=== PATIENT | male | born 1975 | race Caucasian/White ===

== ENCOUNTER 2019-02-24 21:26 | Outpatient (CLI) | payer SELFPAY | END 2019-02-24 21:27 | disposition EMS.NT | LOC: EMS 21:26 | PROVIDERS: ATTEND Surgery | DX: R05 Cough (principal) ==

== ENCOUNTER 2019-11-18 23:59 | Inpatient (IN) | payer MEDICAID ==
--- NOTE | 2019-11-19 00:01 | ED Physician Documentation ---
History of Present Illness - Stated complaint Stated Complaint: AB/BACK PX - History obtained from History obtained from: Patient (Patient is a 43-year-old male who presents with severe abdominal pain with vomiting patient reports he has been drinking alcohol heavily over the last several weeks since he is not been working due to the pandemic. He reports vomiting without hematemesis she also reports multiple bowel movements daily he reports severe abdominal pain he reports he has been taking an increased amounts of Tylenol and ibuprofen and aspirin.He also reports that he has been taking a friend's Bentyl as well as Prilosec.He denies any previous history of abdominal surgeryOtherwise denies any other complaints. He denies any recent fevers, headaches, cough or sore throat denies any recent travel outside the country and denies any recent antibiotic use.) Review of Systems Constitutional: reports: Reviewed and negative Eyes: reports: Reviewed and negative Ears: reports: Reviewed and negative Nose: reports: Reviewed and negative Throat: reports: Reviewed and negative Cardiac: reports: Reviewed and negative Respiratory: reports: Reviewed and negative GI: reports: Abdominal Pain, Nausea, Vomiting, Diarrhea : reports: Reviewed and negative Skin: reports: Reviewed and negative Musculoskeletal: reports: Reviewed and negative Neurologic: reports: Reviewed and negative Psychiatric: reports: Reviewed and negative Endocrine: reports: Reviewed and negative Immunocompromised: reports: Reviewed and negative PD PAST MEDICAL HISTORY - Allergies Allergies/Adverse Reactions: Allergies Allergy/AdvReac Type Severity Reaction Status Date / Time No Known Drug Allergies Allergy Verified 11/19/19 00:23 PD ED PE NORMAL - Vitals Vital signs reviewed: Yes - General General: Alert and oriented X 3, No acute distress, Well developed/nourished - HEENT HEENT: PERRL - Neck Neck: Supple, no meningeal sign, No JVD - Cardiac Cardiac: RRR, No murmur, Strong equal pulses - Respiratory Respiratory: No respiratory distress, Clear bilaterally - Abdomen Abdomen: Other (The abdomen is diffusely tender with diminished bowel sounds he is has involuntary guarding he has positive peritoneal signs no ecchymosis no midline abdominal pulsatile mass) - Rectal Rectal: Deferred, Pt declined - Back Back: No CVA TTP, No spinal TTP - Derm Derm: Normal color, Warm and dry, No rash - Extremities Extremities: No deformity, No tenderness to palpate, Normal ROM s pain, No edema, No calf tenderness / cord - Neuro Neuro: Alert and oriented X 3, 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, No motor deficit, No sensory deficit, Normal speech - Psych Psych: Normal mood, Normal affect Results - Vitals Vitals: Vital Signs - 24 hr 11/19/19 11/19/19 11/19/19 00:10 00:36 02:16 Temperature 36.6 C Heart Rate 117 H 117 H Respiratory 24 26 H 13 Rate Blood Pressure 158/130 H 159/112 H O2 Saturation 158 H 100 Oxygen O2 Source Room air - EKG (time done) 00:25 Rate: Other (no stemi) - Labs Labs: Laboratory Tests 11/19/19 11/19/19 11/19/19 00:15 00:15 00:15 WBC 14.9 H RBC 4.79 Hgb 16.8 Hct 47.1 MCV 98.3 H MCH 35.1 H MCHC 35.7 RDW 12.9 Plt Count 244 MPV 9.3 Neut # (Auto) 12.7 H Lymph # (Auto) 1.3 L [place] # (Auto) 0.8 Eos # (Auto) 0.0 Baso # (Auto) 0.1 Absolute Nucleated RBC 0.00 Nucleated RBC % 0.0 PT 13.6 H INR 1.2 APTT 28.1 Sodium 136 Potassium 3.1 L Chloride 96 L Carbon Dioxide 20 L Anion Gap 20.0 H BUN 5 L Creatinine 0.7 Estimated GFR (MDRD) 123 Glucose 168 H Lactic Acid Calcium 9.2 Total Bilirubin 1.3 H Direct Bilirubin 0.5 AST 156 H ALT 100 H Alkaline Phosphatase 145 H Total Creatine Kinase 90 Troponin I High Sens Total Protein 8.1 Albumin 4.8 Globulin 3.3 Lipase 1510 H Salicylates < 6.0 Acetaminophen 11 Ethyl Alcohol 39.6 11/19/19 11/19/19 00:15 00:15 WBC RBC Hgb Hct MCV MCH MCHC RDW Plt Count MPV Neut # (Auto) Lymph # (Auto) [place] # (Auto) Eos # (Auto) Baso # (Auto) Absolute Nucleated RBC Nucleated RBC % PT INR APTT Sodium Potassium Chloride Carbon Dioxide Anion Gap BUN Creatinine Estimated GFR (MDRD) Glucose Lactic Acid 4.6 H* Calcium Total Bilirubin Direct Bilirubin AST ALT Alkaline Phosphatase Total Creatine Kinase Troponin I High Sens 5.1 Total Protein Albumin Globulin Lipase Salicylates Acetaminophen Ethyl Alcohol PD MEDICAL DECISION MAKING - ED course Complexity details: considered differential (History and exam are concerning for perforated gastric ulcer also in the differential would be pancreatitis as well, patient initially triggered sepsis criteria, will treat empirically with IVF and IV Zosyn. ) - Consults Consults: Discussed case with (02:22 dr. mai, will admit patient.) - Critical Care Time(min): 30 Time Includes: Direct patient care, Review records, Reassess patient, Document care, Medical consult Data interpretation: Labs, CXR Procedures included in critical care time: Peripheral IV Procedures excluded from critical care time: EKG Departure - Departure Disposition: 66 [facility] DC/Xfer Clinical Impression: Hypokalemia, Transaminitis Pancreatitis Qualifiers: Chronicity: acute Pancreatitis type: alcohol induced Acute pancreatitis complication: unspecified Qualified Code(s): K85.20 - Alcohol induced acute pancreatitis without necrosis or infection Leukocytosis Qualifiers: Leukocytosis type: unspecified Qualified Code(s): D72.829 - Elevated white blood cell count, unspecified Condition: Stable
[2019-11-19] MEDS ORDERED: SODIUM CHLORIDE 0.9% 1,000 ML IV ONE ×3 (00:15→01:25)
[2019-11-19] MEDS ORDERED: MORPHINE 2 MG/ML CARPUJECT IVP STA (00:15)
[2019-11-19] MEDS ORDERED: ONDANSETRON 4 MG/2 ML VIAL IVP STA (00:15)
[2019-11-19 00:28] LABS: BASOPHILS # (AUTO) 0.1 10^3/uL (0.0-0.1); BASOPHILS % (AUTO) 0.5 %; EOSINOPHILS % (AUTO) 0.2 %; HGB - HEMOGLOBIN 16.8 g/dL (14.0-18.0); LYMPHOCYTES # (AUTO) 1.3 10^3/uL (1.5-3.5); LYMPHOCYTES % (AUTO) 8.5 %; MEAN CORPUSCULAR HEMOGLOBIN 35.1 pg (27.0-31.0); MEAN CORPUSCULAR HGB CONC 35.7 g/dL (32.0-36.0); MEAN CORPUSCULAR VOLUME 98.3 fL (80.0-94.0); MEAN PLATELET VOLUME 9.3 fL (7.4-11.4); MONOCYTES # (AUTO) 0.8 10^3/uL (0.0-1.0); MONOCYTES % (AUTO) 5.2 %; NEUTROPHILS # (AUTO) 12.7 10^3/uL (1.5-6.6); NEUTROPHILS % (AUTO) 85.1 %; PLT - PLATELET COUNT 244 10^3/uL (130-450); RED BLOOD COUNT 4.79 10^6/uL (4.70-6.10); RED CELL DISTRIBUTION WIDTH 12.9 % (12.0-15.0); WHITE BLOOD COUNT 14.9 x10^3/uL (4.8-10.8)
[2019-11-19 00:33] LABS: INR 1.2 (0.8-1.2); PT - PROTHROMBIN TIME 13.6 secs (9.9-12.6)
[2019-11-19 00:40] LABS: PARTIAL THROMBOPLASTIN TIME 28.1 secs (24.9-33.3)
[2019-11-19] MEDS ORDERED: IOVERSOL 320 100 ML VIAL IVP ONE ×2 (00:47→01:29)
[2019-11-19] MEDS ORDERED: HYDROmorphone 2 MG/ML VIAL IVP STA (00:55)
[2019-11-19] MEDS ORDERED: PIPERACILLIN/TAZOBACTAM 3.375 GM in SODIUM CHLORIDE 0.9% MINIBAG 100 ML IV STA (00:57)
[2019-11-19 00:59] LABS: ACETAMINOPHEN 11 ug/mL (10-30); ALBUMIN 4.8 g/dL (3.2-5.5); ALKALINE PHOSPHATASE 145 IU/L (42-121); ALT ALANINE AMINOTRANSFERASE 100 IU/L (10-60); AST ASPARTATE AMINOTRANSFERASE 156 IU/L (10-42); BILIRUBIN,DIRECT 0.5 mg/dL (0.1-0.5); BILIRUBIN,TOTAL 1.3 mg/dL (0.2-1.0); BUN - BLOOD UREA NITROGEN 5 mg/dL (6-20); CALCIUM 9.2 mg/dL (8.5-10.3); CARBON DIOXIDE - CO2 20 mmol/L (21-32); CHLORIDE 96 mmol/L (101-111); CK- CREATINE KINASE 90 IU/L (22-269); CREATININE 0.7 mg/dL (0.6-1.2); GLUCOSE 168 mg/dL (70-100); LIPASE 1510 U/L (22-51); SALICYLATE < 6.0 mg/dL; SODIUM 136 mmol/L (135-145); TOTAL PROTEIN 8.1 g/dL (6.7-8.2)
--- NOTE | 2019-11-19 01:08 | XRAY Report ---
Reason: cp Procedure Date: 11/19/2019 Accession Number: [id number] / [id number] Procedure: XR - Chest 1 View X-Ray CPT Code: 08101 Final Report FULL RESULT: EXAM: CHEST RADIOGRAPHY EXAM DATE: 11/19/2019 12:34 AM. CLINICAL HISTORY: Chest pain COMPARISON: None. TECHNIQUE: 1 view. FINDINGS: Lungs/Pleura: No focal opacities evident. No pleural effusion. No pneumothorax. Mediastinum: Within exam limitations, the cardiomediastinal contour is normal. Other: None. IMPRESSION: Normal single view chest. RADIA
[2019-11-19] MEDS: HYDROmorphone 2 MG/ML VIAL IVP STA ×2 (01:39→02:14)
--- NOTE | 2019-11-19 01:45 | CT Report ---
Reason: abd pain Procedure Date: 11/19/2019 Accession Number: [id number] / [id number] Procedure: CT - Abdomen/Pelvis W CPT Code: Final Report FULL RESULT: EXAM: CT ABDOMEN AND PELVIS EXAM DATE: 11/19/2019 01:26 AM CLINICAL HISTORY: Abdominal pain. COMPARISONS: CHEST 1 VIEW 11/19/2019 12:13 AM. TECHNIQUE: Routine helical CT imaging was performed through the abdomen and pelvis. IV contrast: Yes. Enteric contrast: No. Reconstructions: Coronal and sagittal. In accordance with CT protocol optimization, one or more of the following dose reduction techniques were utilized for this exam: automated exposure control, adjustment of mA and/or KV based on patient size, or use of iterative reconstructive technique. FINDINGS: Lung Bases: Unremarkable. Liver: Quite fatty. No suspicious masses. Gallbladder/Bile Ducts: Unremarkable. Spleen: Unremarkable. Pancreas: Moderate peripancreatic inflammatory changes without evidence of necrosis or organized peripancreatic collection. No vascular thrombosis or pseudoaneurysm seen. Adrenal Glands: Unremarkable. Kidneys: Unremarkable. No suspicious masses or hydronephrosis. Peritoneal Cavity/Bowel: No bowel obstruction or inflammatory process seen. No free air or significant free fluid. No masses or adenopathy. The appendix is normal. No excessive stool burden. Pelvic Organs: Bladder and prostate appear unremarkable. Vasculature: No aneurysms or other significant abnormality. Bones: No significant abnormality. Other: None. IMPRESSION: 1. Moderate pancreatitis without apparent complication. 2. Quite fatty liver. RADIA
[2019-11-19] MEDS ORDERED: MAGNESIUM SULFATE 2 GRAM 2 GM/50 ML BAG IV ONE (02:32)
--- NOTE | 2019-11-19 02:34 | HISTORY & PHYSICAL EXAMINATION ---
Chief Complaint - Chief Complaint Chief Complaint: abdominal pain History of Present Illness - Admitted From Admitted From:: [facility] ED - History Obtained From Records Reviewed: yes History obtained from: patient - History of Present Illness HPI Comment/Other: Patient is a 43 y/o male who presented to the ED with complain of abdominal pain which started this morning but got worse this afternoon around 2pm. It was initially a sharp left sided pain which then progressed to his entire abdomen. Initially it was a 10/10 pain scale. Currently he rates the pain 3/10. In the ED work up included a lipase level which was 1500. CT scan of the ab domen showed acute pancreatitis. He also had a WBC of 14 and lactic acid of 4.6 For the past 2 months he has been drinking 5-7 drinks of vodka and tonic daily, since being off work. 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 He reports nausea and vomiting as well. He last vomited in the ED. He denied chest pain, dyspnea or fever. At bedside he is tremulous and slightly diaphoretic. He denies having withdrawal symptoms before. As a result of his presentation, he is being admitted for further treatment. History - Past Medical History Other Past Medical History: Patient denied any significant medical history. However he just had insurance and is yet to establish with a primary care physician - Past Surgical History Other past surgical history: He denied any significant surgical history - Family & Social History Family History Comment/Other: father: an unspecified cardiac history. mother: abdominal pain which seems to be exacerbated by diary products and spicy foods Living arrangement: At home Living Situation: With family Social History Notes: He drinks 5-7 drinks of vodka and tonic daily. He smokes 1ppd X 20 years. He occasionally smokes marijuana - POLST Patient has POLST: No POLST Status: Full Code Meds/Allgy - Allergies Allergies/Adverse Reactions: Allergies Allergy/AdvReac Type Severity Reaction Status Date / Time No Known Drug Allergies Allergy Verified 11/19/19 00:23 Review of Systems - Constitutional Constitutional: reports: Chills, Poor appetite. denies: Fever, Weakness - Eyes Eyes: denies: Pain, Vision loss - Ears, Nose & Throat Ears, Nose & Throat: denies: Vertigo, Sore throat - Cardiovascular Cariovascular: reports: Other (tachycardic). denies: Chest pain, Edema, Lightheadedness, Syncope - Respiratory Respiratory: denies: Cough, Sputum production, Wheezing, Snoring, SOB at rest - Gastrointestinal Gastrointestinal: reports: Abdominal pain (left-sided), Nausea, Vomiting, Reflux/heartburn. denies: Abdominal distention, Constipation - Genitourinary Genitourinary: denies: Dysuria, Frequency, Urgency, Hematuria, Incontinence, Flank pain - Musculoskeletal Musculoskeletal: denies: Muscle pain, Back pain, Muscle aches - Integumentary Integumentary: denies: Rash, Pruritis, Lesions - Neurological Neurological: denies: General weakness, Focal weakness, Headache, Dizziness - Psychiatric Psychiatric: reports: Other (tremulous). denies: Depression, Anxiety - Endocrine Endocrine: denies: Polyuria, Polydypsia - Hematologic/Lymphatic Hematologic/Lymphatic: denies: Anemia, Bruising Prior Level of Functionality: He is independent of activities of daily living Exam - Vital Signs Vital Signs: Vital Signs x48h Temp Pulse Resp BP Pulse Ox 11/19/19 02:16 117 H 13 159/112 H 100 11/19/19 00:36 26 H 11/19/19 00:10 36.6 C 117 H 24 158/130 H 158 H - Physical Exam General Appearance: positive: Alert, Moderate distress, Severe distress, Other (tremulous, diaphoretic) Eyes Bilateral: positive: PERRL, EOMI ENT: positive: Dry mucous membranes Neck: positive: No JVD, Trachea midline Respiratory: positive: Chest non-tender, No respiratory distress, Breath sounds nml. negative: Wheezes, Rales, Rhonchi Cardiovascular: positive: No murmur, Tachycardia Abdomen: positive: No organomegaly, Nml bowel sounds, No distention, Tenderness Back: positive: Nml inspection Skin: positive: Color nml, No rash, Warm, Diaphoresis Extremities: positive: Non-tender, Full ROM, Nml appearance, No pedal edema Neurologic/Psychiatric: positive: Oriented x3, CN's nml (2-12), Motor nml Conclusion/Plan - Problem List (1) Acute pancreatitis Conclusion/Plan: Likely 2/2 alcohol abuse Patient made NPO. IV hydration started Pain management with morphine IV Will trend lipase Will check lipid panel (2) Alcohol withdrawal Conclusion/Plan: CIWA protocol initiated (3) Leukocytosis Conclusion/Plan: Reactive vs Infection Will monitor Blood culture drawn. Qualifiers: Leukocytosis type: unspecified Qualified Code(s): D72.829 - Elevated white blood cell count, unspecified (4) Lactic acidosis Conclusion/Plan: Likely due to alcoholism in setting of pancreatitis Patient receiving IV hydration. Will trend lactic acid (5) Tobacco abuse Conclusion/Plan: Nicotine patch ordered. - Lab Results Fish Bones: 11/19/19 00:15 11/19/19 00:15 Core Measures - Anticipated LOS I expect patient to be DC'd or transferred within 96 hours.: Yes - DVT/VTE - Prophylaxis VTE/DVT Device ordered at admit?: Yes
[2019-11-19] MEDS ORDERED: NICOTINE 14 MG PATCH TOP STA (03:12)
[2019-11-19] MEDS: LORazepam 2 MG/ML VIAL IVP PRN ×5 (03:17→23:15)
[2019-11-19] MEDS: SODIUM CHLORIDE 0.9% 1,000 ML IV SCH (03:19)
[2019-11-19] MEDS: SODIUM CHLORIDE FLUSH 0.9% 10 ML SYRINGE IVP PRN ×2 (03:19→06:33)
[2019-11-19] MEDS: POTASSIUM CHLOR 10 MEQ/100 ML 10 MEQ/100 ML BAG IV SCH ×4 (04:34→08:56)
[2019-11-19 05:22] LABS: BASOPHILS % (AUTO) 0.3 %; HGB - HEMOGLOBIN 14.5 g/dL (14.0-18.0); LYMPHOCYTES # (AUTO) 0.9 10^3/uL (1.5-3.5); LYMPHOCYTES % (AUTO) 6.9 %; MEAN CORPUSCULAR HEMOGLOBIN 35.3 pg (27.0-31.0); MEAN CORPUSCULAR HGB CONC 34.9 g/dL (32.0-36.0); MEAN CORPUSCULAR VOLUME 101.2 fL (80.0-94.0); MEAN PLATELET VOLUME 9.4 fL (7.4-11.4); MONOCYTES # (AUTO) 0.5 10^3/uL (0.0-1.0); NEUTROPHILS # (AUTO) 11.3 10^3/uL (1.5-6.6); NEUTROPHILS % (AUTO) 88.3 %; PLT - PLATELET COUNT 184 10^3/uL (130-450); RED BLOOD COUNT 4.11 10^6/uL (4.70-6.10); RED CELL DISTRIBUTION WIDTH 13.2 % (12.0-15.0); WHITE BLOOD COUNT 12.8 x10^3/uL (4.8-10.8)
[2019-11-19 05:38] LABS: CHOL/HDL RATIO 4.2 (<5.0); CHOLESTEROL 164 mg/dL; HDL CHOLESTEROL 39 mg/dL; LDL CHOLESTEROL,CALCULATED 105 mg/dL; LDL/HDL RATIO 2.7 (<3.6); VLDL CHOLESTEROL 20 mg/dL
[2019-11-19 05:53] LABS: ALBUMIN 3.5 g/dL (3.2-5.5); ALBUMIN/GLOBULIN RATIO 1.3 (1.0-2.2); BILIRUBIN,TOTAL 1.6 mg/dL (0.2-1.0); CALCIUM 7.7 mg/dL (8.5-10.3); CREATININE 0.6 mg/dL (0.6-1.2); TOTAL PROTEIN 6.2 g/dL (6.7-8.2)
[2019-11-19] MEDS: PANTOPRAZOLE 40 MG VIAL IVP SCH (06:33)
[2019-11-19] MEDS ORDERED: LORazepam 2 MG/ML VIAL IVP PRN (08:49)
[2019-11-19] MEDS: MULTIVITAMIN 10 ML, THIAMINE INJ 100 MG, FOLIC ACID INJ 1 MG in SODIUM CHLORIDE 0.9% 1,... IV SCH (08:57)
[2019-11-19] MEDS: SODIUM CHLORIDE FLUSH 0.9% 10 ML SYRINGE IVP SCH ×2 (08:59→18:20)
[2019-11-19] MEDS ORDERED: THIAMINE 100 MG TABLET PO SCH (09:00)
[2019-11-19] MEDS ORDERED: PRENATAL VITAMIN TABLET PO SCH (09:00)
[2019-11-19 10:23] LABS: MUDS CUTOFF CONCENTRATIONS CUTOFF CONC BELOW:
[2019-11-19] MEDS: ONDANSETRON 4 MG/2 ML VIAL IVP PRN (10:23)
[2019-11-19 10:42] LABS: AMPHETAMINE SCREEN,URINE NEGATIVE (NEGATIVE); BENZODIAZEPINES SCREEN, URINE POSITIVE (NEGATIVE); COCAINE SCREEN URINE NEGATIVE (NEGATIVE); METHADONE SCREEN, URINE NEGATIVE (NEGATIVE); METHAMPHETAMINES SCREEN, URINE NEGATIVE (NEGATIVE); OPIATE SCREEN, URINE POSITIVE (NEGATIVE); OXYCODONE SCREEN, URINE NEGATIVE (NEGATIVE); PROPOXYPHENE SCREEN, URINE NEGATIVE (NEGATIVE); TRICYCLIC ANTIDEPRESSANT,URINE NEGATIVE (NEGATIVE)
[2019-11-19] MEDS: MORPHINE 2 MG/ML CARPUJECT IVP PRN ×2 (13:05→17:02)
[2019-11-19] MEDS: LORazepam 2 MG/ML VIAL IVP SCH ×2 (13:09→18:21)
--- NOTE | 2019-11-19 14:49 | PHARMACY PROGRESS NOTE ---
- Best Possible Medication History Admit Date and Time: 11/19/19 0225 Processed by: Pharmacy Medication History completed: Yes Patient Interview: Completed As the person ultimately responsible for medication therapy, providers are able to order a medication from an existing home medication list in [facility] via the "Reconcile Routine" prior to Confirmation of that medication by field support engineer. Such practice is discouraged except when the physician, in their clinical gideon gment, deems that a medical need exists for a medication without regard to previous use. Patient stated he takes bentyl and Omeprazole at home
[2019-11-19] MEDS ORDERED: HALOPERIDOL 5 MG/ML VIAL IVP ONE (23:22)
[2019-11-20] MEDS: SODIUM CHLORIDE 0.9% 1,000 ML IV SCH ×5 (00:42→22:18)
[2019-11-20] MEDS: LORazepam 2 MG/ML VIAL IVP SCH ×4 (00:49→17:46)
[2019-11-20] MEDS: DEXMEDETOMIDINE 400 MCG/100 ML 100 ML IV PRN ×3 (01:04→12:42)
[2019-11-20] MEDS: LORazepam 2 MG/ML VIAL IVP PRN ×7 (01:12→16:52)
[2019-11-20] MEDS: SODIUM CHLORIDE FLUSH 0.9% 10 ML SYRINGE IVP PRN ×8 (01:34→23:55)
[2019-11-20] MEDS: SODIUM CHLORIDE FLUSH 0.9% 10 ML SYRINGE IVP SCH ×4 (01:41→22:56)
[2019-11-20] MEDS: MORPHINE 2 MG/ML CARPUJECT IVP PRN ×2 (02:16→19:40)
[2019-11-20 05:05] LABS: BASOPHILS # (AUTO) 0.1 10^3/uL (0.0-0.1); BASOPHILS % (AUTO) 0.3 %; EOSINOPHILS # (AUTO) 0.4 10^3/uL (0.0-0.7); EOSINOPHILS % (AUTO) 2.6 %; HGB - HEMOGLOBIN 13.3 g/dL (14.0-18.0); LYMPHOCYTES # (AUTO) 1.8 10^3/uL (1.5-3.5); LYMPHOCYTES % (AUTO) 11.9 %; MEAN CORPUSCULAR HEMOGLOBIN 34.6 pg (27.0-31.0); MEAN CORPUSCULAR HGB CONC 34.1 g/dL (32.0-36.0); MEAN CORPUSCULAR VOLUME 101.6 fL (80.0-94.0); MEAN PLATELET VOLUME 10.1 fL (7.4-11.4); MONOCYTES # (AUTO) 0.6 10^3/uL (0.0-1.0); MONOCYTES % (AUTO) 4.3 %; NEUTROPHILS # (AUTO) 12.1 10^3/uL (1.5-6.6); NEUTROPHILS % (AUTO) 80.4 %; PLT - PLATELET COUNT 142 10^3/uL (130-450); RED BLOOD COUNT 3.84 10^6/uL (4.70-6.10); RED CELL DISTRIBUTION WIDTH 13.4 % (12.0-15.0)
[2019-11-20 05:21] LABS: ALBUMIN/GLOBULIN RATIO 1.1 (1.0-2.2); ALKALINE PHOSPHATASE 82 IU/L (42-121); ALT ALANINE AMINOTRANSFERASE 53 IU/L (10-60); AST ASPARTATE AMINOTRANSFERASE 80 IU/L (10-42); BILIRUBIN,TOTAL 1.8 mg/dL (0.2-1.0); BUN - BLOOD UREA NITROGEN < 5 mg/dL (6-20); CALCIUM 7.9 mg/dL (8.5-10.3); CARBON DIOXIDE - CO2 23 mmol/L (21-32); CHLORIDE 105 mmol/L (101-111); CREATININE 0.5 mg/dL (0.6-1.2); GLUCOSE 84 mg/dL (70-100); LIPASE 329 U/L (22-51); SODIUM 137 mmol/L (135-145); TOTAL PROTEIN 5.7 g/dL (6.7-8.2)
[2019-11-20] MEDS: PANTOPRAZOLE 40 MG VIAL IVP SCH (06:11)
[2019-11-20 06:44] LABS: MAGNESIUM 1.5 mg/dL (1.7-2.8)
[2019-11-20] MEDS: POTASSIUM CHLOR 10 MEQ/100 ML 10 MEQ/100 ML BAG IV SCH ×4 (06:44→10:51)
--- NOTE | 2019-11-20 07:36 | PROVIDER PROGRESS NOTE ---
Subjective - Prog Note Date Prog Note Date: 11/20/19 - Subjective Subjective: Patient was transferred to intensive care unit overnight due to alcohol withdrawal. He was started on Precedex. This morning he was combative and aggressive. He was placed in soft restraints and given lorazepam IV. He reports no abdominal pain at the moment. He believes he has been in the hospital for 5 days. He states his been drinking for 6 and beverages a day prior to his hospitalization. He members coming to the hospital because of back pain. Current Medications - Current Medications Current Medications: Active Medications Sodium Chloride (Normal Saline 0.9%) 1,000 mls @ 150 mls/hr IV .[id number] BENNIE Last Admin: 11/20/19 06:50 Dose: 150 mls/hr Multivitamins 10 ml/ Thiamine HCl 100 mg/ Folic Acid 1 mg/Sodium Chloride 1,011.2 mls @ 100 mls/hr IV DAILY BENNIE Last Infusion: 11/20/19 00:44 Dose: Infused Dexmedetomidine/Sodium Chloride (Precedex Premix) 100 mls @ 3.975 mls/hr IV .[id number] PRN; Protocol PRN Reason: Agitation Last Admin: 11/20/19 08:22 Dose: 0.9 mcg/kg/hr, 17.888 mls/hr Potassium Chloride (Potassium Chloride) 10 meq in 100 mls @ 100 mls/hr IV Q1H BENNIE; Protocol Stop: 11/20/19 10:59 Last Admin: 11/20/19 08:33 Dose: 100 mls/hr Magnesium Sulfate (Magnesium Sulfate) 2 gm in 50 mls @ 50 mls/hr IV ONCE BENNIE; Protocol Stop: 11/20/19 12:00 Potassium Phosphate 15 mmol/ (Sodium Chloride) 255 mls @ 63 mls/hr IV ONCE ONE; Protocol Stop: 11/20/19 15:02 Lorazepam (Ativan Inj (Vial)) 1 mg IVP Q1H PRN; Protocol PRN Reason: CIWA >8 Last Admin: 11/20/19 08:32 Dose: 1 mg Lorazepam (Ativan Inj (Vial)) 2 mg IVP Q6H BENNIE Last Admin: 11/20/19 06:10 Dose: 2 mg Morphine Sulfate (Morphine (Carpuject)) 2 mg IVP Q2HR PRN PRN Reason: Pain 8 to 10 Last Admin: 11/20/19 02:16 Dose: 2 mg Ondansetron HCl (Zofran Inj) 4 mg IVP Q4HR PRN PRN Reason: Nausea / Vomiting Last Admin: 11/19/19 10:23 Dose: 4 mg Pantoprazole Sodium (Protonix) 40 mg IVP QDAC [facility] Last Admin: 11/20/19 06:11 Dose: 40 mg Sodium Chloride (Normal Saline Flush 0.9%) 10 ml IVP PRN PRN PRN Reason: NEEDED PER PROVIDER ORDERS Last Admin: 11/20/19 06:44 Dose: 10 ml Sodium Chloride (Normal Saline Flush 0.9%) 10 ml IVP 0100,0900,1700 [facility] Last Admin: 11/20/19 08:41 Dose: 10 ml Dicyclomine [Bentyl] 10 mg PO PRN PRN 11/19/19 Omeprazole 20 mg PO DAILY 11/19/19 Objective - Vital Signs/Intake & Output Reviewed Vital Signs: Yes Vital Signs: Vital Signs Temp Pulse Resp BP Pulse Ox 11/20/19 07:00 38.2 C H 89 25 H 145/95 H 93 11/20/19 06:00 90 22 134/96 H 94 11/20/19 05:00 38.0 C H 89 24 149/97 H 92 11/20/19 04:00 38.2 C H 89 26 H 109/71 93 Intake & Output: Intake & Output 11/17/19 11/18/19 11/19/19 11/20/19 23:59 23:59 23:59 23:59 Intake Total 4412.5 2085.127 Output Total 1225 425 Balance 3187.5 1660.127 - Objective General Appearance: positive: Other (He is lethargic but wakes up on verbal command. He is on Precedex. He does appear tremulous.) Eyes Bilateral: positive: Other (Pupils are dilated and reactive to light bilaterally.) ENT: positive: ENT inspection nml Neck: positive: Nml inspection Respiratory: positive: No respiratory distress. negative: Wheezes, Rales Cardiovascular: positive: No murmur, Tachycardia. negative: Irregularly irregular, Bradycardia, Systolic murmur, Diastolic murmur Abdomen: positive: Non-tender, No distention. negative: Tenderness, Guarding, Rebound Skin: positive: No rash, Warm, Dry Extremities: positive: Full ROM, No pedal edema Neurologic/Psychiatric: positive: Other (Has no focal motor deficits on exam. He is oriented to self and location but not to time) - Lab Results Fish Bones: 11/20/19 04:27 11/20/19 04:27 Other Labs: Lab Results x24hrs 11/20/19 11/20/19 11/20/19 Range/Units 04:27 04:27 04:27 WBC 15.0 H (4.8-10.8) x10^3/uL RBC 3.84 L (4.70-6.10) 10^6/uL Hgb 13.3 L (14.0-18.0) g/dL Hct 39.0 L (42.0-52.0) % MCV 101.6 H (80.0-94.0) fL MCH 34.6 H (27.0-31.0) pg MCHC 34.1 (32.0-36.0) g/dL RDW 13.4 (12.0-15.0) % Plt Count 142 (130-450) 10^3/uL MPV 10.1 (7.4-11.4) fL Neut # (Auto) 12.1 H (1.5-6.6) 10^3/uL Lymph # (Auto) 1.8 (1.5-3.5) 10^3/uL [place] # (Auto) 0.6 (0.0-1.0) 10^3/uL Eos # (Auto) 0.4 (0.0-0.7) 10^3/uL Baso # (Auto) 0.1 (0.0-0.1) 10^3/uL Absolute Nucleated RBC 0.00 x10^3/uL Nucleated RBC % 0.0 /100WBC Sodium 137 (135-145) mmol/L Potassium 3.0 L (3.5-5.0) mmol/L Chloride 105 (101-111) mmol/L Carbon Dioxide 23 (21-32) mmol/L Anion Gap 9.0 (6-13) BUN < 5 L (6-20) mg/dL Creatinine 0.5 L (0.6-1.2) mg/dL Estimated GFR (MDRD) 181 (>89) Glucose 84 (70-100) mg/dL Calcium 7.9 L (8.5-10.3) mg/dL Phosphorus 2.0 L (2.5-4.6) mg/dL Magnesium 1.5 L (1.7-2.8) mg/dL Total Bilirubin 1.8 H (0.2-1.0) mg/dL AST 80 H (10-42) IU/L ALT 53 (10-60) IU/L Alkaline Phosphatase 82 (42-121) IU/L Total Protein 5.7 L (6.7-8.2) g/dL Albumin 3.0 L (3.2-5.5) g/dL Globulin 2.7 (2.1-4.2) g/dL Albumin/Globulin Ratio 1.1 (1.0-2.2) Lipase 329 H (22-51) U/L Nasal Screen MRSA (PCR) (NEGATIVE) Urine Opiates Screen (NEGATIVE) Ur Oxycodone Screen (NEGATIVE) Urine Methadone Screen (NEGATIVE) Ur Propoxyphene Screen (NEGATIVE) Ur Barbiturates Screen (NEGATIVE) Ur Tricyclics Screen (NEGATIVE) Ur Phencyclidine Scrn (NEGATIVE) Ur Amphetamine Screen (NEGATIVE) U Methamphetamines Scrn (NEGATIVE) U Benzodiazepines Scrn (NEGATIVE) Urine Cocaine Screen (NEGATIVE) U Cannabinoids Screen (NEGATIVE) 11/20/19 11/19/19 Range/Units 01:48 10:20 WBC (4.8-10.8) x10^3/uL RBC (4.70-6.10) 10^6/uL Hgb (14.0-18.0) g/dL Hct (42.0-52.0) % MCV (80.0-94.0) fL MCH (27.0-31.0) pg MCHC (32.0-36.0) g/dL RDW (12.0-15.0) % Plt Count (130-450) 10^3/uL MPV (7.4-11.4) fL Neut # (Auto) (1.5-6.6) 10^3/uL Lymph # (Auto) (1.5-3.5) 10^3/uL [place] # (Auto) (0.0-1.0) 10^3/uL Eos # (Auto) (0.0-0.7) 10^3/uL Baso # (Auto) (0.0-0.1) 10^3/uL Absolute Nucleated RBC x10^3/uL Nucleated RBC % /100WBC Sodium (135-145) mmol/L Potassium (3.5-5.0) mmol/L Chloride (101-111) mmol/L Carbon Dioxide (21-32) mmol/L Anion Gap (6-13) BUN (6-20) mg/dL Creatinine (0.6-1.2) mg/dL Estimated GFR (MDRD) (>89) Glucose (70-100) mg/dL Calcium (8.5-10.3) mg/dL Phosphorus (2.5-4.6) mg/dL Magnesium (1.7-2.8) mg/dL Total Bilirubin (0.2-1.0) mg/dL AST (10-42) IU/L ALT (10-60) IU/L Alkaline Phosphatase (42-121) IU/L Total Protein (6.7-8.2) g/dL Albumin (3.2-5.5) g/dL Globulin (2.1-4.2) g/dL Albumin/Globulin Ratio (1.0-2.2) Lipase (22-51) U/L Nasal Screen MRSA (PCR) NEGATIVE (NEGATIVE) Urine Opiates Screen POSITIVE H (NEGATIVE) Ur Oxycodone Screen NEGATIVE (NEGATIVE) Urine Methadone Screen NEGATIVE (NEGATIVE) Ur Propoxyphene Screen NEGATIVE (NEGATIVE) Ur Barbiturates Screen NEGATIVE (NEGATIVE) Ur Tricyclics Screen NEGATIVE (NEGATIVE) Ur Phencyclidine Scrn NEGATIVE (NEGATIVE) Ur Amphetamine Screen NEGATIVE (NEGATIVE) U Methamphetamines Scrn NEGATIVE (NEGATIVE) U Benzodiazepines Scrn POSITIVE H (NEGATIVE) Urine Cocaine Screen NEGATIVE (NEGATIVE) U Cannabinoids Screen NEGATIVE (NEGATIVE) Assessment/Plan - Problem List (1) Alcohol withdrawal Impression: Has not been hospitalized for more than 24 hours and is going through alcohol withdrawal. He required transfer to intensive care unit overnight and has been started on Precedex as well as Lorazepam IV as needed. He remains on CIAK protocol. We will continue Precedex and Lorazepam as needed and monitor him over next 24 to 48 hours. Will consult social work discuss alcohol cessation options once he is more alert. Continue banana bag. (2) Alcoholic pancreatitis Impression: His pancreatitis secondary to alcohol use. His lipase is trending down and is now at 329. Abdominal exam is benign and he reports no more pain. We will continue him on IV fluids given his alcohol withdrawal and will start him on a diet once he is able to take p.o. Qualifiers: Chronicity: acute (3) Fever Impression: He is febrile this morning with temperature of 38.2 C and his white count is elevated at 15. This may eventually be secondary to his alcohol withdrawal but will need to rule out other cause of infection. His blood cultures on admission are negative to date. We will check a chest x-ray and urinalysis. Will consider repeating blood cultures if he remains febrile. We will hold off on antibiotics in the meantime unless there is an obvious source of infection. If his abdominal pain becomes more severe, will consider repeating a CT of the abdomen and pelvis but given the improvement in his abdominal pain, will hold off for the time being.
[2019-11-20] MEDS ORDERED: MAGNESIUM SULFATE 2 GRAM 2 GM/50 ML BAG IV SCH (10:00)
[2019-11-20] MEDS: MULTIVITAMIN 10 ML, THIAMINE INJ 100 MG, FOLIC ACID INJ 1 MG in SODIUM CHLORIDE 0.9% 1,... IV SCH (10:03)
--- NOTE | 2019-11-20 10:14 | XRAY Report ---
Reason: Fever. Alcohol withdrawal. Procedure Date: 11/20/2019 Accession Number: [id number] / [id number] Procedure: XR - Chest 1 View X-Ray CPT Code: 72975 Final Report FULL RESULT: EXAM: CHEST RADIOGRAPHY EXAM DATE: 11/20/2019 09:49 AM. CLINICAL HISTORY: Fever. Alcohol withdrawal. COMPARISON: CHEST 1 VIEW 11/19/2019 12:13 AM. ABDOMEN/PELVIS W 11/19/2019 1:16 AM. TECHNIQUE: 1 view. FINDINGS: Lungs/Pleura: Progression of interstitial and vascular prominence as well as left greater than right bibasilar opacities. Small left pleural effusion. No pneumothorax. Mediastinum: Heart size and mediastinal contour appear similar. The image is rotated. Other: None. IMPRESSION: 1. New interstitial and vascular prominence most likely due to edema. 2. Significant progression of left greater than bibasilar consolidation/atelectasis and left pleural effusion. RADIA
[2019-11-20 10:29] LABS: GLUCOSE, URINE (UA) NEGATIVE (NEGATIVE); KETONES,URINE (UA) >=80 mg/dL (NEGATIVE); LEUKOCYTE ESTERASE, URINE TRACE (NEGATIVE); NITRITE,URINE NEGATIVE (NEGATIVE); OCCULT BLOOD,URINE MODERATE (NEGATIVE); PH,URINE 6.5 PH (5.0-7.5); PROTEIN,URINE TRACE mg/dL (NEGATIVE); UROBILINOGEN,URINE 0.2 (NORMAL) E.U./dL (NORMAL)
[2019-11-20 10:35] LABS: BILIRUBIN,URINE MODERATE (NEGATIVE); CLARITY,URINE CLEAR (CLEAR); ICTOTEST,URINE POSITIVE
[2019-11-20 10:38] LABS: BACTERIA,URINE Rare /HPF (None Seen); SQUAMOUS EPITHELIAL CELL,UR RARE Squamous (<= Few)
[2019-11-20] MEDS ORDERED: POTASSIUM PHOSPHATE 15 MMOL in SODIUM CHLORIDE 0.9% 250 ML IV ONE (11:00)
[2019-11-20] MEDS ORDERED: LABETALOL 20 MG/4 ML SYRINGE IVP PRN (13:37)
[2019-11-20] MEDS: DEXMEDETOMIDINE IV SCH ×3 (16:07→22:54)
[2019-11-20] MEDS: SODIUM CHLORIDE 0.9% IV SCH ×3 (16:07→22:54)
[2019-11-20] MEDS: LABETALOL 20 MG/4 ML SYRINGE IVP PRN ×2 (16:35→18:50)
[2019-11-20] MEDS: NICOTINE 14 MG PATCH TOP SCH (17:02)
[2019-11-20] MEDS ORDERED: HALOPERIDOL 5 MG/ML VIAL IM ONE (19:40)
[2019-11-20] MEDS ORDERED: HALOPERIDOL 5 MG/ML VIAL ONE (19:43)
[2019-11-20] MEDS: LORazepam 100MG/100ML D5W 100 ML IV SCH (20:05)
[2019-11-20] MEDS: LABETALOL 5 MG/1 ML 20 ML MDV IVP PRN ×2 (20:25→23:54)
[2019-11-21] MEDS: DEXMEDETOMIDINE IV SCH ×5 (02:14→22:27)
[2019-11-21] MEDS: SODIUM CHLORIDE 0.9% IV SCH ×5 (02:14→22:27)
[2019-11-21 05:00] LABS: BASOPHILS # (AUTO) 0.1 10^3/uL (0.0-0.1); BASOPHILS % (AUTO) 0.4 %; EOSINOPHILS # (AUTO) 0.4 10^3/uL (0.0-0.7); HGB - HEMOGLOBIN 14.3 g/dL (14.0-18.0); LYMPHOCYTES # (AUTO) 1.9 10^3/uL (1.5-3.5); LYMPHOCYTES % (AUTO) 9.4 %; MEAN CORPUSCULAR HEMOGLOBIN 35.4 pg (27.0-31.0); MEAN CORPUSCULAR HGB CONC 34.5 g/dL (32.0-36.0); MEAN CORPUSCULAR VOLUME 102.5 fL (80.0-94.0); MEAN PLATELET VOLUME 10.2 fL (7.4-11.4); MONOCYTES # (AUTO) 1.1 10^3/uL (0.0-1.0); MONOCYTES % (AUTO) 5.5 %; NEUTROPHILS # (AUTO) 16.3 10^3/uL (1.5-6.6); NEUTROPHILS % (AUTO) 81.9 %; PLT - PLATELET COUNT 145 10^3/uL (130-450); RED BLOOD COUNT 4.04 10^6/uL (4.70-6.10); RED CELL DISTRIBUTION WIDTH 12.8 % (12.0-15.0); WHITE BLOOD COUNT 19.8 x10^3/uL (4.8-10.8)
[2019-11-21] MEDS: LABETALOL 5 MG/1 ML 20 ML MDV IVP PRN ×6 (05:04→17:19)
[2019-11-21] MEDS: SODIUM CHLORIDE FLUSH 0.9% 10 ML SYRINGE IVP PRN ×4 (05:05→20:10)
[2019-11-21 05:11] LABS: ALBUMIN 3.1 g/dL (3.2-5.5); BILIRUBIN,TOTAL 1.5 mg/dL (0.2-1.0); CALCIUM 8.2 mg/dL (8.5-10.3); CREATININE 0.5 mg/dL (0.6-1.2); MAGNESIUM 1.7 mg/dL (1.7-2.8); PHOSPHORUS 2.1 mg/dL (2.5-4.6); TOTAL PROTEIN 6.2 g/dL (6.7-8.2)
[2019-11-21] MEDS: SODIUM CHLORIDE 0.9% 1,000 ML IV SCH (05:28)
[2019-11-21] MEDS: MORPHINE 2 MG/ML CARPUJECT IVP PRN ×3 (05:59→20:10)
[2019-11-21] MEDS ORDERED: LORazepam 2 MG/ML VIAL ONE ×7 (06:04→06:13)
[2019-11-21] MEDS: PANTOPRAZOLE 40 MG VIAL IVP SCH (06:17)
[2019-11-21] MEDS: LORazepam 100MG/100ML D5W 100 ML IV SCH ×2 (06:45→20:22)
[2019-11-21] MEDS ORDERED: POTASSIUM PHOSPHATE 15 MMOL in SODIUM CHLORIDE 0.9% 250 ML IV ONE (08:00)
--- NOTE | 2019-11-21 08:06 | PROVIDER PROGRESS NOTE ---
Subjective - Prog Note Date Prog Note Date: 11/21/19 - Subjective Subjective: The evening he became increasingly agitated despite Precedex and Ativan IV as needed. He started on Ativan drip in addition to Precedex. Overnight he also became agitated and required a dose of Haldol. He is now hypoxic and requiring 2 L of oxygen via nasal cannula. This morning he is sedated and bed and does appear to attempt to respond to commands but is unable to provide a history or open his eyes. Current Medications - Current Medications Current Medications: Active Medications Multivitamins 10 ml/ Thiamine HCl 100 mg/ Folic Acid 1 mg/Sodium Chloride 1,011.2 mls @ 100 mls/hr IV DAILY BENNIE Last Infusion: 11/20/19 20:14 Dose: Infused Dexmedetomidine HCl 400 mcg/ (Sodium Chloride) 100 mls @ 29.81 mls/hr IV .Q3H22M BENNIE; Protocol Last Titration: 11/21/19 08:54 Dose: 1.3 mcg/kg/hr, 25.84 mls/hr Sodium Chloride (Normal Saline 0.9%) 1,000 mls @ 75 mls/hr IV .[id number] BENNIE Last Infusion: 11/21/19 07:06 Dose: 75 mls/hr Lorazepam (Ativan) 100 mls @ 5 mls/hr IV .Q20H BENNIE; Protocol Last Titration: 11/21/19 08:00 Dose: 10 mg/hr, 10 mls/hr Potassium Phosphate 15 mmol/ (Sodium Chloride) 255 mls @ 63 mls/hr IV ONCE ONE; Protocol Stop: 11/21/19 12:02 Last Admin: 11/21/19 08:45 Dose: 63 mls/hr Labetalol HCl (Trandate Inj) 10 mg IVP Q2HR PRN PRN Reason: for SBP >160 or DBP >110 Last Admin: 11/21/19 08:40 Dose: 10 mg Morphine Sulfate (Morphine (Carpuject)) 2 mg IVP Q2HR PRN PRN Reason: Pain 8 to 10 Last Admin: 11/21/19 05:59 Dose: 2 mg Nicotine (Nicoderm) 1 patch TOP DAILY BENNIE Last Admin: 11/20/19 17:02 Dose: 1 patch Ondansetron HCl (Zofran Inj) 4 mg IVP Q4HR PRN PRN Reason: Nausea / Vomiting Last Admin: 11/19/19 10:23 Dose: 4 mg Pantoprazole Sodium (Protonix) 40 mg IVP QDAC [facility] Last Admin: 11/21/19 06:17 Dose: 40 mg Sodium Chloride (Normal Saline Flush 0.9%) 10 ml IVP PRN PRN PRN Reason: NEEDED PER PROVIDER ORDERS Last Admin: 11/21/19 06:17 Dose: 10 ml Sodium Chloride (Normal Saline Flush 0.9%) 10 ml IVP 0100,0900,1700 [facility] Last Admin: 11/21/19 08:44 Dose: 10 ml Dicyclomine [Bentyl] 10 mg PO PRN PRN 11/19/19 Omeprazole 20 mg PO DAILY 11/19/19 Objective - Vital Signs/Intake & Output Reviewed Vital Signs: Yes Vital Signs: Vital Signs Temp Pulse Resp BP Pulse Ox 11/21/19 07:00 36.3 C L 97 34 H 147/107 H 95 11/21/19 06:00 97 27 H 127/92 H 95 11/21/19 05:09 93 20 160/125 H 95 11/21/19 05:00 91 28 H 161/110 H 95 Intake & Output: Intake & Output 11/18/19 11/19/19 11/20/19 11/21/19 23:59 23:59 23:59 23:59 Intake Total 4412.5 5021.658 1011.309 Output Total 1225 1474 1000 Balance 3187.5 3547.658 11.309 - Objective General Appearance: positive: Lethargic, Other (Sedated on Precedex and Ativan. Does appear to respond to commands but unable to open his eyes. He is diaphoretic.) Eyes Bilateral: positive: Other (Nipples are equal and reactive to light bilaterally.) ENT: positive: Other (Nasal cannula in place.) Neck: positive: Nml inspection Respiratory: positive: Other (He has rhonchorous breath sounds bilaterally. He is tachypneic.) Cardiovascular: positive: No murmur, Tachycardia. negative: Irregularly irregular Abdomen: positive: Non-tender, No distention Skin: positive: Warm, Diaphoresis. negative: Dry Extremities: positive: No pedal edema Neurologic/Psychiatric: positive: Other (He is sedated. Not following commands.) - Lab Results Fish Bones: 11/21/19 04:25 11/21/19 04:25 Other Labs: Lab Results x24hrs 11/21/19 11/21/19 11/21/19 Range/Units 04:37 04:25 04:25 WBC 19.8 H (4.8-10.8) x10^3/uL RBC 4.04 L (4.70-6.10) 10^6/uL Hgb 14.3 (14.0-18.0) g/dL Hct 41.4 L (42.0-52.0) % MCV 102.5 H (80.0-94.0) fL MCH 35.4 H (27.0-31.0) pg MCHC 34.5 (32.0-36.0) g/dL RDW 12.8 (12.0-15.0) % Plt Count 145 (130-450) 10^3/uL MPV 10.2 (7.4-11.4) fL Neut # (Auto) 16.3 H (1.5-6.6) 10^3/uL Lymph # (Auto) 1.9 (1.5-3.5) 10^3/uL [place] # (Auto) 1.1 H (0.0-1.0) 10^3/uL Eos # (Auto) 0.4 (0.0-0.7) 10^3/uL Baso # (Auto) 0.1 (0.0-0.1) 10^3/uL Absolute Nucleated RBC 0.00 x10^3/uL Nucleated RBC % 0.0 /100WBC Sodium 134 L (135-145) mmol/L Potassium 3.9 (3.5-5.0) mmol/L Chloride 103 (101-111) mmol/L Carbon Dioxide 22 (21-32) mmol/L Anion Gap 9.0 (6-13) BUN 6 (6-20) mg/dL Creatinine 0.5 L (0.6-1.2) mg/dL Estimated GFR (MDRD) 181 (>89) Glucose 110 H (70-100) mg/dL POC Whole Bld Glucose 101 H (70 - 100) mg/dL Calcium 8.2 L (8.5-10.3) mg/dL Phosphorus 2.1 L (2.5-4.6) mg/dL Magnesium 1.7 (1.7-2.8) mg/dL Total Bilirubin 1.5 H (0.2-1.0) mg/dL AST 71 H (10-42) IU/L ALT 48 (10-60) IU/L Alkaline Phosphatase 90 (42-121) IU/L Total Protein 6.2 L (6.7-8.2) g/dL Albumin 3.1 L (3.2-5.5) g/dL Globulin 3.1 (2.1-4.2) g/dL Albumin/Globulin Ratio 1.0 (1.0-2.2) Lipase 85 H (22-51) U/L Urine Color Urine Clarity (CLEAR) Urine pH (5.0-7.5) PH Ur Specific [place] (1.002-1.030) Urine Protein (NEGATIVE) mg/dL Urine Glucose (UA) (NEGATIVE) mg/dL Urine Ketones (NEGATIVE) mg/dL Urine Occult Blood (NEGATIVE) Urine Nitrite (NEGATIVE) Urine Bilirubin (NEGATIVE) Urine Urobilinogen (NORMAL) E.U./dL Ur Leukocyte Esterase (NEGATIVE) Urine RBC (0-5) /HPF Urine WBC (0-3) /HPF Ur Squamous Epith Cells (<= Few) Urine Bacteria (None Seen) /HPF Urine Culture Comments 11/20/19 Range/Units 10:11 WBC (4.8-10.8) x10^3/uL RBC (4.70-6.10) 10^6/uL Hgb (14.0-18.0) g/dL Hct (42.0-52.0) % MCV (80.0-94.0) fL MCH (27.0-31.0) pg MCHC (32.0-36.0) g/dL RDW (12.0-15.0) % Plt Count (130-450) 10^3/uL MPV (7.4-11.4) fL Neut # (Auto) (1.5-6.6) 10^3/uL Lymph # (Auto) (1.5-3.5) 10^3/uL [place] # (Auto) (0.0-1.0) 10^3/uL Eos # (Auto) (0.0-0.7) 10^3/uL Baso # (Auto) (0.0-0.1) 10^3/uL Absolute Nucleated RBC x10^3/uL Nucleated RBC % /100WBC Sodium (135-145) mmol/L Potassium (3.5-5.0) mmol/L Chloride (101-111) mmol/L Carbon Dioxide (21-32) mmol/L Anion Gap (6-13) BUN (6-20) mg/dL Creatinine (0.6-1.2) mg/dL Estimated GFR (MDRD) (>89) Glucose (70-100) mg/dL POC Whole Bld Glucose (70 - 100) mg/dL Calcium (8.5-10.3) mg/dL Phosphorus (2.5-4.6) mg/dL Magnesium (1.7-2.8) mg/dL Total Bilirubin (0.2-1.0) mg/dL AST (10-42) IU/L ALT (10-60) IU/L Alkaline Phosphatase (42-121) IU/L Total Protein (6.7-8.2) g/dL Albumin (3.2-5.5) g/dL Globulin (2.1-4.2) g/dL Albumin/Globulin Ratio (1.0-2.2) Lipase (22-51) U/L Urine Color DARK YELLOW Urine Clarity CLEAR (CLEAR) Urine pH 6.5 (5.0-7.5) PH Ur Specific [place] 1.025 (1.002-1.030) Urine Protein TRACE (NEGATIVE) mg/dL Urine Glucose (UA) NEGATIVE (NEGATIVE) mg/dL Urine Ketones >=80 H (NEGATIVE) mg/dL Urine Occult Blood MODERATE H (NEGATIVE) Urine Nitrite NEGATIVE (NEGATIVE) Urine Bilirubin MODERATE H (NEGATIVE) Urine Urobilinogen 0.2 (NORMAL) (NORMAL) E.U./dL Ur Leukocyte Esterase TRACE H (NEGATIVE) Urine RBC 11-25 H (0-5) /HPF Urine WBC 6-10 H (0-3) /HPF Ur Squamous Epith Cells RARE Squamous (<= Few) Urine Bacteria Rare (None Seen) /HPF Urine Culture Comments INDICATED Assessment/Plan - Problem List (1) Alcohol withdrawal Impression: This is now day 3 of hospitalization and he is in alcohol withdrawal. He is initially on Precedex and Ativan IV as needed but has not required an Ativan drip in addition to Precedex. He is max on a Precedex and Ativan is at 11 mg an hour. He is sedated but able to protect his airway. He is diaphoretic, tachycardic, hypertensive, and previously had low-grade fevers which have since resolved. He is a low threshold for intubation given the amount of sedation required but as he is able to protect his airway, we will hold off for the time being. Will hope to wean the sedation over next 24 hours. Continue with thiamine and folic acid. Qualifiers: Complication of substance-induced condition: with delirium Qualified Code(s): F10.231 - Alcohol dependence with withdrawal delirium (2) Hypoxia Impression: He has now hypoxic requiring 2 L of oxygen. Suspect this is likely related to the pulmonary vascular congestion from amount of IV fluids he received his pancreatitis. He is at risk for ARDS given the pancreatitis. We will discontinue his IV fluids and continue with supplemental oxygen as needed. We w ill hold off on administering diuretics given the pancreatitis. He is a low threshold for intubation given his mental status as well. (3) Leukocytosis Impression: White count has been increasing is now at 19.8 with a left shift. There are no obvious signs of infection at the moment and although he was febrile previously he has not been afebrile for 24 hours any antibiotics. Suspect his white count may be reactive in nature. We will continue to monitor at this time. We will start him on empiric antibiotics if he spikes another fever. Qualifiers: Leukocytosis type: unspecified Qualified Code(s): D72.829 - Elevated white blood cell count, unspecified (4) Fever Impression: He has now been afebrile for 24 hours. Blood cultures on admission have been negative to date. Urinalysis is unremarkable. Chest x-ray does show pulmonary vascular congestion but no obvious infiltrate to suggest pneumonia. His white count has increased but this may be reactive in nature. At this time we will continue to monitor him off of antibiotics. If he spikes another fever then we will start him on empiric antibiotics and panculture him once again. (5) Alcoholic pancreatitis Impression: His lipase has been trending down since admission is now 85. He remains n.p.o. given his mental status. Once he is able to take p.o. we will start him on diet and advance as tolerated. Qualifiers: Chronicity: acute (6) Transaminitis Impression: Likely related to his alcohol use. They are trending down. We will continue to monitor.
--- NOTE | 2019-11-21 08:42 | XRAY Report ---
Reason: Hypoxia. Follow up infiltrates. Pancreatitis. Procedure Date: 11/21/2019 Accession Number: [id number] / [id number] Procedure: XR - Chest 1 View X-Ray CPT Code: 07725 Final Report FULL RESULT: EXAM: CHEST RADIOGRAPHY EXAM DATE: 11/21/2019 08:23 AM. CLINICAL HISTORY: Hypoxia. Follow up infiltrates. Pancreatitis. COMPARISON: CHEST 1 VIEW 11/20/2019 9:30 AM CHEST 1 VIEW 11/19/2019 12:13 AM. TECHNIQUE: 1 view. FINDINGS: Lungs/Pleura: Progression of vascular congestion. Lung volumes are low. There are bibasilar opacities with some improvement in the left lung base. There are small pleural effusions. No pneumothorax. Mediastinum: Heart size and mediastinal contour are stable. Other: None. IMPRESSION: 1. Diffuse vascular congestion. 2. Bibasilar consolidation/atelectasis with improvement in the left lung base. 3. Small pleural effusions. RADIA
[2019-11-21] MEDS: SODIUM CHLORIDE FLUSH 0.9% 10 ML SYRINGE IVP SCH ×3 (08:44→17:18)
[2019-11-21] MEDS: MULTIVITAMIN 10 ML, THIAMINE INJ 100 MG, FOLIC ACID INJ 1 MG in SODIUM CHLORIDE 0.9% 1,... IV SCH (09:00)
[2019-11-21] MEDS: NICOTINE 14 MG PATCH TOP SCH (09:18)
[2019-11-22] MEDS: MORPHINE 2 MG/ML CARPUJECT IVP PRN ×3 (00:51→21:56)
[2019-11-22] MEDS: SODIUM CHLORIDE FLUSH 0.9% 10 ML SYRINGE IVP PRN ×3 (00:52→04:58)
[2019-11-22] MEDS: LABETALOL 5 MG/1 ML 20 ML MDV IVP PRN ×2 (01:07→04:51)
[2019-11-22] MEDS: SODIUM CHLORIDE FLUSH 0.9% 10 ML SYRINGE IVP SCH ×4 (01:08→16:09)
[2019-11-22] MEDS: SODIUM CHLORIDE 0.9% IV SCH ×4 (02:47→21:05)
[2019-11-22] MEDS: DEXMEDETOMIDINE IV SCH ×4 (02:47→21:05)
[2019-11-22 05:08] LABS: BASOPHILS # (AUTO) 0.1 10^3/uL (0.0-0.1); BASOPHILS % (AUTO) 0.3 %; EOSINOPHILS # (AUTO) 0.6 10^3/uL (0.0-0.7); EOSINOPHILS % (AUTO) 3.8 %; HGB - HEMOGLOBIN 13.8 g/dL (14.0-18.0); LYMPHOCYTES # (AUTO) 1.7 10^3/uL (1.5-3.5); LYMPHOCYTES % (AUTO) 11.4 %; MEAN CORPUSCULAR HEMOGLOBIN 35.4 pg (27.0-31.0); MEAN CORPUSCULAR HGB CONC 34.8 g/dL (32.0-36.0); MEAN CORPUSCULAR VOLUME 101.8 fL (80.0-94.0); MEAN PLATELET VOLUME 10.1 fL (7.4-11.4); MONOCYTES # (AUTO) 1.4 10^3/uL (0.0-1.0); MONOCYTES % (AUTO) 9.9 %; NEUTROPHILS # (AUTO) 10.8 10^3/uL (1.5-6.6); PLT - PLATELET COUNT 152 10^3/uL (130-450); RED CELL DISTRIBUTION WIDTH 13.2 % (12.0-15.0); WHITE BLOOD COUNT 14.6 x10^3/uL (4.8-10.8)
[2019-11-22 05:13] LABS: ALBUMIN 2.7 g/dL (3.2-5.5); ALBUMIN/GLOBULIN RATIO 0.8 (1.0-2.2); BILIRUBIN,TOTAL 1.6 mg/dL (0.2-1.0); CALCIUM 8.3 mg/dL (8.5-10.3); CREATININE 0.6 mg/dL (0.6-1.2); MAGNESIUM 1.7 mg/dL (1.7-2.8); PHOSPHORUS 2.5 mg/dL (2.5-4.6); TOTAL PROTEIN 5.9 g/dL (6.7-8.2)
[2019-11-22] MEDS: LORazepam 100MG/100ML D5W 100 ML IV SCH (05:16)
[2019-11-22] MEDS: PANTOPRAZOLE 40 MG VIAL IVP SCH (06:34)
[2019-11-22] MEDS: POTASSIUM CHLOR 10 MEQ/100 ML 10 MEQ/100 ML BAG IV SCH ×4 (06:38→09:51)
--- NOTE | 2019-11-22 07:35 | PROVIDER PROGRESS NOTE ---
Subjective - Prog Note Date Prog Note Date: 11/22/19 - Subjective Subjective: He remains sedated on lorazepam and Precedex. He does open his eyes and mumble words at times. He appears to be saying "when can I go home." Does not follow commands consistently. Current Medications - Current Medications Current Medications: Active Medications Multivitamins 10 ml/ Thiamine HCl 100 mg/ Folic Acid 1 mg/Sodium Chloride 1,011.2 mls @ 100 mls/hr IV DAILY BENNIE Last Admin: 11/22/19 08:40 Dose: 100 mls/hr Dexmedetomidine HCl 400 mcg/ (Sodium Chloride) 100 mls @ 13.91 mls/hr IV .Q7H12M [facility]ENNIE; Protocol Last Titration: 11/22/19 09:15 Dose: 0.9 mcg/kg/hr, 17.89 mls/hr Lorazepam (Ativan) 100 mls @ 5 mls/hr IV .Q20H [facility]ENNIE; Protocol Last Titration: 11/22/19 08:21 Dose: 4 mg/hr, 4 mls/hr Potassium Chloride (Potassium Chloride) 10 meq in 100 mls @ 100 mls/hr IV Q1H BENNIE; Protocol Stop: 11/22/19 10:59 Last Admin: 11/22/19 09:51 Dose: 100 mls/hr Labetalol HCl (Trandate Inj) 10 mg IVP Q2HR PRN PRN Reason: for SBP >160 or DBP >110 Last Admin: 11/22/19 04:51 Dose: 10 mg Morphine Sulfate (Morphine (Carpuject)) 2 mg IVP Q2HR PRN PRN Reason: Pain 8 to 10 Last Admin: 11/22/19 04:58 Dose: 2 mg Nicotine (Nicoderm) 1 patch TOP DAILY BENNIE Last Admin: 11/22/19 08:51 Dose: 1 patch Ondansetron HCl (Zofran Inj) 4 mg IVP Q4HR PRN PRN Reason: Nausea / Vomiting Last Admin: 11/19/19 10:23 Dose: 4 mg Pantoprazole Sodium (Protonix) 40 mg IVP QDAC [facility] Last Admin: 11/22/19 06:34 Dose: 40 mg Sodium Chloride (Normal Saline Flush 0.9%) 10 ml IVP PRN PRN PRN Reason: NEEDED PER PROVIDER ORDERS Last Admin: 11/22/19 04:58 Dose: 10 ml Sodium Chloride (Normal Saline Flush 0.9%) 10 ml IVP 0100,0900,1700 [facility] Last Admin: 11/22/19 06:34 Dose: 10 ml Dicyclomine [Bentyl] 10 mg PO PRN PRN 11/19/19 Omeprazole 20 mg PO DAILY 11/19/19 Objective - Vital Signs/Intake & Output Reviewed Vital Signs: Yes Vital Signs: Vital Signs Temp Pulse Resp BP Pulse Ox 11/22/19 07:00 100 28 H 150/107 H 96 11/22/19 06:00 37 C 98 29 H 149/112 H 97 11/22/19 05:00 36.9 C 93 21 159/114 H 96 11/22/19 04:00 91 25 H 148/110 H 97 Intake & Output: Intake & Output 11/19/19 11/20/19 11/21/19 11/22/19 23:59 23:59 23:59 23:59 Intake Total 4412.5 5021.658 3118.918 542.517 Output Total 1225 1474 3470 690 Balance 3187.5 3547.658 -351.082 -147.483 - Objective General Appearance: positive: Other (He is sedated with Precedex and Lorazepam. Does open his eyes and attempts to speak in short sentences. Does not follow commands consistently.) Eyes Bilateral: positive: Other (Pupils are equal and reactive to light) ENT: positive: ENT inspection nml, Other (Nasal cannula in place.) Respiratory: positive: Other (He is tachypneic. Breath sounds are clear today. No obvious rhonchi.) Cardiovascular: positive: No murmur, Tachycardia. negative: Irregularly irregular, Systolic murmur Abdomen: positive: Non-tender, No distention Skin: positive: Warm, Dry Extremities: positive: No pedal edema - Lab Results Fish Bones: 11/22/19 04:25 11/22/19 04:25 Other Labs: Lab Results x24hrs 11/22/19 11/22/19 11/22/19 Range/Units 05:52 04:25 04:25 WBC 14.6 H (4.8-10.8) x10^3/uL RBC 3.90 L (4.70-6.10) 10^6/uL Hgb 13.8 L (14.0-18.0) g/dL Hct 39.7 L (42.0-52.0) % MCV 101.8 H (80.0-94.0) fL MCH 35.4 H (27.0-31.0) pg MCHC 34.8 (32.0-36.0) g/dL RDW 13.2 (12.0-15.0) % Plt Count 152 (130-450) 10^3/uL MPV 10.1 (7.4-11.4) fL Neut # (Auto) 10.8 H (1.5-6.6) 10^3/uL Lymph # (Auto) 1.7 (1.5-3.5) 10^3/uL [place] # (Auto) 1.4 H (0.0-1.0) 10^3/uL Eos # (Auto) 0.6 (0.0-0.7) 10^3/uL Baso # (Auto) 0.1 (0.0-0.1) 10^3/uL Absolute Nucleated RBC 0.00 x10^3/uL Nucleated RBC % 0.0 /100WBC Sodium 135 (135-145) mmol/L Potassium 3.3 L (3.5-5.0) mmol/L Chloride 102 (101-111) mmol/L Carbon Dioxide 22 (21-32) mmol/L Anion Gap 11.0 (6-13) BUN 5 L (6-20) mg/dL Creatinine 0.6 (0.6-1.2) mg/dL Estimated GFR (MDRD) 147 (>89) Glucose 111 H (70-100) mg/dL POC Whole Bld Glucose 113 H (70 - 100) mg/dL Calcium 8.3 L (8.5-10.3) mg/dL Phosphorus 2.5 (2.5-4.6) mg/dL Magnesium 1.7 (1.7-2.8) mg/dL Total Bilirubin 1.6 H (0.2-1.0) mg/dL AST 50 H (10-42) IU/L ALT 38 (10-60) IU/L Alkaline Phosphatase 84 (42-121) IU/L Total Protein 5.9 L (6.7-8.2) g/dL Albumin 2.7 L (3.2-5.5) g/dL Globulin 3.2 (2.1-4.2) g/dL Albumin/Globulin Ratio 0.8 L (1.0-2.2) Lipase 54 H (22-51) U/L 11/21/19 11/21/19 Range/Units 23:49 18:12 WBC (4.8-10.8) x10^3/uL RBC (4.70-6.10) 10^6/uL Hgb (14.0-18.0) g/dL Hct (42.0-52.0) % MCV (80.0-94.0) fL MCH (27.0-31.0) pg MCHC (32.0-36.0) g/dL RDW (12.0-15.0) % Plt Count (130-450) 10^3/uL MPV (7.4-11.4) fL Neut # (Auto) (1.5-6.6) 10^3/uL Lymph # (Auto) (1.5-3.5) 10^3/uL [place] # (Auto) (0.0-1.0) 10^3/uL Eos # (Auto) (0.0-0.7) 10^3/uL Baso # (Auto) (0.0-0.1) 10^3/uL Absolute Nucleated RBC x10^3/uL Nucleated RBC % /100WBC Sodium (135-145) mmol/L Potassium (3.5-5.0) mmol/L Chloride (101-111) mmol/L Carbon Dioxide (21-32) mmol/L Anion Gap (6-13) BUN (6-20) mg/dL Creatinine (0.6-1.2) mg/dL Estimated GFR (MDRD) (>89) Glucose (70-100) mg/dL POC Whole Bld Glucose 105 H 107 H (70 - 100) mg/dL Calcium (8.5-10.3) mg/dL Phosphorus (2.5-4.6) mg/dL Magnesium (1.7-2.8) mg/dL Total Bilirubin (0.2-1.0) mg/dL AST (10-42) IU/L ALT (10-60) IU/L Alkaline Phosphatase (42-121) IU/L Total Protein (6.7-8.2) g/dL Albumin (3.2-5.5) g/dL Globulin (2.1-4.2) g/dL Albumin/Globulin Ratio (1.0-2.2) Lipase (22-51) U/L Assessment/Plan - Problem List (1) Alcohol withdrawal Impression: This is now day 4 of hospitalization and he should begin to improve from alcohol drug aspect. He is to require high doses of Ativan and Precedex. I do wonder if there may be a component of benzo delirium given the high dose of Ativan he has been receiving. He is currently on 11 mg an hour. We will decrease his Ativan to 4 mg an hour and continue the Precedex. We will reassess his neurologic status at this lower dose. Consider obtaining a CT of the head if there is no neurologic improvement over next 24 hours. Continue thiamine and folate Qualifiers: Complication of substance-induced condition: with delirium Qualified Code(s): F10.231 - Alcohol dependence with withdrawal delirium (2) Fever Impression: He does have a low-grade fever today temperature of 38.2 C. Fortunately his white count has decreased. There are no obvious signs of infection is moment. His abdominal exam is benign as it is soft and nontender. We will repeat blood cultures today but continue to hold off antibiotics. If his white count increases, will repeat imaging of the abdomen to evaluate for possible source of infection. (3) Leukocytosis Impression: White count has improved today to 14.6 and 19.8. Suspect this is likely reactive in nature but given his low-grade fevers, will repeat blood cultures. If his white count increases again, will obtain further imaging to assess for possible infection as mentioned above. Qualifiers: Leukocytosis type: unspecified Qualified Code(s): D72.829 - Elevated white blood cell count, unspecified (4) Hypoxia Impression: Remain on 2 L of oxygen via nasal cannula but saturation of increased to the high 90s. His lungs sound clear today. Continue to hold off on IV fluids given his prior imaging showed pulmonary vascular congestion. (5) Alcoholic pancreatitis Impression: His lipase continues to decline and is now at 54. His abdominal exam is benign. We will maintain n.p.o. status given his alcohol withdrawal. Consider repeating imaging if his white count increasing continues to spike low-grade fevers. Qualifiers: Chronicity: acute (6) Transaminitis Impression: Likely secondary to his alcohol abuse and continues to improve. Monitor LFTs.
[2019-11-22] MEDS: MULTIVITAMIN 10 ML, THIAMINE INJ 100 MG, FOLIC ACID INJ 1 MG in SODIUM CHLORIDE 0.9% 1,... IV SCH (08:40)
[2019-11-22] MEDS: NICOTINE 14 MG PATCH TOP SCH (08:51)
[2019-11-23] MEDS: SODIUM CHLORIDE FLUSH 0.9% 10 ML SYRINGE IVP SCH ×3 (00:11→18:11)
[2019-11-23] MEDS: LABETALOL 5 MG/1 ML 20 ML MDV IVP PRN ×3 (01:06→05:06)
[2019-11-23] MEDS: SODIUM CHLORIDE 0.9% IV SCH ×5 (01:08→22:42)
[2019-11-23] MEDS: DEXMEDETOMIDINE IV SCH ×5 (01:08→22:42)
[2019-11-23 05:02] LABS: BASOPHILS % (AUTO) 0.5 %; EOSINOPHILS % (AUTO) 3.1 %; HGB - HEMOGLOBIN 14.2 g/dL (14.0-18.0); LYMPHOCYTES % (AUTO) 13.4 %; MEAN CORPUSCULAR HEMOGLOBIN 35.2 pg (27.0-31.0); MEAN CORPUSCULAR HGB CONC 34.8 g/dL (32.0-36.0); MEAN CORPUSCULAR VOLUME 101.2 fL (80.0-94.0); MEAN PLATELET VOLUME 9.8 fL (7.4-11.4); MONOCYTES % (AUTO) 14.1 %; NEUTROPHILS % (AUTO) 68.1 %; PLT - PLATELET COUNT 193 10^3/uL (130-450); RED BLOOD COUNT 4.03 10^6/uL (4.70-6.10); RED CELL DISTRIBUTION WIDTH 12.9 % (12.0-15.0); WHITE BLOOD COUNT 13.1 x10^3/uL (4.8-10.8)
[2019-11-23 05:13] LABS: ABNORMAL LYMPHS % (MANUAL) 0 %; BAND NEUTROPHILS % (MANUAL) 0 %
[2019-11-23 05:16] LABS: ALBUMIN 2.7 g/dL (3.2-5.5); ALBUMIN/GLOBULIN RATIO 0.8 (1.0-2.2); CALCIUM 8.5 mg/dL (8.5-10.3); CREATININE 0.6 mg/dL (0.6-1.2); MAGNESIUM 1.7 mg/dL (1.7-2.8); PHOSPHORUS 3.7 mg/dL (2.5-4.6); TOTAL PROTEIN 5.9 g/dL (6.7-8.2)
[2019-11-23 05:32] LABS: BASOPHILS # (MANUAL) 0.1 10^3/uL (0-0.1); BASOPHILS % (MANUAL) 1 %; DIFFERENTIAL COMMENT MANUAL DIFFERENTIAL; EOSINOPHILS # (MANUAL) 0.3 10^3/uL (0-0.7); LYMPHOCYTES # (MANUAL) 1.4 10^3/uL (1.5-3.5); LYMPHOCYTES % (MANUAL) 11 %; MONOCYTES # (MANUAL) 1.4 10^3/uL (0.0-1.0); PLATELET ESTIMATE, MANUAL NORMAL (130-450,000) (NORMAL); PLATELET MORPHOLOGY NORMAL APPEARANCE (NORMAL); RBC MORPHOLOGY (MULTIPLE) NORMAL APPEARANCE (NORMAL)
[2019-11-23] MEDS ORDERED: MAGNESIUM SULFATE 2 GRAM 2 GM/50 ML BAG IV ONE (05:43)
[2019-11-23] MEDS: PANTOPRAZOLE 40 MG VIAL IVP SCH (06:02)
[2019-11-23] MEDS: POTASSIUM CHLOR 10 MEQ/100 ML 10 MEQ/100 ML BAG IV SCH ×4 (06:03→09:44)
--- NOTE | 2019-11-23 06:50 | PROVIDER PROGRESS NOTE ---
Subjective - Prog Note Date Prog Note Date: 11/23/19 - Subjective Subjective: He was febrile overnight with a temperature as high as 38.5 C. This morning he is off of the lorazepam drip and remains on Precedex. He is not in restraints but is more appropriate this morning. He is following commands is able to state his name. When asked if he has pain, he states he has slight epigastric pain. Current Medications - Current Medications Current Medications: Active Medications Multivitamins 10 ml/ Thiamine HCl 100 mg/ Folic Acid 1 mg/Sodium Chloride 1,011.2 mls @ 100 mls/hr IV DAILY [facility] Last Infusion: 11/22/19 19:46 Dose: Infused Dexmedetomidine HCl 400 mcg/ (Sodium Chloride) 100 mls @ 13.91 mls/hr IV .Q7H12M [facility]; Protocol Last Titration: 11/23/19 06:50 Dose: 1 mcg/kg/hr, 19.88 mls/hr Potassium Chloride (Potassium Chloride) 10 meq in 100 mls @ 100 mls/hr IV Q1H [facility]; Protocol Stop: 11/23/19 09:59 Last Admin: 11/23/19 07:10 Dose: 100 mls/hr Labetalol HCl (Trandate Inj) 10 mg IVP Q2HR PRN PRN Reason: for SBP >160 or DBP >110 Last Admin: 11/23/19 05:06 Dose: 10 mg Lorazepam (Ativan Inj (Vial)) 4 mg IVP Q2H PRN PRN Reason: Alcohol Withdrawal Morphine Sulfate (Morphine (Carpuject)) 2 mg IVP Q2HR PRN PRN Reason: Pain 8 to 10 Last Admin: 11/23/19 07:50 Dose: 2 mg Nicotine (Nicoderm) 1 patch TOP DAILY [facility] Last Admin: 11/22/19 08:51 Dose: 1 patch Ondansetron HCl (Zofran Inj) 4 mg IVP Q4HR PRN PRN Reason: Nausea / Vomiting Last Admin: 11/19/19 10:23 Dose: 4 mg Pantoprazole Sodium (Protonix) 40 mg IVP QDAC [facility] Last Admin: 11/23/19 06:02 Dose: 40 mg Sodium Chloride (Normal Saline Flush 0.9%) 10 ml IVP PRN PRN PRN Reason: NEEDED PER PROVIDER ORDERS Last Admin: 11/22/19 04:58 Dose: 10 ml Sodium Chloride (Normal Saline Flush 0.9%) 10 ml IVP 0100,0900,1700 BENNIE Last Admin: 11/23/19 00:11 Dose: 10 ml Dicyclomine [Bentyl] 10 mg PO PRN PRN 11/19/19 Omeprazole 20 mg PO DAILY 11/19/19 Objective - Vital Signs/Intake & Output Reviewed Vital Signs: Yes Vital Signs: Vital Signs Temp Pulse Resp BP Pulse Ox 11/23/19 06:00 37.7 C H 85 18 157/111 H 96 11/23/19 05:51 168/113 H 11/23/19 05:38 156/109 H 11/23/19 05:20 158/107 H 11/23/19 05:15 129/104 H 11/23/19 05:10 137/104 H 11/23/19 05:00 37.4 C 88 27 H 164/121 H 96 11/23/19 04:00 37.4 C 88 23 144/111 H 95 11/23/19 03:50 82 157/112 H 11/23/19 03:37 81 156/109 H 11/23/19 03:28 82 158/113 H 11/23/19 03:22 83 160/109 H 11/23/19 03:18 82 162/119 H 11/23/19 03:00 37.6 C H 80 18 158/115 H 96 Intake & Output: Intake & Output 11/20/19 11/21/19 11/22/19 11/23/19 23:59 23:59 23:59 23:59 Intake Total 5021.658 3118.918 2217.980 200.122 Output Total 1474 3470 2680 1260 Balance 3547.658 -351.082 -462.020 -1059.878 - Objective General Appearance: positive: Lethargic, Other (He is lethargic but is able to open his eyes to command. Also is able to speak in short sentences. He was able to give me a thumbs up when I asked him to.) Eyes Bilateral: positive: Conjunctivae nml ENT: positive: ENT inspection nml Neck: positive: Nml inspection Respiratory: positive: No respiratory distress, Other (His lung sounds are clear. He is no longer tachypneic.). negative: Wheezes, Rales Cardiovascular: positive: Regular rate & rhythm, No murmur. negative: Tachycardia Abdomen: positive: Non-tender, No distention, Other (He reports abdominal pain but he is not tender on examination.). negative: Guarding, Rebound Skin: positive: Warm, Dry Extremities: positive: No pedal edema Neurologic/Psychiatric: positive: Other (He is oriented to self but not to time or location at the moment. He is able to move all 4 extremities when asked.) - Lab Results Fish Bones: 11/23/19 04:30 11/23/19 04:30 Other Labs: Lab Results x24hrs 11/23/19 11/23/19 11/22/19 Range/Units 04:30 04:30 23:37 WBC 13.1 H (4.8-10.8) x10^3/uL RBC 4.03 L (4.70-6.10) 10^6/uL Hgb 14.2 (14.0-18.0) g/dL Hct 40.8 L (42.0-52.0) % MCV 101.2 H (80.0-94.0) fL MCH 35.2 H (27.0-31.0) pg MCHC 34.8 (32.0-36.0) g/dL RDW 12.9 (12.0-15.0) % Plt Count 193 (130-450) 10^3/uL MPV 9.8 (7.4-11.4) fL Neut # (Auto) Not Reportable Lymph # (Auto) Not Reportable [place] # (Auto) Not Reportable Eos # (Auto) Not Reportable Baso # (Auto) Not Reportable Absolute Nucleated RBC Not Reportable Total Counted 100 Band Neuts % (Manual) 0 (0 - 10) % Abnorm Lymph % (Manual) 0 % Nucleated RBC % Not Reportable Neutrophils # (Manual) 9.8 H (1.5-6.6) 10^3/uL Lymphocytes # (Manual) 1.4 L (1.5-3.5) 10^3/uL Monocytes # (Manual) 1.4 H (0.0-1.0) 10^3/uL Eosinophils # (Manual) 0.3 (0-0.7) 10^3/uL Basophils # (Manual) 0.1 (0-0.1) 10^3/uL Differential Comment MANUAL DIFFERENTIAL WBC Morphology NORMAL APPEARANCE (NORMAL) Platelet Estimate NORMAL (130-450,000) (NORMAL) Platelet Morphology NORMAL APPEARANCE (NORMAL) RBC Morph Micro Appear NORMAL APPEARANCE (NORMAL) Sodium 135 (135-145) mmol/L Potassium 3.3 L (3.5-5.0) mmol/L Chloride 102 (101-111) mmol/L Carbon Dioxide 21 (21-32) mmol/L Anion Gap 12.0 (6-13) BUN 5 L (6-20) mg/dL Creatinine 0.6 (0.6-1.2) mg/dL Estimated GFR (MDRD) 147 (>89) Glucose 112 H (70-100) mg/dL POC Whole Bld Glucose 110 H (70 - 100) mg/dL Calcium 8.5 (8.5-10.3) mg/dL Phosphorus 3.7 (2.5-4.6) mg/dL Magnesium 1.7 (1.7-2.8) mg/dL Total Bilirubin 2.0 H (0.2-1.0) mg/dL AST 40 (10-42) IU/L ALT 34 (10-60) IU/L Alkaline Phosphatase 95 (42-121) IU/L Total Protein 5.9 L (6.7-8.2) g/dL Albumin 2.7 L (3.2-5.5) g/dL Globulin 3.2 (2.1-4.2) g/dL Albumin/Globulin Ratio 0.8 L (1.0-2.2) Lipase 64 H (22-51) U/L 11/22/19 11/22/19 Range/Units 17:58 11:56 WBC (4.8-10.8) x10^3/uL RBC (4.70-6.10) 10^6/uL Hgb (14.0-18.0) g/dL Hct (42.0-52.0) % MCV (80.0-94.0) fL MCH (27.0-31.0) pg MCHC (32.0-36.0) g/dL RDW (12.0-15.0) % Plt Count (130-450) 10^3/uL MPV (7.4-11.4) fL Neut # (Auto) Lymph # (Auto) [place] # (Auto) Eos # (Auto) Baso # (Auto) Absolute Nucleated RBC Total Counted Band Neuts % (Manual) (0 - 10) % Abnorm Lymph % (Manual) % Nucleated RBC % Neutrophils # (Manual) (1.5-6.6) 10^3/uL Lymphocytes # (Manual) (1.5-3.5) 10^3/uL Monocytes # (Manual) (0.0-1.0) 10^3/uL Eosinophils # (Manual) (0-0.7) 10^3/uL Basophils # (Manual) (0-0.1) 10^3/uL Differential Comment WBC Morphology (NORMAL) Platelet Estimate (NORMAL) Platelet Morphology (NORMAL) RBC Morph Micro Appear (NORMAL) Sodium (135-145) mmol/L Potassium (3.5-5.0) mmol/L Chloride (101-111) mmol/L Carbon Dioxide (21-32) mmol/L Anion Gap (6-13) BUN (6-20) mg/dL Creatinine (0.6-1.2) mg/dL Estimated GFR (MDRD) (>89) Glucose (70-100) mg/dL POC Whole Bld Glucose 101 H 110 H (70 - 100) mg/dL Calcium (8.5-10.3) mg/dL Phosphorus (2.5-4.6) mg/dL Magnesium (1.7-2.8) mg/dL Total Bilirubin (0.2-1.0) mg/dL AST (10-42) IU/L ALT (10-60) IU/L Alkaline Phosphatase (42-121) IU/L Total Protein (6.7-8.2) g/dL Albumin (3.2-5.5) g/dL Globulin (2.1-4.2) g/dL Albumin/Globulin Ratio (1.0-2.2) Lipase (22-51) U/L Assessment/Plan - Problem List (1) Alcohol withdrawal Impression: He is now hospital day 5 and he appears to be improving. He is not as combative and he is now following commands and able to participate in small conversations. He is now off of the Ativan drip but remains on Precedex. He is also not as tachycardic or tachypneic. We will continue him on Precedex and change Ativan to pushes as needed. Will limit the use of benzodiazepines as he did receive a large dose of Ativan over the past few days and there may be a component of benzo delirium. Continue to monitor his neurologic status. Qualifiers: Complication of substance-induced condition: with delirium Qualified Code(s): F10.231 - Alcohol dependence with withdrawal delirium (2) Fever Impression: He did have a fever yesterday evening but he is afebrile this morning. His white count is also trending down. The plan was to repeat imaging but given his clinical improvement, will hold off for the time being. Blood cultures are negative and repeat blood cultures from yesterday are pending. Suspect this fevers are likely from his alcohol withdrawal but as he is improving from that, if he continues to spike fevers then we will obtain a CT of the abdomen and pelvis. (3) Leukocytosis Impression: Suspect is likely reactive from his alcohol withdrawal as it is continuing to improve without IV antibiotics. He was febrile yesterday evening but suspect this is secondary to alcohol withdrawal as he is improving clinically. We will continue to monitor and consider imaging as mentioned above. Qualifiers: Leukocytosis type: unspecified Qualified Code(s): D72.829 - Elevated white blood cell count, unspecified (4) Hypoxia Impression: This has resolved and he is now saturating well on room air. Suspect was initially related to pulmonary vascular congestion due to amount of IV fluids he received in his pancreatitis. We will continue to monitor his respiratory status. (5) Alcoholic pancreatitis Impression: This has since resolved. He does complain of some epigastric pain this morning but his exam is benign. We will start him on a clear liquid diet as his mentation improves. We will keep n.p.o. until then. Qualifiers: Chronicity: acute (6) Transaminitis Impression: His total bilirubin is slightly elevated at 2.0 but his LFTs are otherwise within normal limits. This was secondary to his alcohol withdrawal. We will continue to monitor his total bilirubin.
[2019-11-23] MEDS: LORazepam 100MG/100ML D5W 100 ML IV SCH (07:30)
[2019-11-23] MEDS: MORPHINE 2 MG/ML CARPUJECT IVP PRN ×5 (07:50→20:41)
[2019-11-23] MEDS: LORazepam 2 MG/ML VIAL IVP PRN ×5 (08:32→20:40)
[2019-11-23] MEDS: NICOTINE 14 MG PATCH TOP SCH (08:46)
[2019-11-23] MEDS: MULTIVITAMIN 10 ML, THIAMINE INJ 100 MG, FOLIC ACID INJ 1 MG in SODIUM CHLORIDE 0.9% 1,... IV SCH (09:24)
[2019-11-23] MEDS ORDERED: VANCOMYCIN INJ 1 GM, VANCOMYCIN INJ 500 MG in SODIUM CHLORIDE 0.9% 500 ML IV ONE (12:30)
[2019-11-24] MEDS: SODIUM CHLORIDE FLUSH 0.9% 10 ML SYRINGE IVP SCH ×3 (01:13→18:31)
[2019-11-24] MEDS: LORazepam 2 MG/ML VIAL IVP PRN ×6 (01:14→23:43)
[2019-11-24] MEDS: MORPHINE 2 MG/ML CARPUJECT IVP PRN ×2 (02:13→20:16)
[2019-11-24] MEDS: SODIUM CHLORIDE 0.9% IV SCH ×4 (03:25→22:34)
[2019-11-24] MEDS: DEXMEDETOMIDINE IV SCH ×4 (03:25→22:34)
[2019-11-24 05:13] LABS: BASOPHILS # (AUTO) 0.1 10^3/uL (0.0-0.1); BASOPHILS % (AUTO) 0.5 %; EOSINOPHILS # (AUTO) 0.6 10^3/uL (0.0-0.7); HGB - HEMOGLOBIN 14.2 g/dL (14.0-18.0); LYMPHOCYTES # (AUTO) 1.7 10^3/uL (1.5-3.5); LYMPHOCYTES % (AUTO) 11.7 %; MEAN CORPUSCULAR HEMOGLOBIN 35.1 pg (27.0-31.0); MEAN CORPUSCULAR HGB CONC 34.8 g/dL (32.0-36.0); MEAN PLATELET VOLUME 9.9 fL (7.4-11.4); MONOCYTES # (AUTO) 2.3 10^3/uL (0.0-1.0); MONOCYTES % (AUTO) 16.1 %; NEUTROPHILS # (AUTO) 9.5 10^3/uL (1.5-6.6); NEUTROPHILS % (AUTO) 66.2 %; PLT - PLATELET COUNT 228 10^3/uL (130-450); RED BLOOD COUNT 4.04 10^6/uL (4.70-6.10); WHITE BLOOD COUNT 14.3 x10^3/uL (4.8-10.8)
[2019-11-24 05:26] LABS: ALBUMIN 2.7 g/dL (3.2-5.5); BILIRUBIN,DIRECT 0.6 mg/dL (0.1-0.5); BILIRUBIN,TOTAL 1.4 mg/dL (0.2-1.0); CALCIUM 8.7 mg/dL (8.5-10.3); CREATININE 0.6 mg/dL (0.6-1.2); MAGNESIUM 1.8 mg/dL (1.7-2.8); PHOSPHORUS 4.1 mg/dL (2.5-4.6); TOTAL PROTEIN 6.2 g/dL (6.7-8.2)
[2019-11-24] MEDS: PANTOPRAZOLE 40 MG VIAL IVP SCH (06:20)
--- NOTE | 2019-11-24 07:28 | PROVIDER PROGRESS NOTE ---
Subjective - Prog Note Date Prog Note Date: 11/24/19 - Subjective Subjective: Is febrile again overnight. White count is slightly increased today. He has required less Ativan over the past 24 hours but remains on Precedex. He is agitated at times but does follow commands intermittently. He is able to converse and keeps on saying "no" when asked any questions. Current Medications - Current Medications Current Medications: Active Medications Multivitamins 10 ml/ Thiamine HCl 100 mg/ Folic Acid 1 mg/Sodium Chloride 1,011.2 mls @ 100 mls/hr IV DAILY [facility] Last Admin: 11/24/19 08:45 Dose: 100 mls/hr Dexmedetomidine HCl 400 mcg/ (Sodium Chloride) 100 mls @ 19.88 mls/hr IV .Q5H2M [facility]; Protocol Last Admin: 11/24/19 08:51 Dose: 100 mcg/kg/hr, 1,987.5 mls/hr Labetalol HCl (Trandate Inj) 10 mg IVP Q2HR PRN PRN Reason: for SBP >160 or DBP >110 Last Admin: 11/23/19 05:06 Dose: 10 mg Lorazepam (Ativan Inj (Vial)) 2 mg IVP Q2H PRN PRN Reason: Alcohol Withdrawal Morphine Sulfate (Morphine (Carpuject)) 2 mg IVP Q2HR PRN PRN Reason: Pain 8 to 10 Last Admin: 11/24/19 02:13 Dose: 2 mg Nicotine (Nicoderm) 1 patch TOP DAILY [facility] Last Admin: 11/24/19 09:47 Dose: 1 patch Ondansetron HCl (Zofran Inj) 4 mg IVP Q4HR PRN PRN Reason: Nausea / Vomiting Last Admin: 11/19/19 10:23 Dose: 4 mg Pantoprazole Sodium (Protonix) 40 mg IVP QDAC [facility] Last Admin: 11/24/19 06:20 Dose: 40 mg Sodium Chloride (Normal Saline Flush 0.9%) 10 ml IVP PRN PRN PRN Reason: NEEDED PER PROVIDER ORDERS Last Admin: 11/22/19 04:58 Dose: 10 ml Sodium Chloride (Normal Saline Flush 0.9%) 10 ml IVP 0100,0900,1700 [facility] Last Admin: 11/24/19 09:49 Dose: 10 ml Dicyclomine [Bentyl] 10 mg PO PRN PRN 11/19/19 Omeprazole 20 mg PO DAILY 11/19/19 Objective - Vital Signs/Intake & Output Reviewed Vital Signs: Yes Vital Signs: Vital Signs Temp Pulse Resp BP Pulse Ox 11/24/19 07:00 77 13 146/101 H 96 11/24/19 06:00 77 32 H 157/103 H 97 11/24/19 05:00 80 19 130/100 H 95 11/24/19 04:00 36.7 C 78 163 H 150/107 H 97 Intake & Output: Intake & Output 11/21/19 11/22/19 11/23/19 11/24/19 23:59 23:59 23:59 23:59 Intake Total 3118.918 2217.980 2354.321 168.37 Output Total 3470 2680 3890 1850 Balance -351.082 -462.020 -1535.679 -1681.63 - Objective General Appearance: positive: Lethargic, Other (He is lethargic but does open his eyes to command. Does converse but is not oriented. Does follow commands at times. He keeps on repeating "no.") Eyes Bilateral: positive: Conjunctivae nml, Other (Pupils are dilated but reactive to light.) ENT: positive: ENT inspection nml Neck: positive: Nml inspection Respiratory: positive: No respiratory distress, Other (Once again he is not tachypneic today. Breath sounds are clear.). negative: Wheezes, Rales Cardiovascular: positive: Regular rate & rhythm, No murmur, Other (Tachycardia has resolved.). negative: Tachycardia, Systolic murmur Abdomen: positive: Non-tender, Nml bowel sounds, No distention. negative: Tenderness, Guarding, Rebound Skin: positive: Warm, Dry. negative: Diaphoresis Extremities: positive: No pedal edema Neurologic/Psychiatric: positive: Other (He is moving all 4 extremities. He is oriented to self but not to location or time.) - Lab Results Fish Bones: 11/24/19 04:58 11/24/19 04:58 Other Labs: Lab Results x24hrs 11/24/19 11/24/19 11/24/19 Range/Units 06:05 04:58 04:58 WBC 14.3 H (4.8-10.8) x10^3/uL RBC 4.04 L (4.70-6.10) 10^6/uL Hgb 14.2 (14.0-18.0) g/dL Hct 40.8 L (42.0-52.0) % MCV 101.0 H (80.0-94.0) fL MCH 35.1 H (27.0-31.0) pg MCHC 34.8 (32.0-36.0) g/dL RDW 13.0 (12.0-15.0) % Plt Count 228 (130-450) 10^3/uL MPV 9.9 (7.4-11.4) fL Neut # (Auto) 9.5 H (1.5-6.6) 10^3/uL Lymph # (Auto) 1.7 (1.5-3.5) 10^3/uL [place] # (Auto) 2.3 H (0.0-1.0) 10^3/uL Eos # (Auto) 0.6 (0.0-0.7) 10^3/uL Baso # (Auto) 0.1 (0.0-0.1) 10^3/uL Absolute Nucleated RBC 0.00 x10^3/uL Nucleated RBC % 0.0 /100WBC Sodium 133 L (135-145) mmol/L Potassium 3.6 (3.5-5.0) mmol/L Chloride 97 L (101-111) mmol/L Carbon Dioxide 24 (21-32) mmol/L Anion Gap 12.0 (6-13) BUN 6 (6-20) mg/dL Creatinine 0.6 (0.6-1.2) mg/dL Estimated GFR (MDRD) 147 (>89) Glucose 90 (70-100) mg/dL POC Whole Bld Glucose 79 (70 - 100) mg/dL Calcium 8.7 (8.5-10.3) mg/dL Phosphorus 4.1 (2.5-4.6) mg/dL Magnesium 1.8 (1.7-2.8) mg/dL Total Bilirubin 1.4 H (0.2-1.0) mg/dL Direct Bilirubin 0.6 H (0.1-0.5) mg/dL AST 39 (10-42) IU/L ALT 32 (10-60) IU/L Alkaline Phosphatase 96 (42-121) IU/L Total Protein 6.2 L (6.7-8.2) g/dL Albumin 2.7 L (3.2-5.5) g/dL Globulin 3.5 (2.1-4.2) g/dL 11/24/19 11/23/19 11/23/19 Range/Units 00:14 17:51 12:24 WBC (4.8-10.8) x10^3/uL RBC (4.70-6.10) 10^6/uL Hgb (14.0-18.0) g/dL Hct (42.0-52.0) % MCV (80.0-94.0) fL MCH (27.0-31.0) pg MCHC (32.0-36.0) g/dL RDW (12.0-15.0) % Plt Count (130-450) 10^3/uL MPV (7.4-11.4) fL Neut # (Auto) (1.5-6.6) 10^3/uL Lymph # (Auto) (1.5-3.5) 10^3/uL [place] # (Auto) (0.0-1.0) 10^3/uL Eos # (Auto) (0.0-0.7) 10^3/uL Baso # (Auto) (0.0-0.1) 10^3/uL Absolute Nucleated RBC x10^3/uL Nucleated RBC % /100WBC Sodium (135-145) mmol/L Potassium (3.5-5.0) mmol/L Chloride (101-111) mmol/L Carbon Dioxide (21-32) mmol/L Anion Gap (6-13) BUN (6-20) mg/dL Creatinine (0.6-1.2) mg/dL Estimated GFR (MDRD) (>89) Glucose (70-100) mg/dL POC Whole Bld Glucose 86 90 92 (70 - 100) mg/dL Calcium (8.5-10.3) mg/dL Phosphorus (2.5-4.6) mg/dL Magnesium (1.7-2.8) mg/dL Total Bilirubin (0.2-1.0) mg/dL Direct Bilirubin (0.1-0.5) mg/dL AST (10-42) IU/L ALT (10-60) IU/L Alkaline Phosphatase (42-121) IU/L Total Protein (6.7-8.2) g/dL Albumin (3.2-5.5) g/dL Globulin (2.1-4.2) g/dL Assessment/Plan - Problem List (1) Alcohol withdrawal Impression: Please be clinically improving. He is requiring less Ativan each day but remains on Precedex. He is more conversant today although still not oriented. He is able to follow some commands. He is also able to tolerate a liquid diet. We will continue him on Precedex and decrease the dose of Ativan. There may be a component of benzo delirium we will try to limit the amount of Ativan he is receiving. Continue to monitor his neurologic status. Qualifiers: Complication of substance-induced condition: with delirium Qualified Code(s): F10.231 - Alcohol dependence with withdrawal delirium (2) Fever Impression: He was once again borderline febrile yesterday. Blood cultures from admission did grow 1 out of 4 bottles with gram-positive bacilli although I suspect this is contaminant. I did give him 1 dose of vancomycin IV empirically yesterday. His white count is slightly increased today but he is afebrile this morning. Given his fevers yesterday, I have ordered for CT of the abdomen pelvis with IV contrast to evaluate for any possible source of infection. His repeat blood cultures from a few days ago have been negative. His urine culture is also negative. He is not hypoxic but will consider repeating a chest x-ray to evaluate for an infiltrate. We will continue to trend his white count on a daily basis and follow-up with CT the abdomen pelvis. (3) Leukocytosis Impression: Slightly increased today compared to yesterday. He is also febrile yesterday with low-grade fevers. This may be due to his alcohol withdrawal but given the slight bump in white count, we will obtain a CT of the abdomen pelvis with IV contrast. Continue to hold off on antibiotics unless there is an obvious source of infection. The blood culture from admission is likely a contaminant. Qualifiers: Leukocytosis type: unspecified Qualified Code(s): D72.829 - Elevated white blood cell count, unspecified (4) Alcoholic pancreatitis Impression: Abdominal exam is benign and his lipase has decreased into the 50s. Given his fever and bump in white count, will obtain a CT of the abdomen pelvis with IV contrast. He is able to tolerate a liquid diet now we will continue him on a full liquid diet as tolerated as long as his neurologic status permits. Qualifiers: Chronicity: acute (5) Gram-positive bacteremia Impression: His blood cultures from admission were positive for gram-positive bacilli. This is likely contaminant given it grew over 72 hours after admission and he has no risk factors such as malignancy, indwelling catheters, or cardiac valve replacements. Repeat blood cultures since admission have also been negative. He did receive 1 dose of IV vancomycin yesterday empirically given his borderline fevers but we will continue to monitor him off of antibiotics in the meantime. We will await speciation of the culture. (6) Transaminitis Impression: His LFTs have improved and his total bilirubin is now only minimally elevated. This is likely secondary to his alcohol use. (7) Hypoxia Impression: This has resolved.
[2019-11-24] MEDS ORDERED: IOVERSOL 320 100 ML VIAL IVP ONE ×2 (07:46→08:48)
[2019-11-24] MEDS: MULTIVITAMIN 10 ML, THIAMINE INJ 100 MG, FOLIC ACID INJ 1 MG in SODIUM CHLORIDE 0.9% 1,... IV SCH (08:45)
[2019-11-24] MEDS: NICOTINE 14 MG PATCH TOP SCH (09:47)
--- NOTE | 2019-11-24 10:08 | CT Report ---
Reason: Fever. White count. Pancreaitits. Procedure Date: 11/24/2019 Accession Number: [id number] / [id number] Procedure: CT - Abdomen/Pelvis W CPT Code: Final Report FULL RESULT: EXAM: CT ABDOMEN AND PELVIS EXAM DATE: 11/24/2019 08:45 AM. CLINICAL HISTORY: Fever. Elevated white cell count. Pancreatitis. COMPARISONS: ABDOMEN/PELVIS W 11/19/2019 1:16 AM. TECHNIQUE: Routine helical CT imaging was performed through the abdomen and pelvis. IV contrast: 100 cc Optiray 320. Enteric contrast: Positive. Reconstructions: Coronal and sagittal. In accordance with CT protocol optimization, one or more of the following dose reduction techniques were utilized for this exam: automated exposure control, adjustment of mA and/or KV based on patient size, or use of iterative reconstructive technique. FINDINGS: Lung Bases: Small to moderate bilateral pleural effusions, passive basal atelectasis. Patchy interstitial opacities left upper lobe, right upper lobe may be infectious/inflammatory. Liver: Fatty liver. No focal liver lesion. Gallbladder/Bile Ducts: Unremarkable. Spleen: Normal. Pancreas: Persistent moderate peripancreatic edema primarily involving the body and tail. Pancreatic enhancement appears intact. No organized fluid collection. Adrenal Glands: Normal. Kidneys: Normal. No masses or hydronephrosis. Peritoneal Cavity/Bowel: Nonspecific trace ascites. No free air. Areas of apparent colonic wall thickening involving the descending and sigmoid colon may relate to nondistention, versus mild nonspecific colitis. Otherwise no mass or acute inflammatory process. No obstruction. The appendix is well visualized and normal. Pelvic Organs: Urinary bladder decompressed with indwelling Antony catheter bulb. Otherwise unremarkable. Vasculature: No aneurysms or other significant abnormality. Splenic and portal vein appear patent. Bones: No significant abnormality. Other: None. IMPRESSION: 1. Persistent peripancreatic edema consistent with acute pancreatitis. Pancreatic enhancement appears intact. No organized fluid collection. Trace ascites. 2. New small to moderate pleural effusions, passive atelectasis. Partially visualized patchy interstitial opacities in the upper lobes bilaterally may be infectious/inflammatory. 3. Areas of apparent mild colonic wall thickening may relate to nondistention, versus mild nonspecific colitis. 4. Fatty liver. 5. Other findings as noted above. [facility]
--- NOTE | 2019-11-24 10:43 | XRAY Report ---
Reason: Fever. Cough. Hypoxia. Procedure Date: 11/24/2019 Accession Number: [id number] / [id number] Procedure: XR - Chest 1 View X-Ray CPT Code: 65842 Final Report FULL RESULT: EXAM: CHEST RADIOGRAPHY EXAM DATE: 11/24/2019 10:36 AM. CLINICAL HISTORY: Fever. Cough. Hypoxia. COMPARISON: CHEST 1 VIEW 11/21/2019 8:01 AM. TECHNIQUE: 1 view. FINDINGS: Lungs/Pleura: Similar low lung volumes. Persistent interstitial opacities bilaterally. Significant pleural effusion or evidence of pneumothorax. Mediastinum: Borderline heart size. Mild central pulmonary vascular congestion. Other: None. IMPRESSION: 1. Similar low lung volumes, bilateral interstitial opacities. In the correct clinical context, viral/atypical infection could contribute to this appearance. [facility]
[2019-11-24] MEDS: DOXYCYCLINE INJ 100 MG in SODIUM CHLORIDE 0.9% MINIBAG 100 ML IV SCH ×2 (11:40→20:19)
[2019-11-24] MEDS: cefTRIAXone 1 GM in SODIUM CHLORIDE 0.9% MINIBAG 100 ML IV SCH (12:40)
[2019-11-24] MEDS: ONDANSETRON 4 MG/2 ML VIAL IVP PRN (17:27)
[2019-11-24] MEDS: SODIUM CHLORIDE FLUSH 0.9% 10 ML SYRINGE IVP PRN (21:22)
[2019-11-25] MEDS: LORazepam 2 MG/ML VIAL IVP PRN ×4 (02:10→08:31)
[2019-11-25] MEDS: SODIUM CHLORIDE FLUSH 0.9% 10 ML SYRINGE IVP SCH ×3 (02:53→17:47)
[2019-11-25] MEDS ORDERED: LORazepam 2 MG/ML VIAL IVP STA (03:21)
[2019-11-25] MEDS: DEXMEDETOMIDINE IV SCH ×4 (04:22→18:35)
[2019-11-25] MEDS: SODIUM CHLORIDE 0.9% IV SCH ×4 (04:22→18:35)
[2019-11-25 05:03] LABS: BASOPHILS # (AUTO) 0.1 10^3/uL (0.0-0.1); BASOPHILS % (AUTO) 0.6 %; EOSINOPHILS # (AUTO) 0.4 10^3/uL (0.0-0.7); EOSINOPHILS % (AUTO) 2.4 %; HGB - HEMOGLOBIN 13.2 g/dL (14.0-18.0); LYMPHOCYTES # (AUTO) 2.5 10^3/uL (1.5-3.5); MEAN CORPUSCULAR HEMOGLOBIN 34.7 pg (27.0-31.0); MEAN CORPUSCULAR HGB CONC 34.2 g/dL (32.0-36.0); MEAN CORPUSCULAR VOLUME 101.6 fL (80.0-94.0); MEAN PLATELET VOLUME 9.7 fL (7.4-11.4); MONOCYTES # (AUTO) 2.1 10^3/uL (0.0-1.0); NEUTROPHILS % (AUTO) 67.4 %; PLT - PLATELET COUNT 301 10^3/uL (130-450); RED CELL DISTRIBUTION WIDTH 13.2 % (12.0-15.0); WHITE BLOOD COUNT 16.4 x10^3/uL (4.8-10.8)
[2019-11-25 05:15] LABS: CALCIUM 8.7 mg/dL (8.5-10.3); CREATININE 0.7 mg/dL (0.6-1.2); MAGNESIUM 1.6 mg/dL (1.7-2.8); PHOSPHORUS 2.6 mg/dL (2.5-4.6)
[2019-11-25] MEDS: POTASSIUM CHLOR 10 MEQ/100 ML 10 MEQ/100 ML BAG IV SCH ×4 (06:38→10:24)
[2019-11-25] MEDS: PANTOPRAZOLE 40 MG VIAL IVP SCH (06:40)
--- NOTE | 2019-11-25 07:56 | PROVIDER PROGRESS NOTE ---
Subjective - Prog Note Date Prog Note Date: 11/25/19 - Subjective Subjective: Yesterday evening, he was alert and oriented to self, location, month, year. He knew he was in the hospital and why he was here. He was still quite lethargic. He was able to take full liquid diet without difficulty. He did have some abdominal pain after completing his meal. He was requesting to be discharged home. Overnight, he became physically agitated again and required Ativan IV. He remains on Precedex. Current Medications - Current Medications Current Medications: Active Medications Folic Acid () 1 mg PO DAILY [facility] Dexmedetomidine HCl 400 mcg/ (Sodium Chloride) 100 mls @ 19.88 mls/hr IV .Q5H2M [facility]; Protocol Last Admin: 11/25/19 07:50 Dose: 1.2 mcg/kg/hr, 23.85 mls/hr Doxycycline Hyclate 100 mg/ (Sodium Chloride) 100 mls @ 100 mls/hr IV BID [facility] Last Infusion: 11/24/19 21:28 Dose: Infused Ceftriaxone Sodium 1 gm/ (Sodium Chloride) 100 mls @ 200 mls/hr IV DAILY [facility] Last Infusion: 11/24/19 13:31 Dose: Infused Potassium Chloride (Potassium Chloride) 10 meq in 100 mls @ 100 mls/hr IV Q1H [facility]; Protocol Stop: 11/25/19 10:59 Last Admin: 11/25/19 07:55 Dose: 100 mls/hr Labetalol HCl (Trandate Inj) 10 mg IVP Q2HR PRN PRN Reason: for SBP >160 or DBP >110 Last Admin: 11/23/19 05:06 Dose: 10 mg Lorazepam (Ativan Inj (Vial)) 2 mg IVP Q2H PRN PRN Reason: Alcohol Withdrawal Last Admin: 11/25/19 04:23 Dose: 2 mg Morphine Sulfate (Morphine (Carpuject)) 2 mg IVP Q2HR PRN PRN Reason: Pain 8 to 10 Last Admin: 11/24/19 20:16 Dose: 2 mg Multivitamins (Theragran) 1 tab PO DAILYWM [facility] Nicotine (Nicoderm) 1 patch TOP DAILY [facility] Last Admin: 11/24/19 09:47 Dose: 1 patch Ondansetron HCl (Zofran Inj) 4 mg IVP Q4HR PRN PRN Reason: Nausea / Vomiting Last Admin: 11/24/19 17:27 Dose: 4 mg Pantoprazole Sodium (Protonix) 40 mg IVP QDAC [facility] Last Admin: 11/25/19 06:40 Dose: 40 mg Sodium Chloride (Normal Saline Flush 0.9%) 10 ml IVP PRN PRN PRN Reason: NEEDED PER PROVIDER ORDERS Last Admin: 11/24/19 21:22 Dose: 10 ml Sodium Chloride (Normal Saline Flush 0.9%) 10 ml IVP 0100,0900,1700 [facility] Last Admin: 11/25/19 02:53 Dose: 10 ml Thiamine HCl (Vitamin B-1) 100 mg PO DAILY [facility] Dicyclomine [Bentyl] 10 mg PO PRN PRN 11/19/19 Omeprazole 20 mg PO DAILY 11/19/19 Objective - Vital Signs/Intake & Output Vital Signs: Vital Signs Temp Pulse Resp BP Pulse Ox 11/25/19 07:00 73 18 163/96 H 94 11/25/19 06:00 37.0 C 73 14 149/100 H 93 11/25/19 05:00 37.6 C H 80 19 163/101 H 94 11/25/19 04:00 83 20 160/103 H 98 Intake & Output: Intake & Output 11/22/19 11/23/19 11/24/19 11/25/19 23:59 23:59 23:59 23:59 Intake Total 2217.980 2354.321 2431.605 244.068 Output Total 2680 3890 3345 1495 Balance -462.020 -1535.679 -913.395 -1250.932 - Objective General Appearance: positive: Lethargic (He remains on Precedex. He is able to open his eyes to command. Able to converse in short sentences at times.) Eyes Bilateral: positive: Normal inspection ENT: positive: ENT inspection nml Neck: positive: Nml inspection Respiratory: positive: No respiratory distress Cardiovascular: positive: Regular rate & rhythm, No murmur. negative: Tachycardia, Bradycardia Skin: positive: Warm, Dry. negative: Diaphoresis Extremities: positive: No pedal edema Neurologic/Psychiatric: positive: Disoriented to time (He knows it is 2020 but does not know the month.), Other (He is moving all 4 extremities.). negative: Oriented x3, Disoriented to person, Disoriented to place - Lab Results Fish Bones: 11/25/19 04:49 11/25/19 04:49 Other Labs: Lab Results x24hrs 11/25/19 11/25/19 11/25/19 Range/Units 05:56 04:49 04:49 WBC 16.4 H (4.8-10.8) x10^3/uL RBC 3.80 L (4.70-6.10) 10^6/uL Hgb 13.2 L (14.0-18.0) g/dL Hct 38.6 L (42.0-52.0) % MCV 101.6 H (80.0-94.0) fL MCH 34.7 H (27.0-31.0) pg MCHC 34.2 (32.0-36.0) g/dL RDW 13.2 (12.0-15.0) % Plt Count 301 (130-450) 10^3/uL MPV 9.7 (7.4-11.4) fL Neut # (Auto) 11.0 H (1.5-6.6) 10^3/uL Lymph # (Auto) 2.5 (1.5-3.5) 10^3/uL Bent # (Auto) 2.1 H (0.0-1.0) 10^3/uL Eos # (Auto) 0.4 (0.0-0.7) 10^3/uL Baso # (Auto) 0.1 (0.0-0.1) 10^3/uL Absolute Nucleated RBC 0.00 x10^3/uL Nucleated RBC % 0.0 /100WBC Sodium 135 (135-145) mmol/L Potassium 3.1 L (3.5-5.0) mmol/L Chloride 101 (101-111) mmol/L Carbon Dioxide 22 (21-32) mmol/L Anion Gap 12.0 (6-13) BUN 7 (6-20) mg/dL Creatinine 0.7 (0.6-1.2) mg/dL Estimated GFR (MDRD) 123 (>89) Glucose 114 H (70-100) mg/dL POC Whole Bld Glucose 114 H (70 - 100) mg/dL Calcium 8.7 (8.5-10.3) mg/dL Phosphorus 2.6 (2.5-4.6) mg/dL Magnesium 1.6 L (1.7-2.8) mg/dL 11/25/19 11/24/19 11/24/19 Range/Units 00:38 17:29 12:01 WBC (4.8-10.8) x10^3/uL RBC (4.70-6.10) 10^6/uL Hgb (14.0-18.0) g/dL Hct (42.0-52.0) % MCV (80.0-94.0) fL MCH (27.0-31.0) pg MCHC (32.0-36.0) g/dL RDW (12.0-15.0) % Plt Count (130-450) 10^3/uL MPV (7.4-11.4) fL Neut # (Auto) (1.5-6.6) 10^3/uL Lymph # (Auto) (1.5-3.5) 10^3/uL Bent # (Auto) (0.0-1.0) 10^3/uL Eos # (Auto) (0.0-0.7) 10^3/uL Baso # (Auto) (0.0-0.1) 10^3/uL Absolute Nucleated RBC x10^3/uL Nucleated RBC % /100WBC Sodium (135-145) mmol/L Potassium (3.5-5.0) mmol/L Chloride (101-111) mmol/L Carbon Dioxide (21-32) mmol/L Anion Gap (6-13) BUN (6-20) mg/dL Creatinine (0.6-1.2) mg/dL Estimated GFR (MDRD) (>89) Glucose (70-100) mg/dL POC Whole Bld Glucose 102 H 102 H 143 H (70 - 100) mg/dL Calcium (8.5-10.3) mg/dL Phosphorus (2.5-4.6) mg/dL Magnesium (1.7-2.8) mg/dL Assessment/Plan - Problem List (1) Alcohol withdrawal Impression: Yesterday evening showed significant improvement but once again overnight, he required Ativan IV for physical agitation. Overall he has shown improvement over the past few days. We will continue to wean his Precedex. We will discontinue his Ativan as part of his delirium sedation may be due to the benzodiazepines as he received a large amount during his hospitalization. If he is agitated then we will consider low-dose Haldol. Qualifiers: Complication of substance-induced condition: with delirium Qualified Code(s): F10.231 - Alcohol dependence with withdrawal delirium (2) Atypical pneumonia Impression: His chest x-ray shows bilateral opacities and given his fever, hypoxia, leukocytosis he was started on doxycycline and ceftriaxone IV. We are also checking him for COVID-19. He is no longer hypoxic but he continues to spike low-grade fevers and his white count is increased today. We will continue to monitor. (3) Fever Impression: He once again spiked a low-grade fever overnight and his white count is increased today. Chest x-ray performed yesterday showed bilateral opacities concerning for viral/atypical infection. A repeat CT of the abdomen and pelvis with IV contrast showed persistent peripancreatic edema but no organized fluid collection. The CT did also show bilateral patchy opacities. 1 out of 4 blood cultures on admission grew gram-positive bacilli likely contaminant. The other blood cultures not sent have been negative to date. Repeat blood cultures drawn prior to antibiotics have also been negative to date. His urine culture is also negative. As mentioned above, he has been started on doxycycline and ceftriaxone for pneumonia coverage. We did not use azithromycin given his QTC is prolonged. We also check him for COVID-19. Continue to trend his white count. (4) Leukocytosis Impression: White count continues to increase and he does have low-grade fevers. Plan as mentioned above. Qualifiers: Leukocytosis type: unspecified Qualified Code(s): D72.829 - Elevated white blood cell count, unspecified (5) Hypertension Impression: His blood pressure was elevated on admission which was likely secondary to his abdominal pain. Has remained elevated likely due to his alcohol withdrawal. He appears to be improving from alcohol withdrawal standpoint his blood pressure remains elevated. We will start him on amlodipine 5 mg daily and titrate as needed. (6) Alcoholic pancreatitis Impression: His pancreatitis is secondary to alcohol use. Repeat CT of the abdomen pelvis yesterday continues to show peripancreatic edema but no fluid collection. He was able to tolerate a full liquid diet without nausea vomiting but did have postprandial abdominal pain. We will continue liquid diet as tolerated. Qualifiers: Chronicity: acute (7) Gram-positive bacteremia Impression: Likely contaminant as only 1 out of 4 blood cultures grew positive for gram- positive bacilli. Repeat cultures prior antibiotics have been negative. (8) Transaminitis Impression: Secondary to his alcohol use. They have trended down. We are no longer trending his LFTs. (9) Hypoxia Impression: Resolved.
[2019-11-25] MEDS: LABETALOL 5 MG/1 ML 20 ML MDV IVP PRN ×6 (08:14→21:14)
[2019-11-25] MEDS: NICOTINE 14 MG PATCH TOP SCH (09:18)
[2019-11-25] MEDS: cefTRIAXone 1 GM in SODIUM CHLORIDE 0.9% MINIBAG 100 ML IV SCH (09:46)
[2019-11-25] MEDS: DOXYCYCLINE INJ 100 MG in SODIUM CHLORIDE 0.9% MINIBAG 100 ML IV SCH ×2 (10:08→20:27)
[2019-11-25] MEDS: FOLIC ACID 1 MG TABLET PO SCH (12:51)
[2019-11-25] MEDS: MULTIVITAMIN TABLET PO SCH (12:51)
[2019-11-25] MEDS: THIAMINE 100 MG TABLET PO SCH (12:51)
[2019-11-25] MEDS ORDERED: amLODIPine 5 MG TABLET PO SCH (16:48)
[2019-11-25] MEDS ORDERED: ENOXAPARIN 40 MG/0.4 ML SYRINGE SUBQ STA (17:27)
[2019-11-25] MEDS: HALOPERIDOL 5 MG/ML VIAL IVP PRN (22:07)
[2019-11-26] MEDS: SODIUM CHLORIDE FLUSH 0.9% 10 ML SYRINGE IVP SCH ×3 (02:11→17:25)
[2019-11-26] MEDS: ACETAMINOPHEN 325 MG TABLET PO PRN ×2 (02:52→13:47)
[2019-11-26] MEDS: DEXMEDETOMIDINE IV SCH ×4 (02:52→07:57)
[2019-11-26] MEDS: SODIUM CHLORIDE 0.9% IV SCH ×4 (02:52→07:57)
[2019-11-26] MEDS: HALOPERIDOL 5 MG/ML VIAL IVP PRN (04:08)
[2019-11-26 05:20] LABS: BASOPHILS % (AUTO) 0.8 %; EOSINOPHILS % (AUTO) 2.5 %; HGB - HEMOGLOBIN 13.3 g/dL (14.0-18.0); LYMPHOCYTES % (AUTO) 15.6 %; MEAN CORPUSCULAR HEMOGLOBIN 33.8 pg (27.0-31.0); MEAN CORPUSCULAR VOLUME 99.5 fL (80.0-94.0); MEAN PLATELET VOLUME 9.7 fL (7.4-11.4); MONOCYTES % (AUTO) 10.8 %; NEUTROPHILS % (AUTO) 68.5 %; PLT - PLATELET COUNT 394 10^3/uL (130-450); RED BLOOD COUNT 3.93 10^6/uL (4.70-6.10); RED CELL DISTRIBUTION WIDTH 13.1 % (12.0-15.0); WHITE BLOOD COUNT 15.7 x10^3/uL (4.8-10.8)
[2019-11-26 05:37] LABS: ABNORMAL LYMPHS % (MANUAL) 0 %; BAND NEUTROPHILS % (MANUAL) 0 %
[2019-11-26 05:59] LABS: CALCIUM 8.8 mg/dL (8.5-10.3); CREATININE 0.6 mg/dL (0.6-1.2); MAGNESIUM 1.4 mg/dL (1.7-2.8)
[2019-11-26] MEDS: PANTOPRAZOLE 40 MG VIAL IVP SCH (06:16)
[2019-11-26 06:32] LABS: EOSINOPHILS # (MANUAL) 0.3 10^3/uL (0-0.7); LYMPHOCYTES % (MANUAL) 19 %; MONOCYTES # (MANUAL) 0.8 10^3/uL (0.0-1.0)
[2019-11-26 06:33] LABS: DIFFERENTIAL COMMENT MANUAL DIFFERENTIAL; PLATELET ESTIMATE, MANUAL NORMAL (130-450,000) (NORMAL); PLATELET MORPHOLOGY NORMAL APPEARANCE (NORMAL); RBC MORPHOLOGY (MULTIPLE) NORMAL APPEARANCE (NORMAL)
[2019-11-26] MEDS: MAGNESIUM OXIDE 400 MG TABLET PO SCH ×2 (06:39→13:48)
[2019-11-26] MEDS: POTASSIUM CHLORIDE 20 MEQ TABLET PO SCH ×2 (06:39→11:53)
--- NOTE | 2019-11-26 07:25 | PROVIDER PROGRESS NOTE ---
Subjective - Prog Note Date Prog Note Date: 11/26/19 - Subjective Subjective: Required Haldol overnight for agitation. He remains on Precedex. Continues to spike daily fevers. This morning, he reports feeling much better. He knows he is at the hospital and the year is 2019. He can recall that he came in for abdominal pain and that he went through alcohol withdrawal during his hospitalization. He reports no acute complaints. He does have a cough but no chest pain or dyspnea. He reports no abdominal pain. Denies nausea and vomiting. Current Medications - Current Medications Current Medications: Active Medications Acetaminophen (Tylenol) 650 mg PO Q6HR PRN PRN Reason: Pain or Fever > 38C (100.4F) Last Admin: 11/26/19 02:52 Dose: 650 mg Enoxaparin Sodium (Lovenox) 40 mg SUBQ DAILY [facility] Folic Acid () 1 mg PO DAILY [facility] Last Admin: 11/25/19 12:51 Dose: 1 mg Haloperidol (Haldol Inj) 2.5 mg IVP Q6H PRN PRN Reason: Agitation Last Admin: 11/26/19 04:08 Dose: 2.5 mg Dexmedetomidine HCl 400 mcg/ (Sodium Chloride) 100 mls @ 19.88 mls/hr IV .Q5H2M [facility]; Protocol Last Admin: 11/26/19 07:57 Dose: Not Given Cefepime HCl 2 gm/ Sodium (Chloride) 100 mls @ 200 mls/hr IV Q12H [facility] Vancomycin HCl 2 gm/ Sodium (Chloride) 500 mls @ 250 mls/hr IV ONCE ONE Stop: 11/26/19 10:59 Labetalol HCl (Trandate Inj) 10 mg IVP Q2HR PRN PRN Reason: for SBP >160 or DBP >110 Last Admin: 11/25/19 21:14 Dose: 10 mg Magnesium Oxide (Mag Ox) 400 mg PO Q6H [facility]; Protocol Stop: 11/26/19 13:01 Last Admin: 11/26/19 06:39 Dose: 400 mg Multivitamins (Theragran) 1 tab PO DAILYWM [facility] Last Admin: 11/25/19 12:51 Dose: 1 tab Nicotine (Nicoderm) 1 patch TOP DAILY [facility] Last Admin: 11/25/19 09:18 Dose: 1 patch Ondansetron HCl (Zofran Inj) 4 mg IVP Q4HR PRN PRN Reason: Nausea / Vomiting Last Admin: 11/24/19 17:27 Dose: 4 mg Pantoprazole Sodium (Protonix) 40 mg IVP QDAC [facility] Last Admin: 11/26/19 06:16 Dose: 40 mg Potassium Chloride (K-Dur) 40 meq PO Q4H [facility]; Protocol Stop: 11/26/19 11:01 Last Admin: 11/26/19 06:39 Dose: 40 meq Sodium Chloride (Normal Saline Flush 0.9%) 10 ml IVP PRN PRN PRN Reason: NEEDED PER PROVIDER ORDERS Last Admin: 11/24/19 21:22 Dose: 10 ml Sodium Chloride (Normal Saline Flush 0.9%) 10 ml IVP 0100,0900,1700 [facility] Last Admin: 11/26/19 02:11 Dose: 10 ml Thiamine HCl (Vitamin B-1) 100 mg PO DAILY [facility] Last Admin: 11/25/19 12:51 Dose: 100 mg Vancomycin HCl (Vancomycin-Pharmacy To Dose) 1 each ONCE PRN PRN Reason: PER PHARMACY Dicyclomine [Bentyl] 10 mg PO PRN PRN 11/19/19 Omeprazole 20 mg PO DAILY 11/19/19 Objective - Vital Signs/Intake & Output Reviewed Vital Signs: Yes Vital Signs: Vital Signs Temp Pulse Resp BP Pulse Ox 11/26/19 07:00 37.1 C 89 17 92/63 99 11/26/19 06:00 37.7 C H 87 17 114/89 H 97 11/26/19 05:00 38.0 C H 89 17 118/91 H 96 11/26/19 04:00 38.3 C H 87 21 123/88 H 97 Intake & Output: Intake & Output 11/23/19 11/24/19 11/25/19 11/26/19 23:59 23:59 23:59 23:59 Intake Total 2354.321 2431.605 1361.496 434.125 Output Total 7150 1099 3715 325 Balance -1535.679 -913.395 -2353.504 109.125 - Objective General Appearance: positive: No acute distress, Alert Eyes Bilateral: positive: Normal inspection, Conjunctivae nml ENT: positive: ENT inspection nml Neck: positive: Nml inspection Respiratory: positive: No respiratory distress, Other (Diminished breath sounds.). negative: Wheezes, Rales Cardiovascular: positive: Regular rate & rhythm, No murmur. negative: Tachycardia, Bradycardia Abdomen: positive: Non-tender, Nml bowel sounds, No distention. negative: Tenderness, Guarding, Rebound Skin: positive: Warm, Dry, Skin rash (Rash consistent with psoriasis is present over his scalp and face.) Extremities: positive: Full ROM, No pedal edema. negative: Thierry's sign/cords Neurologic/Psychiatric: positive: Oriented x3, Other (No focal motor deficits.). negative: Disoriented to person, Disoriented to place, Disoriented to time - Lab Results Fish Bones: 11/26/19 04:54 11/26/19 04:54 Other Labs: Lab Results x24hrs 11/26/19 11/26/19 11/26/19 Range/Units 05:51 04:54 04:54 WBC 15.7 H (4.8-10.8) x10^3/uL RBC 3.93 L (4.70-6.10) 10^6/uL Hgb 13.3 L (14.0-18.0) g/dL Hct 39.1 L (42.0-52.0) % MCV 99.5 H (80.0-94.0) fL MCH 33.8 H (27.0-31.0) pg MCHC 34.0 (32.0-36.0) g/dL RDW 13.1 (12.0-15.0) % Plt Count 394 (130-450) 10^3/uL MPV 9.7 (7.4-11.4) fL Neut # (Auto) Not Reportable Lymph # (Auto) Not Reportable [place] # (Auto) Not Reportable Eos # (Auto) Not Reportable Baso # (Auto) Not Reportable Absolute Nucleated RBC Not Reportable Total Counted 100 Band Neuts % (Manual) 0 (0 - 10) % Abnorm Lymph % (Manual) 0 % Nucleated RBC % Not Reportable Neutrophils # (Manual) 11.6 H (1.5-6.6) 10^3/uL Lymphocytes # (Manual) 3.0 (1.5-3.5) 10^3/uL Monocytes # (Manual) 0.8 (0.0-1.0) 10^3/uL Eosinophils # (Manual) 0.3 (0-0.7) 10^3/uL Basophils # (Manual) 0.0 (0-0.1) 10^3/uL Differential Comment MANUAL DIFFERENTIAL WBC Morphology NORMAL APPEARANCE (NORMAL) Platelet Estimate NORMAL (130-450,000) (NORMAL) Platelet Morphology NORMAL APPEARANCE (NORMAL) RBC Morph Micro Appear NORMAL APPEARANCE (NORMAL) Sodium 136 (135-145) mmol/L Potassium 2.9 L (3.5-5.0) mmol/L Chloride 101 (101-111) mmol/L Carbon Dioxide 21 (21-32) mmol/L Anion Gap 14.0 H (6-13) BUN 5 L (6-20) mg/dL Creatinine 0.6 (0.6-1.2) mg/dL Estimated GFR (MDRD) 147 (>89) Glucose 106 H (70-100) mg/dL POC Whole Bld Glucose 101 H (70 - 100) mg/dL Calcium 8.8 (8.5-10.3) mg/dL Phosphorus 4.0 (2.5-4.6) mg/dL Magnesium 1.4 L (1.7-2.8) mg/dL 11/25/19 11/25/19 11/25/19 Range/Units 23:44 18:01 12:37 WBC (4.8-10.8) x10^3/uL RBC (4.70-6.10) 10^6/uL Hgb (14.0-18.0) g/dL Hct (42.0-52.0) % MCV (80.0-94.0) fL MCH (27.0-31.0) pg MCHC (32.0-36.0) g/dL RDW (12.0-15.0) % Plt Count (130-450) 10^3/uL MPV (7.4-11.4) fL Neut # (Auto) Lymph # (Auto) [place] # (Auto) Eos # (Auto) Baso # (Auto) Absolute Nucleated RBC Total Counted Band Neuts % (Manual) (0 - 10) % Abnorm Lymph % (Manual) % Nucleated RBC % Neutrophils # (Manual) (1.5-6.6) 10^3/uL Lymphocytes # (Manual) (1.5-3.5) 10^3/uL Monocytes # (Manual) (0.0-1.0) 10^3/uL Eosinophils # (Manual) (0-0.7) 10^3/uL Basophils # (Manual) (0-0.1) 10^3/uL Differential Comment WBC Morphology (NORMAL) Platelet Estimate (NORMAL) Platelet Morphology (NORMAL) RBC Morph Micro Appear (NORMAL) Sodium (135-145) mmol/L Potassium (3.5-5.0) mmol/L Chloride (101-111) mmol/L Carbon Dioxide (21-32) mmol/L Anion Gap (6-13) BUN (6-20) mg/dL Creatinine (0.6-1.2) mg/dL Estimated GFR (MDRD) (>89) Glucose (70-100) mg/dL POC Whole Bld Glucose 79 93 105 H (70 - 100) mg/dL Calcium (8.5-10.3) mg/dL Phosphorus (2.5-4.6) mg/dL Magnesium (1.7-2.8) mg/dL Assessment/Plan - Problem List (1) Fever Impression: Continues to spike daily fevers with temperature as high as 38.5 C. His white count today has improved. A chest x-ray did show concern for atypical infection and he was started on doxycycline and ceftriaxone IV. COVID-19 test has been ordered and is pending. A CT the abdomen pelvis with IV contrast showed peripancreatic edema but no organized fluid collection. The source of his fevers at this moment is not clear. We will await the COVID-19 test this could be a potential cause of his infection. We will broaden his antibiotics to vancomycin and cefepime given his persistent fevers. As blood cultures have been negative to date, we will not repeat them at this time. We will recheck a urinalysis. We will also check Dopplers of his lower extremities to evaluate for DVT. Of note, blood culture on admission grew diphtheroid gram-positive bacilli 3 days after admission. This is likely a contaminant. Microbiology has updated the results and it is now stated that there likely is no bacteria and no further work-up will be performed. Repeat blood cultures during this admission prior to antibiotics have also been negative to date. (2) Atypical pneumonia Impression: His chest x-ray is suggestive of atypical pneumonia. He had been on doxycycline and ceftriaxone. COVID-19 test has been ordered and is pending. Fortunately, he is not hypoxic but given his worsening fevers, will broaden his antibiotics to vancomycin and cefepime. (3) Alcohol withdrawal Impression: Has significantly improved. He is no longer requiring Ativan and is currently just on low-dose Precedex which will be weaned over the next few hours. We will consult social work to discuss rehab options for his alcohol use. I spoke with his mother yesterday on the phone over 20 minutes and she is concerned as the patient's also drinks alcohol on a daily basis. Qualifiers: Complication of substance-induced condition: with delirium Qualified Code(s): F10.231 - Alcohol dependence with withdrawal delirium (4) Leukocytosis Impression: His white count has improved today but remains elevated with a left shift. Given his fevers, concern is for infection. Plan as mentioned above for fever. Qualifiers: Leukocytosis type: unspecified Qualified Code(s): D72.829 - Elevated white blood cell count, unspecified (5) Hypertension Impression: He had been hypertensive and was started on amlodipine yesterday. This morning his blood pressure is stable in the 110s to 120 systolic. Suspect his blood pressure has been elevated due to his agitation from alcohol withdrawal. Given his improvement in his blood pressure, we will discontinue the amlodipine and m onitor. (6) Alcoholic pancreatitis Impression: This is secondary to alcohol use. Repeat CT from 2 days ago showed peripancreatic edema but no organized fluid collection. Her abdominal exam is benign. We will continue with a liquid diet and advance as tolerated. Qualifiers: Chronicity: acute (7) Hypokalemia Impression: We will continue to replace orally. (8) Transaminitis Impression: This was secondary to his alcohol use and has resolved.
[2019-11-26] MEDS ORDERED: SODIUM CHLORIDE 0.9% 500 ML ONE (08:32)
[2019-11-26] MEDS: CEFEPIME 2 GM in SODIUM CHLORIDE 0.9% MINIBAG 100 ML IV SCH ×2 (08:32→20:45)
[2019-11-26] MEDS: ENOXAPARIN 40 MG/0.4 ML SYRINGE SUBQ SCH (08:54)
[2019-11-26] MEDS: FOLIC ACID 1 MG TABLET PO SCH (08:55)
[2019-11-26] MEDS: NICOTINE 14 MG PATCH TOP SCH (08:56)
[2019-11-26] MEDS ORDERED: amLODIPine 5 MG TABLET PO SCH (09:00)
[2019-11-26] MEDS ORDERED: VANCOMYCIN INJ 2 GM in SODIUM CHLORIDE 0.9% 500 ML IV ONE (09:00)
[2019-11-26] MEDS: THIAMINE 100 MG TABLET PO SCH (09:15)
[2019-11-26] MEDS: MULTIVITAMIN TABLET PO SCH (09:15)
[2019-11-26 09:38] LABS: GLUCOSE, URINE (UA) NEGATIVE (NEGATIVE); KETONES,URINE (UA) >=80 mg/dL (NEGATIVE); LEUKOCYTE ESTERASE, URINE NEGATIVE (NEGATIVE); NITRITE,URINE NEGATIVE (NEGATIVE); OCCULT BLOOD,URINE NEGATIVE (NEGATIVE); PH,URINE 5.5 PH (5.0-7.5); PROTEIN,URINE TRACE mg/dL (NEGATIVE); UROBILINOGEN,URINE 2 E.U./dL (NORMAL)
[2019-11-26 09:45] LABS: CLARITY,URINE CLOUDY (CLEAR)
[2019-11-26 09:47] LABS: BILIRUBIN,URINE NEGATIVE (NEGATIVE); ICTOTEST,URINE NEGATIVE
[2019-11-26 09:51] LABS: BACTERIA,URINE Many /HPF (None Seen); RBC,URINE 0-5 /HPF (0-5); SQUAMOUS EPITHELIAL CELL,UR RARE Squamous (<= Few)
--- NOTE | 2019-11-26 09:54 | PHARMACY PROGRESS NOTE ---
- Therapy Status Therapy status: Awaiting steady state Basis for treatment: Empirical Treatment indication: EMPIRIC Trough goal: 15-20 Concurrent antibiotics: CEFEPIME 2G Q12H - JATINDER Risk Risk level for Acute Kidney Injury: Moderate Acute Kidney Injury risk factors: Admission to ICU - Monitoring and Recommendation Clinical response to treatment: I&O Previous 24 hours 11/24/19 11/25/19 11/26/19 23:59 23:59 23:59 Intake Total 2431.605 1361.496 542.085 Output Total 3345 3715 325 Balance -913.395 -2353.504 217.085 Lab Results 11/26/19 11/25/19 11/24/19 04:54 04:49 04:58 BUN 5 L 7 6 Creatinine 0.6 0.7 0.6 Estimated GFR (MDRD) 147 123 147 11/23/19 11/22/19 11/21/19 04:30 04:25 04:25 BUN 5 L 5 L 6 Creatinine 0.6 0.6 0.5 L Estimated GFR (MDRD) 147 147 181 11/20/19 11/19/19 11/19/19 04:27 05:10 00:15 BUN < 5 L 5 L 5 L Creatinine 0.5 L 0.6 0.7 Estimated GFR (MDRD) 181 147 123 Cultures 11/19/19 00:15 Blood - Left Arm Blood Culture - Preliminary 11/22/19 12:15 Blood Blood Culture - Preliminary NO GROWTH AFTER 2 DAYS 11/22/19 11:15 Blood Blood Culture - Preliminary NO GROWTH AFTER 2 DAYS 11/19/19 01:05 Blood - Right Arm Blood Culture - Final NO GROWTH AFTER 5 DAYS 11/20/19 10:11 Urine,Clean Catch Urine Culture - Final Monitoring plan: Daily serum creatinine (TROUGH SCHEDULED 11/26 @0800 (BEFORE 4TH DOSE))
[2019-11-26] MEDS: ONDANSETRON 4 MG/2 ML VIAL IVP PRN (13:50)
--- NOTE | 2019-11-26 14:25 | Ultrasound Report ---
Reason: Leg swelling, pain. Eval for DVT. Procedure Date: 11/26/2019 Accession Number: [id number] / [id number] Procedure: US - Duplex Ext Veins Bilateral CPT Code: Final Report FULL RESULT: EXAM: BILATERAL LOWER EXTREMITY VENOUS ULTRASOUND EXAM DATE: 11/26/2019 10:41 AM. CLINICAL HISTORY: Leg swelling, pain. Eval for DVT. COMPARISON: ABDOMEN/PELVIS W 11/24/2019 8:17 AM. TECHNIQUE: Real-time sonographic vascular imaging was performed by the spud grader through the lower extremities utilizing both color-flow and Doppler spectral analysis. Multiple compliance representative dealer static images were saved for review. FINDINGS: Right: Common Femoral Vein (CFV): Normal. CFV-GSV Junction: Normal. Profunda Femoral Vein (PFV): Normal. Femoral Vein (FV) Prox: Normal. Femoral Vein (FV) Mid: Normal. Femoral Vein (FV) Dist: Normal. Popliteal Vein: Normal. Posterior Tibial Veins: Normal. Peroneal Veins: Normal. Left: Common Femoral Vein (CFV): Normal. CFV-GSV Junction: Normal. Profunda Femoral Vein (PFV): Normal. Femoral Vein (FV) Prox: Normal. Femoral Vein (FV) Mid: Normal. Femoral Vein (FV) Dist: Normal. Popliteal Vein: Normal. Posterior Tibial Veins: Normal. Peroneal Veins: Normal. Other: None. IMPRESSION: No evidence for deep venous thrombosis bilaterally. RADIA
[2019-11-26] MEDS ORDERED: VANCOMYCIN 1 GM VIAL ONE (17:14)
[2019-11-26] MEDS: VANCOMYCIN INJ 1 GM, VANCOMYCIN INJ 500 MG in SODIUM CHLORIDE 0.9% 500 ML IV SCH (17:26)
[2019-11-27] MEDS: ACETAMINOPHEN 325 MG TABLET PO PRN ×3 (00:07→19:25)
[2019-11-27] MEDS: VANCOMYCIN INJ 1 GM, VANCOMYCIN INJ 500 MG in SODIUM CHLORIDE 0.9% 500 ML IV SCH (00:54)
[2019-11-27] MEDS: SODIUM CHLORIDE FLUSH 0.9% 10 ML SYRINGE IVP SCH ×4 (04:29→22:27)
[2019-11-27 05:44] LABS: BASOPHILS # (AUTO) 0.1 10^3/uL (0.0-0.1); BASOPHILS % (AUTO) 0.8 %; EOSINOPHILS # (AUTO) 0.3 10^3/uL (0.0-0.7); EOSINOPHILS % (AUTO) 2.4 %; HGB - HEMOGLOBIN 12.2 g/dL (14.0-18.0); LYMPHOCYTES # (AUTO) 2.9 10^3/uL (1.5-3.5); LYMPHOCYTES % (AUTO) 22.2 %; MEAN CORPUSCULAR HEMOGLOBIN 34.2 pg (27.0-31.0); MEAN CORPUSCULAR HGB CONC 33.6 g/dL (32.0-36.0); MEAN CORPUSCULAR VOLUME 101.7 fL (80.0-94.0); MEAN PLATELET VOLUME 9.7 fL (7.4-11.4); MONOCYTES # (AUTO) 1.6 10^3/uL (0.0-1.0); MONOCYTES % (AUTO) 11.9 %; NEUTROPHILS # (AUTO) 7.9 10^3/uL (1.5-6.6); NEUTROPHILS % (AUTO) 60.1 %; PLT - PLATELET COUNT 458 10^3/uL (130-450); RED BLOOD COUNT 3.57 10^6/uL (4.70-6.10); RED CELL DISTRIBUTION WIDTH 13.5 % (12.0-15.0); WHITE BLOOD COUNT 13.2 x10^3/uL (4.8-10.8)
[2019-11-27 05:59] LABS: BUN - BLOOD UREA NITROGEN < 5 mg/dL (6-20); CALCIUM 8.5 mg/dL (8.5-10.3); CARBON DIOXIDE - CO2 19 mmol/L (21-32); CHLORIDE 107 mmol/L (101-111); CREATININE 0.6 mg/dL (0.6-1.2); GLUCOSE 93 mg/dL (70-100); MAGNESIUM 1.6 mg/dL (1.7-2.8); SODIUM 137 mmol/L (135-145)
[2019-11-27 06:09] LABS: PLATELET ESTIMATE, MANUAL INCREASED (>450,000) (NORMAL); PLATELET MORPHOLOGY NORMAL APPEARANCE (NORMAL); RBC MORPHOLOGY (MULTIPLE) NORMAL APPEARANCE (NORMAL)
[2019-11-27] MEDS: PANTOPRAZOLE 40 MG VIAL IVP SCH (06:57)
[2019-11-27] MEDS: POTASSIUM CHLORIDE 20 MEQ TABLET PO SCH ×2 (07:00→11:16)
[2019-11-27] MEDS: MAGNESIUM OXIDE 400 MG TABLET PO SCH ×2 (07:00→13:18)
--- NOTE | 2019-11-27 08:13 | PROVIDER PROGRESS NOTE ---
Assessment/Plan - Problem List (1) Fever Assessment/Plan: No fever spike overnight, only a low-grade fever for the last 24 hours. His lasty fever spike was the previous night. Continue with empiric antibx which were broadened yesterday. Await blood cx. He makes no sputum. COVID result returned neg, will stop isolation orders. (2) Atypical pneumonia Assessment/Plan: Abnormality on CXR seen. He has a cough but is not hypoxic. Continue empiric antibx plus probiotic. COVID result was neg (done 11/24/19), and the 11/26/19 result is also, thus isolation orders can be DCd. (3) Diarrhea Assessment/Plan: He gets diarrhea after he eats (gastro-colic reflex, probably). C. diff was checked and is neg. Will add Florastor. Will add Imodium prn. Continue with soft low-fiber diet, discussed with RD. If those measures don't help, he may have pancreatic insufficiency and need pancreatic enzymes. (4) Hypokalemia Assessment/Plan: Related to inaqdequate intake and losses in diarrhea. Replace and follow daily labs (5) Hypomagnesemia Assessment/Plan: Related to inadequate intake and losses in diarrhea. Replace and follow daily labs (6) Alcohol use disorder Assessment/Plan: SW met with the patient for resources regarding detox or counseling and regarding home situation. Dr Duckworth learned from a phone call with the mother, that the patient's also drinks alcohol. The patient asked his nurse today for information about withdrawal that he wants to communicate himself to his . He admits to me today that he wants to quit alcohol abuse now, because he despises the taste of alcohol and also does not want to go through the pain of pancreatitis again. The Ativan and Precedex are off. Will start oral Librium for an additional few days since he still has a tremor. (7) Psoriasis Assessment/Plan: The patient requested Eucerin cream for this today, which will be ordered. (8) Transaminitis Assessment/Plan: Was secondary to alcohol abuse and has resolved. (9) Alcoholic pancreatitis Qualifiers: Chronicity: acute Assessment/Plan: Resolved. This was his presenting problem. Lipase elevation has resolved. Triglyceride level was normal. CT abdomen has been repeated and no complication seen. Continue soft low fiober diet. Pain meds prn. (10) Alcohol withdrawal Qualifiers: Complication of substance-induced condition: with delirium Qualified Code(s): F10.231 - Alcohol dependence with withdrawal delirium Assessment/Plan: He needed several days of iv Ativan and Precedex drip, both weaned to off. Continue Folate and Thiamine replacement. - Current Meds Current Meds: Current Medications Generic Name Dose Route Start Last Admin Trade Name Freq PRN Reason Stop Dose Admin Acetaminophen 650 mg 11/26/19 02:30 11/27/19 00:07 Tylenol PO 650 mg Q6HR PRN Administration Pain or Fever > 38C (100.4F) Enoxaparin Sodium 40 mg 11/26/19 09:00 11/26/19 08:54 Lovenox SUBQ 40 mg DAILY BENNIE Administration Cefepime HCl 2 gm/ Sodium 100 mls @ 200 mls/hr 11/26/19 08:00 11/26/19 21:15 Chloride IV Infused Q12H BENNIE Infusion Vancomycin HCl 1 gm/ 500 mls @ 167 mls/hr 11/26/19 17:00 11/27/19 04:30 Vancomycin HCl 500 mg/ Sodium IV Infused Chloride Q8H BENNIE Infusion Magnesium Oxide 400 mg 11/27/19 07:00 11/27/19 07:00 Mag Ox PO 11/27/19 13:01 400 mg Q6H BENNIE Administration Protocol Nicotine 1 patch 11/20/19 17:00 11/26/19 08:56 Nicoderm TOP 1 patch DAILY BENNIE Administration Ondansetron HCl 4 mg 11/19/19 02:25 11/26/19 13:50 Zofran Inj IVP 4 mg Q4HR PRN Administration Nausea / Vomiting Pantoprazole Sodium 40 mg 11/19/19 07:00 11/27/19 06:57 Protonix IVP 40 mg QDAC BENNIE Administration Potassium Chloride 40 meq 11/27/19 07:00 11/27/19 07:00 K-Dur PO 11/27/19 11:01 40 meq Q4H BENNIE Administration Protocol Sodium Chloride 10 ml 11/19/19 02:25 11/24/19 21:22 Normal Saline Flush 0.9% IVP 10 ml PRN PRN Administration NEEDED PER PROVIDER ORDERS Sodium Chloride 10 ml 11/19/19 09:00 11/27/19 04:29 Normal Saline Flush 0.9% IVP Not Given 0100,0900,1700 BENNIE Thiamine HCl 100 mg 11/25/19 09:00 11/26/19 09:15 Vitamin B-1 PO 100 mg DAILY BENNIE Administration - Lab Result Fish Bone Diagrams: 11/27/19 05:05 11/27/19 05:05 Subjective - Subjective Patient Reports: Other (Develoiped a bad "break out" of psoriasis on his face after washing face and shaving today.) Nursing Reports: Other (tolerating soft diet) Objective Vital Signs: Vital Signs - 24 hr 11/26/19 11/26/19 11/26/19 09:00 10:00 11:00 Temperature 37.2 C 37.3 C Heart Rate [ 94 95 96 Monitoring electrodes] Respiratory 16 17 16 Rate Blood Pressure [Left Brachial artery] Blood Pressure 128/78 146/95 H 127/89 H [Right Brachial artery] O2 Saturation 100 100 100 11/26/19 11/26/19 11/26/19 12:00 13:00 14:00 Temperature 37.5 C 37.5 C Heart Rate [ 95 102 H 104 H Monitoring electrodes] Respiratory 17 18 16 Rate Blood Pressure [Left Brachial artery] Blood Pressure 141/90 H 133/79 H 129/86 H [Right Brachial artery] O2 Saturation 100 100 97 11/26/19 11/26/19 11/26/19 15:00 16:00 17:00 Temperature 37.4 C 37.5 C 37.6 C H Heart Rate [ 101 H 96 102 H Monitoring electrodes] Respiratory 16 16 16 Rate Blood Pressure 125/83 H 132/91 H 141/90 H [Left Brachial artery] Blood Pressure [Right Brachial artery] O2 Saturation 97 98 98 11/26/19 11/26/19 11/26/19 18:00 18:44 20:00 Temperature 37.7 C H 37.7 C H 37.6 C H Heart Rate [ 99 98 110 H Monitoring electrodes] Respiratory 17 15 21 Rate Blood Pressure 128/67 138/95 H 149/97 H [Left Brachial artery] Blood Pressure [Right Brachial artery] O2 Saturation 99 98 99 11/26/19 11/26/19 11/26/19 21:00 22:00 22:58 Temperature 37.7 C H 37.6 C H 37.5 C Heart Rate [ 111 H 118 H 115 H Monitoring electrodes] Respiratory 22 22 19 Rate Blood Pressure 140/98 H 123/93 H 140/90 H [Left Brachial artery] Blood Pressure [Right Brachial artery] O2 Saturation 98 99 99 11/27/19 11/27/19 11/27/19 00:00 01:00 02:00 Temperature 37.2 C 37.3 C Heart Rate [ 112 H 112 H 107 H Monitoring electrodes] Respiratory 23 21 20 Rate Blood Pressure 126/76 119/72 124/78 [Left Brachial artery] Blood Pressure [Right Brachial artery] O2 Saturation 99 99 99 11/27/19 11/27/19 11/27/19 03:00 04:00 05:00 Temperature 37.5 C 37.4 C Heart Rate [ 98 97 97 Monitoring electrodes] Respiratory 15 14 17 Rate Blood Pressure 135/89 H 124/84 H 132/76 H [Left Brachial artery] Blood Pressure [Right Brachial artery] O2 Saturation 98 98 99 11/27/19 11/27/19 11/27/19 06:00 07:00 07:45 Temperature 37 C 37.2 C Heart Rate [ 88 98 97 Monitoring electrodes] Respiratory 16 22 19 Rate Blood Pressure 146/86 H 123/89 H 129/88 H [Left Brachial artery] Blood Pressure [Right Brachial artery] O2 Saturation 98 98 Oxygen O2 Source Room air I&O (Last 24 Hrs): Intake and Output Totals x24h 11/25/19 11/26/19 11/27/19 23:59 23:59 23:59 Intake Total 1742.383 5734.085 1050 Output Total 3715 525 2 Balance -2353.504 0159.057 0043 General: Alert, Oriented x3 HEENT: Mucous membr. moist/pink, Other (Many large, scaly macular red areas of face and neck) Neck: Supple Neuro: Alert, Other (Fine intentional tremor of chin and lower lip) Cardiovascular: Regular rate Respiratory: No respiratory distress, Other (R basal crackles) Abdomen: Soft Extremities: No clubbing, No edema - Results Results: Laboratory Results WBC 13.2 x10^3/uL (4.8-10.8) H 11/27/19 05:05 RBC 3.57 10^6/uL (4.70-6.10) L 11/27/19 05:05 Hgb 12.2 g/dL (14.0-18.0) L 11/27/19 05:05 Hct 36.3 % (42.0-52.0) L 11/27/19 05:05 MCV 101.7 fL (80.0-94.0) H 11/27/19 05:05 MCH 34.2 pg (27.0-31.0) H 11/27/19 05:05 MCHC 33.6 g/dL (32.0-36.0) 11/27/19 05:05 RDW 13.5 % (12.0-15.0) 11/27/19 05:05 Plt Count 458 10^3/uL (130-450) H 11/27/19 05:05 MPV 9.7 fL (7.4-11.4) 11/27/19 05:05 Neut # (Auto) 7.9 10^3/uL (1.5-6.6) H 11/27/19 05:05 Lymph # (Auto) 2.9 10^3/uL (1.5-3.5) 11/27/19 05:05 Webb # (Auto) 1.6 10^3/uL (0.0-1.0) H 11/27/19 05:05 Eos # (Auto) 0.3 10^3/uL (0.0-0.7) 11/27/19 05:05 Baso # (Auto) 0.1 10^3/uL (0.0-0.1) 11/27/19 05:05 Absolute Nucleated RBC 0.00 x10^3/uL 11/27/19 05:05 Total Counted 100 11/26/19 04:54 Band Neuts % (Manual) 0 % (0-10) 11/26/19 04:54 Abnorm Lymph % (Manual) 0 % 11/26/19 04:54 Nucleated RBC % 0.0 /100WBC 11/27/19 05:05 Neutrophils # (Manual) 11.6 10^3/uL (1.5-6.6) H 11/26/19 04:54 Lymphocytes # (Manual) 3.0 10^3/uL (1.5-3.5) 11/26/19 04:54 Monocytes # (Manual) 0.8 10^3/uL (0.0-1.0) 11/26/19 04:54 Eosinophils # (Manual) 0.3 10^3/uL (0-0.7) 11/26/19 04:54 Basophils # (Manual) 0.0 10^3/uL (0-0.1) 11/26/19 04:54 Differential Comment MANUAL DIFFERENTIAL 11/26/19 04:54 Manual Slide Review Indicated 11/27/19 05:05 WBC Morphology NORMAL APPEARANCE (NORMAL) 11/26/19 04:54 Platelet Estimate INCREASED (>450,000) (NORMAL) 11/27/19 05:05 Platelet Morphology NORMAL APPEARANCE (NORMAL) 11/27/19 05:05 RBC Morph Micro Appear NORMAL APPEARANCE (NORMAL) 11/27/19 05:05 PT 13.6 secs (9.9-12.6) H 11/19/19 00:15 INR 1.2 (0.8-1.2) 11/19/19 00:15 APTT 28.1 secs (24.9-33.3) 11/19/19 00:15 Sodium 137 mmol/L (135-145) 11/27/19 05:05 Potassium 2.9 mmol/L (3.5-5.0) L 11/27/19 05:05 Chloride 107 mmol/L (101-111) 11/27/19 05:05 Carbon Dioxide 19 mmol/L (21-32) L 11/27/19 05:05 Anion Gap 11.0 (6-13) 11/27/19 05:05 BUN < 5 mg/dL (6-20) L 11/27/19 05:05 Creatinine 0.6 mg/dL (0.6-1.2) 11/27/19 05:05 Estimated GFR (MDRD) 147 (>89) 11/27/19 05:05 Glucose 93 mg/dL (70-100) 11/27/19 05:05 POC Whole Bld Glucose 91 mg/dL (70 - 100) 11/27/19 07:48 Lactic Acid 1.4 mmol/L (0.5-2.2) 11/19/19 05:11 Calcium 8.5 mg/dL (8.5-10.3) 11/27/19 05:05 Phosphorus 4.0 mg/dL (2.5-4.6) 11/27/19 05:05 Magnesium 1.6 mg/dL (1.7-2.8) L 11/27/19 05:05 Total Bilirubin 1.4 mg/dL (0.2-1.0) H 11/24/19 04:58 Direct Bilirubin 0.6 mg/dL (0.1-0.5) H 11/24/19 04:58 AST 39 IU/L (10-42) 11/24/19 04:58 ALT 32 IU/L (10-60) 11/24/19 04:58 Alkaline Phosphatase 96 IU/L (42-121) 11/24/19 04:58 Total Creatine Kinase 90 IU/L (22-269) 11/19/19 00:15 Troponin I High Sens 5.1 ng/L (2.3-19.7) 11/19/19 00:15 Total Protein 6.2 g/dL (6.7-8.2) L 11/24/19 04:58 Albumin 2.7 g/dL (3.2-5.5) L 11/24/19 04:58 Globulin 3.5 g/dL (2.1-4.2) 11/24/19 04:58 Albumin/Globulin Ratio 0.8 (1.0-2.2) L 11/23/19 04:30 Triglycerides 102 mg/dL (-149) 11/19/19 05:11 Cholesterol 164 mg/dL (-199) 11/19/19 05:11 LDL Cholesterol, Calc 105 mg/dL (-129) 11/19/19 05:11 VLDL Cholesterol 20 mg/dL 11/19/19 05:11 HDL Cholesterol 39 mg/dL (60-) L 11/19/19 05:11 LDL/HDL Ratio 2.7 (<3.6) 11/19/19 05:11 Cholesterol/HDL Ratio 4.2 (<5.0) 11/19/19 05:11 Lipase 64 U/L (22-51) H 11/23/19 04:30 Urine Color YELLOW 11/26/19 09:26 Urine Clarity CLOUDY (CLEAR) 11/26/19 09:26 Urine pH 5.5 PH (5.0-7.5) 11/26/19 09:26 Ur Specific [place] >=1.030 (1.002-1.030) H 11/26/19 09:26 Urine Protein TRACE mg/dL (NEGATIVE) 11/26/19 09:26 Urine Glucose (UA) NEGATIVE mg/dL (NEGATIVE) 11/26/19 09:26 Urine Ketones >=80 mg/dL (NEGATIVE) H 11/26/19 09:26 Urine Occult Blood NEGATIVE (NEGATIVE) 11/26/19 09:26 Urine Nitrite NEGATIVE (NEGATIVE) 11/26/19 09:26 Urine Bilirubin NEGATIVE (NEGATIVE) 11/26/19 09:26 Urine Urobilinogen 2 E.U./dL (NORMAL) H 11/26/19 09:26 Ur Leukocyte Esterase NEGATIVE (NEGATIVE) 11/26/19 09:26 Urine RBC 0-5 /HPF (0-5) 11/26/19 09:26 Urine WBC 0-3 /HPF (0-3) 11/26/19 09:26 Ur Squamous Epith Cells RARE Squamous (<= Few) 11/26/19 09:26 Urine Bacteria Many /HPF (None Seen) H 11/26/19 09:26 Urine Culture Comments INDICATED 11/26/19 09:26 Nasal Screen MRSA (PCR) NEGATIVE (NEGATIVE) 11/20/19 01:48 Stl C. diff Tox B Gene NEGATIVE (NEGATIVE) 11/26/19 19:35 Salicylates < 6.0 mg/dL 11/19/19 00:15 Urine Opiates Screen POSITIVE (NEGATIVE) H 11/19/19 10:20 Ur Oxycodone Screen NEGATIVE (NEGATIVE) 11/19/19 10:20 Urine Methadone Screen NEGATIVE (NEGATIVE) 11/19/19 10:20 Ur Propoxyphene Screen NEGATIVE (NEGATIVE) 11/19/19 10:20 Acetaminophen 11 ug/mL (10-30) 11/19/19 00:15 Ur Barbiturates Screen NEGATIVE (NEGATIVE) 11/19/19 10:20 Ur Tricyclics Screen NEGATIVE (NEGATIVE) 11/19/19 10:20 Ur Phencyclidine Scrn NEGATIVE (NEGATIVE) 11/19/19 10:20 Ur Amphetamine Screen NEGATIVE (NEGATIVE) 11/19/19 10:20 U Methamphetamines Scrn NEGATIVE (NEGATIVE) 11/19/19 10:20 U Benzodiazepines Scrn POSITIVE (NEGATIVE) H 11/19/19 10:20 Urine Cocaine Screen NEGATIVE (NEGATIVE) 11/19/19 10:20 U Cannabinoids Screen NEGATIVE (NEGATIVE) 11/19/19 10:20 Ethyl Alcohol 39.6 mg/dL 11/19/19 00:15 Coronavirus (PCR) NEGATIVE 11/24/19 11:20
[2019-11-27] MEDS: CEFEPIME 2 GM in SODIUM CHLORIDE 0.9% MINIBAG 100 ML IV SCH ×2 (08:28→20:05)
[2019-11-27 08:29] LABS: VANCOMYCIN,TROUGH 21.3 ug/mL (10.0-20.0)
[2019-11-27] MEDS: THIAMINE 100 MG TABLET PO SCH (08:39)
[2019-11-27] MEDS: PRENATAL VITAMIN TABLET PO SCH (08:40)
[2019-11-27] MEDS: LOPERAMIDE 2 MG CAPSULE PO PRN ×2 (08:52→19:25)
[2019-11-27] MEDS: NICOTINE 14 MG PATCH TOP SCH (08:53)
[2019-11-27] MEDS: ENOXAPARIN 40 MG/0.4 ML SYRINGE SUBQ SCH (08:53)
--- NOTE | 2019-11-27 09:28 | PHARMACY PROGRESS NOTE ---
- Therapy Status Vancomycin regimen day #: 2 Therapy status: Trough supratherapeutic Basis for treatment: Empirical Trough goal: 15-20 Concurrent antibiotics: Cefepime - JATINDER Risk Risk level for Acute Kidney Injury: Moderate Acute Kidney Injury risk factors: Admission to ICU - Monitoring and Recommendation Clinical response to treatment: I&O Previous 24 hours 11/25/19 11/26/19 11/27/19 23:59 23:59 23:59 Intake Total 7912.009 3189.085 1150 Output Total 3715 525 2 Balance -2353.504 4549.435 2753 Lab Results 11/27/19 11/26/19 11/25/19 05:05 04:54 04:49 BUN < 5 L 5 L 7 Creatinine 0.6 0.6 0.7 Estimated GFR (MDRD) 147 147 123 11/24/19 11/23/19 11/22/19 04:58 04:30 04:25 BUN 6 5 L 5 L Creatinine 0.6 0.6 0.6 Estimated GFR (MDRD) 147 147 147 11/21/19 11/20/19 11/19/19 04:25 04:27 05:10 BUN 6 < 5 L 5 L Creatinine 0.5 L 0.5 L 0.6 Estimated GFR (MDRD) 181 181 147 11/19/19 00:15 BUN 5 L Creatinine 0.7 Estimated GFR (MDRD) 123 Vancomycin Monitoring 11/27/19 08:10 Vancomycin Trough 21.3 H Cultures 11/19/19 00:15 Blood - Left Arm Blood Culture - Preliminary 11/22/19 12:15 Blood Blood Culture - Preliminary NO GROWTH AFTER 2 DAYS 11/22/19 11:15 Blood Blood Culture - Preliminary NO GROWTH AFTER 2 DAYS 11/19/19 01:05 Blood - Right Arm Blood Culture - Final NO GROWTH AFTER 5 DAYS 11/20/19 10:11 Urine,Clean Catch Urine Culture - Final Monitoring plan: Daily serum creatinine (TROUGH SCHEDULED 11/26 @0800 (BEFORE 4TH DOSE)) Next trough due (date/time): 11/28/2019 at 1730 Areas for additional monitoring: IV to PO when appropriate, Therapy de- escalation based on culture results Pharmacy recommendation: Decrease dose
[2019-11-27] MEDS: VANCOMYCIN INJ 1 GM in SODIUM CHLORIDE 0.9% 250 ML IV SCH ×2 (10:14→17:37)
[2019-11-27] MEDS: SODIUM CHLORIDE FLUSH 0.9% 10 ML SYRINGE IVP PRN (11:48)
[2019-11-27] MEDS ORDERED: chlordiazePOXIDE 5 MG CAPSULE PO PRN (16:04)
[2019-11-27] MEDS: EMOLLIENT CREAM 57 GM TUBE TOP SCH ×2 (16:33→22:27)
[2019-11-27] MEDS: SACCHAROMYCES BOULARDII 250 MG CAPSULE PO SCH (16:37)
[2019-11-27] MEDS: chlordiazePOXIDE 5 MG CAPSULE PO SCH (16:37)
[2019-11-27] MEDS ORDERED: SACCHAROMYCES BOULARDII 250 MG CAPSULE PO SCH (17:00)
[2019-11-27] MEDS: DICYCLOMINE 10 MG CAPSULE PO PRN (19:25)
[2019-11-27] MEDS: ONDANSETRON 4 MG/2 ML VIAL IVP PRN (22:26)
[2019-11-28] MEDS: LOPERAMIDE 2 MG CAPSULE PO PRN ×2 (02:30→08:45)
[2019-11-28] MEDS: ACETAMINOPHEN 325 MG TABLET PO PRN ×2 (02:30→08:45)
[2019-11-28] MEDS: VANCOMYCIN INJ 1 GM in SODIUM CHLORIDE 0.9% 250 ML IV SCH ×2 (02:31→09:49)
[2019-11-28 05:25] LABS: BASOPHILS # (AUTO) 0.1 10^3/uL (0.0-0.1); BASOPHILS % (AUTO) 0.8 %; EOSINOPHILS # (AUTO) 0.5 10^3/uL (0.0-0.7); EOSINOPHILS % (AUTO) 3.7 %; HGB - HEMOGLOBIN 12.4 g/dL (14.0-18.0); LYMPHOCYTES # (AUTO) 2.9 10^3/uL (1.5-3.5); LYMPHOCYTES % (AUTO) 22.5 %; MEAN CORPUSCULAR HEMOGLOBIN 34.9 pg (27.0-31.0); MEAN CORPUSCULAR HGB CONC 34.2 g/dL (32.0-36.0); MEAN CORPUSCULAR VOLUME 102.3 fL (80.0-94.0); MEAN PLATELET VOLUME 9.7 fL (7.4-11.4); MONOCYTES # (AUTO) 1.5 10^3/uL (0.0-1.0); MONOCYTES % (AUTO) 11.2 %; NEUTROPHILS # (AUTO) 7.7 10^3/uL (1.5-6.6); NEUTROPHILS % (AUTO) 59.5 %; PLT - PLATELET COUNT 540 10^3/uL (130-450); RED BLOOD COUNT 3.55 10^6/uL (4.70-6.10); RED CELL DISTRIBUTION WIDTH 13.3 % (12.0-15.0)
[2019-11-28 05:45] LABS: BUN - BLOOD UREA NITROGEN < 5 mg/dL (6-20); CALCIUM 8.9 mg/dL (8.5-10.3); CARBON DIOXIDE - CO2 24 mmol/L (21-32); CHLORIDE 106 mmol/L (101-111); CREATININE 0.6 mg/dL (0.6-1.2); GLUCOSE 115 mg/dL (70-100); MAGNESIUM 1.6 mg/dL (1.7-2.8); PHOSPHORUS 3.5 mg/dL (2.5-4.6); SODIUM 139 mmol/L (135-145)
[2019-11-28] MEDS: MAGNESIUM OXIDE 400 MG TABLET PO SCH ×2 (06:56→13:36)
[2019-11-28] MEDS ORDERED: PANTOPRAZOLE 40 MG TABLET PO SCH (07:00)
[2019-11-28] MEDS ORDERED: SODIUM CHLORIDE 0.9% 500 ML IV PRN (08:00)
[2019-11-28] MEDS: CEFEPIME 2 GM in SODIUM CHLORIDE 0.9% MINIBAG 100 ML IV SCH (08:09)
[2019-11-28] MEDS: POTASSIUM CHLOR 10 MEQ/100 ML 10 MEQ/100 ML BAG IV SCH ×4 (08:21→11:43)
[2019-11-28] MEDS: NICOTINE 14 MG PATCH TOP SCH (08:42)
[2019-11-28] MEDS: SACCHAROMYCES BOULARDII 250 MG CAPSULE PO SCH (08:44)
[2019-11-28] MEDS: DICYCLOMINE 10 MG CAPSULE PO PRN (08:44)
[2019-11-28] MEDS: THIAMINE 100 MG TABLET PO SCH (08:46)
[2019-11-28] MEDS: chlordiazePOXIDE 5 MG CAPSULE PO SCH (08:48)
[2019-11-28] MEDS: EMOLLIENT CREAM 57 GM TUBE TOP SCH (08:50)
[2019-11-28] MEDS: ENOXAPARIN 40 MG/0.4 ML SYRINGE SUBQ SCH (08:50)
[2019-11-28] MEDS: PRENATAL VITAMIN TABLET PO SCH (08:51)
--- NOTE | 2019-11-28 08:51 | XRAY Report ---
Reason: F/U infiltrate Procedure Date: 11/28/2019 Accession Number: [id number] / [id number] Procedure: XR - Chest 1 View X-Ray CPT Code: 03075 Final Report FULL RESULT: EXAM: CHEST RADIOGRAPHY EXAM DATE: 11/28/2019 08:16 AM. CLINICAL HISTORY: F/U infiltrate. COMPARISON: CHEST 1 VIEW 11/24/2019 10:12 AM CHEST 1 VIEW 11/21/2019 8:01 AM CHEST 1 VIEW 11/19/2019 12:13 AM ABDOMEN/PELVIS W 11/24/2019 8:17 AM. TECHNIQUE: 1 view. FINDINGS: Lungs/Pleura: Significant improvement in bilateral airspace opacities. Lung volumes are improved. No pneumothorax. Mediastinum: Heart size and mediastinal contour are stable. Other: None. IMPRESSION: 1. Significant interval improvement in bilateral airspace opacities. RADIA
[2019-11-28] MEDS ORDERED: carvediloL 12.5 MG TABLET PO SCH (09:00)
[2019-11-28] MEDS: SODIUM CHLORIDE FLUSH 0.9% 10 ML SYRINGE IVP SCH (10:38)
--- NOTE | 2019-11-28 11:09 | Discharge Plan ---
Discharge Plan Problem Reviewed?: Yes Disposition: Home, Self Care Condition: Stable Prescriptions: carvediloL [Coreg] 12.5 mg PO DAILY #30 tablet chlordiazePOXIDE [Librium] 10 mg PO BID #8 capsule Ciprofloxacin HCl [Cipro] 500 mg PO BID #10 tablet Loperamide [Imodium] 2 mg PO QID PRN #12 capsule PRN Reason: Diarrhea Magnesium Oxide [Mag Ox] 400 mg PO DAILYWM #14 tablet Nicotine 7 mg Patch [Nicoderm] 1 each TOP Q24H #7 patch Potassium Chloride 20 meq PO DAILY #14 tablet.er Vitamin [Trinatal Rx 1] 1 tab PO DAILYWM #30 tablet Thiamine [Vitamin B-1] 100 mg PO DAILY #30 tablet Diet: Soft Activity Restrictions: Activity as Tolerated Shower Restrictions: No Driving Restrictions: No Instruction Topics: Chlordiazepoxide capsules, Pancreatitis, Withdrawal Alcohol What Expect, ED Withdrawal Alcohol Health Concerns: You were admitted with alcoholic-induced pancreatitis and went through alcohol withdrawal. You developed fevers and an infection was suspected, the cause appears to be a pneumonia. You need several more days of oral antibiotics (Cipro) to finish treatment. Take your probiotic with these. Our Cartography Supervisor spoke to you with resources for maintaining abstinence from alcohol abuse. You are being sent home with medications to continue detoxification (several tablets of Librium), also Potassium and Magnesium replacements for 2 weeks, and a multivitamin and a Thiamine pills for a month. Continue to stay on a soft diet, use the Imodium as needed for diarrhea. A new prescription for a Nicotine Patch was ordered, to help you quit smoking. A new prescription for treating (new diagnosis of) High Blood Pressure was ordered. You need to see your (new) PCP for refills if it needs to be continued. You may resume your previous daily medications. All your new prescriptions were sent to [facility] electronically. Plan of Treatment: As above. Care Goals: Improvement in symptoms and stabilization are the goals. Assessment: Patient understands and is agreeable with the plan. Additional Instructions or Follow Up instructions: You should see your (new) PCP in 5 to 10 days for hospital follow-up and for any refill of medications. [facility], but you can chose who you want. No Smoking: If you smoke, Please STOP! Call for help. Follow-up with: Angelo Sawyer MD [Physician No Access] -
--- NOTE | 2019-11-28 12:04 | DISCHARGE SUMMARY ---
Discharge Summary Admit Date: 11/19/19 Discharge Date: 11/28/19 Discharging Provider: Dr Sabrina Renteria Primary Care Provider: No PCP chosen yet Code Status: Attempt Resuscitation Condition at Discharge: Stable Discharge Disposition: 01 Home, Self Care - [facility] History of Present Illness: From the admission H&P of Dr Cecy Colmenares: Patient is a 43 y/o male who presented to the ED with complain of abdominal pain which started this morning but got worse this afternoon around 2pm. It was initially a sharp left sided pain which then progressed to his entire abdomen. Initially it was a 10/10 pain scale. Currently he rates the pain 3/10. In the ED work up included a lipase level which was 1510. CT scan of the abdomen showed acute pancreatitis. He also had a WBC of 14 and lactic acid of 4.6. For the past 2 months he has been drinking 5-7 drinks of vodka and tonic daily, since being off work. 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 He reports nausea and vomiting as well. He last vomited in the ED. He denied chest pain, dyspnea or fever. At bedside he is tremulous and slightly diaphoretic. He denies having withdrawal symptoms before. As a result of his presentation, he is being admitted for further treatment. - HOSPITAL COURSE Hospital Course: (1) Alcoholic pancreatitis He was put on antiemetics prn, pain meds prn, iv fluids and bowel rest. Lipase elevation resolved: 1510>> 1330>> 329>> 85>> 54. Triglyceride level was normal. CT abdomen had been repeated and no complication seen. He was eventually able to start oral liquids and then his diet was advanced to soft low fiber diet. (2) Alcohol withdrawal He was tremulous at admission and was put on a CIWA protocol with prn iv Ativan. Later that night he became confused and was combative with HTN 172/122. He was moved to the ICU, he needed restraints and to be treated with iv Precedex drip and iv Ativan prn, which he needed for 3 days. He got iv Banana Bag and then was transitioned to oral vitamins, Folate and Thiamine. The Precedex was weaned to off and he awoke, was lucid but tremulous and he started to ambulate. He required oral Librium to manage further slight tremors, and was discharged with several Librium tablets to wean down at home. (3) Atypical pneumonia He developed a fever on his second day. The admission WBC of 14.9, keila to 19.8. Urinalysis was unremarkable and a urine culture grew no bacteria. Blood cultures were drawn, and have been neg to date. Interstitial infiltrate was seen on CXR seen and he had a cough but was not hypoxic. A repeat CT abdomen was done that showed no abscess or peritoneal fluid, but continued pancreatitis. He was started on empiric Zithromax and Doxycycline. The fever persisted, the empiric antibiotics were broadened to Vancomycin and Cefepime plus probiotic. He was swabbed for COVID, and results were neg (done 11/24/19 and 11/26/19), isolation was stopped. He defervesced on 11/26/19 and the WBC improved: 19.8>> 14>> 16>> 15>> 13. A repeat CXR showed improvement of the infiltrate. At discharge, he was sent home to finish a course of Cipro with probiotic. (4) Diarrhea He got diarrhea after he ate (gastro-colic reflex, probably). C. diff was checked and was neg. Florastor probiotic was used. Imodium was started prn and a soft low-fiber diet was continued. If those measures don't help, he may have pancreatic insufficiency and may need pancreatic enzymes. (5) Hypokalemia The Potassium was as low as 2.9, and was related to inadequate intake and losses in diarrhea. Potassium was replaced and he was sent home with 2 weeks of daily KCl tablets. (6) Hypomagnesemia The Magnesium was as low as 1.4 and was related to inadequate intake and losses in diarrhea. Magnesium was replaced and he was sent home with 2 weeks of daily Magnesium tablets. (7) Alcohol use disorder His MCV was 105, PT was normal, but LFTs elevated. SW met with the patient after he stabilized to provide options regarding detox and counseling and provided him with resources (names of counselors). He admitted that he wants to quit alcohol abuse now, because he despised the taste of alcohol and also does not want to go through the pain of pancreatitis again. He was started on oral Librium and discharged with this for an additional few days since he still had a tremor. (8) HTN After acute withdrawal symptoms subsided, he remained hypertensive and was started on Carvedilol 12.5 mg and was sent home with a new prescription for this. He was advised to establish with a new PCP in order to continue medication refills if needed for treating hypertension. (9) Transaminitis This was felt to be secondary to alcohol abuse and improved, AST: 156>> 111>> 80>> 50>> 40 , ALT: 100>> 76>> 53>> 48>> 32 , his bilirubin fluctuated between 2.0 and 1.4. (9) Psoriasis The patient requested Eucerin cream for this when he had a break out of scaly redness of his face after washing and shaving on 11/27/19, which will be ordered. - ALLERGIES Allergies/Adverse Reactions: Allergies Allergy/AdvReac Type Severity Reaction Status Date / Time No Known Drug Allergies Allergy Verified 11/19/19 00:23 - MEDICATIONS Home Medications: Ambulatory Orders Medication Instructions Recorded Confirmed Dicyclomine [Bentyl] 10 mg PO PRN PRN 11/19/19 11/19/19 Omeprazole 20 mg PO DAILY 11/19/19 11/19/19 Ciprofloxacin HCl [Cipro] 500 mg PO BID #10 tablet 11/28/19 Loperamide [Imodium] 2 mg PO QID PRN #12 capsule 11/28/19 Magnesium Oxide [Mag Ox] 400 mg PO DAILYWM #14 tablet 11/28/19 Nicotine 7 mg Patch [Nicoderm] 1 each TOP Q24H #7 patch 11/28/19 Potassium Chloride 20 meq PO DAILY #14 tablet.er 11/28/19 Vitamin [Trinatal Rx 1] 1 tab PO DAILYWM #30 tablet 11/28/19 Thiamine [Vitamin B-1] 100 mg PO DAILY #30 tablet 11/28/19 carvediloL [Coreg] 12.5 mg PO DAILY #30 tablet 11/28/19 chlordiazePOXIDE [Librium] 10 mg PO BID #8 capsule 11/28/19 - PHYSICAL EXAM AT DISCHARGE General Appearance: positive: No acute distress, Alert Eyes Bilateral: positive: Normal inspection, EOMI ENT: positive: ENT inspection nml, No signs of dehydration Neck: positive: Nml inspection, No JVD Respiratory: positive: No respiratory distress, Breath sounds nml Cardiovascular: positive: Regular rate & rhythm, No murmur Abdomen: positive: Non-tender, No distention Skin: positive: Color nml Extremities: positive: No pedal edema Neurologic/Psychiatric: positive: Oriented x3, Other (Fine tremor intermittently.) - LABS Result Diagrams: 11/28/19 04:30 11/28/19 04:30 - DIAGNOSTIC IMAGING Diagnostic Imaging Results: Final report reviewed - FOLLOW UP Follow Up: He needs to establish with a PCP, and he said he [facility] to [facility] to [facility] or . The SW gave him names of Providers. - TIME SPENT Time Spent in Discharge (Minutes): 60
[2019-11-28 15:50] VITALS: BP 133/91
[2019-11-29] MEDS ORDERED: POTASSIUM CHLORIDE 20 MEQ/15 ML UDC PO SCH (08:00)
[2019-11-29] MEDS ORDERED: MAGNESIUM OXIDE 400 MG TABLET PO SCH (09:00)
== END 2019-11-28 14:22 | disposition home or self-care (01) | DRG 438 ==
LOC: ED 23:59 → MS3 11-19 02:25 → ICU 11-20 00:56
PROVIDERS: ADMIT Internal Medicine; ATTEND Internal Medicine
DX: K85.20 Alcohol induced acute pancreatitis without necrosis or infection (principal); J18.9 Pneumonia, unspecified organism; F10.231 Alcohol dependence with withdrawal delirium; E87.2 Acidosis; R09.02 Hypoxemia; R19.7 Diarrhea, unspecified; E87.6 Hypokalemia; E83.42 Hypomagnesemia; R74.0 Nonspecific elevation of levels of transaminase and lactic acid dehydrogenase [LDH]; I10 Essential (primary) hypertension; L40.9 Psoriasis, unspecified; F17.210 Nicotine dependence, cigarettes, uncomplicated; Z20.828 Contact with and (suspected) exposure to other viral communicable diseases; Z78.1 Physical restraint status; Z72.89 Other problems related to lifestyle
CPT/HCPCS: 36415; 71045; 74177; 80048; 80053; 80061; 80076; 80202; 80306; 80307; 80320; 80329; 81001; 81599; 82550; 83605; 83690; 83735; 84100; 84484; 85025; 85610; 85730; 87040; 87086; 87150; 87493; 87635; 93005; 93970; 96361; 96365; 96375; 96376; 97161; 99285; 99291; A9270; J1170; J1650; J2060; J3370; J3411; Q9967; 83721

== ENCOUNTER 2019-12-07 16:53 | Outpatient (CLI) | payer MEDICAID ==
[2019-12-07 19:24] LABS: GLUCOSE, URINE (UA) NEGATIVE (NEGATIVE); KETONES,URINE (UA) TRACE mg/dL (NEGATIVE); LEUKOCYTE ESTERASE, URINE NEGATIVE (NEGATIVE); NITRITE,URINE NEGATIVE (NEGATIVE); OCCULT BLOOD,URINE NEGATIVE (NEGATIVE); PH,URINE 5.5 PH (5.0-7.5); PROTEIN,URINE NEGATIVE (NEGATIVE); UROBILINOGEN,URINE 0.2 (NORMAL) E.U./dL (NORMAL)
[2019-12-07 19:38] LABS: BILIRUBIN,URINE NEGATIVE (NEGATIVE); CLARITY,URINE CLEAR (CLEAR); ICTOTEST,URINE NEGATIVE
== END 2019-12-07 23:59 | disposition home or self-care (01) ==
LOC: LAB.R 16:53
PROVIDERS: ATTEND Nurse Practitioner
DX: R39.15 Urgency of urination (principal)
CPT/HCPCS: 81001; 81003; 87086

== ENCOUNTER 2019-12-18 11:10 | Outpatient (CLI) | payer MEDICAID ==
[2019-12-18 11:50] LABS: BASOPHILS # (AUTO) 0.1 10^3/uL (0.0-0.1); BASOPHILS % (AUTO) 0.6 %; EOSINOPHILS # (AUTO) 0.5 10^3/uL (0.0-0.7); EOSINOPHILS % (AUTO) 4.6 %; HGB - HEMOGLOBIN 14.3 g/dL (14.0-18.0); LYMPHOCYTES # (AUTO) 3.5 10^3/uL (1.5-3.5); MEAN CORPUSCULAR HGB CONC 33.9 g/dL (32.0-36.0); MEAN CORPUSCULAR VOLUME 100.5 fL (80.0-94.0); MEAN PLATELET VOLUME 9.3 fL (7.4-11.4); MONOCYTES # (AUTO) 0.8 10^3/uL (0.0-1.0); MONOCYTES % (AUTO) 7.3 %; NEUTROPHILS # (AUTO) 6.1 10^3/uL (1.5-6.6); NEUTROPHILS % (AUTO) 55.1 %; PLT - PLATELET COUNT 283 10^3/uL (130-450); RED CELL DISTRIBUTION WIDTH 12.6 % (12.0-15.0)
[2019-12-18 12:02] LABS: INR 1.3 (0.8-1.2); PT - PROTHROMBIN TIME 14.5 secs (9.9-12.6)
[2019-12-18 12:06] LABS: ALBUMIN 3.9 g/dL (3.2-5.5); ALBUMIN/GLOBULIN RATIO 1.2 (1.0-2.2); BILIRUBIN,TOTAL 0.7 mg/dL (0.2-1.0); CALCIUM 9.6 mg/dL (8.5-10.3); CREATININE 0.7 mg/dL (0.6-1.2); MAGNESIUM 1.6 mg/dL (1.7-2.8); TOTAL PROTEIN 7.2 g/dL (6.7-8.2)
[2019-12-19 12:30] LABS: HIV AG/AB 4TH GEN NON-REACTIVE (NON-REACTIVE)
[2019-12-19 13:15] LABS: HEPATITIS C ANTIBODY NON-REACTIVE (NON-REACTIVE)
== END 2019-12-18 11:11 | disposition home or self-care (01) ==
LOC: LAB 11:10
PROVIDERS: ATTEND Nurse Practitioner
DX: Z87.19 Personal history of other diseases of the digestive system (principal); R19.7 Diarrhea, unspecified; K85.21 Alcohol induced acute pancreatitis with uninfected necrosis; Z87.01 Personal history of pneumonia (recurrent); F10.99 Alcohol use, unspecified with unspecified alcohol-induced disorder; Z11.4 Encounter for screening for human immunodeficiency virus [HIV]
CPT/HCPCS: 36415; 80053; 83735; 85025; 85610; 86317; 86704; 86803; 87389

== ENCOUNTER 2020-05-25 22:44 | Inpatient (IN) | payer MEDICAID ==
--- NOTE | 2020-05-25 22:49 | ED Physician Documentation ---
PD HPI ABD PAIN - Stated complaint Stated Complaint: ABS PX/VOMITING/BACK PX - History obtained from History obtained from: Patient - History of Present Illness Timing - onset: How many days ago (2-3) Timing - duration: Days (2-3) Timing - details: Gradual onset (initially gradual but significantly worse today and vomiting as well this evening.) Quality: Cramping, Aching Location: Epigastric Radiation: Upper back Improved by: No: Vomiting Worsened by: Eating Associated symptoms: Nausea, Vomiting, Loss of appetite. No: Fever, Hematemesis, Diarrhea, Constipation, Melena, Chest pain Similar symptoms before: Diagnosis (milder version Dx as pancreatitis earlier in the year. Has not had episode this severe.) Review of Systems Constitutional: denies: Fever, Chills Nose: denies: Rhinorrhea / runny nose, Congestion Throat: denies: Sore throat Cardiac: denies: Chest pain / pressure Respiratory: denies: Dyspnea, Cough GI: reports: Abdominal Pain, Nausea, Vomiting. denies: Abdominal Swelling, Hematemesis, Bloody / black stool : denies: Dysuria Skin: denies: Rash, Lesions Neurologic: reports: Generalized weakness. denies: Focal weakness, Near syncope Psychiatric: denies: Depressed, Suicidal PD PAST MEDICAL HISTORY - Past Medical History Cardiovascular: None Respiratory: None Neuro: None Endocrine/Autoimmune: None GI: Pancreatitis, Other (denies hepatitis nor cirrhosis; some IBS and takes dicyclomine PRN. ) - Past Surgical History Past Surgical History: No - Present Medications Home Medications: Ambulatory Orders Medication Instructions Recorded Confirmed Dicyclomine [Bentyl] 10 mg PO PRN PRN 11/19/19 11/19/19 Omeprazole 20 mg PO DAILY 11/19/19 11/19/19 Ciprofloxacin HCl [Cipro] 500 mg PO BID #10 tablet 11/28/19 Loperamide [Imodium] 2 mg PO QID PRN #12 capsule 11/28/19 Magnesium Oxide [Mag Ox] 400 mg PO DAILYWM #14 tablet 11/28/19 Nicotine 7 mg Patch [Nicoderm] 1 each TOP Q24H #7 patch 11/28/19 Potassium Chloride 20 meq PO DAILY #14 tablet.er 11/28/19 Vitamin [Trinatal Rx 1] 1 tab PO DAILYWM #30 tablet 11/28/19 Thiamine [Vitamin B-1] 100 mg PO DAILY #30 tablet 11/28/19 carvediloL [Coreg] 12.5 mg PO DAILY #30 tablet 11/28/19 chlordiazePOXIDE [Librium] 10 mg PO BID #8 capsule 11/28/19 - Allergies Allergies/Adverse Reactions: Allergies Allergy/AdvReac Type Severity Reaction Status Date / Time No Known Drug Allergies Allergy Verified 11/19/19 00:23 - Social History Smoking Status: Current every day smoker - POLST Patient has POLST: No POLST Status: Full Code PD ED PE NORMAL - Vitals Vital signs reviewed: Yes - General General: Alert and oriented X 3, Well developed/nourished, Other (appears in pain due to upper abd. Actively dry heaving. No hematemesis. ) - HEENT HEENT: Pharynx benign. No: Moist mucous membranes - Neck Neck: Supple, no meningeal sign, No adenopathy - Cardiac Cardiac: RRR (mild tachycardia), No murmur - Respiratory Respiratory: Clear bilaterally - Abdomen Abdomen: Normal bowel sounds, Soft, Non distended, No organomegaly, Other (markedly tender mid upper abd. Percussion tender. Lower abd not tender. ) - Male Male : Deferred - Rectal Rectal: Deferred - Back Back: No CVA TTP - Derm Derm: Normal color, Warm and dry - Neuro Neuro: Alert and oriented X 3, No motor deficit, Normal speech Results - Vitals Vitals: Vital Signs - 24 hr 05/25/20 05/25/20 22:49 23:15 Temperature 36.5 C Heart Rate 108 H 89 Respiratory 18 18 Rate Blood Pressure 145/97 H 144/108 H O2 Saturation 100 99 Oxygen O2 Source Room air - Labs Labs: Laboratory Tests 05/25/20 05/25/20 23:05 23:05 WBC 14.1 H RBC 4.86 Hgb 17.0 Hct 47.9 MCV 98.6 H MCH 35.0 H MCHC 35.5 RDW 12.9 Plt Count 251 MPV 9.0 Neut # (Auto) 10.6 H Lymph # (Auto) 2.5 [place] # (Auto) 0.7 Eos # (Auto) 0.2 Baso # (Auto) 0.1 Absolute Nucleated RBC 0.00 Nucleated RBC % 0.0 Sodium 143 Potassium 3.7 Chloride 102 Carbon Dioxide 23 Anion Gap 18.0 H BUN 9 Creatinine 0.8 Estimated GFR (MDRD) 105 Glucose 110 H Calcium 9.1 Total Bilirubin 0.9 AST 157 H ALT 59 Alkaline Phosphatase 121 Total Protein 7.7 Albumin 4.6 Globulin 3.1 Albumin/Globulin Ratio 1.5 Lipase 1116 H Salicylates < 6.0 Acetaminophen < 10 L Ethyl Alcohol 307.6 PD MEDICAL DECISION MAKING - ED course Complexity details: reviewed results (Degree of pain and needing several doses of medicines in conjunction with his markedly elevated lipase would suggest it would be unlikely to be able to be treated outpatient. I talked with the hospitalist.), re-evaluated patient (Improved and he seems calmer with IV medications and fluids. No vomiting at this time.), considered differential ( Symptoms are consistent with likely pancreatitis. Will check LFTs as well. No history of gallbladder problems. No hematemesis. We will give IV fluids and pain medicines. He will be at risk for alcohol withdrawal as well so can monitor for that.), d/w patient Departure - Departure Disposition: 66 [facility] DC/Xfer Clinical Impression: Alcohol use disorder Vomiting Qualifiers: Vomiting type: bilious vomiting Nausea presence: with nausea Qualified Code(s): R11.14 - Bilious vomiting Abdominal pain Qualifiers: Abdominal location: upper abdomen, unspecified Qualified Code(s): R10.10 - Upper abdominal pain, unspecified Pancreatitis Qualifiers: Chronicity: acute Pancreatitis type: alcohol induced Acute pancreatitis complication: unspecified Qualified Code(s): K85.20 - Alcohol induced acute pancreatitis without necrosis or infection Condition: Stable Record reviewed to determine appropriate education?: Yes
[2020-05-25] MEDS ORDERED: ONDANSETRON 4 MG/2 ML VIAL IVP STA (23:04)
[2020-05-25] MEDS ORDERED: SODIUM CHLORIDE 0.9% 1,000 ML IV STA (23:04)
[2020-05-25] MEDS ORDERED: HYDROmorphone 1 MG/ML CARPUJECT IVP STA ×2 (23:04→23:45)
[2020-05-25] MEDS ORDERED: KETOROLAC 30 MG/ML VIAL IVP STA (23:06)
[2020-05-25] MEDS ORDERED: FAMOTIDINE 20 MG/2 ML SYRINGE IVP STA (23:06)
[2020-05-25] MEDS ORDERED: LORazepam 2 MG/ML VIAL IVP STA (23:07)
[2020-05-25 23:22] LABS: BASOPHILS # (AUTO) 0.1 10^3/uL (0.0-0.1); BASOPHILS % (AUTO) 0.7 %; EOSINOPHILS # (AUTO) 0.2 10^3/uL (0.0-0.7); EOSINOPHILS % (AUTO) 1.1 %; LYMPHOCYTES # (AUTO) 2.5 10^3/uL (1.5-3.5); LYMPHOCYTES % (AUTO) 17.4 %; MEAN CORPUSCULAR HGB CONC 35.5 g/dL (32.0-36.0); MEAN CORPUSCULAR VOLUME 98.6 fL (80.0-94.0); MONOCYTES # (AUTO) 0.7 10^3/uL (0.0-1.0); MONOCYTES % (AUTO) 4.9 %; NEUTROPHILS # (AUTO) 10.6 10^3/uL (1.5-6.6); NEUTROPHILS % (AUTO) 75.3 %; PLT - PLATELET COUNT 251 10^3/uL (130-450); RED BLOOD COUNT 4.86 10^6/uL (4.70-6.10); RED CELL DISTRIBUTION WIDTH 12.9 % (12.0-15.0); WHITE BLOOD COUNT 14.1 x10^3/uL (4.8-10.8)
[2020-05-26 00:23] LABS: ACETAMINOPHEN < 10 ug/mL (10-30); ALBUMIN 4.6 g/dL (3.2-5.5); ALBUMIN/GLOBULIN RATIO 1.5 (1.0-2.2); ALKALINE PHOSPHATASE 121 IU/L (42-121); ALT ALANINE AMINOTRANSFERASE 59 IU/L (10-60); AST ASPARTATE AMINOTRANSFERASE 157 IU/L (10-42); BILIRUBIN,TOTAL 0.9 mg/dL (0.2-1.0); BUN - BLOOD UREA NITROGEN 9 mg/dL (6-20); CALCIUM 9.1 mg/dL (8.5-10.3); CARBON DIOXIDE - CO2 23 mmol/L (21-32); CHLORIDE 102 mmol/L (101-111); CREATININE 0.8 mg/dL (0.6-1.2); GLUCOSE 110 mg/dL (70-100); LIPASE 1116 U/L (22-51); SALICYLATE < 6.0 mg/dL; SODIUM 143 mmol/L (135-145); TOTAL PROTEIN 7.7 g/dL (6.7-8.2)
[2020-05-26] MEDS ORDERED: LACTATED RINGERS 1,000 ML IV STA (00:35)
[2020-05-26] MEDS ORDERED: ACETAMINOPHEN 325 MG TABLET PO PRN (00:40)
[2020-05-26] MEDS ORDERED: oxyCODONE 5 MG TABLET PO PRN (00:40)
--- NOTE | 2020-05-26 00:56 | HISTORY & PHYSICAL EXAMINATION ---
Chief Complaint - Chief Complaint Chief Complaint: epigastric abdominal pain, n/v History of Present Illness - Admitted From Admitted From:: [facility] ED - History Obtained From Records Reviewed: Yes History obtained from: Patient - History of Present Illness HPI Comment/Other: Patient is a 44-year-old male who presented to the ED with epigastric pain, nausea and vomiting. His symptoms have been going on for the past 2 to 3 days but got worse today. He has history of alcohol abuse and has previously been admitted in October 2019 with pancreatitis secondary to alcohol abuse. Today his alcohol level is 300. He reports last drinking today. He had about 2 glasses of wine but normally he would drink about 5-7 glasses of vodka/tonic mix daily. During his last admission he went into alcohol withdrawal and was transferred to the ICU. He was in the hospital for a total of 10 days. He said he was sober for about 3 months after discharge. He reports the stressors from the pandemic as precipitating factor to him starting to drink again. In the ED he was found to have a lipase level of 1100. He has been dry heaving since presentation to the ED. His symptoms are improved with some medication however he still complains of pain and nausea. As a result he was presented for admission for further treatment. He denies chest pain, dyspnea, fever or chills. History - Past Medical History Cardiovascular: reports: None Respiratory: reports: None Neuro: reports: None Endocrine/Autoimmune: reports: None GI: reports: Pancreatitis, Other (denies hepatitis nor cirrhosis; some IBS and takes dicyclomine PRN. ) - Past Surgical History Other past surgical history: Denies any significant surgical history - Family & Social History Family History Comment/Other: father: an unspecified cardiac history. mother: abdominal pain which seems to be exacerbated by diary products and spicy foods Social History Notes: He drinks 5-7 drinks of vodka and tonic daily. He smokes 1ppd X 20 years. He occasionally smokes marijuana - POLST Patient has POLST: No POLST Status: Full Code Meds/Allgy - Home Medications Home Medications: Ambulatory Orders Medication Instructions Recorded Confirmed Dicyclomine [Bentyl] 10 mg PO PRN PRN 11/19/19 11/19/19 Omeprazole 20 mg PO DAILY 11/19/19 11/19/19 Ciprofloxacin HCl [Cipro] 500 mg PO BID #10 tablet 11/28/19 Loperamide [Imodium] 2 mg PO QID PRN #12 capsule 11/28/19 Magnesium Oxide [Mag Ox] 400 mg PO DAILYWM #14 tablet 11/28/19 Nicotine 7 mg Patch [Nicoderm] 1 each TOP Q24H #7 patch 11/28/19 Potassium Chloride 20 meq PO DAILY #14 tablet.er 11/28/19 Vitamin [Trinatal Rx 1] 1 tab PO DAILYWM #30 tablet 11/28/19 Thiamine [Vitamin B-1] 100 mg PO DAILY #30 tablet 11/28/19 carvediloL [Coreg] 12.5 mg PO DAILY #30 tablet 11/28/19 chlordiazePOXIDE [Librium] 10 mg PO BID #8 capsule 11/28/19 - Allergies Allergies/Adverse Reactions: Allergies Allergy/AdvReac Type Severity Reaction Status Date / Time No Known Drug Allergies Allergy Verified 11/19/19 00:23 Review of Systems - Constitutional Constitutional: denies: Fatigue, Fever, Chills - Eyes Eyes: denies: Pain - Ears, Nose & Throat Ears, Nose & Throat: denies: Ear pain - Cardiovascular Cariovascular: denies: Irregular heart rate, Palpitations, Chest pain, Edema, Lightheadedness, Syncope - Respiratory Respiratory: denies: Cough, Sputum production, Wheezing, Snoring, Orthopnea, SOB at rest, SOB with exertion - Gastrointestinal Gastrointestinal: reports: Abdominal pain, Nausea, Vomiting. denies: Abdominal distention, Constipation, Diarrhea, Reflux/heartburn - Genitourinary Genitourinary: denies: Dysuria, Frequency, Urgency, Hematuria - Musculoskeletal Musculoskeletal: denies: Muscle pain, Back pain, Muscle aches, Stiffness - Integumentary Integumentary: denies: Rash, Pruritis, Lesions, Dryness - Neurological Neurological: denies: General weakness, Focal weakness - Psychiatric Psychiatric: denies: Depression, Anxiety - Endocrine Endocrine: denies: Polyuria, Polydypsia - Hematologic/Lymphatic Hematologic/Lymphatic: denies: Anemia, Bruising, Petechiae Prior Level of Functionality: Patient is independent of activities of daily living. 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 negative: Wheezes, Rales, Rhonchi Cardiovascular: positive: Tachycardia Abdomen: positive: No organomegaly, Nml bowel sounds, No distention, Tenderness. negative: Guarding, Rebound Back: positive: Nml inspection Skin: positive: Color nml, No rash, Warm, Dry Extremities: positive: Non-tender, Full ROM, Nml appearance, No pedal edema Neurologic/Psychiatric: positive: Oriented x3, Mood/affect nml Conclusion/Plan - Problem List (1) Alcoholic pancreatitis Conclusion/Plan: Lipase level was 1100. Will trend lipase Patient made n.p.o. except for meds, sips and ice chips. Patient started on IV hydration with normal saline at 150 mils per hour. Pain management as needed with Tylenol, oxycodone and oral Dilaudid. WA protocol ordered. Qualifiers: Chronicity: acute (2) Leukocytosis Conclusion/Plan: Likely reactive Will monitor Qualifiers: Leukocytosis type: unspecified Qualified Code(s): D72.829 - Elevated white blood cell count, unspecified (3) Tobacco abuse Conclusion/Plan: Nicotine patch ordered. - Lab Results Fish Bones: 05/25/20 23:05 05/25/20 23:05 Core Measures - Anticipated LOS I expect patient to be DC'd or transferred within 96 hours.: Yes - DVT/VTE - Prophylaxis VTE/DVT Device ordered at admit?: Yes
[2020-05-26] MEDS ORDERED: NICOTINE 14 MG PATCH TOP STA (01:51)
[2020-05-26] MEDS: HYDROmorphone 0.5 MG/0.5 ML SYRINGE IVP PRN ×6 (02:22→20:36)
[2020-05-26] MEDS: SODIUM CHLORIDE FLUSH 0.9% 10 ML SYRINGE IVP SCH ×3 (02:23→18:38)
[2020-05-26] MEDS: SODIUM CHLORIDE 0.9% 1,000 ML IV SCH ×4 (02:25→18:38)
[2020-05-26 04:49] LABS: BASOPHILS # (AUTO) 0.1 10^3/uL (0.0-0.1); BASOPHILS % (AUTO) 0.7 %; EOSINOPHILS # (AUTO) 0.1 10^3/uL (0.0-0.7); EOSINOPHILS % (AUTO) 0.6 %; HGB - HEMOGLOBIN 14.1 g/dL (14.0-18.0); LYMPHOCYTES % (AUTO) 20.1 %; MEAN CORPUSCULAR HEMOGLOBIN 34.9 pg (27.0-31.0); MEAN CORPUSCULAR HGB CONC 34.5 g/dL (32.0-36.0); MEAN CORPUSCULAR VOLUME 101.2 fL (80.0-94.0); MEAN PLATELET VOLUME 8.7 fL (7.4-11.4); MONOCYTES # (AUTO) 0.6 10^3/uL (0.0-1.0); NEUTROPHILS # (AUTO) 7.3 10^3/uL (1.5-6.6); NEUTROPHILS % (AUTO) 72.3 %; PLT - PLATELET COUNT 201 10^3/uL (130-450); RED BLOOD COUNT 4.04 10^6/uL (4.70-6.10); RED CELL DISTRIBUTION WIDTH 13.2 % (12.0-15.0); WHITE BLOOD COUNT 10.1 x10^3/uL (4.8-10.8)
[2020-05-26 05:27] LABS: CALCIUM 8.1 mg/dL (8.5-10.3); CREATININE 0.7 mg/dL (0.6-1.2)
[2020-05-26] MEDS ORDERED: FLU VACC QS2020-21(6MOS UP)/PF 60 MCG/0.5 ML SYRINGE IM ONE (06:05)
[2020-05-26] MEDS: SODIUM CHLORIDE FLUSH 0.9% 10 ML SYRINGE IVP PRN (06:46)
[2020-05-26] MEDS: PANTOPRAZOLE 40 MG VIAL IVP SCH (06:46)
[2020-05-26] MEDS: ONDANSETRON 4 MG/2 ML VIAL IVP PRN ×2 (07:55→15:09)
[2020-05-26] MEDS: LORazepam 2 MG/ML VIAL IVP PRN ×4 (08:41→22:38)
[2020-05-26] MEDS: MULTIVITAMIN 10 ML, THIAMINE INJ 100 MG, FOLIC ACID INJ 1 MG in SODIUM CHLORIDE 0.9% 1,... IV SCH (08:43)
[2020-05-26 10:41] LABS: MUDS CUTOFF CONCENTRATIONS CUTOFF CONC BELOW:
[2020-05-26 10:47] LABS: GLUCOSE, URINE (UA) NEGATIVE (NEGATIVE); KETONES,URINE (UA) 15 mg/dL (NEGATIVE); LEUKOCYTE ESTERASE, URINE NEGATIVE (NEGATIVE); NITRITE,URINE NEGATIVE (NEGATIVE); OCCULT BLOOD,URINE NEGATIVE (NEGATIVE); PROTEIN,URINE TRACE mg/dL (NEGATIVE); UROBILINOGEN,URINE 0.2 (NORMAL) E.U./dL (NORMAL)
--- NOTE | 2020-05-26 10:50 | PHARMACY PROGRESS NOTE ---
- Best Possible Medication History Admit Date and Time: 05/26/20 0040 Processed by: Pharmacy Medication History completed: Yes Patient Interview: Completed Secondary Source(s): Physician records (PATIENT INTERVIEWED BY WAREHOUSE STOCKER. PATIENT ABLE TO CONFIRM HIS HOME MEDICATIONS ), Pharmacy records, Insurance records As the person ultimately responsible for medication therapy, providers are able to order a medication from an existing home medication list in [facility] via the "Reconcile Routine" prior to Confirmation of that medication by it support engineer. Such practice is discouraged except when the physician, in their clinical judgment, deems that a medical need exists for a medication without regard to previous use.
[2020-05-26 10:52] LABS: CLARITY,URINE CLEAR (CLEAR)
[2020-05-26 10:57] LABS: BILIRUBIN,URINE NEGATIVE (NEGATIVE); ICTOTEST,URINE NEGATIVE
[2020-05-26 10:58] LABS: AMPHETAMINE SCREEN,URINE NEGATIVE (NEGATIVE); BENZODIAZEPINES SCREEN, URINE POSITIVE (NEGATIVE); COCAINE SCREEN URINE NEGATIVE (NEGATIVE); METHADONE SCREEN, URINE NEGATIVE (NEGATIVE); METHAMPHETAMINES SCREEN, URINE NEGATIVE (NEGATIVE); OPIATE SCREEN, URINE POSITIVE (NEGATIVE); OXYCODONE SCREEN, URINE NEGATIVE (NEGATIVE); PROPOXYPHENE SCREEN, URINE NEGATIVE (NEGATIVE); TRICYCLIC ANTIDEPRESSANT,URINE NEGATIVE (NEGATIVE)
[2020-05-26] MEDS: chlordiazePOXIDE 25 MG CAPSULE PO SCH ×2 (12:09→17:58)
[2020-05-26] MEDS: THIAMINE 100 MG TABLET PO SCH (12:16)
[2020-05-26 12:25] LABS: INR 1.2 (0.8-1.2); PT - PROTHROMBIN TIME 12.8 secs (9.9-12.6)
[2020-05-26] MEDS: LIDOCAINE PATCH 5% TOP PRN (22:26)
[2020-05-27] MEDS: chlordiazePOXIDE 25 MG CAPSULE PO SCH ×2 (00:41→05:53)
[2020-05-27] MEDS: LORazepam 2 MG/ML VIAL IVP PRN ×3 (00:51→09:19)
[2020-05-27] MEDS: ONDANSETRON 4 MG/2 ML VIAL IVP PRN ×2 (00:53→08:11)
[2020-05-27] MEDS: SODIUM CHLORIDE 0.9% 1,000 ML IV SCH ×2 (01:02→08:11)
[2020-05-27] MEDS: SODIUM CHLORIDE FLUSH 0.9% 10 ML SYRINGE IVP SCH ×5 (01:04→08:11)
[2020-05-27] MEDS: HYDROmorphone 0.5 MG/0.5 ML SYRINGE IVP PRN ×3 (02:09→09:19)
[2020-05-27] MEDS: SODIUM CHLORIDE FLUSH 0.9% 10 ML SYRINGE IVP PRN ×2 (02:10→06:18)
[2020-05-27 05:31] LABS: BASOPHILS % (AUTO) 0.4 %; EOSINOPHILS # (AUTO) 0.6 10^3/uL (0.0-0.7); EOSINOPHILS % (AUTO) 5.6 %; HGB - HEMOGLOBIN 12.8 g/dL (14.0-18.0); LYMPHOCYTES # (AUTO) 2.2 10^3/uL (1.5-3.5); LYMPHOCYTES % (AUTO) 20.5 %; MEAN CORPUSCULAR HEMOGLOBIN 34.1 pg (27.0-31.0); MEAN CORPUSCULAR HGB CONC 33.2 g/dL (32.0-36.0); MEAN CORPUSCULAR VOLUME 102.9 fL (80.0-94.0); MEAN PLATELET VOLUME 9.6 fL (7.4-11.4); MONOCYTES # (AUTO) 0.5 10^3/uL (0.0-1.0); MONOCYTES % (AUTO) 4.9 %; NEUTROPHILS # (AUTO) 7.2 10^3/uL (1.5-6.6); NEUTROPHILS % (AUTO) 68.1 %; PLT - PLATELET COUNT 168 10^3/uL (130-450); RED BLOOD COUNT 3.75 10^6/uL (4.70-6.10); RED CELL DISTRIBUTION WIDTH 13.2 % (12.0-15.0); WHITE BLOOD COUNT 10.6 x10^3/uL (4.8-10.8)
[2020-05-27 05:56] LABS: CALCIUM 8.4 mg/dL (8.5-10.3); CREATININE 0.6 mg/dL (0.6-1.2)
[2020-05-27] MEDS: PANTOPRAZOLE 40 MG VIAL IVP SCH (06:18)
[2020-05-27 08:57] VITALS: BP 163/108
[2020-05-27] MEDS ORDERED: POTASSIUM CHLORIDE 20 MEQ TABLET PO ONE (09:17)
[2020-05-27] MEDS: LIDOCAINE PATCH 5% TOP PRN (09:18)
[2020-05-27] MEDS: MULTIVITAMIN 10 ML, THIAMINE INJ 100 MG, FOLIC ACID INJ 1 MG in SODIUM CHLORIDE 0.9% 1,... IV SCH (09:54)
[2020-05-27] MEDS: THIAMINE 100 MG TABLET PO SCH (10:03)
[2020-05-27] MEDS ORDERED: LORazepam 2 MG/ML VIAL IVP PRN (10:40)
--- NOTE | 2020-05-27 11:40 | DISCHARGE SUMMARY ---
Discharge Summary Admit Date: 05/26/20 Discharge Date: 05/27/20 Discharging Provider: Rian Zacarias Primary Care Provider: Carolin Navarro Code Status: Attempt Resuscitation Condition at Discharge: Stable Discharge Disposition: Against Medical Advice Discharge Facility Name: home - DIAGNOSES Discharge Diagnoses with Status of Each Condition: (1) Alcoholic pancreatitis Patient reported he has no abdominal pain, But he is lipase still high over 900 from 1100 at the admission.Unfortunately patient signed AMA and left hospital (2) Leukocytosis resolved (3) Tobacco abuse advise pt quit (4)AMA Pt is alert and orient plus 4. Patient request AMA. I with nurse to discuss patient the risk of AMA, pt understood but still signed AMA and left hospital. I prescribed 4 pill of Librium to help pt for alcohol withdrawal. Nurse with me educate pt: do not drink alcohol when he take Librium which could even cause him serious injury or even , strongly advise pt quit alcohol. pt state he understood all that and continue to sign AMA. - HPI History of Present Illness: refer from Dr. Colmenares's HPI on 05/26/2020. Patient is a 44-year-old male who presented to the ED with epigastric pain, katja sea and vomiting. His symptoms have been going on for the past 2 to 3 days but got worse today. He has history of alcohol abuse and has previously been admitted in October 2019 with pancreatitis secondary to alcohol abuse. Today his alcohol level is 300. He reports last drinking today. He had about 2 glasses of wine but normally he would drink about 5-7 glasses of vodka/tonic mix daily. During his last admission he went into alcohol withdrawal and was transferred to the ICU. He was in the hospital for a total of 10 days. He said he was sober for about 3 months after discharge. He reports the stressors from the pandemic as precipitating factor to him starting to drink again. In the ED he was found to have a lipase level of 1100. He has been dry heaving since presentation to the ED. His symptoms are improved with some medication however he still complains of pain and nausea. As a result he was presented for admission for further treatment. He denies chest pain, dyspnea, fever or chills. - HOSPITAL COURSE Hospital Course: pt was admitted for epigastric pain, nausea and vomiting, Alcohol level was over 300. Patient's lipase was found over 1100. Patient was given intravenous IV fluids, clear liquid diet, CIWA protocol, Librium, and Ativan as needed. In the morning, patient report he has no abdominal pain, he want to sign the AMA and left the hospital. pt is alert and oriented plus 4, Nurse and me discussed patient the risks of AMA but patient continue signed AMA and left the hospital. - ALLERGIES Allergies/Adverse Reactions: Allergies Allergy/AdvReac Type Severity Reaction Status Date / Time No Known Drug Allergies Allergy Verified 11/19/19 00:23 - MEDICATIONS Home Medications: Ambulatory Orders Medication Instructions Recorded Confirmed Dicyclomine [Bentyl] 10 mg PO PRN PRN 11/19/19 05/26/20 Omeprazole 20 mg PO DAILY 11/19/19 05/26/20 Magnesium Oxide [Mag Ox] 400 mg PO DAILYWM #14 tablet 11/28/19 05/26/20 Potassium Chloride 20 meq PO DAILY #14 tablet.er 11/28/19 05/26/20 chlordiazePOXIDE [Librium] 25 mg PO Q6H PRN #4 capsule 05/27/20 - PHYSICAL EXAM AT DISCHARGE Physical Exam Other/Comments: pt signed AMA and left hospital, I could not do physical examination. - LABS Result Diagrams: 05/27/20 05:10 05/27/20 05:10 - FOLLOW UP Follow Up: strong advise pt quit Alcohol. pt signed AMA and left hospital - TIME SPENT Time Spent in Discharge (Minutes): 30
== END 2020-05-27 11:40 | disposition left against medical advice (07) | DRG 440 ==
LOC: ED 22:44 → MS3 05-26 00:40
PROVIDERS: ADMIT Internal Medicine; ATTEND Nurse Practitioner Gerontology
DX: K85.20 Alcohol induced acute pancreatitis without necrosis or infection (principal); D72.829 Elevated white blood cell count, unspecified; F17.210 Nicotine dependence, cigarettes, uncomplicated; F10.10 Alcohol abuse, uncomplicated; Z53.29 Procedure and treatment not carried out because of patient's decision for other reasons; Z20.828 Contact with and (suspected) exposure to other viral communicable diseases
CPT/HCPCS: 36415; 80048; 80053; 80306; 80307; 80320; 80329; 81003; 83690; 83735; 85025; 85610; 86140; 87635; 96374; 96375; 96376; 99284; 99285; A9270; J1170; J2060; J3411; J7120; 81001; 87086; 90686

== ENCOUNTER 2020-05-29 12:29 | Emergency (ER) | payer MEDICAID ==
[2020-05-29] MEDS ORDERED: HYDROmorphone 1 MG/ML CARPUJECT IVP STA (13:07)
[2020-05-29] MEDS ORDERED: SODIUM CHLORIDE 0.9% 1,000 ML IV STA ×2 (13:07→14:21)
--- NOTE | 2020-05-29 13:11 | ED Physician Documentation ---
History of Present Illness - Stated complaint Stated Complaint: ABD PX - Chief complaint Chief Complaint: Abd Pain - History obtained from History obtained from: Patient - Additonal information Additional information: 44-year-old male return to the emergency department with uncontrolled abdominal pain and vomiting. He was recently admitted for alcoholic pancreatitis but unfortunately checked himself out AMA 05/27/2020. Since leaving the hospital he reports severe pain radiating to his back and uncontrolled vomiting. He denies any further alcohol use and has been taking the Librium that was prescribed. He denies any fevers cough. No dysuria. Review of Systems Constitutional: denies: Fever, Chills Eyes: reports: Reviewed and negative Ears: reports: Reviewed and negative Cardiac: reports: Reviewed and negative Respiratory: reports: Reviewed and negative GI: reports: Abdominal Pain, Nausea, Vomiting. denies: Constipation, Diarrhea, Bloody / black stool : denies: Dysuria, Frequency Skin: reports: Reviewed and negative Musculoskeletal: reports: Reviewed and negative Neurologic: reports: Reviewed and negative PD PAST MEDICAL HISTORY - Past Medical History Cardiovascular: None Respiratory: None Neuro: None Endocrine/Autoimmune: None GI: Pancreatitis, Other : None Psych: Anxiety Musculoskeletal: Chronic back pain Derm: Other - Past Surgical History Past Surgical History: No - Present Medications Home Medications: Ambulatory Orders Medication Instructions Recorded Confirmed Dicyclomine [Bentyl] 10 mg PO PRN PRN 11/19/19 05/26/20 Omeprazole 20 mg PO DAILY 11/19/19 05/26/20 Magnesium Oxide [Mag Ox] 400 mg PO DAILYWM #14 tablet 11/28/19 05/26/20 Potassium Chloride 20 meq PO DAILY #14 tablet.er 11/28/19 05/26/20 chlordiazePOXIDE [Librium] 25 mg PO Q6H PRN #4 capsule 05/27/20 Hydrocodone/Acetaminophen [Tillman 1 each PO BID PRN #15 tablet 05/29/20 5-325 Tablet] Ondansetron Odt [Zofran] 4 mg TL Q6H PRN #15 tablet 05/29/20 chlordiazePOXIDE [Librium] 25 mg PO Q6H PRN #20 capsule 05/29/20 - Allergies Allergies/Adverse Reactions: Allergies Allergy/AdvReac Type Severity Reaction Status Date / Time No Known Drug Allergies Allergy Verified 11/05/20 12:52 - Social History Smoking Status: Current every day smoker - POLST Patient has POLST: No POLST Status: Full Code PD ED PE EXPANDED - General General: Alert, Well developed/nourished, In Pain - Neck Neck: Supple w/out meningeal sx. No: Adenopathy, No tenderness - Cardiac Cardiac: Regular Rate, Regular Rhythm, Femoral strong equal, Cap refill < 2 sec - Respiratory Respiratory: Clear to ausultation merna. No: Distress, Labored - Abdomen Abdomen: Normal Bowel sounds, Tender to palpation, Guarding. No: Rebound - Derm Derm: Normal color. No: Rash - Extremities Extremities: Normal. No: Deformity, Tenderness - Neuro Neuro: Alert and Oriented X 3, CNII-XII intact - GCS Eye Opening: Spontaneous Motor: Obeys Commands Verbal: Oriented Total: 15 Results - Vitals Vitals: Vital Signs - 24 hr 05/29/20 05/29/20 12:45 12:51 Temperature 37 C Heart Rate 110 H 58 L Respiratory 20 14 Rate Blood Pressure 157/106 H 110/78 O2 Saturation 100 99 Oxygen O2 Source Room air - Labs Labs: Laboratory Tests 05/29/20 05/29/20 13:17 13:17 WBC 11.1 H RBC 3.88 L Hgb 13.3 L Hct 38.6 L MCV 99.5 H MCH 34.3 H MCHC 34.5 RDW 12.9 Plt Count 202 MPV 9.6 Neut # (Auto) 7.5 H Lymph # (Auto) 2.0 [place]borne # (Auto) 0.8 Eos # (Auto) 0.7 Baso # (Auto) 0.0 Absolute Nucleated RBC 0.00 Nucleated RBC % 0.0 Sodium 138 Potassium 2.9 L Chloride 98 L Carbon Dioxide 28 Anion Gap 12.0 BUN 5 L Creatinine 0.6 Estimated GFR (MDRD) 146 Glucose 131 H Calcium 9.4 Total Bilirubin 0.9 AST 31 ALT 25 Alkaline Phosphatase 88 Total Protein 7.1 Albumin 3.5 Globulin 3.6 Albumin/Globulin Ratio 1.0 Lipase 440 H Ethyl Alcohol < 5.0 PD MEDICAL DECISION MAKING - ED course Complexity details: reviewed old records, reviewed results, re-evaluated patient, considered differential, d/w patient ED course: 44-year-old male with a history of alcoholic pancreatitis returns to the emergency department today with uncontrolled epigastric pain. He unfortunately signed out of the hospital 05/27/2020 AMA. Since being discharged from the hospital he has continued to abstain from alcohol but he had very poor pain control when he arrived here in the ER. His labs were reevaluated and reassuringly his has decreased to less than 500. His liver function tests had also improved. He did have some mild leukocytosis but it is essentially unchanged from 2 days ago. I did note moderate hypokalemia with a potassium of 2.9. IV potassium replacement was instituted here in the emergency department. I did give him 2 L of IV fluids as well as 1 mg of Dilaudid and some Zofran. Following the administration of these medications patient was now free of nausea and vomiting and able to tolerate oral liquids. His pain was also markedly improved. At this time it appears that he is stable for discharge from the emergency department. I will recommend that he continue clear liquids at home until his pain is markedly better and then to start advancing his diet slowly. He is to continue to abstain from alcohol and he seems committed to this process. I will prescribe a limited amount of Librium to help him maintain his sobriety. I have encouraged him to schedule close follow-up with his primary care provider. Emergent return return precautions were discussed Departure - Departure Disposition: 01 Home, Self Care Clinical Impression: Acute alcoholic pancreatitis Qualifiers: Acute pancreatitis complication: unspecified Qualified Code(s): K85.20 - Alcohol induced acute pancreatitis without necrosis or infection Condition: Stable Record reviewed to determine appropriate education?: Yes Instructions: ED Pancreatitis Follow-Up: Carolin Chung ARNP, [facility] [Primary Care Provider] - Prescriptions: chlordiazePOXIDE [Librium] 25 mg PO Q6H PRN #20 capsule PRN Reason: Alcohol Withdrawal Hydrocodone/Acetaminophen [Tillman 5-325 Tablet] 1 each PO BID PRN #15 tablet PRN Reason: Pain Ondansetron Odt [Zofran] 4 mg TL Q6H PRN #15 tablet PRN Reason: Nausea / Vomiting Comments: Anjum it looks as though your pancreatitis is actually improving. Your lipase is down to 480 today. Over the next 2 to 3 days please eat and drink clear liquids only. This should include broth, clear sodas, twin usha or Jell-O. As your pain is improving it is okay to start eating simple foods. Utilize the brat diet as we discussed. Bananas, rice, applesauce, toast. I have prescribed a very limited amount of hydrocodone to help with your pain. Do not take unless absolutely necessary. I have also prescribed some Zofran to help with nausea and vomiting. Finally it is critical that you continue to abstain from any further alcohol use. Continuing to drink will cause you to have chronic pancreatitis. I have prescribed some Librium. It is okay to take 1 tablet every 6 hours as needed for withdrawal symptoms. However do not use if you are not having alcohol withdrawal. Please schedule a follow-up appointment with your primary care provider within the next week. If you develop suddenly severe or different pain, have uncontrolled vomiting or fevers please return to the emergency department
[2020-05-29 13:28] LABS: BASOPHILS % (AUTO) 0.4 %; EOSINOPHILS # (AUTO) 0.7 10^3/uL (0.0-0.7); EOSINOPHILS % (AUTO) 6.4 %; HGB - HEMOGLOBIN 13.3 g/dL (14.0-18.0); LYMPHOCYTES % (AUTO) 17.7 %; MEAN CORPUSCULAR HEMOGLOBIN 34.3 pg (27.0-31.0); MEAN CORPUSCULAR HGB CONC 34.5 g/dL (32.0-36.0); MEAN CORPUSCULAR VOLUME 99.5 fL (80.0-94.0); MEAN PLATELET VOLUME 9.6 fL (7.4-11.4); MONOCYTES # (AUTO) 0.8 10^3/uL (0.0-1.0); MONOCYTES % (AUTO) 7.4 %; NEUTROPHILS # (AUTO) 7.5 10^3/uL (1.5-6.6); NEUTROPHILS % (AUTO) 67.7 %; PLT - PLATELET COUNT 202 10^3/uL (130-450); RED BLOOD COUNT 3.88 10^6/uL (4.70-6.10); RED CELL DISTRIBUTION WIDTH 12.9 % (12.0-15.0); WHITE BLOOD COUNT 11.1 x10^3/uL (4.8-10.8)
[2020-05-29 13:46] LABS: ALBUMIN 3.5 g/dL (3.2-5.5); ALKALINE PHOSPHATASE 88 IU/L (42-121); ALT ALANINE AMINOTRANSFERASE 25 IU/L (10-60); AST ASPARTATE AMINOTRANSFERASE 31 IU/L (10-42); BUN - BLOOD UREA NITROGEN 5 mg/dL (6-20); CALCIUM 9.4 mg/dL (8.5-10.3); CARBON DIOXIDE - CO2 28 mmol/L (21-32); CHLORIDE 98 mmol/L (101-111); CREATININE 0.6 mg/dL (0.6-1.2); GLUCOSE 131 mg/dL (70-100); SODIUM 138 mmol/L (135-145)
[2020-05-29 13:47] LABS: BILIRUBIN,TOTAL 0.9 mg/dL (0.2-1.0); TOTAL PROTEIN 7.1 g/dL (6.7-8.2)
[2020-05-29] MEDS ORDERED: POTASSIUM CHLOR 10 MEQ/100 ML 10 MEQ/100 ML BAG IV STA (13:54)
[2020-05-29 14:03] LABS: LIPASE 440 U/L (22-51)
[2020-05-29] MEDS ORDERED: ONDANSETRON 4 MG/2 ML VIAL IVP STA (14:21)
[2020-05-29 15:54] VITALS: BP 148/108
[2020-05-29 16:01] LABS: GLUCOSE, URINE (UA) NEGATIVE (NEGATIVE); KETONES,URINE (UA) NEGATIVE (NEGATIVE); LEUKOCYTE ESTERASE, URINE NEGATIVE (NEGATIVE); NITRITE,URINE NEGATIVE (NEGATIVE); OCCULT BLOOD,URINE NEGATIVE (NEGATIVE); PROTEIN,URINE NEGATIVE (NEGATIVE); UROBILINOGEN,URINE 1 (NORMAL) E.U./dL (NORMAL)
[2020-05-29 16:08] LABS: BILIRUBIN,URINE NEGATIVE (NEGATIVE); CLARITY,URINE CLEAR (CLEAR); ICTOTEST,URINE NEGATIVE
== END 2020-05-29 15:54 | disposition home or self-care (01) ==
LOC: ED 12:29
DX: K85.20 Alcohol induced acute pancreatitis without necrosis or infection (principal); E87.6 Hypokalemia; F17.200 Nicotine dependence, unspecified, uncomplicated
CPT/HCPCS: 36415; 80053; 80320; 81003; 83690; 85025; 96365; 96375; 99284; J1170; 81001; 87086

== ENCOUNTER 2020-07-13 21:55 | Emergency (ER) | payer MEDICAID ==
[2020-07-13 22:23] LABS: BASOPHILS # (AUTO) 0.1 10^3/uL (0.0-0.1); BASOPHILS % (AUTO) 0.9 %; EOSINOPHILS # (AUTO) 0.4 10^3/uL (0.0-0.7); EOSINOPHILS % (AUTO) 3.6 %; HGB - HEMOGLOBIN 15.7 g/dL (14.0-18.0); LYMPHOCYTES # (AUTO) 5.5 10^3/uL (1.5-3.5); LYMPHOCYTES % (AUTO) 49.3 %; MEAN CORPUSCULAR HEMOGLOBIN 35.2 pg (27.0-31.0); MEAN CORPUSCULAR HGB CONC 34.4 g/dL (32.0-36.0); MEAN CORPUSCULAR VOLUME 102.5 fL (80.0-94.0); MEAN PLATELET VOLUME 8.4 fL (7.4-11.4); MONOCYTES # (AUTO) 0.7 10^3/uL (0.0-1.0); MONOCYTES % (AUTO) 6.6 %; NEUTROPHILS # (AUTO) 4.4 10^3/uL (1.5-6.6); NEUTROPHILS % (AUTO) 39.2 %; PLT - PLATELET COUNT 370 10^3/uL (130-450); RED BLOOD COUNT 4.46 10^6/uL (4.70-6.10); RED CELL DISTRIBUTION WIDTH 13.2 % (12.0-15.0); WHITE BLOOD COUNT 11.1 x10^3/uL (4.8-10.8)
[2020-07-13 22:39] LABS: ACETAMINOPHEN < 10 ug/mL (10-30); ALBUMIN 4.2 g/dL (3.2-5.5); ALBUMIN/GLOBULIN RATIO 1.4 (1.0-2.2); ALKALINE PHOSPHATASE 116 IU/L (42-121); ALT ALANINE AMINOTRANSFERASE 53 IU/L (10-60); AST ASPARTATE AMINOTRANSFERASE 82 IU/L (10-42); BILIRUBIN,TOTAL 0.7 mg/dL (0.2-1.0); BUN - BLOOD UREA NITROGEN 6 mg/dL (6-20); CALCIUM 9.2 mg/dL (8.5-10.3); CARBON DIOXIDE - CO2 24 mmol/L (21-32); CHLORIDE 106 mmol/L (101-111); CREATININE 0.8 mg/dL (0.6-1.2); GLUCOSE 110 mg/dL (70-100); LIPASE 145 U/L (22-51); SALICYLATE < 6.0 mg/dL; SODIUM 145 mmol/L (135-145); TOTAL PROTEIN 7.3 g/dL (6.7-8.2)
[2020-07-13 22:42] LABS: PLATELET MORPHOLOGY NORMAL APPEARANCE (NORMAL); RBC MORPHOLOGY (MULTIPLE) 1+ ANISOCYTOSIS (NORMAL)
[2020-07-13 22:43] LABS: PLATELET ESTIMATE, MANUAL NORMAL (130-450,000) (NORMAL)
[2020-07-14 02:21] LABS: BILIRUBIN,URINE NEGATIVE (NEGATIVE); GLUCOSE, URINE (UA) NEGATIVE (NEGATIVE); KETONES,URINE (UA) NEGATIVE (NEGATIVE); LEUKOCYTE ESTERASE, URINE NEGATIVE (NEGATIVE); MUDS CUTOFF CONCENTRATIONS CUTOFF CONC BELOW:; NITRITE,URINE NEGATIVE (NEGATIVE); OCCULT BLOOD,URINE NEGATIVE (NEGATIVE); PH,URINE 5.5 PH (5.0-7.5); PROTEIN,URINE NEGATIVE (NEGATIVE); UROBILINOGEN,URINE 0.2 (NORMAL) E.U./dL (NORMAL)
[2020-07-14 02:22] LABS: CLARITY,URINE CLEAR (CLEAR)
[2020-07-14 02:32] LABS: AMPHETAMINE SCREEN,URINE NEGATIVE (NEGATIVE); BENZODIAZEPINES SCREEN, URINE POSITIVE (NEGATIVE); COCAINE SCREEN URINE NEGATIVE (NEGATIVE); METHADONE SCREEN, URINE NEGATIVE (NEGATIVE); METHAMPHETAMINES SCREEN, URINE NEGATIVE (NEGATIVE); OPIATE SCREEN, URINE NEGATIVE (NEGATIVE); OXYCODONE SCREEN, URINE NEGATIVE (NEGATIVE); PROPOXYPHENE SCREEN, URINE NEGATIVE (NEGATIVE); TRICYCLIC ANTIDEPRESSANT,URINE NEGATIVE (NEGATIVE)
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
[2020-07-14] MEDS ORDERED: chlordiazePOXIDE 25 MG CAPSULE PO STA (06:12)
[2020-07-14] MEDS ORDERED: DEXAMETHASONE 10 MG/ML VIAL IVP STA (13:58)
[2020-07-14] MEDS ORDERED: LORazepam 2 MG/ML VIAL IVP STA (13:58)
[2020-07-14] MEDS ORDERED: FOLIC ACID INJ 1 MG, THIAMINE INJ 100 MG, MAGNESIUM SULFATE 2 GM, MULTIVITAMIN 10 ML in... IV STA ×5 (13:58)
--- NOTE | 2020-07-14 20:32 | ED Physician Documentation ---
ED Addendum - Addendum Addendum: 07/14/20 20:31 Patient stable on my shift, evaluated by the DCR who plans to detain. She requested a Covid test and an EKG. Twelve-lead EKG done at 2021 hrs. disclosed a sinus tachycardia with a rate of 106 with potential left atrial enlargement. No other or acute appearing abnormalities. No prolonged QTC. 07/14/20 22:[address] Moreno at shift change pending DCR placement.
[2020-07-14 21:07] LABS: C. PNEUMONIAE- RESP PCR PANEL NOT DETECTED
[2020-07-14] MEDS ORDERED: IBUPROFEN 800 MG TABLET PO STA (21:09)
[2020-07-14] MEDS ORDERED: LORazepam 1 MG TABLET PO STA (21:18)
--- NOTE | 2020-07-14 21:53 | ED Physician Documentation ---
ED Addendum - Addendum Addendum: 07/14/20 21:52 Patient endorsed to me by Dr. Lobato, still awaiting involuntary psychiatric placement. 07/15/20 01:01 Patient has placement, Bela signed. will leave tomorrow morning. d/w patient 07/15/20 02:36
[2020-07-14] MEDS ORDERED: KETOROLAC 15 MG/ML VIAL IVP STA (23:26)
[2020-07-15] MEDS ORDERED: chlordiazePOXIDE 25 MG CAPSULE PO STA ×2 (00:02→07:02)
[2020-07-15] MEDS ORDERED: diazePAM INJ 5 MG/ML SYRINGE IVP STA (00:03)
[2020-07-15] MEDS ORDERED: NICOTINE 14 MG PATCH TOP STA (09:38)
[2020-07-15 09:47] VITALS: BP 159/102
== END 2020-07-15 09:40 ==
LOC: ED 21:55
DX: R45.851 Suicidal ideations (principal); F10.129 Alcohol abuse with intoxication, unspecified; F17.200 Nicotine dependence, unspecified, uncomplicated; Z20.828 Contact with and (suspected) exposure to other viral communicable diseases
CPT/HCPCS: 0202U; 36415; 80053; 80306; 80307; 80320; 80329; 81003; 83690; 84443; 85025; 93005; 96365; 96375; 99285; A9270; J2060; J3411; J8499; 81001; 87086

== ENCOUNTER 2021-05-01 12:24 | Emergency (ER) | payer MEDICAID ==
[2021-05-01 12:41] VITALS: BP 148/100
--- NOTE | 2021-05-01 13:47 | ED Physician Documentation ---
History of Present Illness - Stated complaint Stated Complaint: BILAT LEG PAIN - Chief complaint Chief Complaint: Ext Problem - Additonal information Additional information: 45-year-old male presents emergency department for evaluation of worsening bilateral leg pain. This has been progressively worse over the last 5 days since he ran out of his gabapentin. He reports the pain as constant throbbing and burning. He had been told by his primary to take 600 mg twice daily which is what he was doing but the prescription ran out early. [facility] refuses to fill until May. He has had no falls or trauma. No fevers. He is diagnosed with restless leg syndrome. The gabapentin typically helps manage this. He also has a history of alcohol abuse. He has not been drinking. He is required by the state to undergo mandatory home breathalyzer test. Review of Systems Constitutional: reports: Myalgias (bilateral legs). denies: Fever, Chills Eyes: reports: Reviewed and negative Ears: reports: Reviewed and negative Nose: reports: Reviewed and negative Throat: reports: Reviewed and negative Cardiac: reports: Reviewed and negative Respiratory: reports: Reviewed and negative GI: reports: Reviewed and negative : reports: Reviewed and negative Skin: reports: Reviewed and negative Musculoskeletal: reports: Extremity pain (bilateral leg) Neurologic: reports: Reviewed and negative PD PAST MEDICAL HISTORY - Past Medical History Cardiovascular: None Respiratory: None Neuro: None Endocrine/Autoimmune: None GI: Pancreatitis, Other : None Psych: Anxiety Musculoskeletal: Chronic back pain Derm: Other - Past Surgical History Past Surgical History: No - Present Medications Home Medications: Ambulatory Orders Medication Instructions Recorded Confirmed Dicyclomine [Bentyl] 10 mg PO PRN PRN 11/19/19 05/26/20 Omeprazole 20 mg PO DAILY 11/19/19 05/26/20 Magnesium Oxide [Mag Ox] 400 mg PO DAILYWM #14 tablet 11/28/19 05/26/20 Potassium Chloride 20 meq PO DAILY #14 tablet.er 11/28/19 05/26/20 chlordiazePOXIDE [Librium] 25 mg PO Q6H PRN #4 capsule 05/27/20 Hydrocodone/Acetaminophen [[place] 1 each PO BID PRN #15 tablet 05/29/20 5-325 Tablet] Ondansetron Odt [Zofran] 4 mg TL Q6H PRN #15 tablet 11/05/20 chlordiazePOXIDE [Librium] 25 mg PO Q6H PRN #20 capsule 05/29/20 Gabapentin [Neurontin] 300 mg PO BID #60 cap 05/01/21 - Allergies Allergies/Adverse Reactions: Allergies Allergy/AdvReac Type Severity Reaction Status Date / Time No Known Drug Allergies Allergy Verified 07/13/20 21:58 - Social History Does the pt smoke?: Yes Smoking Status: Current every day smoker Does the pt drink ETOH?: Yes Does the pt have substance abuse?: No - Immunizations Immunizations are current?: Yes - POLST Patient has POLST: No POLST Status: Full Code PD ED PE NORMAL - General General: Alert and oriented X 3, No acute distress - Neck Neck: Supple, no meningeal sign - Cardiac Cardiac: RRR, No murmur - Respiratory Respiratory: Clear bilaterally - Abdomen Abdomen: Normal bowel sounds, Soft, Non tender, Non distended - Back Back: No CVA TTP, No spinal TTP - Derm Derm: Normal color, Warm and dry, No rash - Extremities Extremities: No deformity, No tenderness to palpate (Normal gait. Mild tenderness elicited with deep palpation of both the anterior and posterior thighs. No swelling or erythema noted.) - Neuro Neuro: Alert and oriented X 3, student life coordinator 2-12 intact, No motor deficit Eye Opening: Spontaneous Motor: Obeys Commands Verbal: Oriented GCS Score: 15 Results - Vitals Vitals: Vital Signs - 24 hr 05/01/21 12:37 Temperature 36.8 C Heart Rate 87 Respiratory 16 Rate Blood Pressure 148/100 H O2 Saturation 98 Oxygen O2 Source Room air PD MEDICAL DECISION MAKING - ED course Complexity details: re-evaluated patient, considered differential, d/w patient ED course: 45-year-old male who has a history of restless leg syndrome presents the emergency department requesting a refill of his gabapentin which [facility] to fill early. He had been advised to take 600 mg twice daily. The prescription was only for 300 mg twice daily. Since being out of gabapentin he has been having increased burning pain in his lower extremities. No fevers or swelling to suggest infection. No new falls or trauma thus I will defer imaging. We will write a prescription for gabapentin 600 mg twice daily and send to [facility] in [place]. Patient is scheduled to follow-up with his PCP within the next few weeks. Departure - Departure Disposition: 01 Home, Self Care Clinical Impression: Restless leg syndrome Condition: Stable Record reviewed to determine appropriate education?: Yes Prescriptions: Gabapentin [Neurontin] 300 mg PO BID #60 cap Comments: Anjum a new prescription for gabapentin has been electronically sent to the [facility] in [place]. Please continue to follow-up with the primary care providers as you are already scheduled. In the future they may need to change the way your gabapentin is dosed. The emergency department will not be able to refill this again in the future.
== END 2021-05-01 13:55 | disposition home or self-care (01) ==
LOC: ED 12:24
DX: G25.81 Restless legs syndrome (principal); Z76.0 Encounter for issue of repeat prescription; F17.200 Nicotine dependence, unspecified, uncomplicated
CPT/HCPCS: 99282; 99284

== ENCOUNTER 2022-02-23 11:29 | Inpatient (IN) | payer MEDICAID ==
--- OUTSIDE RECORDS SUMMARY | 2022-02-23 11:47 | EXTERNAL MEDICAL SUMMARY RPT | Continuity of Care Document ---
:1975 Author Organization [facility] Address [address] [place] [address] Phone Allergies No information. Encounters No information. Functional Status No information. Immunizations No information. Medications date description facility [phone] propranolol [facility] [place] [phone] trazodone [facility] [phone] trazodone [facility] [place] [phone] propranolol [facility] [place] Problems No information. Procedures No information. Results/Labs No information. Social History No information. Vital Signs No information.
[2022-02-23 12:00] LABS: BASOPHILS # (AUTO) 0.1 10^3/uL (0.0-0.1); BASOPHILS % (AUTO) 0.5 %; EOSINOPHILS # (AUTO) 0.3 10^3/uL (0.0-0.7); EOSINOPHILS % (AUTO) 1.4 %; HCT - HEMATOCRIT 47.7 % (42.0-52.0); HGB - HEMOGLOBIN 16.7 g/dL (14.0-18.0); LYMPHOCYTES % (AUTO) 16.3 %; MEAN CORPUSCULAR HEMOGLOBIN 34.2 pg (27.0-31.0); MEAN CORPUSCULAR VOLUME 97.7 fL (80.0-94.0); MEAN PLATELET VOLUME 9.2 fL (7.4-11.4); MONOCYTES # (AUTO) 1.1 10^3/uL (0.0-1.0); MONOCYTES % (AUTO) 5.9 %; NEUTROPHILS % (AUTO) 75.3 %; PLT - PLATELET COUNT 324 10^3/uL (130-450); RED BLOOD COUNT 4.88 10^6/uL (4.70-6.10); RED CELL DISTRIBUTION WIDTH 12.5 % (12.0-15.0); WHITE BLOOD COUNT 18.5 x10^3/uL (4.8-10.8)
[2022-02-23 12:03] LABS: BILIRUBIN,URINE NEGATIVE (NEGATIVE); GLUCOSE, URINE (UA) NEGATIVE (NEGATIVE); KETONES,URINE (UA) NEGATIVE (NEGATIVE); LEUKOCYTE ESTERASE, URINE NEGATIVE (NEGATIVE); NITRITE,URINE NEGATIVE (NEGATIVE); OCCULT BLOOD,URINE NEGATIVE (NEGATIVE); PROTEIN,URINE NEGATIVE (NEGATIVE); UROBILINOGEN,URINE 0.2 (NORMAL) E.U./dL (NORMAL)
[2022-02-23 12:04] LABS: CLARITY,URINE CLEAR (CLEAR)
[2022-02-23 12:26] LABS: ALBUMIN 4.4 g/dL (3.2-5.5); ALBUMIN/GLOBULIN RATIO 1.3 (1.0-2.2); BILIRUBIN,TOTAL 0.7 mg/dL (0.2-1.0); CALCIUM 9.7 mg/dL (8.5-10.3); CREATININE 0.8 mg/dL (0.6-1.2); POTASSIUM 4.2 mmol/L (3.5-5.0); TOTAL PROTEIN 7.7 g/dL (6.7-8.2)
[2022-02-23] MEDS ORDERED: SODIUM CHLORIDE 0.9% 1,000 ML IV ONE (12:41)
[2022-02-23] MEDS ORDERED: MORPHINE 2 MG/ML CARPUJECT IVP STA ×2 (12:41→13:12)
--- NOTE | 2022-02-23 12:44 | ED Physician Documentation ---
PD HPI ABD PAIN - Stated complaint Stated Complaint: ABD PX - Chief complaint Chief Complaint: Abd Pain - History obtained from History obtained from: Patient - History of Present Illness Timing - onset: How many months ago (4) - Additional information Additional information: 46-year-old male with history of tobacco abuse, alcohol use disorder presents for midepigastric abdominal pain and back pain. Patient states that he has a history of pancreatitis in the past but this feels much different. Patient states that he has had abdominal pain ever since he had a fall in October. Pain has gradually worsened since that time. Today patient was here for court when he felt abrupt worsening of his pain. Drinks 3-4 cocktails daily, active tobacco user. Review of Systems Ten Systems: 10 systems reviewed and negative Constitutional: denies: Fever, Chills, Myalgias, Fatigue, Weight Loss, Sweats Eyes: denies: Loss of vision, Decreased vision, Photophobia, Discharge Ears: denies: Loss of hearing, Ear pain, Drainage/discharge Nose: denies: Rhinorrhea / runny nose, Congestion, Foreign Body Throat: denies: Dental pain / toothache, Oral lesions / sores, Sore throat, Swollen tonsils Cardiac: denies: Chest pain / pressure, Palpitations, Pedal edema Respiratory: denies: Dyspnea, Cough, Hemoptysis GI: reports: Abdominal Pain. denies: Nausea, Vomiting, Constipation, Diarrhea : denies: Dysuria, Frequency, Hesitancy Skin: denies: Rash, Lesions, Abrasion (s) PD PAST MEDICAL HISTORY - Past Medical History Past Medical History: Yes Cardiovascular: None Respiratory: None Neuro: None Endocrine/Autoimmune: None GI: Pancreatitis, Other : None HEENT: None Psych: Anxiety Musculoskeletal: Chronic back pain, Other (Right lateral hip pain diagnosed as trochanteric tendinitis with previous physical therapy and some anti- inflammatories. Ongoing pain in that area.) Derm: Other - Past Surgical History Past Surgical History: No - Present Medications Home Medications: Ambulatory Orders Medication Instructions Recorded Confirmed Escitalopram Oxalate 20 mg PO DAILY 10/17/21 02/23/22 Gabapentin [Neurontin] 300 mg PO BID 10/17/21 02/23/22 HYDROcod/ACETAM 5/325 [[place] 5/325] 1 ea PO Q6H PRN #18 tablet 10/17/21 Meloxicam [Mobic] 7.5 mg PO BID 15 Days #30 tablet 10/17/21 Propranolol HCl 20 mg PO BID PRN 10/17/21 02/23/22 tiZANidine [Zanaflex] 4 mg PO Q8H PRN #25 tablet 10/17/21 Dicyclomine [Bentyl] 10 mg PO TID PRN 02/23/22 02/23/22 traZODone [Desyrel] 25 mg PO HS PRN 02/23/22 02/23/22 - Allergies Allergies/Adverse Reactions: Allergies Allergy/AdvReac Type Severity Reaction Status Date / Time No Known Drug Allergies Allergy Verified 02/23/22 11:44 - Social History Does the pt smoke?: Yes Smoking Status: Current every day smoker Does the pt drink ETOH?: Yes Does the pt have substance abuse?: No - Immunizations Immunizations are current?: Yes - POLST Patient has POLST: No POLST Status: Full Code PD ED PE NORMAL - Vitals Vital signs reviewed: Yes - General General: Alert and oriented X 3, No acute distress, Well developed/nourished - HEENT HEENT: Atraumatic, PERRL, EOMI, Ears normal, Moist mucous membranes - Neck Neck: Supple, no meningeal sign, No bony TTP, Thyroid normal - Cardiac Cardiac: RRR, No murmur, Strong equal pulses - Respiratory Respiratory: No respiratory distress, Clear bilaterally - Abdomen Abdomen: Soft, Non distended, Other (Midepigastric tenderness to palpation) - Back Back: No CVA TTP, No spinal TTP - Derm Derm: Normal color, Warm and dry, No rash - Extremities Extremities: No deformity, No tenderness to palpate, Normal ROM s pain, No edema - Neuro Neuro: Alert and oriented X 3, product promoter retail pet 2-12 intact, No motor deficit, No sensory deficit, Normal speech - Psych Psych: Normal mood, Normal affect Results - Vitals Vitals: Vital Signs - 24 hr 02/23/22 02/23/22 02/23/22 11:36 11:43 11:44 Temperature 36.0 C L 36.5 C Heart Rate 68 68 74 Respiratory 16 16 12 Rate Blood Pressure 201/112 H 201/112 H 176/109 H O2 Saturation 100 100 100 02/23/22 02/23/22 02/23/22 12:44 13:00 13:30 Temperature Heart Rate 68 68 73 Respiratory 12 14 12 Rate Blood Pressure 167/110 H 160/100 H 180/115 H O2 Saturation 99 100 97 02/23/22 14:00 Temperature 36.5 C Heart Rate 78 Respiratory 22 Rate Blood Pressure 180/112 H O2 Saturation 99 Oxygen O2 Source Room air - Labs Labs: Laboratory Tests 02/23/22 02/23/22 02/23/22 11:50 11:54 11:54 WBC 18.5 H RBC 4.88 Hgb 16.7 Hct 47.7 MCV 97.7 H MCH 34.2 H MCHC 35.0 RDW 12.5 Plt Count 324 MPV 9.2 Neut # (Auto) 14.0 H Lymph # (Auto) 3.0 [place] # (Auto) 1.1 H Eos # (Auto) 0.3 Baso # (Auto) 0.1 Absolute Nucleated RBC 0.00 Nucleated RBC % 0.0 Sodium 138 Potassium 4.2 Chloride 101 Carbon Dioxide 26 Anion Gap 11.0 BUN 8 Creatinine 0.8 Estimated GFR (MDRD) 104 Glucose 141 H Calcium 9.7 Total Bilirubin 0.7 AST 79 H ALT 77 H Alkaline Phosphatase 78 Total Protein 7.7 Albumin 4.4 Globulin 3.3 Albumin/Globulin Ratio 1.3 Lipase 620 H Urine Color YELLOW Urine Clarity CLEAR Urine pH 6.0 Ur Specific [place] 1.025 Urine Protein NEGATIVE Urine Glucose (UA) NEGATIVE Urine Ketones NEGATIVE Urine Occult Blood NEGATIVE Urine Nitrite NEGATIVE Urine Bilirubin NEGATIVE Urine Urobilinogen 0.2 (NORMAL) Ur Leukocyte Esterase NEGATIVE Ur Microscopic Review NOT INDICATED Urine Culture Comments NOT INDICATED PD MEDICAL DECISION MAKING - ED course Complexity details: reviewed old records, reviewed results, re-evaluated patient, considered differential, d/w patient ED course: Patient presenting with severe abdominal pain, previous history of pancreatitis and is still actively drinking daily. Abdomen is soft, however significant tenderness to even light palpation over the upper quadrants of the abdomen. IV pain medications and fluids ordered. CT is significant for extensive inflammation around the pancreas. Lipase is greater than 600. Patient has required numerous doses of pain medications and is still endorsing significant upper quadrant pain. We will admit the patient for presumed acute alcoholic pancreatitis. Departure - Departure Disposition: [facility] DC/Xfer Clinical Impression: Alcohol use disorder Alcoholic pancreatitis Qualifiers: Chronicity: acute Discharge Date/Time: 02/23/22 14:54
[2022-02-23] MEDS ORDERED: HYDROmorphone 1 MG/ML CARPUJECT IVP STA ×2 (13:56→17:51)
--- NOTE | 2022-02-23 14:09 | CT Report ---
PROCEDURE: Abdomen/Pelvis W INDICATIONS: MIDEPIGASTRIC PN, ELEVATED LIPASE CONTRAST: IV CONTRAST: Optiray 320 ml: 100 PO CONTRAST: *NO PO CONTRAST TECHNIQUE: After the administration of IV contrast, 5 mm thick sections acquired from the diaphragms to the symp hysis. 5 mm thick coronal and sagittal reformats were acquired. For radiation dose reduction, the f ollowing was used: automated exposure control, adjustment of mA and/or kV according to patient size. COMPARISON: 10/17/2021, 11/24/2019 FINDINGS: Image quality: Excellent. ABDOMEN: Lung bases: Lung bases are clear. Heart size is normal. Solid organs: Diffuse fatty liver infiltration can be seen. The liver demonstrates normal size. No suspicious liver lesions are detected. A likely liver cyst is again seen within the left liver. The spleen demonstrates normal size. Accessory splenules are seen adjacent to the primary spleen. The pancreas enhances normally, yet there is moderate surrounding inflammatory change. No focal fluid collections are seen to suggest pancreatitis. Gallbladder wall does not appear thickened. Biliary system is non dilated. No adrenal nodules. K idneys demonstrate normal size and enhancement, without hydronephrosis. Peritoneum and bowel: Moderate generalized wall thickening can be seen of the colon, with mild surrou nding inflammatory change. No dilated loops of small bowel are seen. No significant gastric abnormality is seen. Nodes and vessels: No retroperitoneal or mesenteric adenopathy by size criteria. Aorta and inferior vena cava are normal in size. Miscellaneous: A mild fat-containing periumbilical hernia is seen. PELVIS: Genitourinary: Bladder wall thickness is normal. Miscellaneous: No inguinal adenopathy. Mild bilateral inguinal hernias are again seen. Bones: No suspicious bony lesions. No vertebral body compression fractures. Focal L5-S1 degenerati ve change is seen. IMPRESSION: Peripancreatic inflammatory change representing pancreatitis until proven otherwise. Generalized colonic wall thickening can be seen. Please correlate with potential infectious and infla mmatory causes of colitis. No findings of perforation or abscess can be seen. Incidental note is made of: Likely liver cyst Accessory splenules Mild fat-containing periumbilical hernia Focal L5-S1 degenerative change Mild bilateral fat-containing inguinal hernias Reviewed by: Luis Enrique Torres MD on 02/23/2022 2:08 PM PDT Approved by: Luis Enrique Torres MD on 02/23/2022 2:08 PM PDT Station ID: [id number]
[2022-02-23] MEDS ORDERED: SODIUM CHLORIDE 0.9% 1,000 ML IV STA (14:14)
[2022-02-23] MEDS ORDERED: ONDANSETRON ODT 4 MG TABLET TL PRN (14:14)
[2022-02-23] MEDS ORDERED: LACTATED RINGERS 1,000 ML IV ONE (14:15)
--- NOTE | 2022-02-23 14:23 | HISTORY & PHYSICAL EXAMINATION ---
Chief Complaint - Chief Complaint Chief Complaint: Abdominal pain History of Present Illness - Admitted From Admitted From:: Home - History Obtained From Records Reviewed: [facility] History obtained from: Patient, ER Physician, EMR - History of Present Illness HPI Comment/Other: This is a 46-year-old male with a history of pancreatitis due to alcohol consumption, alcohol abuse, anxiety who presents today complaining of abdominal pain. He states he has been going for the past month but has really progressed over the past few days. He reports some nausea but no vomiting. He has had diarrhea over the past month as well with as many as 14 bowel movements a day. He states bowel movements are small in volume but are quite frequent. He reports no dysuria, urgency, hematuria. Most of his pain is in the epigastric region but part of it is also diffuse throughout the abdomen. He has been drinking 4 alcoholic beverages a night for the past 6 months. He states his last drink was yesterday evening. He has quit in the past for a few months but he always returns to drinking to help cope with stress in life and pain due to his right IT band. He is open to quitting alcohol as he knows it is detrimental to his life. He reports no recent antibiotic use. In the emergency department, he was noted to have an elevated white blood cell count of 18,000. His lipase is also elevated at over 600. CT suggested pancreatitis and colitis. Given the above findings, medicine was consulted for admission. History - Past Medical History Cardiovascular: reports: None Respiratory: reports: None Neuro: reports: None Endocrine/Autoimmune: reports: None GI: reports: Pancreatitis : reports: None HEENT: reports: None Psych: reports: Anxiety Musculoskeletal: reports: Chronic back pain, Other (Right lateral hip pain diagnosed as trochanteric tendinitis with previous physical therapy and some anti-inflammatories. Ongoing pain in that area.) Derm: reports: Other - Family & Social History Family History Comment/Other: His father has an unknown known cardiac history. His mother has a history abdominal pain which is believed to be related to dairy products. Living arrangement: At home Living Situation: With family Social History Notes: He lives at home with his and child. He drinks 4 alcoholic beverages a night. He has been drinking for nearly 30 years but has quit at times for a few months. He has not been eating for about 6 months since he last quit. He does smoke about a pack a day for nearly 30 years as well. He no longer smokes marijuana. He denies any illicit drug use. - POLST Patient has POLST: No POLST Status: Full Code Meds/Allgy - Home Medications Home Medications: Ambulatory Orders Medication Instructions Recorded Confirmed Escitalopram Oxalate 20 mg PO DAILY 10/17/21 10/17/21 Gabapentin [Neurontin] 300 mg PO BID 10/17/21 10/17/21 HYDROcod/ACETAM 5/325 [[place] 5/325] 1 ea PO Q6H PRN #18 tablet 10/17/21 Meloxicam [Mobic] 7.5 mg PO BID 15 Days #30 tablet 10/17/21 Propranolol HCl 20 mg PO BID PRN 10/17/21 10/17/21 tiZANidine [Zanaflex] 4 mg PO Q8H PRN #25 tablet 10/17/21 - Allergies Allergies/Adverse Reactions: Allergies Allergy/AdvReac Type Severity Reaction Status Date / Time No Known Drug Allergies Allergy Verified 02/23/22 11:44 Review of Systems - Constitutional Constitutional: reports: Poor appetite, Weight gain. denies: Fever, Chills - Cardiovascular Cariovascular: denies: Chest pain, Exertional dyspnea, Decr. exercise tolerance - Respiratory Respiratory: denies: Cough, SOB at rest - Gastrointestinal Gastrointestinal: reports: Abdominal pain, Diarrhea, Change in bowel habits, Nausea, Bloating, Poor appetite. denies: Constipation, Vomiting - Genitourinary Genitourinary: denies: Dysuria, Frequency, Urgency, Hematuria - Musculoskeletal Musculoskeletal: reports: Stiffness, Joint pain - Integumentary Integumentary: denies: Rash - Neurological Neurological: denies: General weakness, Focal weakness - Hematologic/Lymphatic Hematologic/Lymphatic: denies: Bleeding tendencies - All Other Systems All Other Systems: reports: Reviewed and negative Prior Level of Functionality: He is independent with his ADLs. Exam - Vital Signs Reviewed Vital Signs: Yes Vital Signs: Vital Signs x48h Temp Pulse Resp BP Pulse Ox 02/23/22 14:00 36.5 C 78 22 180/112 H 99 02/23/22 13:30 73 12 180/115 H 97 02/23/22 13:00 68 14 160/100 H 100 02/23/22 12:44 68 12 167/110 H 99 02/23/22 11:44 74 12 176/109 H 100 02/23/22 11:43 36.5 C 68 16 201/112 H 100 02/23/22 11:36 36.0 C L 68 16 201/112 H 100 - Physical Exam General Appearance: positive: Alert, Mild distress Eyes Bilateral: positive: Normal inspection, Conjunctivae nml ENT: positive: Dry mucous membranes. negative: No signs of dehydration Neck: positive: Nml inspection Respiratory: positive: No respiratory distress. negative: Wheezes, Rales Cardiovascular: positive: Regular rate & rhythm, No murmur. negative: Tachycardia Abdomen: positive: Tenderness (Diffuse tenderness although most prominent in the epigastric region.), Abnml bowel sounds (Hyperactive). negative: No distention, Guarding, Rebound Skin: positive: Warm, Dry Extremities: positive: No pedal edema Neurologic/Psychiatric: positive: Motor nml. negative: Disoriented to person, D isoriented to place, Disoriented to time Conclusion/Plan - Problem List (1) Alcoholic pancreatitis Conclusion/Plan: His presentation is consistent with alcoholic pancreatitis. CT of the abdomen pelvis shows peripancreatic edema and his lipase is elevated greater than 600. White blood cell count is also elevated at 18,000. We will admit him under inpatient status. We will give him another liter of lactated Ringer's and start him on maintenance IV fluids at 200 mL an hour. N.p.o. at this time but we will look to start clear liquid diet in the morning if his pain improves. We will use Dilaudid as needed for pain control as well as Toradol as needed. Will not check lipid panel this was checked during prior admissions for pancreatitis and was within normal limits so doubt he would have hypertriglyceridemia now as a cause of his pancreatitis. Trend lipase and check amylase in the morning. We did discuss that he may also have potential evidence of chronic pancreatitis and we discussed the importance of alcohol cessation. Qualifiers: Chronicity: acute (2) Colitis Conclusion/Plan: CT abdomen pelvis is concerning for colitis he does report diarrhea over the past month. Although no recent antibiotic use, the concern is for C. difficile. We will check a C. difficile PCR is negative we will check stool cultures. (3) Alcohol use disorder Conclusion/Plan: He does admit to ongoing alcohol use and drinks 4 beverages a night. We discussed the importance of alcohol cessation given risk of cirrhosis. He has gone through withdrawal in the past which led to a prolonged hospitalization. We will start him on thiamine and monitor for evidence of withdrawal. Social work has been consulted as he is open to treatment options. (4) Transaminitis Conclusion/Plan: His LFTs are mildly elevated likely secondary to his alcohol consumption. We will repeat liver panel in the morning. (5) Anxiety Conclusion/Plan: Resume his home medications. - Lab Results Lab results reviewed: Yes Fish Bones: 02/23/22 11:54 02/23/22 11:54 - Diagnostic Imaging Results Diagnostic Imaging Results: positive: Final report reviewed Core Measures - Anticipated LOS I expect patient to be DC'd or transferred within 96 hours.: Yes - Issues Hospital Issues and Management Plan: 46-year-old male with alcohol use who presents abdominal pain found to have alcoholic pancreatitis. Will admit for further management. - DVT/VTE - Prophylaxis VTE/DVT Device ordered at admit?: Yes VTE/DVT Prophylaxis med ordered at admit?: Yes
[2022-02-23] MEDS ORDERED: THIAMINE 100 MG TABLET PO SCH (15:03)
[2022-02-23] MEDS: HYDROmorphone 0.5 MG/0.5 ML SYRINGE IVP PRN ×4 (15:15→22:09)
[2022-02-23] MEDS: oxyCODONE 5 MG TABLET PO PRN ×2 (15:31→23:39)
[2022-02-23] MEDS: KETOROLAC 15 MG/ML VIAL IVP PRN ×2 (15:31→22:13)
[2022-02-23] MEDS: SODIUM CHLORIDE FLUSH 0.9% 10 ML SYRINGE IVP PRN ×4 (15:32→22:13)
[2022-02-23] MEDS: THIAMINE 100 MG TABLET PO SCH (16:07)
[2022-02-23] MEDS: LACTATED RINGERS 1,000 ML IV SCH ×2 (16:45→21:51)
[2022-02-23] MEDS: SODIUM CHLORIDE FLUSH 0.9% 10 ML SYRINGE IVP SCH ×2 (17:41→23:39)
[2022-02-23] MEDS: NICOTINE 14 MG PATCH TOP SCH (18:40)
[2022-02-23] MEDS: ONDANSETRON 4 MG/2 ML VIAL IVP PRN (19:44)
[2022-02-23] MEDS: ACETAMINOPHEN 325 MG TABLET PO PRN (23:39)
[2022-02-24] MEDS: HYDROmorphone 0.5 MG/0.5 ML SYRINGE IVP PRN ×7 (00:48→19:38)
[2022-02-24] MEDS: LACTATED RINGERS 1,000 ML IV SCH ×4 (02:21→19:30)
[2022-02-24] MEDS: ONDANSETRON 4 MG/2 ML VIAL IVP PRN (03:53)
[2022-02-24 04:53] LABS: BASOPHILS # (AUTO) 0.1 10^3/uL (0.0-0.1); BASOPHILS % (AUTO) 0.4 %; EOSINOPHILS # (AUTO) 0.6 10^3/uL (0.0-0.7); EOSINOPHILS % (AUTO) 5.6 %; HCT - HEMATOCRIT 41.6 % (42.0-52.0); HGB - HEMOGLOBIN 14.2 g/dL (14.0-18.0); LYMPHOCYTES # (AUTO) 2.3 10^3/uL (1.5-3.5); LYMPHOCYTES % (AUTO) 20.5 %; MEAN CORPUSCULAR HEMOGLOBIN 33.9 pg (27.0-31.0); MEAN CORPUSCULAR HGB CONC 34.1 g/dL (32.0-36.0); MEAN CORPUSCULAR VOLUME 99.3 fL (80.0-94.0); MEAN PLATELET VOLUME 8.8 fL (7.4-11.4); MONOCYTES # (AUTO) 0.8 10^3/uL (0.0-1.0); MONOCYTES % (AUTO) 7.3 %; NEUTROPHILS # (AUTO) 7.4 10^3/uL (1.5-6.6); NEUTROPHILS % (AUTO) 65.7 %; PLT - PLATELET COUNT 229 10^3/uL (130-450); RED BLOOD COUNT 4.19 10^6/uL (4.70-6.10); RED CELL DISTRIBUTION WIDTH 12.5 % (12.0-15.0); WHITE BLOOD COUNT 11.2 x10^3/uL (4.8-10.8)
[2022-02-24 05:21] LABS: ALBUMIN 3.3 g/dL (3.2-5.5); BILIRUBIN,DIRECT 0.2 mg/dL (0.1-0.5); BILIRUBIN,TOTAL 0.9 mg/dL (0.2-1.0); CALCIUM 8.5 mg/dL (8.5-10.3); CREATININE 0.7 mg/dL (0.6-1.2); POTASSIUM 3.7 mmol/L (3.5-5.0); TOTAL PROTEIN 5.6 g/dL (6.7-8.2)
[2022-02-24] MEDS: oxyCODONE 5 MG TABLET PO PRN ×3 (06:07→21:50)
[2022-02-24] MEDS: ACETAMINOPHEN 325 MG TABLET PO PRN ×3 (06:07→21:49)
[2022-02-24] MEDS: KETOROLAC 15 MG/ML VIAL IVP PRN ×2 (06:39→19:44)
--- NOTE | 2022-02-24 07:27 | PROVIDER PROGRESS NOTE ---
Subjective - Prog Note Date Prog Note Date: 02/24/22 - Subjective Subjective: He feels a little better compared to yesterday. Yesterday he tried clears for dinner but he had worsening abdominal pain. This morning he woke up and had an episode of emesis although he states it was a small amount. He then had clears for breakfast which was able to keep down and he did not have worsening pain with that. He states he does feel little nauseous right now. His pain overall is improved compared to yesterday but still a moderate amount. He has not had a bowel movement since admission. Current Medications - Current Medications Current Medications: Active Medications Acetaminophen (Acetaminophen 325 Mg Tablet) 650 mg PO Q4HR PRN PRN Reason: Pain 1 to 4, or Fever Last Admin: 02/24/22 06:07 Dose: 650 mg Enoxaparin Sodium (Enoxaparin 40 Mg/0.4 Ml Syringe) 40 mg SUBQ DAILY [facility] Last Admin: 02/24/22 08:17 Dose: 40 mg Hydromorphone HCl (Hydromorphone 0.5 Mg/0.5 Ml Syringe) 1 mg IVP Q2H PRN PRN Reason: Pain 8 to 10 Last Admin: 02/24/22 08:18 Dose: 1 mg Lactated Ringer's (Lr) 1,000 mls @ 200 mls/hr IV .Q5H [facility] Last Admin: 02/24/22 08:16 Dose: 200 mls/hr Ketorolac Tromethamine (Ketorolac 15 Mg/Ml Vial) 15 mg IVP Q6HR PRN PRN Reason: PAIN Stop: 02/28/22 14:16 Last Admin: 02/24/22 06:39 Dose: 15 mg Nicotine (Nicotine 14 Mg Patch) 1 patch TOP DAILY [facility] Last Admin: 02/24/22 08:17 Dose: 1 patch Ondansetron HCl (Ondansetron Odt 4 Mg Tablet) 4 mg TL Q6HR PRN PRN Reason: Nausea / Vomiting Ondansetron HCl (Ondansetron 4 Mg/2 Ml Vial) 4 mg IVP Q6HR PRN PRN Reason: Nausea / Vomiting Last Admin: 02/24/22 03:53 Dose: 4 mg Oxycodone HCl (Oxycodone 5 Mg Tablet) 5 mg PO Q4HR PRN PRN Reason: Pain 5 to 7 Last Admin: 02/24/22 06:07 Dose: 5 mg Sodium Chloride (Sodium Chloride Flush 0.9% 10 Ml Syringe) 10 ml IVP PRN PRN PRN Reason: NEEDED PER PROVIDER ORDERS Last Admin: 02/23/22 22:13 Dose: 20 ml Sodium Chloride (Sodium Chloride Flush 0.9% 10 Ml Syringe) 10 ml IVP 0100,0900,1700 [facility] Last Admin: 02/24/22 08:17 Dose: 10 ml Thiamine HCl (Thiamine 100 Mg Tablet) 300 mg PO DAILY [facility] Last Admin: 02/24/22 08:17 Dose: 300 mg Escitalopram Oxalate 20 mg PO DAILY 10/17/21 Gabapentin [Neurontin] 300 mg PO BID 10/17/21 Propranolol HCl 20 mg PO BID PRN 10/17/21 Dicyclomine [Bentyl] 10 mg PO TID PRN 02/23/22 traZODone [Desyrel] 25 mg PO HS PRN 02/23/22 Objective - Vital Signs/Intake & Output Reviewed Vital Signs: Yes Vital Signs: Vital Signs x48h Temp Pulse Resp BP BP Pulse Ox 02/24/22 04:32 36.4 C L 72 18 140/99 H 98 02/23/22 23:40 36.5 C 71 18 143/93 H 96 Intake & Output: Intake & Output 02/21/22 02/22/22 02/23/22 02/24/22 23:59 23:59 23:59 23:59 Intake Total 3180 950 Balance 3180 950 - Objective General Appearance: positive: Alert, Mild distress Eyes Bilateral: positive: Normal inspection, Conjunctivae nml ENT: positive: ENT inspection nml Neck: positive: Nml inspection Respiratory: positive: No respiratory distress. negative: Wheezes, Rales Cardiovascular: positive: Regular rate & rhythm. negative: Tachycardia Abdomen: positive: No distention, Tenderness (Predominantly in the epigastric region.). negative: Guarding, Rebound Skin: positive: Warm, Dry - Lab Results Fish Bones: 02/24/22 04:46 02/24/22 04:46 Other Labs: Lab Results x24hrs 02/24/22 02/24/22 02/23/22 Range/Units 04:46 04:46 14:22 WBC 11.2 H (4.8-10.8) x10^3/uL RBC 4.19 L (4.70-6.10) 10^6/uL Hgb 14.2 (14.0-18.0) g/dL Hct 41.6 L (42.0-52.0) % MCV 99.3 H (80.0-94.0) fL MCH 33.9 H (27.0-31.0) pg MCHC 34.1 (32.0-36.0) g/dL RDW 12.5 (12.0-15.0) % Plt Count 229 (130-450) 10^3/uL MPV 8.8 (7.4-11.4) fL Neut # (Auto) 7.4 H (1.5-6.6) 10^3/uL Lymph # (Auto) 2.3 (1.5-3.5) 10^3/uL [place] # (Auto) 0.8 (0.0-1.0) 10^3/uL Eos # (Auto) 0.6 (0.0-0.7) 10^3/uL Baso # (Auto) 0.1 (0.0-0.1) 10^3/uL Absolute Nucleated RBC 0.00 x10^3/uL Nucleated RBC % 0.0 /100WBC Sodium 137 (135-145) mmol/L Potassium 3.7 (3.5-5.0) mmol/L Chloride 103 (101-111) mmol/L Carbon Dioxide 28 (21-32) mmol/L Anion Gap 6.0 (6-13) BUN 10 (6-20) mg/dL Creatinine 0.7 (0.6-1.2) mg/dL Estimated GFR (MDRD) 121 (>89) Glucose 109 H (70-100) mg/dL Calcium 8.5 (8.5-10.3) mg/dL Total Bilirubin 0.9 (0.2-1.0) mg/dL Direct Bilirubin 0.2 (0.1-0.5) mg/dL AST 40 (10-42) IU/L ALT 49 (10-60) IU/L Alkaline Phosphatase 61 (42-121) IU/L Total Protein 5.6 L (6.7-8.2) g/dL Albumin 3.3 (3.2-5.5) g/dL Globulin 2.3 (2.1-4.2) g/dL Albumin/Globulin Ratio (1.0-2.2) Amylase 261 H (28-100) U/L Lipase 552 H (22-51) U/L Urine Color Urine Clarity (CLEAR) Urine pH (5.0-7.5) PH Ur Specific [place] (1.002-1.030) Urine Protein (NEGATIVE) mg/dL Urine Glucose (UA) (NEGATIVE) mg/dL Urine Ketones (NEGATIVE) mg/dL Urine Occult Blood (NEGATIVE) Urine Nitrite (NEGATIVE) Urine Bilirubin (NEGATIVE) Urine Urobilinogen (NORMAL) E.U./dL Ur Leukocyte Esterase (NEGATIVE) Ur Microscopic Review Urine Culture Comments SARS-CoV-2 (PCR) NOT DETECTED 02/23/22 02/23/22 02/23/22 Range/Units 11:54 11:54 11:50 WBC 18.5 H (4.8-10.8) x10^3/uL RBC 4.88 (4.70-6.10) 10^6/uL Hgb 16.7 (14.0-18.0) g/dL Hct 47.7 (42.0-52.0) % MCV 97.7 H (80.0-94.0) fL MCH 34.2 H (27.0-31.0) pg MCHC 35.0 (32.0-36.0) g/dL RDW 12.5 (12.0-15.0) % Plt Count 324 (130-450) 10^3/uL MPV 9.2 (7.4-11.4) fL Neut # (Auto) 14.0 H (1.5-6.6) 10^3/uL Lymph # (Auto) 3.0 (1.5-3.5) 10^3/uL [place] # (Auto) 1.1 H (0.0-1.0) 10^3/uL Eos # (Auto) 0.3 (0.0-0.7) 10^3/uL Baso # (Auto) 0.1 (0.0-0.1) 10^3/uL Absolute Nucleated RBC 0.00 x10^3/uL Nucleated RBC % 0.0 /100WBC Sodium 138 (135-145) mmol/L Potassium 4.2 (3.5-5.0) mmol/L Chloride 101 (101-111) mmol/L Carbon Dioxide 26 (21-32) mmol/L Anion Gap 11.0 (6-13) BUN 8 (6-20) mg/dL Creatinine 0.8 (0.6-1.2) mg/dL Estimated GFR (MDRD) 104 (>89) Glucose 141 H (70-100) mg/dL Calcium 9.7 (8.5-10.3) mg/dL Total Bilirubin 0.7 (0.2-1.0) mg/dL Direct Bilirubin (0.1-0.5) mg/dL AST 79 H (10-42) IU/L ALT 77 H (10-60) IU/L Alkaline Phosphatase 78 (42-121) IU/L Total Protein 7.7 (6.7-8.2) g/dL Albumin 4.4 (3.2-5.5) g/dL Globulin 3.3 (2.1-4.2) g/dL Albumin/Globulin Ratio 1.3 (1.0-2.2) Amylase (28-100) U/L Lipase 620 H (22-51) U/L Urine Color YELLOW Urine Clarity CLEAR (CLEAR) Urine pH 6.0 (5.0-7.5) PH Ur Specific [place] 1.025 (1.002-1.030) Urine Protein NEGATIVE (NEGATIVE) mg/dL Urine Glucose (UA) NEGATIVE (NEGATIVE) mg/dL Urine Ketones NEGATIVE (NEGATIVE) mg/dL Urine Occult Blood NEGATIVE (NEGATIVE) Urine Nitrite NEGATIVE (NEGATIVE) Urine Bilirubin NEGATIVE (NEGATIVE) Urine Urobilinogen 0.2 (NORMAL) (NORMAL) E.U./dL Ur Leukocyte Esterase NEGATIVE (NEGATIVE) Ur Microscopic Review NOT INDICATED Urine Culture Comments NOT INDICATED SARS-CoV-2 (PCR) Assessment/Plan - Problem List (1) Alcoholic pancreatitis Impression: This is improving but ongoing. He has been able to tolerate a clear liquid diet but still has abdominal pain. Amylase is trending down but lipase remains elevated. We will continue with current medical management. Continue with IV fluids as well as pain control with Dilaudid and Toradol as needed. Continue with Zofran as needed for nausea. We discussed that we can look to escalate his diet later this evening if his pain continues to improve and he has no further episodes of emesis. Continue to trend lipase and recheck an amylase in the morning. Qualifiers: Chronicity: acute (2) Colitis Impression: This may also be contributing to his abdominal pain. This was present on the CT of the abdomen pelvis. He did report diarrhea prior to admission but not had a bowel movement since hospitalization. We will check for C. difficile nonetheless. (3) Alcohol use disorder Impression: Stable. He was counseled on the importance of alcohol cessation. He has not s hown evidence of withdrawal and his last drink has now been about 36 hours. We will continue him on thiamine and monitor for evidence of withdrawal. (4) Transaminitis Impression: This is resolved. His LFTs were likely elevated related to his alcohol use. (5) Anxiety Impression: We will resume his home propanolol and escitalopram.
[2022-02-24] MEDS: SODIUM CHLORIDE FLUSH 0.9% 10 ML SYRINGE IVP SCH ×2 (08:17→17:52)
[2022-02-24] MEDS: THIAMINE 100 MG TABLET PO SCH (08:17)
[2022-02-24] MEDS: ENOXAPARIN 40 MG/0.4 ML SYRINGE SUBQ SCH (08:17)
[2022-02-24] MEDS: NICOTINE 14 MG PATCH TOP SCH (08:17)
[2022-02-24] MEDS: ESCITALOPRAM 10 MG TABLET PO SCH (09:48)
[2022-02-24] MEDS: PROPRANOLOL 10 MG TABLET PO SCH ×2 (09:48→21:50)
[2022-02-24] MEDS: SODIUM CHLORIDE FLUSH 0.9% 10 ML SYRINGE IVP PRN ×4 (11:37→19:44)
[2022-02-24] MEDS: GABAPENTIN 300 MG CAPSULE PO SCH (21:50)
[2022-02-25] MEDS: HYDROmorphone 0.5 MG/0.5 ML SYRINGE IVP PRN ×6 (00:02→23:53)
[2022-02-25] MEDS: SODIUM CHLORIDE FLUSH 0.9% 10 ML SYRINGE IVP SCH ×4 (00:02→23:53)
[2022-02-25] MEDS: LACTATED RINGERS 1,000 ML IV SCH ×4 (00:37→22:00)
[2022-02-25] MEDS: oxyCODONE 5 MG TABLET PO PRN ×2 (04:43→19:28)
[2022-02-25] MEDS: ACETAMINOPHEN 325 MG TABLET PO PRN ×2 (04:43→19:27)
[2022-02-25 06:15] LABS: BASOPHILS # (AUTO) 0.1 10^3/uL (0.0-0.1); BASOPHILS % (AUTO) 0.4 %; EOSINOPHILS # (AUTO) 0.6 10^3/uL (0.0-0.7); EOSINOPHILS % (AUTO) 4.2 %; HCT - HEMATOCRIT 39.8 % (42.0-52.0); HGB - HEMOGLOBIN 13.7 g/dL (14.0-18.0); LYMPHOCYTES # (AUTO) 1.7 10^3/uL (1.5-3.5); LYMPHOCYTES % (AUTO) 11.7 %; MEAN CORPUSCULAR HEMOGLOBIN 34.1 pg (27.0-31.0); MEAN CORPUSCULAR HGB CONC 34.4 g/dL (32.0-36.0); MEAN PLATELET VOLUME 9.5 fL (7.4-11.4); MONOCYTES # (AUTO) 1.3 10^3/uL (0.0-1.0); MONOCYTES % (AUTO) 9.3 %; NEUTROPHILS # (AUTO) 10.6 10^3/uL (1.5-6.6); NEUTROPHILS % (AUTO) 73.8 %; PLT - PLATELET COUNT 225 10^3/uL (130-450); RED BLOOD COUNT 4.02 10^6/uL (4.70-6.10); RED CELL DISTRIBUTION WIDTH 12.2 % (12.0-15.0); WHITE BLOOD COUNT 14.4 x10^3/uL (4.8-10.8)
[2022-02-25 06:30] LABS: CALCIUM 8.6 mg/dL (8.5-10.3); CREATININE 0.7 mg/dL (0.6-1.2); POTASSIUM 3.4 mmol/L (3.5-5.0)
[2022-02-25] MEDS: ESCITALOPRAM 10 MG TABLET PO SCH (09:05)
[2022-02-25] MEDS: ENOXAPARIN 40 MG/0.4 ML SYRINGE SUBQ SCH (09:05)
[2022-02-25] MEDS: PRENATAL VITAMIN TABLET PO SCH (09:05)
[2022-02-25] MEDS: NICOTINE 14 MG PATCH TOP SCH (09:06)
[2022-02-25] MEDS: THIAMINE 100 MG TABLET PO SCH (09:06)
[2022-02-25] MEDS: PROPRANOLOL 10 MG TABLET PO SCH ×2 (09:06→22:00)
[2022-02-25] MEDS: GABAPENTIN 300 MG CAPSULE PO SCH ×2 (09:06→22:00)
[2022-02-25] MEDS ORDERED: POTASSIUM CHLORIDE 20 MEQ/15 ML UDC PO ONE (10:00)
--- NOTE | 2022-02-25 10:43 | PROVIDER PROGRESS NOTE ---
Subjective - Prog Note Date Prog Note Date: 02/25/22 - Subjective Subjective: He reports he had some dry heaving yesterday evening but was feeling well throughout the night and not requiring Dilaudid for the past few hours. This morning he states his pain became worse and he felt nauseous. He was able to have of liquid diet for breakfast and was able to keep it down. He states his pain is better compared to yesterday but worse since overnight. Most of it is still diffuse. He still has not had a bowel movement. Current Medications - Current Medications Current Medications: Active Medications Acetaminophen (Acetaminophen 325 Mg Tablet) 650 mg PO Q4HR PRN PRN Reason: Pain 1 to 4, or Fever Last Admin: 02/25/22 04:43 Dose: 650 mg Enoxaparin Sodium (Enoxaparin 40 Mg/0.4 Ml Syringe) 40 mg SUBQ DAILY [facility] Last Admin: 02/25/22 09:05 Dose: 40 mg Escitalopram Oxalate (Escitalopram 10 Mg Tablet) 20 mg PO DAILY [facility] Last Admin: 02/25/22 09:05 Dose: 20 mg Gabapentin (Gabapentin 300 Mg Capsule) 300 mg PO BID [facility] Last Admin: 02/25/22 09:06 Dose: 300 mg Hydromorphone HCl (Hydromorphone 0.5 Mg/0.5 Ml Syringe) 1 mg IVP Q2H PRN PRN Reason: Pain 8 to 10 Last Admin: 02/25/22 09:07 Dose: 1 mg Lactated Ringer's (Lr) 1,000 mls @ 100 mls/hr IV .Q10H [facility] Ketorolac Tromethamine (Ketorolac 15 Mg/Ml Vial) 15 mg IVP Q6HR PRN PRN Reason: PAIN Stop: 02/28/22 14:16 Last Admin: 02/24/22 19:44 Dose: 15 mg Nicotine (Nicotine 14 Mg Patch) 1 patch TOP DAILY [facility] Last Admin: 02/25/22 09:06 Dose: 1 patch Ondansetron HCl (Ondansetron Odt 4 Mg Tablet) 4 mg TL Q6HR PRN PRN Reason: Nausea / Vomiting Ondansetron HCl (Ondansetron 4 Mg/2 Ml Vial) 4 mg IVP Q6HR PRN PRN Reason: Nausea / Vomiting Last Admin: 02/24/22 03:53 Dose: 4 mg Oxycodone HCl (Oxycodone 5 Mg Tablet) 5 mg PO Q4HR PRN PRN Reason: Pain 5 to 7 Last Admin: 02/25/22 04:43 Dose: 5 mg Multivit/Folic Acid/Iron ( Vitamin Tablet) 1 tab PO DAILYWM [facility] Last Admin: 02/25/22 09:05 Dose: 1 tab Propranolol HCl (Propranolol 10 Mg Tablet) 20 mg PO BID [facility] Last Admin: 02/25/22 09:06 Dose: 20 mg Sodium Chloride (Sodium Chloride Flush 0.9% 10 Ml Syringe) 10 ml IVP PRN PRN PRN Reason: NEEDED PER PROVIDER ORDERS Last Admin: 02/24/22 19:44 Dose: 10 ml Sodium Chloride (Sodium Chloride Flush 0.9% 10 Ml Syringe) 10 ml IVP 0100,0900,1700 [facility] Last Admin: 02/25/22 09:06 Dose: Not Given Thiamine HCl (Thiamine 100 Mg Tablet) 300 mg PO DAILY [facility] Last Admin: 02/25/22 09:06 Dose: 300 mg Escitalopram Oxalate 20 mg PO DAILY 10/17/21 Gabapentin [Neurontin] 300 mg PO BID 10/17/21 Propranolol HCl 20 mg PO BID PRN 10/17/21 Dicyclomine [Bentyl] 10 mg PO TID PRN 02/23/22 traZODone [Desyrel] 25 mg PO HS PRN 02/23/22 Objective - Vital Signs/Intake & Output Reviewed Vital Signs: Yes Vital Signs: Vital Signs x48h Temp Pulse Resp BP Pulse Ox 02/25/22 09:00 87 147/95 H 02/25/22 07:20 36.6 C 87 16 119/100 H 94 02/25/22 04:57 36.9 C 94 18 164/98 H 91 L Intake & Output: Intake & Output 02/22/22 02/23/22 02/24/22 02/25/22 23:59 23:59 23:59 23:59 Intake Total 3180 4455 2080 Balance 3180 4455 0 - Objective General Appearance: positive: Alert, Mild distress Eyes Bilateral: positive: Normal inspection, Conjunctivae nml ENT: positive: ENT inspection nml Respiratory: positive: No respiratory distress. negative: Wheezes, Rales Cardiovascular: positive: Regular rate & rhythm. negative: Tachycardia Abdomen: positive: Nml bowel sounds, No distention, Tenderness (Diffuse tenderness.). negative: Rebound Skin: positive: Warm, Dry Extremities: positive: No pedal edema Neurologic/Psychiatric: negative: Disoriented to person, Disoriented to place - Lab Results Fish Bones: 02/25/22 05:49 02/25/22 05:49 Other Labs: Lab Results x24hrs 02/25/22 02/25/22 Range/Units 05:49 05:49 WBC 14.4 H (4.8-10.8) x10^3/uL RBC 4.02 L (4.70-6.10) 10^6/uL Hgb 13.7 L (14.0-18.0) g/dL Hct 39.8 L (42.0-52.0) % MCV 99.0 H (80.0-94.0) fL MCH 34.1 H (27.0-31.0) pg MCHC 34.4 (32.0-36.0) g/dL RDW 12.2 (12.0-15.0) % Plt Count 225 (130-450) 10^3/uL MPV 9.5 (7.4-11.4) fL Neut # (Auto) 10.6 H (1.5-6.6) 10^3/uL Lymph # (Auto) 1.7 (1.5-3.5) 10^3/uL [place] # (Auto) 1.3 H (0.0-1.0) 10^3/uL Eos # (Auto) 0.6 (0.0-0.7) 10^3/uL Baso # (Auto) 0.1 (0.0-0.1) 10^3/uL Absolute Nucleated RBC 0.00 x10^3/uL Nucleated RBC % 0.0 /100WBC Sodium 133 L (135-145) mmol/L Potassium 3.4 L (3.5-5.0) mmol/L Chloride 96 L (101-111) mmol/L Carbon Dioxide 28 (21-32) mmol/L Anion Gap 9.0 (6-13) BUN 7 (6-20) mg/dL Creatinine 0.7 (0.6-1.2) mg/dL Estimated GFR (MDRD) 121 (>89) Glucose 89 (70-100) mg/dL Calcium 8.6 (8.5-10.3) mg/dL Amylase 117 H (28-100) U/L Lipase 144 H (22-51) U/L Assessment/Plan - Problem List (1) Alcoholic pancreatitis Impression: He appears to be slowly improving. His abdominal pain is improving overall despite it being a little worse this morning compared to overnight. His lipase and amylase are trending down. He is requiring less Dilaudid. We will keep him on IV fluids but decrease rate to 100 mL an hour. We will continue with current pain regimen. We will keep him on a full liquid diet and we will look to escalate this afternoon/evening if he continues to improve. We discussed once again the importance of alcohol cessation given I am concerned he may have a component of chronic pancreatitis. He expressed understanding of this. Qualifiers: Chronicity: acute (2) Colitis Impression: CT on admission was concerning for colitis and he also had diarrhea prior to admission. Concern was for potential C. difficile infection but he has not had diarrhea or bowel movement since admission which makes this less likely. As mentioned above, his pain is improving she will continue to monitor at this time. If he has worsening pain then we will likely start him on empiric antibiotics for infectious colitis. (3) Alcohol use disorder Impression: He has not shown evidence of withdrawal during his hospitalization. We will continue him on thiamine. We once again discussed importance of alcohol cessation. (4) Transaminitis Impression: This likely secondary to his alcohol use and has resolved. (5) Anxiety Impression: We have resumed his home escitalopram and propanolol.
[2022-02-25] MEDS: KETOROLAC 15 MG/ML VIAL IVP PRN ×2 (15:45→21:59)
[2022-02-26] MEDS: HYDROmorphone 0.5 MG/0.5 ML SYRINGE IVP PRN (05:32)
[2022-02-26 06:18] LABS: BASOPHILS % (AUTO) 0.4 %; EOSINOPHILS # (AUTO) 0.7 10^3/uL (0.0-0.7); EOSINOPHILS % (AUTO) 5.9 %; HCT - HEMATOCRIT 38.6 % (42.0-52.0); HGB - HEMOGLOBIN 13.3 g/dL (14.0-18.0); LYMPHOCYTES # (AUTO) 1.9 10^3/uL (1.5-3.5); LYMPHOCYTES % (AUTO) 16.8 %; MEAN CORPUSCULAR HEMOGLOBIN 33.7 pg (27.0-31.0); MEAN CORPUSCULAR HGB CONC 34.5 g/dL (32.0-36.0); MEAN CORPUSCULAR VOLUME 97.7 fL (80.0-94.0); MEAN PLATELET VOLUME 9.3 fL (7.4-11.4); NEUTROPHILS # (AUTO) 7.6 10^3/uL (1.5-6.6); NEUTROPHILS % (AUTO) 67.2 %; PLT - PLATELET COUNT 215 10^3/uL (130-450); RED BLOOD COUNT 3.95 10^6/uL (4.70-6.10); WHITE BLOOD COUNT 11.2 x10^3/uL (4.8-10.8)
[2022-02-26 06:31] LABS: BUN - BLOOD UREA NITROGEN < 5 mg/dL (6-20); CALCIUM 8.7 mg/dL (8.5-10.3); CARBON DIOXIDE - CO2 30 mmol/L (21-32); CHLORIDE 96 mmol/L (101-111); CREATININE 0.7 mg/dL (0.6-1.2); GFR - MDRD 121 (>89); GLUCOSE 108 mg/dL (70-100); LIPASE 88 U/L (22-51); POTASSIUM 3.5 mmol/L (3.5-5.0); SODIUM 134 mmol/L (135-145)
[2022-02-26 07:34] VITALS: BP 163/96
[2022-02-26] MEDS ORDERED: HYDROmorphone 0.5 MG/0.5 ML SYRINGE IVP PRN (07:40)
[2022-02-26] MEDS: LACTATED RINGERS 1,000 ML IV SCH ×2 (08:39→08:52)
[2022-02-26] MEDS: ESCITALOPRAM 10 MG TABLET PO SCH (08:40)
[2022-02-26] MEDS: ACETAMINOPHEN 325 MG TABLET PO PRN (08:41)
[2022-02-26] MEDS: PRENATAL VITAMIN TABLET PO SCH (08:41)
[2022-02-26] MEDS: oxyCODONE 5 MG TABLET PO PRN (08:41)
[2022-02-26] MEDS: THIAMINE 100 MG TABLET PO SCH (08:42)
[2022-02-26] MEDS: PROPRANOLOL 10 MG TABLET PO SCH (08:42)
[2022-02-26] MEDS: GABAPENTIN 300 MG CAPSULE PO SCH (08:42)
[2022-02-26] MEDS: SODIUM CHLORIDE FLUSH 0.9% 10 ML SYRINGE IVP SCH (08:43)
[2022-02-26] MEDS: NICOTINE 14 MG PATCH TOP SCH (08:45)
[2022-02-26] MEDS: ENOXAPARIN 40 MG/0.4 ML SYRINGE SUBQ SCH (08:47)
--- NOTE | 2022-02-26 09:01 | Discharge Plan ---
Discharge Plan Problem Reviewed?: Yes Disposition: Home, Self Care Condition: Stable Prescriptions: oxyCODONE [Roxicodone] 5 mg PO Q4HR PRN #16 tablet PRN Reason: Pain 5 to 7 amLODIPine [Norvasc] 5 mg PO DAILY #30 tablet Ondansetron Odt [Zofran Odt] 4 mg TL Q6H PRN #10 tablet PRN Reason: Nausea / Vomiting Activity Restrictions: Activity as Tolerated Driving Restrictions: Yes (Do not drive while taking oxycodone.) Instruction Topics: Pancreatitis Acute Dc, Pancreatitis Chronic Dc Health Concerns: You were admitted to the hospital because of pancreatitis which we suspect is due to your alcohol use. You were treated with IV fluids and pain control with improvement in your symptoms. You have since been tolerating a diet and your pain is better controlled. You are now stable for discharge home. Plan of Treatment: I have provided you with a few days of pain medication to take as needed. I have also sent a prescription for Zofran to take for nausea. You may also take Tylenol as needed for pain control. Ibuprofen 40 mg can be used every 6 hours as well for up to a week. As we discussed, it is important to refrain from alcohol use as this is causing your pancreatitis and you are at high risk of developing chronic pancreatitis which can lead to chronic abdominal pain, bloating. This can also increase your risk of diabetes. If your pain persists despite abstaining from alcohol, you may need a colonoscopy as CT scan did show some inflammation of your colon. Your blood pressures also been elevated so we prescribed you amlodipine 5 mg to help manage yor blood pressure. Care Goals: The goal is to prevent future episodes of pancreatitis by refraining from alcohol use. Assessment: The patient expressed understanding of the treatment plan. Additional Instructions or Follow Up instructions: Please follow-up with your primary care physician in 1 to 2 weeks. You should have a colonoscopy done on an outpatient basis. No Smoking: If you smoke, Please STOP! Call for help. Follow-up with: Kajal Kuo ARNP [Primary Care Provider] -
--- NOTE | 2022-02-26 09:21 | DISCHARGE SUMMARY ---
"Discharge Summary Admit Date: 02/23/22 Discharge Date: 02/26/22 Discharging Provider: Chaitanya Duckworth Primary Care Provider: Kajal Kuo Code Status: Attempt Resuscitation Condition at Discharge: Stable Discharge Disposition: 01 Home, Self Care - DIAGNOSES Admission Diagnoses: Alcoholic pancreatitis Colitis Alcohol use disorder Transaminitis Anxiety Discharge Diagnoses with Status of Each Condition: Alcoholic pancreatitis - improved. Colitis - improved. Alcohol use disorder - stable. Transaminitis - resolved. Anxiety - stable. Hypertension - stable. - HPI History of Present Illness: This is a 46-year-old male with a history of pancreatitis due to alcohol consumption, alcohol abuse, anxiety who presents today complaining of abdominal pain. He states he has been going for the past month but has really progressed over the past few days. He reports some nausea but no vomiting. He has had diarrhea over the past month as well with as many as 14 bowel movements a day. He states bowel movements are small in volume but are quite frequent. He reports no dysuria, urgency, hematuria. Most of his pain is in the epigastric region but part of it is also diffuse throughout the abdomen. He has been drinking 4 alcoholic beverages a night for the past 6 months. He states his last drink was yesterday evening. He has quit in the past for a few months but he always returns to drinking to help cope with stress in life and pain due to his right IT band. He is open to quitting alcohol as he knows it is detrimental to his life. He reports no recent antibiotic use. In the emergency department, he was noted to have an elevated white blood cell count of 18,000. His lipase is also elevated at over 600. CT suggested pancreatitis and colitis. Given the above findings, medicine was consulted for admission. - CONSULTS | PROCEDURES Consultations: Social work - HOSPITAL COURSE Hospital Course: The patient was admitted to the floor for acute alcoholic pancreatitis. He was treated with IV fluids, pain control and antiemetics. He had improvement in his lipase and amylase as well as his symptoms over the next 2 days. His diet was slowly advanced and he has since been tolerating a low-fat diet with improvement in his symptoms. He still has some abdominal pain and he is discharged with oxycodone and Zofran for nausea. NURSE INFORMATICS EDUCATOR was checked prior to the prescriptions being sent. I discussed with the patient that there is concern that he is at risk of developing chronic pancreatitis and we discussed extensively the importance of alcohol cessation. His blood pressure was noted to be elevated and he was prescribed amlodipine 5 mg on discharge. We also discussed that his CT showed nonspecific thickening of the colon concerning for colitis. He did have diarrhea prior to admission and we did joaquin ck for C. difficile but this was negative. We discussed that he should have an outpatient colonoscopy for further evaluation especially if his pain persists. - ALLERGIES Allergies/Adverse Reactions: Allergies Allergy/AdvReac Type Severity Reaction Status Date / Time No Known Drug Allergies Allergy Verified 02/23/22 11:44 - MEDICATIONS Home Medications: Ambulatory Orders Medication Instructions Recorded Confirmed Escitalopram Oxalate 20 mg PO DAILY 10/17/21 02/23/22 Gabapentin [Neurontin] 300 mg PO BID 10/17/21 02/23/22 Propranolol HCl 20 mg PO BID PRN 10/17/21 02/23/22 tiZANidine [Zanaflex] 4 mg PO Q8H PRN #25 tablet 10/17/21 Dicyclomine [Bentyl] 10 mg PO TID PRN 02/23/22 02/23/22 traZODone [Desyrel] 25 mg PO HS PRN 02/23/22 02/23/22 Ondansetron Odt [Zofran Odt] 4 mg TL Q6H PRN #10 tablet 02/26/22 amLODIPine [Norvasc] 5 mg PO DAILY #30 tablet 02/26/22 oxyCODONE [Roxicodone] 5 mg PO Q4HR PRN #16 tablet 02/26/22 - PHYSICAL EXAM AT DISCHARGE General Appearance: positive: No acute distress, Alert Eyes Bilateral: positive: Normal inspection, Conjunctivae nml ENT: positive: ENT inspection nml Neck: positive: Nml inspection Respiratory: positive: No respiratory distress. negative: Wheezes, Rales Cardiovascular: positive: Regular rate & rhythm, No murmur. negative: Tachycardia Abdomen: positive: Nml bowel sounds, Tenderness (Mild tenderness prominent in the right and left mid quadrants.). negative: Guarding, Rebound Skin: positive: Warm, Dry Extremities: positive: No pedal edema Neurologic/Psychiatric: positive: Motor nml. negative: Disoriented to person, Disoriented to place - LABS Result Diagrams: 02/26/22 06:10 02/26/22 06:10 - DIAGNOSTIC IMAGING Diagnostic Imaging Results: Final report reviewed - FOLLOW UP Follow Up: He was instructed to follow-up with his primary care addition in 1 to 2 weeks and that he would benefit of an outpatient colonoscopy. - TIME SPENT Time Spent in Discharge (Minutes): 34"
== END 2022-02-26 12:59 | disposition home or self-care (01) | DRG 440 ==
LOC: ED 11:29 → MS2 14:14
PROVIDERS: ADMIT Internal Medicine; ATTEND Internal Medicine
DX: K85.20 Alcohol induced acute pancreatitis without necrosis or infection (principal); K52.9 Noninfective gastroenteritis and colitis, unspecified; F10.10 Alcohol abuse, uncomplicated; F17.200 Nicotine dependence, unspecified, uncomplicated; F41.9 Anxiety disorder, unspecified; I10 Essential (primary) hypertension; D72.829 Elevated white blood cell count, unspecified; G89.29 Other chronic pain; M54.9 Dorsalgia, unspecified; M70.61 Trochanteric bursitis, right hip; R74.01 Elevation of levels of liver transaminase levels; Z20.822 Contact with and (suspected) exposure to COVID-19; Z79.899 Other long term (current) drug therapy
CPT/HCPCS: 36415; 74177; 80048; 80053; 80076; 81003; 82150; 83690; 85025; 87493; 87635; 99284; 99285; A9270; J1170; J1650; J7120; Q9967; 81001; 87086

== ENCOUNTER 2022-08-18 15:42 | Emergency (ER) | payer MEDICAID ==
[2022-08-18 16:16] LABS: BASOPHILS # (AUTO) 0.1 10^3/uL (0.0-0.1); BASOPHILS % (AUTO) 0.4 %; EOSINOPHILS % (AUTO) 0.2 %; HCT - HEMATOCRIT 50.7 % (42.0-52.0); HGB - HEMOGLOBIN 17.2 g/dL (14.0-18.0); LYMPHOCYTES # (AUTO) 2.1 10^3/uL (1.5-3.5); MEAN CORPUSCULAR HEMOGLOBIN 33.1 pg (27.0-31.0); MEAN CORPUSCULAR HGB CONC 33.9 g/dL (32.0-36.0); MEAN CORPUSCULAR VOLUME 97.7 fL (80.0-94.0); MEAN PLATELET VOLUME 9.1 fL (7.4-11.4); MONOCYTES # (AUTO) 0.7 10^3/uL (0.0-1.0); NEUTROPHILS # (AUTO) 14.8 10^3/uL (1.5-6.6); NEUTROPHILS % (AUTO) 82.8 %; PLT - PLATELET COUNT 409 10^3/uL (130-450); RED BLOOD COUNT 5.19 10^6/uL (4.70-6.10); RED CELL DISTRIBUTION WIDTH 13.4 % (12.0-15.0); WHITE BLOOD COUNT 17.9 x10^3/uL (4.8-10.8)
--- OUTSIDE RECORDS SUMMARY | 2022-08-18 16:26 | EXTERNAL MEDICAL SUMMARY RPT | Continuity of Care Document ---
:1975 Author Organization [facility] Address [address] [place] [address] Phone Care Team Providers Name Role Phone Unavailable Unavailable Unavailable Kajal Jiang Unavailable Unavailable Allergies No information. Encounters No information. Functional Status No information. Immunizations No information. Medications date description facility 2022-06-10 00:00 [facility]ine [facility] 2022-06-14 00:00 [facility]ine [facility] 2022-06-10 00:00 [facility]odone [facility] 2022-06-14 00:00 [facility]odone [facility] 2022-06-10 00:00 [facility]ine [facility] 2022-06-14 00:00 [facility]ine [facility] 2022-06-10 00:00 [facility]ine [facility] 2022-06-14 00:00 [facility]ine [facility] 2022-06-10 00:00 tra[facility]odone [facility] 2022-06-14 00:00 [facility]odone [facility] 2022-06-10 00:00 [facility]odone [facility] 2022-06-14 00:00 tra[facility]odone [facility] 2022-06-10 00:00 [facility]ipine [facility] 2022-06-14 00:00 [facility]ine [facility] 2022-06-10 00:00 [facility]odone [facility] 2022-06-14 00:00 trazodone [facility] Problems No information. Procedures No information. Results/Labs test date author facility value unit interpret ation Result panel 1 (unknown) (no date) (unknown) [facility] (no value) (units [facility] Result panel 2 (unknown) (no date) (unknown) [facility] (no value) [facility]units [facility] Result panel 3 (unknown) (no date) (unknown) [facility] (no value) [facility]units [facility] Result panel 4 (unknown) (no date) (unknown) [facility] (no value) (units [facility] Result panel 5 (unknown) (no date) (unknown) [facility] (no value) (units [facility] Result panel 6 (unknown) (no date) (unknown) [facility] (no value) (units ([facility] Result panel 7 (unknown) (no date) (unknown) [facility] (no value) (units ([facility] Result panel 8 (unknown) (no date) (unknown) [facility] (no value) (units ([facility] Result panel 9 (unknown) (no date) (unknown) [facility] (no value) (units ([facility] Result panel 10 (unknown) (no date) (unknown) [facility] (no value) (units ([facility] Result panel 11 (unknown) (no date) (unknown) [facility] (no value) (units ([facility] Result panel 12 (unknown) (no date) (unknown) [facility] (no value) (units ([facility] Result panel 13 (unknown) (no date) (unknown) [facility] (no value) [facility]units ([facility] Result panel 14 (unknown) (no date) (unknown) [facility] (no value) (units ([facility] Result panel 15 (unknown) (no date) (unknown) [facility] (no value) (units ([facility] Result panel 16 (unknown) (no date) (unknown) [facility] (no value) (units ([facility] Result panel 17 (unknown) (no date) (unknown) [facility] (no value) (units ([facility] Result panel 18 (unknown) (no date) (unknown) [facility] (no value) (units ([facility] Result panel 19 (unknown) (no date) (unknown) [facility] (no value) [facility]units [facility] Result panel 20 (unknown) (no date) (unknown) [facility] (no value) (units ([facility] Result panel 21 (unknown) (no date) (unknown) [facility] (no value) (units ([facility] Result panel 22 (unknown) (no date) (unknown) [facility] (no value) (units ([facility] Result panel 23 (unknown) (no date) (unknown) [facility] (no value) (units ([facility] Result panel 24 (unknown) (no date) (unknown) [facility] (no value) (units ([facility] Result panel 25 (unknown) (no date) (unknown) [facility] (no value) (units ([facility] Result panel 26 (unknown) (no date) (unknown) [facility] (no value) (units ([facility] Result panel 27 (unknown) (no date) (unknown) Walk-[facility] (no value) (units ([facility] Result panel 28 (unknown) (no date) (unknown) [facility] (no value) (units ([facility] Result panel 29 (unknown) (no date) (unknown) [facility] (no value) [facility]units ([facility] Result panel 30 (unknown) (no date) (unknown) [facility] (no value) (units ([facility] Result panel 31 (unknown) (no date) (unknown) [facility] (no value) (units ([facility] Result panel 32 (unknown) (no date) (unknown) [facility] (no value) [facility] Result panel 33 (unknown) (no date) (unknown) [facility] (no value) [facility]units [facility] Result panel 34 (unknown) (no date) (unknown) [facility] (no value) (units ([facility] Result panel 35 (unknown) (no date) (unknown) [facility] (no value) (units ([facility] Result panel 36 (unknown) (no date) (unknown) [facility] (no value) (units [facility] Result panel 37 (unknown) (no date) (unknown) [facility] (no value) [facility] Result panel 38 (unknown) (no date) (unknown) [facility] (no value) [facility] Result panel 39 (unknown) (no date) (unknown) [facility] (no value) [facility] Result panel 40 (unknown) (no date) (unknown) [facility] (no value) [facility] Result panel 41 (unknown) (no date) (unknown) [facility] (no value) [facility] Result panel 42 (unknown) (no date) (unknown) Walk-[facility] (no value) [facility]units ([facility] Result panel 43 (unknown) (no date) (unknown) [facility] (no value) (units ([facility] Result panel 44 (unknown) (no date) (unknown) Walk-[facility] (no value) (units ([facility] Result panel 45 (unknown) (no date) (unknown) Walk-In (no value) (units ([facility] Result panel 46 (unknown) (no date) (unknown) Walk-[facility] (no value) (units ([facility] Result panel 47 (unknown) (no date) (unknown) Walk-[facility] (no value) (units ([facility] Result panel 48 (unknown) (no date) (unknown) [facility] (no value) (units ([facility] Result panel 49 (unknown) (no date) (unknown) [facility] (no value) [facility] Result panel 50 (unknown) (no date) (unknown) [facility] (no value) [facility] Result panel 51 (unknown) (no date) (unknown) [facility] (no value) [facility]units [facility] Result panel 52 (unknown) (no date) (unknown) [facility] (no value) [facility] Result panel 53 (unknown) (no date) (unknown) [facility] (no value) [facility] Result panel 54 (unknown) (no date) (unknown) [facility] (no value) [facility] Result panel 55 (unknown) (no date) (unknown) [facility] (no value) [facility] Result panel 56 (unknown) (no date) (unknown) Walk-[facility] (no value) [facility]units [facility] Result panel 57 (unknown) (no date) (unknown) [facility] (no value) [facility] Result panel 58 (unknown) (no date) (unknown) [facility] (no value) [facility] Result panel 59 (unknown) (no date) (unknown) [facility] (no value) [facility] Result panel 60 (unknown) (no date) (unknown) [facility] (no value) [facility] Result panel 61 (unknown) (no date) (unknown) Walk-[facility] (no value) [facility]units [facility] Result panel 62 (unknown) (no date) (unknown) Walk-[facility] (no value) (units [facility] Result panel 63 (unknown) (no date) (unknown) [facility] (no value) (units ([facility] Result panel 64 (unknown) (no date) (unknown) Walk-In (no value) (units ([facility] Result panel 65 (unknown) (no date) (unknown) Walk-In (no value) (units ([facility] Result panel 66 (unknown) (no date) (unknown) Walk-[facility] (no value) (units ([facility] Result panel 67 (unknown) (no date) (unknown) Walk-In (no value) (units [facility] Result panel 68 (unknown) (no date) (unknown) Walk-In (no value) (units ([facility] Result panel 69 (unknown) (no date) (unknown) Walk-In (no value) (units ([facility] Result panel 70 (unknown) (no date) (unknown) Walk-In (no value) (units ([facility] nown[facility] Result panel 71 (unknown) (no date) (unknown) Walk-In (no value) (units ([facility] Result panel 72 (unknown) (no date) (unknown) Walk-In (no value) (units ([facility] Result panel 73 (unknown) (no date) (unknown) Walk-In (no value) (units ([facility]own[facility] Result panel 74 (unknown) (no date) (unknown) Walk-In (no value) (units ([facility] nown) [facility] Result panel 75 (unknown) (no date) (unknown) Walk-In (no value) (units ([facility] n[facility] Result panel 76 (unknown) (no date) (unknown) Walk-[facility] (no value) (units ([facility] Result panel 77 (unknown) (no date) (unknown) [facility] (no value) (units ([facility] n[facility] Result panel 78 (unknown) (no date) (unknown) [facility] (no value) (units ([facility] Result panel 79 (unknown) (no date) (unknown) [facility] (no value) (units ([facility] Result panel 80 (unknown) (no date) (unknown) [facility] (no value) (units [facility] Result panel 81 (unknown) (no date) (unknown) Walk-In (no value) (units [facility] Result panel 82 (unknown) (no date) (unknown) [facility] (no value) (units [facility] Result panel 83 (unknown) (no date) (unknown) Walk-[facility] (no value) (units ([facility] Result panel 84 (unknown) (no date) (unknown) Walk-In (no value) (units ([facility] Result panel 85 (unknown) (no date) (unknown) Walk-In (no value) (units [facility] Social History No information. Vital Signs No information.
[2022-08-18 16:50] LABS: ALBUMIN/GLOBULIN RATIO 1.1 (1.0-2.2); CALCIUM 9.5 mg/dL (8.5-10.3); CREATININE 0.8 mg/dL (0.6-1.2); POTASSIUM 4.2 mmol/L (3.5-5.0); TOTAL PROTEIN 7.6 g/dL (6.7-8.2)
[2022-08-18] MEDS ORDERED: HYDROmorphone 1 MG/ML CARPUJECT IVP STA ×4 (17:27→19:57)
[2022-08-18] MEDS ORDERED: ONDANSETRON 4 MG/2 ML VIAL IVP STA (17:27)
--- NOTE | 2022-08-18 17:29 | ED Physician Documentation ---
PD HPI ABD PAIN - Stated complaint Stated Complaint: ABD PX - Chief complaint Chief Complaint: Abd Pain - History obtained from History obtained from: Patient - Additional information Additional information: 46-year-old gentleman with history of alcoholic pancreatitis presents with central abdominal pain starting around 11 this morning. States he has not drank recently to me, but nurses notes state that he was drinking a few days ago. He has been vomiting without blood. No diarrhea. No history of abdominal surgeries. States this feels different than prior pancreatitis. Review of Systems Constitutional: denies: Fever, Chills Cardiac: denies: Chest pain / pressure, Palpitations Respiratory: denies: Dyspnea, Cough PD PAST MEDICAL HISTORY - Past Medical History Cardiovascular: None Respiratory: None Neuro: None Endocrine/Autoimmune: None GI: Pancreatitis, Other : None HEENT: None Psych: Anxiety Musculoskeletal: Chronic back pain, Other (Right lateral hip pain diagnosed as trochanteric tendinitis with previous physical therapy and some anti- inflammatories. Ongoing pain in that area.) Derm: Other - Past Surgical History Past Surgical History: No - Present Medications Home Medications: Ambulatory Orders Medication Instructions Recorded Confirmed Escitalopram Oxalate 20 mg PO DAILY 10/17/21 02/23/22 Gabapentin [Neurontin] 300 mg PO BID 10/17/21 02/23/22 Propranolol HCl 20 mg PO BID PRN 10/17/21 02/23/22 tiZANidine [Zanaflex] 4 mg PO Q8H PRN #25 tablet 10/17/21 Dicyclomine [Bentyl] 10 mg PO TID PRN 02/23/22 02/23/22 traZODone [Desyrel] 25 mg PO HS PRN 02/23/22 02/23/22 Ondansetron Odt [Zofran Odt] 4 mg TL Q6H PRN #10 tablet 02/26/22 amLODIPine [Norvasc] 5 mg PO DAILY #30 tablet 02/26/22 oxyCODONE [Roxicodone] 5 mg PO Q4HR PRN #16 tablet 02/26/22 Ondansetron Odt [Zofran] 4 mg TL Q6H PRN #10 tablet 06/10/22 Oxycodone HCl/Acetaminophen 1 - 2 each PO Q6H PRN #14 tablet 06/10/22 [Percocet 5-325 mg Tablet] Ondansetron Odt [Zofran] 4 mg TL Q6H PRN #10 tablet 08/18/22 Oxycodone HCl/Acetaminophen 1 - 2 each PO Q6H PRN #14 tablet 08/18/22 [Percocet 5-325 mg Tablet] - Allergies Allergies/Adverse Reactions: Allergies Allergy/AdvReac Type Severity Reaction Status Date / Time No Known Drug Allergies Allergy Verified 08/18/22 15:54 - Social History Does the pt smoke?: Yes Smoking Status: Current every day smoker Does the pt drink ETOH?: Yes Does the pt have substance abuse?: No - Immunizations Immunizations are current?: Yes - POLST Patient has POLST: No POLST Status: Full Code PD ED PE NORMAL - Vitals Vital signs reviewed: Yes - General General: Alert and oriented X 3, Other (Uncomfortable and retching) - Cardiac Cardiac: RRR, No murmur - Respiratory Respiratory: No respiratory distress, Clear bilaterally - Abdomen Abdomen: Normal bowel sounds, Soft, Other (Modest upper abdominal tenderness without surgical signs) - Back Back: No CVA TTP, No spinal TTP - Derm Derm: Normal color, Warm and dry - Extremities Extremities: No edema, No calf tenderness / cord - Neuro Neuro: Alert and oriented X 3, Normal speech Results - Vitals Vitals: Vital Signs - 24 hr 08/18/22 08/18/22 08/18/22 15:54 17:43 19:00 Temperature 36.5 C Heart Rate 76 73 75 Respiratory 18 20 22 Rate Blood Pressure 150/100 H 180/109 H 196/116 H O2 Saturation 100 100 98 08/18/22 20:25 Temperature Heart Rate 85 Respiratory 18 Rate Blood Pressure 177/114 H O2 Saturation 96 Oxygen O2 Source Room air - Labs Labs: Laboratory Tests 08/18/22 08/18/22 08/18/22 16:13 16:13 16:13 WBC 17.9 H RBC 5.19 Hgb 17.2 Hct 50.7 MCV 97.7 H MCH 33.1 H MCHC 33.9 RDW 13.4 Plt Count 409 MPV 9.1 Neut # (Auto) 14.8 H Lymph # (Auto) 2.1 [place] # (Auto) 0.7 Eos # (Auto) 0.0 Baso # (Auto) 0.1 Absolute Nucleated RBC 0.00 Nucleated RBC % 0.0 Sodium 137 Potassium 4.2 Chloride 96 L Carbon Dioxide 26 Anion Gap 15.0 H BUN 11 Creatinine 0.8 Estimated GFR (MDRD) 104 Glucose 193 H Calcium 9.5 Total Bilirubin 1.0 AST 77 H ALT 62 H Alkaline Phosphatase 114 Total Protein 7.6 Albumin 4.0 Globulin 3.6 Albumin/Globulin Ratio 1.1 Lipase 840 H Ethyl Alcohol < 5.0 - Rads (name of study) CT of the abdomen pelvis showing pancreatitis, hepatic steatosis and diverticulosis without-itis Radiology: Final report received, EMP read indepedently PD Medical Decision Making - ED course ED course: 46-year-old gentleman presents with abdominal pain. He has a history of recurrent alcoholic pancreatitis and states this feels different, that said work-up shows recurrent active pancreatitis. CBC reviewed and normal with the exception of leukocytosis. Chemistries reviewed with mild transaminitis and lipase at 840 consistent with pancreatitis. Blood alcohol level less than 5, negative. He was treated with divided doses of Dilaudid with good effect. Also 1 dose of Toradol here. He was offered admission to the hospital but thinks he will be okay at home. He was counseled on diet, Also alcohol avoidance. Departure - Departure Disposition: Home, Self Care Clinical Impression: Alcoholic pancreatitis Condition: Good Record reviewed to determine appropriate education?: Yes Instructions: ED Pancreatitis Prescriptions: Oxycodone HCl/Acetaminophen [Percocet 5-325 mg Tablet] 1 - 2 each PO Q6H PRN #14 tablet PRN Reason: pain Ondansetron Odt [Zofran] 4 mg TL Q6H PRN #10 tablet PRN Reason: Nausea / Vomiting Comments: I sent your prescription electronically to [facility] in [place]. Return for new or worsening symptoms. Avoid alcohol at all costs. Clear liquid diet for the next 24 hours, then a very light/bland diet for the next 48 hours. Follow-up with your doctor Tuesday or Tuesday for recheck. I am prescribing a short course of narcotic pain medication for you. These are potentially dangerous and addictive medications that should be used carefully. These medications may constipate you. Take an yain-qsy-ofkwjnw stool softener (docusate) twice daily with plenty of water while taking these medications. If you go 24 hours without a bowel movement, take cnuk-qnv-mdsygty miralax, per package instructions. Do not drink or drive while taking these medications. If you received narcotic or sedating medications while in the emergency department, do not drive for 24 hours. Store this medication in a safe, secure place and out of reach of children. It is a violation of federal law to give or sell this medication to another person or to use in a manner other than prescribed. The ED will not refill narcotic prescriptions, including prescriptions lost or stolen. To dispose of unwanted medications: 1. [facility] at [address] in [place] has a medication drop box. They accept prescription medications (in pill form) Tuesday through Tuesday 9:00 a.m. to 5:00 p.m. 2. The [facility] accepts prescription medications (in pill form only) for disposal year round. Call for more inf ormation. 3. Contact the [facility] for the next [facility] sponsored prescription drug collection event. , [phone], or [phone]; Note that many narcotic pain relievers also contain Tylenol/acetaminophen. Please ensure that your total dose of acetaminophen from all sources does not exceed 3 g (3000 mg) per day. Discharge Date/Time: 08/18/22 20:29
[2022-08-18] MEDS ORDERED: iohexoL-300 100 ML VIAL ONE (18:17)
[2022-08-18] MEDS ORDERED: KETOROLAC 15 MG/ML VIAL IVP STA (19:03)
[2022-08-18] MEDS ORDERED: iohexoL-300 100 ML VIAL IVP ONE (19:33)
--- NOTE | 2022-08-18 19:50 | CT Report ---
PROCEDURE: ABDOMEN/PELVIS W INDICATIONS: IV only, central abd pain CONTRAST: 100mL Omni 300 TECHNIQUE: After the administration of intravenous contrast, 5 mm thick sections acquired from the diaphragms to the symphysis. 5 mm thick coronal and sagittal reformats were acquired. For radiation dose reducti on, the following was used: automated exposure control, adjustment of mA and/or kV according to [place] ent size. COMPARISON: CT abdomen/pelvis 06/10/2022 FINDINGS: Image quality: Excellent. ABDOMEN: Lung bases: Lung bases are clear. Heart size is normal. Solid organs: The liver is hypoattenuating, consistent with diffuse fatty infiltration. A subcentime ter hypoattenuating lesion in the left lobe is most likely a cyst. Gallbladder is unremarkable. Bilia ry system is non dilated. Diffuse peripancreatic edema is seen that is suspicious for acute pancreatitis. No focal nonenhanceme nt of the pancreas is seen to suggest acute necrosis. Pancreatic duct measures up to 5 mm in diameter . No dissecting calcification is seen distally. No well-formed peripancreatic fluid collection is see n. The portal vein, splenic vein, and superior mesenteric vein are patent. No arterial aneurysm is se en. Spleen is normal in size. No adrenal nodules. Kidneys demonstrate normal size and enhancement, witho ut hydronephrosis. Peritoneum and bowel: Colonic diverticula are seen without signs of acute diverticulitis. No signs of small bowel obstruction. No free fluid or air. Nodes and vessels: No retroperitoneal or mesenteric adenopathy by size criteria. Aorta and inferior vena cava are normal in size. Miscellaneous: Small fat-containing periumbilical hernia. PELVIS: Genitourinary: Bladder wall thickness is normal. Miscellaneous: No inguinal hernias or adenopathy. Bones: No suspicious bony lesions. No vertebral body compression fractures. IMPRESSION: 1.Acute pancreatitis without signs of pancreatic necrosis. No acute peripancreatic fluid collection. 2.Diffuse hepatic steatosis. 3.Colonic diverticulosis Reviewed by: Armando Rojas MD on 08/18/2022 7:49 PM PST Approved by: Armando Rojas MD on 08/18/2022 7:49 PM PST Station ID: [id number]
[2022-08-18] MEDS ORDERED: oxyCODONE/ACET 5/325 Prepack 4 PO STA (19:57)
[2022-08-18] MEDS ORDERED: ONDANSETRON ODT 4 MG Prepack 2 TL STA (20:00)
[2022-08-18 20:27] VITALS: BP 177/114
== END 2022-08-18 20:29 | disposition home or self-care (01) ==
LOC: ED 15:42
DX: K86.0 Alcohol-induced chronic pancreatitis (principal); F17.200 Nicotine dependence, unspecified, uncomplicated
CPT/HCPCS: 36415; 74177; 80053; 80320; 83690; 85025; 96374; 96376; 99284; J1170; Q9967

== ENCOUNTER 2022-09-02 21:07 | Emergency (ER) | payer MEDICAID ==
[2022-09-02 21:39] LABS: BASOPHILS # (AUTO) 0.1 10^3/uL (0.0-0.1); BASOPHILS % (AUTO) 0.6 %; EOSINOPHILS # (AUTO) 0.2 10^3/uL (0.0-0.7); HCT - HEMATOCRIT 49.2 % (42.0-52.0); HGB - HEMOGLOBIN 16.9 g/dL (14.0-18.0); LYMPHOCYTES # (AUTO) 3.6 10^3/uL (1.5-3.5); LYMPHOCYTES % (AUTO) 20.6 %; MEAN CORPUSCULAR HEMOGLOBIN 32.9 pg (27.0-31.0); MEAN CORPUSCULAR HGB CONC 34.3 g/dL (32.0-36.0); MEAN CORPUSCULAR VOLUME 95.9 fL (80.0-94.0); MEAN PLATELET VOLUME 8.8 fL (7.4-11.4); MONOCYTES # (AUTO) 1.2 10^3/uL (0.0-1.0); MONOCYTES % (AUTO) 6.6 %; NEUTROPHILS # (AUTO) 12.3 10^3/uL (1.5-6.6); NEUTROPHILS % (AUTO) 70.9 %; PLT - PLATELET COUNT 566 10^3/uL (130-450); RED BLOOD COUNT 5.13 10^6/uL (4.70-6.10); WHITE BLOOD COUNT 17.4 x10^3/uL (4.8-10.8)
--- OUTSIDE RECORDS SUMMARY | 2022-09-02 21:41 | EXTERNAL MEDICAL SUMMARY RPT | Continuity of Care Document ---
:1975 Author Organization [facility] Address [address] [place] [address] Phone Care Team Providers Name Role Phone [...] Services Angelito 2022-06-14 00:00 trazodone [facility] Care & Ancillary Services Angelito [...] Care & Ancillary Services Angelito Result panel 5 (unknown) (no date) (unknown) [...]
[2022-09-02 21:53] LABS: ALBUMIN 4.1 g/dL (3.2-5.5); ALKALINE PHOSPHATASE 106 IU/L (42-121); ALT ALANINE AMINOTRANSFERASE 39 IU/L (10-60); AST ASPARTATE AMINOTRANSFERASE 47 IU/L (10-42); BILIRUBIN,TOTAL 1.1 mg/dL (0.2-1.0); BUN - BLOOD UREA NITROGEN 12 mg/dL (6-20); CALCIUM 9.7 mg/dL (8.5-10.3); CARBON DIOXIDE - CO2 22 mmol/L (21-32); CHLORIDE 95 mmol/L (101-111); CREATININE 0.7 mg/dL (0.6-1.2); ETOH - ETHANOL < 5.0 mg/dL; GFR - MDRD 121 (>89); GLUCOSE 145 mg/dL (70-100); LIPASE 140 U/L (22-51); MAGNESIUM 1.5 mg/dL (1.7-2.8); PHOSPHORUS 2.5 mg/dL (2.5-4.6); POTASSIUM 3.4 mmol/L (3.5-5.0); SODIUM 134 mmol/L (135-145)
[2022-09-02 22:01] LABS: ALBUMIN/GLOBULIN RATIO 1.1 (1.0-2.2)
[2022-09-02 22:11] LABS: GLUCOSE, URINE (UA) NEGATIVE (NEGATIVE); KETONES,URINE (UA) 15 mg/dL (NEGATIVE); LEUKOCYTE ESTERASE, URINE NEGATIVE (NEGATIVE); NITRITE,URINE NEGATIVE (NEGATIVE); OCCULT BLOOD,URINE NEGATIVE (NEGATIVE); PROTEIN,URINE 30 mg/dL (NEGATIVE); UROBILINOGEN,URINE 0.2 (NORMAL) E.U./dL (NORMAL)
[2022-09-02 22:17] LABS: BILIRUBIN,URINE NEGATIVE (NEGATIVE); CLARITY,URINE CLEAR (CLEAR); ICTOTEST,URINE NEGATIVE
[2022-09-02 22:19] LABS: RBC,URINE 0-5 /HPF (0-5); SQUAMOUS EPITHELIAL CELL,UR RARE Squamous (<= Few); WBC,URINE 0-3 /HPF (0-3)
[2022-09-02 22:20] LABS: BACTERIA,URINE Few /HPF (None Seen); MUCUS,URINE Marked Strands
[2022-09-02] MEDS ORDERED: KETOROLAC 30 MG/ML VIAL IVP STA (23:08)
--- NOTE | 2022-09-02 23:16 | ED Physician Documentation ---
PD HPI ABD PAIN - Stated complaint Stated Complaint: ABD PX - Chief complaint Chief Complaint: Abd Pain - Additional information Additional information: HPI from patient. Patient complains of abdominal pain, diffuse but predominantly across the upper abdomen and most pronounced in the epigastric area, radiating to back. This is associated with nausea and vomiting.The pain began gradually this morning and has been constant all day, steadily progressive in severity. He says he was feeling well yesterday except for very poor appetite, which he has had for the past 4-5 days. Patient says the symptoms that he has on presentation tonight are similar to previous episodes of pancreatitis. Patient was treated and released from this emergency department August 19, 2022 for similar symptoms, found to have pancreatitis (including on CT abdomen and pelvis performed at that time), but symptoms were controlled and he was able to be discharged from the emergency department. He has been admitted to this hospital on other, previous visits for the symptoms. Regarding his recurrent pancreatitis, when I ask him if a cause has been determined, he says "it used to be alcohol" but says that he has not drank any alcohol "for over a week or two". Thinks that perhaps his diet, particularly spicy foods, might be causing the symptoms. Review of Systems Constitutional: reports: Sweats. denies: Fever, Chills Cardiac: reports: Reviewed and negative Respiratory: reports: Reviewed and negative GI: reports: Abdominal Pain, Nausea, Vomiting. denies: Constipation, Diarrhea, Hematemesis, Bloody / black stool PD PAST MEDICAL HISTORY - Past Medical History Cardiovascular: None Respiratory: None Neuro: None Endocrine/Autoimmune: None GI: Pancreatitis, Other : None HEENT: None Psych: Anxiety Musculoskeletal: Chronic back pain, Other (Right lateral hip pain diagnosed as trochanteric tendinitis with previous physical therapy and some anti- inflammatories. Ongoing pain in that area.) Derm: Other - Past Surgical History Past Surgical History: No - Present Medications Home Medications: Ambulatory Orders Medication Instructions Recorded Confirmed Escitalopram Oxalate 20 mg PO DAILY 10/17/21 02/23/22 Gabapentin [Neurontin] 300 mg PO BID 10/17/21 02/23/22 Propranolol HCl 20 mg PO BID PRN 10/17/21 02/23/22 tiZANidine [Zanaflex] 4 mg PO Q8H PRN #25 tablet 10/17/21 Dicyclomine [Bentyl] 10 mg PO TID PRN 02/23/22 02/23/22 traZODone [Desyrel] 25 mg PO HS PRN 02/23/22 02/23/22 Ondansetron Odt [Zofran Odt] 4 mg TL Q6H PRN #10 tablet 02/26/22 amLODIPine [Norvasc] 5 mg PO DAILY #30 tablet 02/26/22 oxyCODONE [Roxicodone] 5 mg PO Q4HR PRN #16 tablet 02/26/22 Ondansetron Odt [Zofran] 4 mg TL Q6H PRN #10 tablet 06/10/22 Oxycodone HCl/Acetaminophen 1 - 2 each PO Q6H PRN #14 tablet 06/10/22 [Percocet 5-325 mg Tablet] Ondansetron Odt [Zofran] 4 mg TL Q6H PRN #10 tablet 08/18/22 Oxycodone HCl/Acetaminophen 1 - 2 each PO Q6H PRN #14 tablet 08/18/22 [Percocet 5-325 mg Tablet] Promethazine [Phenergan] 25 mg PO Q6H PRN #10 tab 09/03/22 oxyCODONE [Roxicodone] 5 - 10 mg PO Q6H PRN #20 tablet 09/03/22 - Allergies Allergies/Adverse Reactions: Allergies Allergy/AdvReac Type Severity Reaction Status Date / Time No Known Drug Allergies Allergy Verified 09/02/22 21:13 - Social History Does the pt smoke?: Yes Smoking Status: Current every day smoker Does the pt drink ETOH?: Yes Does the pt have substance abuse?: No - Immunizations Immunizations are current?: Yes - POLST Patient has POLST: No POLST Status: Full Code PD ED PE NORMAL - Vitals Vital signs reviewed: Yes - General General: Alert and oriented X 3, Well developed/nourished, Other (Patient is vomiting when I first walked into the room. During H&P, he is in waxing and waning visible painful distress.) - Neck Neck: Supple, no meningeal sign - Cardiac Cardiac: RRR, No murmur - Respiratory Respiratory: No respiratory distress, Clear bilaterally - Abdomen Abdomen: Soft, Non distended, Other (tenderness across upper abdomen, most pronounced at epigastrium. no rebound or guarding) - Back Back: No CVA TTP - Derm Derm: Normal color, Warm and dry Results - Vitals Vitals: Oxygen O2 Source Room air - Labs Labs: Laboratory Tests 09/02/22 09/02/22 09/02/22 21:35 21:35 22:01 WBC 17.4 H RBC 5.13 Hgb 16.9 Hct 49.2 MCV 95.9 H MCH 32.9 H MCHC 34.3 RDW 13.0 Plt Count 566 H MPV 8.8 Neut # (Auto) 12.3 H Lymph # (Auto) 3.6 H [place] # (Auto) 1.2 H Eos # (Auto) 0.2 Baso # (Auto) 0.1 Absolute Nucleated RBC 0.00 Nucleated RBC % 0.0 Sodium 134 L Potassium 3.4 L Chloride 95 L Carbon Dioxide 22 Anion Gap 17.0 H BUN 12 Creatinine 0.7 Estimated GFR (MDRD) 121 Glucose 145 H Calcium 9.7 Phosphorus 2.5 Magnesium 1.5 L Total Bilirubin 1.1 H AST 47 H ALT 39 Alkaline Phosphatase 106 Total Protein 8.0 Albumin 4.1 Globulin 3.9 Albumin/Globulin Ratio 1.1 Lipase 140 H Urine Color DARK YELLOW Urine Clarity CLEAR Urine pH 6.0 Ur Specific [place] 1.025 Urine Protein 30 H Urine Glucose (UA) NEGATIVE Urine Ketones 15 H Urine Occult Blood NEGATIVE Urine Nitrite NEGATIVE Urine Bilirubin NEGATIVE Urine Urobilinogen 0.2 (NORMAL) Ur Leukocyte Esterase NEGATIVE Urine RBC 0-5 Urine WBC 0-3 Ur Squamous Epith Cells RARE Squamous Urine Bacteria Few Urine Mucus Marked Strands Ur Microscopic Review INDICATED Urine Culture Comments NOT INDICATED Ethyl Alcohol < 5.0 PD Medical Decision Making - ED course Complexity details: reviewed results, re-evaluated patient, considered differential, d/w patient ED course: Tests ordered, and results reviewed by me: CBC, ER abdominal panel, urinalysis. IV is established and he is given 1 L normal saline IV bolus, 30 mg Toradol IV, 1 mg Dilaudid IV, and 25 mg Phenergan IV. On reevaluation, he is asleep but awakens to verbal stimulus, NAD and reports significant improvement in symptoms. CT A/P with IV contrast shows pancreatic edema, findings c/w pancreatitis although improved compared to CT A/P from last month's ED visit. Patient is observed in ED overnight (over nine hours) and had ongoing symptom relief with the single doses of toradol, dilaudid, and phenergan. Resuilts d/w patient as were return precautions. He is comfortable with d/c home. Prescriptions for oxycodone and phenergan are electronically submitted to patient's pharmacy of choice Old records reviewed: I reviewed the ED physicians notes from most recent visit (August 18, 2022), as well as the CAT scan performed that night which revealed acute pancreatitis without signs of pancreatic necrosis. Departure - Departure Disposition: Home, Self Care Clinical Impression: Pancreatitis Qualifiers: Chronicity: acute Pancreatitis type: unspecified pancreatitis type Acute pancreatitis complication: no infection or necrosis Qualified Code(s): K85.90 - Acute pancreatitis without necrosis or infection, unspecified Condition: Good Instructions: ED Pancreatitis Prescriptions: Promethazine [Phenergan] 25 mg PO Q6H PRN #10 tab PRN Reason: Nausea / Vomiting oxyCODONE [Roxicodone] 5 - 10 mg PO Q6H PRN #20 tablet PRN Reason: Pain Comments: The CT scan again demonstrates pancreatitis; however, it is significantly improved compared to the CT scan performed in this emergency department a few weeks ago. Similarly, your lipase (pancreatic enzyme test), though elevated, is also significantly improved compared to the previous result when you were last in this ER. Your white blood cell count is also elevated, but it is comparable to the previous result. As we discussed, in this situation, it is safe and appropriate to discharge you home provided that symptoms have been adequately controlled in the emergency department. I have electronically submitted prescriptions for oxycodone (narcotic/opiate pain medication) and Phenergan (antinausea medication) to the [facility] in [place]. Certainly, if your symptoms worsen in any way, or if the symptoms are not adequately controlled with the prescribed medication, you can return to the emergency department for reevaluation. Otherwise, I recommend you contact your primary care provider when the office opens later this morning to arrange for the next available appointment for reevaluation. I am prescribing a short course of narcotic pain medication for you. These are potentially dangerous and addictive medications that should be used carefully. These medications may constipate you. Take an qoef-rhx-uovxmfw stool softener (docusate) twice daily with plenty of water while taking these medications. If y ou go 24 hours without a bowel movement, take biwu-dwb-zkbtwgk miralax, per package instructions. Do not drink or drive while taking these medications. If you received narcotic or sedating medications while in the emergency department, do not drive for 24 hours. Store this medication in a safe, secure place and out of reach of children. It is a violation of federal law to give or sell this medication to another person or to use in a manner other than prescribed. The ED will not refill narcotic prescriptions, including prescriptions lost or stolen. To dispose of unwanted medications: 1. [facility] [address] in [place] has a medication drop box. They accept prescription medications (in pill form) Tuesday through Tuesday 9:00 a.m. to 5:00 p.m. 2. The [facility] accepts prescription medications (in pill form only) for disposal year round. Call for more information. 3. Contact the [facility] for the next [facility] sponsored prescription drug collection event. , [phone], or [phone]; Discharge Date/Time: 09/03/22 06:20
[2022-09-02] MEDS ORDERED: PROMETHAZINE INJ 25 MG in SODIUM CHLORIDE 0.9% 50 ML IV STA (23:42)
[2022-09-02] MEDS ORDERED: HYDROmorphone 1 MG/ML CARPUJECT IVP STA (23:42)
[2022-09-02] MEDS ORDERED: PROMETHAZINE 25 MG/1 ML VIAL ONE (23:56)
[2022-09-03] MEDS ORDERED: SODIUM CHLORIDE 0.9% 1,000 ML IV STA (00:11)
[2022-09-03] MEDS ORDERED: iohexoL-300 100 ML VIAL ONE (01:54)
[2022-09-03] MEDS ORDERED: iohexoL-300 100 ML VIAL IVP ONE (03:12)
[2022-09-03 07:09] VITALS: BP 133/85
--- NOTE | 2022-09-03 08:20 | CT Report ---
PROCEDURE: ABDOMEN/PELVIS W INDICATIONS: abdominal pain, h/o pancreatitis (recurrent) CONTRAST: Omni 300 100ml TECHNIQUE: After the administration of intravenous contrast, 5 mm thick sections acquired from the diaphragms to the symphysis. 5 mm thick coronal and sagittal reformats were acquired. For radiation dose reducti on, the following was used: automated exposure control, adjustment of mA and/or kV according to [place] ent size. COMPARISON: 08/18/2022 FINDINGS: Image quality: Excellent. ABDOMEN: Lung bases: Lung bases are clear. Heart size is normal. Solid organs: Liver and spleen are normal in size and enhancement. Diffuse hepatic steatosis. Gallb ladder is unremarkable without calcified gallstones. Biliary system is non dilated. Again noted are diffuse changes in the pancreas of acute pancreatitis. There is diffuse edema of the pancreas and per ipancreatic fluid. There is vague low density that is developing at the level of the distal body of t he pancreas, possibly a developing pseudocyst or very early changes of pancreatic necrosis. This invo lves a very small area on image 30/3. No free air or abscess. No adrenal nodules. Kidneys demonstrat e normal size and enhancement, without hydronephrosis. Peritoneum and bowel: Bowel loops demonstrate normal wall thickness and caliber. No free fluid or a ir. Nodes and vessels: No retroperitoneal or mesenteric adenopathy by size criteria. Aorta and inferior vena cava are normal in size. Miscellaneous: No ventral hernias. PELVIS: Genitourinary: Bladder wall thickness is normal. Miscellaneous: No inguinal hernias or adenopathy. Bones: No suspicious bony lesions. No vertebral body compression fractures. Lumbar degenerative ch jaime. Disc bulge at L4-L5 contributes to canal stenosis. IMPRESSION: 1. Continued changes of acute pancreatitis. Overall, the appearance is similar. There is a vague low density developing at the level of the distal body of the pancreas, possibly a small developing pseud ocyst or very early changes of pancreatic necrosis. There is no free air or abscess. 2. Diffuse hepatic steatosis. Findings are concordant with preliminary interpretation provided by [facility]. Reviewed by: Jules Dominguez MD on 09/03/2022 8:18 AM PST Approved by: Jules Dominguez MD on 09/03/2022 8:18 AM PST Station ID: [id number]
== END 2022-09-03 06:20 | disposition home or self-care (01) ==
LOC: ED 21:07
DX: K85.90 Acute pancreatitis without necrosis or infection, unspecified (principal); F17.200 Nicotine dependence, unspecified, uncomplicated
CPT/HCPCS: 36415; 74177; 80053; 80320; 81001; 83690; 83735; 84100; 85025; 96365; 96375; 99283; 99284; J1170; J7040; Q9967; 81003; 87086

== ENCOUNTER 2022-10-01 17:52 | Inpatient (IN) | payer MEDICAID ==
[2022-10-01] MEDS ORDERED: SODIUM CHLORIDE 0.9% 1,000 ML IV STA (17:59)
[2022-10-01 18:24] LABS: BASOPHILS # (AUTO) 0.1 10^3/uL (0.0-0.1); BASOPHILS % (AUTO) 0.5 %; EOSINOPHILS # (AUTO) 0.2 10^3/uL (0.0-0.7); EOSINOPHILS % (AUTO) 1.1 %; HCT - HEMATOCRIT 49.9 % (42.0-52.0); HGB - HEMOGLOBIN 16.6 g/dL (14.0-18.0); LYMPHOCYTES # (AUTO) 2.8 10^3/uL (1.5-3.5); LYMPHOCYTES % (AUTO) 16.8 %; MEAN CORPUSCULAR HEMOGLOBIN 32.5 pg (27.0-31.0); MEAN CORPUSCULAR HGB CONC 33.3 g/dL (32.0-36.0); MEAN CORPUSCULAR VOLUME 97.7 fL (80.0-94.0); MEAN PLATELET VOLUME 8.8 fL (7.4-11.4); MONOCYTES # (AUTO) 1.1 10^3/uL (0.0-1.0); MONOCYTES % (AUTO) 6.7 %; NEUTROPHILS # (AUTO) 12.2 10^3/uL (1.5-6.6); NEUTROPHILS % (AUTO) 74.3 %; PLT - PLATELET COUNT 600 10^3/uL (130-450); RED BLOOD COUNT 5.11 10^6/uL (4.70-6.10); RED CELL DISTRIBUTION WIDTH 13.6 % (12.0-15.0); WHITE BLOOD COUNT 16.5 x10^3/uL (4.8-10.8)
[2022-10-01 18:36] LABS: ALBUMIN 3.8 g/dL (3.2-5.5); ALBUMIN/GLOBULIN RATIO 1.1 (1.0-2.2); ALKALINE PHOSPHATASE 102 IU/L (42-121); ALT ALANINE AMINOTRANSFERASE 24 IU/L (10-60); AST ASPARTATE AMINOTRANSFERASE 35 IU/L (10-42); BILIRUBIN,TOTAL 0.9 mg/dL (0.2-1.0); BUN - BLOOD UREA NITROGEN 6 mg/dL (6-20); CALCIUM 9.6 mg/dL (8.5-10.3); CARBON DIOXIDE - CO2 29 mmol/L (21-32); CHLORIDE 97 mmol/L (101-111); CREATININE 0.7 mg/dL (0.6-1.2); ETOH - ETHANOL < 5.0 mg/dL; GFR - MDRD 121 (>89); GLUCOSE 166 mg/dL (70-100); LIPASE 298 U/L (22-51); POTASSIUM 3.5 mmol/L (3.5-5.0); SODIUM 141 mmol/L (135-145); TOTAL PROTEIN 7.3 g/dL (6.7-8.2)
[2022-10-01] MEDS ORDERED: ONDANSETRON 4 MG/2 ML VIAL IVP STA (18:39)
[2022-10-01] MEDS ORDERED: HYDROmorphone 1 MG/ML CARPUJECT IVP STA ×3 (18:39→20:16)
--- NOTE | 2022-10-01 18:40 | ED Physician Documentation ---
PD HPI ABD PAIN - Stated complaint Stated Complaint: ABD/BACK PX - Chief complaint Chief Complaint: Abd Pain - History obtained from History obtained from: Patient - Additional information Additional information: 46-year-old gentleman with recurrent pancreatitis. He does have a history of alcoholism but has been drinking much less than usual lately. Did drink a couple of weeks ago. Last 3 days he had severe upper abdominal pain and left upper quadrant pain associate with vomiting but no hematemesis. His bowel movements had been normal until today he had diarrhea. Feels similar to but worse than prior pancreatitis. PD PAST MEDICAL HISTORY - Past Medical History Cardiovascular: None Respiratory: None Neuro: None Endocrine/Autoimmune: None GI: Pancreatitis, Other : None HEENT: None Psych: Anxiety Musculoskeletal: Chronic back pain, Other (Right lateral hip pain diagnosed as trochanteric tendinitis with previous physical therapy and some anti- inflammatories. Ongoing pain in that area.) Derm: Other - Past Surgical History Past Surgical History: No - Present Medications Home Medications: Ambulatory Orders Medication Instructions Recorded Confirmed Escitalopram Oxalate 20 mg PO DAILY 10/17/21 02/23/22 Gabapentin [Neurontin] 300 mg PO BID 10/17/21 02/23/22 Propranolol HCl 20 mg PO BID PRN 10/17/21 02/23/22 tiZANidine [Zanaflex] 4 mg PO Q8H PRN #25 tablet 10/17/21 Dicyclomine [Bentyl] 10 mg PO TID PRN 02/23/22 02/23/22 traZODone [Desyrel] 25 mg PO HS PRN 02/23/22 02/23/22 Ondansetron Odt [Zofran Odt] 4 mg TL Q6H PRN #10 tablet 02/26/22 amLODIPine [Norvasc] 5 mg PO DAILY #30 tablet 02/26/22 oxyCODONE [Roxicodone] 5 mg PO Q4HR PRN #16 tablet 02/26/22 Ondansetron Odt [Zofran] 4 mg TL Q6H PRN #10 tablet 06/10/22 Oxycodone HCl/Acetaminophen 1 - 2 each PO Q6H PRN #14 tablet 06/10/22 [Percocet 5-325 mg Tablet] Ondansetron Odt [Zofran] 4 mg TL Q6H PRN #10 tablet 08/18/22 Oxycodone HCl/Acetaminophen 1 - 2 each PO Q6H PRN #14 tablet 08/18/22 [Percocet 5-325 mg Tablet] Promethazine [Phenergan] 25 mg PO Q6H PRN #10 tab 09/03/22 oxyCODONE [Roxicodone] 5 - 10 mg PO Q6H PRN #20 tablet 09/03/22 - Allergies Allergies/Adverse Reactions: Allergies Allergy/AdvReac Type Severity Reaction Status Date / Time No Known Drug Allergies Allergy Verified 10/01/22 18:24 - Social History Does the pt smoke?: Yes Smoking Status: Current every day smoker Does the pt drink ETOH?: Yes Does the pt have substance abuse?: No - Immunizations Immunizations are current?: Yes - POLST Patient has POLST: No POLST Status: Full Code PD ED PE NORMAL - Vitals Vital signs reviewed: Yes - General General: Alert and oriented X 3, Other (He appears uncomfortable and is retching) - Cardiac Cardiac: RRR, No murmur - Respiratory Respiratory: No respiratory distress, Clear bilaterally - Abdomen Abdomen: Normal bowel sounds, Soft, Other (Tender in the left upper quadrant and epigastrium without surgical signs) - Derm Derm: Normal color, Warm and dry - Neuro Neuro: Alert and oriented X 3, Normal speech Results - Vitals Vitals: Vital Signs - 24 hr 10/01/22 10/01/22 10/01/22 18:19 18:56 19:30 Temperature 36.9 C Heart Rate 106 H 94 89 Respiratory 16 16 16 Rate Blood Pressure 148/106 H 159/103 H 147/96 H O2 Saturation 100 99 94 Oxygen O2 Source Room air - Labs Labs: Laboratory Tests 10/01/22 10/01/22 18:15 18:15 WBC 16.5 H RBC 5.11 Hgb 16.6 Hct 49.9 MCV 97.7 H MCH 32.5 H MCHC 33.3 RDW 13.6 Plt Count 600 H MPV 8.8 Neut # (Auto) 12.2 H Lymph # (Auto) 2.8 [place] # (Auto) 1.1 H Eos # (Auto) 0.2 Baso # (Auto) 0.1 Absolute Nucleated RBC 0.00 Nucleated RBC % 0.0 Sodium 141 Potassium 3.5 Chloride 97 L Carbon Dioxide 29 Anion Gap 15.0 H BUN 6 Creatinine 0.7 Estimated GFR (MDRD) 121 Glucose 166 H Calcium 9.6 Total Bilirubin 0.9 AST 35 ALT 24 Alkaline Phosphatase 102 Total Protein 7.3 Albumin 3.8 Globulin 3.5 Albumin/Globulin Ratio 1.1 Lipase 298 H Ethyl Alcohol < 5.0 PD Medical Decision Making - ED course ED course: 46-year-old gentleman with recurrent alcoholic pancreatitis presents with apparent exacerbation of same. CBC reviewed and notable for modest leukocytosis with thrombocytosis. CMP reviewed and notable for elevated lipase with normal liver enzymes. Blood alcohol level negative. He did have significant pain here and administered divided doses of Dilaudid with improvement but not toleration of his pain. Decision to admit made at 8:34 PM and telehealth hospitalist consult was placed. Departure - Departure Disposition: 66 [facility] DC/Marely Clinical Impression: Alcoholic pancreatitis Condition: Serious
[2022-10-01] MEDS ORDERED: iohexoL-300 100 ML VIAL ONE (20:44)
[2022-10-01] MEDS ORDERED: iohexoL-300 100 ML VIAL IVP ONE (21:12)
[2022-10-01] MEDS ORDERED: ONDANSETRON 4 MG/2 ML VIAL IVP PRN (21:14)
[2022-10-01] MEDS ORDERED: ACETAMINOPHEN 325 MG TABLET PO PRN (21:14)
[2022-10-01] MEDS ORDERED: SODIUM CHLORIDE FLUSH 0.9% 10 ML SYRINGE IVP PRN (21:14)
[2022-10-01] MEDS ORDERED: CALCIUM CARBONATE CHEW 500 MG TABLET PO ONE (21:16)
[2022-10-01] MEDS ORDERED: GI COCKTAIL 120 ML BOTTLE PO PRN (21:16)
[2022-10-01] MEDS ORDERED: chlordiazePOXIDE 25 MG CAPSULE PO ONE (21:16)
[2022-10-01] MEDS ORDERED: LORazepam 2 MG/ML VIAL IVP PRN (21:17)
--- NOTE | 2022-10-01 21:27 | HISTORY & PHYSICAL EXAMINATION ---
Chief Complaint - Chief Complaint Chief Complaint: Abdominal pain History of Present Illness - Admitted From Admitted From:: Home - History Obtained From Records Reviewed: Yes History obtained from: Patient and ER MD Exam Limitations: Telemedicine - History of Present Illness HPI Comment/Other: 46-year-old gentleman with recurrent pancreatitis. He does have a history of alcoholism but has been drinking much less than usual lately. Did drink a couple of weeks ago. Last 3 days he had severe upper abdominal pain and left upper quadrant pain associate with vomiting but no hematemesis. His bowel movements had been normal until today he had diarrhea. Feels similar to but worse than prior pancreatitis. 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, denies any fever no chills no other complaints, states was exposed to some chemical earlier this weak Pain in in the midepigastric area comes and goes feels like a squeezing sensation last drink few days aogo and does state that he has cut down his drinking History - Past Medical History Cardiovascular: reports: None Respiratory: reports: None Neuro: reports: None Endocrine/Autoimmune: reports: None GI: reports: Pancreatitis, Other : reports: None HEENT: reports: None Psych: reports: Anxiety, Other (ETOH use) Musculoskeletal: reports: Chronic back pain, Other (Right lateral hip pain diagnosed as trochanteric tendinitis with previous physical therapy and some anti-inflammatories. Ongoing pain in that area.) Derm: reports: Other - Family & Social History Family History Comment/Other: His father has an unknown known cardiac history. His mother has a history abdominal pain which is believed to be related to dairy products. Living Situation: With family Social History Notes: He lives at home with his and child. He drinks 4 alcoholic beverages a night. He has been drinking for nearly 30 years but has quit at times for a few months. He has not been eating for about 6 months since he last quit. He does smoke about a pack a day for nearly 30 years as well. He no longer smokes marijuana. He denies any illicit drug use. - POLST Patient has POLST: No POLST Status: Full Code Meds/Allgy - Home Medications Home Medications: Ambulatory Orders Medication Instructions Recorded Confirmed Escitalopram Oxalate 20 mg PO DAILY 10/17/21 02/23/22 Gabapentin [Neurontin] 300 mg PO BID 10/17/21 02/23/22 Propranolol HCl 20 mg PO BID PRN 10/17/21 02/23/22 tiZANidine [Zanaflex] 4 mg PO Q8H PRN #25 tablet 10/17/21 Dicyclomine [Bentyl] 10 mg PO TID PRN 02/23/22 02/23/22 traZODone [Desyrel] 25 mg PO HS PRN 02/23/22 02/23/22 Ondansetron Odt [Zofran Odt] 4 mg TL Q6H PRN #10 tablet 02/26/22 amLODIPine [Norvasc] 5 mg PO DAILY #30 tablet 02/26/22 oxyCODONE [Roxicodone] 5 mg PO Q4HR PRN #16 tablet 02/26/22 Ondansetron Odt [Zofran] 4 mg TL Q6H PRN #10 tablet 06/10/22 Oxycodone HCl/Acetaminophen 1 - 2 each PO Q6H PRN #14 tablet 06/10/22 [Percocet 5-325 mg Tablet] Ondansetron Odt [Zofran] 4 mg TL Q6H PRN #10 tablet 08/18/22 Oxycodone HCl/Acetaminophen 1 - 2 each PO Q6H PRN #14 tablet 08/18/22 [Percocet 5-325 mg Tablet] Promethazine [Phenergan] 25 mg PO Q6H PRN #10 tab 09/03/22 oxyCODONE [Roxicodone] 5 - 10 mg PO Q6H PRN #20 tablet 09/03/22 - Allergies Allergies/Adverse Reactions: Allergies Allergy/AdvReac Type Severity Reaction Status Date / Time No Known Drug Allergies Allergy Verified 10/01/22 18:24 Review of Systems - Gastrointestinal Gastrointestinal: reports: Abdominal pain, Reflux/heartburn Prior Level of Functionality: Independent Exam - Vital Signs Vital Signs: Vital Signs x48h Temp Pulse Resp BP Pulse Ox 10/01/22 21:00 88 20 153/106 H 96 10/01/22 19:30 89 16 147/96 H 94 10/01/22 18:56 94 16 159/103 H 99 10/01/22 18:19 36.9 C 106 H 16 148/106 H 100 - Physical Exam General Appearance: positive: No acute distress, Alert Eyes Bilateral: positive: Normal inspection, PERRL, EOMI ENT: positive: Pharynx nml, No signs of dehydration Neck: positive: Thyroid nml, No JVD Cardiovascular: positive: Regular rate & rhythm Abdomen: positive: Tenderness Back: positive: Nml inspection, CVA tenderness (R) Skin: positive: Color nml, No rash, Warm Neurologic/Psychiatric: positive: Oriented x3, CN's nml (2-12) Sepsis Event Note (H) - Evaluation Current Stage of Sepsis: Ruled out Conclusion/Plan - Problem List (1) Alcoholic pancreatitis Conclusion/Plan: Admit to med surg for observation Pain meds GI cocktail zofran prn clinical close monitoring and if able to tolerate po intake ok to start on clears likely in am Repeat labs (2) Abdominal pain Conclusion/Plan: Sercondary to acute pancreatitis Pain meds Qualifiers: Abdominal location: upper abdomen, unspecified Qualified Code(s): R10.10 - Upper abdominal pain, unspecified (3) Alcohol use disorder Conclusion/Plan: [employer] to provide resources (4) Anxiety Conclusion/Plan: Resume home medication plan to give Ativan prn - Lab Results Fish Bones: 10/01/22 18:15 10/01/22 18:15 - Diagnostic Imaging Results Diagnostic Imaging Results: positive: Prelim report reviewed - EKG Results EKG Interpreted Independently: No
[2022-10-01] MEDS ORDERED: PROPRANOLOL 10 MG TABLET PO PRN (21:56)
[2022-10-01] MEDS: SODIUM CHLORIDE 0.9% 1,000 ML IV SCH (22:04)
--- NOTE | 2022-10-01 22:04 | CT Report ---
PROCEDURE: ABDOMEN/PELVIS W INDICATIONS: IV only, pancreatitis CONTRAST: 100 ML OMNI 300 TECHNIQUE: After the administration of intravenous contrast, 5 mm thick sections acquired from the diaphragms to the symphysis. 5 mm thick coronal and sagittal reformats were acquired. For radiation dose reducti on, the following was used: automated exposure control, adjustment of mA and/or kV according to [place] ent size. COMPARISON: CT abdomen pelvis 09/03/2022, 08/18/2022, 06/10/2022. FINDINGS: Image quality: Excellent. Lung bases:There is mild dependent atelectasis bilaterally. Heart: Heart is normal in size. ABDOMEN: Liver:There is hypoattenuation of the liver consistent with fatty infiltration. There is a small cys t laterally in the left hepatic lobe. Gallbladder: Within normal limits without calcified gallstones. Biliary ducts: No biliary ductal dilatation. Pancreas:There is decreased peripancreatic fat stranding and fluid compared to the prior study. Find ings are consistent with residual sequelae of pancreatitis. There is a small hypoenhancing region wit hin the pancreatic tail consistent with necrosis which is more well-defined compared to the prior nicole dy. No acute peripancreatic fluid collections. Spleen: Normal in size. Adrenal Glands: No adrenal nodules. Kidneys and Ureters: No hydronephrosis. Stomach and Bowel:There is prominent gastric wall thickening with mucosal enhancement consistent wit h a gastritis. A small amount of loculated fluid is demonstrated tracking laterally along the gastric fundus. Small bowel loops are normal in caliber and wall thickness. No pericecal inflammatory change s to suggest appendicitis. There is colonic diverticulosis without acute diverticulitis. Mild segment al wall thickening within the sigmoid colon may reflect a mild colitis. Peritoneum:There is a small amount of intraperitoneal free fluid in the pelvis. No free air. Ventral Wall: No hernia. Abdominal Nodes: No retroperitoneal or mesenteric adenopathy by size criteria. Vessels: Aorta and inferior vena cava are normal in size. PELVIS: Pelvic Organs: Unremarkable. Bladder: Unremarkable. Pelvic Nodes: No enlarged lymph nodes. Miscellaneous: No inguinal hernias. Bones: Visualized osseous structures demonstrate no suspicious lesions. IMPRESSION: 1. Interval decreased peripancreatic fat stranding and fluid consistent with residual sequelae of brewster creatitis. A small region of hypoenhancement in the pancreatic tail is consistent with necrosis and a ppears more well-defined compared to the prior study. No acute peripancreatic fluid collections. 2. New prominent gastric wall thickening and mucosal enhancement consistent with a gastritis. A small amount of loculated fluid tracking along the lateral wall of the gastric fundus is nonspecific but m ay reflect sequelae of a contained perforation of a gastric ulcer. No free air identified. 3. Colonic diverticulosis without acute diverticulitis. 4. Mild wall thickening in the sigmoid colon may reflect a mild colitis. Reviewed by: Rony Moody MD on 10/01/2022 10:03 PM [facility] Approved by: Rony Moody MD on 10/01/2022 10:03 PM PST Station ID: [id number]
[2022-10-01] MEDS: SODIUM CHLORIDE FLUSH 0.9% 10 ML SYRINGE IVP SCH (22:38)
[2022-10-01] MEDS: HYDROmorphone 0.5 MG/0.5 ML SYRINGE IVP PRN (22:38)
[2022-10-01] MEDS: oxyCODONE 5 MG TABLET PO PRN (23:38)
[2022-10-02] MEDS: HYDROmorphone 0.5 MG/0.5 ML SYRINGE IVP PRN ×9 (00:04→21:11)
[2022-10-02] MEDS: oxyCODONE 5 MG TABLET PO PRN ×2 (04:09→08:46)
[2022-10-02 04:48] LABS: BASOPHILS # (AUTO) 0.1 10^3/uL (0.0-0.1); BASOPHILS % (AUTO) 0.5 %; EOSINOPHILS # (AUTO) 0.6 10^3/uL (0.0-0.7); EOSINOPHILS % (AUTO) 4.7 %; HCT - HEMATOCRIT 41.9 % (42.0-52.0); HGB - HEMOGLOBIN 13.9 g/dL (14.0-18.0); LYMPHOCYTES # (AUTO) 3.2 10^3/uL (1.5-3.5); LYMPHOCYTES % (AUTO) 25.2 %; MEAN CORPUSCULAR HEMOGLOBIN 32.6 pg (27.0-31.0); MEAN CORPUSCULAR HGB CONC 33.2 g/dL (32.0-36.0); MEAN CORPUSCULAR VOLUME 98.4 fL (80.0-94.0); MEAN PLATELET VOLUME 8.9 fL (7.4-11.4); MONOCYTES % (AUTO) 7.7 %; NEUTROPHILS # (AUTO) 7.9 10^3/uL (1.5-6.6); NEUTROPHILS % (AUTO) 61.5 %; PLT - PLATELET COUNT 478 10^3/uL (130-450); RED BLOOD COUNT 4.26 10^6/uL (4.70-6.10); WHITE BLOOD COUNT 12.9 x10^3/uL (4.8-10.8)
[2022-10-02] MEDS: diphenhydrAMINE INJ 50 MG/ML VIAL IVP PRN ×3 (07:07→21:12)
--- NOTE | 2022-10-02 07:46 | PHARMACY PROGRESS NOTE ---
- Best Possible Medication History Admit Date and Time: 10/01/222113 Processed by: Pharmacy Medication History completed: Yes Patient Interview: Completed Secondary Source(s): Pharmacy records As the person ultimately responsible for medication therapy, providers are able to order a medication from an existing home medication list in [facility] via the "Reconcile Routine" prior to Confirmation of that medication by applications support lead. Such practice is discouraged except when the physician, in their clinical judgment, deems that a medical need exists for a medication without regard to previous use.
[2022-10-02 07:51] LABS: ALBUMIN 2.9 g/dL (3.2-5.5); ALBUMIN/GLOBULIN RATIO 0.9 (1.0-2.2); BILIRUBIN,TOTAL 0.6 mg/dL (0.2-1.0); CALCIUM 8.5 mg/dL (8.5-10.3); CREATININE 0.6 mg/dL (0.6-1.2); POTASSIUM 3.1 mmol/L (3.5-5.0)
[2022-10-02 07:59] LABS: INR 1.3 (0.8-1.2); PT - PROTHROMBIN TIME 14.4 secs (9.9-12.6)
[2022-10-02] MEDS: SODIUM CHLORIDE 0.9% 1,000 ML IV SCH (08:23)
--- NOTE | 2022-10-02 08:40 | PROVIDER PROGRESS NOTE ---
Assessment/Plan - Current Meds Current Meds: Current Medications Generic Name Dose Route Start Last Admin Trade Name Sarika PRN Reason Stop Dose Admin Amlodipine Besylate 5 mg 10/02/22 09:00 10/02/22 08:28 Amlodipine 5 Mg Tablet PO 5 mg DAILY BENNIE Administration Diphenhydramine HCl 25 mg 10/02/22 04:55 10/02/22 07:07 Diphenhydramine Inj 50 Mg/Ml Vial IVP 25 mg Q6H PRN Administration Allergy Symptoms Escitalopram Oxalate 20 mg 10/02/22 09:00 10/02/22 08:26 Escitalopram 10 Mg Tablet PO 20 mg DAILY BENNIE Administration Gabapentin 300 mg 10/02/22 09:00 10/02/22 08:26 Gabapentin 300 Mg Capsule PO 300 mg BID BENNIE Administration Hydromorphone HCl 0.5 mg 10/01/22 21:14 10/02/22 07:07 Hydromorphone 0.5 Mg/0.5 Ml Syringe IVP 0.5 mg Q2H PRN Administration Pain 8 to 10 Sodium Chloride 1,000 mls @ 100 mls/hr 10/01/22 22:00 10/02/22 08:23 Normal Saline 0.9% IV 100 mls/hr .Q10H BENNIE Administration Multi-Ingredient Mouthwash/Gargle 30 ml 10/01/22 21:16 10/02/22 08:24 Gi Cocktail 120 Ml Bottle PO 30 ml Q4H PRN Administration Abdominal Pain Ondansetron HCl 4 mg 10/01/22 21:14 10/02/22 03:16 Ondansetron 4 Mg/2 Ml Vial IVP 4 mg Q6HR PRN Administration Nausea / Vomiting Oxycodone HCl 5 mg 10/01/22 21:14 10/02/22 04:09 Oxycodone 5 Mg Tablet PO 5 mg Q4HR PRN Administration Pain 5 to 7 Sodium Chloride 10 ml 10/02/22 01:00 10/01/22 22:38 Sodium Chloride Flush 0.9% 10 Ml Syringe IVP 10 ml 0100,0900,1700 BENNIE Administration - Lab Result Fish Bone Diagrams: 10/02/22 04:28 10/02/22 04:28 - Additional Planning My Orders: My Active Orders 10/02/22 07:37 CIWA - AR Score Card [RC] Q4HR Social Work Consult [CONS] Routine 10/02/22 09:00 Potassium Chlor 10 Meq/100 ml [Potassium Chloride] 10 meq in 100 ml IV Q1H amLODIPine [Norvasc] 5 mg PO DAILY Objective Vital Signs: Vital Signs - 24 hr 10/01/22 10/01/22 10/01/22 18:19 18:56 19:30 Temperature 36.9 C Heart Rate 106 H 94 89 Heart Rate [ Brachial] Respiratory 16 16 16 Rate Blood Pressure 148/106 H 159/103 H 147/96 H Blood Pressure [Right Brachial artery] O2 Saturation 100 99 94 10/01/22 10/01/22 10/01/22 21:00 21:53 22:23 Temperature 36.7 C Heart Rate 88 86 Heart Rate [ 94 Brachial] Respiratory 20 18 Rate Blood Pressure 153/106 H 141/99 H Blood Pressure 152/95 H [Right Brachial artery] O2 Saturation 96 95 97 10/01/22 10/02/22 10/02/22 23:31 04:01 07:48 Temperature 36.7 C 36.6 C 36.8 C Heart Rate Heart Rate [ 83 83 73 Brachial] Respiratory 21 20 20 Rate Blood Pressure Blood Pressure 116/85 H 123/89 H 128/80 [Right Brachial artery] O2 Saturation 96 94 94 Oxygen O2 Source Room air I&O (Last 24 Hrs): Intake and Output Totals x24h 09/30/22 10/01/22 10/02/22 23:59 23:59 23:59 Intake Total 1061.667 938.333 Balance 1061.667 938.333 - Results Results: Laboratory Results WBC 12.9 x10^3/uL (4.8-10.8) H 10/02/22 04:28 RBC 4.26 10^6/uL (4.70-6.10) L 10/02/22 04:28 Hgb 13.9 g/dL (14.0-18.0) L 10/02/22 04:28 Hct 41.9 % (42.0-52.0) L 10/02/22 04:28 MCV 98.4 fL (80.0-94.0) H 10/02/22 04:28 MCH 32.6 pg (27.0-31.0) H 10/02/22 04:28 MCHC 33.2 g/dL (32.0-36.0) 10/02/22 04:28 RDW 14.0 % (12.0-15.0) 10/02/22 04:28 Plt Count 478 10^3/uL (130-450) H 10/02/22 04:28 MPV 8.9 fL (7.4-11.4) 10/02/22 04:28 Neut # (Auto) 7.9 10^3/uL (1.5-6.6) H 10/02/22 04:28 Lymph # (Auto) 3.2 10^3/uL (1.5-3.5) 10/02/22 04:28 [place] # (Auto) 1.0 10^3/uL (0.0-1.0) 10/02/22 04:28 Eos # (Auto) 0.6 10^3/uL (0.0-0.7) 10/02/22 04:28 Baso # (Auto) 0.1 10^3/uL (0.0-0.1) 10/02/22 04:28 Absolute Nucleated RBC 0.00 x10^3/uL 10/02/22 04:28 Nucleated RBC % 0.0 /100WBC 10/02/22 04:28 PT 14.4 secs (9.9-12.6) H 10/02/22 07:46 INR 1.3 (0.8-1.2) H 10/02/22 07:46 Sodium 139 mmol/L (135-145) 10/02/22 04:28 Potassium 3.1 mmol/L (3.5-5.0) L 10/02/22 04:28 Chloride 101 mmol/L (101-111) 10/02/22 04:28 Carbon Dioxide 27 mmol/L (21-32) 10/02/22 04:28 Anion Gap 11.0 (6-13) 10/02/22 04:28 BUN 5 mg/dL (6-20) L 10/02/22 04:28 Creatinine 0.6 mg/dL (0.6-1.2) 10/02/22 04:28 Estimated GFR (MDRD) 145 (>89) 10/02/22 04:28 Glucose 113 mg/dL (70-100) H 10/02/22 04:28 Calcium 8.5 mg/dL (8.5-10.3) 10/02/22 04:28 Total Bilirubin 0.6 mg/dL (0.2-1.0) 10/02/22 04:28 AST 18 IU/L (10-42) 10/02/22 04:28 ALT 15 IU/L (10-60) 10/02/22 04:28 Alkaline Phosphatase 77 IU/L (42-121) 10/02/22 04:28 Total Protein 6.0 g/dL (6.7-8.2) L 10/02/22 04:28 Albumin 2.9 g/dL (3.2-5.5) L 10/02/22 04:28 Globulin 3.1 g/dL (2.1-4.2) 10/02/22 04:28 Albumin/Globulin Ratio 0.9 (1.0-2.2) L 10/02/22 04:28 Lipase 187 U/L (22-51) H 10/02/22 04:28 Ethyl Alcohol < 5.0 mg/dL 10/01/22 18:15 Sepsis Event Note (H) - Evaluation Current Stage of Sepsis: Ruled out
[2022-10-02] MEDS: POTASSIUM CHLOR 10 MEQ/100 ML 10 MEQ/100 ML BAG IV SCH ×4 (08:46→12:11)
[2022-10-02] MEDS ORDERED: amLODIPine 5 MG TABLET PO SCH ×2 (09:00)
[2022-10-02] MEDS ORDERED: ESCITALOPRAM 10 MG TABLET PO SCH (09:00)
[2022-10-02] MEDS ORDERED: GABAPENTIN 300 MG CAPSULE PO SCH (09:00)
--- NOTE | 2022-10-02 11:11 | XRAY Report ---
PROCEDURE: Chest 1 View X-Ray INDICATIONS: chest pain, to L shoulder, poss gastric perf on CT TECHNIQUE: One view of the chest was acquired. COMPARISON: None. FINDINGS: Surgical changes and devices: None. Lungs and pleura: No pleural effusions or pneumothorax. Lungs are clear. Mediastinum: Mediastinal contours appear normal. Heart size is normal. Bones and chest wall: No suspicious bony lesions. Overlying soft tissues appear unremarkable. IMPRESSION: No acute cardiopulmonary abnormality. Reviewed by: Sean Li on 10/02/2022 10:10 AM [facility] Approved by: Sean Li on 10/02/2022 10:10 AM [facility] Station ID: [id number]
[2022-10-02] MEDS: SODIUM CHLORIDE FLUSH 0.9% 10 ML SYRINGE IVP SCH ×2 (11:14→16:55)
--- NOTE | 2022-10-02 11:15 | PROVIDER PROGRESS NOTE ---
Assessment/Plan - Problem List (1) Pancreatic necrosis Assessment/Plan: The CT report described a new finding of necrosis of the tail of his pancreas. Also seen is persistent pancreatitis although less severe than on the last CT image which is approximately a month ago Plan: We will admit the patient from Observation to Inpatient status We will continue to give symptomatic treatment by starting bowel rest, stopping his diet, stopping p.o. meds Continue with IV hydration Continue with meds for pain control, IV Offirnev and IV narcotics Follow WBC daily Regarding empiric antibx, per UpToDate, prophylactic antibx, or antifungals, are not recommended, unless infected necrosis should develop. Thus will watch for worsening WBC, fever, or gas within the necrosis on repeat imaging. NG tube would be placed if he shows signs of obstruction or if he gets cyclical N/V. We will request General Surgery consult to give recommendations and follow along with us. (2) Gastric perforation Assessment/Plan: CT report stated the findings are "possible sequela of contained gastric perforation". The description that his symptoms improved with a GI cocktail and that this a bdominal pain is somehow different from all his previous pancreatitis attacks, suggest he may have had gastric ulcer Plan: Stop all p.o. meds and start n.p.o. diet order Start bowel rest Will request General Surgery consult Begin Protonix IV twice daily Continue IV medicines for pain control using Offirmev and IV narcotics (3) Alcoholic pancreatitis Assessment/Plan: He has had previous bouts with alcoholic pancreatitis. This patient's MELD score is 9 Plan: Abstinence from alcohol will be stressed. 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 Since last EKG from 07/14/2020, today small P waves on EKG are new finding. Troponins have been cycled x2 and are WNL. Likely the chest pain radiating to the shoulder as a result of diaphragmatic irritation probably from his possible gastric perforation Plan: Continue pain meds as described above (5) Alcohol abuse Assessment/Plan: The patient drinks wine and also vodka mixed drinks. His last alcohol intake was about 2 days ago he states He has had recurrent pancreatitis episodes related to alcohol abuse. His liver transaminases are WNL His MELD score equals 9, which is not consistent with high mortality Plan: We will change his IV fluids from NS to a banana bag Will order CIWA protocol with as needed IV Ativan if necessary, if he has signs of alcohol withdrawal (6) Tobacco use Assessment/Plan: He smokes half pack a day Plan: We will order nicotine patch topically daily (7) Eczema Assessment/Plan: I reviewed the patient's entire [facility] record today. When he was here in 2019, he did have eczema and requested Eucerin This is probably the cause of itchiness that he was prescribed Benadryl for by Telemedicine last night, since he says he has had this itchiness before receivi ng narcotics here yesterday. Plan: Shower was ordered We will also add Eucerin cream to use as needed - Current Meds Current Meds: Current Medications Generic Name Dose Route Start Last Admin Trade Name Freq PRN Reason Stop Dose Admin Amlodipine Besylate 5 mg 10/02/22 09:00 10/02/22 08:28 Amlodipine 5 Mg Tablet PO 5 mg DAILY BENNIE Administration Diphenhydramine HCl 25 mg 10/02/22 04:55 10/02/22 07:07 Diphenhydramine Inj 50 Mg/Ml Vial IVP 25 mg Q6H PRN Administration Allergy Symptoms Escitalopram Oxalate 20 mg 10/02/22 09:00 10/02/22 08:26 Escitalopram 10 Mg Tablet PO 20 mg DAILY BENNIE Administration Gabapentin 300 mg 10/02/22 09:00 10/02/22 08:26 Gabapentin 300 Mg Capsule PO 300 mg BID BENNIE Administration Hydromorphone HCl 0.5 mg 10/01/22 21:14 10/02/22 09:06 Hydromorphone 0.5 Mg/0.5 Ml Syringe IVP 0.5 mg Q2H PRN Administration Pain 8 to 10 Sodium Chloride 1,000 mls @ 100 mls/hr 10/01/22 22:00 10/02/22 08:23 Normal Saline 0.9% IV 100 mls/hr .Q10H BENNIE Administration Potassium Chloride 10 meq in 100 mls @ 100 mls/hr 10/02/22 09:00 10/02/22 10:58 Potassium Chloride IV 10/02/22 12:59 100 mls/hr Q1H BENNIE Administration Multi-Ingredient Mouthwash/Gargle 30 ml 10/01/22 21:16 10/02/22 08:24 Gi Cocktail 120 Ml Bottle PO 30 ml Q4H PRN Administration Abdominal Pain Ondansetron HCl 4 mg 10/01/22 21:14 10/02/22 03:16 Ondansetron 4 Mg/2 Ml Vial IVP 4 mg Q6HR PRN Administration Nausea / Vomiting Oxycodone HCl 5 mg 10/01/22 21:14 10/02/22 08:46 Oxycodone 5 Mg Tablet PO 5 mg Q4HR PRN Administration Pain 5 to 7 Sodium Chloride 10 ml 10/02/22 01:00 10/01/22 22:38 Sodium Chloride Flush 0.9% 10 Ml Syringe IVP 10 ml 0100,0900,1700 BENNIE Administration - Lab Result Fish Bone Diagrams: 10/02/22 04:28 10/02/22 04:28 - EKG Results EKG Interpreted Independently: Yes EKG Comparison: Changed from prior EKG EKG Findings: Atrial rhythm, probably sinus rhythm, rate 76. Otherwise WNL. Since EKG from 07/14/2020, small P waves currently are a new finding. - Diagnostic Imaging Results Diagnostic Imaging Results: Final report reviewed - Additional Planning My Orders: My Active Orders 10/02/22 Consult [General Surgery Consult] [CONS] Routine 10/02/22 07:37 CIWA - AR Score Card [RC] Q4HR Social Work Consult [CONS] Routine 10/02/22 09:00 Potassium Chlor 10 Meq/100 ml [Potassium Chloride] 10 meq in 100 ml IV Q1H amLODIPine [Norvasc] 5 mg PO DAILY 10/02/22 10:13 Shower [RC] ONCE 10/02/22 10:14 EKG - Electrocardiogram [RC] .ONCE 10/02/22 10:20 DIET [NPO] [DIET] Additional Planning Notes: Attestation: The patient is expected to be discharged or transferred to another facility within 96 hours: Yes. Subjective - Subjective Patient Reports: Pain (Unchanged pain, needs IV narcotics, says "the only other thing that helped was getting a GI cocktail) Objective Vital Signs: Vital Signs - 24 hr 10/01/22 10/01/22 10/01/22 18:19 18:56 19:30 Temperature 36.9 C Heart Rate 106 H 94 89 Heart Rate [ Brachial] Respiratory 16 16 16 Rate Blood Pressure 148/106 H 159/103 H 147/96 H Blood Pressure [Right Brachial artery] O2 Saturation 100 99 94 10/01/22 10/01/22 10/01/22 21:00 21:53 22:23 Temperature 36.7 C Heart Rate 88 86 Heart Rate [ 94 Brachial] Respiratory 20 18 Rate Blood Pressure 153/106 H 141/99 H Blood Pressure 152/95 H [Right Brachial artery] O2 Saturation 96 95 97 10/01/22 10/02/22 10/02/22 23:31 04:01 07:48 Temperature 36.7 C 36.6 C 36.8 C Heart Rate Heart Rate [ 83 83 73 Brachial] Respiratory 21 20 20 Rate Blood Pressure Blood Pressure 116/85 H 123/89 H 128/80 [Right Brachial artery] O2 Saturation 96 94 94 Oxygen O2 Source Room air I&O (Last 24 Hrs): Intake and Output Totals x24h 09/30/22 10/01/22 10/02/22 23:59 23:59 23:59 Intake Total 7090.700 2005.333 Balance 2735.207 0171.333 General: Alert, Oriented x3, Moderate distress (from abd pain) HEENT: Mucous membr. moist/pink, Other (very tanned, but not icteric) Neck: Supple, No JVD Neuro: Alert, Non Focal Cardiovascular: Regular rate, No murmurs Respiratory: No respiratory distress, Breath sounds nml Abdomen: Normal bowel sounds, Other (Tender to palpation in the left upper quadrant and right upper quadrant and left lower quadrant, no guarding or rebound.) Extremities: No clubbing, No edema, No tenderness/swelling - Results Results: Laboratory Results WBC 12.9 x10^3/uL (4.8-10.8) H 10/02/22 04:28 RBC 4.26 10^6/uL (4.70-6.10) L 10/02/22 04:28 Hgb 13.9 g/dL (14.0-18.0) L 10/02/22 04:28 Hct 41.9 % (42.0-52.0) L 10/02/22 04:28 MCV 98.4 fL (80.0-94.0) H 10/02/22 04:28 MCH 32.6 pg (27.0-31.0) H 10/02/22 04:28 MCHC 33.2 g/dL (32.0-36.0) 10/02/22 04:28 RDW 14.0 % (12.0-15.0) 10/02/22 04:28 Plt Count 478 10^3/uL (130-450) H 10/02/22 04:28 MPV 8.9 fL (7.4-11.4) 10/02/22 04:28 Neut # (Auto) 7.9 10^3/uL (1.5-6.6) H 10/02/22 04:28 Lymph # (Auto) 3.2 10^3/uL (1.5-3.5) 10/02/22 04:28 [place] # (Auto) 1.0 10^3/uL (0.0-1.0) 10/02/22 04:28 Eos # (Auto) 0.6 10^3/uL (0.0-0.7) 10/02/22 04:28 Baso # (Auto) 0.1 10^3/uL (0.0-0.1) 10/02/22 04:28 Absolute Nucleated RBC 0.00 x10^3/uL 10/02/22 04:28 Nucleated RBC % 0.0 /100WBC 10/02/22 04:28 PT 14.4 secs (9.9-12.6) H 10/02/22 07:46 INR 1.3 (0.8-1.2) H 10/02/22 07:46 Sodium 139 mmol/L (135-145) 10/02/22 04:28 Potassium 3.1 mmol/L (3.5-5.0) L 10/02/22 04:28 Chloride 101 mmol/L (101-111) 10/02/22 04:28 Carbon Dioxide 27 mmol/L (21-32) 10/02/22 04:28 Anion Gap 11.0 (6-13) 10/02/22 04:28 BUN 5 mg/dL (6-20) L 10/02/22 04:28 Creatinine 0.6 mg/dL (0.6-1.2) 10/02/22 04:28 Estimated GFR (MDRD) 145 (>89) 10/02/22 04:28 Glucose 113 mg/dL (70-100) H 10/02/22 04:28 Lactic Acid 1.1 mmol/L (0.5-2.2) 10/02/22 10:37 Calcium 8.5 mg/dL (8.5-10.3) 10/02/22 04:28 Total Bilirubin 0.6 mg/dL (0.2-1.0) 10/02/22 04:28 AST 18 IU/L (10-42) 10/02/22 04:28 ALT 15 IU/L (10-60) 10/02/22 04:28 Alkaline Phosphatase 77 IU/L (42-121) 10/02/22 04:28 Troponin I High Sens 3.4 ng/L (2.3-19.7) 10/02/22 10:24 Total Protein 6.0 g/dL (6.7-8.2) L 10/02/22 04:28 Albumin 2.9 g/dL (3.2-5.5) L 10/02/22 04:28 Globulin 3.1 g/dL (2.1-4.2) 10/02/22 04:28 Albumin/Globulin Ratio 0.9 (1.0-2.2) L 10/02/22 04:28 Lipase 187 U/L (22-51) H 10/02/22 04:28 Ethyl Alcohol < 5.0 mg/dL 10/01/22 18:15 Sepsis Event Note (H) - Evaluation Current Stage of Sepsis: Ruled out ABX Reporting Has patient been on IV antibiotics over the past 48 hours?: No
[2022-10-02] MEDS: EMOLLIENT CREAM 57 GM TUBE TOP SCH ×2 (11:53→20:25)
[2022-10-02] MEDS ORDERED: PANTOPRAZOLE 40 MG VIAL IV STA (12:05)
--- NOTE | 2022-10-02 13:03 | CONSULTATION NOTE ---
Referring Provider Name of Referring Provider:: Dr. 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 Renteria. Patient is known to abuse alcohol although recently he has been drinking less due to recurrent bouts of pancreatitis. He was admitted again this time with similar complaints but he told the ED physician and the telehealth physician that this pain was worse and located more in the LUQ. Unfortunately, he was admitted before his studies were complete and CT scan showed likely pancreatic tail necrosis with findings of pancreatitis and p ossible gastritis. He admits to 7-9 drinks per evening to deal with his stress. He states that his also drinks alcohol excessively and states that it is secondary to "her culture." He states that he feels markedly better today than yesterday. He denies nausea, vomiting, hematochezia, hematemesis or melena. He also complains of back pain with his abdominal pain and some "numbness" on his LEFT side-arm that concerned him for cardiac disease. History - Past Medical History Cardiovascular: reports: None Respiratory: reports: None Neuro: reports: None Endocrine/Autoimmune: reports: None GI: reports: Pancreatitis, Other : reports: None HEENT: reports: None Psych: reports: Anxiety, Other Musculoskeletal: reports: Chronic back pain, Other Derm: reports: Other Other Past Medical History: Restless Legs, sciatica (steroid shot last month) - Family & Social History Family History Comment/Other: His father has an unknown known cardiac history. His mother has a history abdominal pain which is believed to be related to dairy products. Living Situation: With family Social History Notes: He lives at home with his and child. He drinks 4 alcoholic beverages a night. He has been drinking for nearly 30 years but has quit at times for a few months. He has not been eating for about 6 months since he last quit. He does smoke about a pack a day for nearly 30 years as well. He no longer smokes marijuana. He denies any illicit drug use. - POLST Patient has POLST: No POLST Status: Full Code Meds/Allgy - Home Medications Home Medications: Ambulatory Orders Medication Instructions Recorded Confirmed Escitalopram Oxalate 20 mg PO DAILY 10/17/21 10/02/22 Gabapentin [Neurontin] 300 mg PO BID 10/17/21 10/02/22 Propranolol HCl 20 mg PO BID PRN 10/17/21 10/02/22 Dicyclomine [Bentyl] 10 mg PO TID PRN 02/23/22 10/02/22 amLODIPine [Norvasc] 5 mg PO DAILY #30 tablet 02/26/22 10/02/22 Oxycodone HCl/Acetaminophen 1 - 2 each PO Q6H PRN #14 tablet 08/18/22 10/02/22 [Percocet 5-325 mg Tablet] Promethazine [Phenergan] 25 mg PO Q6H PRN #10 tab 09/03/22 10/02/22 Lisinopril [Zestril] 1 tab PO DAILY 10/02/22 10/02/22 Magnesium Oxide [Mag Ox] 1 tab PO DAILY 10/02/22 10/02/22 - Allergies Allergies/Adverse Reactions: Allergies Allergy/AdvReac Type Severity Reaction Status Date / Time No Known Drug Allergies Allergy Verified 10/01/22 18:24 Review of Systems - Constitutional Constitutional: reports: Other (Patient states that he is very stressed.) - Eyes Eyes: denies: Pain - Ears, Nose & Throat Ears, Nose & Throat: denies: Ear pain - Cardiovascular Cariovascular: denies: Palpitations, Chest pain - Respiratory Respiratory: denies: Cough - Gastrointestinal Gastrointestinal: reports: Abdominal pain. denies: Black stools, Bloody stools, Nausea, Vomiting, Ramesh blood emesis - Musculoskeletal Musculoskeletal: reports: Back pain, Muscle aches, Stiffness - Neurological Neurological: denies: General weakness - Psychiatric Psychiatric: reports: Other (Merkedly stressed.) - Hematologic/Lymphatic Hematologic/Lymphatic: denies: Anemia Exam - Vital Signs Reviewed Vital Signs: Yes Vital Signs: Vital Signs x48h Temp Pulse Resp BP Pulse Ox 10/02/22 07:48 36.8 C 73 20 128/80 94 - Physical Exam General Appearance: positive: No acute distress Eyes Bilateral: positive: No lid inflammation, Conjunctivae nml, No scleral icterus ENT: positive: No signs of dehydration Neck: positive: Trachea midline Respiratory: positive: Other (Fine crackles at bases clearer to the top bilaterally.) Cardiovascular: positive: Regular rate & rhythm Abdomen: positive: Tenderness (Throughout but worse in the LUQ.), Abnml bowel sounds (Decreased.) Skin: positive: Color nml (Tattoed.) Extremities: positive: Nml appearance. negative: Calf tenderness Neurologic/Psychiatric: positive: Oriented x3, Motor nml, Sensation nml, Mood/affect nml (Stressed with our conversation.) Conclusion/Plan - Lab Results Lab results reviewed: Yes Fish Bones: 10/02/22 04:28 10/02/22 04:28 - Diagnostic Imaging Results Diagnostic Imaging Results: positive: Final report reviewed - Other Other Results/Comments: The patient is a known alcoholic who is now manifesting significant sequela of his alcoholism. I explained the difference between infected pancreatitis and necrotic pancreatitis. I explained that currently the only treatment is supportive. If he continues to drink and his pancreas becomes infectected it will (not may) threaten his life. I explained that surgery for pancreatitis is not easy, very safe or very effective - instead avoiding pancreatitis is much easier, much safer and more effective. The patient vocalized an understanding. I suggested that he find a safer way to deal with his stress. Medically I would continue BID PPI, IVF and pain relief. When his pain is improved start with fat-free diet and advance to general if tolerated. I offered help with alcohol cessation strategies and I am sure that DR. Renteria will echo this. There currently is no indication for surgical intervention in this patient but I ask the patient and Dr. Renteria to call me with any questions or concerns or any change in his signs or symptoms. I thank you very much for the opportunitly to participate in this patient's care. CPT 83658
[2022-10-02] MEDS ORDERED: CALAMINE/ZINC OXIDE 177 ML BOTTLE TOP PRN (15:35)
[2022-10-02] MEDS: D5NS W/20 MEQ KCL 1,000 ML IV SCH (18:19)
[2022-10-02] MEDS: PANTOPRAZOLE 40 MG VIAL IV SCH (21:12)
[2022-10-02] MEDS: METOPROLOL 5 MG/5 ML VIAL IVP SCH (21:12)
[2022-10-03] MEDS: SODIUM CHLORIDE FLUSH 0.9% 10 ML SYRINGE IVP SCH ×4 (00:03→23:46)
[2022-10-03] MEDS: HYDROmorphone 0.5 MG/0.5 ML SYRINGE IVP PRN ×8 (00:04→23:46)
[2022-10-03] MEDS: D5NS W/20 MEQ KCL 1,000 ML IV SCH (04:37)
[2022-10-03] MEDS: diphenhydrAMINE INJ 50 MG/ML VIAL IVP PRN ×2 (04:38→21:21)
[2022-10-03 05:08] LABS: BASOPHILS # (AUTO) 0.1 10^3/uL (0.0-0.1); BASOPHILS % (AUTO) 0.9 %; EOSINOPHILS % (AUTO) 8.9 %; HCT - HEMATOCRIT 42.8 % (42.0-52.0); HGB - HEMOGLOBIN 13.2 g/dL (14.0-18.0); LYMPHOCYTES # (AUTO) 3.4 10^3/uL (1.5-3.5); LYMPHOCYTES % (AUTO) 30.9 %; MEAN CORPUSCULAR HEMOGLOBIN 32.4 pg (27.0-31.0); MEAN CORPUSCULAR HGB CONC 30.8 g/dL (32.0-36.0); MEAN CORPUSCULAR VOLUME 105.2 fL (80.0-94.0); MEAN PLATELET VOLUME 8.9 fL (7.4-11.4); MONOCYTES # (AUTO) 0.8 10^3/uL (0.0-1.0); MONOCYTES % (AUTO) 7.4 %; NEUTROPHILS # (AUTO) 5.7 10^3/uL (1.5-6.6); NEUTROPHILS % (AUTO) 51.4 %; PLT - PLATELET COUNT 426 10^3/uL (130-450); RED BLOOD COUNT 4.07 10^6/uL (4.70-6.10); WHITE BLOOD COUNT 11.1 x10^3/uL (4.8-10.8)
[2022-10-03 05:32] LABS: ALBUMIN 2.9 g/dL (3.2-5.5); ALKALINE PHOSPHATASE 72 IU/L (42-121); ALT ALANINE AMINOTRANSFERASE 19 IU/L (10-60); AST ASPARTATE AMINOTRANSFERASE 34 IU/L (10-42); BILIRUBIN,TOTAL 0.5 mg/dL (0.2-1.0); BUN - BLOOD UREA NITROGEN < 5 mg/dL (6-20); CALCIUM 8.6 mg/dL (8.5-10.3); CARBON DIOXIDE - CO2 30 mmol/L (21-32); CHLORIDE 103 mmol/L (101-111); CREATININE 0.6 mg/dL (0.6-1.2); GFR - MDRD 145 (>89); GLUCOSE 96 mg/dL (70-100); POTASSIUM 3.2 mmol/L (3.5-5.0); SODIUM 142 mmol/L (135-145); TOTAL PROTEIN 5.9 g/dL (6.7-8.2)
[2022-10-03] MEDS ORDERED: ACETAMINOPHEN 1,000 MG/100 ML 1,000 MG/100 ML BAG IV PRN (08:20)
[2022-10-03] MEDS: METOPROLOL 5 MG/5 ML VIAL IVP SCH ×2 (08:42→21:15)
[2022-10-03] MEDS: PANTOPRAZOLE 40 MG VIAL IV SCH ×2 (08:43→21:15)
[2022-10-03] MEDS: EMOLLIENT CREAM 57 GM TUBE TOP SCH ×2 (08:48→21:16)
[2022-10-03] MEDS: POTASSIUM CHLOR 10 MEQ/100 ML 10 MEQ/100 ML BAG IV SCH ×4 (08:55→15:04)
[2022-10-03] MEDS ORDERED: MULTIVITAMIN 10 ML, THIAMINE INJ 100 MG, MAGNESIUM SULFATE 2 GM, FOLIC ACID INJ 1 MG in... IV SCH ×5 (09:00)
--- NOTE | 2022-10-03 17:53 | PROVIDER PROGRESS NOTE ---
Assessment/Plan - Problem List (1) Pancreatic necrosis Assessment/Plan: The CT report described a new finding of necrosis of the tail of his pancreas. Also seen is persistent pancreatitis although less severe than on the last CT image which is approximately a month ago. Appreciate General Surgery consult that recommended to monitor Plan: We will continue to give symptomatic treatment by starting bowel rest, NPO and no po meds Continue with IV hydration Continue with meds for pain control, IV Offirmev and IV narcotics Follow WBC daily (2) Gastric perforation Assessment/Plan: CT report stated the findings are "possible sequela of contained gastric perforation". The description that his symptoms improved with a GI cocktail and that this abdominal pain is somehow different from all his previous pancreatitis attacks, suggest he may have had gastric ulcer. Appreciate General Surgery consult that recommended to monitor Plan: Cont bowel rest with NPO Cont Protonix IV twice daily Continue IV medicines for pain control using Offirmev and IV narcotics (3) Gastritis As per report on CT and his sx are consistent. Plan: Management as in #2 (4) Alcoholic pancreatitis Assessment/Plan: He has had previous bouts with alcoholic pancreatitis. This patient's MELD score is 9 Plan: Abstinence from alcohol will be stressed. SW re alcohol abuse management (5) Alcohol abuse Assessment/Plan: The patient drinks wine and also vodka mixed drinks. His last alcohol intake was about 2 days ago he states He has had recurrent pancreatitis episodes related to alcohol abuse. His liver transaminases are WNL His MELD score equals 9, which is not consistent with high mortality Plan: Cont IV fluids banana bag Cont CIWA protocol with as needed IV Ativan if necessary, if he has signs of alcohol withdrawal Abstinence from alcohol was stressed. SW re alcohol abuse management if needed (6) HTN As per Hx Plan: While strict NPO, will use iv Metoprolol and prn Hydralazine. (7) Tobacco use Assessment/Plan: He smokes half pack a day Plan: We will order nicotine patch topically daily (8) Eczema Assessment/Plan: I reviewed the patient's entire [facility] record today. When he was here in 2019, he did have eczema and requested Eucerin This is probably the cause of itchiness that he was prescribed Benadryl for by Telemedicine last night, since he says he has had this itchiness before receiving narcotics here yesterday. Plan: Cont Eucerin cream to use as needed (9) Chest pain Assessment/Plan: Resolved He had left lower chest pain with radiation to the left shoulder and down the left arm and through to the left scapula. EKG was done that showed no ischemic changes. Troponins were WNL. Likely the chest pain radiating to the shoulder as a result of diaphragmatic irritation probably from his possible gastric perforation Plan: Continue pain meds as described above - Current Meds Current Meds: Current Medications Generic Name Dose Route Start Last Admin Trade Name Luisq PRN Reason Stop Dose Admin Calamine 1 applic 10/02/22 15:35 10/02/22 15:56 Calamine/Zinc Oxide 177 Ml Bottle TOP 1 applic PRN PRN Administration SKIN CARE Diphenhydramine HCl 25 mg 10/02/22 04:55 10/03/22 04:38 Diphenhydramine Inj 50 Mg/Ml Vial IVP 25 mg Q6H PRN Administration Allergy Symptoms Hydromorphone HCl 1 mg 10/02/22 12:00 10/03/22 16:59 Hydromorphone 0.5 Mg/0.5 Ml Syringe IVP 1 mg Q2H PRN Administration Pain 8 to 10 Multivitamins 10 ml/ Thiamine 1,015.2 mls @ 100 mls/hr 10/03/22 09:00 10/03/22 08:47 HCl 100 mg/ Magnesium Sulfate IV 10/03/22 19:10 100 mls/hr 2 gm/ Folic Acid 1 mg/ Sodium DAILY BENNIE Administration Chloride Metoprolol Tartrate 2.5 mg 10/02/22 21:00 10/03/22 08:42 Metoprolol 5 Mg/5 Ml Vial IVP 2.5 mg Q12H BENNIE Administration Multi-Ingredient Ointment 1 applic 10/02/22 12:00 10/03/22 08:48 Emollient Cream 57 Gm Tube TOP 1 applic BID BENNIE Administration Ondansetron HCl 4 mg 10/01/22 21:14 10/02/22 03:16 Ondansetron 4 Mg/2 Ml Vial IVP 4 mg Q6HR PRN Administration Nausea / Vomiting Pantoprazole Sodium 40 mg 10/02/22 21:00 10/03/22 08:43 Pantoprazole 40 Mg Vial IV 40 mg BID BENNIE Administration Sodium Chloride 10 ml 10/01/22 21:14 10/03/22 04:39 Sodium Chloride Flush 0.9% 10 Ml Syringe IVP 10 ml PRN PRN Administration NEEDED PER PROVIDER ORDERS Sodium Chloride 10 ml 10/02/22 01:00 10/03/22 17:44 Sodium Chloride Flush 0.9% 10 Ml Syringe IVP Not Given 0100,0900,1700 BENNIE - Lab Result Fish Bone Diagrams: 10/05/22 05:10 10/05/22 05:10 - Additional Planning My Orders: My Active Orders 10/02/22 16:00 Miscellaenous Nursing Order [RC] QSHIFT 10/02/22 21:00 Metoprolol Inj [Lopressor Inj] 2.5 mg IVP Q12H Pantoprazole [Protonix] 40 mg IV BID 10/03/22 08:20 Acetaminophen 1,000 mg/100 ml [Acetaminophen] 1,000 mg in 100 ml IV Q6HR 10/03/22 09:00 Multivitamin [Infuvite] 10 ml Thiamine Inj [Vitamin B-1 Inj] 100 mg Magnesium Sulfate 2 gm Folic Acid Inj [Folic Acid] 1 mg Sodium Chloride 0.9% [Normal Saline 0.9%] 1,000 ml IV DAILY 10/04/22 05:00 BMP - BASIC METABOLIC PANEL [CHEM] DAILYLAB CBC - COMP BLD CT W/AUTO DIFF [HEME] DAILYLAB 10/05/22 05:00 BMP - BASIC METABOLIC PANEL [CHEM] DAILYLAB CBC - COMP BLD CT W/AUTO DIFF [HEME] DAILYLAB 10/06/22 05:00 BMP - BASIC METABOLIC PANEL [CHEM] DAILYLAB CBC - COMP BLD CT W/AUTO DIFF [HEME] DAILYLAB 10/07/22 05:00 BMP - BASIC METABOLIC PANEL [CHEM] DAILYLAB Subjective - Subjective Patient Reports: Feeling Better, No Complaints (No pain when taking ice chips) Objective Vital Signs: Vital Signs - 24 hr 10/02/22 10/02/22 10/02/22 21:00 21:12 23:47 Temperature 36.6 C 36.3 C L Heart Rate [ 79 73 Brachial] Respiratory 18 18 Rate Blood Pressure 133/85 H Blood Pressure 132/85 H 128/80 [Right Brachial artery] O2 Saturation 97 96 10/03/22 10/03/22 10/03/22 04:51 08:28 08:42 Temperature 36.4 C L 36.5 C Heart Rate [ 78 87 Brachial] Respiratory 18 18 Rate Blood Pressure 127/81 H Blood Pressure 151/85 H 127/81 H [Right Brachial artery] O2 Saturation 94 92 10/03/22 10/03/22 13:00 15:46 Temperature 37.1 C 36.9 C Heart Rate [ 74 78 Brachial] Respiratory 18 18 Rate Blood Pressure Blood Pressure 127/81 H 134/94 H [Right Brachial artery] O2 Saturation 94 96 Oxygen O2 Source Room air I&O (Last 24 Hrs): Intake and Output Totals x24h 10/01/22 10/02/22 10/04/22 23:59 23:59 00:59 Intake Total 4534.551 6827.333 2028.167 Balance 6294.935 7122.333 2028.167 General: Alert, Oriented x3 HEENT: Atraumatic Neck: Supple Neuro: Alert, Non Focal Cardiovascular: Regular rate Respiratory: No respiratory distress Abdomen: Normal bowel sounds, Other (Mild tenderness in epigastrium) Extremities: No clubbing, No edema, No tenderness/swelling - Results Results: Laboratory Results WBC 11.1 x10^3/uL (4.8-10.8) H 10/03/22 04:46 RBC 4.07 10^6/uL (4.70-6.10) L 10/03/22 04:46 Hgb 13.2 g/dL (14.0-18.0) L 10/03/22 04:46 Hct 42.8 % (42.0-52.0) 10/03/22 04:46 MCV 105.2 fL (80.0-94.0) H 10/03/22 04:46 MCH 32.4 pg (27.0-31.0) H 10/03/22 04:46 MCHC 30.8 g/dL (32.0-36.0) L 10/03/22 04:46 RDW 14.0 % (12.0-15.0) 10/03/22 04:46 Plt Count 426 10^3/uL (130-450) 10/03/22 04:46 MPV 8.9 fL (7.4-11.4) 10/03/22 04:46 Neut # (Auto) 5.7 10^3/uL (1.5-6.6) 10/03/22 04:46 Lymph # (Auto) 3.4 10^3/uL (1.5-3.5) 10/03/22 04:46 [place] # (Auto) 0.8 10^3/uL (0.0-1.0) 10/03/22 04:46 Eos # (Auto) 1.0 10^3/uL (0.0-0.7) H 10/03/22 04:46 Baso # (Auto) 0.1 10^3/uL (0.0-0.1) 10/03/22 04:46 Absolute Nucleated RBC 0.00 x10^3/uL 10/03/22 04:46 Nucleated RBC % 0.0 /100WBC 10/03/22 04:46 PT 14.4 secs (9.9-12.6) H 10/02/22 07:46 INR 1.3 (0.8-1.2) H 10/02/22 07:46 Sodium 142 mmol/L (135-145) 10/03/22 04:46 Potassium 3.2 mmol/L (3.5-5.0) L 10/03/22 04:46 Chloride 103 mmol/L (101-111) 10/03/22 04:46 Carbon Dioxide 30 mmol/L (21-32) 10/03/22 04:46 Anion Gap 9.0 (6-13) 10/03/22 04:46 BUN < 5 mg/dL (6-20) L 10/03/22 04:46 Creatinine 0.6 mg/dL (0.6-1.2) 10/03/22 04:46 Estimated GFR (MDRD) 145 (>89) 10/03/22 04:46 Glucose 96 mg/dL (70-100) 10/03/22 04:46 Lactic Acid 1.1 mmol/L (0.5-2.2) 10/02/22 10:37 Calcium 8.6 mg/dL (8.5-10.3) 10/03/22 04:46 Total Bilirubin 0.5 mg/dL (0.2-1.0) 10/03/22 04:46 AST 34 IU/L (10-42) 10/03/22 04:46 ALT 19 IU/L (10-60) 10/03/22 04:46 Alkaline Phosphatase 72 IU/L (42-121) 10/03/22 04:46 Troponin I High Sens 3.4 ng/L (2.3-19.7) 10/02/22 10:24 Total Protein 5.9 g/dL (6.7-8.2) L 10/03/22 04:46 Albumin 2.9 g/dL (3.2-5.5) L 10/03/22 04:46 Globulin 3.0 g/dL (2.1-4.2) 10/03/22 04:46 Albumin/Globulin Ratio 1.0 (1.0-2.2) 10/03/22 04:46 Lipase 59 U/L (22-51) H 10/03/22 04:46 Ethyl Alcohol < 5.0 mg/dL 10/01/22 18:15 Sepsis Event Note (H) - Evaluation Current Stage of Sepsis: Ruled out
[2022-10-04] MEDS: HYDROmorphone 0.5 MG/0.5 ML SYRINGE IVP PRN ×2 (02:11→05:06)
[2022-10-04] MEDS: SODIUM CHLORIDE FLUSH 0.9% 10 ML SYRINGE IVP SCH ×2 (02:11→05:07)
[2022-10-04 05:16] LABS: BASOPHILS # (AUTO) 0.1 10^3/uL (0.0-0.1); BASOPHILS % (AUTO) 1.1 %; EOSINOPHILS # (AUTO) 0.8 10^3/uL (0.0-0.7); EOSINOPHILS % (AUTO) 7.6 %; HCT - HEMATOCRIT 44.6 % (42.0-52.0); HGB - HEMOGLOBIN 14.2 g/dL (14.0-18.0); LYMPHOCYTES # (AUTO) 2.8 10^3/uL (1.5-3.5); LYMPHOCYTES % (AUTO) 27.4 %; MEAN CORPUSCULAR HEMOGLOBIN 32.5 pg (27.0-31.0); MEAN CORPUSCULAR HGB CONC 31.8 g/dL (32.0-36.0); MEAN CORPUSCULAR VOLUME 102.1 fL (80.0-94.0); MONOCYTES # (AUTO) 0.8 10^3/uL (0.0-1.0); MONOCYTES % (AUTO) 7.9 %; NEUTROPHILS # (AUTO) 5.7 10^3/uL (1.5-6.6); NEUTROPHILS % (AUTO) 55.6 %; PLT - PLATELET COUNT 441 10^3/uL (130-450); RED BLOOD COUNT 4.37 10^6/uL (4.70-6.10); RED CELL DISTRIBUTION WIDTH 14.2 % (12.0-15.0); WHITE BLOOD COUNT 10.3 x10^3/uL (4.8-10.8)
[2022-10-04 05:32] LABS: BUN - BLOOD UREA NITROGEN < 5 mg/dL (6-20); CALCIUM 8.9 mg/dL (8.5-10.3); CARBON DIOXIDE - CO2 29 mmol/L (21-32); CHLORIDE 105 mmol/L (101-111); CREATININE 0.7 mg/dL (0.6-1.2); GFR - MDRD 121 (>89); GLUCOSE 103 mg/dL (70-100); POTASSIUM 3.5 mmol/L (3.5-5.0); SODIUM 145 mmol/L (135-145)
[2022-10-04] MEDS ORDERED: iohexoL-300 100 ML VIAL ONE (07:43)
--- NOTE | 2022-10-04 08:29 | CT Report ---
PROCEDURE: ABDOMEN/PELVIS W INDICATIONS: F/U necrotic pancr suspected gastric perforation CONTRAST: 100 ML OMNI 300 TECHNIQUE: After the administration of intravenous contrast, 5 mm thick sections acquired from the diaphragms to the symphysis. 5 mm thick coronal and sagittal reformats were acquired. For radiation dose reducti on, the following was used: automated exposure control, adjustment of mA and/or kV according to [place] ent size. COMPARISON: CT 10/01/2022 FINDINGS: Image quality: Excellent. ABDOMEN: Lung bases: Trace effusions and bibasilar atelectasis. Solid organs: Fluid attenuating liver cyst. There is a fluid collection along the undersurface of the left hepatic lobe measuring approximately 4.3 x 1.8 cm. Adjacent to this collection, the liver demon strates hyperattenuation. The pancreas demonstrates homogeneous enhancement, with ductal irregularity and peripancreatic fat stranding. No measurable fluid collections surrounding the pancreas are withi n the pancreatic parenchyma. Peritoneum and bowel: Colonic diverticulosis without evidence of diverticulitis. Nodes and vessels: No retroperitoneal or mesenteric adenopathy by size criteria. Aorta and inferior vena cava are normal in size. Miscellaneous: Tiny umbilical hernia containing fat. PELVIS: Genitourinary: Bladder wall thickness is normal. Miscellaneous: No inguinal hernias or adenopathy. Bones: No suspicious bony lesions. No vertebral body compression fractures. IMPRESSION: 1.Similar fluid collection along the undersurface of the liver, with associated liver hyperemic marquis es. This measures 4.3 x 1.8 cm, and does not contain gas. Findings could represent an acute peripancr eatic collection, less likely contained gastric perforation as mentioned on prior CT. 2.Similar pancreatic inflammatory changes, presumably acute pancreatitis. Pancreatic ductal irregular ity probably represents a chronic etiology. 3.Trace pleural effusions and bibasilar atelectasis. Reviewed by: Ponce Cleaning on 10/04/2022 8:27 AM PDT Approved by: Ponce Cleaning on 10/04/2022 8:27 AM PDT Station ID: [id number]
[2022-10-04] MEDS: PANTOPRAZOLE 40 MG VIAL IV SCH (09:36)
[2022-10-04] MEDS: METOPROLOL 5 MG/5 ML VIAL IVP SCH (09:36)
[2022-10-04] MEDS: HYDROmorphone 1 MG/ML CARPUJECT IVP PRN ×3 (09:37→19:34)
[2022-10-04] MEDS: EMOLLIENT CREAM 57 GM TUBE TOP SCH ×2 (10:10→20:37)
[2022-10-04] MEDS ORDERED: PANTOPRAZOLE 40 MG VIAL IVP SCH (11:19)
[2022-10-04] MEDS: MULTIVITAMIN 10 ML, THIAMINE INJ 100 MG, MAGNESIUM SULFATE 2 GM, FOLIC ACID INJ 1 MG in... IV SCH ×5 (11:58)
[2022-10-04] MEDS ORDERED: iohexoL-300 100 ML VIAL IVP ONE (14:44)
--- NOTE | 2022-10-04 14:49 | PROVIDER PROGRESS NOTE ---
Subjective - General Admit Date: 10/02/22 - Other Other Information/Narrative: Patient states he is feeling much better than at the time of admission. He denies any nausea or vomiting after having clears for lunch. He would very much like to eat. He has some mild back pain, but it did not worsen with PO intake. He denies fevers or chills. +flatus. No diarrhea or constipation. Objective - Patient Data Reviewed Vital Signs: Yes Vital Signs: Vital Signs x48h Temp Pulse Resp BP BP Pulse Ox 10/04/22 12:18 36.7 C 73 18 135/94 H 98 10/04/22 09:36 146/98 H 10/04/22 08:14 36.6 C 74 18 146/94 H 95 Intake & Output: Intake and Output Totals x24h 10/02/22 10/03/22 10/04/22 22:59 23:59 23:59 Intake Total 360 Output Total Balance 360 - Lab Results Lab Results: 10/04/22 04:48 10/04/22 04:48 Other Lab Results: Lab Results x24hrs 10/04/22 10/04/22 10/04/22 Range/Units 04:48 04:48 04:48 WBC 10.3 (4.8-10.8) x10^3/uL RBC 4.37 L (4.70-6.10) 10^6/uL Hgb 14.2 (14.0-18.0) g/dL Hct 44.6 (42.0-52.0) % MCV 102.1 H (80.0-94.0) fL MCH 32.5 H (27.0-31.0) pg MCHC 31.8 L (32.0-36.0) g/dL RDW 14.2 (12.0-15.0) % Plt Count 441 (130-450) 10^3/uL MPV 9.0 (7.4-11.4) fL Neut # (Auto) 5.7 (1.5-6.6) 10^3/uL Lymph # (Auto) 2.8 (1.5-3.5) 10^3/uL [place] # (Auto) 0.8 (0.0-1.0) 10^3/uL Eos # (Auto) 0.8 H (0.0-0.7) 10^3/uL Baso # (Auto) 0.1 (0.0-0.1) 10^3/uL Absolute Nucleated RBC 0.00 x10^3/uL Nucleated RBC % 0.0 /100WBC Sodium 145 (135-145) mmol/L Potassium 3.5 (3.5-5.0) mmol/L Chloride 105 (101-111) mmol/L Carbon Dioxide 29 (21-32) mmol/L Anion Gap 11.0 (6-13) BUN < 5 L (6-20) mg/dL Creatinine 0.7 (0.6-1.2) mg/dL Estimated GFR (MDRD) 121 (>89) Glucose 103 H (70-100) mg/dL Calcium 8.9 (8.5-10.3) mg/dL Lipase 39 (22-51) U/L - Imaging Results Radiology Imaging: positive: Final report received Imaging Results Comments: I personally reviewed the images and report from both CT's from this patient's h ospital stay. He has a nearly unchanged fluid collection adjacent to his pancreas and signs of pancreatic necrosis about the tail of the pancreas. No free air. - Current Medications Current Medications: Current Medications Generic Name Dose Route Start Last Admin Trade Name Freq PRN Reason Stop Dose Admin Calamine 1 applic 10/02/22 15:35 10/02/22 15:56 Calamine/Zinc Oxide 177 Ml Bottle TOP 1 applic PRN PRN Administration SKIN CARE Diphenhydramine HCl 25 mg 10/02/22 04:55 10/03/22 21:21 Diphenhydramine Inj 50 Mg/Ml Vial IVP 25 mg Q6H PRN Administration Allergy Symptoms Hydromorphone HCl 1 mg 10/04/22 09:19 10/04/22 09:37 Hydromorphone 1 Mg/Ml Carpuject IVP 1 mg Q2H PRN Administration Pain 8 to 10 Multivitamins 10 ml/ Thiamine 1,015.2 mls @ 100 mls/hr 10/04/22 11:00 10/04/22 11:58 HCl 100 mg/ Magnesium Sulfate IV 10/13/22 19:10 100 mls/hr 2 gm/ Folic Acid 1 mg/ Sodium DAILY BENNIE Administration Chloride Iohexol 100 ml 10/04/22 14:44 10/04/22 14:45 Iohexol-300 100 Ml Vial IVP 10/04/22 14:45 100 ml ONCE ONE Administration Metoprolol Tartrate 2.5 mg 10/02/22 21:00 10/04/22 09:36 Metoprolol 5 Mg/5 Ml Vial IVP 2.5 mg Q12H BENNIE Administration Multi-Ingredient Ointment 1 applic 10/02/22 12:00 10/04/22 10:10 Emollient Cream 57 Gm Tube TOP Not Given BID [facility] Ondansetron HCl 4 mg 10/01/22 21:14 10/02/22 03:16 Ondansetron 4 Mg/2 Ml Vial IVP 4 mg Q6HR PRN Administration Nausea / Vomiting Sodium Chloride 10 ml 10/01/22 21:14 10/03/22 04:39 Sodium Chloride Flush 0.9% 10 Ml Syringe IVP 10 ml PRN PRN Administration NEEDED PER PROVIDER ORDERS Sodium Chloride 10 ml 10/02/22 01:00 10/04/22 05:07 Sodium Chloride Flush 0.9% 10 Ml Syringe IVP 10 ml 0100,0900,1700 BENNIE Administration - Physical Exam General Appearance: positive: No acute distress, Alert Eyes Bilateral: positive: PERRL, EOMI ENT: positive: No signs of dehydration Neck: positive: Nml inspection, Trachea midline Respiratory: positive: No respiratory distress Cardiovascular: positive: Regular rate & rhythm Abdomen: positive: Non-tender, No distention. negative: Guarding, Rebound Skin: positive: No rash Extremities: positive: Non-tender, Full ROM Neurologic/Psychiatric: positive: Oriented x3 Impression/Plan - Problem List Problem List: This is a 46 y/o M with: pancreatitis, with pancreatic necrosis and peripancreatic fluid collection - The fluid collection is not significantly changed. This fluid will cause inflammation of surrounding tissues as seen on the stomach and liver on recent CT's. No free air or air within the fluid collection. - There is no indication for surgical intervention at this time. - patient's lipase and wbc have normalized - I do not recommend antibiotics. I recommend continuing PPI, prn pain medica tion. - Patient's pain is significantly improved. Recommend slowly advancing diet to low fat, then regular. - Ok to discharge from surgery standpoint when tolerating diet. - I again discussed the necessity of abstinence from alcohol with the patient. He agrees and states he feels "scared straight" and will not drink any more. He feels he has many things to motivate him to make this positive change (love of cooking and relationship with his son) and he has the resources in place to help him find other coping mechanisms when life is stressful. - We also discussed the follow up plan and possibility that he may benefit from drainage of this fluid collection in the future (at least 6-8 weeks from now and only if symptomatic). Finally, we discussed he may have problems with his pancreas again in the future even if he avoids alcohol, though without alcohol, his chances of doing well are MUCH improved. Surgery will follow peripherally; please call with any questions or concerns or any change in the patient's signs or symptoms.
[2022-10-04] MEDS: PANTOPRAZOLE 40 MG TABLET PO SCH (20:36)
--- NOTE | 2022-10-04 22:02 | PROVIDER PROGRESS NOTE ---
Assessment/Plan - Problem List (1) Alcoholic pancreatitis Assessment/Plan: He has had previous bouts with alcoholic pancreatitis. This patient's MELD score is 9 Plan: Abstinence from alcohol will be stressed by me and by Gen Surg consuilt, Dr Chelsea POWELL re alcohol abuse management (2) Pancreatic pseudocyst The first CT report described a new finding of necrosis of the tail of his pancreas. Also seen was persistent pancreatitis although less severe than on the last CT image which is approximately a month ago. Repeat CT scan was ordered today because his pain is much better. This showed a different description and general surgery input states this is an early pancreatic pseudocyst, not necrosis Plan: Start clear liquids today. If no pain we will advance to a low-fat more solid diet. Appreciate General Surgery consult and recommendations (3) Gastritis Assessment/Plan: The first CT report stated the findings are "possible sequela of contained gastric perforation". The description that his symptoms improved with a GI cocktail and that this abdominal pain is somehow different from all his previous pancreatitis attacks, suggest he may have had gastric ulcer The CT done today does not agree with a perforation but he does have changes of gastritis Plan: We will begin a diet today, advance as tolerated We will change Protonix IV twice daily to po BID (4) Alcohol abuse Assessment/Plan: The patient drinks wine and also vodka mixed drinks. His last alcohol intake was about 2 days before admission He has had recurrent pancreatitis episodes related to alcohol abuse. His liver transaminases are WNL His MELD score equals 9, which is not consistent with high mortality Plan: \\He has arianna getting banana bag, haylee stop this when hydrating po. We will then changed to p.o. thiamine and p.o. vitamins Cont CIWA protocol with prn IV Ativan if necessary but he has had no signs of alcohol withdrawal afgter the first evening (5) HTN As per history. Plan: Continue with his BP meds. (6) Tobacco use Assessment/Plan: He smokes half pack a day Plan: cont nicotine patch topically daily (7) Eczema Assessment/Plan: As per Hx Plan: Cont Eucerin cream to use as needed (8) Chest pain Assessment/Plan: Resolved At admission he had left lower chest pain with radiation to the left shoulder and down the left arm and through to the left scapula EKG was done and showed no ischemic changes. Troponins were cycled x2 and are WNL. Likely the chest pain radiating to the shoulder as a result of diaphragmatic irritation probably from his gastric pathology - Current Meds Current Meds: Current Medications Generic Name Dose Route Start Last Admin Trade Name Sarika PRN Reason Stop Dose Admin Calamine 1 applic 10/02/22 15:35 10/02/22 15:56 Calamine/Zinc Oxide 177 Ml Bottle TOP 1 applic PRN PRN Administration SKIN CARE Diphenhydramine HCl 25 mg 10/02/22 04:55 10/03/22 21:21 Diphenhydramine Inj 50 Mg/Ml Vial IVP 25 mg Q6H PRN Administration Allergy Symptoms Hydromorphone HCl 1 mg 10/04/22 09:19 10/04/22 19:34 Hydromorphone 1 Mg/Ml Carpuject IVP 1 mg Q2H PRN Administration Pain 8 to 10 Multivitamins 10 ml/ Thiamine 1,015.2 mls @ 100 mls/hr 10/04/22 11:00 10/04/22 11:58 HCl 100 mg/ Magnesium Sulfate IV 10/05/22 19:10 100 mls/hr 2 gm/ Folic Acid 1 mg/ Sodium DAILY BENNIE Administration Chloride Multi-Ingredient Ointment 1 applic 10/02/22 12:00 10/04/22 20:37 Emollient Cream 57 Gm Tube TOP Not Given BID BENNIE Ondansetron HCl 4 mg 10/01/22 21:14 10/02/22 03:16 Ondansetron 4 Mg/2 Ml Vial IVP 4 mg Q6HR PRN Administration Nausea / Vomiting Pantoprazole Sodium 40 mg 10/04/22 21:00 10/04/22 20:36 Pantoprazole 40 Mg Tablet PO 40 mg BID BENNIE Administration Sodium Chloride 10 ml 10/01/22 21:14 10/03/22 04:39 Sodium Chloride Flush 0.9% 10 Ml Syringe IVP 10 ml PRN PRN Administration NEEDED PER PROVIDER ORDERS Sodium Chloride 10 ml 10/02/22 01:00 10/04/22 05:07 Sodium Chloride Flush 0.9% 10 Ml Syringe IVP 10 ml 0100,0900,1700 BENNIE Administration - Lab Result Fish Bone Diagrams: 10/05/22 05:10 10/05/22 05:10 - Additional Planning My Orders: My Active Orders 10/04/22 09:19 HYDROmorphone 1MG CARP [Dilaudid 1Mg Carp] 1 mg IVP Q2H PRN 10/04/22 11:00 Multivitamin [Infuvite] 10 ml Thiamine Inj [Vitamin B-1 Inj] 100 mg Magnesium Sulfate 2 gm Folic Acid Inj [Folic Acid] 1 mg Sodium Chloride 0.9% [Normal Saline 0.9%] 1,000 ml IV DAILY 10/04/22 Dinner Low Fat Diet [DIET] 10/04/22 21:00 Pantoprazole [Protonix] 40 mg PO BID 10/05/22 05:00 BMP - BASIC METABOLIC PANEL [CHEM] DAILYLAB CBC - COMP BLD CT W/AUTO DIFF [HEME] DAILYLAB 10/06/22 05:00 BMP - BASIC METABOLIC PANEL [CHEM] DAILYLAB CBC - COMP BLD CT W/AUTO DIFF [HEME] DAILYLAB 10/07/22 05:00 BMP - BASIC METABOLIC PANEL [CHEM] DAILYLAB Subjective - Subjective Patient Reports: Feeling Better, No Complaints (He is hungry, had no pain with clear liquids) Objective Vital Signs: Vital Signs - 24 hr 10/03/22 10/04/22 10/04/22 23:46 04:57 08:14 Temperature 36.8 C 36.4 C L 36.6 C Heart Rate [ 86 76 74 Brachial] Respiratory 18 18 18 Rate Blood Pressure Blood Pressure 147/96 H 146/98 H 146/94 H [Right Brachial artery] O2 Saturation 97 97 95 10/04/22 10/04/22 10/04/22 09:36 12:18 15:52 Temperature 36.7 C 36.8 C Heart Rate [ 73 87 Brachial] Respiratory 18 18 Rate Blood Pressure 146/98 H Blood Pressure 135/94 H 133/96 H [Right Brachial artery] O2 Saturation 98 96 10/04/22 20:03 Temperature 36.8 C Heart Rate [ 83 Brachial] Respiratory 18 Rate Blood Pressure Blood Pressure 129/95 H [Right Brachial artery] O2 Saturation 96 Oxygen O2 Source Room air I&O (Last 24 Hrs): Intake and Output Totals x24h 10/02/22 10/03/22 10/04/22 22:59 23:59 23:59 Intake Total 960 Output Total Balance 960 General: Alert, Oriented x3 HEENT: Atraumatic Neck: Supple Neuro: Alert, Non Focal Cardiovascular: Regular rate Respiratory: No respiratory distress Abdomen: Normal bowel sounds, Soft, Other (Mild epigastric tenderness) Extremities: No clubbing, No edema, No tenderness/swelling - Results Results: Laboratory Results WBC 10.3 x10^3/uL (4.8-10.8) 10/04/22 04:48 RBC 4.37 10^6/uL (4.70-6.10) L 10/04/22 04:48 Hgb 14.2 g/dL (14.0-18.0) 10/04/22 04:48 Hct 44.6 % (42.0-52.0) 10/04/22 04:48 MCV 102.1 fL (80.0-94.0) H 10/04/22 04:48 MCH 32.5 pg (27.0-31.0) H 10/04/22 04:48 MCHC 31.8 g/dL (32.0-36.0) L 10/04/22 04:48 RDW 14.2 % (12.0-15.0) 10/04/22 04:48 Plt Count 441 10^3/uL (130-450) 10/04/22 04:48 MPV 9.0 fL (7.4-11.4) 10/04/22 04:48 Neut # (Auto) 5.7 10^3/uL (1.5-6.6) 10/04/22 04:48 Lymph # (Auto) 2.8 10^3/uL (1.5-3.5) 10/04/22 04:48 [place] # (Auto) 0.8 10^3/uL (0.0-1.0) 10/04/22 04:48 Eos # (Auto) 0.8 10^3/uL (0.0-0.7) H 10/04/22 04:48 Baso # (Auto) 0.1 10^3/uL (0.0-0.1) 10/04/22 04:48 Absolute Nucleated RBC 0.00 x10^3/uL 10/04/22 04:48 Nucleated RBC % 0.0 /100WBC 10/04/22 04:48 PT 14.4 secs (9.9-12.6) H 10/02/22 07:46 INR 1.3 (0.8-1.2) H 10/02/22 07:46 Sodium 145 mmol/L (135-145) 10/04/22 04:48 Potassium 3.5 mmol/L (3.5-5.0) 10/04/22 04:48 Chloride 105 mmol/L (101-111) 10/04/22 04:48 Carbon Dioxide 29 mmol/L (21-32) 10/04/22 04:48 Anion Gap 11.0 (6-13) 10/04/22 04:48 BUN < 5 mg/dL (6-20) L 10/04/22 04:48 Creatinine 0.7 mg/dL (0.6-1.2) 10/04/22 04:48 Estimated GFR (MDRD) 121 (>89) 10/04/22 04:48 Glucose 103 mg/dL (70-100) H 10/04/22 04:48 Lactic Acid 1.1 mmol/L (0.5-2.2) 10/02/22 10:37 Calcium 8.9 mg/dL (8.5-10.3) 10/04/22 04:48 Total Bilirubin 0.5 mg/dL (0.2-1.0) 10/03/22 04:46 AST 34 IU/L (10-42) 10/03/22 04:46 ALT 19 IU/L (10-60) 10/03/22 04:46 Alkaline Phosphatase 72 IU/L (42-121) 10/03/22 04:46 Troponin I High Sens 3.4 ng/L (2.3-19.7) 10/02/22 10:24 Total Protein 5.9 g/dL (6.7-8.2) L 10/03/22 04:46 Albumin 2.9 g/dL (3.2-5.5) L 10/03/22 04:46 Globulin 3.0 g/dL (2.1-4.2) 10/03/22 04:46 Albumin/Globulin Ratio 1.0 (1.0-2.2) 10/03/22 04:46 Lipase 39 U/L (22-51) 10/04/22 04:48 Ethyl Alcohol < 5.0 mg/dL 10/01/22 18:15 Sepsis Event Note (H) - Evaluation Current Stage of Sepsis: Ruled out
[2022-10-05] MEDS: HYDROmorphone 1 MG/ML CARPUJECT IVP PRN ×3 (00:21→09:03)
[2022-10-05] MEDS: SODIUM CHLORIDE FLUSH 0.9% 10 ML SYRINGE IVP SCH ×2 (00:21→02:36)
[2022-10-05 06:17] LABS: BASOPHILS # (AUTO) 0.1 10^3/uL (0.0-0.1); BASOPHILS % (AUTO) 0.5 %; EOSINOPHILS # (AUTO) 0.7 10^3/uL (0.0-0.7); EOSINOPHILS % (AUTO) 6.1 %; HCT - HEMATOCRIT 41.4 % (42.0-52.0); HGB - HEMOGLOBIN 13.5 g/dL (14.0-18.0); LYMPHOCYTES % (AUTO) 28.4 %; MEAN CORPUSCULAR HEMOGLOBIN 32.8 pg (27.0-31.0); MEAN CORPUSCULAR HGB CONC 32.6 g/dL (32.0-36.0); MEAN CORPUSCULAR VOLUME 100.5 fL (80.0-94.0); MEAN PLATELET VOLUME 9.2 fL (7.4-11.4); MONOCYTES % (AUTO) 9.2 %; NEUTROPHILS # (AUTO) 5.9 10^3/uL (1.5-6.6); NEUTROPHILS % (AUTO) 55.4 %; PLT - PLATELET COUNT 414 10^3/uL (130-450); RED BLOOD COUNT 4.12 10^6/uL (4.70-6.10); RED CELL DISTRIBUTION WIDTH 14.1 % (12.0-15.0); WHITE BLOOD COUNT 10.7 x10^3/uL (4.8-10.8)
[2022-10-05 06:26] LABS: BUN - BLOOD UREA NITROGEN < 5 mg/dL (6-20); CALCIUM 8.1 mg/dL (8.5-10.3); CARBON DIOXIDE - CO2 31 mmol/L (21-32); CHLORIDE 99 mmol/L (101-111); CREATININE 0.7 mg/dL (0.6-1.2); GFR - MDRD 121 (>89); GLUCOSE 115 mg/dL (70-100); POTASSIUM 2.9 mmol/L (3.5-5.0); SODIUM 139 mmol/L (135-145)
[2022-10-05] MEDS: EMOLLIENT CREAM 57 GM TUBE TOP SCH (09:03)
[2022-10-05] MEDS: PANTOPRAZOLE 40 MG TABLET PO SCH (09:03)
[2022-10-05] MEDS: MULTIVITAMIN 10 ML, THIAMINE INJ 100 MG, MAGNESIUM SULFATE 2 GM, FOLIC ACID INJ 1 MG in... IV SCH ×5 (09:11)
[2022-10-05 09:15] VITALS: BP 147/98
--- NOTE | 2022-10-05 09:22 | Discharge Plan ---
Discharge Plan Problem Reviewed?: Yes Disposition: Home, Self Care Condition: Fair Prescriptions: Pnv No.95/Ferrous Fum/Folic AC [ Caplet] 1 each PO DAILY #30 tablet Thiamine [Vitamin B-1] 100 mg PO DAILY #30 tablet Diet: Regular (small, low fat meals) Activity Restrictions: Activity as Tolerated Shower Restrictions: No Driving Restrictions: Yes (no driving if taking oxy) Health Concerns: You presented to the hospital with abdominal pain with nausea, vomiting, and just dry heaves. You have a history of alcohol abuse and we found you to have pancreatitis. Pancreatitis was moderate to severe. You are now better but you are developing early cyst within the pancreas that will need follow-up. We started feeding you regular food on October 04, and you have tolerated that with no pain. Mild diarrhea. Plan of Treatment: 1. Stay clean and sober. Absolutely no alcohol, even nonalcoholic beer, for the rest of your life. 2. Please see your primary care provider in follow-up in the next week or 2. You see Orozco in [facility] to [place]. They need to follow-up on the pseudocyst that is formed in your pancreas. They will need to do a CAT scan in the next month or 2. If the CAT scan of your abdomen shows that the cyst is getting smaller nothing needs to be done. If the CAT scan of your abdomen shows that the cyst is getting bigger, you will need to have it drained. 3. Please take a vitamin and thiamine on a daily basis to help your bone marrow, and nerves recover from alcohol abuse Care Goals: To stay clean and sober for the rest of your life and to get through this acute episode of pancreatitis with his complications of a pseudocyst Assessment: Patient is alert, oriented, no tremors, not diaphoretic, no hypertension or tachycardia No Smoking: If you smoke, Please STOP! Call for help.
--- NOTE | 2022-10-05 11:41 | DISCHARGE SUMMARY ---
"Discharge Summary Admit Date: 10/01/22 Discharge Date: 10/05/22 Discharging Provider: Anyi Benavides MD Primary Care Provider: [facility] ([facility]) Code Status: Attempt Resuscitation Condition at Discharge: Fair Discharge Disposition: 01 Home, Self Care - DIAGNOSES Discharge Diagnoses with Status of Each Condition: 1. Alcoholic pancreatitis 2. Pancreatic pseudocyst 3. Gastritis 4. Alcohol abuse 5. Hypertension 6. Tobacco use 7. Eczema 8. Chest pain - HPI History of Present Illness: 46-year-old gentleman with recurrent pancreatitis. He does have a history of alcoholism but has been drinking much less than usual lately. Did drink a couple of weeks ago. Last 3 days he had severe upper abdominal pain and left upper quadrant pain associate with vomiting but no hematemesis. His bowel movements had been normal until today he had diarrhea. Feels similar to but worse than prior pancreatitis. 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, denies any fever no chills no other complaints, states was exposed to some chemical earlier this weak Pain in in the midepigastric area comes and goes feels like a squeezing sensation last drink few days aogo and does state that he has cut down his drinking History - Past Medical History Cardiovascular: reports: None Respiratory: reports: None Neuro: reports: None Endocrine/Autoimmune: reports: None GI: reports: Pancreatitis, Other : reports: None HEENT: reports: None Psych: reports: Anxiety, Other (ETOH use) Musculoskeletal: reports: Chronic back pain, Other (Right lateral hip pain diagnosed as trochanteric tendinitis with previous physical therapy and some anti-inflammatories. Ongoing pain in that area.) Derm: reports: Other - CONSULTS | PROCEDURES Procedures: Abdomen and pelvis CT scan on October 01 had hypoattenuation of the liver consistent with fatty infiltration. Small cyst laterally in the left hepatic lobe. Gallbladder was normal, and there is no biliary ductal dilatation. There is decreased peripancreatic fat stranding and fluid compared to prior study on September 03, 2022. Findings are consistent with residual sequela of pancreatitis. Small hypoenhancing region within the pancreatic tail consistent with necrosis which is more well-defined when compared to the prior study. There is prominent gastric wall thickening with mucosal enhancement consistent with gastritis. A small amount of loculated fluid is demonstrated tracking laterally along the gastric fundus. Colonic diverticulosis without diverticulitis. Small amount of intraperitoneal free fluid in the pelvis, no free air. A repeat CT again September 06. Fluid collection along the undersurface of the left hepatic lobe measuring 4.3 x 1.8 cm. Adjacent to this collection the liver demonstrates hyper attenuation. The pancreas demonstrates homogenous enhancement with ductal irregularity and peripancreatic fat standing. This is felt to be unchanged from the previous CT. And the similar pancreatic inflammatory changes from acute pancreatitis. Chest x-ray with without acute cardiopulmonary disease - HOSPITAL COURSE Hospital Course: The patient was treated with comfort measures of IV pain medication for pain, IV antiemetics for nausea, and IV fluids for hydration. His pain gradually resolved to the point that he was able to take oral intake. He was eating 100% of his food by dinner on October 04 and the day of discharge breakfast. Had a large bowel movement the day before discharge. Was felt stable enough to return to home. I have asked him to please stay status clean and sober. He is not to drink any alcohol even low alcoholic beer for the rest of his life. I like him to follow-up with his primary care provider. I explained to him that he has a new cyst that is forming and that he will need a follow-up CT scan of his abdomen in the next month to 2 months to make sure the cyst resolved on its own. If it does not resolve, I told him that they need to harden off and then they are drained by interventional radiology. He received vitamin supplementation for his alcohol abuse. That included a banana bag the first day or 2 of admission and he was transitioned over to oral vitamins. Was resumed on his usual home meds for high blood pressure. At discharge temperature was 36.8. Heart rate 80. Blood pressure 147/98. Respirations 18. 97% on room air. He is a 5 foot 9 inch male, 79.5 kg. He was alert, oriented to person place and time. Had no tremors, distress. He was able to transition from supine to sitting to standing without assist. Was going to the bathroom on his own. He still had tenderness in the epigastrium and left upper quadrant that was mild. But no rebound or guarding. Normal bowel sounds. Extremities had no edema. Lipase was normal the day before discharge 39. Potassium was low on the day of discharge to 2.9 and received potassium supplementation. White cell count was normal on the of at 10.7. Greater than 30 minutes was spent coordinating discharge. This document was made in part using voice recognition software. While efforts are made to proofread this document, sound alike and grammatical errors may occur. - ALLERGIES Allergies/Adverse Reactions: Allergies Allergy/AdvReac Type Severity Reaction Status Date / Time No Known Drug Allergies Allergy Verified 10/06/22 21:47 - MEDICATIONS Home Medications: Ambulatory Orders Medication Instructions Recorded Confirmed Escitalopram Oxalate 20 mg PO DAILY 10/17/21 10/02/22 Gabapentin [Neurontin] 300 mg PO BID 10/17/21 10/02/22 Propranolol HCl 20 mg PO BID PRN 10/17/21 10/02/22 Dicyclomine [Bentyl] 10 mg PO TID PRN 02/23/22 10/02/22 amLODIPine [Norvasc] 5 mg PO DAILY #30 tablet 02/26/22 10/02/22 Oxycodone HCl/Acetaminophen 1 - 2 each PO Q6H PRN #14 tablet 08/18/22 10/02/22 [Percocet 5-325 mg Tablet] Promethazine [Phenergan] 25 mg PO Q6H PRN #10 tab 09/03/22 10/02/22 Lisinopril [Zestril] 1 tab PO DAILY 10/02/22 10/02/22 Magnesium Oxide [Mag Ox] 1 tab PO DAILY 10/02/22 10/02/22 Calamine/Zinc Oxide [Calamine 1 applic TOP PRN PRN each 10/05/22 Lotion] Pnv No.95/Ferrous Fum/Folic AC 1 each PO DAILY #30 tablet 10/05/22 [ Caplet] Thiamine [Vitamin B-1] 100 mg PO DAILY #30 tablet 10/05/22 oxyCODONE [Roxicodone] 5 mg PO Q4-6H #30 tablet 10/05/22 oxyCODONE [Roxicodone] 10 mg PO Q4H PRN #20 tablet 10/07/22 - LABS Result Diagrams: 10/05/22 05:10 10/05/22 05:10 - SEPSIS Current Stage of Sepsis: Ruled out"
== END 2022-10-05 11:05 | disposition home or self-care (01) | DRG 438 ==
LOC: ED 17:52 → MS2 21:14 → OBSVTOIN 10-02 10:18
PROVIDERS: ADMIT Internal Medicine; ATTEND Specialist
DX: K85.21 Alcohol induced acute pancreatitis with uninfected necrosis (principal); K63.1 Perforation of intestine (nontraumatic); K86.3 Pseudocyst of pancreas; F10.20 Alcohol dependence, uncomplicated; F41.9 Anxiety disorder, unspecified; K29.70 Gastritis, unspecified, without bleeding; I10 Essential (primary) hypertension; F17.210 Nicotine dependence, cigarettes, uncomplicated; L30.9 Dermatitis, unspecified; R07.89 Other chest pain; G89.29 Other chronic pain; M54.9 Dorsalgia, unspecified; M70.61 Trochanteric bursitis, right hip; K76.0 Fatty (change of) liver, not elsewhere classified; K21.9 Gastro-esophageal reflux disease without esophagitis; F43.9 Reaction to severe stress, unspecified
CPT/HCPCS: 36415; 71045; 74177; 80048; 80053; 80320; 83605; 83690; 84484; 85025; 85610; 93005; 96374; 96375; 96376; 99285; A9270; G0378; J1170; J1200; J3411; Q9967

== ENCOUNTER 2022-10-06 21:28 | Emergency (ER) | payer MEDICAID ==
--- NOTE | 2022-10-06 22:15 | ED Physician Documentation ---
History of Present Illness - Stated complaint Stated Complaint: ABD PX - Chief complaint Chief Complaint: Abd Pain - Additonal information Additional information: Patient 46-year-old male presenting to the emergency department with abdominal and chest pain. 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 There was some concern for possible perforation however none was identified during his previous hospitalization. He reports that he had increased pain immediately upon her returning home that is not helped by the oxycodone he was prescribed. States that he has been able to tolerate food. Denies continued alcohol or illicit substance abuse. Otherwise denies for fever, nausea, vomiting, diarrhea, constipation, new rash, new weakness/numbness/tingling in any extremity. Review of Systems Constitutional: denies: Fever Eyes: denies: Loss of vision Ears: denies: Loss of hearing Nose: denies: Rhinorrhea / runny nose Cardiac: reports: Chest pain / pressure Respiratory: denies: Dyspnea GI: reports: Abdominal Pain : denies: Dysuria Skin: denies: Rash PD PAST MEDICAL HISTORY - Past Medical History Cardiovascular: None Respiratory: None Neuro: None Endocrine/Autoimmune: None GI: Pancreatitis, Other : None HEENT: None Psych: Anxiety, Other Musculoskeletal: Chronic back pain, Other Derm: Other - Past Surgical History Past Surgical History: No - Present Medications Home Medications: Ambulatory Orders Medication Instructions Recorded Confirmed RX: Escitalopram Oxalate 20 mg PO DAILY 10/17/21 10/02/22 RX: Gabapentin [Neurontin] 300 mg PO BID 10/17/21 10/02/22 RX: Propranolol HCl 20 mg PO BID PRN 10/17/21 10/02/22 RX: Dicyclomine [Bentyl] 10 mg PO TID PRN 02/23/22 10/02/22 RX: amLODIPine [Norvasc] 5 mg PO DAILY #30 tablet 02/26/22 10/02/22 RX: Oxycodone HCl/Acetaminophen 1 - 2 each PO Q6H PRN #14 tablet 08/18/22 10/02/22 [Percocet 5-325 mg Tablet] RX: Promethazine [Phenergan] 25 mg PO Q6H PRN #10 tab 09/03/22 10/02/22 RX: Lisinopril [Zestril] 1 tab PO DAILY 10/02/22 10/02/22 RX: Magnesium Oxide [Mag Ox] 1 tab PO DAILY 10/02/22 10/02/22 Pnv No.95/Ferrous Fum/Folic AC 1 each PO DAILY #30 tablet 10/05/22 [ Caplet] RX: Calamine/Zinc Oxide [Calamine 1 applic TOP PRN PRN each 10/05/22 Lotion] RX: Thiamine [Vitamin B-1] 100 mg PO DAILY #30 tablet 10/05/22 RX: oxyCODONE [Roxicodone] 5 mg PO Q4-6H #30 tablet 10/05/22 - Allergies Allergies/Adverse Reactions: Allergies Allergy/AdvReac Type Severity Reaction Status Date / Time No Known Drug Allergies Allergy Verified 10/06/22 21:47 - Social History Does the pt smoke?: Yes Smoking Status: Current every day smoker Does the pt drink ETOH?: Yes Does the pt have substance abuse?: No - Immunizations Immunizations are current?: Yes - POLST Patient has POLST: No POLST Status: Full Code PD ED PE NORMAL - Vitals Vital signs reviewed: Yes Results - Vitals Vitals: Vital Signs - 24 hr 10/06/22 10/06/22 10/07/22 21:43 23:00 01:00 Temperature 37.5 C Heart Rate 95 93 Respiratory 17 19 Rate Blood Pressure 131/86 H 125/86 H O2 Saturation 97 95 10/07/22 03:00 Temperature Heart Rate 83 Respiratory 14 Rate Blood Pressure 115/80 O2 Saturation 93 Oxygen O2 Source Room air - EKG (time done) 2204 EKG releavant findings:: EKG personally interpreted by author of this note. Relevant findings are: Sinus rhythm with rate 99 bpm. Normal axis. Normal IL, QRS, QTc intervals. No ST segment elevations or T wave wave inversions. - Labs Labs: Laboratory Tests 10/06/22 10/06/22 10/06/22 22:36 22:36 22:36 WBC 12.4 H RBC 4.58 L Hgb 15.0 Hct 45.6 MCV 99.6 H MCH 32.8 H MCHC 32.9 RDW 14.1 Plt Count 418 MPV 8.7 Neut # (Auto) 8.0 H Lymph # (Auto) 2.6 Allen # (Auto) 1.3 H Eos # (Auto) 0.4 Baso # (Auto) 0.0 Absolute Nucleated RBC 0.00 Nucleated RBC % 0.0 PT 14.4 H INR 1.3 H Sodium 138 Potassium 3.7 Chloride 100 L Carbon Dioxide 29 Anion Gap 9.0 BUN 5 L Creatinine 0.7 Estimated GFR (MDRD) 121 Glucose 118 H Lactic Acid Calcium 8.7 Magnesium 1.8 Total Bilirubin 0.8 AST 22 ALT 16 Alkaline Phosphatase 75 Troponin I High Sens Total Protein 6.4 L Albumin 3.0 L Globulin 3.4 Albumin/Globulin Ratio 0.9 L Lipase 105 H Urine Color Urine Clarity Urine pH Ur Specific [place] Urine Protein Urine Glucose (UA) Urine Ketones Urine Occult Blood Urine Nitrite Urine Bilirubin Urine Urobilinogen Ur Leukocyte Esterase Ur Microscopic Review Urine Culture Comments Urine Opiates Screen Ur Oxycodone Screen Urine Methadone Screen Ur Propoxyphene Screen Ur Barbiturates Screen Ur Tricyclics Screen Ur Phencyclidine Scrn Ur Amphetamine Screen U Methamphetamines Scrn U Benzodiazepines Scrn Urine Cocaine Screen U Cannabinoids Screen Ethyl Alcohol < 5.0 10/06/22 10/06/22 10/07/22 22:36 22:36 00:25 WBC RBC Hgb Hct MCV MCH MCHC RDW Plt Count MPV Neut # (Auto) Lymph # (Auto) Allen # (Auto) Eos # (Auto) Baso # (Auto) Absolute Nucleated RBC Nucleated RBC % PT INR Sodium Potassium Chloride Carbon Dioxide Anion Gap BUN Creatinine Estimated GFR (MDRD) Glucose Lactic Acid 1.0 Calcium Magnesium Total Bilirubin AST ALT Alkaline Phosphatase Troponin I High Sens 4.5 Total Protein Albumin Globulin Albumin/Globulin Ratio Lipase Urine Color YELLOW Urine Clarity CLEAR Urine pH 8.5 H Ur Specific [place] <=1.005 Urine Protein TRACE Urine Glucose (UA) NEGATIVE Urine Ketones NEGATIVE Urine Occult Blood NEGATIVE Urine Nitrite NEGATIVE Urine Bilirubin NEGATIVE Urine Urobilinogen 0.2 (NORMAL) Ur Leukocyte Esterase NEGATIVE Ur Microscopic Review NOT INDICATED Urine Culture Comments NOT INDICATED Urine Opiates Screen POSITIVE H Ur Oxycodone Screen POSITIVE H Urine Methadone Screen NEGATIVE Ur Propoxyphene Screen NEGATIVE Ur Barbiturates Screen NEGATIVE Ur Tricyclics Screen NEGATIVE Ur Phencyclidine Scrn NEGATIVE Ur Amphetamine Screen NEGATIVE U Methamphetamines Scrn POSITIVE H U Benzodiazepines Scrn POSITIVE H Urine Cocaine Screen NEGATIVE U Cannabinoids Screen NEGATIVE Ethyl Alcohol PD Medical Decision Making - ED course Complexity details: reviewed old records, reviewed results, re-evaluated patient, considered differential, d/w patient, d/w reporting process consultant Drug Therapy Requiring Monitoring for Toxicity: IV hydromorphone ED course: Patient is 46-year-old male presenting to the emergency department with abdominal pain. Recently hospitalized at our facility for pancreatitis with pancreatic pseudocyst. Followed carefully by the hospitalist service and general surgery. Afebrile, hemodynamically stable on arrival to the emergency department. Generalized tenderness noted on exam without indications of peritonitis. Patient had a white blood cell count of 12.4 which was mildly uptrending in comparison to his most previous at time of discharge. He also had an elevation in his lipase at 105 which was also up trended from approximately 40 at time of discharge. His toxicologic screens were positive for oxycodone, opiates, methamphetamines and benzodiazepines. He denied methamphetamine use on repeat interview. CT scan of the Abdomen and pelvis demonstrated findings consistent with persistent gastritis as well as a loculated fluid collection between the gastric fundus and inferior left hepatic lobe similar in size to his prior studies. These findings were can patible with abscess possibly secondary to contained gastric perforation. Additionally there was mild perihepatic fat stranding redemonstrated and consistent as a sequela I of pancreatitis with a small area of hypoattenuation at the Som pancreatic body consistent with necrosis. His case was discussed directly with [facility] general [facility]. At this time she believes that these findings are most consistent with a peripancreatic cyst and that there is no surgical intervention however does report that if need be surgery is available for consultation if the patient requires hospitalization for pain control. At this time there are no beds available either in-house or regionally. Patient was boarded in the emergency department and given IV and p.o. medications for pain control. I will be signing him out to the oncoming physician, please see their documentation for further detail. - Consults Consults: Consulted (name) (Dr. Gordon, general surgery) Departure - Departure Clinical Impression: Methamphetamine abuse Chronic pancreatitis Qualifiers: Pancreatitis type: alcohol induced Qualified Code(s): K86.0 - Alcohol-induced chronic pancreatitis
[2022-10-06 22:45] LABS: BASOPHILS % (AUTO) 0.3 %; EOSINOPHILS # (AUTO) 0.4 10^3/uL (0.0-0.7); EOSINOPHILS % (AUTO) 3.2 %; HCT - HEMATOCRIT 45.6 % (42.0-52.0); LYMPHOCYTES # (AUTO) 2.6 10^3/uL (1.5-3.5); LYMPHOCYTES % (AUTO) 20.8 %; MEAN CORPUSCULAR HEMOGLOBIN 32.8 pg (27.0-31.0); MEAN CORPUSCULAR HGB CONC 32.9 g/dL (32.0-36.0); MEAN CORPUSCULAR VOLUME 99.6 fL (80.0-94.0); MEAN PLATELET VOLUME 8.7 fL (7.4-11.4); MONOCYTES # (AUTO) 1.3 10^3/uL (0.0-1.0); MONOCYTES % (AUTO) 10.6 %; NEUTROPHILS % (AUTO) 64.6 %; PLT - PLATELET COUNT 418 10^3/uL (130-450); RED BLOOD COUNT 4.58 10^6/uL (4.70-6.10); RED CELL DISTRIBUTION WIDTH 14.1 % (12.0-15.0); WHITE BLOOD COUNT 12.4 x10^3/uL (4.8-10.8)
[2022-10-06 22:52] LABS: INR 1.3 (0.8-1.2); PT - PROTHROMBIN TIME 14.4 secs (9.9-12.6)
[2022-10-06 23:00] LABS: ALBUMIN/GLOBULIN RATIO 0.9 (1.0-2.2); ALKALINE PHOSPHATASE 75 IU/L (42-121); ALT ALANINE AMINOTRANSFERASE 16 IU/L (10-60); AST ASPARTATE AMINOTRANSFERASE 22 IU/L (10-42); BILIRUBIN,TOTAL 0.8 mg/dL (0.2-1.0); BUN - BLOOD UREA NITROGEN 5 mg/dL (6-20); CALCIUM 8.7 mg/dL (8.5-10.3); CARBON DIOXIDE - CO2 29 mmol/L (21-32); CHLORIDE 100 mmol/L (101-111); CREATININE 0.7 mg/dL (0.6-1.2); ETOH - ETHANOL < 5.0 mg/dL; GFR - MDRD 121 (>89); GLUCOSE 118 mg/dL (70-100); LIPASE 105 U/L (22-51); MAGNESIUM 1.8 mg/dL (1.7-2.8); POTASSIUM 3.7 mmol/L (3.5-5.0); SODIUM 138 mmol/L (135-145); TOTAL PROTEIN 6.4 g/dL (6.7-8.2)
[2022-10-06] MEDS ORDERED: iohexoL-300 100 ML VIAL ONE (23:22)
[2022-10-06] MEDS: HYDROmorphone 1 MG/ML CARPUJECT IVP PRN (23:24)
[2022-10-07] MEDS ORDERED: iohexoL-300 100 ML VIAL IVP ONE (00:34)
[2022-10-07 00:37] LABS: MUDS CUTOFF CONCENTRATIONS CUTOFF CONC BELOW:
[2022-10-07 00:39] LABS: BILIRUBIN,URINE NEGATIVE (NEGATIVE); GLUCOSE, URINE (UA) NEGATIVE (NEGATIVE); KETONES,URINE (UA) NEGATIVE (NEGATIVE); LEUKOCYTE ESTERASE, URINE NEGATIVE (NEGATIVE); NITRITE,URINE NEGATIVE (NEGATIVE); OCCULT BLOOD,URINE NEGATIVE (NEGATIVE); PH,URINE 8.5 PH (5.0-7.5); PROTEIN,URINE TRACE mg/dL (NEGATIVE); UROBILINOGEN,URINE 0.2 (NORMAL) E.U./dL (NORMAL)
[2022-10-07 00:44] LABS: CLARITY,URINE CLEAR (CLEAR)
[2022-10-07] MEDS: HYDROmorphone 1 MG/ML CARPUJECT IVP PRN ×2 (00:47→02:12)
[2022-10-07 00:52] LABS: AMPHETAMINE SCREEN,URINE NEGATIVE (NEGATIVE); BENZODIAZEPINES SCREEN, URINE POSITIVE (NEGATIVE); COCAINE SCREEN URINE NEGATIVE (NEGATIVE); METHADONE SCREEN, URINE NEGATIVE (NEGATIVE); METHAMPHETAMINES SCREEN, URINE POSITIVE (NEGATIVE); OPIATE SCREEN, URINE POSITIVE (NEGATIVE); THC CANNABINOID SCREEN, URINE NEGATIVE (NEGATIVE); TRICYCLIC ANTIDEPRESSANT,URINE NEGATIVE (NEGATIVE)
[2022-10-07 00:53] LABS: BARBITURATE SCREEN,UR NEGATIVE (NEGATIVE); OXYCODONE SCREEN, URINE POSITIVE (NEGATIVE); PROPOXYPHENE SCREEN, URINE NEGATIVE (NEGATIVE)
--- NOTE | 2022-10-07 01:05 | CT Report ---
PROCEDURE: ABDOMEN/PELVIS W INDICATIONS: Abd pain CONTRAST: Omni 300 100 ml TECHNIQUE: After the administration of intravenous contrast, 5 mm thick sections acquired from the diaphragms to the symphysis. 5 mm thick coronal and sagittal reformats were acquired. For radiation dose reducti on, the following was used: automated exposure control, adjustment of mA and/or kV according to [place] ent size. COMPARISON: None. FINDINGS: Image quality: Excellent. Lung bases:There is bibasilar atelectasis within the lung bases, right greater than left. Heart: Heart is normal in size. ABDOMEN: Liver:A small cyst is redemonstrated within the left hepatic lobe. There is a loculated fluid collec tion redemonstrated between the inferior left hepatic lobe and the gastric fundus. This appears simil ar in size compared to the recent prior study without adjacent fat stranding and mild hyperemia along the adjacent hepatic parenchyma. Gallbladder: Within normal limits without calcified gallstones. Biliary ducts: No biliary ductal dilatation. Pancreas:Mild residual peripancreatic fat stranding redemonstrated consistent with sequelae of pancr eatitis. A small hypoenhancing region is again noted at the junction of the pancreatic body and tail consistent with a small region of necrosis. Mild prominence of the pancreatic duct appears similar to the prior studies, measuring up to approximately 0.4 cm. No discrete pancreatic mass identified. No acute peripancreatic fluid collection. Spleen: Normal in size. Adrenal Glands: No adrenal nodules. Kidneys and Ureters: No hydronephrosis. Stomach and Bowel:There is persistent gastric wall thickening with associated mild fat stranding. Sm all and large bowel loops are normal in caliber and wall thickness. Appendix is normal. There is colo lorie diverticulosis without acute diverticulitis. Peritoneum:There is a small amount of intraperitoneal free fluid within the bilateral paracolic gutt ers extending to the pelvis. No free air. Ventral Wall: No hernia. Abdominal Nodes: No retroperitoneal or mesenteric adenopathy by size criteria. Vessels: Aorta and inferior vena cava are normal in size. PELVIS: Pelvic Organs: Unremarkable. Bladder: Unremarkable. Pelvic Nodes: No enlarged lymph nodes. Miscellaneous: No inguinal hernias. Bones: Visualized osseous structures demonstrate no suspicious lesions. IMPRESSION: 1. Persistent gastric wall thickening with adjacent fat stranding suggestive of a gastritis. 2. Loculated fluid collection between the gastric fundus and inferior left hepatic lobe appears simil ar in size compared to the prior study. Adjacent hyperemia of the hepatic parenchyma and fat strandin g are noted. The findings are compatible with an abscess, likely secondary to a contained gastric per foration as described previously. 3. Mild perihepatic fat stranding redemonstrated consistent with sequelae of pancreatitis. A small re gion of hypoenhancement the junction of the pancreatic body and tail is consistent with necrosis. No acute peripancreatic fluid collections. 4. Small amount of intraperineal free fluid is likely reactive secondary to sequelae of pancreatitis. Reviewed by: Rony Moody MD on 10/07/2022 1:04 AM PDT Approved by: Rony Moody MD on 10/07/2022 1:04 AM PDT Station ID: [id number]
[2022-10-07] MEDS ORDERED: oxyCODONE 5 MG TABLET PO ONE (03:00)
[2022-10-07] MEDS ORDERED: HYDROmorphone 1 MG/ML CARPUJECT IVP STA (11:17)
[2022-10-07 11:41] VITALS: BP 126/90
--- NOTE | 2022-10-20 20:43 | ED Physician Documentation ---
ED Addendum - Addendum Addendum: 10/20/22 20:37 This pt was signed out to me at change of shift, pending final disposition. He had a h/o pancreatitis, for which he had been recently admitted, and had returned with recurrence of pain since discharge. He had been well-controlled with IV analgesia during his stay. The pt's CT was read by the radiologist as showing no significant change, and labs showed improvement. Dr. Villa had evaluated the pt, and felt he may need admission for pain control again, but this was pending daytime bed status. The pt was comfortable on my evaluation. He was tolerating PO fluids. Report was given to me that there were no beds available. I discussed the case again with Dr. Villa, and she felt that if the pt was tolerating PO and there was reasonable pain control, he could go home with return precautions. I discussed the plan with the pt, who was agreeable. We have discussed the usual indications for return.
== END 2022-10-07 12:05 | disposition home or self-care (01) ==
LOC: ED 21:28
DX: F15.10 Other stimulant abuse, uncomplicated (principal); K86.0 Alcohol-induced chronic pancreatitis; F17.200 Nicotine dependence, unspecified, uncomplicated; Z79.899 Other long term (current) drug therapy
CPT/HCPCS: 36415; 74177; 80053; 80306; 80320; 81003; 83605; 83690; 83735; 84484; 85025; 85610; 93005; 96374; 96376; 99284; 99285; A9270; J1170; Q9967; 81001; 87086

== ENCOUNTER 2022-10-14 12:54 | Outpatient (CLI) | payer MEDICAID | END 2022-10-14 23:59 | disposition short-term general hospital (02) | LOC: EMS 12:54 | DX: R10.12 Left upper quadrant pain (principal); R10.32 Left lower quadrant pain; R10.814 Left lower quadrant abdominal tenderness; R10.812 Left upper quadrant abdominal tenderness | CPT/HCPCS: A0425; A0429 ==

== ENCOUNTER 2022-11-01 23:12 | Outpatient (CLI) | payer MEDICAID | END 2022-11-01 23:59 | disposition critical access hospital (66) | LOC: EMS 23:12 | DX: R10.11 Right upper quadrant pain (principal); R10.12 Left upper quadrant pain; R11.10 Vomiting, unspecified; I10 Essential (primary) hypertension | CPT/HCPCS: A0425; A0429; A0999 ==

== ENCOUNTER 2022-11-01 23:44 | Inpatient (IN) | payer MEDICAID ==
[2022-11-02 00:07] LABS: BASOPHILS # (AUTO) 0.1 10^3/uL (0.0-0.1); BASOPHILS % (AUTO) 0.5 %; EOSINOPHILS # (AUTO) 0.6 10^3/uL (0.0-0.7); EOSINOPHILS % (AUTO) 3.8 %; HCT - HEMATOCRIT 44.2 % (42.0-52.0); HGB - HEMOGLOBIN 14.1 g/dL (14.0-18.0); LYMPHOCYTES # (AUTO) 3.8 10^3/uL (1.5-3.5); LYMPHOCYTES % (AUTO) 25.8 %; MEAN CORPUSCULAR HEMOGLOBIN 31.1 pg (27.0-31.0); MEAN CORPUSCULAR HGB CONC 31.9 g/dL (32.0-36.0); MEAN CORPUSCULAR VOLUME 97.6 fL (80.0-94.0); MEAN PLATELET VOLUME 8.9 fL (7.4-11.4); MONOCYTES # (AUTO) 0.8 10^3/uL (0.0-1.0); MONOCYTES % (AUTO) 5.7 %; NEUTROPHILS # (AUTO) 9.4 10^3/uL (1.5-6.6); NEUTROPHILS % (AUTO) 63.7 %; PLT - PLATELET COUNT 541 10^3/uL (130-450); RED BLOOD COUNT 4.53 10^6/uL (4.70-6.10); RED CELL DISTRIBUTION WIDTH 13.3 % (12.0-15.0); WHITE BLOOD COUNT 14.7 x10^3/uL (4.8-10.8)
[2022-11-02] MEDS ORDERED: KETOROLAC 30 MG/ML VIAL IVP STA (00:16)
--- NOTE | 2022-11-02 00:24 | ED Physician Documentation ---
PD HPI ABD PAIN - Stated complaint Stated Complaint: ABD PAIN, VOMITING - Chief complaint Chief Complaint: Abd Pain - History obtained from History obtained from: Patient - Additional information Additional information: 46-year-old man with history of alcoholic pancreatitis with multiple ED visits and recent admission presents with persistent epigastric pain since discharge. He states that he ran out of his meds this morning and his doctor would not refill them and he has had worsening pain since that time. He called EMS this evening due to severe pain and was administered 200 ucg of fentanyl on route. He states it took the edge off but his pain is still 10 out of 10. Denies fever, vomiting, diarrhea. Review of Systems Constitutional: denies: Fever Cardiac: denies: Chest pain / pressure Respiratory: denies: Dyspnea GI: reports: Abdominal Pain, Nausea, Vomiting, Diarrhea PD PAST MEDICAL HISTORY - Past Medical History Cardiovascular: None Respiratory: None Neuro: None Endocrine/Autoimmune: None GI: Pancreatitis, Other : None HEENT: None Psych: Anxiety, Other Musculoskeletal: Chronic back pain, Other Derm: Other - Past Surgical History Past Surgical History: No - Present Medications Home Medications: Ambulatory Orders Medication Instructions Recorded Confirmed Escitalopram Oxalate 20 mg PO DAILY 10/17/21 10/02/22 Gabapentin [Neurontin] 300 mg PO BID 10/17/21 10/02/22 Propranolol HCl 20 mg PO BID PRN 10/17/21 10/02/22 Dicyclomine [Bentyl] 10 mg PO TID PRN 02/23/22 10/02/22 amLODIPine [Norvasc] 5 mg PO DAILY #30 tablet 02/26/22 10/02/22 Oxycodone HCl/Acetaminophen 1 - 2 each PO Q6H PRN #14 tablet 08/18/22 10/02/22 [Percocet 5-325 mg Tablet] Promethazine [Phenergan] 25 mg PO Q6H PRN #10 tab 09/03/22 10/02/22 Lisinopril [Zestril] 1 tab PO DAILY 10/02/22 10/02/22 Magnesium Oxide [Mag Ox] 1 tab PO DAILY 10/02/22 10/02/22 Calamine/Zinc Oxide [Calamine 1 applic TOP PRN PRN each 10/05/22 Lotion] Pnv No.95/Ferrous Fum/Folic AC 1 each PO DAILY #30 tablet 10/05/22 [ Caplet] Thiamine [Vitamin B-1] 100 mg PO DAILY #30 tablet 10/05/22 oxyCODONE [Roxicodone] 5 mg PO Q4-6H #30 tablet 10/05/22 oxyCODONE [Roxicodone] 10 mg PO Q4H PRN #20 tablet 10/07/22 - Allergies Allergies/Adverse Reactions: Allergies Allergy/AdvReac Type Severity Reaction Status Date / Time No Known Drug Allergies Allergy Verified 11/01/22 23:52 - Social History Does the pt smoke?: Yes Smoking Status: Current every day smoker Does the pt drink ETOH?: Yes Does the pt have substance abuse?: No - Immunizations Immunizations are current?: Yes - POLST Patient has POLST: No POLST Status: Full Code PD ED PE NORMAL - Vitals Vital signs reviewed: Yes - General General: Alert and oriented X 3, No acute distress, Well developed/nourished, Other (patient in NAD on my arrival. sitting up in bed, looking at his phone) - HEENT HEENT: Atraumatic, PERRL, EOMI - Neck Neck: Supple, no meningeal sign - Cardiac Cardiac: RRR - Respiratory Respiratory: No respiratory distress, Clear bilaterally - Abdomen Abdomen: Non tender, Non distended Results - Vitals Vitals: Vital Signs - 24 hr 11/01/22 23:46 Temperature 98.4 C H Heart Rate 70 Respiratory 19 Rate Blood Pressure 162/117 H O2 Saturation 100 Oxygen O2 Source Room air - Labs Labs: Laboratory Tests 11/02/22 11/02/22 00:00 00:00 WBC 14.7 H RBC 4.53 L Hgb 14.1 Hct 44.2 MCV 97.6 H MCH 31.1 H MCHC 31.9 L RDW 13.3 Plt Count 541 H MPV 8.9 Neut # (Auto) 9.4 H Lymph # (Auto) 3.8 H Mitchell # (Auto) 0.8 Eos # (Auto) 0.6 Baso # (Auto) 0.1 Absolute Nucleated RBC 0.00 Nucleated RBC % 0.0 Sodium 141 Potassium 3.5 Chloride 106 Carbon Dioxide 26 Anion Gap 9.0 BUN 8 Creatinine 0.8 Estimated GFR (MDRD) 104 Glucose 122 H Calcium 9.4 Total Bilirubin 0.3 AST 23 ALT 19 Alkaline Phosphatase 60 Total Protein 6.9 Albumin 3.5 Globulin 3.4 Albumin/Globulin Ratio 1.0 Lipase 1380 H PD Medical Decision Making - ED course ED course: 46-year-old male with history of pancreatitis presents with epigastric pain, requesting IV Dilaudid by name. Will obtain CBC and abdominal panel to evaluate for possible pericarditis versus other abdominal pathology. He agreed to be given IV Toradol as a first-line medication until pancreatitis as a etiology has been evaluated. labwork uncovered leukocytosis and significantly elevated lipase. no beds available tonight therefore will admit in the morning pending bed availability. in the meantime we will board in the ED and provide IV dilaudid and IV fluids. Departure - Departure Disposition: 66 [facility] DC/[facility] Clinical Impression: Pancreatitis Condition: Stable
[2022-11-02 01:17] LABS: ALBUMIN 3.5 g/dL (3.2-5.5); BILIRUBIN,TOTAL 0.3 mg/dL (0.2-1.0); CALCIUM 9.4 mg/dL (8.5-10.3); CREATININE 0.8 mg/dL (0.6-1.2); POTASSIUM 3.5 mmol/L (3.5-5.0); TOTAL PROTEIN 6.9 g/dL (6.7-8.2)
[2022-11-02] MEDS ORDERED: HYDROmorphone 1 MG/ML CARPUJECT IVP STA (01:47)
[2022-11-02] MEDS ORDERED: SODIUM CHLORIDE 0.9% 1,000 ML IV STA ×3 (01:48)
[2022-11-02] MEDS: HYDROmorphone 1 MG/ML CARPUJECT IVP PRN ×9 (02:57→21:57)
[2022-11-02] MEDS ORDERED: LACTATED RINGERS 1,000 ML IV STA (09:52)
[2022-11-02] MEDS ORDERED: KETOROLAC 15 MG/ML VIAL IVP STA (10:24)
[2022-11-02 10:54] LABS: BILIRUBIN,TOTAL 0.5 mg/dL (0.2-1.0); CALCIUM 8.4 mg/dL (8.5-10.3); CREATININE 0.6 mg/dL (0.6-1.2); TOTAL PROTEIN 5.9 g/dL (6.7-8.2)
--- NOTE | 2022-11-02 11:00 | ED Physician Documentation ---
ED Addendum - Addendum Addendum: 11/02/22 10:40 The patient was needing extra pain medicine. I adjusted the order for him. We also renewed IV fluids. I talked with the hospitalist who will write orders on the patient.
[2022-11-02] MEDS ORDERED: SODIUM CHLORIDE FLUSH 0.9% 10 ML SYRINGE IVP PRN (11:29)
[2022-11-02] MEDS ORDERED: ACETAMINOPHEN 325 MG TABLET PO PRN (11:29)
[2022-11-02] MEDS ORDERED: PROCHLORPERAZINE 10 MG/2 ML VIAL IVP PRN (11:29)
[2022-11-02] MEDS ORDERED: ONDANSETRON 4 MG/2 ML VIAL IVP PRN (11:29)
[2022-11-02] MEDS ORDERED: ONDANSETRON ODT 4 MG TABLET TL PRN (11:29)
--- NOTE | 2022-11-02 11:45 | HISTORY & PHYSICAL EXAMINATION ---
Chief Complaint - Chief Complaint Chief Complaint: Acute on chronic pancreatitis History of Present Illness - Admitted From Admitted From:: home via EMS - History Obtained From Records Reviewed: yes History obtained from: Patient - History of Present Illness HPI Comment/Other: Patient is a 46 YO male with a history of recurrent pancreatitis who presented to the ED yesterday 11/01/22 for severe epigastric pain. He was seen here in September 2022 for acute alcoholic pancreatitis and he states that he has had zero pain-free days since then. Additionally, he has visited [facility] and in the last month for pain management. He expresses frustration with his persistent symptoms, stating that he has implemented dietary changes to reduce his risk for pancreatitis such as reducing fat intake and cutting out alcohol. In the past, he suffered from alcohol abuse, and states that he has not consumed alcohol since July 2022. Currently he has diffuse abdominal pain that is worst in the epigastric area along with mid to lower back pain. He rates his pain at an 8/10 at rest, but a 10/10 with coughing, deep breathing, and laughing. He is requesting IV Dilaudid 2 mg by name. He vomited 'mucus' twice yesterday but is not currently nauseas. He reports bloating and constipation, but attributes this to the opioids that he has been taking. He also reports losing 20 pounds in the last month and a 'tingly' sensation in his hands bilaterally. He is urinating normally. He denies skin rash, hematemesis, hematuria, or hematochezia. CT of the abdomen on 10/06/22 showed pancreatic necrosis and a 0.4 cm pancreatic pseudocyst. He reports that he had a CT last week that found more cysts. History - Past Medical History Cardiovascular: reports: None Respiratory: reports: None Neuro: reports: None Endocrine/Autoimmune: reports: None GI: reports: Pancreatitis, Other : reports: None HEENT: reports: None Psych: reports: Anxiety, Other Musculoskeletal: reports: Chronic back pain, Other (restless legs, sciatica) Derm: reports: Other - Family & Social History Family History Comment/Other: His father has an unknown known cardiac history. His mother has a history abdominal pain which is believed to be related to dairy products. Living arrangement: At home Living Situation: With family Social History Notes: He lives at home with his and child. He drinks 4 alcoholic beverages a night. He has been drinking for nearly 30 years but has quit at times for a few months. He has not been eating for about 6 months since he last quit. He does smoke about a pack a day for nearly 30 years as well. He no longer smokes marijuana. He denies any illicit drug use. - Substance History Use: Uses substance without health or social issues: Tobacco - POLST Patient has POLST: No POLST Status: Full Code Meds/Allgy - Home Medications Home Medications: Ambulatory Orders Medication Instructions Recorded Confirmed Gabapentin [Neurontin] 300 mg PO BID 10/17/21 11/02/22 Propranolol HCl 20 mg PO BID PRN 10/17/21 11/02/22 Dicyclomine [Bentyl] 10 mg PO TID PRN 02/23/22 11/02/22 amLODIPine [Norvasc] 5 mg PO DAILY #30 tablet 02/26/22 11/02/22 Promethazine [Phenergan] 25 mg PO Q6H PRN #10 tab 09/03/22 11/02/22 Pnv No.95/Ferrous Fum/Folic AC 1 each PO DAILY #30 tablet 10/05/22 11/02/22 [ Caplet] Thiamine [Vitamin B-1] 100 mg PO DAILY #30 tablet 10/05/22 11/02/22 Hydromorphone HCl 1 - 2 tab PO Q8HR PRN 11/02/22 11/02/22 Senna [Senokot] 2 tab PO QPM 11/02/22 11/02/22 - Allergies Allergies/Adverse Reactions: Allergies Allergy/AdvReac Type Severity Reaction Status Date / Time No Known Drug Allergies Allergy Verified 11/01/22 23:52 Review of Systems - Constitutional Constitutional: reports: Weight loss - Cardiovascular Cariovascular: denies: Chest pain - Respiratory Respiratory: denies: SOB at rest - Gastrointestinal Gastrointestinal: reports: Abdominal pain, Abdominal distention, Constipation, Bloating. 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 Exam - Vital Signs Reviewed Vital Signs: Yes Vital Signs: Vital Signs x48h Temp Pulse Resp BP Pulse Ox 11/02/22 10:44 78 13 134/76 H 100 11/02/22 09:28 79 18 134/94 H 99 11/02/22 09:15 73 18 134/94 H 99 11/02/22 07:30 35.7 C L 64 18 136/90 H 99 11/02/22 06:18 70 16 117/87 H 98 11/02/22 04:12 69 14 118/87 H 98 - Physical Exam General Appearance: positive: Mild distress Eyes Bilateral: positive: Normal inspection, No scleral icterus Respiratory: positive: Chest non-tender, No respiratory distress, Breath sounds nml Cardiovascular: positive: Regular rate & rhythm Abdomen: positive: Nml bowel sounds, Tenderness. negative: Guarding Back: positive: Other (No Hany or Jasso Michael sign) Skin: positive: Color nml, No rash, Warm, Dry Extremities: positive: No pedal edema Neurologic/Psychiatric: positive: Oriented x3, Mood/affect nml Sepsis Event Note (H) - Evaluation Current Stage of Sepsis: Ruled out - Sepsis Criteria Sepsis Criteria: WBC count greater than 12,000 or less than 4000 Conclusion/Plan - Problem List (1) Acute pancreatitis Conclusion/Plan: CT from today shows pancreatitis and necrosis vs peripancreatic fluid collection near pancreatic tail. Combined with his lipase of 1668, I agree with the CT findings and will proceed with pancreatitis management. Since he has no gallbladder findings on CT, I have ruled out gallstone pancreatitis. This is likely alcoholic pancreatitis due to his history of alcohol abuse and previous diagnoses of alcoholic pancreatitis. His alcohol level in September 2022 was <5 and since he has been in the hospital for 1 day, I decided not to check his ethyl alcohol level. Plan: IV hydration with normal saline IV pain control Continue NPO (2) Pancreatic pseudocyst Conclusion/Plan: Abdominal CT from 11/02/22 found: - small, subcentimeter liver lesions that are likely cysts - necrosis vs peripancreatic fluid near the tail of the pancreas - inflammation around the stomach, left retroperitoneum, and pancreaticoduodenal groove The radiologist notes overall worsening of his condition. Plan: See acute pancreatitis treatment above (3) Lung consolidation Conclusion/Plan: The CT from today also found pulmonary consolidation. According to Up To Date, up to 20% of patient with acute pancreatitis develop an extrapancreatic infection such as pneumonia. He is afebrile but does have a high white count. His O2 saturation is 97% on room air so he does not need oxygen at this time. He had no respiratory concerns upon admission, however is unable to take deep breaths due to abdominal pain. Plan: IV antibiotics, as recommended by [employer] consisting of azithromycin 500 mg and Rocefin 1g - Lab Results Fish Bones: 11/02/22 00:00 11/02/22 10:16 - Diagnostic Imaging Results Diagnostic Imaging Results: positive: Final report reviewed Core Measures - Anticipated LOS I expect patient to be DC'd or transferred within 96 hours.: Yes - DVT/VTE - Prophylaxis VTE/DVT Prophylaxis med ordered at admit?: Yes - Stroke - Rehab Assessment Rehab services assessment to be ordered?: No Not Ordered - Medical Reason: Not indicated - AMI - Statin at Admit Aspirin Prescribed on Admit: No Not Ordered - Medical Reason: Not indicated
[2022-11-02 12:58] LABS: BILIRUBIN,URINE NEGATIVE (NEGATIVE); GLUCOSE, URINE (UA) NEGATIVE (NEGATIVE); KETONES,URINE (UA) NEGATIVE (NEGATIVE); LEUKOCYTE ESTERASE, URINE NEGATIVE (NEGATIVE); NITRITE,URINE NEGATIVE (NEGATIVE); OCCULT BLOOD,URINE NEGATIVE (NEGATIVE); PROTEIN,URINE NEGATIVE (NEGATIVE); UROBILINOGEN,URINE 0.2 (NORMAL) E.U./dL (NORMAL)
[2022-11-02 12:59] LABS: CLARITY,URINE CLEAR (CLEAR)
[2022-11-02] MEDS ORDERED: iohexoL-300 100 ML VIAL ONE (13:00)
--- NOTE | 2022-11-02 13:56 | CT Report ---
PROCEDURE: ABDOMEN/PELVIS W INDICATIONS: pancreatic pseudocysts and pancreatitis CONTRAST: 100ml Omnipaque 300 TECHNIQUE: After the administration of IV contrast, 5 mm thick sections acquired from the diaphragms to the symp hysis. 5 mm thick coronal and sagittal reformats were acquired. For radiation dose reduction, the f ollowing was used: automated exposure control, adjustment of mA and/or kV according to patient size. COMPARISON: 10/06/2022 FINDINGS: Image quality: Good Lower chest: Bibasilar consolidations and atelectasis. Small bilateral effusions. No hiatal hernia. O verall normal heart size. Solid organs: Small liver lesions are probably cysts. Subcentimeter lesions are too small to characte rize. These are stable. Gallbladder is unremarkable. No pathologic dilation of the biliary tree. Prob able hepatic steatosis. Moderate persistent inflammatory changes surrounding the pancreas, with possible small focus of necro sis versus small peripancreatic fluid collection near the tail. Moderate inflammatory changes extend to the mesenteric root along the left anterior perirenal fascia. Overall findings are slightly increa sed. No splenomegaly. No adrenal nodules. No hydronephrosis. Increased left perinephric fat stranding, pro bably reactive. Vessels and lymph nodes: The main portal vein is patent. There are prominent upper abdominal lymph no tiffany that may be reactive in this clinical context. No abdominal aortic aneurysm. Bowel and peritoneum: Moderate inflammatory changes persist around the stomach. This extends to the p ancreaticoduodenal groove. No evidence of bowel obstruction. A small amount of pelvic free fluid is p resent, also seen previously. Body wall: Small fat-containing umbilical hernia. Pelvis: Bladder is unremarkable. Prostate is unremarkable. Bones: No acute or suspicious osseous finding. There are degenerative changes. IMPRESSION: Slightly increased inflammatory changes related to pancreatitis, with possible small necrotic focus v ersus peripancreatic collection near the tail. Inflammation extends around the stomach, left retroper itoneum, and pancreaticoduodenal groove. Small amount pelvic free fluid is also present. No drainable fluid collection at this time. Previously seen abscess along the left hepatic capsule is no longer p resent. Bibasilar pulmonary consolidations likely aspiration, pneumonia, or atelectasis. Consider future imag ing surveillance to assess for resolution. Other findings as above. Reviewed by: Elliot Jasso MD on 11/02/2022 1:55 PM PDT Approved by: Elliot Jasso MD on 11/02/2022 1:55 PM PDT Station ID: [id number]
[2022-11-02] MEDS ORDERED: iohexoL-300 100 ML VIAL IVP ONE (13:58)
[2022-11-02] MEDS: ENOXAPARIN 40 MG/0.4 ML SYRINGE SUBQ SCH (14:26)
[2022-11-02] MEDS: SODIUM CHLORIDE 0.9% 1,000 ML IV SCH (14:26)
--- NOTE | 2022-11-02 15:06 | PHARMACY PROGRESS NOTE ---
- Best Possible Medication History Admit Date and Time: 11/02/22 1129 Processed by: Pharmacy Medication History completed: Yes Patient Interview: Completed Secondary Source(s): Pharmacy records As the person ultimately responsible for medication therapy, providers are able to order a medication from an existing home medication list in [facility] via the "Reconcile Routine" prior to Confirmation of that medication by operations support specialist. Such practice is discouraged except when the physician, in their clinical judgment, deems that a medical need exists for a medication without regard to previous use.
[2022-11-02] MEDS: SODIUM CHLORIDE FLUSH 0.9% 10 ML SYRINGE IVP SCH ×2 (16:52→19:44)
[2022-11-02] MEDS: cefTRIAXone 1 GM in SODIUM CHLORIDE 0.9% MINIBAG 100 ML IV SCH (19:45)
[2022-11-02] MEDS: AZITHROMYCIN INJ 500 MG in SODIUM CHLORIDE 0.9% 250 ML IV SCH (20:44)
[2022-11-03] MEDS: HYDROmorphone 1 MG/ML CARPUJECT IVP PRN ×9 (00:29→22:12)
[2022-11-03] MEDS: SODIUM CHLORIDE 0.9% 1,000 ML IV SCH ×2 (02:33→14:02)
[2022-11-03] MEDS: KETOROLAC 15 MG/ML VIAL IVP SCH (02:50)
[2022-11-03 05:53] LABS: BASOPHILS # (AUTO) 0.1 10^3/uL (0.0-0.1); BASOPHILS % (AUTO) 0.5 %; EOSINOPHILS # (AUTO) 0.6 10^3/uL (0.0-0.7); EOSINOPHILS % (AUTO) 4.3 %; HCT - HEMATOCRIT 38.7 % (42.0-52.0); HGB - HEMOGLOBIN 12.6 g/dL (14.0-18.0); LYMPHOCYTES # (AUTO) 2.8 10^3/uL (1.5-3.5); LYMPHOCYTES % (AUTO) 21.2 %; MEAN CORPUSCULAR HEMOGLOBIN 31.4 pg (27.0-31.0); MEAN CORPUSCULAR HGB CONC 32.6 g/dL (32.0-36.0); MEAN CORPUSCULAR VOLUME 96.5 fL (80.0-94.0); MEAN PLATELET VOLUME 8.9 fL (7.4-11.4); MONOCYTES # (AUTO) 1.3 10^3/uL (0.0-1.0); NEUTROPHILS # (AUTO) 8.5 10^3/uL (1.5-6.6); NEUTROPHILS % (AUTO) 63.6 %; PLT - PLATELET COUNT 363 10^3/uL (130-450); RED BLOOD COUNT 4.01 10^6/uL (4.70-6.10); RED CELL DISTRIBUTION WIDTH 13.3 % (12.0-15.0); WHITE BLOOD COUNT 13.4 x10^3/uL (4.8-10.8)
[2022-11-03 06:38] LABS: ALBUMIN 2.9 g/dL (3.2-5.5); BILIRUBIN,TOTAL 0.6 mg/dL (0.2-1.0); CREATININE 0.6 mg/dL (0.6-1.2); POTASSIUM 3.2 mmol/L (3.5-5.0); TOTAL PROTEIN 5.7 g/dL (6.7-8.2)
[2022-11-03] MEDS: POTASSIUM CHLORIDE 20 MEQ/15 ML UDC PO SCH (08:29)
[2022-11-03] MEDS: cefTRIAXone 1 GM in SODIUM CHLORIDE 0.9% MINIBAG 100 ML IV SCH (08:30)
[2022-11-03] MEDS: SODIUM CHLORIDE FLUSH 0.9% 10 ML SYRINGE IVP SCH ×3 (08:30→22:13)
[2022-11-03] MEDS: polyethylene glycoL 3350 17 GM PACKET PO SCH (08:30)
[2022-11-03] MEDS: ENOXAPARIN 40 MG/0.4 ML SYRINGE SUBQ SCH (08:30)
[2022-11-03] MEDS: AZITHROMYCIN INJ 500 MG in SODIUM CHLORIDE 0.9% 250 ML IV SCH (09:23)
--- NOTE | 2022-11-03 11:33 | PROVIDER PROGRESS NOTE ---
Subjective - Prog Note Date Prog Note Date: 11/03/22 Prog Note Time: 11:30 - Subjective Pt reports feeling: No change Subjective: Patient still rates his pain 8/10 at rest, but 10/10 with movement. However, he does have reduced pain in his back and right abdomen. He describes the sensation of a "grapefruit" mass in his left abdomen. He also started incentive spirometry and has a goal of 2500 but can only get to 1000 before running out of air/pain. He is worried about his overall health, weight loss of 20 pounds over the last few months, and pain control. He also requests a nicotine patch. He usually smokes 10-15 cigarettes daily. Objective - Vital Signs/Intake & Output Reviewed Vital Signs: Yes Vital Signs: Vital Signs x48h Temp Pulse Resp BP Pulse Ox 11/03/22 07:54 36.9 C 87 14 123/84 H 92 Intake & Output: Intake & Output 10/31/22 11/01/22 11/02/22 11/03/22 23:59 23:59 23:59 23:59 Intake Total 4470 1100 Output Total 275 Balance 4195 1100 - Objective General Appearance: positive: No acute distress Eyes Bilateral: positive: Normal inspection, No scleral icterus ENT: positive: No signs of dehydration Neck: positive: No JVD, Trachea midline. negative: Lymphadenopathy (R), Lymphadenopathy (L) Respiratory: positive: No respiratory distress, Breath sounds nml, Other (Limited lung exam due to abdominal pain preventing deep breaths) Cardiovascular: positive: Regular rate & rhythm Abdomen: positive: Tenderness Skin: positive: No rash, Warm, Dry. negative: Diaphoresis Extremities: positive: No pedal edema Neurologic/Psychiatric: positive: Oriented x3, Mood/affect nml - Lab Results Fish Bones: 11/03/22 05:43 11/03/22 05:43 Other Labs: Lab Results x24hrs 11/03/22 11/03/22 11/02/22 Range/Units 05:43 05:43 12:29 WBC 13.4 H (4.8-10.8) x10^3/uL RBC 4.01 L (4.70-6.10) 10^6/uL Hgb 12.6 L (14.0-18.0) g/dL Hct 38.7 L (42.0-52.0) % MCV 96.5 H (80.0-94.0) fL MCH 31.4 H (27.0-31.0) pg MCHC 32.6 (32.0-36.0) g/dL RDW 13.3 (12.0-15.0) % Plt Count 363 (130-450) 10^3/uL MPV 8.9 (7.4-11.4) fL Neut # (Auto) 8.5 H (1.5-6.6) 10^3/uL Lymph # (Auto) 2.8 (1.5-3.5) 10^3/uL Kings # (Auto) 1.3 H (0.0-1.0) 10^3/uL Eos # (Auto) 0.6 (0.0-0.7) 10^3/uL Baso # (Auto) 0.1 (0.0-0.1) 10^3/uL Absolute Nucleated RBC 0.00 x10^3/uL Nucleated RBC % 0.0 /100WBC Sodium 135 (135-145) mmol/L Potassium 3.2 L (3.5-5.0) mmol/L Chloride 104 (101-111) mmol/L Carbon Dioxide 23 (21-32) mmol/L Anion Gap 8.0 (6-13) BUN 5 L (6-20) mg/dL Creatinine 0.6 (0.6-1.2) mg/dL Estimated GFR (MDRD) 145 (>89) Glucose 89 (70-100) mg/dL Calcium 8.0 L (8.5-10.3) mg/dL Total Bilirubin 0.6 (0.2-1.0) mg/dL AST 16 (10-42) IU/L ALT 13 (10-60) IU/L Alkaline Phosphatase 51 (42-121) IU/L Total Protein 5.7 L (6.7-8.2) g/dL Albumin 2.9 L (3.2-5.5) g/dL Globulin 2.8 (2.1-4.2) g/dL Albumin/Globulin Ratio 1.0 (1.0-2.2) Lipase 286 H (22-51) U/L Urine Color YELLOW Urine Clarity CLEAR (CLEAR) Urine pH 6.0 (5.0-7.5) PH Ur Specific [place] >=1.030 H (1.002-1.030) Urine Protein NEGATIVE (NEGATIVE) mg/dL Urine Glucose (UA) NEGATIVE (NEGATIVE) mg/dL Urine Ketones NEGATIVE (NEGATIVE) mg/dL Urine Occult Blood NEGATIVE (NEGATIVE) Urine Nitrite NEGATIVE (NEGATIVE) Urine Bilirubin NEGATIVE (NEGATIVE) Urine Urobilinogen 0.2 (NORMAL) (NORMAL) E.U./dL Ur Leukocyte Esterase NEGATIVE (NEGATIVE) Ur Microscopic Review NOT INDICATED Urine Culture Comments NOT INDICATED ABX Reporting Has patient been on IV antibiotics over the past 48 hours?: Yes Sepsis Event Note (H) - Evaluation Current Stage of Sepsis: Ruled out - Sepsis Criteria Sepsis Criteria: WBC count greater than 12,000 or less than 4000 Assessment/Plan - Problem List (1) Acute pancreatitis Impression: (1) Acute pancreatitis Conclusion/Plan: CT from 11/02 shows pancreatitis and necrosis vs peripancreatic fluid collection near pancreatic tail. Since he has no gallbladder findings on CT, I have ruled out gallstone pancreatitis. His symptoms are likely from alcoholic pancreatitis due to his history of alcohol abuse and previous diagnoses of alcoholic pancreatitis, most recently in September 2022. His lipase has significantly decreased from 1668 to 286 today. He still has 8 out of 10 abdominal pain and r equires Dilaudid 2 mg every 2 hours. After discussion about his pancreatic CT findings, he expressed worry for his health and reported again that he is completely disinterested in consuming alcohol in the future. Plan: Continue IV hydration with normal saline Continue IV pain control with Dilaudid 2mg q2h. He still requires this every 2 hours and I discussed with him that he cannot eat until his pain level reduces. Continue NPO until pain is better controlled. Discussed this with patient, as he is hungry and is wondering when he can eat. (2) Pancreatic pseudocyst Conclusion/Plan: Abdominal CT from 11/02/22 found: - small, subcentimeter liver lesions that are likely cysts - necrosis vs peripancreatic fluid near the tail of the pancreas - inflammation around the stomach, left retroperitoneum, and pancreaticoduodenal groove The radiologist notes overall worsening of his condition. I discussed these findings with patient today and he expressed understanding. Plan: See acute pancreatitis treatment above (3) Lung consolidation Conclusion/Plan: The CT from 11/02 also found pulmonary consolidation. I discussed the lung finding with the patient today and he expressed understanding. According to Up To Date, up to 20% of patient with acute pancreatitis develop an extrapancreatic infection such as pneumonia. He is afebrile but does have a high white count. His WBC count is improving and has decreased from 14.7 to 13.4 today. He was unable to sleep last night in a flat position but found some relief after raising the head of the bed. His O2 saturation reduced from 97% yesterday to 92% on room air this morning. He had no respiratory concerns upon admission, however is still unable to take deep breaths due to abdominal pain. He started incentive spirometry with RT. Plan: IV antibiotics, as recommended by [employer]ptoDate consisting of azithromycin 500 mg and Rocefin 1g Continue incentive spirometry Continue to monitor O2 saturation (4) Tobacco use Impression: Patient reports smoking 10-15 cigarettes daily. Today, he requested a nicotine patch. Plan: Start nicotine patch 7 mg daily
[2022-11-03] MEDS: NICOTINE 7 MG PATCH TOP SCH (14:00)
[2022-11-04] MEDS: HYDROmorphone 1 MG/ML CARPUJECT IVP PRN ×7 (00:33→23:57)
[2022-11-04] MEDS: SODIUM CHLORIDE 0.9% 1,000 ML IV SCH ×2 (00:33→13:19)
[2022-11-04] MEDS: KETOROLAC 15 MG/ML VIAL IVP SCH (01:04)
[2022-11-04] MEDS: POTASSIUM CHLORIDE 20 MEQ/15 ML UDC PO SCH (08:47)
[2022-11-04] MEDS: cefTRIAXone 1 GM in SODIUM CHLORIDE 0.9% MINIBAG 100 ML IV SCH (08:47)
[2022-11-04] MEDS: ENOXAPARIN 40 MG/0.4 ML SYRINGE SUBQ SCH (08:47)
[2022-11-04] MEDS: NICOTINE 7 MG PATCH TOP SCH (08:48)
[2022-11-04] MEDS: polyethylene glycoL 3350 17 GM PACKET PO SCH (08:48)
[2022-11-04] MEDS: SODIUM CHLORIDE FLUSH 0.9% 10 ML SYRINGE IVP SCH ×2 (08:48→16:06)
[2022-11-04] MEDS: AZITHROMYCIN INJ 500 MG in SODIUM CHLORIDE 0.9% 250 ML IV SCH (09:32)
[2022-11-04 10:21] LABS: BASOPHILS # (AUTO) 0.1 10^3/uL (0.0-0.1); BASOPHILS % (AUTO) 0.5 %; EOSINOPHILS # (AUTO) 0.7 10^3/uL (0.0-0.7); EOSINOPHILS % (AUTO) 6.4 %; HCT - HEMATOCRIT 36.9 % (42.0-52.0); HGB - HEMOGLOBIN 12.5 g/dL (14.0-18.0); LYMPHOCYTES # (AUTO) 2.7 10^3/uL (1.5-3.5); MEAN CORPUSCULAR HGB CONC 33.9 g/dL (32.0-36.0); MEAN CORPUSCULAR VOLUME 94.4 fL (80.0-94.0); MEAN PLATELET VOLUME 8.9 fL (7.4-11.4); MONOCYTES % (AUTO) 8.3 %; NEUTROPHILS # (AUTO) 7.1 10^3/uL (1.5-6.6); NEUTROPHILS % (AUTO) 61.4 %; PLT - PLATELET COUNT 350 10^3/uL (130-450); RED BLOOD COUNT 3.91 10^6/uL (4.70-6.10); WHITE BLOOD COUNT 11.5 x10^3/uL (4.8-10.8)
[2022-11-04 10:33] LABS: ALBUMIN 2.9 g/dL (3.2-5.5); ALBUMIN/GLOBULIN RATIO 0.9 (1.0-2.2); ALKALINE PHOSPHATASE 53 IU/L (42-121); ALT ALANINE AMINOTRANSFERASE 15 IU/L (10-60); AST ASPARTATE AMINOTRANSFERASE 18 IU/L (10-42); BILIRUBIN,TOTAL 0.5 mg/dL (0.2-1.0); BUN - BLOOD UREA NITROGEN < 5 mg/dL (6-20); CALCIUM 8.5 mg/dL (8.5-10.3); CARBON DIOXIDE - CO2 22 mmol/L (21-32); CHLORIDE 106 mmol/L (101-111); CREATININE 0.5 mg/dL (0.6-1.2); GFR - MDRD 179 (>89); GLUCOSE 104 mg/dL (70-100); LIPASE 38 U/L (22-51); SODIUM 137 mmol/L (135-145); TOTAL PROTEIN 6.1 g/dL (6.7-8.2)
[2022-11-04] MEDS ORDERED: HYDROmorphone 1 MG/ML CARPUJECT IVP PRN (10:37)
[2022-11-04] MEDS: oxyCODONE 5 MG TABLET PO PRN ×2 (16:05→20:08)
--- NOTE | 2022-11-04 17:51 | PROVIDER PROGRESS NOTE ---
Assessment/Plan - Problem List (1) Acute alcoholic pancreatitis Qualifiers: Acute pancreatitis complication: unspecified Qualified Code(s): K85.20 - Alcohol induced acute pancreatitis without necrosis or infection Assessment/Plan: Slow improvement in pain Continuing IV fluids We will space out Dilaudid from every 2 hours to every 4 hours and add IV oxycodone in the meantime to help wean patient off of IV pain medications Patient feels ready to try clear liquid diet Continue monitoring and supportive care, advance diet tomorrow if able to tole rate clear liquids Given history of pancreatic pseudocyst and recurrent pancreatitis, patient's progress may be somewhat slower to avoid further complications (2) Atypical pneumonia Assessment/Plan: Saturating well on room air normal lung exam without respiratory symptoms Continue azithromycin and Rocephin - Current Meds Current Meds: Current Medications Generic Name Dose Route Start Last Admin Trade Name Freq PRN Reason Stop Dose Admin Enoxaparin Sodium 40 mg 11/02/22 12:00 11/04/22 08:47 Enoxaparin 40 Mg/0.4 Ml Syringe SUBQ 40 mg DAILY BENNIE Administration Hydromorphone HCl 2 mg 11/04/22 13:52 11/04/22 17:43 Hydromorphone 1 Mg/Ml Carpuject IVP 2 mg Q4HR PRN Administration Severe Pain (Level 7-10) Sodium Chloride 1,000 mls @ 100 mls/hr 11/02/22 12:00 11/04/22 13:19 Normal Saline 0.9% IV 100 mls/hr .Q10H BENNIE Administration Ceftriaxone Sodium 1 gm/ 100 mls @ 200 mls/hr 11/02/22 18:45 11/04/22 09:32 Sodium Chloride IV 11/06/22 09:29 Infused DAILY BENNIE Infusion Nicotine 1 patch 11/03/22 13:00 11/04/22 08:48 Nicotine 7 Mg Patch TOP 1 patch DAILY BENNIE Administration Oxycodone HCl 15 mg 11/04/22 13:52 11/04/22 16:05 Oxycodone 5 Mg Tablet PO 15 mg Q4HR PRN Administration Moderate Pain (Level 4-6) Polyethylene Glycol 17 gm 11/03/22 09:00 11/04/22 08:48 Polyethylene Glycol 3350 17 Gm Packet PO 17 gm DAILY BENNIE Administration Potassium Chloride 40 meq 11/03/22 08:00 11/04/22 08:47 Potassium Chloride 20 Meq/15 Ml Udc PO 40 meq DAILYWM BENNIE Administration Sodium Chloride 10 ml 11/02/22 17:00 11/04/22 16:06 Sodium Chloride Flush 0.9% 10 Ml Syringe IVP Not Given 0100,0900,1700 BENNIE - Lab Result Lab results reviewed: Yes Fish Bone Diagrams: 11/04/22 10:16 11/04/22 10:16 - Diagnostic Imaging Results Diagnostic Imaging Results: Final report reviewed - Additional Planning My Orders: My Active Orders 11/04/22 13:52 HYDROmorphone 1MG CARP [Dilaudid 1Mg Carp] 2 mg IVP Q4HR PRN oxyCODONE [Roxicodone] 15 mg PO Q4HR PRN 11/04/22 Dinner Clear Liquid Diet [DIET] Subjective - Subjective Patient Reports: Feeling Better Objective Vital Signs: Vital Signs - 24 hr 11/03/22 11/04/22 11/04/22 23:52 08:00 16:00 Temperature 36.9 C 36.9 C 36.9 C Heart Rate [ 91 90 83 Brachial] Respiratory 18 14 16 Rate Blood Pressure 141/90 H 147/95 H 152/93 H [Right Brachial artery] O2 Saturation 96 97 97 Oxygen O2 Source Room air I&O (Last 24 Hrs): Intake and Output Totals x24h 11/02/22 11/03/22 11/04/22 23:59 23:59 23:59 Intake Total 4470 2470 2510 Output Total 275 Balance 4195 2470 2510 General: Alert, Oriented x3, Cooperative HEENT: Atraumatic Neuro: Alert, Non Focal Cardiovascular: Regular rate, Normal S1, Normal S2 Respiratory: Chest non-tender Abdomen: Normal bowel sounds, No masses, Other (Left upper quadrant tenderness) Extremities: No clubbing, No cyanosis, No edema, Normal pulses Skin: No rashes, No breakdown - Results Results: Laboratory Results WBC 11.5 x10^3/uL (4.8-10.8) H 11/04/22 10:16 RBC 3.91 10^6/uL (4.70-6.10) L 11/04/22 10:16 Hgb 12.5 g/dL (14.0-18.0) L 11/04/22 10:16 Hct 36.9 % (42.0-52.0) L 11/04/22 10:16 MCV 94.4 fL (80.0-94.0) H 11/04/22 10:16 MCH 32.0 pg (27.0-31.0) H 11/04/22 10:16 MCHC 33.9 g/dL (32.0-36.0) 11/04/22 10:16 RDW 13.0 % (12.0-15.0) 11/04/22 10:16 Plt Count 350 10^3/uL (130-450) 11/04/22 10:16 MPV 8.9 fL (7.4-11.4) 11/04/22 10:16 Neut # (Auto) 7.1 10^3/uL (1.5-6.6) H 11/04/22 10:16 Lymph # (Auto) 2.7 10^3/uL (1.5-3.5) 11/04/22 10:16 [place] # (Auto) 1.0 10^3/uL (0.0-1.0) 11/04/22 10:16 Eos # (Auto) 0.7 10^3/uL (0.0-0.7) 11/04/22 10:16 Baso # (Auto) 0.1 10^3/uL (0.0-0.1) 11/04/22 10:16 Absolute Nucleated RBC 0.00 x10^3/uL 11/04/22 10:16 Nucleated RBC % 0.0 /100WBC 11/04/22 10:16 Sodium 137 mmol/L (135-145) 11/04/22 10:16 Potassium 4.0 mmol/L (3.5-5.0) 11/04/22 10:16 Chloride 106 mmol/L (101-111) 11/04/22 10:16 Carbon Dioxide 22 mmol/L (21-32) 11/04/22 10:16 Anion Gap 9.0 (6-13) 11/04/22 10:16 BUN < 5 mg/dL (6-20) L 11/04/22 10:16 Creatinine 0.5 mg/dL (0.6-1.2) L 11/04/22 10:16 Estimated GFR (MDRD) 179 (>89) 11/04/22 10:16 Glucose 104 mg/dL (70-100) H 11/04/22 10:16 Calcium 8.5 mg/dL (8.5-10.3) 11/04/22 10:16 Total Bilirubin 0.5 mg/dL (0.2-1.0) 11/04/22 10:16 AST 18 IU/L (10-42) 11/04/22 10:16 ALT 15 IU/L (10-60) 11/04/22 10:16 Alkaline Phosphatase 53 IU/L (42-121) 11/04/22 10:16 Total Protein 6.1 g/dL (6.7-8.2) L 11/04/22 10:16 Albumin 2.9 g/dL (3.2-5.5) L 11/04/22 10:16 Globulin 3.2 g/dL (2.1-4.2) 11/04/22 10:16 Albumin/Globulin Ratio 0.9 (1.0-2.2) L 11/04/22 10:16 Lipase 38 U/L (22-51) 11/04/22 10:16 Urine Color YELLOW 11/02/22 12:29 Urine Clarity CLEAR (CLEAR) 11/02/22 12:29 Urine pH 6.0 PH (5.0-7.5) 11/02/22 12:29 Ur Specific [place] >=1.030 (1.002-1.030) H 11/02/22 12:29 Urine Protein NEGATIVE mg/dL (NEGATIVE) 11/02/22 12:29 Urine Glucose (UA) NEGATIVE mg/dL (NEGATIVE) 11/02/22 12:29 Urine Ketones NEGATIVE mg/dL (NEGATIVE) 11/02/22 12:29 Urine Occult Blood NEGATIVE (NEGATIVE) 11/02/22 12:29 Urine Nitrite NEGATIVE (NEGATIVE) 11/02/22 12:29 Urine Bilirubin NEGATIVE (NEGATIVE) 11/02/22 12:29 Urine Urobilinogen 0.2 (NORMAL) E.U./dL (NORMAL) 11/02/22 12:29 Ur Leukocyte Esterase NEGATIVE (NEGATIVE) 11/02/22 12:29 Ur Microscopic Review NOT INDICATED 11/02/22 12:29 Urine Culture Comments NOT INDICATED 11/02/22 12:29 Sepsis Event Note (H) - Evaluation Current Stage of Sepsis: Ruled out - Sepsis Criteria Sepsis Criteria: WBC count greater than 12,000 or less than 4000 ABX Reporting Has patient been on IV antibiotics over the past 48 hours?: No Current Medications - Current Medications Current Medications: Active Medications Generic Name Dose Route Start Last Admin Trade Name Freq PRN Reason Stop Dose Admin Acetaminophen 650 mg 11/02/22 11:29 Acetaminophen 325 Mg Tablet PO Q4HR PRN Pain 1 to 4, or Fever Enoxaparin Sodium 40 mg 11/02/22 12:00 11/04/22 08:47 Enoxaparin 40 Mg/0.4 Ml Syringe SUBQ 40 mg DAILY BENNIE Administration Hydromorphone HCl 2 mg 11/04/22 13:52 11/04/22 17:43 Hydromorphone 1 Mg/Ml Carpuject IVP 2 mg Q4HR PRN Administration Severe Pain (Level 7-10) Sodium Chloride 1,000 mls @ 100 mls/hr 11/02/22 12:00 11/04/22 13:19 Normal Saline 0.9% IV 100 mls/hr .Q10H BENNIE Administration Ceftriaxone Sodium 1 gm/ 100 mls @ 200 mls/hr 11/02/22 18:45 11/04/22 09:32 Sodium Chloride IV 11/06/22 09:29 Infused DAILY BENNIE Infusion Nicotine 1 patch 11/03/22 13:00 11/04/22 08:48 Nicotine 7 Mg Patch TOP 1 patch DAILY BENNIE Administration Ondansetron HCl 4 mg 11/02/22 11:29 Ondansetron Odt 4 Mg Tablet TL Q6HR PRN Nausea / Vomiting Ondansetron HCl 4 mg 11/02/22 11:29 Ondansetron 4 Mg/2 Ml Vial IVP Q6HR PRN Nausea / Vomiting Oxycodone HCl 15 mg 11/04/22 13:52 11/04/22 16:05 Oxycodone 5 Mg Tablet PO 15 mg Q4HR PRN Administration Moderate Pain (Level 4-6) Polyethylene Glycol 17 gm 11/03/22 09:00 11/04/22 08:48 Polyethylene Glycol 3350 17 Gm Packet PO 17 gm DAILY BENNIE Administration Potassium Chloride 40 meq 11/03/22 08:00 11/04/22 08:47 Potassium Chloride 20 Meq/15 Ml Udc PO 40 meq DAILYWM BENNIE Administration Prochlorperazine Edisylate 10 mg 11/02/22 11:29 Prochlorperazine 10 Mg/2 Ml Vial IVP Q6HR PRN Nausea / Vomiting Sodium Chloride 10 ml 11/02/22 11:29 Sodium Chloride Flush 0.9% 10 Ml Syringe IVP PRN PRN NEEDED PER PROVIDER ORDERS Sodium Chloride 10 ml 11/02/22 17:00 11/04/22 16:06 Sodium Chloride Flush 0.9% 10 Ml Syringe IVP Not Given 0100,0900,1700 [facility] Gabapentin [Neurontin] 300 mg PO BID 10/17/21 Propranolol HCl 20 mg PO BID PRN 10/17/21 Dicyclomine [Bentyl] 10 mg PO TID PRN 02/23/22 Hydromorphone HCl 1 - 2 tab PO Q8HR PRN 11/02/22 Senna [Senokot] 2 tab PO QPM 11/02/22
[2022-11-05] MEDS: SODIUM CHLORIDE FLUSH 0.9% 10 ML SYRINGE IVP SCH ×3 (00:46→17:12)
[2022-11-05] MEDS: SODIUM CHLORIDE 0.9% 1,000 ML IV SCH ×4 (00:58→22:25)
[2022-11-05] MEDS: oxyCODONE 5 MG TABLET PO PRN ×5 (01:52→20:22)
[2022-11-05] MEDS ORDERED: PROPRANOLOL 10 MG TABLET PO PRN (03:46)
[2022-11-05] MEDS: HYDROmorphone 1 MG/ML CARPUJECT IVP PRN ×5 (04:21→22:20)
[2022-11-05 06:19] LABS: BASOPHILS # (AUTO) 0.1 10^3/uL (0.0-0.1); BASOPHILS % (AUTO) 0.7 %; EOSINOPHILS # (AUTO) 0.7 10^3/uL (0.0-0.7); EOSINOPHILS % (AUTO) 7.9 %; HCT - HEMATOCRIT 40.4 % (42.0-52.0); HGB - HEMOGLOBIN 13.3 g/dL (14.0-18.0); LYMPHOCYTES # (AUTO) 2.8 10^3/uL (1.5-3.5); MEAN CORPUSCULAR HGB CONC 32.9 g/dL (32.0-36.0); MEAN CORPUSCULAR VOLUME 94.2 fL (80.0-94.0); MEAN PLATELET VOLUME 9.1 fL (7.4-11.4); MONOCYTES # (AUTO) 0.8 10^3/uL (0.0-1.0); MONOCYTES % (AUTO) 9.1 %; NEUTROPHILS # (AUTO) 4.5 10^3/uL (1.5-6.6); NEUTROPHILS % (AUTO) 51.1 %; PLT - PLATELET COUNT 380 10^3/uL (130-450); RED BLOOD COUNT 4.29 10^6/uL (4.70-6.10); RED CELL DISTRIBUTION WIDTH 13.1 % (12.0-15.0); WHITE BLOOD COUNT 8.9 x10^3/uL (4.8-10.8)
[2022-11-05 06:33] LABS: ALBUMIN 3.1 g/dL (3.2-5.5); ALBUMIN/GLOBULIN RATIO 0.9 (1.0-2.2); ALKALINE PHOSPHATASE 55 IU/L (42-121); ALT ALANINE AMINOTRANSFERASE 15 IU/L (10-60); AST ASPARTATE AMINOTRANSFERASE 18 IU/L (10-42); BILIRUBIN,TOTAL 0.3 mg/dL (0.2-1.0); BUN - BLOOD UREA NITROGEN < 5 mg/dL (6-20); CALCIUM 9.1 mg/dL (8.5-10.3); CARBON DIOXIDE - CO2 27 mmol/L (21-32); CHLORIDE 104 mmol/L (101-111); CREATININE 0.5 mg/dL (0.6-1.2); GFR - MDRD 179 (>89); GLUCOSE 111 mg/dL (70-100); LIPASE 28 U/L (22-51); POTASSIUM 3.4 mmol/L (3.5-5.0); SODIUM 141 mmol/L (135-145); TOTAL PROTEIN 6.4 g/dL (6.7-8.2)
[2022-11-05] MEDS ORDERED: BENZOCAINE/MENTHOL LOZENGE MM PRN (07:02)
[2022-11-05] MEDS: NICOTINE 7 MG PATCH TOP SCH (08:52)
[2022-11-05] MEDS: POTASSIUM CHLORIDE 20 MEQ/15 ML UDC PO SCH (08:52)
[2022-11-05] MEDS: amLODIPine 5 MG TABLET PO SCH (08:52)
[2022-11-05] MEDS: cefTRIAXone 1 GM in SODIUM CHLORIDE 0.9% MINIBAG 100 ML IV SCH (08:53)
[2022-11-05] MEDS: ENOXAPARIN 40 MG/0.4 ML SYRINGE SUBQ SCH (08:53)
[2022-11-05] MEDS: polyethylene glycoL 3350 17 GM PACKET PO SCH (09:44)
[2022-11-05] MEDS: LIPASE/PROTEASE/AMYLASE CAPSULE PO SCH ×2 (12:13→17:12)
--- NOTE | 2022-11-05 17:56 | PROVIDER PROGRESS NOTE ---
Assessment/Plan - Problem List (1) Acute alcoholic pancreatitis Qualifiers: Acute pancreatitis complication: unspecified Qualified Code(s): K85.20 - Alcohol induced acute pancreatitis without necrosis or infection Assessment/Plan: Slowly improving. Able to space out IV Dilaudid much more today Able to tolerate a full liquid diet Discussed with patient plan to try to avoid IV pain medications after sleep tonight with hopes of discharging home as early as tomorrow if he is able to tolerate p.o. meds only (2) Atypical pneumonia Assessment/Plan: Saturating well on room air normal lung exam without respiratory symptoms Continue azithromycin and Rocephin - Current Meds Current Meds: Current Medications Generic Name Dose Route Start Last Admin Trade Name Freq PRN Reason Stop Dose Admin Amlodipine Besylate 5 mg 11/05/22 09:00 11/05/22 08:52 Amlodipine 5 Mg Tablet PO 5 mg DAILY BENNIE Administration Lipase/Protease/Amylase 3 cap 11/05/22 12:00 11/05/22 17:12 Lipase/Protease/Amylase Capsule PO 3 cap TIDWM BENNIE Administration Enoxaparin Sodium 40 mg 11/02/22 12:00 11/05/22 08:53 Enoxaparin 40 Mg/0.4 Ml Syringe SUBQ 40 mg DAILY BENNIE Administration Hydromorphone HCl 2 mg 11/04/22 13:52 11/05/22 13:35 Hydromorphone 1 Mg/Ml Carpuject IVP 2 mg Q4HR PRN Administration Severe Pain (Level 7-10) Sodium Chloride 1,000 mls @ 100 mls/hr 11/02/22 12:00 11/05/22 14:16 Normal Saline 0.9% IV 100 mls/hr .Q10H BENNIE Infusion Ceftriaxone Sodium 1 gm/ 100 mls @ 200 mls/hr 11/02/22 18:45 11/05/22 09:25 Sodium Chloride IV 11/06/22 09:29 Infused DAILY BENNIE Infusion Nicotine 1 patch 11/03/22 13:00 11/05/22 08:52 Nicotine 7 Mg Patch TOP 1 patch DAILY BENNIE Administration Oxycodone HCl 15 mg 11/04/22 13:52 11/05/22 15:56 Oxycodone 5 Mg Tablet PO 15 mg Q4HR PRN Administration Moderate Pain (Level 4-6) Polyethylene Glycol 17 gm 11/03/22 09:00 11/05/22 09:44 Polyethylene Glycol 3350 17 Gm Packet PO Not Given DAILY BENNIE Potassium Chloride 40 meq 11/03/22 08:00 11/05/22 08:52 Potassium Chloride 20 Meq/15 Ml Udc PO 40 meq DAILYWM BENNIE Administration Propranolol HCl 20 mg 11/05/22 03:46 11/05/22 06:34 Propranolol 10 Mg Tablet PO 20 mg BID PRN Administration anxiety Sodium Chloride 10 ml 11/02/22 11:29 11/05/22 13:35 Sodium Chloride Flush 0.9% 10 Ml Syringe IVP 10 ml PRN PRN Administration NEEDED PER PROVIDER ORDERS Sodium Chloride 10 ml 11/02/22 17:00 11/05/22 17:12 Sodium Chloride Flush 0.9% 10 Ml Syringe IVP Not Given 0100,0900,1700 BENNIE - Lab Result Fish Bone Diagrams: 11/05/22 06:07 11/05/22 06:07 - Additional Planning My Orders: My Active Orders 11/05/22 Lunch Full Liquid Diet [DIET] 11/05/22 12:00 Lipase/Protease/Amylase [Pancrelipase Dr 5,000/17,000/24,000 [facility]] 3 cap PO TIDWM Subjective - Subjective Patient Reports: Feeling Better, Resting Comfortably, Abdominal Pain Objective Vital Signs: Vital Signs - 24 hr 11/05/22 11/05/22 11/05/22 01:00 08:00 16:00 Temperature 36.9 C 36.5 C 36.8 C Heart Rate [ 82 70 76 Brachial] Respiratory 16 16 18 Rate Blood Pressure 157/107 H 124/80 151/98 H [Right Brachial artery] O2 Saturation 99 97 97 Oxygen O2 Source Room air I&O (Last 24 Hrs): Intake and Output Totals x24h 11/03/22 11/04/22 11/05/22 23:59 23:59 23:59 Intake Total 2470 4407.667 8678.333 Balance 2470 4473.667 3398.333 General: Alert, Oriented x3 Cardiovascular: Regular rate, Normal S1, Normal S2 Respiratory: Chest non-tender, No respiratory distress, Breath sounds nml Abdomen: Soft Extremities: No edema - Results Results: Laboratory Results WBC 8.9 x10^3/uL (4.8-10.8) 11/05/22 06:07 RBC 4.29 10^6/uL (4.70-6.10) L 11/05/22 06:07 Hgb 13.3 g/dL (14.0-18.0) L 11/05/22 06:07 Hct 40.4 % (42.0-52.0) L 11/05/22 06:07 MCV 94.2 fL (80.0-94.0) H 11/05/22 06:07 MCH 31.0 pg (27.0-31.0) 11/05/22 06:07 MCHC 32.9 g/dL (32.0-36.0) 11/05/22 06:07 RDW 13.1 % (12.0-15.0) 11/05/22 06:07 Plt Count 380 10^3/uL (130-450) 11/05/22 06:07 MPV 9.1 fL (7.4-11.4) 11/05/22 06:07 Neut # (Auto) 4.5 10^3/uL (1.5-6.6) 11/05/22 06:07 Lymph # (Auto) 2.8 10^3/uL (1.5-3.5) 11/05/22 06:07 [place] # (Auto) 0.8 10^3/uL (0.0-1.0) 11/05/22 06:07 Eos # (Auto) 0.7 10^3/uL (0.0-0.7) 11/05/22 06:07 Baso # (Auto) 0.1 10^3/uL (0.0-0.1) 11/05/22 06:07 Absolute Nucleated RBC 0.00 x10^3/uL 11/05/22 06:07 Nucleated RBC % 0.0 /100WBC 11/05/22 06:07 Sodium 141 mmol/L (135-145) 11/05/22 06:07 Potassium 3.4 mmol/L (3.5-5.0) L 11/05/22 06:07 Chloride 104 mmol/L (101-111) 11/05/22 06:07 Carbon Dioxide 27 mmol/L (21-32) 11/05/22 06:07 Anion Gap 10.0 (6-13) 11/05/22 06:07 BUN < 5 mg/dL (6-20) L 11/05/22 06:07 Creatinine 0.5 mg/dL (0.6-1.2) L 11/05/22 06:07 Estimated GFR (MDRD) 179 (>89) 11/05/22 06:07 Glucose 111 mg/dL (70-100) H 11/05/22 06:07 Calcium 9.1 mg/dL (8.5-10.3) 11/05/22 06:07 Total Bilirubin 0.3 mg/dL (0.2-1.0) 11/05/22 06:07 AST 18 IU/L (10-42) 11/05/22 06:07 ALT 15 IU/L (10-60) 11/05/22 06:07 Alkaline Phosphatase 55 IU/L (42-121) 11/05/22 06:07 Total Protein 6.4 g/dL (6.7-8.2) L 11/05/22 06:07 Albumin 3.1 g/dL (3.2-5.5) L 11/05/22 06:07 Globulin 3.3 g/dL (2.1-4.2) 11/05/22 06:07 Albumin/Globulin Ratio 0.9 (1.0-2.2) L 11/05/22 06:07 Lipase 28 U/L (22-51) 11/05/22 06:07 Urine Color YELLOW 11/02/22 12:29 Urine Clarity CLEAR (CLEAR) 11/02/22 12:29 Urine pH 6.0 PH (5.0-7.5) 11/02/22 12:29 Ur Specific [place] >=1.030 (1.002-1.030) H 11/02/22 12:29 Urine Protein NEGATIVE mg/dL (NEGATIVE) 11/02/22 12:29 Urine Glucose (UA) NEGATIVE mg/dL (NEGATIVE) 11/02/22 12:29 Urine Ketones NEGATIVE mg/dL (NEGATIVE) 11/02/22 12:29 Urine Occult Blood NEGATIVE (NEGATIVE) 11/02/22 12:29 Urine Nitrite NEGATIVE (NEGATIVE) 11/02/22 12:29 Urine Bilirubin NEGATIVE (NEGATIVE) 11/02/22 12:29 Urine Urobilinogen 0.2 (NORMAL) E.U./dL (NORMAL) 11/02/22 12:29 Ur Leukocyte Esterase NEGATIVE (NEGATIVE) 11/02/22 12:29 Ur Microscopic Review NOT INDICATED 11/02/22 12:29 Urine Culture Comments NOT INDICATED 11/02/22 12:29 Sepsis Event Note (H) - Evaluation Current Stage of Sepsis: Ruled out - Sepsis Criteria Sepsis Criteria: WBC count greater than 12,000 or less than 4000 ABX Reporting Has patient been on IV antibiotics over the past 48 hours?: No
[2022-11-06] MEDS: SODIUM CHLORIDE FLUSH 0.9% 10 ML SYRINGE IVP SCH ×2 (00:17→08:06)
[2022-11-06] MEDS: oxyCODONE 5 MG TABLET PO PRN ×3 (00:50→12:26)
[2022-11-06 05:31] LABS: BASOPHILS # (AUTO) 0.1 10^3/uL (0.0-0.1); BASOPHILS % (AUTO) 0.5 %; EOSINOPHILS # (AUTO) 0.7 10^3/uL (0.0-0.7); EOSINOPHILS % (AUTO) 5.9 %; LYMPHOCYTES # (AUTO) 3.1 10^3/uL (1.5-3.5); LYMPHOCYTES % (AUTO) 26.8 %; MEAN CORPUSCULAR HEMOGLOBIN 31.1 pg (27.0-31.0); MEAN CORPUSCULAR HGB CONC 33.3 g/dL (32.0-36.0); MEAN CORPUSCULAR VOLUME 93.3 fL (80.0-94.0); MEAN PLATELET VOLUME 9.2 fL (7.4-11.4); MONOCYTES # (AUTO) 0.8 10^3/uL (0.0-1.0); MONOCYTES % (AUTO) 6.6 %; NEUTROPHILS # (AUTO) 6.8 10^3/uL (1.5-6.6); NEUTROPHILS % (AUTO) 59.8 %; PLT - PLATELET COUNT 443 10^3/uL (130-450); RED BLOOD COUNT 4.18 10^6/uL (4.70-6.10); RED CELL DISTRIBUTION WIDTH 12.7 % (12.0-15.0); WHITE BLOOD COUNT 11.4 x10^3/uL (4.8-10.8)
[2022-11-06 06:07] LABS: ALBUMIN 3.3 g/dL (3.2-5.5); ALKALINE PHOSPHATASE 56 IU/L (42-121); ALT ALANINE AMINOTRANSFERASE 13 IU/L (10-60); AST ASPARTATE AMINOTRANSFERASE 18 IU/L (10-42); BILIRUBIN,TOTAL 0.5 mg/dL (0.2-1.0); BUN - BLOOD UREA NITROGEN < 5 mg/dL (6-20); CALCIUM 9.5 mg/dL (8.5-10.3); CARBON DIOXIDE - CO2 27 mmol/L (21-32); CHLORIDE 104 mmol/L (101-111); CREATININE 0.6 mg/dL (0.6-1.2); GFR - MDRD 145 (>89); GLUCOSE 113 mg/dL (70-100); LIPASE 25 U/L (22-51); POTASSIUM 3.6 mmol/L (3.5-5.0); SODIUM 140 mmol/L (135-145); TOTAL PROTEIN 6.6 g/dL (6.7-8.2)
[2022-11-06 07:49] VITALS: BP 145/87
[2022-11-06] MEDS: polyethylene glycoL 3350 17 GM PACKET PO SCH ×2 (08:01→08:16)
[2022-11-06] MEDS: amLODIPine 5 MG TABLET PO SCH (08:01)
[2022-11-06] MEDS: LIPASE/PROTEASE/AMYLASE CAPSULE PO SCH ×2 (08:01→11:48)
[2022-11-06] MEDS: ENOXAPARIN 40 MG/0.4 ML SYRINGE SUBQ SCH (08:02)
[2022-11-06] MEDS: POTASSIUM CHLORIDE 20 MEQ/15 ML UDC PO SCH (08:02)
[2022-11-06] MEDS: NICOTINE 7 MG PATCH TOP SCH (08:04)
[2022-11-06] MEDS: cefTRIAXone 1 GM in SODIUM CHLORIDE 0.9% MINIBAG 100 ML IV SCH (08:04)
[2022-11-06] MEDS: SODIUM CHLORIDE 0.9% 1,000 ML IV SCH (13:13)
--- NOTE | 2022-11-06 14:57 | Discharge Plan ---
Discharge Plan Problem Reviewed?: Yes Disposition: Home, Self Care Condition: Stable Prescriptions: oxyCODONE [Roxicodone] 10 mg PO Q4HR PRN #60 tab PRN Reason: Moderate Pain (Level 4-6) Nicotine 7 mg Patch [Nicoderm] 1 patch TOP DAILY #14 patch Lipase/Protease/Amylase [Pancrelipase Dr 5,000/17,000/24,000 [facility]] 3 cap PO TIDWM #270 cap Diet: Regular (BRAT Diet) Activity Restrictions: Activity as Tolerated (Avoid driving, operating dangerous machinery, and heights when taking oxycodone or any other opiate medications) Shower Restrictions: No Driving Restrictions: Yes (No driving while taking oxycodone) Instruction Topics: Pancreatitis No Smoking: If you smoke, Please STOP! Call for help.
--- NOTE | 2022-11-06 17:33 | DISCHARGE SUMMARY ---
Discharge Summary Admit Date: 11/02/22 Discharge Date: 11/06/22 Discharging Provider: Dr. Goldy Tanner Code Status: Attempt Resuscitation Condition at Discharge: Stable Discharge Disposition: 01 Home, Self Care - DIAGNOSES Admission Diagnoses: Acute pancreatitis Pancreatic pseudocyst Lung consolidation Discharge Diagnoses with Status of Each Condition: Acute alcoholic pancreatitis Improved Atypical pneumonia Resolved - HPI History of Present Illness: Patient is a 46 YO male with a history of recurrent pancreatitis who presented to the ED yesterday 11/01/22 for severe epigastric pain. He was seen here in [place] 2022 for acute alcoholic pancreatitis and he states that he has had zero pain- free days since then. Additionally, he has visited [place] and in the last month for pain management. He expresses frustration with his persistent symptoms, stating that he has implemented dietary changes to reduce his risk for pancreatitis such as reducing fat intake and cutting out alcohol. In the past, he suffered from alcohol abuse, and states that he has not consumed alcohol since July 2022. Currently he has diffuse abdominal pain that is worst in the epigastric area along with mid to lower back pain. He rates his pain at an 8/10 at rest, but a 10/10 with coughing, deep breathing, and laughing. He is requesting IV Dilaudid 2 mg by name. He vomited 'mucus' twice yesterday but is not currently nauseas. He reports bloating and constipation, but attributes this to the opioids that he has been taking. He also reports losing 20 pounds in the last month and a 'tingly' sensation in his hands bilaterally. He is urinating normally. He denies skin rash, hematemesis, hematuria, or hematochezia. CT of the abdomen on 10/06/22 showed pancreatic necrosis and a 0.4 cm pancreatic pseudocyst. He reports that he had a CT last week that found more cysts. - HOSPITAL COURSE Hospital Course: Patient was started on IV fluids and pain control as well as antiemetics for the acute pancreatitis. In addition, due to the abnormal chest x-ray findings,He was started on azithromycin and Rocephin which she completed for 5 days. His pain was controlled with combination of IV Dilaudid and oxycodone and eventually was able to taper off IV pain medications. He was transitioned to p.o. pain medications and a full liquid diet and was able to manage this for over 24 hours prior to discharge. Patient felt comfortable advancing his diet further at home given that he has had similar events in the past. He will be discharged with a short supply of as needed oxycodone and with recommendations to follow-up with PCP and possibly GI due to the history of recurrent pancreatitis with pancreatic pseudocyst. - ALLERGIES Allergies/Adverse Reactions: Allergies Allergy/AdvReac Type Severity Reaction Status Date / Time No Known Drug Allergies Allergy Verified 11/01/22 23:52 - MEDICATIONS Home Medications: Ambulatory Orders Medication Instructions Recorded Confirmed Gabapentin [Neurontin] 300 mg PO BID 10/17/21 11/02/22 Propranolol HCl 20 mg PO BID PRN 10/17/21 11/02/22 Dicyclomine [Bentyl] 10 mg PO TID PRN 02/23/22 11/02/22 amLODIPine [Norvasc] 5 mg PO DAILY #30 tablet 02/26/22 11/02/22 Promethazine [Phenergan] 25 mg PO Q6H PRN #10 tab 09/03/22 11/02/22 Pnv No.95/Ferrous Fum/Folic AC 1 each PO DAILY #30 tablet 10/05/22 11/02/22 [ [place]] Thiamine [Vitamin B-1] 100 mg PO DAILY #30 tablet 10/05/22 11/02/22 Hydromorphone HCl 1 - 2 tab PO Q8HR PRN 11/02/22 11/02/22 Senna [Senokot] 2 tab PO QPM 11/02/22 11/02/22 Lipase/Protease/Amylase 3 cap PO TIDWM #270 cap 11/06/22 [Pan[address]lipase [facility] 5,000/17,000/24,[facility]] Nicotine 7 mg Patch [Nicoderm] 1 patch TOP DAILY #14 patch 11/06/22 amLODIPine [Norvasc] 5 mg PO DAILY tab 11/06/22 oxyCODONE [Roxicodone] 10 mg PO Q4HR PRN #60 tab 11/06/22 - PHYSICAL EXAM AT DISCHARGE General Appearance: positive: No acute distress Eyes Bilateral: positive: Normal inspection Respiratory: positive: Chest non-tender Cardiovascular: positive: Regular rate & rhythm, No murmur, No gallop Abdomen: positive: Non-tender, No organomegaly, Nml bowel sounds, No distention Back: positive: Nml inspection Skin: positive: Color nml Extremities: positive: No pedal edema Neurologic/Psychiatric: positive: Oriented x3, CN's nml (2-12) - LABS Result Diagrams: 11/06/22 04:18 11/06/22 04:18 - DIAGNOSTIC IMAGING Diagnostic Imaging Results: Final report reviewed - SEPSIS Current Stage of Sepsis: Ruled out Sepsis Criteria: WBC count greater than 12,000 or less than 4000 - TIME SPENT Time Spent in Discharge (Minutes): 33
== END 2022-11-06 15:26 | disposition home or self-care (01) | DRG 438 ==
LOC: EDUNIT# → ED 23:44 → MS3 11-02 11:29
PROVIDERS: ADMIT Specialist; ATTEND Family Medicine Sports Medicine
DX: K85.21 Alcohol induced acute pancreatitis with uninfected necrosis (principal); J18.9 Pneumonia, unspecified organism; K86.3 Pseudocyst of pancreas; K59.03 Drug induced constipation; T40.605A Adverse effect of unspecified narcotics, initial encounter; F17.210 Nicotine dependence, cigarettes, uncomplicated; E87.6 Hypokalemia; R63.4 Abnormal weight loss; Z68.24 Body mass index [BMI] 24.0-24.9, adult; F10.11 Alcohol abuse, in remission; F41.9 Anxiety disorder, unspecified
CPT/HCPCS: 36415; 74177; 80053; 81003; 83690; 85025; 87040; 96374; 96375; 96376; 99284; 99285; A9270; J1170; J1650; J7120; Q9967; 81001; 87086

== ENCOUNTER 2022-12-01 21:07 | Emergency (ER) | payer MEDICAID ==
--- NOTE | 2022-12-01 21:17 | ED Physician Documentation ---
History of Present Illness - Stated complaint Stated Complaint: ABD PX - Additonal information Additional information: 46-year-old male known history of alcohol abuse disorder, polysubstance abuse, angry otitis presenting with abdominal and left shoulder pain. Reports was doing well until he had a high fat containing meal including spaghetti with meatballs and a chicken sandwich. Multiple recent hospitalizations for similar presentations however he states that today he is having new left-sided shoulder pain. Patient reports that he is on the "waiting list" for follow-up with gastroenterology at [facility]. States that he has not been given any appointments for follow-up. Denies alcohol or other illicit substance abuse. Review of Systems Constitutional: denies: Fever Eyes: denies: Loss of vision Ears: denies: Loss of hearing Cardiac: reports: Chest pain / pressure GI: reports: Abdominal Pain. denies: Nausea, Vomiting : denies: Dysuria PD PAST MEDICAL HISTORY - Past Medical History Cardiovascular: None Respiratory: None Neuro: None Endocrine/Autoimmune: None GI: Pancreatitis, Other : None HEENT: None Psych: Anxiety, Other Musculoskeletal: Chronic back pain, Other (restless legs, sciatica) Derm: Other - Past Surgical History Past Surgical History: No - Present Medications Home Medications: Ambulatory Orders Medication Instructions Recorded Confirmed Gabapentin [Neurontin] 300 mg PO BID 10/17/21 12/01/22 Propranolol HCl 20 mg PO BID PRN 10/17/21 11/02/22 Dicyclomine [Bentyl] 10 mg PO TID PRN 02/23/22 11/02/22 amLODIPine [Norvasc] 5 mg PO DAILY #30 tablet 02/26/22 11/02/22 Promethazine [Phenergan] 25 mg PO Q6H PRN #10 tab 09/03/22 11/02/22 Pnv No.95/Ferrous Fum/Folic AC 1 each PO DAILY #30 tablet 10/05/22 11/02/22 [ Caplet] Thiamine [Vitamin B-1] 100 mg PO DAILY #30 tablet 10/05/22 11/02/22 Hydromorphone HCl 1 - 2 tab PO Q8HR PRN 11/02/22 11/02/22 Senna [Senokot] 2 tab PO QPM 11/02/22 11/02/22 Lipase/Protease/Amylase 3 cap PO TIDWM #270 cap 11/06/22 [Pancrelipase Dr 5,000/17,000/24,000 Half-Way] Nicotine 7 mg Patch [Nicoderm] 1 patch TOP DAILY #14 patch 11/06/22 oxyCODONE [Roxicodone] 10 mg PO Q4HR PRN #60 tab 11/06/22 - Allergies Allergies/Adverse Reactions: Allergies Allergy/AdvReac Type Severity Reaction Status Date / Time No Known Drug Allergies Allergy Verified 12/01/22 21:18 - Social History Does the pt smoke?: Yes Smoking Status: Current every day smoker Does the pt drink ETOH?: Yes Does the pt have substance abuse?: No - Immunizations Immunizations are current?: Yes - POLST Patient has POLST: No POLST Status: Full Code PD ED PE NORMAL - Vitals Vital signs reviewed: Yes (Tachycardic and hypertensive) - General General: Alert and oriented X 3, Well developed/nourished - HEENT HEENT: Atraumatic, PERRL - Neck Neck: Supple, no meningeal sign - Cardiac Cardiac: RRR - Respiratory Respiratory: No respiratory distress, Clear bilaterally - Abdomen Abdomen: Other (Epigastric tenderness) - Male Male : Deferred - Rectal Rectal: Deferred - Derm Derm: Normal color - Extremities Extremities: No deformity - Neuro Neuro: Alert and oriented 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, 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, No motor deficit, No sensory deficit, Normal speech Results - Vitals Vitals: Vital Signs - 24 hr 12/01/22 12/01/22 12/01/22 21:16 21:19 21:35 Temperature 37.3 C Heart Rate 128 H Respiratory 20 20 17 Rate Blood Pressure 145/102 H O2 Saturation 99 12/01/22 12/01/22 12/01/22 21:45 22:15 23:16 Temperature Heart Rate 113 H 120 H Respiratory 22 17 20 Rate Blood Pressure O2 Saturation 100 196 H 12/01/22 12/02/22 12/02/22 23:17 02:07 03:07 Temperature Heart Rate 115 H 120 H Respiratory 16 Rate Blood Pressure 133/85 H 135/87 H O2 Saturation 98 12/02/22 05:00 Temperature Heart Rate 114 H Respiratory 16 Rate Blood Pressure 123/85 H O2 Saturation 94 Oxygen O2 Source Room air - EKG (time done) 2154 EKG releavant findings:: EKG personally interpreted by author of this note. Relevant findings are: Sinus rhythm with rate 119 bpm. Normal axis. Normal VA, QRS, QTc intervals. No ST segment elevations or T wave inversions. - Labs Labs: Laboratory Tests 12/01/22 12/01/22 12/01/22 21:25 21:25 21:25 WBC 14.6 H RBC 4.59 L Hgb 14.3 Hct 43.7 MCV 95.2 H MCH 31.2 H MCHC 32.7 RDW 15.3 H Plt Count 272 MPV 9.0 Neut # (Auto) 10.9 H Lymph # (Auto) 2.2 [place] # (Auto) 1.1 H Eos # (Auto) 0.3 Baso # (Auto) 0.1 Absolute Nucleated RBC 0.00 Nucleated RBC % 0.0 Sodium 136 Potassium 3.7 Chloride 101 Carbon Dioxide 24 Anion Gap 11.0 BUN 12 Creatinine 0.9 Estimated GFR (MDRD) 91 Glucose 176 H Calcium 8.7 Total Bilirubin 1.2 H AST 22 ALT 18 Alkaline Phosphatase 59 Troponin I High Sens 3.3 Total Protein 7.7 Albumin 3.9 Globulin 3.8 Albumin/Globulin Ratio 1.0 Lipase 1836 H Ethyl Alcohol 12/01/22 21:25 WBC RBC Hgb Hct MCV MCH MCHC RDW Plt Count MPV Neut # (Auto) Lymph # (Auto) [place] # (Auto) Eos # (Auto) Baso # (Auto) Absolute Nucleated RBC Nucleated RBC % Sodium Potassium Chloride Carbon Dioxide Anion Gap BUN Creatinine Estimated GFR (MDRD) Glucose Calcium Total Bilirubin AST ALT Alkaline Phosphatase Troponin I High Sens Total Protein Albumin Globulin Albumin/Globulin Ratio Lipase Ethyl Alcohol < 5.0 PD Medical Decision Making - ED course Complexity details: reviewed old records, reviewed results, re-evaluated patient, considered differential, d/w patient ED course: Patient 46-year-old male presenting to the emergency department with chief complaint of abdominal pain as well as chest and left shoulder pain. This is in the setting known history of chronic pancreatitis with pancreatic pseudocyst, alcohol and polysubstance abuse with previous drug screens positive for methamphetamine. Patient tachycardic and hypertensive on arrival to the emergency department but otherwise hemodynamically stable. Some epigastric tenderness noted on exam without guarding, rebound or rigidity. No specific right upper quadrant tenderness is appreciated. Comprehensive labs demonstrated a leukocytosis as well as a lipase slightly greater than 1800. No significant renal insufficiency, hepatic dysfunction, elevation in bilirubin that would be suggestive of biliary obstruction or severe electrolyte abnormality. Patient requested hydromorphone by name on arrival to the emergency department. Initially reported that he did not have any current pain medication however when asked about his current open prescriptions for both hydromorphone and Roxicodone available per his ED ID he reported that he has run out of these medications. Stated that he has not yet followed up with gastroenterology although he has been "trying" and that he is on the "wait list" at [facility] ([place], [place]) in [place]. Denied alcohol abuse or other illicit substance abuse. Was given dose hydromorphone on arrival to the emergency department. EKG as outlined above was negative for indications of acute cardiac ischemia or dysrhythmia. CTA chest nonacute, CT abdomen pelvis redemonstrates inflammatory changes around the pancreas now with walled off areas of peripancreatic necrosis. I believe it is likely that the patient's left-sided chest and shoulder pain is secondary to phrenic nerve irritation. Patient placed on schedule narcotic pain medication every 4 hours as well as given adjuvant medications including Toradol, IV Benadryl and IV haloperidol. Started on aggressive fluid resuscitation with normal saline to 250ml/h after 1 L bolus. Monitor carefully throughout the entirety of my shift. Did receive Additional dose of hydromorphone at 0200 hrs. for pain control. On reevaluation found to be resting comfortably although he has maintained a persistent low-level sinus tachycardia. We will be signing out to the oncoming physician pending bed availability at our facility. Please see their documentation for further detail. Departure - Departure Clinical Impression: Acute on chronic pancreatitis, Pancreatic necrosis
[2022-12-01 21:30] LABS: BASOPHILS # (AUTO) 0.1 10^3/uL (0.0-0.1); BASOPHILS % (AUTO) 0.4 %; EOSINOPHILS # (AUTO) 0.3 10^3/uL (0.0-0.7); EOSINOPHILS % (AUTO) 1.9 %; HCT - HEMATOCRIT 43.7 % (42.0-52.0); HGB - HEMOGLOBIN 14.3 g/dL (14.0-18.0); LYMPHOCYTES # (AUTO) 2.2 10^3/uL (1.5-3.5); LYMPHOCYTES % (AUTO) 14.9 %; MEAN CORPUSCULAR HEMOGLOBIN 31.2 pg (27.0-31.0); MEAN CORPUSCULAR HGB CONC 32.7 g/dL (32.0-36.0); MEAN CORPUSCULAR VOLUME 95.2 fL (80.0-94.0); MONOCYTES # (AUTO) 1.1 10^3/uL (0.0-1.0); MONOCYTES % (AUTO) 7.4 %; NEUTROPHILS # (AUTO) 10.9 10^3/uL (1.5-6.6); PLT - PLATELET COUNT 272 10^3/uL (130-450); RED BLOOD COUNT 4.59 10^6/uL (4.70-6.10); RED CELL DISTRIBUTION WIDTH 15.3 % (12.0-15.0); WHITE BLOOD COUNT 14.6 x10^3/uL (4.8-10.8)
[2022-12-01] MEDS ORDERED: SODIUM CHLORIDE 0.9% 1,000 ML IV STA ×2 (21:32→23:33)
[2022-12-01] MEDS ORDERED: ONDANSETRON 4 MG/2 ML VIAL IVP STA (21:37)
[2022-12-01] MEDS ORDERED: HYDROmorphone 1 MG/ML CARPUJECT IVP STA (21:37)
[2022-12-01] MEDS ORDERED: iohexoL-300 100 ML VIAL ONE (21:49)
[2022-12-01 21:54] LABS: ALBUMIN 3.9 g/dL (3.2-5.5); BILIRUBIN,TOTAL 1.2 mg/dL (0.2-1.0); CALCIUM 8.7 mg/dL (8.5-10.3); CREATININE 0.9 mg/dL (0.6-1.2); POTASSIUM 3.7 mmol/L (3.5-5.0); TOTAL PROTEIN 7.7 g/dL (6.7-8.2)
[2022-12-01] MEDS ORDERED: iohexoL-300 100 ML VIAL IVP ONE (22:27)
--- NOTE | 2022-12-01 23:12 | CT Report ---
PROCEDURE: ANGIO CHEST W/WO INDICATIONS: r/o PE CONTRAST: 100mL Omni 300 TECHNIQUE: After the administration of intravenous contrast, 2 mm axial images were acquired from the pulmonary apices to the posterior costophrenic angles during the arterial phase. In addition, 1 mm lung kernel and 5 mm soft tissue kernel reconstructions were performed. 3-dimensional coronal oblique maximum int ensity projection (MIP) reformats, 8 mm axial MIP, and 5 mm coronal and sagittal MPR reformats were t hen performed through the thorax. For radiation dose reduction, the following was used: automated exp osure control, adjustment of mA and/or kV according to patient size. COMPARISON: CT chest 09/19/2021, CT abdomen pelvis 12/01/2022, 11/02/2022. FINDINGS: Image quality: Excellent. Pulmonary arteries: Pulmonary arteries are normal in size, and demonstrate no intraluminal filling d efects to suggest central pulmonary embolism. Lower Neck: No lymphadenopathy by size criteria. Thyroid: Visualized thyroid demonstrates no discrete nodules. Axillae: No lymphadenopathy by size criteria. Chest Wall: Unremarkable. Bones: Visualized osseous structures demonstrate no suspicious lesions. Lungs and Airways: No acute consolidation. There is mild dependent atelectasis bilaterally. The trac hea and central airways are patent. Pleura: No pneumothorax or pleural effusions. Heart: Heart size is normal. No pericardial effusion. Thoracic Vessels: The thoracic aorta is normal in size. Mediastinum and Asha: No lymphadenopathy by size criteria. Esophagus: No wall thickening. No hiatal hernia. Abdomen: Visualized upper abdomen demonstrates a loculated fluid collection with irregular margins a long the stomach measuring 8.1 x 6.0 cm with extension to the pancreatic body as well as adjacent fat stranding. There is mild pancreatic duct dilatation. IMPRESSION: 1. No evidence of central pulmonary embolism. 2. No acute airspace consolidation. 3. Visualized upper abdomen demonstrates a loculated peripancreatic fluid collection extending along the gastric wall suggestive of walled off necrosis. Reviewed by: Rony Moody MD on 12/01/2022 11:10 PM PDT Approved by: Rony Moody MD on 12/01/2022 11:10 PM PDT Station ID: [id number]
--- NOTE | 2022-12-01 23:33 | CT Report ---
PROCEDURE: ABDOMEN/PELVIS W INDICATIONS: abd pain CONTRAST: 100mL Omni 300 TECHNIQUE: After the administration of intravenous contrast, 5 mm thick sections acquired from the diaphragms to the symphysis. 5 mm thick coronal and sagittal reformats were acquired. For radiation dose reducti on, the following was used: automated exposure control, adjustment of mA and/or kV according to [place] ent size. COMPARISON: CT abdomen pelvis 11/02/2022, 10/06/2022 FINDINGS: Image quality: Excellent. Lung bases:There is mild dependent atelectasis. Heart: Heart is normal in size. ABDOMEN: Liver:A small cyst is redemonstrated within the left hepatic lobe. Gallbladder: Within normal limits without calcified gallstones. Biliary ducts: No biliary ductal dilatation. Pancreas:There is mild pancreatic duct dilatation measuring up to 0.5 cm which appears similar to sl ightly increased compared to the prior studies. Mild peripancreatic fat stranding is demonstrated wit h a new loculated peripancreatic fluid collection extending superiorly to the gastric wall. This isha ures up to approximately 8.2 x 6.3 cm in transverse dimension by 6.5 cm in cranial caudal dimension. There is extensive associated adjacent fat stranding. Spleen: Normal in size. Adrenal Glands: No adrenal nodules. Kidneys and Ureters: No hydronephrosis. Stomach and Bowel: Stomach, small bowel loops, and colon are normal in caliber and wall thickness. T he appendix is normal. There is colonic diverticulosis. Peritoneum:There is minimal intraperitoneal free fluid. No free air. Ventral Wall: No hernia. Abdominal Nodes: No retroperitoneal or mesenteric adenopathy by size criteria. Vessels: Aorta and inferior vena cava are normal in size. PELVIS: Pelvic Organs: Unremarkable. Bladder: Unremarkable. Pelvic Nodes: No enlarged lymph nodes. Miscellaneous: No inguinal hernias. Bones: Visualized osseous structures demonstrate no suspicious lesions. IMPRESSION: 1. New loculated peripancreatic fluid collection extending along the gastric wall is compatible with walled off necrosis secondary to pancreatitis demonstrated on the prior CT studies. 2. Mild pancreatic duct dilatation appears similar to slightly increased compared to the prior studie s. 3. No discrete pancreatic mass identified. Reviewed by: Rony Moody MD on 12/01/2022 11:45 PM PDT Approved by: Rony Moody MD on 12/01/2022 11:45 PM PDT Station ID: [id number]
[2022-12-01] MEDS ORDERED: diphenhydrAMINE INJ 50 MG/ML VIAL IVP STA (23:39)
[2022-12-01] MEDS ORDERED: HALOPERIDOL 5 MG/ML VIAL IVP STA (23:39)
[2022-12-01] MEDS ORDERED: KETOROLAC 15 MG/ML VIAL IVP STA (23:39)
[2022-12-02] MEDS ORDERED: HYDROmorphone 1 MG/ML CARPUJECT IVP PRN ×2 (01:48→11:19)
[2022-12-02] MEDS ORDERED: LACTATED RINGERS 1,000 ML IV STA (07:21)
[2022-12-02 08:21] LABS: ALBUMIN 3.2 g/dL (3.2-5.5); ALBUMIN/GLOBULIN RATIO 0.9 (1.0-2.2); BILIRUBIN,TOTAL 1.1 mg/dL (0.2-1.0); CALCIUM 8.1 mg/dL (8.5-10.3); CREATININE 0.7 mg/dL (0.6-1.2); MAGNESIUM 1.8 mg/dL (1.7-2.8); POTASSIUM 3.7 mmol/L (3.5-5.0); TOTAL PROTEIN 6.8 g/dL (6.7-8.2)
[2022-12-02] MEDS ORDERED: KETOROLAC 15 MG/ML VIAL IVP STA (11:20)
--- NOTE | 2022-12-02 11:45 | ED Physician Documentation ---
ED Addendum - Addendum Addendum: 12/02/22 11:42 Morning report reveals there are no discharges pending from the hospital. We will continue treatment of the patient here in the ER with regimen as if you were inpatient. He states his pain has decreased some overnight. He is still needing periodic pain medicine. It has been scheduled infrequently. He states he is tolerating p.o. ice chips and does feel that he would be able to try clear liquid diet. He does not have any nausea. He is having abdominal pain and still has moderate tenderness to palpation but no guarding. Resting heart rate is slightly tachycardic but he had not had any regular medicines which does include propranolol. He does normally take pancreatic enzymes as well. Review of his prior medication list revealed some medications that we can try to resume orally at this point. I ordered his pancreatic enzymes as well as famotidine and his propranolol. I will hold on his losartan for now as his blood pressure is okay. I ordered routine IV fluids still for now. I put in for a clear liquid diet. We will see how his symptoms do with regard to tolerating oral intake. His repeat lipase this morning is down significantly to only 700. I did order regular oral pain medications and increase the frequency of the as needed to every 3 hours. I will consult surgery regarding the pancreatic cyst though up-to-date states that the drainage has become infrequent and just watching time for resolution below a certain size.
[2022-12-02] MEDS: FAMOTIDINE 20 MG TABLET PO SCH ×2 (11:46→11:47)
[2022-12-02] MEDS ORDERED: PROPRANOLOL 10 MG TABLET PO SCH (12:00)
[2022-12-02] MEDS: oxyCODONE 5 MG TABLET PO SCH ×2 (12:54→16:54)
[2022-12-02] MEDS: LIPASE/PROTEASE/AMYLASE CAPSULE PO SCH ×2 (13:24→16:54)
--- NOTE | 2022-12-02 16:52 | ED Physician Documentation ---
ED Addendum - Addendum Addendum: 12/02/22 16:48 The patient has progressed through the day with increasing oral intake to clear liquid diet and some juices. He is able to do that without any notable increase in pain. He is not have any nausea. He states his pain is been tolerable and he had had some IV medication around noon but has done okay with oral oxycodone this afternoon. He has had episodes of pancreatitis in the past and feels at this point he has been able to manage at home with this degree of symptoms. He would like to be discharged at this time and it seems like a reasonable clinical improvement level. The patient does have pancreatic enzymes at home. He has his other usual medications for blood pressure and heart rate. He uses Gaviscon if needed. He does use famotidine if needed. He is not had any alcohol recently. He states he will not be having any. He does not recall the name of the institute director he is seen in January. I was going to try to call and get a sooner appointment but difficult without knowing who it is. He believes the specialist is out of [place]. I suggest he call his primary care and have them contact the institute director/office and see if they can expedite a follow-up. Right now he has an appointment in January. He does have the pancreatic cyst that has increased in size on CT scan. I did discuss it with Dr. Santos on for surgery and confirmed my understanding that these would typically be just watched if they are not creating much symptoms. At this point the patient is improved clinically and is stable for discharge. I will send prescription for pain medicine to his preferred pharmacy. Disposition: Patient discharged home in stable condition Diagnoses: 1. Upper abdominal pain 2. Acute on chronic pancreatitis 3. Pancreatic cyst
[2022-12-02 17:14] VITALS: BP 147/95
== END 2022-12-02 17:17 | disposition home or self-care (01) ==
LOC: ED 21:07
DX: K85.91 Acute pancreatitis with uninfected necrosis, unspecified (principal); K86.2 Cyst of pancreas; F17.200 Nicotine dependence, unspecified, uncomplicated; Z79.899 Other long term (current) drug therapy
CPT/HCPCS: 36415; 71275; 74177; 80053; 80320; 83690; 83735; 84484; 85025; 93005; 96361; 96374; 96375; 96376; 99284; 99285; A9270; J1170; J1200; J7120; Q9967

== ENCOUNTER 2023-05-17 15:35 | Emergency (ER) | payer OTHER ==
--- NOTE | 2023-05-17 15:46 | ED Physician Documentation ---
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 The patient states he has stopped drinking since his last admission and has been adhering to a low- fat and relatively healthy diet but recently he has had an increase in the upper abdominal pain. It is across the entire upper abdomen and it is worse when he has a completely empty stomach better with pain medication. It is not worsened by oral intake and patient states he has been drinking fluids and taking things like broths and soups and smoothies with out increase in pain. He has nausea but no vomiting, no fever, no constipation or diarrhea, no dysuria urgency or f requency. He has no chest pain or difficulty breathing, no cough or URI symptoms. He had a EGD during his last admission which is negative for H. pylori and showing mild gastritis. He followed up with GI as outpatient as well as his PCP. He states that they told him to come in to the ER if he was having ongoing pain. It appears that he has repetitively got prescriptions for narcotics over the course of the last couple of weeks. He is also taking a PPI which she states he is compliant with. He states he has been compliant with abstaining from alcohol. Review of Systems Constitutional: reports: Reviewed and negative Cardiac: reports: Reviewed and negative Respiratory: reports: Reviewed and negative GI: reports: Abdominal Pain, Nausea. denies: Abdominal Swelling, Vomiting, Constipation, Diarrhea, Hematemesis, Bloody / black stool : reports: Reviewed and negative Skin: reports: Reviewed and negative Musculoskeletal: reports: Reviewed and negative Neurologic: reports: Reviewed and negative PD PAST MEDICAL HISTORY - Past Medical History Past Medical History: Yes Cardiovascular: Hypertension Respiratory: None Neuro: None Endocrine/Autoimmune: None GI: Pancreatitis, Other : None HEENT: None Psych: Anxiety, Other Musculoskeletal: Chronic back pain, Other Derm: Other - Past Surgical History Past Surgical History: No HEENT: Myringotomy (tubes) - Present Medications Home Medications: Ambulatory Orders Medication Instructions Recorded Confirmed Gabapentin [Neurontin] 300 mg PO BID 10/17/21 04/16/23 Propranolol HCl 20 mg PO BID PRN 10/17/21 04/16/23 Dicyclomine [Bentyl] 10 mg PO TID PRN 02/23/22 04/16/23 amLODIPine [Norvasc] 5 mg PO DAILY #30 tablet 02/26/22 04/16/23 Lisinopril [Zestril] 20 mg PO DAILY 02/01/23 04/16/23 HYDROmorphone [Dilaudid] 2 mg PO Q8H PRN #21 tab 04/19/23 Lipase/Protease/Amylase 3 each PO TIDWM #270 cap 04/19/23 [Pancrelipase Dr 5,000/17,000/24,000 Alf] Pantoprazole [Protonix] 40 mg PO BID #60 tablet 04/19/23 Famotidine [Acid Teacher [employer]] 20 mg PO DAILY #30 tab 05/17/23 Oxycodone HCl/Acetaminophen 1 - 2 each PO Q6H PRN #14 tablet 05/17/23 [Percocet 5-325 mg Tablet] - Allergies Allergies/Adverse Reactions: Allergies Allergy/AdvReac Type Severity Reaction Status Date / Time No Known Drug Allergies Allergy Verified 05/17/23 15:42 - Social History Does the pt smoke?: Yes Smoking Status: Current every day smoker Does the pt drink ETOH?: Yes Does the pt have substance abuse?: No - Immunizations Immunizations are current?: Yes - POLST Patient has POLST: No POLST Status: Full Code PD ED PE NORMAL - Vitals Vital signs reviewed: Yes - General General: Alert and oriented X 3, No acute distress, Well developed/nourished - HEENT HEENT: Atraumatic, Moist mucous membranes - Neck Neck: Supple, no meningeal sign, No adenopathy - Cardiac Cardiac: RRR, No murmur - Respiratory Respiratory: No respiratory distress, Clear bilaterally - Abdomen Abdomen: Normal bowel sounds, Soft, Non distended, No organomegaly, Other (Generalized upper abdominal tenderness without guarding.) - Back Back: No CVA TTP, No spinal TTP - Derm Derm: Normal color, Warm and dry, No rash - Neuro Neuro: Alert and oriented X 3 Eye Opening: Spontaneous Motor: Obeys Commands Verbal: Oriented GCS Score: 15 - Psych Psych: Normal mood, Normal affect Results - Vitals Vitals: Vital Signs - 24 hr 05/17/23 15:37 Temperature 36.6 C Heart Rate 87 Respiratory 16 Rate Blood Pressure 135/93 H O2 Saturation 99 Oxygen O2 Source Room air - Labs Labs: Laboratory Tests 05/17/23 05/17/23 15:49 15:49 WBC 13.8 H RBC 4.27 L Hgb 14.2 Hct 42.6 MCV 99.8 H MCH 33.3 H MCHC 33.3 RDW 14.6 Plt Count 247 MPV 8.9 Neut # (Auto) 9.0 H Lymph # (Auto) 3.7 H [place] # (Auto) 0.7 Eos # (Auto) 0.5 Baso # (Auto) 0.1 Absolute Nucleated RBC 0.00 Nucleated RBC % 0.0 Sodium 139 Potassium 3.8 Chloride 104 Carbon Dioxide 29 Anion Gap 6.0 BUN 12 Creatinine 0.7 Estimated GFR (MDRD) 121 Glucose 139 H Calcium 9.9 Total Bilirubin 0.5 AST 16 ALT 10 Alkaline Phosphatase 68 Total Protein 7.1 Albumin 4.5 Globulin 2.6 Albumin/Globulin Ratio 1.7 Lipase 312 H Ethyl Alcohol < 10.0 PD Medical Decision Making - ED course Complexity details: reviewed old records, reviewed results, re-evaluated patient, considered differential, d/w patient ED course: 47-year-old male presented with recurrent midepigastric and upper abdominal pain. He has a known history of alcoholic pancreatitis as well as minimal gastritis and was seen recently for same. On arrival here, the patient is very well-appearing, appears in no distress, vital signs are stable and he is afebrile here. He is reporting upper abdominal pain though his physical exam is fairly reassuring, he does not have any peritoneal signs. There is concern for possible exacerbation of his pancreatitis versus GERD or gastritis versus cholecystitis versus gastroenteritis or other abdominal infection. I reviewed his recent EGD which shows negative H. pylori and only mild gastritis. We did obtain labs which show a mild leukocytosis at 13,000 otherwise stable CBC, his chemistry reveals a lipase in the 300s, otherwise stable chemistry. I discussed with patient that he might have a mild flare of his pancreatitis versus chronic symptoms of pancreatitis versus exacerbation of his gastritis. At this time he does not have any peritoneal signs, no fever or alteration in vital signs and I do not think we would have benefit from obtaining a follow-up CT today, and patient agrees and does not wish to have a CT today. He received a dose of pain medication here as well as famotidine and has been stable. I would like to treat his GERD and gastritis symptoms by adding famotidine to his pantoprazole and I will give a short course of pain medication again though patient has been receiving frequent short prescriptions for narcotic pain medication. I advised that if he had ongoing pain that I recommend follow-up with pain management as he has now required a fairly large amount of narcotics. I advised that we would not continue to give narcotic refills through the ED but certainly if he had sudden worsening in his symptoms, fever, vomiting, abdominal rigidity or worsening concerns that he should return to the ER for reevaluation. I recommended that he adhere to a clear liquid diet for now for the next day or 2 and he can take antiemetics as needed allow his bowels to rest, and return if any worsening symptoms. Departure - Departure Disposition: 01 Home, Self Care Clinical Impression: Pancreatitis Qualifiers: Chronicity: acute Pancreatitis type: other Acute pancreatitis complication: unspecified Qualified Code(s): K85.80 - Other acute pancreatitis without necrosis or infection Gastritis Qualifiers: Gastritis type: unspecified gastritis Chronicity: unspecified Gastritis bleedi ng: without bleeding Qualified Code(s): K29.70 - Gastritis, unspecified, without bleeding Condition: Good Instructions: ED Gastritis, ED Pancreatitis Prescriptions: Famotidine [Acid [employer]] 20 mg PO DAILY #30 tab Oxycodone HCl/Acetaminophen [Percocet 5-325 mg Tablet] 1 - 2 each PO Q6H PRN #14 tablet PRN Reason: pain Comments: Please continue the pantoprazole and I have also added famotidine to reduce acid in your abdomen. Stick to a clear liquid diet for the next 1 to 2 days until symptoms improve and then you can slowly advance but continue to avoid high-fat foods. You likely have a mild flare of your pancreatitis at this time as well as your gastritis. As we discussed, I do not think you have an infection at this time and your prior EGD showed no H. pylori. If you develop worsening pain not relieved with the medications or persistent vomiting, abdominal distention, or fever, please return to the ER. Continue to refrain from alcohol use. I am prescribing a short course of narcotic pain medication for you. These are potentially dangerous and addictive medications that should be used carefully. These medications may constipate you. Take an [id number] stool softener (docusate) twice daily with plenty of water while taking these medications. If you go 24 hours without a bowel movement, take [id number] miralax, per package instructions. Do not drink or drive while taking these medications. If you received narcotic or sedating medications while in the emergency department, do not drive for 24 hours. Store this medication in a safe, secure place and out of reach of children. It is a violation of federal law to give or sell this medication to another person or to use in a manner other than prescribed. The ED will not refill narcotic prescriptions, including prescriptions lost or stolen. To dispose of unwanted medications: 1. [facility] provides a drop box for medication in pill form only (no liquids) 8:00 am to 4:30 p.m. Tuesday-Tuesday in the lobby of the [facility], [address] [place] [address]. Empty pills into ziplock bag before disposal. Call [phone] for information. 2.[employer] is a free service available to all [facility] residents. Go to [email or web address] Note that many narcotic pain relievers also contain Tylenol/acetaminophen. Please ensure that your total dose of acetaminophen from all sources does not exceed 3 g (3000 mg) per day. Forms: PCP List Discharge Date/Time: 05/17/23 17:46
[2023-05-17 15:50] VITALS: BP 135/93; O2SAT 99
[2023-05-17 15:54] LABS: BASOPHILS # (AUTO) 0.1 10^3/uL (0.0-0.1); BASOPHILS % (AUTO) 0.4 %; EOSINOPHILS # (AUTO) 0.5 10^3/uL (0.0-0.7); EOSINOPHILS % (AUTO) 3.3 %; HCT - HEMATOCRIT 42.6 % (42.0-52.0); HGB - HEMOGLOBIN 14.2 g/dL (14.0-18.0); LYMPHOCYTES # (AUTO) 3.7 10^3/uL (1.5-3.5); LYMPHOCYTES % (AUTO) 26.4 %; MEAN CORPUSCULAR HEMOGLOBIN 33.3 pg (27.0-31.0); MEAN CORPUSCULAR HGB CONC 33.3 g/dL (32.0-36.0); MEAN CORPUSCULAR VOLUME 99.8 fL (80.0-94.0); MEAN PLATELET VOLUME 8.9 fL (7.4-11.4); MONOCYTES # (AUTO) 0.7 10^3/uL (0.0-1.0); MONOCYTES % (AUTO) 4.8 %; NEUTROPHILS % (AUTO) 64.7 %; PLT - PLATELET COUNT 247 10^3/uL (130-450); RED BLOOD COUNT 4.27 10^6/uL (4.70-6.10); RED CELL DISTRIBUTION WIDTH 14.6 % (12.0-15.0); WHITE BLOOD COUNT 13.8 x10^3/uL (4.8-10.8)
[2023-05-17 16:08] LABS: ALBUMIN 4.5 g/dL (3.2-5.5); ALBUMIN/GLOBULIN RATIO 1.7 (1.0-2.2); ALKALINE PHOSPHATASE 68 IU/L (42-121); ALT ALANINE AMINOTRANSFERASE 10 IU/L (10-60); AST ASPARTATE AMINOTRANSFERASE 16 IU/L (10-42); BILIRUBIN,TOTAL 0.5 mg/dL (0.2-1.0); BUN - BLOOD UREA NITROGEN 12 mg/dL (6-20); CALCIUM 9.9 mg/dL (8.5-10.3); CARBON DIOXIDE - CO2 29 mmol/L (21-32); CHLORIDE 104 mmol/L (101-111); CREATININE 0.7 mg/dL (0.6-1.3); ETOH - ETHANOL < 10.0 mg/dL; GFR - MDRD 121 (>89); GLUCOSE 139 mg/dL (74-104); LIPASE 312 U/L (11-82); POTASSIUM 3.8 mmol/L (3.5-4.5); SODIUM 139 mmol/L (135-145); TOTAL PROTEIN 7.1 g/dL (6.4-8.9)
[2023-05-17] MEDS ORDERED: FAMOTIDINE 20 MG/2 ML VIAL IVP STA (16:43)
[2023-05-17] MEDS ORDERED: MORPHINE 2 MG/ML CARPUJECT IVP STA (16:44)
== END 2023-05-17 17:46 | disposition home or self-care (01) ==
LOC: ED 15:35
DX: K85.90 Acute pancreatitis without necrosis or infection, unspecified (principal); I10 Essential (primary) hypertension; F17.200 Nicotine dependence, unspecified, uncomplicated
CPT/HCPCS: 36415; 80053; 80320; 83690; 85025; 96374; 99284

== ENCOUNTER 2023-06-06 16:46 | Outpatient (CLI) | payer OTHER | END 2023-06-06 16:47 | disposition critical access hospital (66) | LOC: EMS 16:46 | DX: R10.32 Left lower quadrant pain (principal); R10.31 Right lower quadrant pain; R10.33 Periumbilical pain; R11.2 Nausea with vomiting, unspecified | CPT/HCPCS: A0425; A0427 ==

== ENCOUNTER 2023-06-06 17:27 | Emergency (ER) | payer OTHER ==
[2023-06-06 18:08] LABS: BASOPHILS # (AUTO) 0.1 10^3/uL (0.0-0.1); BASOPHILS % (AUTO) 0.4 %; EOSINOPHILS # (AUTO) 0.1 10^3/uL (0.0-0.7); EOSINOPHILS % (AUTO) 0.8 %; HCT - HEMATOCRIT 43.6 % (42.0-52.0); HGB - HEMOGLOBIN 14.9 g/dL (14.0-18.0); LYMPHOCYTES # (AUTO) 2.2 10^3/uL (1.5-3.5); LYMPHOCYTES % (AUTO) 13.1 %; MEAN CORPUSCULAR HEMOGLOBIN 33.6 pg (27.0-31.0); MEAN CORPUSCULAR HGB CONC 34.2 g/dL (32.0-36.0); MEAN CORPUSCULAR VOLUME 98.2 fL (80.0-94.0); MEAN PLATELET VOLUME 8.6 fL (7.4-11.4); MONOCYTES # (AUTO) 0.8 10^3/uL (0.0-1.0); MONOCYTES % (AUTO) 4.9 %; NEUTROPHILS # (AUTO) 13.4 10^3/uL (1.5-6.6); NEUTROPHILS % (AUTO) 80.4 %; PLT - PLATELET COUNT 367 10^3/uL (130-450); RED BLOOD COUNT 4.44 10^6/uL (4.70-6.10); RED CELL DISTRIBUTION WIDTH 13.7 % (12.0-15.0); WHITE BLOOD COUNT 16.7 x10^3/uL (4.8-10.8)
[2023-06-06 18:22] LABS: ALBUMIN 4.4 g/dL (3.2-5.5); ALBUMIN/GLOBULIN RATIO 1.9 (1.0-2.2); BILIRUBIN,TOTAL 0.6 mg/dL (0.2-1.0); CALCIUM 9.3 mg/dL (8.5-10.3); CREATININE 0.7 mg/dL (0.6-1.3); POTASSIUM 3.7 mmol/L (3.5-4.5); TOTAL PROTEIN 6.7 g/dL (6.4-8.9)
--- NOTE | 2023-06-06 18:25 | ED Physician Documentation ---
History of Present Illness - Stated complaint Stated Complaint: ABD PX - Chief complaint Chief Complaint: Abd Pain - Additonal information Additional information: 47-year-old male presents to the emergency department for evaluation of acute on chronic abdominal pain. This patient does have a history of alcohol related pancreatitis with pseudocyst formation. Also has a history of peptic ulcer disease. He was admitted to this hospital for these disorders in late March and discharged home. Seen again in this emergency department 05/17/2023 for abdominal pain and pancreatitis which improved with fluids and analgesia in the ER. Patient reports that this episode of pain began several days ago. He has been vomiting. Denies melena or hematochezia. States he is taking his medications as prescribed. Denies any alcohol use. Appears uncomfortable in the exam room. Review of Systems Constitutional: denies: Fever Throat: reports: Reviewed and negative Cardiac: reports: Reviewed and negative Respiratory: reports: Reviewed and negative GI: reports: Abdominal Pain, Nausea, Vomiting. denies: Hematemesis, Bloody / black stool : reports: Reviewed and negative Skin: reports: Reviewed and negative Musculoskeletal: reports: Reviewed and negative PD PAST MEDICAL HISTORY - Past Medical History Past Medical History: Yes Cardiovascular: Hypertension Respiratory: None Neuro: None Endocrine/Autoimmune: None GI: Pancreatitis, Other : None HEENT: None Psych: Anxiety, Other Musculoskeletal: Chronic back pain, Other Derm: Other - Past Surgical History Past Surgical History: No HEENT: Myringotomy (tubes) - Present Medications Home Medications: Ambulatory Orders Medication Instructions Recorded Confirmed Gabapentin [Neurontin] 300 mg PO BID 10/17/21 06/06/23 Propranolol HCl 20 mg PO BID PRN 10/17/21 04/16/23 Dicyclomine [Bentyl] 10 mg PO TID PRN 02/23/22 06/06/23 amLODIPine [Norvasc] 5 mg PO DAILY #30 tablet 02/26/22 04/16/23 Lisinopril [Zestril] 20 mg PO DAILY 02/01/23 06/06/23 HYDROmorphone [Dilaudid] 2 mg PO Q8H PRN #21 tab 04/19/23 Lipase/Protease/Amylase 3 each PO TIDWM #270 cap 04/19/23 [Pancrelipase Dr 5,000/17,000/24,000 Detention] Pantoprazole [Protonix] 40 mg PO BID #60 tablet 04/19/23 06/06/23 Famotidine [Acid Finishing Range Feeder] 20 mg PO DAILY #30 tab 05/17/23 Oxycodone HCl/Acetaminophen 1 - 2 each PO Q6H PRN #14 tablet 05/17/23 06/06/23 [Percocet 5-325 mg Tablet] Pantoprazole Sodium [Protonix] 40 mg PO DAILY #30 tab 06/06/23 oxyCODONE [Roxicodone] 5 mg PO TID PRN #15 tablet 06/06/23 - Allergies Allergies/Adverse Reactions: Allergies Allergy/AdvReac Type Severity Reaction Status Date / Time No Known Drug Allergies Allergy Verified 06/06/23 17:34 - Social History Does the pt smoke?: Yes Smoking Status: Current every day smoker Does the pt drink ETOH?: No Does the pt have substance abuse?: No - Immunizations Immunizations are current?: Yes - POLST Patient has POLST: No POLST Status: Full Code PD ED PE NORMAL - General General: Alert and oriented X 3. No: No acute distress (appears in pain) - HEENT HEENT: PERRL - Neck Neck: Supple, no meningeal sign - Cardiac Cardiac: RRR, No murmur - Respiratory Respiratory: No respiratory distress, Clear bilaterally - Abdomen Abdomen: Normal bowel sounds, Soft. No: Non tender (Generally tender though nonperitoneal abdomen.) - Derm Derm: Normal color, Warm and dry - Extremities Extremities: No deformity - Neuro Neuro: Alert and oriented X 3, wind field service manager 2-12 intact Eye Opening: Spontaneous Motor: Obeys Commands Verbal: Oriented GCS Score: 15 Results - Vitals Vitals: Vital Signs - 24 hr 06/06/23 06/06/23 06/06/23 17:32 19:37 21:00 Temperature 36 C L Heart Rate 60 64 69 Respiratory 18 16 18 Rate Blood Pressure 189/113 H 169/99 H 169/102 H O2 Saturation 100 97 94 Oxygen O2 Source Room air - Labs Labs: Laboratory Tests 06/06/23 06/06/23 06/06/23 18:05 18:05 18:05 WBC 16.7 H RBC 4.44 L Hgb 14.9 Hct 43.6 MCV 98.2 H MCH 33.6 H MCHC 34.2 RDW 13.7 Plt Count 367 MPV 8.6 Neut # (Auto) 13.4 H Lymph # (Auto) 2.2 [place] # (Auto) 0.8 Eos # (Auto) 0.1 Baso # (Auto) 0.1 Absolute Nucleated RBC 0.00 Nucleated RBC % 0.0 Sodium 140 Potassium 3.7 Chloride 104 Carbon Dioxide 25 Anion Gap 11.0 BUN 8 Creatinine 0.7 Estimated GFR (MDRD) 121 Glucose 120 H Calcium 9.3 Total Bilirubin 0.6 AST 18 ALT 11 Alkaline Phosphatase 73 Total Protein 6.7 Albumin 4.4 Globulin 2.3 Albumin/Globulin Ratio 1.9 Lipase 1162 H Ethyl Alcohol < 10.0 - Rads (name of study) CT abd Relevant Findings:: Final report received (Mildly heterogeneous enhancement of the pancreas, suggestive pancreatitis. Marked wall thickening of the lesser curvature of the stomach with adjacent free fluid but no free gas. Findings probably represent gastritis. Pancreatic ductal dilation, possibly stricture in detting of pancreatitis) PD Medical Decision Making - ED course Complexity details: reviewed results, re-evaluated patient, d/w patient ED course: 47-year-old male presents to the emergency department for evaluation of several days uncontrolled abdominal pain with vomiting. He does have a history of alcoholic pancreatitis as well as pseudocyst formation and severe gastritis. Admitted for similar in March 2023. He did have an EGD completed at that time which did show some erosions in the gastric fundus. Patient is on Protonix. He denies any alcohol intake. Here in the emergency department he presents actively vomiting with fairly tender though nonperitoneal abdomen. Initially demetrio CBC, electrolytes. He does have leukocytosis white count of 16.7 thousand. Normal hemoglobin. Normal platelets. Electrolytes without acute worrisome derangement sparing the lipase which is markedly elevated to 1162 when just last week it was just over 300. I initially administered the patient IV Protonix, fluids, Zofran and Dilaudid. On reevaluation he reported that the pain had not improved. Therefore I readministered the Dilaudid. Following the second dose of Dilaudid patient's symptoms markedly improved to the point that he is tolerating sips of clear liquids. the CT scan showed some enhancement of the pancreas suggesting pancreatitis as well as thickening of the stomach consistent with his known history of gastritis. We also discussed brief observation admission but at this time as he is feeling better he would like to trial a discharge home. He is advised clear liquids for the next 24 to 48 hours. He will continue on the Protonix. Prescription for oxycodone known has been sent to the patient's preferred pharmacy. The usual emergent return precautions were discussed at the bedside. . Departure - Departure Disposition: Home, Self Care Clinical Impression: Pancreatitis Qualifiers: Chronicity: chronic Pancreatitis type: unspecified pancreatitis type Qualified Code(s): K86.1 - Other chronic pancreatitis Gastritis Qualifiers: Gastritis type: unspecified gastritis Chronicity: chronic Gastritis bleeding: without bleeding Qualified Code(s): K29.50 - Unspecified chronic gastritis without bleeding Condition: Stable Prescriptions: Pantoprazole Sodium [Protonix] 40 mg PO DAILY #30 tab oxyCODONE [Roxicodone] 5 mg PO TID PRN #15 tablet PRN Reason: Pain Comments: Anjum you are seen today in the emergency department for pain in your abdomen as well as vomiting. You do have a history of severe gastritis or stomach inflammation as well as pancreatitis. Your labs today showed an elevated lipase but the CT scan did not suggest any new or worrisome findings in your abdomen. You do have severe gastritis which is stomach inflammation. I have represcribed the Protonix for you. Over the next 24 hours you advised to clear liquids followed by simple foods such as bananas, rice, applesauce and toast. For more severe pain I have written a prescription for limited amount of oxycodone. If you find that at home your pain is not well controlled, you have uncontrolled vomiting, have any black or bloody stools you will need to return immediately to the ER. Otherwise follow closely with your primary care doctor. Forms: PCP List
[2023-06-06] MEDS: HYDROmorphone 1 MG/ML CARPUJECT IVP STA ×2 (18:34→21:16)
[2023-06-06] MEDS: PROCHLORPERAZINE 10 MG/2 ML VIAL IVP STA (18:39)
[2023-06-06] MEDS: PANTOPRAZOLE 40 MG VIAL IVP STA (18:40)
[2023-06-06] MEDS: SODIUM CHLORIDE 0.9% 1,000 ML IV STA (19:07)
[2023-06-06] MEDS: iohexoL-300 100 ML VIAL IVP ONE (20:25)
--- NOTE | 2023-06-06 21:20 | CT Report ---
PROCEDURE: ABDOMEN/PELVIS W INDICATIONS: pacreatitis CONTRAST: 100mL Omni 300 TECHNIQUE: After the administration of intravenous contrast, 5 mm thick sections acquired from the diaphragms to the symphysis. 5 mm thick coronal and sagittal reformats were acquired. For radiation dose reducti on, the following was used: automated exposure control, adjustment of mA and/or kV according to den[place] ent size. COMPARISON: CT 04/17/2023 FINDINGS: Image quality: Excellent. Lung bases and heart: Unremarkable. Liver: Subcentimeter hypoattenuating liver lesions, too small to characterize by CT. Hepatic steatosi s. Gallbladder and biliary tree: No radiopaque stones or wall thickening. No biliary dilation. Spleen: No splenomegaly. Pancreas: Pancreatic ductal dilation. Mildly heterogeneous enhancement of the pancreas. A few coarse calcifications in the pancreatic head. Adrenals: No adrenal nodule. Kidneys and ureters: No hydronephrosis. No renal cystic lesion which requires follow up. No solid mas s. Bowel and peritoneum: Marked edema of the lesser curvature of the stomach. There is a small amount of free fluid adjacent to the anterior margin of the spleen, continuous with this region of edema. Lymph nodes: No central or retroperitoneal adenopathy. Vessels: No infrarenal aortic aneurysm. PELVIS Reproductive organs: Unremarkable. Bladder: No abnormal wall thickening, accounting for underdistension. Pelvic lymph nodes: No pelvic adenopathy by size criteria. Bones: No aggressive osseous abnormality. Other: No significant ventral or inguinal hernia. IMPRESSION: Mildly heterogeneous enhancement of the pancreas, suggestive of pancreatitis. Marked wall thickening of the lesser curvature of the stomach, with adjacent free fluid but no free g as. Findings probably represent gastritis or more likely ulcer disease. Malignancy is less likely. Re commend GI referral for direct visualization, if not performed recently. Pancreatic ductal dilation, possibly stricture in the setting of chronic pancreatitis. Reviewed by: [employer] on 06/06/2023 9:18 PM PST Approved by: [employer] on 06/06/2023 9:18 PM PST Station ID: [email or web address]
[2023-06-06 21:27] VITALS: BP 169/102; O2SAT 94
[2023-06-06] MEDS: oxyCODONE/ACET 5/325 Prepack 4 PO STA (21:45)
[2023-06-06] MEDS: LIDOCAINE VISCOUS 2% 15 ML ORAL SYRINGE MM STA (22:19)
== END 2023-06-06 22:19 | disposition home or self-care (01) ==
LOC: EDUNIT# → ED 17:27
DX: K86.0 Alcohol-induced chronic pancreatitis (principal); K29.50 Unspecified chronic gastritis without bleeding; I10 Essential (primary) hypertension; F17.200 Nicotine dependence, unspecified, uncomplicated; Z79.899 Other long term (current) drug therapy
CPT/HCPCS: 36415; 80053; 80320; 83690; 85025; 96374; 96375; 96376; 99284

== ENCOUNTER 2023-06-26 17:15 | Emergency (ER) | payer OTHER ==
[2023-06-26 17:35] LABS: BASOPHILS # (AUTO) 0.1 10^3/uL (0.0-0.1); BASOPHILS % (AUTO) 0.5 %; EOSINOPHILS # (AUTO) 0.7 10^3/uL (0.0-0.7); EOSINOPHILS % (AUTO) 4.8 %; HCT - HEMATOCRIT 44.2 % (42.0-52.0); HGB - HEMOGLOBIN 14.6 g/dL (14.0-18.0); LYMPHOCYTES # (AUTO) 3.5 10^3/uL (1.5-3.5); LYMPHOCYTES % (AUTO) 22.6 %; MEAN CORPUSCULAR HEMOGLOBIN 33.2 pg (27.0-31.0); MEAN CORPUSCULAR VOLUME 100.5 fL (80.0-94.0); MEAN PLATELET VOLUME 8.6 fL (7.4-11.4); MONOCYTES % (AUTO) 6.3 %; NEUTROPHILS # (AUTO) 10.1 10^3/uL (1.5-6.6); NEUTROPHILS % (AUTO) 65.5 %; PLT - PLATELET COUNT 392 10^3/uL (130-450); RED CELL DISTRIBUTION WIDTH 12.9 % (12.0-15.0); WHITE BLOOD COUNT 15.5 x10^3/uL (4.8-10.8)
[2023-06-26 17:51] LABS: ALBUMIN 4.4 g/dL (3.2-5.5); ALBUMIN/GLOBULIN RATIO 1.8 (1.0-2.2); BILIRUBIN,TOTAL 0.3 mg/dL (0.2-1.0); CALCIUM 9.9 mg/dL (8.5-10.3); CREATININE 0.7 mg/dL (0.6-1.3); POTASSIUM 3.9 mmol/L (3.5-4.5); TOTAL PROTEIN 6.9 g/dL (6.4-8.9)
[2023-06-26] MEDS ORDERED: SODIUM CHLORIDE 0.9% 1,000 ML IV STA ×2 (18:22→19:45)
[2023-06-26] MEDS ORDERED: HYDROmorphone 1 MG/ML CARPUJECT IVP STA ×2 (18:22→19:30)
[2023-06-26 18:45] LABS: CLARITY,URINE CLEAR (CLEAR); GLUCOSE, URINE (UA) NEGATIVE (NEGATIVE); KETONES,URINE (UA) TRACE mg/dL (NEGATIVE); LEUKOCYTE ESTERASE, URINE NEGATIVE (NEGATIVE); NITRITE,URINE NEGATIVE (NEGATIVE); OCCULT BLOOD,URINE NEGATIVE (NEGATIVE); PROTEIN,URINE TRACE mg/dL (NEGATIVE); UROBILINOGEN,URINE 1 (NORMAL) E.U./dL (NORMAL)
[2023-06-26 18:49] LABS: BILIRUBIN,URINE NEGATIVE (NEGATIVE); ICTOTEST,URINE NEGATIVE
[2023-06-26] MEDS ORDERED: SUCRALFATE 1 GM/10 ML UDC PO STA (19:30)
[2023-06-26] MEDS ORDERED: MAG HYDROX/AL HYDROX/SIMETH 30 ML UDC PO STA (19:31)
[2023-06-26] MEDS ORDERED: FAMOTIDINE 20 MG TABLET PO STA (19:31)
[2023-06-26] MEDS ORDERED: LIDOCAINE VISCOUS 2% 15 ML UDC MM STA (19:31)
[2023-06-26 20:13] VITALS: O2SAT 98
--- NOTE | 2023-06-26 20:29 | ED Physician Documentation ---
History of Present Illness - Stated complaint Stated Complaint: ABD PX/VOMIT - Chief complaint Chief Complaint: Abd Pain - History obtained from History obtained from: Patient - History of Present Illness Timing: How many weeks ago (4) Pain level max: 9 Pain level now: 9 - Additonal information Additional information: 47-year-old male with a history of alcoholic pancreatitis presents to the emergency department with recurrent abdominal pain. Ongoing for the past several weeks. He states that he has quit drinking but still smokes regularly. Smokes cigarettes. No fevers. No chills. He has been diagnosed with gastritis as well and is taking Protonix. No diarrhea or constipation. No active vomiting. The pain is worse with eating and drinking. Pain is epigastric, nonradiating. Review of Systems Constitutional: denies: Fever, Chills Cardiac: denies: Chest pain / pressure, Palpitations Respiratory: denies: Dyspnea, Cough Skin: denies: Rash Musculoskeletal: denies: Neck pain, Back pain Neurologic: denies: Headache PD PAST MEDICAL HISTORY - Past Medical History Past Medical History: Yes Cardiovascular: Hypertension Respiratory: None Neuro: None Endocrine/Autoimmune: None GI: Pancreatitis, Other : None HEENT: None Psych: Anxiety, Other Musculoskeletal: Chronic back pain, Other Derm: Other - Past Surgical History Past Surgical History: No HEENT: Myringotomy (tubes) - Present Medications Home Medications: Ambulatory Orders Medication Instructions Recorded Confirmed Gabapentin [Neurontin] 300 mg PO BID 10/17/21 06/26/23 Propranolol HCl 20 mg PO BID PRN 10/17/21 06/26/23 Dicyclomine [Bentyl] 10 mg PO TID PRN 02/23/22 06/26/23 amLODIPine [Norvasc] 5 mg PO DAILY #30 tablet 02/26/22 06/26/23 Lisinopril [Zestril] 20 mg PO DAILY 02/01/23 06/26/23 Pantoprazole Sodium [Protonix] 40 mg PO DAILY #30 tab 06/06/23 06/26/23 Famotidine [Pepcid] 20 mg PO BID #60 tablet 06/26/23 HYDROmorphone [Dilaudid] 2 mg PO Q6H PRN #14 tablet 06/26/23 Lipase/Protease/Amylase 1 tab PO TIDWM 06/26/23 06/26/23 [Pancrelipase Dr 5,000/17,000/24,000 Intermediate] Sucralfate [Carafate] 1 gm PO ACHS #60 tablet 06/26/23 - Allergies Allergies/Adverse Reactions: Allergies Allergy/AdvReac Type Severity Reaction Status Date / Time No Known Drug Allergies Allergy Verified 06/26/23 17:22 - Social History Does the pt smoke?: Yes Smoking Status: Current every day smoker Does the pt drink ETOH?: No Does the pt have substance abuse?: No - Immunizations Immunizations are current?: Yes - POLST Patient has POLST: No POLST Status: Full Code PD ED PE NORMAL - Vitals Vital signs reviewed: Yes - General General: Alert and oriented X 3, No acute distress - HEENT HEENT: Moist mucous membranes - Neck Neck: Supple, no meningeal sign - Cardiac Cardiac: RRR, Strong equal pulses - Respiratory Respiratory: No respiratory distress, Clear bilaterally - Abdomen Abdomen: Soft, Non distended, Other (TTP epigastric without peritoneal signs) - Back Back: No spinal TTP - Derm Derm: Warm and dry - Extremities Extremities: No edema, No calf tenderness / cord - Neuro Neuro: Alert and oriented X 3 - Psych Psych: Normal mood, Normal affect Results - Vitals Vitals: Vital Signs - 24 hr 06/26/23 06/26/23 06/26/23 17:18 20:00 20:30 Temperature 36.7 C Heart Rate 85 80 81 Respiratory 16 16 16 Rate Blood Pressure 145/104 H 128/95 H 144/98 H O2 Saturation 100 98 97 06/26/23 21:08 Temperature Heart Rate 79 Respiratory 16 Rate Blood Pressure 147/101 H O2 Saturation 98 Oxygen O2 Source Room air - Labs Labs: Laboratory Tests 06/26/23 06/26/23 06/26/23 17:23 17:30 17:30 WBC 15.5 H RBC 4.40 L Hgb 14.6 Hct 44.2 MCV 100.5 H MCH 33.2 H MCHC 33.0 RDW 12.9 Plt Count 392 MPV 8.6 Neut # (Auto) 10.1 H Lymph # (Auto) 3.5 [place] # (Auto) 1.0 Eos # (Auto) 0.7 Baso # (Auto) 0.1 Absolute Nucleated RBC 0.00 Nucleated RBC % 0.0 Sodium 137 Potassium 3.9 Chloride 101 Carbon Dioxide 29 Anion Gap 7.0 BUN 8 Creatinine 0.7 Estimated GFR (MDRD) 121 Glucose 112 H Calcium 9.9 Total Bilirubin 0.3 AST 12 ALT 7 L Alkaline Phosphatase 60 Total Protein 6.9 Albumin 4.4 Globulin 2.5 Albumin/Globulin Ratio 1.8 Triglycerides Lipase 514 H Urine Color DARK YELLOW Urine Clarity CLEAR Urine pH 6.0 Ur Specific [place] 1.025 Urine Protein TRACE Urine Glucose (UA) NEGATIVE Urine Ketones TRACE Urine Occult Blood NEGATIVE Urine Nitrite NEGATIVE Urine Bilirubin NEGATIVE Urine Urobilinogen 1 (NORMAL) Ur Leukocyte Esterase NEGATIVE Ur Microscopic Review NOT INDICATED Urine Culture Comments NOT INDICATED Ethyl Alcohol 06/26/23 06/26/23 17:30 17:30 WBC RBC Hgb Hct MCV MCH MCHC RDW Plt Count MPV Neut # (Auto) Lymph # (Auto) [place] # (Auto) Eos # (Auto) Baso # (Auto) Absolute Nucleated RBC Nucleated RBC % Sodium Potassium Chloride Carbon Dioxide Anion Gap BUN Creatinine Estimated GFR (MDRD) Glucose Calcium Total Bilirubin AST ALT Alkaline Phosphatase Total Protein Albumin Globulin Albumin/Globulin Ratio Triglycerides 169 Lipase Urine Color Urine Clarity Urine pH Ur Specific [place] Urine Protein Urine Glucose (UA) Urine Ketones Urine Occult Blood Urine Nitrite Urine Bilirubin Urine Urobilinogen Ur Leukocyte Esterase Ur Microscopic Review Urine Culture Comments Ethyl Alcohol < 10.0 PD Medical Decision Making - ED course Complexity details: reviewed results, re-evaluated patient (Abdomen is soft, nontender nondistended. Patient request to go home at this time. Tolerating p.o. without difficulty), considered differential, d/w patient ED course: 47-year-old male with chronic recurrent pancreatitis. He was counseled to stop smoking as this may be contributing to his chronic pancreatitis. Triglycerides are normal. He has been refraining from alcohol. Given IV fluids. He was also given a GI cocktail which helped his gastritis pain. We will add Carafate and Pepcid onto his home medications. Patient is well-appearing, nontoxic. Afebrile. IV Dilaudid resolved his pain. His lipase is 500. Recommend that he continue his current medications at home, discussed with his doctor potentially changing lisinopril as this could contribute to pancreatitis as well. I feel that the most benefit would be from stopping his smoking and tobacco use. Patient counseled regarding signs and symptoms for which I believe and urgent re-evaluation would be necessary. Patient with good understanding of and agreement to plan and is comfortable going home at this time This document was made in part using voice recognition software. While efforts are made to proofread this document, sound alike and grammatical errors may occur. Departure - Departure Disposition: 01 Home, Self Care Clinical Impression: Chronic pancreatitis Qualifiers: Pancreatitis type: unspecified pancreatitis type Qualified Code(s): K86.1 - Other chronic pancreatitis Condition: Good Instructions: ED Pancreatitis Follow-Up: HUDSON OLMEDO MD [Primary Care Provider] - Prescriptions: Sucralfate [Carafate] 1 gm PO ACHS #60 tablet HYDROmorphone [Dilaudid] 2 mg PO Q6H PRN #14 tablet PRN Reason: Abdominal Pain Famotidine [Pepcid] 20 mg PO BID #60 tablet Comments: Your prescriptions were sent to [facility] in [place]. Please drink plenty of water. A liquid diet for the next 24 hours may help as well. Continue your current medications at home. As we discussed smoking can be heavily associated with chronic pancreatitis as well as gastritis, would recommend stopping smoking if you are able as this will likely help both of your issues. Please return if you worsen. I am prescribing a short course of narcotic pain medication for you. These are potentially dangerous and addictive medications that should be used carefully. These medications may constipate you. Take an [id number] stool softener (docusate) twice daily with plenty of water while taking these medications. If you go 24 hours without a bowel movement, take [id number] miralax, per package instructions. Do not drink or drive while taking these medications. If you received narcotic or sedating medications while in the emergency department, do not drive for 24 hours. Store this medication in a safe, secure place and out of reach of children. It is a violation of federal law to give or sell this medication to another person or to use in a manner other than prescribed. The ED will not refill narcotic prescriptions, including prescriptions lost or stolen. To dispose of unwanted medications: 1. [facility] at [address] in [place] has a medication drop box. They accept prescription medications (in pill form) Tuesday through Tuesday 9:00 a.m. to 5:00 p.m. 2. [facility] [employer] accepts prescription medications (in pill form only) for disposal year round. Call for more information. 3. Contact the [facility] for the next [facility] sponsored prescription drug collection event. , [phone], or [phone]; Forms: PCP List Discharge Date/Time: 06/26/23 21:12
[2023-06-26] MEDS ORDERED: oxyCODONE/ACET 5/325 Prepack 4 PO STA (21:02)
[2023-06-26 21:16] VITALS: BP 147/101
== END 2023-06-26 21:12 | disposition home or self-care (01) ==
LOC: ED 17:15
DX: K86.1 Other chronic pancreatitis (principal); I10 Essential (primary) hypertension; F17.200 Nicotine dependence, unspecified, uncomplicated
CPT/HCPCS: 36415; 80053; 80320; 81003; 83690; 84478; 85025; 96374; 96375; 99283; A9270; J1170; 81001; 87086

== ENCOUNTER 2023-07-25 17:31 | Emergency (ER) | payer OTHER ==
--- NOTE | 2023-07-25 18:23 | ED Physician Documentation ---
PD HPI ABD PAIN - Stated complaint Stated Complaint: ABD PX/VOMIT - Chief complaint Chief Complaint: Abd Pain - History obtained from History obtained from: Patient - History of Present Illness Timing - onset: How many days ago (3-4) Timing - duration: Days Timing - details: Gradual onset, Still present (worse since yesterday with vomiting now and severe pain.) Quality: Cramping, Aching, Pain Location: RUQ, Epigastric Radiation: Lower back. No: Chest Improved by: No: Eating, Vomiting Worsened by: Eating, Moving, Palpation. No: Breathing Associated symptoms: Nausea, Vomiting. No: Fever, Diarrhea, Constipation, Dysuria Similar symptoms before: Diagnosis (has had pancreatitis in the past.) Review of Systems Constitutional: denies: Fever, Chills Nose: denies: Rhinorrhea / runny nose, Congestion Throat: denies: Sore throat Respiratory: denies: Cough PD PAST MEDICAL HISTORY - Past Medical History Past Medical History: Yes Cardiovascular: Hypertension Respiratory: None Neuro: None Endocrine/Autoimmune: None GI: Ulcers, Pancreatitis, Other : None HEENT: None Psych: Anxiety, Other Musculoskeletal: Chronic back pain, Other Derm: Other - Past Surgical History Past Surgical History: Yes HEENT: Myringotomy (tubes) - Present Medications Home Medications: Ambulatory Orders Medication Instructions Recorded Confirmed Gabapentin [Neurontin] 300 mg PO BID 10/17/21 07/25/23 Propranolol HCl 20 mg PO BID PRN 10/17/21 07/25/23 Dicyclomine [Bentyl] 10 mg PO TID PRN 02/23/22 07/25/23 amLODIPine [Norvasc] 5 mg PO DAILY #30 tablet 02/26/22 07/25/23 Lisinopril [Zestril] 20 mg PO DAILY 02/01/23 07/25/23 Pantoprazole Sodium [Protonix] 40 mg PO DAILY #30 tab 06/06/23 07/25/23 Famotidine [Pepcid] 20 mg PO BID #60 tablet 06/26/23 Lipase/Protease/Amylase 1 tab PO TIDWM 06/26/23 07/25/23 [Pancrelipase Dr 5,000/17,000/24,000 Snf] Sucralfate [Carafate] 1 gm PO ACHS #60 tablet 06/26/23 07/25/23 Losartan [Cozaar] 50 mg PO DAILY #30 tablet 07/25/23 - Allergies Allergies/Adverse Reactions: Allergies Allergy/AdvReac Type Severity Reaction Status Date / Time No Known Drug Allergies Allergy Verified 07/25/23 17:41 - Social History Does the pt smoke?: Yes Smoking Status: Current every day smoker Does the pt drink ETOH?: No Does the pt have substance abuse?: Yes Substance Use and Type: CBD oil / Products - Immunizations Immunizations are current?: Yes - POLST Patient has POLST: No POLST Status: Full Code PD ED PE NORMAL - Vitals Vital signs reviewed: Yes - General General: Alert and oriented X 3, Well developed/nourished, Other (appears very uncomfortable due to upper abd pain, holding upper abd with knees drawn up. ) - HEENT HEENT: PERRL (nonicteric) - Neck Neck: Supple, no meningeal sign - Cardiac Cardiac: No murmur. No: RRR (regular but tachycardic) - Abdomen Abdomen: Normal bowel sounds, Soft, Non distended, No organomegaly, Other (very tender with guarding upper abd and epigastric area. Lower abd not tender. ) - Back Back: No CVA TTP - Derm Derm: Normal color, Warm and dry - Extremities Extremities: No edema, No calf tenderness / cord - Neuro Neuro: Alert and oriented X 3, No motor deficit, Normal speech Results - Vitals Vitals: Vital Signs - 24 hr 07/25/23 07/25/23 07/25/23 17:41 19:45 20:00 Temperature 37.1 C Heart Rate 105 H 91 85 Respiratory 18 19 16 Rate Blood Pressure 149/103 H 136/92 H 124/97 H O2 Saturation 99 96 97 Oxygen O2 Source Room air - Labs Labs: Laboratory Tests 07/25/23 07/25/23 18:55 18:55 WBC 19.0 H RBC 4.97 Hgb 15.9 Hct 46.5 MCV 93.6 MCH 32.0 H MCHC 34.2 RDW 12.4 Plt Count 314 MPV 8.8 Neut # (Auto) 15.8 H Lymph # (Auto) 2.3 [place] # (Auto) 0.7 Eos # (Auto) 0.1 Baso # (Auto) 0.1 Absolute Nucleated RBC 0.00 Nucleated RBC % 0.0 Sodium 137 Potassium 4.1 Chloride 99 L Carbon Dioxide 28 Anion Gap 10.0 BUN 9 Creatinine 0.7 Estimated GFR (MDRD) 121 Glucose 124 H Calcium 9.6 Magnesium 1.5 L Total Bilirubin 0.8 AST 12 ALT 12 Alkaline Phosphatase 79 Total Protein 7.2 Albumin 4.4 Globulin 2.8 Albumin/Globulin Ratio 1.6 Lipase 365 H PD Medical Decision Making - ED course Complexity details: reviewed old records (has had prior ER visits for similar symptoms. Typically is treated and improves enough for discharge. ), reviewed results, re-evaluated patient, considered differential (history of chronic pancreatitis initially related to alchol disorder. States has not had alcohol for 4 months and still continues with pains and flare ups. No unusual foods recently. Has had increased pain over baseline the past 4-5 days, worsening and now voimiting. ), d/w patient ED course: care at change of shift to Dr. Bob. Pt was having less pain and not vomiting at time of shift change. Labs showing elevated lipase. Still to see if improved enough for discharge. Pt and I did talk about his concern for repeated and ongoing pancreatic problems even though has not drank awhile. This could be just ongoing chronic inflammation. However he is taking some meds that are associated with pancreatitis: Pantoprazole and Lisinopril. Can have his stop/change from these m eds. Departure - Departure Forms: PCP List
[2023-07-25] MEDS ORDERED: ONDANSETRON 4 MG/2 ML VIAL IVP STA (18:42)
[2023-07-25] MEDS ORDERED: KETOROLAC 15 MG/ML VIAL IVP STA (18:42)
[2023-07-25] MEDS ORDERED: SODIUM CHLORIDE 0.9% 1,000 ML IV STA (18:42)
[2023-07-25] MEDS ORDERED: HYDROmorphone 1 MG/ML CARPUJECT IVP STA ×2 (18:42→20:05)
[2023-07-25] MEDS ORDERED: THIAMINE INJ 100 MG in SODIUM CHLORIDE 0.9% 50 ML IV STA (18:45)
[2023-07-25] MEDS ORDERED: THIAMINE 100 MG/1 ML 2 ML MDV ONE (18:58)
[2023-07-25 19:01] LABS: BASOPHILS # (AUTO) 0.1 10^3/uL (0.0-0.1); BASOPHILS % (AUTO) 0.3 %; EOSINOPHILS # (AUTO) 0.1 10^3/uL (0.0-0.7); EOSINOPHILS % (AUTO) 0.7 %; HCT - HEMATOCRIT 46.5 % (42.0-52.0); HGB - HEMOGLOBIN 15.9 g/dL (14.0-18.0); LYMPHOCYTES # (AUTO) 2.3 10^3/uL (1.5-3.5); LYMPHOCYTES % (AUTO) 11.9 %; MEAN CORPUSCULAR HGB CONC 34.2 g/dL (32.0-36.0); MEAN CORPUSCULAR VOLUME 93.6 fL (80.0-94.0); MEAN PLATELET VOLUME 8.8 fL (7.4-11.4); MONOCYTES # (AUTO) 0.7 10^3/uL (0.0-1.0); MONOCYTES % (AUTO) 3.4 %; NEUTROPHILS # (AUTO) 15.8 10^3/uL (1.5-6.6); NEUTROPHILS % (AUTO) 83.2 %; PLT - PLATELET COUNT 314 10^3/uL (130-450); RED BLOOD COUNT 4.97 10^6/uL (4.70-6.10); RED CELL DISTRIBUTION WIDTH 12.4 % (12.0-15.0)
[2023-07-25 19:14] LABS: ALBUMIN 4.4 g/dL (3.2-5.5); ALBUMIN/GLOBULIN RATIO 1.6 (1.0-2.2); BILIRUBIN,TOTAL 0.8 mg/dL (0.2-1.0); CALCIUM 9.6 mg/dL (8.5-10.3); CREATININE 0.7 mg/dL (0.6-1.3); MAGNESIUM 1.5 mg/dL (1.7-2.3); POTASSIUM 4.1 mmol/L (3.5-4.5); TOTAL PROTEIN 7.2 g/dL (6.4-8.9)
[2023-07-25] MEDS ORDERED: HYDROcod/ACET 5/325 Prepack 4 PO STA (23:16)
[2023-07-25 23:41] VITALS: BP 134/100; O2SAT 96
--- NOTE | 2023-08-09 09:01 | ED Physician Documentation ---
ED Addendum - Addendum Addendum: 08/09/23 08:58 The pt was signed out to me at change of shift, pending symptomatic improvement, after presenting with a typical flare of his chronic abdominal pain. The pt has a long-standing h/o chronic pancreatitis, and is well-known to our ED for this. He is also working with specialists as an outpatient. The pt had a mildly elevated lipase today, as well as a leukocytosis at 19, but was afebrile, and with a nonacute abdominal exam. The pt has had many CT scans, and I felt that at this time, given his relatively reassuring exam, another CT did not need to be performed emergently. Symptomatic treatment had been initiated by my colleague prior to signout to me. The pt was feeling better, but still in a little bit of pain. He felt he would be good to go home with one more dose of analgesia. I did order this for him. We have discussed home management of the sx, as well as the usual indications for return. Final Impression: 1. Acute exacerbation of chronic pancreatitis 2. Abdominal pain Disposition: Home in stable and improved condition. 08/09/23 09:01
== END 2023-07-25 23:32 | disposition home or self-care (01) ==
LOC: ED 17:31
DX: K86.1 Other chronic pancreatitis (principal); I10 Essential (primary) hypertension; F17.200 Nicotine dependence, unspecified, uncomplicated
CPT/HCPCS: 36415; 80053; 83690; 83735; 84425; 85025; 96365; 96375; 96376; 99284; 99285; J1170; J3411; J7040

== ENCOUNTER 2023-10-28 21:53 | Outpatient (CLI) | payer OTHER | END 2023-10-28 23:59 | disposition short-term general hospital (02) | LOC: EMS 21:53 | DX: R55 Syncope and collapse (principal); R19.5 Other fecal abnormalities; R61 Generalized hyperhidrosis; R10.84 Generalized abdominal pain; R10.817 Generalized abdominal tenderness | CPT/HCPCS: A0425; A0427 ==

== ENCOUNTER 2024-01-04 18:24 | Inpatient (IN) | payer OTHER ==
[2024-01-04 18:56] LABS: BASOPHILS # (AUTO) 0.1 10^3/uL (0.0-0.1); BASOPHILS % (AUTO) 0.3 %; EOSINOPHILS # (AUTO) 0.4 10^3/uL (0.0-0.7); EOSINOPHILS % (AUTO) 2.1 %; HCT - HEMATOCRIT 43.6 % (42.0-52.0); HGB - HEMOGLOBIN 13.9 g/dL (14.0-18.0); LYMPHOCYTES # (AUTO) 2.5 10^3/uL (1.5-3.5); LYMPHOCYTES % (AUTO) 13.8 %; MEAN CORPUSCULAR HEMOGLOBIN 27.9 pg (27.0-31.0); MEAN CORPUSCULAR HGB CONC 31.9 g/dL (32.0-36.0); MEAN CORPUSCULAR VOLUME 87.6 fL (80.0-94.0); MEAN PLATELET VOLUME 9.2 fL (7.4-11.4); MONOCYTES % (AUTO) 5.6 %; NEUTROPHILS # (AUTO) 13.8 10^3/uL (1.5-6.6); NEUTROPHILS % (AUTO) 77.8 %; PLT - PLATELET COUNT 340 10^3/uL (130-450); RED BLOOD COUNT 4.98 10^6/uL (4.70-6.10); RED CELL DISTRIBUTION WIDTH 14.5 % (12.0-15.0); WHITE BLOOD COUNT 17.8 x10^3/uL (4.8-10.8)
[2024-01-04] MEDS ORDERED: iohexoL-300 100 ML VIAL ONE (19:04)
[2024-01-04] MEDS: SODIUM CHLORIDE 0.9% 1,000 ML IV ONE (19:18)
[2024-01-04] MEDS: ONDANSETRON 4 MG/2 ML VIAL IVP STA (19:18)
[2024-01-04 19:27] LABS: ALBUMIN 4.4 g/dL (3.2-5.5); ALBUMIN/GLOBULIN RATIO 1.4 (1.0-2.2); ALKALINE PHOSPHATASE 100 IU/L (42-121); ALT ALANINE AMINOTRANSFERASE 7 IU/L (10-60); AST ASPARTATE AMINOTRANSFERASE 14 IU/L (10-42); BILIRUBIN,TOTAL 0.9 mg/dL (0.2-1.0); BUN - BLOOD UREA NITROGEN 8 mg/dL (6-20); CALCIUM 9.5 mg/dL (8.5-10.3); CARBON DIOXIDE - CO2 26 mmol/L (21-32); CHLORIDE 101 mmol/L (101-111); CREATININE 0.7 mg/dL (0.6-1.3); ETOH - ETHANOL < 10.0 mg/dL; GFR - MDRD 120 (>89); GLUCOSE 116 mg/dL (74-104); LIPASE 480 U/L (11-82); MAGNESIUM 1.5 mg/dL (1.7-2.3); POTASSIUM 3.7 mmol/L (3.5-4.5); SODIUM 136 mmol/L (135-145); TOTAL PROTEIN 7.5 g/dL (6.4-8.9)
--- NOTE | 2024-01-04 19:27 | ED Physician Documentation ---
PD HPI ABD PAIN - Stated complaint Stated Complaint: ABD/BACK PX - Chief complaint Chief Complaint: Abd Pain - Additional information Additional information: 48-year-old male with history of hypertension, alcohol dependence, chronic pancreatitis, gastric ulcers, anxiety presents emergency department for midepigastric pain. Patient says that he normally takes pain medications for his pancreatitis but he recently ran out last night and has been having a hard time controlling his pain on top of persistent nausea and vomiting. He was recently hospitalized at [facility] for pancreatitis. PD PAST MEDICAL HISTORY - Past Medical History Past Medical History: Yes Cardiovascular: Hypertension Respiratory: None Neuro: None Endocrine/Autoimmune: None GI: Ulcers, Pancreatitis, Other : None HEENT: None Psych: Anxiety, Other Musculoskeletal: Chronic back pain, Other Derm: Other - Past Surgical History Past Surgical History: Yes HEENT: Myringotomy (tubes) - Present Medications Home Medications: Ambulatory Orders Medication Instructions Recorded Confirmed Gabapentin [Neurontin] 300 mg PO BID 10/17/21 07/25/23 Propranolol HCl 20 mg PO BID PRN 10/17/21 07/25/23 Dicyclomine [Bentyl] 10 mg PO TID PRN 02/23/22 07/25/23 amLODIPine [Norvasc] 5 mg PO DAILY #30 tablet 02/26/22 07/25/23 Lisinopril [Zestril] 20 mg PO DAILY 02/01/23 07/25/23 Pantoprazole Sodium [Protonix] 40 mg PO DAILY #30 tab 06/06/23 07/25/23 Famotidine [Pepcid] 20 mg PO BID #60 tablet 06/26/23 Lipase/Protease/Amylase 1 tab PO TIDWM 06/26/23 07/25/23 [Pancrelipase Dr 5,000/17,000/24,000 Longterm] Sucralfate [Carafate] 1 gm PO ACHS #60 tablet 06/26/23 07/25/23 HYDROcod/ACETAM 5/325 [Orestes 5/325] 1 - 2 tablet PO Q6H PRN #14 tablet 07/25/23 Losartan [Cozaar] 50 mg PO DAILY #30 tablet 07/25/23 - Allergies Allergies/Adverse Reactions: Allergies Allergy/AdvReac Type Severity Reaction Status Date / Time No Known Drug Allergies Allergy Verified 01/04/24 18:40 - Social History Does the pt smoke?: Yes Smoking Status: Current every day smoker Does the pt drink ETOH?: No Does the pt have substance abuse?: Yes - Immunizations Immunizations are current?: Yes - POLST Patient has POLST: No POLST Status: Full Code PD ED PE NORMAL - Vitals Vital signs reviewed: Yes - General General: Alert and oriented X 3, No acute distress, Well developed/nourished - Cardiac Cardiac: RRR - Respiratory Respiratory: No respiratory distress, Clear bilaterally - Abdomen Abdomen: Normal bowel sounds, Soft, No organomegaly, Other (Generalized abdominal tenderness mostly right upper quadrant and midepigastric) - Back Back: No CVA TTP - Derm Derm: Normal color, Warm and dry, No rash Results - Vitals Vitals: Vital Signs - 24 hr 01/04/24 01/04/24 18:37 19:33 Temperature 37.0 C Heart Rate 97 82 Respiratory 20 18 Rate Blood Pressure 146/99 H 170/109 H O2 Saturation 99 100 Oxygen O2 Source Room air - Labs Labs: Laboratory Tests 01/04/24 01/04/24 01/04/24 18:50 18:50 18:50 WBC 17.8 H RBC 4.98 Hgb 13.9 L Hct 43.6 MCV 87.6 MCH 27.9 MCHC 31.9 L RDW 14.5 Plt Count 340 MPV 9.2 Neut # (Auto) 13.8 H Lymph # (Auto) 2.5 [place] # (Auto) 1.0 Eos # (Auto) 0.4 Baso # (Auto) 0.1 Absolute Nucleated RBC 0.00 Nucleated RBC % 0.0 Sodium 136 Potassium 3.7 Chloride 101 Carbon Dioxide 26 Anion Gap 9.0 BUN 8 Creatinine 0.7 Estimated GFR (MDRD) 120 Glucose 116 H Calcium 9.5 Magnesium 1.5 L Total Bilirubin 0.9 AST 14 ALT 7 L Alkaline Phosphatase 100 Troponin I High Sens 3.2 Total Protein 7.5 Albumin 4.4 Globulin 3.1 Albumin/Globulin Ratio 1.4 Lipase 480 H Ethyl Alcohol < 10.0 - Rads (name of study) abdominal pelvis w ct Relevant Findings:: Final report received, EMP independent interpretation of test, Other (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 Cystic lesion in the pancreatic tail new from prior. although both chronic occlusion of the splenic vein) PD Medical Decision Making - ED course ED course: 48-year-old male presents emergency department for persistent midepigastric and right upper quadrant abdominal pain. Labs are complete for further evaluation he appears to have a significant leukocytosis, 17.8 upon my lab review patient appears to be chronically elevated last white count was in July and it was found to be at 19.0. No anemia no electrolyte abnormalities magnesium slightly suppressed at 1.5 lipase significantly elevated at [address] scan was complete for further evaluation and he appears to have ongoing chronic pancreatitis. CT reveals that pancreatic necrosis of the pancreatic tail, cystic lesion of the pancreatic tail which appears to be new from prior imaging, abnormal enhancement Of the gastric wall similar to prior due to a similar cystic mass. 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 Patient had a very hard time controlling his pain here in the emergency department he was given a liter of IV fluids kept n.p.o. and given multiple doses of IV Dilaudid as well as IV Zofran and we are unable to successfully control his symptoms. Given that patient appears to be having acute on chronic pancreatitis he would benefit from bowel rest and pain management inpatient. I spoke with the on-call telemetry hospitalist Dr. Reyez who is graciously agreed to admit the patient for further hospitalization. patient is agreeable to stay. Departure - Departure Disposition: [facility] DC/Xfer Clinical Impression: Pancreatitis, Leukocytosis Forms: PCP List
[2024-01-04] MEDS: HYDROmorphone 0.5 MG/0.5 ML SYRINGE IVP STA ×2 (19:32→20:20)
[2024-01-04] MEDS: iohexoL-300 100 ML VIAL IVP ONE (19:47)
--- NOTE | 2024-01-04 19:57 | CT Report ---
PROCEDURE: Abdomen/Pelvis W INDICATIONS: LLQ and mid epogastric pain, hx of pancreatitis CONTRAST: 100ml [id number] TECHNIQUE: After the administration of intravenous contrast, a CT scan of the abdomen and pelvis was performed. Images were recorded and evaluated at appropriate window settings. Reformats: coronal and sagittal. F or radiation dose reduction, the following was used: automated exposure control, adjustment of mA and /or kV according to patient size. COMPARISON: 06/06/2023 FINDINGS: Image quality: Diagnostic. Lower chest: Unremarkable. Liver: Subcentimeter hypoattenuating liver lesions, too small to characterize by CT. Gallbladder: No radiopaque stones or wall thickening. Biliary tree: No intrahepatic or extrahepatic dilation, accounting for age. Spleen: No splenomegaly. Pancreas: Abnormal enhancement of the pancreatic tail, with low attenuation of the parenchyma. Cystic lesion within this region measuring 0.8 x 0.7 cm (series 2, image 41). Stable cystic lesion in the p ancreatic tail measuring 2.1 cm (series 2, image 41). Pancreatic ductal dilation and probable intradu ctal stone in the head of the pancreas measuring 0.5 cm. Adrenals: No adrenal nodule. Kidneys and ureters: No hydronephrosis. No renal cystic lesion which requires follow up. No solid mas s. Stomach, bowel and peritoneum: Hypoattenuation of the medial gastric wall, with mixed hyperattenuatin g and hypoattenuating contents within the stomach. No pathologic free fluid. Diverticulosis without e vidence of diverticulitis. Lymph nodes: No central or retroperitoneal adenopathy. Vessels: No infrarenal aortic aneurysm. Patent portal vein. The [place] splenic vein is occluded. Exte nsive portosystemic shunts in the left upper quadrant. PELVIS Reproductive organs: Unremarkable. Bladder: No abnormal wall thickening, accounting for underdistention. Pelvic lymph nodes: No pelvic adenopathy by size criteria. Bones: No aggressive osseous abnormality. Other: No significant ventral or inguinal hernia. 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 Alternatively, this could be acute interstitial p ancreatitis with edema giving the appearance of pancreatic hypoattenuation. Cystic lesion in the pancreatic tail, new from prior. Either representing acute necrotic collection o r acute peripancreatic collection, only measuring 0.8 x 0.7 cm. Abnormal enhancement of the gastric wall, a similar to prior, possibly due to a similar cystic mass w ithin or adjacent to the wall of the. Endoscopic evaluation is recommended to exclude malignancy. Chronic pancreatitis, with intraductal stone measuring 5 mm. This results in pancreatic ductal dilati on. Pseudocyst in the pancreatic tail measuring 2.1 cm, stable from prior. Chronic occlusion of the splenic vein, with associated portosystemic shunts. Reviewed by: Ponce Cleaning MD on 01/04/2024 7:56 PM PDT Approved by: Ponce Cleaning MD on 01/04/2024 7:56 PM PDT Station ID: [id number]
[2024-01-04] MEDS: HYDROmorphone 1 MG/ML CARPUJECT IVP STA (21:07)
[2024-01-04] MEDS ORDERED: ONDANSETRON 4 MG/2 ML VIAL IVP PRN (21:42)
[2024-01-04] MEDS ORDERED: SODIUM CHLORIDE FLUSH 0.9% 10 ML SYRINGE IVP PRN (21:42)
[2024-01-04] MEDS ORDERED: MORPHINE 2 MG/ML CARPUJECT IVP PRN (21:42)
--- NOTE | 2024-01-04 21:48 | HISTORY & PHYSICAL EXAMINATION ---
Chief Complaint - Chief Complaint Chief Complaint: abdominal pain History of Present Illness - Admitted From Admitted From:: ER - History Obtained From Records Reviewed: yes History obtained from: patient Exam Limitations: none - History of Present Illness HPI Comment/Other: 48 yo M who presented with abdominal pain. He relays he has had consistent stomach/pancreas issues. He had a recent adjustment in his medications including sucralfate and protonix, norco as needed. He ran out of his zenpep earlier in the week and he is waiting for it to be delivered to him. His episode this time started day before yesterday, he put himself on a chill diet and it worsened. He took his last norco and was able to sleep a little bit but when he woke up, he was drenched with sweat and had nausea, vomiting and worsened pain. Denies hematemesis. He developed diarrhea this morning. His last drink was 6/5 on his 's birthday. He saw a GI last but is frustrated because he felt like they did not do anything. In the ER, he received dilaudid, Zofran, IVF. History - Past Medical History Cardiovascular: reports: Hypertension Respiratory: reports: None Neuro: reports: None Endocrine/Autoimmune: reports: None GI: reports: Ulcers, Pancreatitis, Other : reports: None HEENT: reports: None Psych: reports: Anxiety, Other Musculoskeletal: reports: Chronic back pain, Other Derm: reports: Other MRSA Hx?: No - Past Surgical History HEENT: reports: Myringotomy (tubes) - Family & Social History Family History: Mother: Alive and Well (Three younger sisters all alive with no known medical issues), [place], Father: (Dad of heart disease ), Sister: Alive and Well Family History Comment/Other: His father has an unknown known cardiac history. His mother has a history abdominal pain which is believed to be related to dairy products. Living Situation: With family Social History Notes: He lives at home with his and child. He drinks 4 alcoholic beverages a night. He has been drinking for nearly 30 years but has quit at times for a few months. He has not been eating for about 6 months since he last quit. He does smoke about a pack a day for nearly 30 years as well. He no longer smokes marijuana. He denies any illicit drug use. - Substance History Use: Uses substance without health or social issues: Tobacco - POLST Patient has POLST: No POLST Status: Full Code Meds/Allgy - Home Medications Home Medications: Ambulatory Orders Medication Instructions Recorded Confirmed Gabapentin [Neurontin] 300 mg PO BID 10/17/21 07/25/23 Propranolol HCl 20 mg PO BID PRN 10/17/21 07/25/23 Dicyclomine [Bentyl] 10 mg PO TID PRN 02/23/22 07/25/23 amLODIPine [Norvasc] 5 mg PO DAILY #30 tablet 02/26/22 07/25/23 Lisinopril [Zestril] 20 mg PO DAILY 02/01/23 07/25/23 Pantoprazole Sodium [Protonix] 40 mg PO DAILY #30 tab 06/06/23 07/25/23 Famotidine [Pepcid] 20 mg PO BID #60 tablet 06/26/23 Lipase/Protease/Amylase 1 tab PO TIDWM 06/26/23 07/25/23 [Pancrelipase Dr 5,000/17,000/24,000 Half-Way] Sucralfate [Carafate] 1 gm PO ACHS #60 tablet 06/26/23 07/25/23 HYDROcod/ACETAM 5/325 [[place] 5/325] 1 - 2 tablet PO Q6H PRN #14 tablet 07/25/23 Losartan [Cozaar] 50 mg PO DAILY #30 tablet 07/25/23 - Allergies Allergies/Adverse Reactions: Allergies Allergy/AdvReac Type Severity Reaction Status Date / Time No Known Drug Allergies Allergy Verified 01/04/24 18:40 Review of Systems - All Other Systems All Other Systems: reports: Reviewed and negative - Other Findings Other Findings: A comprehensive ROS was completed, pertinent positives and negatives are noted in the HPI and all other systems reviewed negative. Prior Level of Functionality: ambulatory Exam - Vital Signs Reviewed Vital Signs: Yes Vital Signs: Vital Signs x48h Temp Pulse Resp BP Pulse Ox 01/04/24 19:33 82 18 170/109 H 100 01/04/24 18:37 37.0 C 97 20 146/99 H 99 - Physical Exam Comments/Other: General: awake, no acute distress Lungs: clear Heart: regular rate, rhythm Abdomen: Soft, +LUQ tenderness, nondistended, normal bowel sounds Musculoskeletal: Normal range of motion and strength, No tenderness Skin: Skin is warm, dry Neurologic: alert, oriented Psychiatric: appropriate mood and affect Conclusion/Plan - Lab Results Fish Bones: 01/04/24 18:50 01/04/24 18:50 - Diagnostic Imaging Results Diagnostic Imaging Results Comments: CT abd/pel: 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 Alternatively, t his could be acute interstitial pancreatitis with edema giving the appearance of pancreatic hypoattenuation. Cystic lesion in the pancreatic tail, new from prior. Either representing acute necrotic collection or acute peripancreatic collection, only measuring 0.8 x 0.7cm. Abnormal enhancement of the gastric wall, a similar to prior, possibly due to a similar cystic mass within or adjacent to the wall of the. Endoscopic evaluation is recommended to exclude malignancy. Chronic pancreatitis, with intraductal stone measuring 5mm. This results in pancreatic ductal dilation. 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 Chronic occlusion of the splenic vein, with associated portosystemic shunts. - Other Other Results/Comments: Assessment/Plan: 1. Acute on chronic pancreatitis - npo, prn morphine, zofran; IVF; necrosis is chronic per him 2. Hypomagnesemia - replace 3. HTN - cont home regimen once verified 4. Gastric ulcers - cont ppi, sucralfate 5. Alcohol dependence - etoh wnl on admission 6. Anxiety 7. Tobacco abuse - does not want nicoderm patch at this time 8. Overweight BMI 25.1 9. VTE prophylaxis lovenox 10. Dispo admit to med/surg Code status discussed, he wishes to be full code with chest compressions and i ntubation, if necessary. Discussed plan of care with patient and his bedside RN. Case discussed at length with ER provider. Notes reviewed. This H&P was accomplished using Telemedicine services via [facility] and assistance for bedside assessment was carried out, interpreted and reported to me by the bedside nurse. Time spent 75min educating /interviewing patient, reviewing chart and coordinating care for patient. Core Measures - Anticipated LOS I expect patient to be DC'd or transferred within 96 hours.: Yes - DVT/VTE - Prophylaxis VTE/DVT Device ordered at admit?: Yes Telemedicine Consult Details - Provider Location & Consult Time Telemedicine consultation conducted via videoconferencing?: Yes Telemedicine provider location:: [place]
[2024-01-04] MEDS ORDERED: MAGNESIUM SULFATE 1 GM/2 ML VIAL IVP ONE (22:00)
[2024-01-04] MEDS: SODIUM CHLORIDE 0.9% 1,000 ML IV SCH (22:42)
[2024-01-04] MEDS: HYDROmorphone 2 MG/ML VIAL IVP PRN (22:42)
[2024-01-04] MEDS: MAGNESIUM SULFATE 2 GRAM 1 GM/25 ML BAG IV SCH (22:47)
[2024-01-05] MEDS: SODIUM CHLORIDE FLUSH 0.9% 10 ML SYRINGE IVP SCH (00:38)
--- NOTE | 2024-01-05 01:23 | PROVIDER PROGRESS NOTE ---
Jukebox Checker Note - Jukebox Checker Note Jukebox Checker Note: Called by RN requesting to change Dilaudid 2 mg ivp to q 2hrs, new admit few hours ago, have added Dilaudid 1 mgivp x one dose + Benadryl 25 mg ivp x one dose for now and to continue pain meds as ordered.
[2024-01-05] MEDS: HYDROmorphone 1 MG/ML CARPUJECT IVP SCH (01:38)
[2024-01-05] MEDS: diphenhydrAMINE INJ 50 MG/ML VIAL IVP SCH (01:38)
--- NOTE | 2024-01-05 07:19 | PROVIDER PROGRESS NOTE ---
<Katherine Granda - Last Filed: 01/05/24 09:58> Subjective - Prog Note Date Prog Note Date: 01/05/24 Prog Note Time: 08:30 - Subjective Pt reports feeling: Improved (Pain is improving with IV Dilaudid.) Subjective: 48 year old male with a history of acute on chronic pancreatitis, intraductal pancreatic stone, alcohol dependence, hypertension, and gastric ulcers is being evaluated in the inpatient unit. The patient believes he is doing better overall - he reports diffuse 7-8/10 abdominal pain that has improved to 5/10 pain with Dilauded this morning. Despite having abdominal pain he is hungry. Last episode of vomiting was 1 day ago. Last bowel movement was 1 day ago - no straining. His last drink of of alcohol was 12/28/23; he has been trying to drink less consistently but will have 1-4 drinks of vodka and/or beer per day when he does drink. Patient stated he has been experiencing intermittent abdominal pain for the past 3-4 years; he experiences mild episodes of abdominal pain at least weekly. He has a flare of pancreatic abdominal pain that brings him in to a medical facility, usually [facility], every 1-4 months. He manages his pain at home with [place] that is prescribed by his PCP, Dr. Chari Bryan at the [facility]; he is prescribed 3 tabs of [place] 5mg at a time which he takes 0.5-1 tab as needed. Per patient, he was seen at [facility] in November 2023 after a hypotensive episode. He was hospitalized 4 days and evaluated for splenic vein thrombosis with 3 endoscopies, an MRI, and a CT. He then followed up with his PCP and a GI specialist at [facility]. Unable to access medical records. Denies hemoptysis, hematemesis, constipation, agitation, weight loss, fever. Current Medications - Current Medications Current Medications: Medications Ondansetron HCl (Ondansetron 4 Mg/2 Ml Vial) 4 mg IVP Q6HR PRN PRN Reason: Nausea / Vomiting Sodium Chloride (Normal Saline 0.9%) 1,000 mls @ 100 mls/hr IV .Q10H BENNIE Last Admin: 01/04/24 22:42 Dose: 100 mls/hr Diphenhydramine HCl (Diphenhydramine Inj 50 Mg/Ml Vial) 25 mg IVP ONCE BENNIE Stop: 01/06/24 01:59 Last Admin: 01/05/24 01:38 Dose: 25 mg Enoxaparin Sodium (Enoxaparin 40 Mg/0.4 Ml Syringe) 40 mg SUBQ DAILY [facility] Hydromorphone HCl (Hydromorphone 2 Mg/Ml Vial) 2 mg IVP Q4HR PRN PRN Reason: Abdominal Pain Last Admin: 01/04/24 22:42 Dose: 2 mg Magnesium Sulfate (Magnesium Sulfate) 1 gm in 25 mls @ 25 mls/hr IV ONCE BENNIE Stop: 01/05/24 22:59 Last Admin: 01/05/24 00:37 Dose: Infused Objective - Vital Signs/Intake & Output Reviewed Vital Signs: Yes Vital Signs: Vital Signs x48h Temp Pulse Resp BP Pulse Ox 01/05/24 00:58 36.8 C 75 18 131/94 H 99 Intake & Output: Intake & Output 01/02/24 01/03/24 01/04/24 01/05/24 23:59 23:59 23:59 23:59 Intake Total 1000 25 Balance 1000 25 - Objective General Appearance: positive: No acute distress Eyes Bilateral: positive: Normal inspection, PERRL ENT: positive: ENT inspection nml Neck: positive: Nml inspection Respiratory: positive: Chest non-tender, No respiratory distress, Breath sounds nml Cardiovascular: positive: Regular rate & rhythm, No murmur. negative: Tachycardia Abdomen: positive: Tenderness, Guarding (Diffuse abdominal pain to palpation. Mild guarding to deep palpation of LUQ. Negative Rasmussen's sign.) Back: positive: Nml inspection Skin: positive: Color nml, No rash, Dry, Other (No bruising). negative: Pallor Extremities: positive: Non-tender, Full ROM Neurologic/Psychiatric: positive: Oriented x3, Sensation nml, Mood/affect nml - Lab Results Fish Bones: 01/05/24 07:58 01/05/24 07:58 Other Labs: Lab Results x24hrs 01/04/24 01/04/24 01/04/24 Range/Units 21:53 18:50 18:50 WBC (4.8-10.8) x10^3/uL RBC (4.70-6.10) 10^6/uL Hgb (14.0-18.0) g/dL Hct (42.0-52.0) % MCV (80.0-94.0) fL MCH (27.0-31.0) pg MCHC (32.0-36.0) g/dL RDW (12.0-15.0) % Plt Count (130-450) 10^3/uL MPV (7.4-11.4) fL Neut # (Auto) (1.5-6.6) 10^3/uL Lymph # (Auto) (1.5-3.5) 10^3/uL [place] # (Auto) (0.0-1.0) 10^3/uL Eos # (Auto) (0.0-0.7) 10^3/uL Baso # (Auto) (0.0-0.1) 10^3/uL Absolute Nucleated RBC x10^3/uL Nucleated RBC % /100WBC Sodium 136 (135-145) mmol/L Potassium 3.7 (3.5-4.5) mmol/L Chloride 101 (101-111) mmol/L Carbon Dioxide 26 (21-32) mmol/L Anion Gap 9.0 (6-13) BUN 8 (6-20) mg/dL Creatinine 0.7 (0.6-1.3) mg/dL Estimated GFR (MDRD) 120 (>89) Glucose 116 H (74-104) mg/dL Calcium 9.5 (8.5-10.3) mg/dL Magnesium 1.5 L (1.7-2.3) mg/dL Total Bilirubin 0.9 (0.2-1.0) mg/dL AST 14 (10-42) IU/L ALT 7 L (10-60) IU/L Alkaline Phosphatase 100 (42-121) IU/L Troponin I High Sens 3.2 (2.3-19.7) ng/L Total Protein 7.5 (6.4-8.9) g/dL Albumin 4.4 (3.2-5.5) g/dL Globulin 3.1 (2.1-4.2) g/dL Albumin/Globulin Ratio 1.4 (1.0-2.2) Lipase 480 H (11-82) U/L Ethyl Alcohol < 10.0 < 10.0 mg/dL 01/04/24 Range/Units 18:50 WBC 17.8 H (4.8-10.8) x10^3/uL RBC 4.98 (4.70-6.10) 10^6/uL Hgb 13.9 L (14.0-18.0) g/dL Hct 43.6 (42.0-52.0) % MCV 87.6 (80.0-94.0) fL MCH 27.9 (27.0-31.0) pg MCHC 31.9 L (32.0-36.0) g/dL RDW 14.5 (12.0-15.0) % Plt Count 340 (130-450) 10^3/uL MPV 9.2 (7.4-11.4) fL Neut # (Auto) 13.8 H (1.5-6.6) 10^3/uL Lymph # (Auto) 2.5 (1.5-3.5) 10^3/uL [place] # (Auto) 1.0 (0.0-1.0) 10^3/uL Eos # (Auto) 0.4 (0.0-0.7) 10^3/uL Baso # (Auto) 0.1 (0.0-0.1) 10^3/uL Absolute Nucleated RBC 0.00 x10^3/uL Nucleated RBC % 0.0 /100WBC Sodium (135-145) mmol/L Potassium (3.5-4.5) mmol/L Chloride (101-111) mmol/L Carbon Dioxide (21-32) mmol/L Anion Gap (6-13) BUN (6-20) mg/dL Creatinine (0.6-1.3) mg/dL Estimated GFR (MDRD) (>89) Glucose (74-104) mg/dL Calcium (8.5-10.3) mg/dL Magnesium (1.7-2.3) mg/dL Total Bilirubin (0.2-1.0) mg/dL AST (10-42) IU/L ALT (10-60) IU/L Alkaline Phosphatase (42-121) IU/L Troponin I High Sens (2.3-19.7) ng/L Total Protein (6.4-8.9) g/dL Albumin (3.2-5.5) g/dL Globulin (2.1-4.2) g/dL Albumin/Globulin Ratio (1.0-2.2) Lipase (11-82) U/L Ethyl Alcohol mg/dL - Diagnostic Imaging Diagnostic Imaging Results: positive: Final report reviewed ABX Reporting Has patient been on IV antibiotics over the past 48 hours?: No Assessment/Plan - Problem List (1) Acute on chronic pancreatitis Impression: Patient reports improving diffuse abdominal pain rated at a pain scale of 5/10 on IV Dilaudid. The patient has acute on chronic pancreatitis likely due to biliary stones and alcohol use. CT from 01/04/24 revealed "pancreatic necrosis of the pancreatic tail, cystic lesion of the pancreatic tail which appears to be new from prior imaging, abnormal enhancement Of the gastric wall similar to prior due to a similar cystic mass. Chronic pancreatitis with intraductal stone measuring 5 mm, pseudo cyst of the pancreatic tail measuring 2.1 cm and a chronic occlusion of the splenic vein with associated portosystemic shunts." The patient has a 30 year history of alcohol use, currently about 4 drinks/night - last drink was 12/28/23. Negative alcohol level; no signs of alcohol withdrawal or intoxication. Increased IV hydromorphone from every 4 hours to every 3 hours for pain management. RUQ US ordered. Will consider transferring the patient to [facility] to pursue endoscopic management depending on the RUQ US results. (2) Abdominal pain Impression: See above. Qualifiers: Abdominal location: generalized Qualified Code(s): R10.84 - Generalized abdominal pain (3) Alcohol use disorder Impression: Patient is trying to decrease his alcohol use. He has 4 drinks of vodka and/or beer per day when he drinks - last drink was 12/28/23. Negative alcohol level; no signs of alcohol withdrawal or intoxication. <Sarah Sanchez - Last Filed: 01/05/24 17:29> Objective - Vital Signs/Intake & Output Vital Signs: Vital Signs x48h Temp Pulse Resp BP Pulse Ox 01/05/24 15:30 36.6 C 79 20 124/88 H 98 Intake & Output: Intake & Output 01/02/24 01/03/24 01/04/24 01/05/24 23:59 23:59 23:59 23:59 Intake Total 1000 1475 Balance 1000 1475 - Lab Results Fish Bones: 01/05/24 07:58 01/05/24 07:58 Other Labs: Lab Results x24hrs 01/05/24 01/05/24 01/04/24 Range/Units 07:58 07:58 21:53 WBC 10.7 (4.8-10.8) x10^3/uL RBC 4.34 L (4.70-6.10) 10^6/uL Hgb 12.1 L (14.0-18.0) g/dL Hct 38.1 L (42.0-52.0) % MCV 87.8 (80.0-94.0) fL MCH 27.9 (27.0-31.0) pg MCHC 31.8 L (32.0-36.0) g/dL RDW 14.6 (12.0-15.0) % Plt Count 249 (130-450) 10^3/uL MPV 9.2 (7.4-11.4) fL Neut # (Auto) 6.5 (1.5-6.6) 10^3/uL Lymph # (Auto) 2.6 (1.5-3.5) 10^3/uL [place] # (Auto) 0.8 (0.0-1.0) 10^3/uL Eos # (Auto) 0.8 H (0.0-0.7) 10^3/uL Baso # (Auto) 0.1 (0.0-0.1) 10^3/uL Absolute Nucleated RBC 0.00 x10^3/uL Nucleated RBC % 0.0 /100WBC Sodium 137 (135-145) mmol/L Potassium 3.6 (3.5-4.5) mmol/L Chloride 103 (101-111) mmol/L Carbon Dioxide 26 (21-32) mmol/L Anion Gap 8.0 (6-13) BUN 7 (6-20) mg/dL Creatinine 0.7 (0.6-1.3) mg/dL Estimated GFR (MDRD) 120 (>89) Glucose 95 (74-104) mg/dL Calcium 8.8 (8.5-10.3) mg/dL Magnesium 1.8 (1.7-2.3) mg/dL Total Bilirubin (0.2-1.0) mg/dL AST (10-42) IU/L ALT (10-60) IU/L Alkaline Phosphatase (42-121) IU/L Troponin I High Sens (2.3-19.7) ng/L Total Protein (6.4-8.9) g/dL Albumin (3.2-5.5) g/dL Globulin (2.1-4.2) g/dL Albumin/Globulin Ratio (1.0-2.2) Lipase (11-82) U/L Ethyl Alcohol < 10.0 mg/dL 01/04/24 01/04/24 01/04/24 Range/Units 18:50 18:50 18:50 WBC 17.8 H (4.8-10.8) x10^3/uL RBC 4.98 (4.70-6.10) 10^6/uL Hgb 13.9 L (14.0-18.0) g/dL Hct 43.6 (42.0-52.0) % MCV 87.6 (80.0-94.0) fL MCH 27.9 (27.0-31.0) pg MCHC 31.9 L (32.0-36.0) g/dL RDW 14.5 (12.0-15.0) % Plt Count 340 (130-450) 10^3/uL MPV 9.2 (7.4-11.4) fL Neut # (Auto) 13.8 H (1.5-6.6) 10^3/uL Lymph # (Auto) 2.5 (1.5-3.5) 10^3/uL [place] # (Auto) 1.0 (0.0-1.0) 10^3/uL Eos # (Auto) 0.4 (0.0-0.7) 10^3/uL Baso # (Auto) 0.1 (0.0-0.1) 10^3/uL Absolute Nucleated RBC 0.00 x10^3/uL Nucleated RBC % 0.0 /100WBC Sodium 136 (135-145) mmol/L Potassium 3.7 (3.5-4.5) mmol/L Chloride 101 (101-111) mmol/L Carbon Dioxide 26 (21-32) mmol/L Anion Gap 9.0 (6-13) BUN 8 (6-20) mg/dL Creatinine 0.7 (0.6-1.3) mg/dL Estimated GFR (MDRD) 120 (>89) Glucose 116 H (74-104) mg/dL Calcium 9.5 (8.5-10.3) mg/dL Magnesium 1.5 L (1.7-2.3) mg/dL Total Bilirubin 0.9 (0.2-1.0) mg/dL AST 14 (10-42) IU/L ALT 7 L (10-60) IU/L Alkaline Phosphatase 100 (42-121) IU/L Troponin I High Sens 3.2 (2.3-19.7) ng/L Total Protein 7.5 (6.4-8.9) g/dL Albumin 4.4 (3.2-5.5) g/dL Globulin 3.1 (2.1-4.2) g/dL Albumin/Globulin Ratio 1.4 (1.0-2.2) Lipase 480 H (11-82) U/L Ethyl Alcohol < 10.0 mg/dL
[2024-01-05 08:12] LABS: BASOPHILS # (AUTO) 0.1 10^3/uL (0.0-0.1); BASOPHILS % (AUTO) 0.5 %; EOSINOPHILS # (AUTO) 0.8 10^3/uL (0.0-0.7); EOSINOPHILS % (AUTO) 7.3 %; HCT - HEMATOCRIT 38.1 % (42.0-52.0); HGB - HEMOGLOBIN 12.1 g/dL (14.0-18.0); LYMPHOCYTES # (AUTO) 2.6 10^3/uL (1.5-3.5); LYMPHOCYTES % (AUTO) 24.3 %; MEAN CORPUSCULAR HEMOGLOBIN 27.9 pg (27.0-31.0); MEAN CORPUSCULAR HGB CONC 31.8 g/dL (32.0-36.0); MEAN CORPUSCULAR VOLUME 87.8 fL (80.0-94.0); MEAN PLATELET VOLUME 9.2 fL (7.4-11.4); MONOCYTES # (AUTO) 0.8 10^3/uL (0.0-1.0); MONOCYTES % (AUTO) 7.5 %; NEUTROPHILS # (AUTO) 6.5 10^3/uL (1.5-6.6); PLT - PLATELET COUNT 249 10^3/uL (130-450); RED BLOOD COUNT 4.34 10^6/uL (4.70-6.10); RED CELL DISTRIBUTION WIDTH 14.6 % (12.0-15.0); WHITE BLOOD COUNT 10.7 x10^3/uL (4.8-10.8)
[2024-01-05 08:41] LABS: CALCIUM 8.8 mg/dL (8.5-10.3); CREATININE 0.7 mg/dL (0.6-1.3); MAGNESIUM 1.8 mg/dL (1.7-2.3); POTASSIUM 3.6 mmol/L (3.5-4.5)
[2024-01-05] MEDS: ENOXAPARIN 40 MG/0.4 ML SYRINGE SUBQ SCH (08:47)
[2024-01-05] MEDS: PANTOPRAZOLE 40 MG VIAL IVP SCH (09:03)
[2024-01-05] MEDS: HYDROmorphone 2 MG/ML VIAL IVP PRN (09:47)
--- NOTE | 2024-01-05 10:51 | Ultrasound Report ---
PROCEDURE: Abdomen Limited INDICATIONS: right upper quadrant TECHNIQUE: Real-time focused scanning was performed of the abdomen, with image documentation. COMPARISONS: 01/04/2024 CT FINDINGS: Liver measures 15 cm. Overall hyperechoic echotexture. Suspected small liver cysts are present. Gallbladder is unremarkable. CBD measures 5 mm, within normal limits. The pancreas is very heterogeneous and enlarged, but better evaluated on CT. This is partially obscur ed by bowel gas on ultrasound. Right kidney measures 10 cm. IVC is patent. IMPRESSION: Unremarkable appearance of the gallbladder and biliary system. Very heterogeneous enlarged pancreas, better assessed on recent CT. Nonspecific hyperechoic appearance of the liver, usually due to steatosis. Reviewed by: Elliot Jasso MD on 01/05/2024 10:49 AM PDT Approved by: Elliot Jasso MD on 01/05/2024 10:49 AM PDT Station ID: [id number]
--- NOTE | 2024-01-05 11:02 | PHARMACY PROGRESS NOTE ---
- Best Possible Medication History Admit Date and Time: 01/04/24 2130 Processed by: Pharmacy Medications reviewed in ED?: No Medication History completed: Yes Patient Interview: Completed Secondary Source(s): Insurance records As the person ultimately responsible for medication therapy, providers are able to order a medication from an existing home medication list in [facility] via the "Reconcile Routine" prior to Confirmation of that medication by underwriting support specialist. Such practice is discouraged except when the physician, in their clinical judgment, deems that a medical need exists for a medication without regard to previous use.
[2024-01-05] MEDS: SUCRALFATE 1 GM/10 ML UDC PO SCH (11:30)
[2024-01-05] MEDS: LIPASE/PROTEASE/AMYLASE CAPSULE PO SCH (17:44)
--- NOTE | 2024-01-06 03:48 | PROVIDER PROGRESS NOTE ---
Human Resources Representative Note - Human Resources Representative Note Human Resources Representative Note: Called by RN stating "patient requesting PRN benadryl, please." Chart briefly reviewed, Jamie ordered.
[2024-01-06] MEDS: diphenhydrAMINE INJ 50 MG/ML VIAL IVP PRN (04:08)
[2024-01-06 05:48] LABS: BASOPHILS # (AUTO) 0.1 10^3/uL (0.0-0.1); BASOPHILS % (AUTO) 0.8 %; EOSINOPHILS # (AUTO) 0.8 10^3/uL (0.0-0.7); EOSINOPHILS % (AUTO) 8.2 %; HCT - HEMATOCRIT 33.1 % (42.0-52.0); HGB - HEMOGLOBIN 10.6 g/dL (14.0-18.0); LYMPHOCYTES # (AUTO) 2.4 10^3/uL (1.5-3.5); LYMPHOCYTES % (AUTO) 26.1 %; MEAN CORPUSCULAR HEMOGLOBIN 28.4 pg (27.0-31.0); MEAN CORPUSCULAR VOLUME 88.7 fL (80.0-94.0); MEAN PLATELET VOLUME 9.2 fL (7.4-11.4); MONOCYTES # (AUTO) 0.8 10^3/uL (0.0-1.0); MONOCYTES % (AUTO) 8.5 %; NEUTROPHILS # (AUTO) 5.2 10^3/uL (1.5-6.6); NEUTROPHILS % (AUTO) 56.2 %; PLT - PLATELET COUNT 200 10^3/uL (130-450); RED BLOOD COUNT 3.73 10^6/uL (4.70-6.10); RED CELL DISTRIBUTION WIDTH 14.5 % (12.0-15.0); WHITE BLOOD COUNT 9.3 x10^3/uL (4.8-10.8)
[2024-01-06 06:02] LABS: CALCIUM 8.6 mg/dL (8.5-10.3); CREATININE 0.6 mg/dL (0.6-1.3); MAGNESIUM 1.7 mg/dL (1.7-2.3); POTASSIUM 3.6 mmol/L (3.5-4.5)
[2024-01-06 08:23] VITALS: BP 145/93; O2SAT 97
[2024-01-06] MEDS: amLODIPine 5 MG TABLET PO SCH (08:39)
[2024-01-06] MEDS: hydrOXYzine PAMOATE 25 MG CAPSULE PO PRN (09:22)
--- NOTE | 2024-01-06 09:27 | PROVIDER PROGRESS NOTE ---
Subjective - Prog Note Date Prog Note Date: 01/06/24 Prog Note Time: 12:37 - Subjective Pt reports feeling: No change Subjective: Diet advancement has helped his pain somewhat. He is most comfortable when he is able to eat small meals with bland food. He is hopeful for treatment and ready to comply with a treatment plan that includes no alcohol. Current Medications - Current Medications Current Medications: Medications Amlodipine Besylate (Amlodipine 5 Mg Tablet) 5 mg PO DAILY [facility] Last Admin: 01/06/24 08:39 Dose: 5 mg Lipase/Protease/Amylase (Lipase/Protease/Amylase Capsule) 1 cap PO TIDWM [facility] Last Admin: 01/06/24 11:57 Dose: 1 cap Diphenhydramine HCl (Diphenhydramine Inj 50 Mg/Ml Vial) 25 mg IVP Q8H PRN PRN Reason: Allergy Symptoms Stop: 01/07/24 04:00 Last Admin: 01/06/24 04:08 Dose: 25 mg Enoxaparin Sodium (Enoxaparin 40 Mg/0.4 Ml Syringe) 40 mg SUBQ DAILY [facility] Last Admin: 01/06/24 07:40 Dose: 40 mg Hydromorphone HCl (Hydromorphone 2 Mg/Ml Vial) 2 mg IVP Q3H PRN PRN Reason: Abdominal Pain Last Admin: 01/06/24 11:09 Dose: 2 mg Hydroxyzine Pamoate (Hydroxyzine Pamoate 25 Mg Capsule) 25 - 50 mg PO Q6H PRN PRN Reason: ITCHING Last Admin: 01/06/24 09:22 Dose: 50 mg Ondansetron HCl (Ondansetron 4 Mg/2 Ml Vial) 4 mg IVP Q6HR PRN PRN Reason: Nausea / Vomiting Pantoprazole Sodium (Pantoprazole 40 Mg Vial) 40 mg IVP QDAC [facility] Last Admin: 01/06/24 06:38 Dose: 40 mg Sucralfate (Sucralfate 1 Gm/10 Ml Udc) 1 gm PO 0700,1100,1600,2200 [facility] Last Admin: 01/06/24 11:09 Dose: 1 gm Objective - Vital Signs/Intake & Output Vital Signs: Vital Signs x48h Temp Pulse Resp BP Pulse Ox 01/06/24 08:00 37 C 79 16 145/93 H 97 Intake & Output: Intake & Output 01/03/24 01/04/24 01/05/24 01/06/24 23:59 23:59 23:59 23:59 Intake Total 1000 3375.000 1128.333 Balance 1000 3375.000 1128.333 - Objective General Appearance: positive: No acute distress Eyes Bilateral: positive: Normal inspection ENT: positive: ENT inspection nml Neck: positive: Nml inspection Respiratory: positive: Chest non-tender, No respiratory distress, Breath sounds nml Cardiovascular: positive: Regular rate & rhythm Abdomen: positive: Nml bowel sounds, No distention, Tenderness (epigastic tenderness, and slightly to the left of ML in the upper quadrant.) Back: positive: Nml inspection Skin: positive: Color nml Extremities: positive: Non-tender, No pedal edema Neurologic/Psychiatric: positive: Oriented x3, Mood/affect nml - Lab Results Fish Bones: 01/06/24 05:26 01/06/24 05:26 Other Labs: Lab Results x24hrs 01/06/24 01/06/24 Range/Units 05:26 05:26 WBC 9.3 (4.8-10.8) x10^3/uL RBC 3.73 L (4.70-6.10) 10^6/uL Hgb 10.6 L (14.0-18.0) g/dL Hct 33.1 L (42.0-52.0) % MCV 88.7 (80.0-94.0) fL MCH 28.4 (27.0-31.0) pg MCHC 32.0 (32.0-36.0) g/dL RDW 14.5 (12.0-15.0) % Plt Count 200 (130-450) 10^3/uL MPV 9.2 (7.4-11.4) fL Neut # (Auto) 5.2 (1.5-6.6) 10^3/uL Lymph # (Auto) 2.4 (1.5-3.5) 10^3/uL [place] # (Auto) 0.8 (0.0-1.0) 10^3/uL Eos # (Auto) 0.8 H (0.0-0.7) 10^3/uL Baso # (Auto) 0.1 (0.0-0.1) 10^3/uL Absolute Nucleated RBC 0.00 x10^3/uL Nucleated RBC % 0.0 /100WBC Sodium 138 (135-145) mmol/L Potassium 3.6 (3.5-4.5) mmol/L Chloride 106 (101-111) mmol/L Carbon Dioxide 28 (21-32) mmol/L Anion Gap 4.0 L (6-13) BUN 5 L (6-20) mg/dL Creatinine 0.6 (0.6-1.3) mg/dL Estimated GFR (MDRD) 144 (>89) Glucose 99 (74-104) mg/dL Calcium 8.6 (8.5-10.3) mg/dL Magnesium 1.7 (1.7-2.3) mg/dL ABX Reporting Has patient been on IV antibiotics over the past 48 hours?: No Assessment/Plan - Problem List (1) Acute on chronic pancreatitis Impression: Pain is better with dilaudid IV, but continues to require this medication. Increased IV hydromorphone from every 4 hours to every 3 hours for pain management yesterday, and this has been effective. He is tolerating a full liquid diet and states that his pain is actually better with this versus a clear liquid diet. . The patient has acute on chronic pancreatitis. related to alcohol use. Exte nsive counseling today given cessation of alcohol use.Patient understands that he cannot continue to drink CT from 01/04/24 revealed "pancreatic necrosis of the pancreatic tail, cystic le sabrina of the pancreatic tail which appears to be new from prior imaging, abnormal enhancement Of the gastric wall similar to prior due to a similar cystic mass. 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 RUQ US shows no ductal dilation. I have spoken to [facility] as well as [facility] this AM. Patient would transfer to [facility] at [facility] with GI consult. has previously been seen by [facility]. Then received additional phone call from KANDICE Billy MD with [facility]. She states that there would not be any stone removal of the stone from the pancreatic duct until the acute pancreatitis is resolved. She believes the patient can be followed as an outpatient with [facility]. She is entering a referral for this patient to be seen. (2) Abdominal pain Impression: See above. Because his pancreatic duct stone can be managed as an outpatient, I will convert his pain management to po medication, and we will discharge him to home this afternoon. Hydrocodone has been effective in the past as an outpatient, so will start with that while here. (3) Alcohol use disorder Impression: currently committed to his sobriety. . (2) Hypertension Impression: I have restarted home amlodipine, 5 mg daily. relatively well controlled. Readings in last 24 h. 124/88, 127/83, 145/93. Will not increase medication.
[2024-01-06] MEDS: HYDROcod/ACETAM 10 MG/325 MG TABLET PO PRN (13:18)
--- NOTE | 2024-01-06 14:37 | Discharge Plan ---
Discharge Plan Problem Reviewed?: Yes Disposition: Home, Self Care Condition: Stable Prescriptions: HYDROcodone/ACET 10/325 [[place] 10 mg/325 mg] 1 - 2 tab PO Q4HR PRN #40 tab PRN Reason: Moderate Pain (Level 4-6) hydrOXYzine PAMOATE [Vistaril] 25 - 50 mg PO Q6H PRN #30 cap PRN Reason: Itching Diet: Regular (bland diet. no spicy or fatty foods) Activity Restrictions: No Restrictions Shower Restrictions: No Driving Restrictions: No (no driving on pain meds) Weight Bearing: Full Weight No Smoking: If you smoke, Please STOP! Call for help.
--- NOTE | 2024-01-06 14:48 | DISCHARGE SUMMARY ---
Discharge Summary Admit Date: 01/04/24 Discharge Date: 01/06/24 Discharging Provider: Sarah Sanchez PA-C Primary Care Provider: Chari [facility] Code Status: Attempt Resuscitation Condition at Discharge: Good Discharge Disposition: 01 Home, Self Care - DIAGNOSES Admission Diagnoses: Acute on chronic pancreatitis Hypomagnesemia Hypertension Gastric ulcers Alcohol dependence Anxiety Tobacco abuse Overweight Discharge Diagnoses with Status of Each Condition: 1) Acute on chronic pancreatitis Impression: Pain is controlled with hydrocodone. He is tolerating a full liquid diet and states that his pain is actually better with this versus a clear liquid diet. . The patient has acute on chronic pancreatitis. related to alcohol use. Extensive counseling today given cessation of alcohol use.Patient understands that he cannot continue to drink CT from 01/04/24 revealed "pancreatic necrosis of the pancreatic tail, cystic lesion of the pancreatic tail which appears to be new from prior imaging, abnormal enhancement Of the gastric wall similar to prior due to a similar cystic mass. 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 RUQ US shows no ductal dilation. Discussed with Hortencia [facility] with [facility]. She states that there would not be any stone removal of the stone from the pancreatic duct until the acute pancreatitis is resolved. She believes the patient can be followed as an outpatient with [facility]. She is entering a referral for this patient to be seen. (2) Abdominal pain Impression: See above. Because his pancreatic duct stone can be managed as an outpatient,Pain medication was converted to hydrocodone p.o. This was effective and he was discharged home (3) Alcohol use disorder Impression: currently committed to his sobriety. Long discussion about this today. His is a daily drinker. It is difficult for him to avoid alcohol when it is in his home. He will do his best, but has had difficulty With this in the past. (2) Hypertension Impression: I have restarted home amlodipine, 5 mg daily. relatively well controlled. Readings in last 24 h. 124/88, 127/83, 145/93. Will not increase medication. restart Propranolol 20mg BID when arrives home - ALLERGIES Allergies/Adverse Reactions: Allergies Allergy/AdvReac Type Severity Reaction Status Date / Time No Known Drug Allergies Allergy Verified 01/04/24 18:40 - MEDICATIONS Home Medications: Ambulatory Orders Medication Instructions Recorded Confirmed Propranolol HCl 20 mg PO BID PRN 10/17/21 01/05/24 amLODIPine [Norvasc] 5 mg PO DAILY #30 tablet 02/26/22 01/05/24 Lipase/Protease/Amylase 1 cap PO TIDWM 06/26/23 01/05/24 [Pancrelipase Dr 5,000/17,000/24,000 Fdc] Pantoprazole Sodium [Protonix] 20 mg PO BID PRN 01/05/24 01/05/24 Sucralfate [Carafate] 1 gm PO QID 01/05/24 01/05/24 HYDROcodone/ACET 10/325 [[place] 10 1 - 2 tab PO Q4HR PRN #40 tab 01/06/24 mg/325 mg] hydrOXYzine PAMOATE [Vistaril] 25 - 50 mg PO Q6H PRN #30 cap 01/06/24 - LABS Result Diagrams: 01/06/24 05:26 01/06/24 05:26
== END 2024-01-06 15:30 | disposition home or self-care (01) | DRG 439 ==
LOC: ED 18:24 → MS2 21:43
PROVIDERS: ADMIT Internal Medicine; ATTEND Physician Assistant Medical
DX: K85.21 Alcohol induced acute pancreatitis with uninfected necrosis (principal); K86.3 Pseudocyst of pancreas; K86.0 Alcohol-induced chronic pancreatitis; E83.42 Hypomagnesemia; I10 Essential (primary) hypertension; K25.9 Gastric ulcer, unspecified as acute or chronic, without hemorrhage or perforation; F10.20 Alcohol dependence, uncomplicated; F41.9 Anxiety disorder, unspecified; F17.200 Nicotine dependence, unspecified, uncomplicated; K86.89 Other specified diseases of pancreas; G89.29 Other chronic pain; M54.9 Dorsalgia, unspecified; D72.829 Elevated white blood cell count, unspecified; R79.89 Other specified abnormal findings of blood chemistry; Z82.49 Family history of ischemic heart disease and other diseases of the circulatory system
CPT/HCPCS: 36415; 74177; 76705; 80048; 80053; 82077; 83690; 83735; 84484; 85025; 99285; 99406; A9270; J1170; J1200; J1650; Q9967

== ENCOUNTER 2024-01-31 09:55 | Emergency (ER) | payer OTHER ==
[2024-01-31 10:36] LABS: BASOPHILS # (AUTO) 0.1 10^3/uL (0.0-0.1); BASOPHILS % (AUTO) 0.3 %; EOSINOPHILS # (AUTO) 0.1 10^3/uL (0.0-0.7); EOSINOPHILS % (AUTO) 0.7 %; HCT - HEMATOCRIT 40.9 % (42.0-52.0); HGB - HEMOGLOBIN 13.3 g/dL (14.0-18.0); LYMPHOCYTES # (AUTO) 1.7 10^3/uL (1.5-3.5); MEAN CORPUSCULAR HEMOGLOBIN 27.7 pg (27.0-31.0); MEAN CORPUSCULAR HGB CONC 32.5 g/dL (32.0-36.0); MEAN CORPUSCULAR VOLUME 85.2 fL (80.0-94.0); MEAN PLATELET VOLUME 8.7 fL (7.4-11.4); MONOCYTES # (AUTO) 0.7 10^3/uL (0.0-1.0); MONOCYTES % (AUTO) 4.6 %; NEUTROPHILS # (AUTO) 11.9 10^3/uL (1.5-6.6); NEUTROPHILS % (AUTO) 82.1 %; PLT - PLATELET COUNT 274 10^3/uL (130-450); RED CELL DISTRIBUTION WIDTH 15.1 % (12.0-15.0); WHITE BLOOD COUNT 14.5 x10^3/uL (4.8-10.8)
[2024-01-31 10:53] LABS: ALBUMIN 4.6 g/dL (3.2-5.5); ALBUMIN/GLOBULIN RATIO 1.4 (1.0-2.2); BILIRUBIN,TOTAL 0.6 mg/dL (0.2-1.0); CALCIUM 10.2 mg/dL (8.5-10.3); CREATININE 0.7 mg/dL (0.6-1.3); POTASSIUM 4.1 mmol/L (3.5-4.5); TOTAL PROTEIN 7.8 g/dL (6.4-8.9)
--- NOTE | 2024-01-31 11:47 | ED Physician Documentation ---
PD HPI ABD PAIN - Stated complaint Stated Complaint: ABD/BACK PX,N/V - Chief complaint Chief Complaint: Abd Pain - Additional information Additional information: 48-year-old male with history of hypertension, chronic pancreatitis, history of alcohol dependence, gastric ulcers, anxiety, chronic back pain presents emergency department for midepigastric pain. Patient says that he has been out of hydrocodone and has been taking things like Carafate and Creon for his pain but has had little to no relief. He was recently admitted in the hospital where they found that intraductal stone measuring 5 mm and unfortunately tried multiple times to get him to [facility] for an ERCP but given their volume they were unable to accept the patient. He has an appointment in mid April for an ERCP and feels like he is having a hard time coping with the pain and nausea tell them. He said he has been having nausea vomiting consistently and since about 3:30 AM he has been having a heavy uptake in mid epigastric pain that radiates to both sides with nausea to the point where now he is only vomiting bile. Unsure if he had any fevers or chills. PD PAST MEDICAL HISTORY - Past Medical History Past Medical History: Yes Cardiovascular: Hypertension Respiratory: None Neuro: None Endocrine/Autoimmune: None GI: Ulcers, Pancreatitis, Other : None HEENT: None Psych: Anxiety, Other Musculoskeletal: Chronic back pain, Other Derm: Other - Past Surgical History Past Surgical History: Yes HEENT: Myringotomy (tubes) - Present Medications Home Medications: Ambulatory Orders Medication Instructions Recorded Confirmed Propranolol HCl 20 mg PO BID PRN 10/17/21 01/31/24 amLODIPine [Norvasc] 5 mg PO DAILY #30 tablet 02/26/22 01/31/24 Lipase/Protease/Amylase 1 cap PO TIDWM 06/26/23 01/31/24 [Pancrelipase Dr 5,000/17,000/24,000 Mcfp] Pantoprazole Sodium [Protonix] 20 mg PO BID PRN 01/05/24 01/31/24 Sucralfate [Carafate] 1 gm PO QID 01/05/24 01/31/24 HYDROcodone/ACET 10/325 [[place] 10 1 - 2 tab PO Q4HR PRN #40 tab 01/06/24 01/31/24 mg/325 mg] hydrOXYzine PAMOATE [Vistaril] 25 - 50 mg PO Q6H PRN #30 cap 01/06/24 01/31/24 HYDROcod/ACETAM 5/325 [[place] 5/325] 1 tab PO Q6H PRN #15 tab 01/31/24 Ondansetron Odt [Zofran Odt] 4 mg TL Q6H PRN #10 tablet 01/31/24 - Allergies Allergies/Adverse Reactions: Allergies Allergy/AdvReac Type Severity Reaction Status Date / Time No Known Drug Allergies Allergy Verified 01/31/24 10:17 - Social History Does the pt smoke?: Yes Smoking Status: Current every day smoker Does the pt drink ETOH?: No Does the pt have substance abuse?: Yes Substance Use and Type: Marijuana - Immunizations Immunizations are current?: Yes - POLST Patient has POLST: No POLST Status: Full Code PD ED PE NORMAL - Vitals Vital signs reviewed: Yes - General General: Alert and oriented X 3, No acute distress, Well developed/nourished - HEENT HEENT: Atraumatic - Cardiac Cardiac: RRR - Respiratory Respiratory: No respiratory distress - Abdomen Abdomen: Soft (tenderness to mid epigastic region radiating to left and right upper quadrant) - Back Back: No CVA TTP - Derm Derm: Normal color, Warm and dry, No rash - Extremities Extremities: No edema, No calf tenderness / cord - Psych Psych: Normal mood Results - Vitals Vitals: Vital Signs - 24 hr 01/31/24 01/31/24 01/31/24 10:17 11:33 13:00 Temperature 36.8 C Heart Rate 91 85 72 Respiratory 18 13 18 Rate Blood Pressure 164/112 H 171/101 H 165/105 H O2 Saturation 100 100 100 01/31/24 01/31/24 01/31/24 15:00 16:54 17:52 Temperature 36.7 C Heart Rate 70 75 70 Respiratory 16 16 14 Rate Blood Pressure 162/100 H 169/99 H 157/89 H O2 Saturation 100 98 98 Oxygen O2 Source Room air - EKG (time done) 1353 EKG releavant findings:: EKG personally interpreted by author of this note. Relevant findings are: Rate: Rate (enter#) (93) Rhythm: NSR [place]: Normal Intervals: Normal [place] QRS: Normal Ischemia: Normal ST segments Computer interpretation: Agree with computer - Labs Labs: Laboratory Tests 01/31/24 01/31/24 01/31/24 10:30 10:30 10:30 WBC 14.5 H RBC 4.80 Hgb 13.3 L Hct 40.9 L MCV 85.2 MCH 27.7 MCHC 32.5 RDW 15.1 H Plt Count 274 MPV 8.7 Neut # (Auto) 11.9 H Lymph # (Auto) 1.7 [place] # (Auto) 0.7 Eos # (Auto) 0.1 Baso # (Auto) 0.1 Absolute Nucleated RBC 0.00 Nucleated RBC % 0.0 Sodium 137 Potassium 4.1 Chloride 100 L Carbon Dioxide 29 Anion Gap 8.0 BUN 8 Creatinine 0.7 Estimated GFR (MDRD) 120 Glucose 137 H Calcium 10.2 Total Bilirubin 0.6 AST 12 ALT 8 L Alkaline Phosphatase 76 Total Protein 7.8 Albumin 4.6 Globulin 3.2 Albumin/Globulin Ratio 1.4 Lipase 896 H Ethyl Alcohol < 10.0 - Rads (name of study) CT abdomen pelvis with con Relevant Findings:: Final report received, EMP independent interpretation of test, Other (Chronic appearance of pancreatitis and intraductal stone and pancreatic dilation. Developing pancreatic necrosis versus edema) PD Medical Decision Making - ED course ED course: 48 yo male here for severe abdominal pain. Patient has a history of chronic pancreatitis. Labs are complete for further evaluation and reveals leukocytosis, 14.5. Last white count was 01/05 it was found to be 9.3 Hemoglobin 13.3, lipase significantly elevated at 896 last lipase was found to be 480 on 01/03. CT abdomen pelvis with contrast was complete for further evaluation and revealed hypoattenuation pancreatic tail cystic lesion with low-attenuation could be due to pancreatic necrosis versus edema. Overall chronic pancreatitis with intraductal stone and pancreatic dilation. He also appears to have thickening within the descending and proximal transverse colon which could be due to colitis. I spoke with her surgeon Dr. Campos who says that he would not benefit from any surgical services that she is able to provide here and that he benefit from transferring out to a facility with GI. I also spoke with her hospitalist who says that patient would benefit from another facility where there are more specialty services including GI. Working on trying to transfer patient to a [facility] facility as he is a [facility] patient. Patient received 1 L IV fluid and Dilaudid for pain droperidol and Zofran for pain and nausea. Unfortunately [facility] is completely booked in every single hospital and we offered hospitalization here as we did speak with [facility] and they do not believe that any procedure is warranted that this sounds like a classic case of acute pancreatitis. Patient said that he would like to discharge home and try manage his pancreatitis with pain medication and Zofran and understand return precautions. Given that patient has had acute on chronic pancreatitis multiple times that he has a scheduled ERCP outpatient I believe that this is fair. He understands when to report back to the emergency department he does have a GI doctor and was told to call them first thing tomorrow morning to get an appoint with him. I am prescribing a short course of short-acting opioid pain medication for this patient. I have reviewed the patients BENEFITS SPECIALIST and no concerning findings were noted. I have discussed that the opioids are for short term therapy only, and will not be refilled from the ED. Very strict ER return precautions given patient safe for discharge all questions answered at this time he has a ride home. Departure - Departure Disposition: Home, Self Care Clinical Impression: Pancreatitis Qualifiers: Chronicity: acute Instructions: ED Pancreatitis Prescriptions: HYDROcod/ACETAM 5/325 [[place] 5/325] 1 tab PO Q6H PRN #15 tab PRN Reason: Pain >8 Ondansetron Odt [Zofran Odt] 4 mg TL Q6H PRN #10 tablet PRN Reason: Nausea / Vomiting Comments: Thank you for trusting us with your care. I would call your GI doc for [facility] tomorrow and let them know at today's ER visit do not eat or drink anything until your abdominal pain and nausea has completely subsided this can take a couple days. Drink plenty of fluids to help with pancreatitis lots of water avoid alcohol when you do start eating and make sure that you are really adhering to a chronic pancreatitis diet. Please come back and if you are having any worsening pain fevers or chills any other concerning emergent symptoms. Forms: PCP List Discharge Date/Time: 01/31/24 18:03
[2024-01-31] MEDS: ONDANSETRON 4 MG/2 ML VIAL IVP STA (12:02)
[2024-01-31] MEDS: HYDROmorphone 0.5 MG/0.5 ML SYRINGE IVP STA ×2 (12:02→16:52)
[2024-01-31] MEDS: SODIUM CHLORIDE 0.9% 1,000 ML IV ONE (12:03)
[2024-01-31] MEDS ORDERED: iohexoL-300 100 ML VIAL ONE (12:28)
[2024-01-31] MEDS: DROPERIDOL 5 MG/2 ML VIAL IVP STA (13:45)
--- NOTE | 2024-01-31 13:52 | CT Report ---
PROCEDURE: Abdomen/Pelvis W INDICATIONS: mid epigastric pain, hx of pancreatitis CONTRAST: Omni 300 100ml TECHNIQUE: After the administration of intravenous contrast, a CT scan of the abdomen and pelvis was performed. Images were recorded and evaluated at appropriate window settings. Reformats: coronal and sagittal. F or radiation dose reduction, the following was used: automated exposure control, adjustment of mA and /or kV according to patient size. COMPARISON: Ultrasound abdomen 01/05/2024, CT abdomen pelvis 01/04/2024 FINDINGS: Image quality: Diagnostic. Lower chest: Unremarkable. Liver: No solid mass. Hepatic steatosis. Unchanged simple hepatic cysts. Gallbladder: Unremarkable. Biliary tree: No intrahepatic or extrahepatic dilation, accounting for age. Spleen: No splenomegaly. Pancreas: As identified on prior exam, there is low attenuation within the pancreatic tail stable com pared to prior exam. Cystic lesion is also unchanged. Pancreatic ductal dilation remains at approxima tely 5 mm. Ductal stone is unchanged. Adrenals: No adrenal nodule. Kidneys and ureters: No hydronephrosis. No renal cystic lesion which requires follow up. No solid mas s. Stomach, bowel and peritoneum: Previous appearance of hypoattenuation within the gastric wall remains present and appears more prominent.. Mild appearance of thickening within the ascending and proximal portions of the transverse colon. No pathologic free fluid. Lymph nodes: No central or retroperitoneal adenopathy. Vessels: No infrarenal aortic aneurysm. Patent portal vein. Splenic vein appears occluded. Portosyste ney shunts are present. PELVIS Reproductive organs: Unremarkable. Bladder: No abnormal wall thickening, accounting for underdistention. Pelvic lymph nodes: No pelvic adenopathy by size criteria. Bones: No aggressive osseous abnormality. Other: Small fat-containing ventral wall hernia. Minimal fat-containing inguinal hernias. IMPRESSION: Unchanged appearance of hypoattenuating pancreatic tail cystic lesions. As previously noted, low atte nuation could be secondary to developing pancreatic necrosis versus edema. Overall appearance of chronic pancreatitis with intraductal stone and pancreatic dilation, unchanged. Appearance of thickening within the descending and proximal transverse colon. While this could be sec ondary to incomplete distention, minimal areas of stranding are present suggestive of potential devel oping colitis. Reviewed by: Chapis Saldana MD on 01/31/2024 1:51 PM PDT Approved by: Chapis Saldana MD on 01/31/2024 1:51 PM PDT Station ID: [id number]
[2024-01-31] MEDS: iohexoL-300 100 ML VIAL IVP ONE (15:59)
[2024-01-31 17:01] VITALS: O2SAT 98
[2024-01-31 18:02] VITALS: BP 157/89
== END 2024-01-31 18:03 | disposition home or self-care (01) ==
LOC: ED 09:55
DX: K85.90 Acute pancreatitis without necrosis or infection, unspecified (principal); I10 Essential (primary) hypertension; Z87.11 Personal history of peptic ulcer disease; Z87.19 Personal history of other diseases of the digestive system; Z79.899 Other long term (current) drug therapy; F17.200 Nicotine dependence, unspecified, uncomplicated
CPT/HCPCS: 36415; 74177; 80053; 82077; 83690; 85025; 93005; 96374; 96375; 96376; 99284; J1170; Q9967

== ENCOUNTER 2024-07-30 16:43 | Observation (INO) ==
[2024-07-30 18:07] LABS: BASOPHILS % (AUTO) 0.5 %; EOSINOPHILS % (AUTO) 0.8 %; HGB - HEMOGLOBIN 15.6 g/dL (14.0-18.0); LYMPHOCYTES % (AUTO) 12.6 %; MEAN CORPUSCULAR HEMOGLOBIN 29.8 pg (27.0-31.0); MEAN CORPUSCULAR HGB CONC 33.9 g/dL (32.0-36.0); MEAN PLATELET VOLUME 8.7 fL (7.4-11.4); MONOCYTES % (AUTO) 4.2 %; NEUTROPHILS % (AUTO) 81.5 %; PLT - PLATELET COUNT 348 10^3/uL (130-450); RED BLOOD COUNT 5.23 10^6/uL (4.70-6.10); RED CELL DISTRIBUTION WIDTH 16.3 % (12.0-15.0); WHITE BLOOD COUNT 22.1 x10^3/uL (4.8-10.8)
[2024-07-30 18:10] LABS: ABNORMAL LYMPHS % (MANUAL) 0 %
[2024-07-30 18:36] LABS: BAND NEUTROPHILS % (MANUAL) 3 %; LYMPHOCYTES # (MANUAL) 3.3 10^3/uL (1.5-3.5); LYMPHOCYTES % (MANUAL) 13 %; MONOCYTES # (MANUAL) 1.1 10^3/uL (0.0-1.0); NEUTROPHILS # (MANUAL) 17.7 10^3/uL (1.5-6.6); REACTIVE LYMPHS % (MANUAL) 2 %
[2024-07-30 18:37] LABS: DIFFERENTIAL COMMENT MANUAL DIFFERENTIAL; PLATELET ESTIMATE, MANUAL NORMAL (130-450,000) (NORMAL); PLATELET MORPHOLOGY NORMAL APPEARANCE (NORMAL); RBC MORPHOLOGY (MULTIPLE) NORMAL APPEARANCE (NORMAL)
[2024-07-30 18:38] LABS: ALBUMIN 4.7 g/dL (3.2-5.5); ALBUMIN/GLOBULIN RATIO 1.5 (1.0-2.2); BILIRUBIN,TOTAL 0.7 mg/dL (0.2-1.0); CALCIUM 10.3 mg/dL (8.5-10.3); CREATININE 0.8 mg/dL (0.6-1.3); POTASSIUM 4.1 mmol/L (3.5-4.5); TOTAL PROTEIN 7.8 g/dL (6.4-8.9)
[2024-07-30] MEDS: SODIUM CHLORIDE 0.9% 1,000 ML IV STA ×2 (19:40→23:09)
[2024-07-30] MEDS: ONDANSETRON 4 MG/2 ML VIAL IVP STA (19:40)
[2024-07-30] MEDS: HYDROmorphone 1 MG/ML CARPUJECT IVP STA ×4 (19:42→22:47)
--- NOTE | 2024-07-30 19:46 | ED Physician Documentation ---
History of Present Illness Stated complaint Stated Complaint: ABD PX/V Chief complaint Chief Complaint: Abd Pain History obtained from History obtained from: Patient History of Present Illness Pain level max: 10 Pain level now: 10 Additonal information Additional information: Patient is a 48-year-old male has a history of recurrent alcoholic pancreatitis. He states that he "fell off the wagon" and started drinking again. States has had epigastric abdominal pain for 2 days, worsening today. Nothing makes it better or worse. Unable to keep anything down. No fevers. No chills. Has a history of gallstones and had stones in his pancreatic duct in the past. He had a stent for this and the stones were removed but he has not had his gallbladder out yet. No hematemesis. No melena. No hematochezia. Review of Systems Constitutional Denies: Fever or Chills Eyes Denies: Pain Ears, nose, mouth, and throat Denies: Neck pain Cardiovascular Denies: chest pain or palpitations Respiratory Denies: Cough Gastrointestinal Reports: Abdominal pain, Nausea and Vomiting Genitourinary Denies: Flank pain or Incontinence Musculoskeletal Denies: Back pain or Neck pain Meds/Allgy Home Medications Ambulatory Orders Medication Instructions Recorded Confirmed propranolol 20 mg tablet 20 mg PO DAILY PRN Anxiety 10/17/21 07/30/24 amlodipine 5 mg tablet 5 mg PO DAILY #30 tabs 02/26/22 07/30/24 pantoprazole 20 mg tablet,delayed 20 mg PO BID Heartburn 01/05/24 07/30/24 release (Protonix) sucralfate 1 gram tablet (Carafate) 1 g PO BID-QID 01/05/24 07/30/24 naizey-[id number]-igvjhzz 1 cap PO TID 05/24/24 07/30/24 10,000-32,000-42,000 unit capsule,delayed rel (Zenpep) trazodone 50 mg tablet 50 mg PO QPM PRN insomnia 05/24/24 07/30/24 ondansetron 4 mg disintegrating 4 mg PO Q6H PRN nausea and vomiting 07/30/24 07/30/24 tablet Allergies Allergies Allergy/AdvReac Type Severity Reaction Status Date / Time No Known Drug Allergies Allergy Verified 07/30/24 17:18 [facility] Medical History Medical History (Updated 07/30/24 @ 23:38 by Homer Lundberg MD) Gallstone Surgical History Surgical History History of ERCP Social History Social History Smoking Status: Current every day smoker If you are a former smoker, when did you quit? (Date/Year): n/a Number of Years Smoked: 30 How many cigarettes a day do you smoke? (20 cigarettes=1 Pk): 15 Second hand tobacco smoke exposure: Yes Do you dip or chew tobacco?: No Do you vape?: No Patient requests smoking cessation consult: No Initiate information on smoking cessation: No Living arrangement: At home Living Condition: With family Relationship: Level: Independent Do you feel safe in your home environment?: Yes Suffered physical, verbal, emotional, or financial abuse?: No History of Abuse: No Frequency: Occasional Substance Use: denies use Are you sexually active?: Yes POLST Patient has POLST: No POLST Status: Full Code Exam Constitutional normal general appearance Patient appears in pain. Moaning and grabbing his stomach HENMT oropharynx normal moist mucous membranes Eyes PERRL Neck/C-Spine visual inspection normal Respiratory breath sounds equal bilaterally, normal respiratory effort and clear to auscultation bilaterally Cardiovascular normal heart rate noted and regular rhythm noted Gastrointestinal abdomen normal to inspection, abdomen soft to palpation and nondistended Tender to palpation epigastric without peritoneal signs. Genitourinary no CVA tenderness Extremities no deformity no edema Neurology speech normal Psychiatry mental status grossly normal and oriented x3 Skin skin color normal Results Vitals Vitals: Vital Signs - 24 hr 07/30/24 17:15 07/30/24 19:42 07/30/24 19:45 Temperature 36 C L Temperature Source Temporal Artery Scan Pulse Rate 93 84 Respiratory Rate 18 20 Blood Pressure 150/113 H 184/105 H O2 Saturation 100 O2 Source Room air Room air Pain Intensity 10 10 10 07/30/24 20:12 07/30/24 20:12 07/30/24 20:45 Temperature Temperature Source Pulse Rate Respiratory Rate Blood Pressure O2 Saturation O2 Source Pain Intensity 10 10 10 07/30/24 21:00 07/30/24 21:11 07/30/24 21:41 Temperature Temperature Source Pulse Rate 85 Respiratory Rate 20 Blood Pressure 176/107 H O2 Saturation 99 O2 Source Room air Pain Intensity 10 10 10 07/30/24 22:46 07/30/24 22:47 07/30/24 23:16 Temperature Temperature Source Pulse Rate Respiratory Rate Blood Pressure O2 Saturation O2 Source Pain Intensity 10 10 8 07/30/24 23:17 07/30/24 23:20 Temperature 36 C L Temperature Source Oral Pulse Rate 90 Respiratory Rate Blood Pressure 146/92 H O2 Saturation 98 O2 Source Room air Pain Intensity 8 8 Oxygen O2 Source Room air Labs Labs: Laboratory Tests 07/30/24 07/30/24 07/30/24 18:03 19:23 22:32 WBC 22.1 H RBC 5.23 Hgb 15.6 Hct 46.0 MCV 88.0 MCH 29.8 MCHC 33.9 RDW 16.3 H Plt Count 348 MPV 8.7 Neut # (Auto) Not Reportable Lymph # (Auto) Not Reportable [place] # (Auto) Not Reportable Eos # (Auto) Not Reportable Baso # (Auto) Not Reportable Absolute Nucleated RBC Not Reportable Total Counted 100 Band Neuts % (Manual) 3 Reactive Lymphs % (Man) 2 Abnorm Lymph % (Manual) 0 Nucleated RBC % Not Reportable Neutrophils # (Manual) 17.7 H Lymphocytes # (Manual) 3.3 Monocytes # (Manual) 1.1 H Eosinophils # (Manual) 0.0 Basophils # (Manual) 0.0 Differential Comment MANUAL DIFFERENTIAL Platelet Estimate NORMAL (130-450,000) Platelet Morphology NORMAL APPEARANCE RBC Morph Micro Appear NORMAL APPEARANCE Sodium 137 Potassium 4.1 Chloride 100 L Carbon Dioxide 21 Anion Gap 16.0 H BUN 8 Creatinine 0.8 Estimated GFR (MDRD) 103 Glucose 149 H Calcium 10.3 Total Bilirubin 0.7 AST 15 ALT 8 L Alkaline Phosphatase 94 Total Protein 7.8 Albumin 4.7 Globulin 3.1 Albumin/Globulin Ratio 1.5 Lipase 1270 H Urine Color YELLOW Urine Clarity CLEAR Urine pH 7.0 Ur Specific [place] 1.015 Urine Protein NEGATIVE Urine Glucose (UA) NEGATIVE Urine Ketones >=80 H Urine Occult Blood NEGATIVE Urine Nitrite NEGATIVE Urine Bilirubin NEGATIVE Urine Urobilinogen 0.2 (NORMAL) Ur Leukocyte Esterase NEGATIVE Ur Microscopic Review NOT INDICATED Urine Culture Comments NOT INDICATED Ethyl Alcohol < 10.0 Rads (name of study) RUQ US: Relevant Findings:: Final report received and Discussed with [facility] Medical Decision Making ED course ED course: 48-year-old male with what appears to be recurrent pancreatitis secondary to alcohol use. Right upper quadrant ultrasound does not show any evidence of chol ecystitis, gallstones, choledocholithiasis. Given IV fluids, Dilaudid, Zofran, Phenergan. No inpatient beds available tonight, therefore the patient will be boarded in the emergency department given IV fluids and pain medication and nausea medications overnight with potential admission in the morning. Patient signed out to the oncoming emergency department physician for further care overnight. This document was made in part using voice recognition software. While efforts are made to proofread this document, sound alike and grammatical errors may occur. Discharge Plan Discharge Patient Disposition: 66 [facility] DC/Xfer Condition: Stable Clinical Impression: Acute pancreatitis Qualifiers: Pancreatitis type: alcohol induced Acute pancreatitis complication: unspecified Qualified Code(s): K85.20 - Alcohol induced acute pancreatitis without necrosis or infection Prescriptions: No Action propranolol 20 MG tablet 20 mg PO DAILY PRN (Reason: Anxiety) Patient Comments: take 1 tablet by mouth twice a day if needed amlodipine 5 MG tablet 5 mg PO DAILY Qty: 30 0RF sucralfate [Carafate] 1 GM tablet 1 g PO BID-QID pantoprazole [Protonix] 20 MG tablet,delayed release (DR/EC) 20 mg PO BID Zenpep 10,000-32,000 -42,000 unit capsule,delayed release(DR/EC) 1 cap PO TID trazodone 50 mg tablet 50 mg PO QPM PRN (Reason: insomnia) ondansetron 4 mg tablet,disintegrating 4 mg PO Q6H PRN (Reason: nausea and vomiting) Print Language: [place]at[place] Stand Alone Forms: PCP List
[2024-07-30] MEDS: PANTOPRAZOLE 40 MG VIAL IVP STA (21:13)
--- NOTE | 2024-07-30 21:56 | Ultrasound Report ---
PROCEDURE: US Abdomen Limited INDICATIONS: pancreatitis, h/o gallstones TECHNIQUE: Real-time focused scanning was performed of the abdomen, with image documentation. COMPARISONS: CT of abdomen and pelvis dated 05/23/2024 and 04/27/2024. FINDINGS: Liver: Liver is normal in size. Heterogeneously echogenic liver parenchyma is seen. 0.8 and 1.5 cm s imple appearing cysts are noted in left hepatic lobe. Gallbladder: No gallstones, sludge, wall thickening or pericholecystic edema. Biliary ducts: Intrahepatic bile ducts are non-dilated. Extrahepatic bile duct caliber measures 3.9 mm. Normal is 6-7 mm or less in diameter, or 10 mm or less post-cholecystectomy. Pancreas: Not well visualized due to overlying bowel gas. Right kidney: Normal in size and echotexture. Right kidney measures 9.2 cm long. No hydronephrosis o r nephrolithiasis. No solid masses. No complex renal cystic lesions which require follow-up. IVC: Intrahepatic inferior vena cava is patent. Miscellaneous: No free abdominal fluid. IMPRESSION: 1. Hepatic steatosis. No gross solid-appearing hepatic lesion. Small hepatic cysts as above. 2. Normal gallbladder. No biliary ductal dilatation. 3. Pancreas is not visualized due to overlying bowel gas. Normal-appearing right kidney. Reviewed by: Bhanu Ferreira MD on 07/30/2024 9:55 PM PST Approved by: Bhanu Ferreira MD on 07/30/2024 9:55 PM PST Station ID: [id number]
[2024-07-30] MEDS ORDERED: PROMETHAZINE 25 MG/1 ML VIAL ONE (22:43)
[2024-07-30] MEDS: KETOROLAC 30 MG/ML VIAL IVP STA (22:46)
[2024-07-30] MEDS: PROMETHAZINE INJ 25 MG in SODIUM CHLORIDE 0.9% 50 ML IV STA (22:49)
[2024-07-30 23:06] LABS: BILIRUBIN,URINE NEGATIVE (NEGATIVE); GLUCOSE, URINE (UA) NEGATIVE (NEGATIVE); KETONES,URINE (UA) >=80 mg/dL (NEGATIVE); LEUKOCYTE ESTERASE, URINE NEGATIVE (NEGATIVE); NITRITE,URINE NEGATIVE (NEGATIVE); OCCULT BLOOD,URINE NEGATIVE (NEGATIVE); PROTEIN,URINE NEGATIVE (NEGATIVE); UROBILINOGEN,URINE 0.2 (NORMAL) E.U./dL (NORMAL)
[2024-07-30 23:09] LABS: CLARITY,URINE CLEAR (CLEAR)
[2024-07-31] MEDS: HYDROmorphone 1 MG/ML CARPUJECT IVP PRN ×4 (00:35→22:31)
[2024-07-31] MEDS: HYDROmorphone 1 MG/ML CARPUJECT IVP STA ×2 (05:10→06:16)
[2024-07-31 05:48] LABS: BASOPHILS # (AUTO) 0.1 10^3/uL (0.0-0.1); BASOPHILS % (AUTO) 0.4 %; EOSINOPHILS # (AUTO) 0.1 10^3/uL (0.0-0.7); LYMPHOCYTES # (AUTO) 2.1 10^3/uL (1.5-3.5); LYMPHOCYTES % (AUTO) 17.6 %; MEAN CORPUSCULAR HEMOGLOBIN 30.3 pg (27.0-31.0); MEAN CORPUSCULAR HGB CONC 33.3 g/dL (32.0-36.0); MEAN CORPUSCULAR VOLUME 90.9 fL (80.0-94.0); MEAN PLATELET VOLUME 8.4 fL (7.4-11.4); MONOCYTES # (AUTO) 0.6 10^3/uL (0.0-1.0); MONOCYTES % (AUTO) 4.8 %; NEUTROPHILS % (AUTO) 75.9 %; PLT - PLATELET COUNT 244 10^3/uL (130-450); RED BLOOD COUNT 4.62 10^6/uL (4.70-6.10); RED CELL DISTRIBUTION WIDTH 16.5 % (12.0-15.0); WHITE BLOOD COUNT 11.8 x10^3/uL (4.8-10.8)
[2024-07-31] MEDS: SODIUM CHLORIDE 0.9% 1,000 ML IV STA (05:50)
[2024-07-31 05:51] LABS: ALBUMIN 4.2 g/dL (3.2-5.5); ALBUMIN/GLOBULIN RATIO 1.8 (1.0-2.2); BILIRUBIN,TOTAL 0.9 mg/dL (0.2-1.0); CALCIUM 8.7 mg/dL (8.5-10.3); CREATININE 0.8 mg/dL (0.6-1.3); POTASSIUM 3.8 mmol/L (3.5-4.5); TOTAL PROTEIN 6.5 g/dL (6.4-8.9)
[2024-07-31] MEDS: ONDANSETRON 4 MG/2 ML VIAL IVP PRN ×2 (08:03→16:18)
--- NOTE | 2024-07-31 08:22 | ED Physician Documentation ---
ED Addendum Addendum Addendum: I received signout/turnover of care from Dr. Tiwari on this patient; please see his note for complete H&P. In brief, patient presents with abdominal pain similar to his previous episode of pancreatitis. He is found to have a lipase of 1270 on ER abdominal panel but normal LFTs. No significant issues overnight on my shift although patient did require doses of IV Dilaudid earlier than the PRN order entered by Dr. Lundberg. At the end of my shift, patient is still in the emergency department, awaiting bed availability at [facility]. Care of patient is turned over the oncoming ED physician at end of my shift (Dr. Amado). Discharge Plan Discharge Patient Disposition: 66 [facility] DC/Xfer Condition: Stable Clinical Impression: Acute pancreatitis Qualifiers: Pancreatitis type: alcohol induced Acute pancreatitis complication: unspecified Qualified Code(s): K85.20 - Alcohol induced acute pancreatitis without necrosis or infection Prescriptions: No Action propranolol 20 MG tablet 20 mg PO DAILY PRN (Reason: Anxiety) Patient Comments: take 1 tablet by mouth twice a day if needed amlodipine 5 MG tablet 5 mg PO DAILY Qty: 30 0RF sucralfate [Carafate] 1 GM tablet 1 g PO BID-QID pantoprazole [Protonix] 20 MG tablet,delayed release (DR/EC) 20 mg PO BID Zenpep 10,000-32,000 -42,000 unit capsule,delayed release(DR/EC) 1 cap PO TID trazodone 50 mg tablet 50 mg PO QPM PRN (Reason: insomnia) ondansetron 4 mg tablet,disintegrating 4 mg PO Q6H PRN (Reason: nausea and vomiting) Print Language: Serbian
--- NOTE | 2024-07-31 10:03 | ED Physician Documentation ---
ED Addendum Addendum Addendum: Having consistent abdominal pain from the pancreatitis. Some nausea. He states he does not have any withdrawal type symptoms. He had been drinking heavily for just 2 days and that had been sober for a while before that. Will watch for withdrawal type symptoms and I told him to let us know if he had those. Otherwise regular pain meds and antiemetics and IV fluids. Discharge Plan Discharge Patient Disposition: 66 [facility] DC/Xfer Condition: Stable Clinical Impression: Acute pancreatitis Qualifiers: Pancreatitis type: alcohol induced Acute pancreatitis complication: unspecified Qualified Code(s): K85.20 - Alcohol induced acute pancreatitis without necrosis or infection Prescriptions: No Action propranolol 20 MG tablet 20 mg PO BID Patient Comments: take 1 tablet by mouth twice a day if needed amlodipine 5 MG tablet 5 mg PO DAILY Qty: 30 0RF sucralfate [Carafate] 1 GM tablet 1 g PO BID-QID pantoprazole [Protonix] 20 MG tablet,delayed release (DR/EC) 20 mg PO BID Zenpep 10,000-32,000 -42,000 unit capsule,delayed release(DR/EC) 1 cap PO TID trazodone 50 mg tablet 50 mg PO QPM PRN (Reason: insomnia) ondansetron 4 mg tablet,disintegrating 4 mg PO Q6H PRN (Reason: nausea and vomiting) acetaminophen 325 mg tablet 325 mg PO Q4H PRN (Reason: pain) naloxone 4 mg/actuation spray,non-aerosol 1 spray INTRANASAL Q3M PRN (Reason: opioid overdose) Patient Comments: CALL 911 ADMINISTER A SINGLE spray INTO ONE NOSTRIL repeat in 3 MINUTES IF NO OR MINIMAL RESPONSE Print Language: Belgian
[2024-07-31] MEDS: KETOROLAC 15 MG/ML VIAL IVP SCH (10:05)
[2024-07-31] MEDS: PROCHLORPERAZINE 10 MG/2 ML VIAL IVP STA (10:19)
--- NOTE | 2024-07-31 12:10 | PHARMACY PROGRESS NOTE ---
Best Possible Medication History Admit Date and Time: Home Medications Medication Instructions Recorded Confirmed Type propranolol 20 mg tablet 20 mg PO BID Anxiety 10/17/21 07/31/24 History amlodipine 5 mg tablet 5 mg PO DAILY #30 tabs 02/26/22 07/30/24 Rx pantoprazole 20 mg tablet,delayed 20 mg PO BID Heartburn 01/05/24 07/30/24 History release (Protonix) sucralfate 1 gram tablet (Carafate) 1 g PO BID-QID 01/05/24 07/30/24 History lvqxir-smankujn-[id number] 1 cap PO TID 05/24/24 07/30/24 History 10,000-32,000-42,000 unit capsule,delayed rel (Zenpep) trazodone 50 mg tablet 50 mg PO QPM PRN insomnia 05/24/24 07/30/24 History ondansetron 4 mg disintegrating 4 mg PO Q6H PRN nausea and vomiting 07/30/24 07/30/24 History tablet acetaminophen 325 mg tablet 325 mg PO Q4H PRN pain 07/31/24 07/31/24 History naloxone 4 mg/actuation nasal spray 1 spray intranasal Q3M PRN opioid 07/31/24 07/31/24 History overdose Processed by: Pharmacy Medications reviewed in ED?: Yes Medication History completed: Yes Patient Interview: Completed Secondary Source(s): Insurance records [facility] Statement: As the person ultimately responsible for medication therapy, providers are able to order a medication from an existing home medication list in [facility] via the "Reconcile Routine" prior to Confirmation of that medication by litigation support analyst. Such practice is discouraged except when the physician, in their clinical judgment, deems that a medical need exists for a medication without regard to previous use.
[2024-07-31] MEDS: SODIUM CHLORIDE 0.9% 1,000 ML IV SCH ×2 (13:10→16:04)
--- NOTE | 2024-07-31 13:32 | HISTORY & PHYSICAL EXAMINATION ---
Chief Complaint Chief Complaint Chief Complaint: Abdominal pain History of Present Illness Admitted From Admitted From:: Home, with History Obtained From Exam Limitations: None History of Present Illness HPI Comment/Other: 48-year-old male with history of alcoholism in remission, chronic pancreatitis, hypertension. He states he has been doing well with his sobriety until Year. He reports he started drinking 3 cocktails a day starting around the holidays due to stress over Unemployment. He presents Yesterday with abdominal pain. Denies fever, chills, chest pain, dyspnea, urinary abnormalities. In the ER, US abdomen was performed, Which showed hepatic steatosis, small hepatic cysts, normal gallbladder, was not able to visualize pancreas. Initial lipase was 1270, this has come down to 973. Hospitalist was contacted for obs versus admission for acute on chronic alcoholic pancreatitis Meds/Allgy Home Medications Ambulatory Orders Medication Instructions Recorded Confirmed propranolol 20 mg tablet 20 mg PO BID Anxiety 10/17/21 07/31/24 amlodipine 5 mg tablet 5 mg PO DAILY #30 tabs 02/26/22 07/30/24 pantoprazole 20 mg tablet,delayed 20 mg PO BID Heartburn 01/05/24 07/30/24 release (Protonix) sucralfate 1 gram tablet (Carafate) 1 g PO BID-QID 01/05/24 07/30/24 [id number]-gmuzqgyu-kemzxyy 1 cap PO TID 05/24/24 07/30/24 10,000-32,000-42,000 unit capsule,delayed rel (Zenpep) trazodone 50 mg tablet 50 mg PO QPM PRN insomnia 05/24/24 07/30/24 ondansetron 4 mg disintegrating 4 mg PO Q6H PRN nausea and vomiting 07/30/24 07/30/24 tablet acetaminophen 325 mg tablet 325 mg PO Q4H PRN pain 07/31/24 07/31/24 naloxone 4 mg/actuation nasal spray 1 spray intranasal Q3M PRN opioid 07/31/24 07/31/24 overdose Allergies Allergies Allergy/AdvReac Type Severity Reaction Status Date / Time No Known Drug Allergies Allergy Verified 07/30/24 17:18 PFSH Medical History Medical History (Updated 07/31/24 @ 13:42 by Marco A Barton DNP) Hypertension Problem List clean-up per request of Phys. EHR Cmte Gallstone Surgical History Surgical History History of ERCP Social History Social History Smoking Status: Current every day smoker If you are a former smoker, when did you quit? (Date/Year): n/a Number of Years Smoked: 30 How many cigarettes a day do you smoke? (20 cigarettes=1 Pk): 15 Second hand tobacco smoke exposure: Yes Do you dip or chew tobacco?: No Do you vape?: No Patient requests smoking cessation consult: No Initiate information on smoking cessation: No Living arrangement: At home Living Condition: With family Relationship: Level: Independent Do you feel safe in your home environment?: Yes Suffered physical, verbal, emotional, or financial abuse?: No History of Abuse: No Frequency: Occasional Substance Use: denies use Are you sexually active?: Yes POLST Patient has POLST: No POLST Status: Full Code Review of Systems Status of ROS: 10 or more systems reviewed and unremarkable except as noted in history and below Constitutional Denies: Fever or Chills Cardiovascular Denies: Irregular heart rate, chest pain or shortness of breath with exertion Respiratory Denies: Shortness of breath or Cough Gastrointestinal Reports: Abdominal pain Neurological Denies: General weakness Psychiatric Reports: Anxiety Exam Constitutional normal general appearance and no apparent distress HENMT normocephalic and head/scalp atraumatic Eyes PERRL Neck/C-Spine visual inspection normal Lymph no lymphadenopathy noted Chest inspection of chest normal Respiratory breath sounds equal bilaterally Cardiovascular normal heart rate noted and regular rhythm noted Gastrointestinal abdomen normal to inspection Genitourinary no CVA tenderness No CVA tenderness to percussion Back/Pelvis M/S back pain Neurology rules examiner II-XII intact and GCS 15 Psychiatry oriented x3 Skin skin color normal Conclusion/Plan Problem List (1) Acute pancreatitis: Plan: Received IVF in ER Ordered additional 2 L bolus After that, NS at 200 Clear liquid diet Restarting his pancreatic enzymes with meals We are again recommending that he never drink again Dilaudid 0.5 mg IV every 2 hours as needed severe pain Qualifiers: Acute pancreatitis complication: unspecified Pancreatitis type: alcohol induced Qualified Code(s): K85.20 - Alcohol induced acute pancreatitis without necrosis or infection (2) Alcohol abuse: Plan: He states that he has been sober since his last admission in April. He has been experiencing anxiety during the holiday season, especially with his state of unemployment. He reports that he started drinking a few cocktails every day. Reports good nutrition, I am not concerned for alcohol withdrawal at this time. If he begins to exhibit any signs of withdrawal, will initiate CIWA protocol. I will ask social work to check in with him regarding resources to help with his sobriety Plan Placed in observation Full code His is his surrogate decision-maker Lab Results Lab results reviewed: Yes 07/31/24 05:28 07/31/24 05:28 Core Measures Anticipated LOS I expect patient to be DC'd or transferred within 96 hours.: Yes DVT/VTE - Prophylaxis VTE/DVT Prophylaxis med ordered at admit?: Yes
[2024-07-31] MEDS: HYDROmorphone 0.5 MG/0.5 ML SYRINGE IVP PRN (13:55)
[2024-07-31] MEDS ORDERED: ACETAMINOPHEN 325 MG TABLET PO PRN (14:02)
[2024-07-31] MEDS ORDERED: ONDANSETRON ODT 4 MG TABLET PO PRN (14:02)
[2024-07-31] MEDS ORDERED: traZODone 50 MG TABLET PO PRN (14:02)
[2024-07-31] MEDS: SODIUM CHLORIDE FLUSH 0.9% 10 ML SYRINGE IVP PRN (14:55)
[2024-07-31] MEDS: SODIUM CHLORIDE FLUSH 0.9% 10 ML SYRINGE IVP SCH (16:03)
[2024-07-31] MEDS: LIPASE/PROTEASE/AMYLASE CAPSULE PO SCH (16:03)
[2024-07-31] MEDS: SUCRALFATE 1 GM/10 ML UDC PO SCH (16:03)
[2024-07-31] MEDS: PANTOPRAZOLE 40 MG TABLET PO SCH (16:03)
[2024-07-31] MEDS: PROPRANOLOL 10 MG TABLET PO SCH (20:16)
[2024-07-31] MEDS ORDERED: PANTOPRAZOLE 20 MG PO SCH (21:00)
[2024-07-31] MEDS ORDERED: AMYLASE PO SCH (22:00)
[2024-07-31] MEDS ORDERED: PROTEASE PO SCH (22:00)
[2024-07-31] MEDS ORDERED: LIPASE PO SCH (22:00)
[2024-08-01 06:22] LABS: BASOPHILS % (AUTO) 0.4 %; EOSINOPHILS # (AUTO) 0.2 10^3/uL (0.0-0.7); EOSINOPHILS % (AUTO) 2.6 %; HCT - HEMATOCRIT 33.5 % (42.0-52.0); HGB - HEMOGLOBIN 11.2 g/dL (14.0-18.0); LYMPHOCYTES % (AUTO) 24.4 %; MEAN CORPUSCULAR HEMOGLOBIN 30.6 pg (27.0-31.0); MEAN CORPUSCULAR HGB CONC 33.4 g/dL (32.0-36.0); MEAN CORPUSCULAR VOLUME 91.5 fL (80.0-94.0); MEAN PLATELET VOLUME 9.1 fL (7.4-11.4); MONOCYTES # (AUTO) 0.7 10^3/uL (0.0-1.0); MONOCYTES % (AUTO) 8.6 %; NEUTROPHILS # (AUTO) 5.2 10^3/uL (1.5-6.6); NEUTROPHILS % (AUTO) 63.6 %; PLT - PLATELET COUNT 156 10^3/uL (130-450); RED BLOOD COUNT 3.66 10^6/uL (4.70-6.10); RED CELL DISTRIBUTION WIDTH 16.6 % (12.0-15.0); WHITE BLOOD COUNT 8.2 x10^3/uL (4.8-10.8)
[2024-08-01 06:37] LABS: CALCIUM 7.3 mg/dL (8.5-10.3); CREATININE 0.7 mg/dL (0.6-1.3)
[2024-08-01] MEDS: amLODIPine 5 MG TABLET PO SCH (08:15)
[2024-08-01] MEDS: ENOXAPARIN 40 MG/0.4 ML SYRINGE SUBQ SCH (08:16)
[2024-08-01] MEDS: oxyCODONE 5 MG TABLET PO PRN (11:16)
[2024-08-01] MEDS: THIAMINE 100 MG TABLET PO SCH (11:16)
[2024-08-01] MEDS: PRENATAL VITAMIN TABLET PO SCH (11:17)
[2024-08-01 15:46] VITALS: BP 147/97; TEMP 97.7; O2SAT 97
--- NOTE | 2024-08-01 16:13 | Discharge Summary ---
"Discharge Summary Admit Date: 07/31/24 Discharge Date: 08/01/24 Discharging Provider: Sarah Sanchez PA-C Primary Care Provider: Hudson Bryan Code Status: Attempt Resuscitation DIAGNOSES Discharge Diagnoses with Status of Each Condition: Acute pancreatitis, treated. Alcohol abuse, recurrent, exacerbating and remitting. HPI History of Present Illness: 48-year-old male with history of alcoholism in remission, chronic pancreatitis, hypertension. He states he has been doing well with his sobriety until New . He reports he started drinking 3 cocktails a day starting around the holidays due to stress over Unemployment. He presents Yesterday with abdominal pain. Denies fever, chills, chest pain, dyspnea, urinary abnormalities. In the ER, US abdomen was performed, Which showed hepatic steatosis, small hepatic cysts, normal gallbladder, was not able to visualize pancreas. Initial lipase was 1270, this has come down to 973. Hospitalist was contacted for obs versus admission for acute on chronic alcoholic pancreatitis CONSULTS | PROCEDURES Procedures: Abdominal ultrasound: Hepatic steatosis. No solid appearing hepatic lesion hepatic cysts. Normal gallbladder without biliary ductal dilatation pancreas not visualized due to overlying bowel gas. Normal-appearing right kidney HOSPITAL COURSE Hospital Course: (1) Acute pancreatitis: Received IV fluids in the emergency department and then on the floor. He was started on a clear liquid diet. And advance to a regular diet on hospital day 2 which he tolerated well. He was transition from IV to p.o. narcotics on hospital day 2 and his pain was controlled Clear liquid diet Restarting his pancreatic enzymes with meals We are again recommending that he never drink again He has had pancreatic stenting and subsequent removal on 06/13/24 per his report. (2) Alcohol abuse: Plan: He states that he has been sober since his last admission in April. He has been experiencing anxiety during the holiday season, especially with his state of unemployment. He reports that he started drinking a few cocktails every day. Reports good nutrition, I am not concerned for alcohol withdrawal at this time. He did not experience any symptoms of alcohol withdrawal. He was offered recovery resources through social work. ALLERGIES Allergies Allergy/AdvReac Type Severity Reaction Status Date / Time No Known Drug Allergies Allergy Verified 07/30/24 17:18 MEDICATIONS Ambulatory Orders Medication Instructions Recorded Confirmed propranolol 20 mg tablet 20 mg PO BID Anxiety 10/17/21 07/31/24 amlodipine 5 mg tablet 5 mg PO DAILY #30 tabs 02/26/22 07/30/24 pantoprazole 20 mg tablet,delayed 20 mg PO BID Heartburn 01/05/24 07/30/24 release (Protonix) sucralfate 1 gram tablet (Carafate) 1 g PO BID-QID 01/05/24 07/30/24 [id number] 1 cap PO TID 05/24/24 07/30/24 10,000-32,000-42,000 unit capsule,delayed rel (Zenpep) trazodone 50 mg tablet 50 mg PO QPM PRN insomnia 05/24/24 07/30/24 acetaminophen 325 mg tablet 325 mg PO Q4H PRN pain 07/31/24 07/31/24 naloxone 4 mg/actuation nasal spray 1 spray intranasal Q3M PRN opioid 07/31/24 07/31/24 overdose ondansetron 4 mg disintegrating 4 mg PO Q6H PRN nausea and 08/01/24 tablet vomiting #20 tabs oxycodone 5 mg tablet 10 mg (2 x 5 mg) PO Q4HR PRN 08/01/24 Moderate Pain (Level 4-6) #20 tabs PHYSICAL EXAM AT DISCHARGE General Appearance: positive No acute distress and Alert Eyes Bilateral: positive Normal inspection and Conjunctivae nml ENT: positive ENT inspection nml Neck: positive Nml inspection Respiratory: positive No respiratory distress and Breath sounds nml Cardiovascular: positive Regular rate & rhythm Abdomen: positive No distention and Tenderness (mild epigastric and LUQ TTP) Back: positive Nml inspection Skin: positive Color nml and No rash Extremities: positive Non-tender and No pedal edema Neurologic/Psychiatric: positive Oriented x3 LABS 08/01/24 05:47 08/01/24 05:47 FOLLOW UP Follow Up: [facility] as per schedule. TIME SPENT Time Spent in Discharge (Minutes): 35 Discharge Plan Discharge Patient Disposition: Home, Self Care Condition: Stable Prescriptions: New oxycodone 5 mg Tablet 10 mg PO Q4HR PRN (Reason: Moderate Pain (Level 4-6)) Qty: 20 0RF ondansetron 4 mg Tablet,Disintegrating 4 mg PO Q6H PRN (Reason: nausea and vomiting) Qty: 20 0RF Continued propranolol 20 MG tablet 20 mg PO BID Patient Comments: take 1 tablet by mouth twice a day if needed amlodipine 5 MG tablet 5 mg PO DAILY Qty: 30 0RF sucralfate [Carafate] 1 GM tablet 1 g PO BID-QID pantoprazole [Protonix] 20 MG tablet,delayed release (DR/EC) 20 mg PO BID Zenpep 10,000-32,000 -42,000 unit capsule,delayed release(DR/EC) 1 cap PO TID trazodone 50 mg tablet 50 mg PO QPM PRN (Reason: insomnia) acetaminophen 325 mg tablet 325 mg PO Q4H PRN (Reason: pain) naloxone 4 mg/actuation spray,non-aerosol 1 spray INTRANASAL Q3M PRN (Reason: opioid overdose) Patient Comments: CALL 911 ADMINISTER A SINGLE spray INTO ONE NOSTRIL repeat in 3 MINUTES IF NO OR MINIMAL RESPONSE Discontinued ondansetron 4 mg tablet,disintegrating 4 mg PO Q6H PRN (Reason: nausea and vomiting) Diet: Regular Interventions: Discharge Last Done: 08/01/24 16:30 Discharge Checklist - Nursing Last Done: 08/01/24 16:30 Health Concerns: You came into the hospital with an exacerbation of your pancreatitis. You know that if you drink alcohol this is very likely to happen to you. I hope that everything goes well and that you are able to transition your employment over to the [employer]. I think it would be really good for you and most importantly good for your family. Remember that every day that you do not drink as the day towards a better you and better health. Keep trying to fight to stay alcohol free. I know it is not easy for you. Keep your appointments with primary care and gastroenterology. Return at any time that you need. Thank you for entrusting us with your care Print Language: Hong Konger Patient Instructions: Pancreatitis Follow-up Care: HUDSON BRYAN MD [Physician No Access] -"
== END 2024-08-01 16:32 | disposition home or self-care (01) ==
LOC: ED 16:43 → MS2 16:43
PROVIDERS: ADMIT Nurse Practitioner Acute Care; ATTEND Nurse Practitioner Acute Care
DX: K76.0 Fatty (change of) liver, not elsewhere classified; F17.210 Nicotine dependence, cigarettes, uncomplicated; I10 Essential (primary) hypertension; K86.0 Alcohol-induced chronic pancreatitis; K85.20 Alcohol induced acute pancreatitis without necrosis or infection; F10.20 Alcohol dependence, uncomplicated; K76.89 Other specified diseases of liver

== ENCOUNTER 2024-12-10 12:39 | Inpatient (IN) ==
--- OUTSIDE RECORDS SUMMARY | 2024-12-10 13:10 | EXTERNAL MEDICAL SUMMARY RPT | Continuity of Care Document ---
Author Organization [facility] Address [address] [place] [id number] Phone Problems date description facility 2024-09-27 15:47 [facility] abuse, uncomplicated [email or web address] 2024-09-27 15:47 Alcohol induced acut e pancreatitis without necrosis or infection [email or web address] 2024-09-27 15:47 Epigastric pain [email or web address] 2024-09-30 14:20 Alcohol induced acut e pancreatitis without necrosis or infection [email or web address] 2024-09-30 15:38 Alcohol induced acut e pancreatitis without necrosis or infection [email or web address] 2024-10-02 10:21 Alcohol induced acut e pancreatitis without necrosis or infection [facility] 2024-10-02 10:21 Epigastric pain [email or web address] 2024-10-02 10:21 Nausea with vomiting, unspecifi ed [facility] Results/Labs test date facility value unit notes Result panel 1 ETOH - ETHANOL 2024-09-30 07:33 [facility] < 10.0 mg/dl Blood Alcohol Levels Level Sporadic Drinkers Chronic drinkers 100 mg/dL Legally intoxicated* Minimal signs 200-250 mg/dL Alertness lost, Effort needed to becoming lethargic maintain emotional and motor control 300-350 mg/dL Stupor to coma Drowsy and slow >500 mg/dL Possible Coma *The legal definition of intoxication varies. This assy is for medical decision making only. As of January 2023 testing method has changed, this may include reference ranges. NUCLEATED RED BLOOD CELLS AUTO 2024-09-30 07:33 [facility] 0.0 /100wbc (missing) NRBC ABSOLUTE COUNT (AUTO) 2024-09-30 07:33 [facility] 0.00 x10 3/ul (missing) BASOPHILS # (AUTO) 2024-09-30 07:33 [facility] 0.1 10 3/ul (missing) EOSINOPHILS # (AUTO) 2024-09-30 07[facility] 0.1 10 3/ul (missing) BILIRUBIN,TOTAL 2024-09-30 07:[facility] 0.[facility] mg/dl As of January 2023 test ing method has changed, this may include reference ranges. CREATININE 2024-09-30 07:33 [facility] 0.8 mg/dl As of January 2023 test ing method has changed, this may include reference ranges. MONOCYTES # (AUTO) 2024-09-30 07:[facility] 1[facility]0 10 3/ul (missing) MAGNESIUM 2024-09-30 07:[facility] 1.[facility] mg/dl As of January 2023 test ing method has changed, this may include reference ranges. ALBUMIN/GLOBULIN RATIO 2024-09-30 07:33 [facility] 1.5 (missing) (missing) ALT ALANINE AMINOTRANSFERASE 2024-09-30 07:33 [facility] 10 iu/l As of January 2023 test ing method has changed, this may include reference ranges. GFR - MDRD 2024-09-30 07:33 [facility] 103 (missing) Social History date description facility
[2024-12-10 14:05] LABS: BASOPHILS # (AUTO) 0.1 10^3/uL (0.0-0.1); BASOPHILS % (AUTO) 0.3 %; EOSINOPHILS % (AUTO) 0.2 %; HGB - HEMOGLOBIN 14.2 g/dL (14.0-18.0); LYMPHOCYTES # (AUTO) 1.9 10^3/uL (1.5-3.5); LYMPHOCYTES % (AUTO) 10.4 %; MEAN CORPUSCULAR HEMOGLOBIN 30.7 pg (27.0-31.0); MEAN CORPUSCULAR VOLUME 93.1 fL (80.0-94.0); MEAN PLATELET VOLUME 9.1 fL (7.4-11.4); MONOCYTES # (AUTO) 0.6 10^3/uL (0.0-1.0); MONOCYTES % (AUTO) 3.5 %; NEUTROPHILS # (AUTO) 15.5 10^3/uL (1.5-6.6); PLT - PLATELET COUNT 412 10^3/uL (130-450); RED BLOOD COUNT 4.62 10^6/uL (4.70-6.10); RED CELL DISTRIBUTION WIDTH 13.2 % (12.0-15.0); WHITE BLOOD COUNT 18.3 x10^3/uL (4.8-10.8)
[2024-12-10 14:19] LABS: ALBUMIN 4.6 g/dL (3.2-5.5); ALBUMIN/GLOBULIN RATIO 1.4 (1.0-2.2); BILIRUBIN,TOTAL 0.7 mg/dL (0.2-1.0); CALCIUM 9.9 mg/dL (8.5-10.3); CREATININE 0.8 mg/dL (0.6-1.3); POTASSIUM 3.5 mmol/L (3.5-4.5)
[2024-12-10] MEDS: ONDANSETRON 4 MG/2 ML VIAL IVP STA (14:26)
[2024-12-10] MEDS: SODIUM CHLORIDE 0.9% 1,000 ML IV STA (14:26)
[2024-12-10] MEDS ORDERED: iohexoL-300 100 ML VIAL ONE (14:27)
[2024-12-10] MEDS: HYDROmorphone 0.5 MG/0.5 ML SYRINGE IVP STA (14:27)
--- NOTE | 2024-12-10 14:49 | ED Physician Documentation ---
PD HPI ABD PAIN Stated complaint Stated Complaint: BACK PX, VOMIT Chief complaint Chief Complaint: Abd Pain History obtained from History obtained from: Patient Additional information Additional information: This is a 48-year-old male who has a history of chronic and recurrent pancreatitis secondary to alcohol use as well as prior pancreatic duct stone for which he had a stent has since been removed, he also has a history of a GI bleed, and portal vein thrombosis. He was previously on anticoagulation but it sounds like this was stopped with his GI bleed. He is here today with pain that radiates from his mid back to the right side of the abdomen into the right lower quadrant and some on the left side as well. Feels similar but worsening. Lots of pancreatitis. He has also had nausea and some episodes of nonbloody emesis. He last ate last night, had pizza for dinner, felt like that was okay but then pain worsened overnight and into today. He has been using heating pad with some relief but still has quite a bit of pain. He has cut down substantially on alcohol use but does state he had 2 beers 3 days ago and does continue to drink beer on occasion. Review of Systems Status of ROS: 10 or more systems reviewed and unremarkable except as noted in history and below Constitutional Reports: Poor appetite; Denies: Fatigue, Fever, Chills, Malaise, Weakness or Diaphoresis Ears, nose, mouth, and throat Denies: Difficulty swallowing Cardiovascular Denies: Irregular heart rate, chest pain, palpitations, edema, swelling of feet/ankles, Syncope, lightheadedness, shortness of breath with exertion or shortness of breath when lying down Respiratory Denies: Shortness of breath, Cough or Sputum production Gastrointestinal Reports: Abdominal pain, Nausea, Vomiting, Poor appetite and Heartburn; Denies: Abdominal distention, Ramesh blood emesis, Coffee grounds in vomit, Diarrhea, Constipation, Bloating, Belching, Difficulty swallowing, Change in bowel habits, Rectal bleeding, Rectal pain, Melena or Blood in stool Genitourinary Denies: Painful urination, Flank pain, Incontinence, Urinary frequency or Urinary urgency Musculoskeletal Reports: Back pain Endocrine Denies: Fatigue Meds/Allgy Home Medications Ambulatory Orders Medication Instructions Recorded Confirmed propranolol 20 mg tablet 20 mg PO BID Anxiety 2 07/31/24 amlodipine 5 mg tablet 5 mg PO DAILY #30 tabs 02/2607/30/24 pantoprazole 20 mg tablet,delayed 20 mg PO BID Heartbu rn 01/05/24 07/30/24 release (Protonix) sucralfate 1 gram tablet (Carafate) 1 g PO BID-QID 07/30/24 rcnitz-vwdxfpti-avbpfjk 1 cap PO TID 05/24/24 10,000-32,000-42,000 unit capsule,delayed rel (Zenpep) trazodone 50 mg tablet 50 mg PO QPM PRN insomnia 07/30/24 acetaminophen 325 mg tablet 325 mg PO Q4H PRN pain 02/1507/31/24 naloxone 4 mg/actuation nasal spray 1 spray intranasal Q3M PRN opioid 07/31/24 07/31/24 overdose ondansetron 4 mg disintegrating 4 mg PO Q6H PRN nausea and 08/01/24 tablet vomiting #20 tabs oxycodone 5 mg tablet 10 mg (2 x 5 mg) PO Q4HR PRN 08/01/24 Moderate Pain (Level 4-6) #20 tabs hydrocodone 5 mg-acetaminophen 325 1 tab PO Q4H PRN pa in #14 tabs 09/30/24 mg tablet promethazine 25 mg tablet 25 mg PO QID PRN nausea and 09/30/24 vomiting #14 tabs Allergies Allergies Allergy/AdvReac Type Severity Reaction Status Date / Time No Known Drug Allergies Allergy Verified 12/10/24 12:42 PFSH Active Problems All Active Problems (Updated 12/10/24 @ 16:18 by SUHAIL Mitchell) Acute pancreatitis (Acute) Abdominal pain (Acute) Medical History Medical History (Updated 12/10/24 @ 16:18 by SUHAIL Mitchell) Hypertension Problem List [facility] Surgical History History of ERCP Social History Social History Smoking Status: Current every day smoker If you are a former smoker, when did you quit? (Date/Year): n/a Number of Years Smoked: 20 How many cigarettes a day do you smoke? (20 cigarettes=1 Pk): 15 Second hand tobacco smoke exposure: No Do you dip or chew tobacco?: Yes (occasional) Do you vape?: No Patient requests smoking cessation consult: No Initiate information on smoking cessation: No Living arrangement: At home Living Condition: With family Relationship: Level: Independent Do you feel safe in your home environment?: Yes Suffered physical, verbal, emotional, or financial abuse?: No History of Abuse: No Frequency: Occasional Substance Use: denies use Are you sexually active?: Yes POLST Patient has POLST: No POLST Status: Full Code Exam Exam Vital Signs: Vital Signs x48h Temp Pulse Resp BP Pulse Ox 12/10/24 15:00 96 20 180/103 H 94 12/10/24 12:42 37.0 C 100 18 170/100 H 98 Constitutional normal general appearance, no apparent distress, average body habitus, no limitations and alert HENMT normocephalic and oral mucous membranes normal Chest inspection of chest normal and palpation of chest normal Respiratory breath sounds equal bilaterally, normal respiratory effort, clear to auscultation bilaterally, no wheezes, no rales, no retractions and no use of accessory muscles Cardiovascular normal heart rate noted, regular rhythm noted, no murmur, no JVD, no clicks and peripheral pulses 2+ throughout Gastrointestinal abdomen normal to inspection, abdomen soft to palpation, tender to palpation, nondistended and normoactive bowel sounds generaized upper abdominal ttp Back/Pelvis spine normal to inspection, no thoracic spine tenderness, no lumbar spine tenderness, thoracic spine ROM normal and lumbar spine ROM normal Extremities normal to inspection, normal to palpation and no tenderness Neurology GCS 15 Psychiatry mental status grossly normal and oriented x3 Skin skin color normal, no rash, no wounds and no lacerations Results Vitals Vitals: Vital Signs - 24 hr 12/10/24 12:42 12/10/24 13:50 12/10/24 14:27 Temperature 37.0 C Temperature Source Oral Pulse Rate 100 Respiratory Rate 18 Blood Pressure 170/100 H O2 Saturation 98 O2 Source Room air Pain Intensity 9 10 10 12/10/24 15:00 12/10/24 15:07 12/10/24 15:07 Temperature Temperature Source Pulse Rate 96 Respiratory Rate 20 Blood Pressure 180/103 H O2 Saturation 94 O2 Source Room air Pain Intensity 5 8 8 12/10/24 16:12 12/10/24 16:17 Temperature Temperature Source Pulse Rate Respiratory Rate Blood Pressure O2 Saturation O2 Source Pain Intensity 6 8 Oxygen O2 Source Room air Labs Labs: Laboratory Tests 12/10/24 12/10/24 13:56 16:14 WBC 18.3 H RBC 4.62 L Hgb 14.2 Hct 43.0 MCV 93.1 MCH 30.7 MCHC 33.0 RDW 13.2 Plt Count 412 MPV 9.1 Neut # (Auto) 15.5 H Lymph # (Auto) 1.9 Dickenson # (Auto) 0.6 Eos # (Auto) 0.0 Baso # (Auto) 0.1 Absolute Nucleated RBC 0.00 Nucleated RBC % 0.0 Sodium 137 Potassium 3.5 Chloride 98 L Carbon Dioxide 27 Anion Gap 12.0 BUN 8 Creatinine 0.8 Estimated GFR (MDRD) 103 Glucose 137 H Calcium 9.9 Total Bilirubin 0.7 AST 16 ALT 8 L Alkaline Phosphatase 105 Total Protein 8.0 Albumin 4.6 Globulin 3.4 Albumin/Globulin Ratio 1.4 Lipase 913 H Urine Color YELLOW Urine Clarity CLEAR Urine pH 6.0 Ur Specific [place] <=1.005 Urine Protein TRACE Urine Glucose (UA) NEGATIVE Urine Ketones 15 H Urine Occult Blood NEGATIVE Urine Nitrite NEGATIVE Urine Bilirubin NEGATIVE Urine Urobilinogen 0.2 (NORMAL) Ur Leukocyte Esterase NEGATIVE Ur Microscopic Review NOT INDICATED Urine Culture Comments NOT INDICATED Rads (name of study) CT abd: Relevant Findings:: Final report received PD Medical Decision Making ED course Complexity details: reviewed old records, reviewed results, re-evaluated patient, considered differential and d/w patient ED course: This is a very nice 48-year-old male who has a history of recurrent pancreatitis, prior alcohol use, prior GI bleed who presents with upper abdominal pain rating from the back into the upper abdomen. Feels fairly similar to prior bouts of pancreatitis. He has had accompanying nausea and v omiting. There is concern for possible pancreatitis, I also consider cholecystitis or cholelithiasis, ureteral stone, UTI, constipation, obstipation, bowel obstruction, gastritis/GERD/PUD, among other differentials. We obtained labs which are notable for white blood count of 18,000, stable hemoglobin hematocrit and CMP. His CT abdomen pelvis shows acute on likely chronic pancreatitis. There is also a chronic appearing portal vein and splenic vein thrombosis. I discussed the potential anticoagulation with the patient for this and he states that he has had a fairly significant GI bleed in the past and therefore has declined at this time. He was given multiple different doses of IV Dilaudid as well as IV fluids and IV Zofran here. He has had slight improvement in his pain but does not feel that he can manage it at home. We therefore will admit for pancreatitis and pain control. He was strongly urged to abstain completely from alcohol use in the future as this is a antecedent to his problems. He states understanding. I have spoken with the hospitalist who has very kindly agreed to evauate this patient for admission. Discharge Plan Discharge Patient Disposition: [facility] DC/Xfer Condition: Stable Clinical Impression: Acute pancreatitis Qualifiers: Pancreatitis type: alcohol induced Acute pancreatitis complication: unspecified Qualified Code(s): K85.20 - Alcohol induced acute pancreatitis without necrosis or infection Prescriptions: No Action propranolol 20 MG tablet 20 mg PO BID Patient Comments: take 1 tablet by mouth twice a day if needed amlodipine 5 MG tablet 5 mg PO DAILY Qty: 30 0RF sucralfate [Carafate] 1 GM tablet 1 g PO BID-QID pantoprazole [Protonix] 20 MG tablet,delayed release (DR/EC) 20 mg PO BID Zenpep 10,000-32,000 -42,000 unit capsule,delayed release(DR/EC) 1 cap PO TID trazodone 50 mg tablet 50 mg PO QPM PRN (Reason: insomnia) acetaminophen 325 mg tablet 325 mg PO Q4H PRN (Reason: pain) naloxone 4 mg/actuation spray,non-aerosol 1 spray INTRANASAL Q3M PRN (Reason: opioid overdose) Patient Comments: CALL 911 ADMINISTER A SINGLE spray INTO ONE NOSTRIL repeat in 3 MINUTES IF NO OR MINIMAL RESPONSE oxycodone 5 mg Tablet 10 mg PO Q4HR PRN (Reason: Moderate Pain (Level 4-6)) Qty: 20 0RF ondansetron 4 mg Tablet,Disintegrating 4 mg PO Q6H PRN (Reason: nausea and vomiting) Qty: 20 0RF hydrocodone-acetaminophen 5-325 mg tablet 1 tab PO Q4H PRN (Reason: pain) Qty: 14 0RF promethazine 25 mg tablet 25 mg PO QID PRN (Reason: nausea and vomiting) Qty: 14 0RF Print Language: Tongan
[2024-12-10] MEDS: iohexoL-300 100 ML VIAL IVP ONE (15:00)
[2024-12-10] MEDS: HYDROmorphone 1 MG/ML CARPUJECT IVP STA ×2 (15:07→16:17)
--- NOTE | 2024-12-10 15:14 | CT Report ---
PROCEDURE: CT Abdomen/Pelvis W INDICATIONS: abdominal pain, recurrent pancreatitis CONTRAST: OMNI 300 100 ML TECHNIQUE: After the administration of intravenous contrast, a CT scan of the abdomen and pelvis was performed. Images were recorded and evaluated at appropriate window settings. Reformats: coronal and sagittal. For radiation dose reduction, the following was used: automated exposure control, adjustment of mA and/or kV according to patient size. COMPARISON: CT abdomen and pelvis dated 05/23/2024. FINDINGS: Image quality: Diagnostic. Lower chest: Unremarkable. Liver: No solid mass. Gallbladder: No radiopaque stones or wall thickening. Biliary tree: No intrahepatic or extrahepatic dilation, accounting for age. Spleen: No splenomegaly. Pancreas: The pancreatic duct stent is no longer in place. Pancreatic ductal dilatation is similar to previous. Pancreatic edema and mild peripancreatic fluid is consistent with acute pancreatitis. Increasing peripancreatic region calcifications are consistent with chronic pancreatitis, present previously. Adrenals: No adrenal nodule. Kidneys and ureters: No hydronephrosis. No renal cystic lesion which requires follow up. No solid mass. Stomach, bowel and peritoneum: No gastric or small bowel dilation. No abnormal wall thickening. No pathologic free fluid. Diverticulosis without evidence of diverticulitis. Lymph nodes: No central or retroperitoneal adenopathy. Vessels: No infrarenal aortic aneurysm. Patent portal vein. Question interval main portal vein and left main portal vein and splenic vein thrombosis, now chronic, with increase in upper abdominal varicosities, with extensive gastric varicosities noted. PELVIS Reproductive organs: Unremarkable. Bladder: No abnormal wall thickening. Pelvic lymph nodes: No pelvic adenopathy by size criteria. Bones: No aggressive osseous abnormality. Other: No significant ventral or inguinal hernia. IMPRESSION: 1. Interval removal of pancreatic duct stent. 2. Recurrent acute pancreatitis superimposed on chronic pancreatitis. 3. Findings suggest interval thrombosis of the main portal vein and likely the splenic vein and left main portal vein, likely chronic at this point. 4. Upper abdominal varicosities, including extensive gastric varicosities. 5. Diverticulosis. Reviewed by: Jules Dominguez MD on 12/10/2024 3:13 PM PDT Approved by: Jules Dominguez MD on 12/10/2024 3:13 PM PDT Station ID: [id number]
[2024-12-10 16:28] LABS: BILIRUBIN,URINE NEGATIVE (NEGATIVE); GLUCOSE, URINE (UA) NEGATIVE (NEGATIVE); KETONES,URINE (UA) 15 mg/dL (NEGATIVE); LEUKOCYTE ESTERASE, URINE NEGATIVE (NEGATIVE); NITRITE,URINE NEGATIVE (NEGATIVE); OCCULT BLOOD,URINE NEGATIVE (NEGATIVE); PROTEIN,URINE TRACE mg/dL (NEGATIVE); UROBILINOGEN,URINE 0.2 (NORMAL) E.U./dL (NORMAL)
[2024-12-10 16:41] LABS: CLARITY,URINE CLEAR (CLEAR)
--- OUTSIDE RECORDS SUMMARY | 2024-12-10 17:30 | EXTERNAL MEDICAL SUMMARY RPT | Continuity of Care Document ---
Author Organization [facility] Address [address] [place] [id number] Phone Problems date description facility 2024-09-27 15:47 Alcohol abuse, uncomplicated [facility] 2024-09-27 15:47 Alcohol induced acut e pancreatitis without necrosis or infection [facility] 2024-09-27 15:47 Epigastric pain [facility] 2024-09-30 14:20 Alcohol induced acut e pancreatitis without necrosis or infection [facility] 2024-09-30 15:38 Alcohol induced acut e pancreatitis without necrosis or infection [facility] 2024-10-02 10:21 Alcohol induced acut e pancreatitis without necrosis or infection [facility] 2024-10-02 10:21 Epigastric pain [facility] 2024-10-02 10:21 Nausea with vomiting, unspecifi ed [facility] Results/Labs test date facility value unit notes Result panel 1 ETOH - ETHANOL 2024-09-30 07:33 [facility] < 10.0 mg/dl Blood Alcohol Levels Level [...] NUCLEATED RED BLOOD CELLS AUTO 2024-09-30 07:33 [facility] 0.0 /100wbc (missing) NRBC ABSOLUTE COUNT (AUTO) 2024-09-30 07:33 [facility] 0.00 x10 3/ul (missing) BASOPHILS # (AUTO) 2024-09-30 07:33 [facility] 0.1 10 3/ul (missing) EOSINOPHILS # (AUTO) 2024-09-30 07:33 [facility] 0.1 10 3/ul (missing) BILIRUBIN,TOTAL 2024-09-30 07:33 [facility] 0.[facility] mg/dl As of January 2023 test ing method has changed, this may include reference ranges. CREATININE 2024-09-30 07:33 [facility] 0.8 mg/dl As of January 2023 test ing method has changed, this may include reference ranges. MONOCYTES # (AUTO) 2024-09-30 07[facility]0 10 3/ul (missing) MAGNESIUM 2024-09-30 07:[facility] 1.[facility] mg/dl As of January 2023 test ing method has changed, this may include reference ranges. ALBUMIN/GLOBULIN RATIO 2024-09-30 07:33 [facility] [facility] 1.5 (missing) (missing) ALT ALANINE AMINOTRANSFERASE 2024-09-30 07:33 [facility] 10 iu/l As of January 2023 test ing method has changed, this may include reference ranges. GFR - MDRD 2024-09-30 07:33 [facility] 103 (missing) Social History date description facility
[2024-12-10] MEDS ORDERED: ONDANSETRON 4 MG/2 ML VIAL IVP PRN (17:31)
[2024-12-10] MEDS ORDERED: ACETAMINOPHEN 325 MG TABLET PO PRN (17:31)
[2024-12-10] MEDS ORDERED: traZODone 50 MG TABLET PO PRN (17:35)
[2024-12-10] MEDS: MORPHINE 2 MG/ML CARPUJECT IVP PRN (17:52)
[2024-12-10] MEDS: SODIUM CHLORIDE 0.9% 1,000 ML IV SCH (17:56)
[2024-12-10] MEDS: PROCHLORPERAZINE 10 MG/2 ML VIAL IVP PRN (18:01)
--- NOTE | 2024-12-10 18:16 | HISTORY & PHYSICAL EXAMINATION ---
Chief Complaint Chief Complaint Chief Complaint: Abdominal pain, back pain History of Present Illness Admitted From Admitted From:: Emergency department History Obtained From Records Reviewed: Emergency department records, previous admission records History obtained from: Patient, emergency department [facility] Exam Limitations: None History of Present Illness HPI Comment/Other: Patient is a 48-year-old man with a long history of chronic recurrent pancreatitis, history of pancreatic stent since removed, alcoholism, esophageal varices, hypertension, chronic pain on opiatesWho presents to the ER with midepigastric and bilateral back pain since yesterday. Patient says it started about midday. Got worse when he had pizza for dinner. He says his last alcoholic drink was 5 days ago. He has been cutting back on alcohol significantly. He denies any fever or chills. He has had dry heaving but no significant vomiting. He denies any hemoptysis or hematemesis. Here in the ED the patient was hypertensive and mildly tachycardic with heart rate of 100. Temperature was normal as well as pulse ox. WBC was 18. Lipase was significantly elevated at 913. CT was remarkable for interval removal of pancreatic duct stent, recurrent acute pancreatitis superimposed on chronic pancreatitis as well as new finding of portal vein thrombosis and likely splenic vein and left main portal vein which were noted to appear chronic according to the radiologist. He is also noted to have extensive gastric varicosities as well as diverticulosis. He was diagnosed with acute pancreatitis and given IV fluids and pain medication and hospital admission was requested. Meds/Allgy Home Medications Ambulatory Orders Medication Instructions Recorded Confirmed propranolol 20 mg tablet 20 mg PO BID Anxiety 2 07/31/24 amlodipine 5 mg tablet 5 mg PO DAILY #30 tabs 02/2607/30/24 pantoprazole 20 mg tablet,delayed 20 mg PO BID Heartbu r[facility] 01/05/24 07/30/24 release (Protonix) sucralfate 1 gram tablet (Carafate) 1 g PO BID-QID 07/30/24 hejcqk-[id number]-svjswyt 1 cap PO TID 05/24/24 10,000-32,000-42,000 unit capsule,delayed rel (Zenpep) trazodone 50 mg tablet 50 mg PO QPM PRN insomnia 07/30/24 acetaminophen 325 mg tablet 325 mg PO Q4H PRN pain 02/1507/31/24 naloxone 4 mg/actuation nasal spray 1 spray intranasal Q3M PRN opioid 07/31/24 07/31/24 overdose ondansetron 4 mg disintegrating 4 mg PO Q6H PRN nausea and 08/01/24 tablet vomiting #20 tabs oxycodone 5 mg tablet 10 mg (2 x 5 mg) PO Q4HR PRN 08/01/24 Moderate Pain (Level 4-6) #20 tabs hydrocodone 5 mg-acetaminophen 325 1 tab PO Q4H PRN pa in #14 tabs 09/30/24 mg tablet promethazine 25 mg tablet 25 mg PO QID PRN nausea and 09/30/24 vomiting #14 tabs Allergies Allergies Allergy/AdvReac Type Severity Reaction Status Date / Time No Known Drug Allergies Allergy Verified 12/10/24 12:42 PFSH Active Problems All Active Problems (Updated 12/10/24 @ 18:27 by Goldy Tanner MD) Gastric varices without bleeding (Acute) Portal vein thrombosis (Acute) Acute pancreatitis (Acute) Abdominal pain (Acute) Medical History Medical History (Updated 12/10/24 @ 18:27 by Goldy Tanner MD) Hypertension Problem List clean-up per request of Phys. EHR Cmte [facility] Surgical History Surgical History History of ERCP Social History Social History Smoking Status: Current every day smoker If you are a former smoker, when did you quit? (Date/Year): n/a Number of Years Smoked: 20 How many cigarettes a day do you smoke? (20 cigarettes=1 Pk): 15 Second hand tobacco smoke exposure: No Do you dip or chew tobacco?: Yes (occasional) Do you vape?: No Patient requests smoking cessation consult: No Initiate information on smoking cessation: No Living arrangement: At home Living Condition: With family Relationship: Level: Independent Do you feel safe in your home environment?: Yes Suffered physical, verbal, emotional, or financial abuse?: No History of Abuse: No Frequency: Occasional Substance Use: denies use Are you sexually active?: Yes POLST Patient has POLST: No POLST Status: Full Code Review of Systems Status of ROS: 10 or more systems reviewed and unremarkable except as noted in history and below Constitutional Reports: Poor appetite; Denies: Fatigue, Fever, Chills, Malaise, Weakness or Diaphoresis Ears, nose, mouth, and throat Denies: Difficulty swallowing Cardiovascular Denies: Irregular heart rate, chest pain, palpitations, edema, swelling of feet/ankles, Syncope, lightheadedness, shortness of breath with exertion or shortness of breath when lying down Respiratory Denies: Shortness of breath, Cough or Sputum production Gastrointestinal Reports: Abdominal pain, Nausea, Vomiting, Poor appetite and Heartburn; Denies: Abdominal distention, Ramesh blood emesis, Coffee grounds in vomit, Diarrhea, Constipation, Bloating, Belching, Difficulty swallowing, Change in bowel habits, Rectal bleeding, Rectal pain, Melena or Blood in stool Genitourinary Denies: Painful urination, Flank pain, Incontinence, Urinary frequency or Urinary urgency Musculoskeletal Reports: Back pain Endocrine Denies: Fatigue Exam Exam Vital Signs: Vital Signs x48h Temp Pulse Resp BP Pulse Ox 12/10/24 17:00 100 18 192/113 H 98 12/10/24 15:00 96 20 180/103 H 94 12/10/24 12:42 37.0 C 100 18 170/100 H 98 Constitutional normal general appearance, no apparent distress, average body habitus, no limitations and alert HENMT normocephalic and oral mucous membranes normal Chest inspection of chest normal and palpation of chest normal Respiratory breath sounds equal bilaterally, normal respiratory effort, clear to auscultation bilaterally, no wheezes, no rales, no retractions and no use of accessory muscles Cardiovascular normal heart rate noted, regular rhythm noted, no murmur, no JVD, no clicks and peripheral pulses 2+ throughout Gastrointestinal abdomen normal to inspection, abdomen soft to palpation, tender to palpation, nondistended and normoactive bowel sounds generaized upper abdominal ttp Back/Pelvis spine normal to inspection, no thoracic spine tenderness, no lumbar spine tenderness, thoracic spine ROM normal and lumbar spine ROM normal Extremities normal to inspection, normal to palpation and no tenderness Neurology GCS 15 Psychiatry mental status grossly normal and oriented x3 Skin skin color normal, no rash, no wounds and no lacerations Conclusion/Plan Problem List (1) Acute on chronic pancreatitis: Plan: * Patient with a known history of alcoholic pancreatitis now with acute on chronic pancreatitis * CT demonstrates removal of previous pancreatic duct stent with diameter similar to previous measurements per radiology * No mention of necrosis or abscess seen on CT scan * Lipase is elevated * I will admit patient to MedSurg * Will keep on clear liquid diet if tolerated * Start as needed pain meds including up to 4 mg morphine every 2 hours * Would have like to use Toradol but given his varices and now his portal vein thrombosis which will need anticoagulation I will avoid this for now (2) Alcohol use disorder: Plan: * This is the likely source of his chronic pancreatitis but he states has been cutting down and has not had a drink in 5 days and does not demonstrate any overt signs of withdrawal such as diaphoresis, tremors, or change in mental status * He does have tachycardia and hypertension but he is known to be hypertensive and typically takes propranolol which he may not have been taking due to the vomiting * I will monitor him for withdrawal symptoms and if necessary initiate CIWA protocol but given his last drink several days ago this is less likely (3) Portal vein thrombosis: Plan: * This is a new finding but appears chronic on CT * I will start him on Lovenox rather than DOAC because of his history of varices, to monitor for signs of bleeding * If he can demonstrate no bleeding, then he may need to be discharged on a DOAC (4) Gastric varices without bleeding: Plan: * Likely secondary to chronic alcoholism * No cirrhosis on CT abdomen * INR is normal * LFTs are normal * Will continue Protonix and Carafate (5) Hypertension: Plan: * Blood pressure is currently elevated, possibly due to pain * I will resume his home medications and if continues to be elevated despite adequate pain control, will add as needed hydralazine Lab Results Lab results reviewed: Yes 12/10/24 13:56 12/10/24 13:56 Diagnostic Imaging Results Diagnostic Imaging Results: positive Final report reviewed Core Measures Anticipated LOS I expect patient to be DC'd or transferred within 96 hours.: Yes
[2024-12-10] MEDS: PANTOPRAZOLE 40 MG VIAL IVP SCH (18:28)
[2024-12-10] MEDS: hydrALAZINE INJ 20 MG/ML VIAL IVP PRN (18:47)
[2024-12-10] MEDS: ENOXAPARIN 80 MG/0.8 ML SYRINGE SUBQ SCH (21:23)
[2024-12-10] MEDS: PROPRANOLOL 10 MG TABLET PO SCH (21:24)
[2024-12-10] MEDS: SUCRALFATE 1 GM/10 ML UDC PO SCH (21:24)
[2024-12-10] MEDS: SODIUM CHLORIDE FLUSH 0.9% 10 ML SYRINGE IVP SCH (23:54)
[2024-12-11 04:40] LABS: BASOPHILS % (AUTO) 0.2 %; EOSINOPHILS # (AUTO) 0.1 10^3/uL (0.0-0.7); EOSINOPHILS % (AUTO) 0.5 %; HCT - HEMATOCRIT 35.3 % (42.0-52.0); HGB - HEMOGLOBIN 11.8 g/dL (14.0-18.0); LYMPHOCYTES # (AUTO) 2.3 10^3/uL (1.5-3.5); LYMPHOCYTES % (AUTO) 16.8 %; MEAN CORPUSCULAR HEMOGLOBIN 30.7 pg (27.0-31.0); MEAN CORPUSCULAR HGB CONC 33.4 g/dL (32.0-36.0); MEAN CORPUSCULAR VOLUME 91.9 fL (80.0-94.0); MEAN PLATELET VOLUME 8.8 fL (7.4-11.4); MONOCYTES # (AUTO) 0.8 10^3/uL (0.0-1.0); MONOCYTES % (AUTO) 5.6 %; NEUTROPHILS # (AUTO) 10.5 10^3/uL (1.5-6.6); NEUTROPHILS % (AUTO) 76.5 %; PLT - PLATELET COUNT 279 10^3/uL (130-450); RED BLOOD COUNT 3.84 10^6/uL (4.70-6.10); RED CELL DISTRIBUTION WIDTH 13.3 % (12.0-15.0); WHITE BLOOD COUNT 13.8 x10^3/uL (4.8-10.8)
[2024-12-11] MEDS: oxyCODONE 5 MG TABLET PO PRN (04:45)
[2024-12-11 04:53] LABS: CALCIUM 8.7 mg/dL (8.5-10.3); CREATININE 0.6 mg/dL (0.6-1.3); POTASSIUM 3.5 mmol/L (3.5-4.5)
[2024-12-11] MEDS: SODIUM CHLORIDE FLUSH 0.9% 10 ML SYRINGE IVP PRN (06:55)
[2024-12-11] MEDS: amLODIPine 5 MG TABLET PO SCH (08:04)
[2024-12-11 08:26] VITALS: BP 152/95; TEMP 97.9; O2SAT 96
--- NOTE | 2024-12-11 09:42 | Discharge Summary ---
"Discharge Summary Admit Date: 12/10/24 Discharge Date: 12/11/24 Discharging Provider: Dr. Sandi Rudolph Primary Care Provider: Brigitte Hastings Code Status: Attempt Resuscitation Discharge Facility Name: Home DIAGNOSES Admission Diagnoses: Acute on chronic pancreatitis Alcohol use disorder Portal vein thrombosis Gastric varices without bleeding Hypertension Discharge Diagnoses with Status of Each Condition: Acute on chronic pancreatitisresolved. Patient with no more abdominal pain. Received IV fluids, pain control, antiemetics. Tolerating diet well. Advised to advance slowly from full liquids to GI soft at home. Advised to continue to abstain from alcohol use. Alcohol use disorderpatient is been cutting down, has been sober for about 5 days. Advised to continue to maintain sobriety. Portal vein thrombosispatient received Lovenox while here. Transition to Eliquis. Will require loading dose 10 mg twice daily for 6 more days, followed by 5 mg twice daily. Likely will require a 6-month course. Advised to follow- up with primary care provider for reassessment. Gastric varices without bleedingsecondary to chronic alcoholism, continue Protonix and Carafate as per home medications. Advised to hold Eliquis if noted any bleeding, large bruising, dark stools etc. Patient demonstrated understanding. Hypertensioncontinue home medications. HPI History of Present Illness: Per Dr. Tanner: Patient is a 48-year-old man with a long history of chronic recurrent pancreatitis, history of pancreatic stent since removed, alcoholism, esophageal varices, hypertension, chronic pain on opiatesWho presents to the ER with midepigastric and bilateral back pain since yesterday. Patient says it started about midday. Got worse when he had pizza for dinner. He says his last alcoholic drink was 5 days ago. He has been cutting back on alcohol significantly. He denies any fever or chills. He has had dry heaving but no significant vomiting. He denies any hemoptysis or hematemesis. Here in the ED the patient was hypertensive and mildly tachycardic with heart rate of 100. Temperature was normal as well as pulse ox. WBC was 18. Lipase was significantly elevated at 913. CT was remarkable for interval removal of pancreatic duct stent, recurrent acute pancreatitis superimposed on chronic pancreatitis as well as new finding of portal vein thrombosis and likely splenic vein and left main portal vein which were noted to appear chronic according to the radiologist. He is also noted to have extensive gastric varicosities as well as diverticulosis. He was diagnosed with acute pancreatitis and given IV fluids and pain medication and hospital admission was requested. CONSULTS | PROCEDURES Procedures: Abdomen/Pelvis CT HOSPITAL COURSE Hospital Course: Patient is a 48-year-old man with a history of recurrent pancreatitis, chronic alcohol use, esophageal varices, hypertension who presented with abdominal pain. CT abdomen/pelvis showed acute pancreatitis on chronic pancreatitis, as well as thrombosis of portal vein and splenic vein. He was started on IV fluids, bowel rest, antiemetics, pain control. His diet was slowly advanced from clear liquids to full liquids. He tolerated it well. For his thrombosis, initially was started on IV Lovenox, and we have now transitioned him to oral Eliquis. He was advised to follow-up with his primary care provider for continuation, but will likely need a 6-month course. Overall, he is deemed suitable for discharge with close follow-up with his primary care provider. ALLERGIES Allergies Allergy/AdvReac Type Severity Reaction Status Date / Time No Known Drug Allergies Allergy Verified 12/10/24 12:42 MEDICATIONS Ambulatory Orders Medication Instructions Recorded Confirmed propranolol 20 mg tablet 20 mg PO BID Anxiety 2 12/11/24 amlodipine 5 mg tablet 5 mg PO DAILY #30 tabs 02/2612/11/24 pantoprazole 20 mg tablet,delayed 20 mg PO BID Heartbu rn 01/05/24 12/11/24 release (Protonix) sucralfate 1 gram tablet (Carafate) 1 g PO DAILY 01/0412/11/24 [id number] 1 cap PO TID 05/24/24 10,000-32,000-42,000 unit capsule,delayed rel (Zenpep) trazodone 50 mg tablet 50 mg PO QPM PRN insomnia 12/11/24 acetaminophen 325 mg tablet 325 mg PO Q4H PRN pain 02/1512/11/24 naloxone 4 mg/actuation nasal spray 1 spray intranasal Q3M PRN opioid 07/31/24 12/11/24 overdose ondansetron 4 mg disintegrating 4 mg PO Q6H PRN nausea and 08/01/24 12/11/24 tablet vomiting #20 tabs hydrocodone 5 mg-acetaminophen 325 1 tab PO Q4H PRN pa in #14 tabs 09/30/24 12/11/24 mg tablet promethazine 25 mg tablet 25 mg PO QID PRN nausea and 09/30/24 12/11/24 vomiting #14 tabs apixaban 5 mg (74 tabs) tablets in See Rx Instructions PO .COMPLEX 12/11/24 a dose pack (Eliquis DVT-PE Treat #74 ea 30D Start) PHYSICAL EXAM AT DISCHARGE Vital Signs: Vital Signs x48h Temp Pulse Resp BP Pulse Ox 12/11/24 08:25 97.9 F 78 18 152/95 H 96 General Appearance: positive No acute distress and Alert; negative Anxious Eyes Bilateral: positive Normal inspection, PERRL and EOMI ENT: positive ENT inspection nml, Pharynx nml and No signs of dehydration Neck: positive Nml inspection, Thyroid nml and No JVD Respiratory: positive Chest non-tender and No respiratory distress; negative Wheezes, Rales or Rhonchi Cardiovascular: positive Regular rate & rhythm, No murmur and No gallop Peripheral Pulses: positive 2+ Abdomen: positive Non-tender, No organomegaly and No distention; negative Hepatomegaly or Splenomegaly Back: positive Nml inspection; negative CVA tenderness (R) or CVA tenderness (L) Skin: positive Color nml, No rash, Warm and Dry Extremities: positive Non-tender, Full ROM, Nml appearance and No pedal edema Neurologic/Psychiatric: positive Oriented x3, Motor nml, Sensation nml and Mood/affect nml LABS 12/11/24 04:32 12/11/24 04:32 DIAGNOSTIC IMAGING Diagnostic Imaging Results: Final report reviewed FOLLOW UP Follow Up: Follow up with PCP. 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 TIME SPENT Time Spent in Discharge (Minutes): 35 Discharge Plan Discharge Patient Disposition: Home, Self Care Condition: Stable Prescriptions: New Eliquis DVT-PE Treat 30D Start 5 mg (74 tabs) tablets,dose pack See Rx Instructions .ROUTE .COMPLEX Qty: 74 0RF Rx Instructions: orally per package directions - 10mg BID for 6 more days, then 5 mg BID Continued propranolol 20 MG tablet 20 mg PO BID Patient Comments: take 1 tablet by mouth twice a day if needed amlodipine 5 MG tablet 5 mg PO DAILY Qty: 30 0RF sucralfate [Carafate] 1 GM tablet 1 g PO DAILY pantoprazole [Protonix] 20 MG tablet,delayed release (DR/EC) 20 mg PO BID Zenpep 10,000-32,000 -42,000 unit capsule,delayed release(DR/EC) 1 cap PO TID trazodone 50 mg tablet 50 mg PO QPM PRN (Reason: insomnia) acetaminophen 325 mg tablet 325 mg PO Q4H PRN (Reason: pain) naloxone 4 mg/actuation spray,non-aerosol 1 spray INTRANASAL Q3M PRN (Reason: opioid overdose) Patient Comments: CALL 911 ADMINISTER A SINGLE spray INTO ONE NOSTRIL repeat in 3 MINUTES IF NO OR MINIMAL RESPONSE ondansetron 4 mg Tablet,Disintegrating 4 mg PO Q6H PRN (Reason: nausea and vomiting) Qty: 20 0RF hydrocodone-acetaminophen 5-325 mg tablet 1 tab PO Q4H PRN (Reason: pain) Qty: 14 0RF promethazine 25 mg tablet 25 mg PO QID PRN (Reason: nausea and vomiting) Qty: 14 0RF Activity Restrictions: Activity as Tolerated Diet: Soft Health Concerns: You came in because you were having abdominal pain. You were found to have acute pancreatitis once again. While you were here, we started you on IV fluids, and slowly advanced your diet. You are feeling better now. Please continue your Protonix twice a day, as well as your pain medications at home. While you are here, we did do a CT scan of your abdomen, and it shows clots in your portal vein. As such, you need to be on a blood thinner. I have sent Kaylynnorais to your pharmacy. Typically, this is a 6-month course for this type of blood clot. If you notice any dark stools, or if you start throwing up blood, or notice any large bruising, please return to the emergency room. Please follow-up very closely with your primary care provider on the course of this medication. I would like you to follow up with them in the next 1-2 weeks. Please continue to eat a soft diet or a liquid diet on discharge until your pain is completely resolved. Please continue to abstain from alcohol use. We are glad you are feeling better, thanks for letting us take care of you. Print Language: Armenian Patient Instructions: Apixaban oral tablets, Pancreatitis Acute Dc Stand Alone Forms: PCP List Follow-up Care: HUDSON OLMEDO MD [Primary Care Provider] -"
--- NOTE | 2024-12-11 11:26 | PHARMACY PROGRESS NOTE ---
Best Possible Medication History Admit Date and Time: 12/10/24 1703 Home Medications Medication Instructions Recorded Confirmed Type propranolol 20 mg tablet 20 mg PO BID Anxiety 2 12/11/24 History amlodipine 5 mg tablet 5 mg PO DAILY #30 tabs 02/2612/11/24 Rx pantoprazole 20 mg tablet,delayed 20 mg PO BID Heartbu rn 01/05/24 12/11/24 History release (Protonix) sucralfate 1 gram tablet (Carafate) 1 g PO DAILY 01/0412/11/24 History ppmtkc-hjtlmxty-jjahjjo 1 cap PO TID 05/24/24 History 10,000-32,000-42,000 unit capsule,delayed rel (Zenpep) trazodone 50 mg tablet 50 mg PO QPM PRN insomnia 12/11/24 History acetaminophen 325 mg tablet 325 mg PO Q4H PRN pain 02/1512/11/24 History naloxone 4 mg/actuation nasal spray 1 spray intranasal Q3M PRN opioid 07/31/24 12/11/24 History overdose ondansetron 4 mg disintegrating 4 mg PO Q6H PRN nausea and 08/01/24 12/11/24 Rx tablet vomiting #20 tabs hydrocodone 5 mg-acetaminophen 325 1 tab PO Q4H PRN pa in #14 tabs 09/30/24 12/11/24 Rx mg tablet promethazine 25 mg tablet 25 mg PO QID PRN nausea and 09/30/24 12/11/24 Rx vomiting #14 tabs apixaban 5 mg (74 tabs) tablets in See Rx Instructions PO .COMPLEX 12/11/24 Rx a dose pack (Eliquis DVT-PE Treat #74 ea 30D Start) Processed by: Pharmacy Medications reviewed in ED?: No Medication History completed: Yes Patient Interview: Completed Secondary Source(s): Insurance records [facility] Statement: Per [facility] interview with patient and review of [employer] insurance records. As the person ultimately responsible for medication therapy, providers are able to order a medication from an existing home medication list in [facility] via the "Reconcile Routine" prior to Confirmation of that medication by network support technician. Such practice is discouraged except when the physician, in their clinical judgment, deems that a medical need exists for a medication without regard to previous use.
== END 2024-12-11 11:45 | disposition home or self-care (01) | DRG 438 ==
LOC: ED 12:39 → MS2 17:03
PROVIDERS: ADMIT Family Medicine Sports Medicine; ATTEND Family Medicine Sports Medicine
DX: G89.29 Other chronic pain; Z79.891 Long term (current) use of opiate analgesic; I10 Essential (primary) hypertension; K85.90 Acute pancreatitis without necrosis or infection, unspecified; I81 Portal vein thrombosis; F17.210 Nicotine dependence, cigarettes, uncomplicated; F10.20 Alcohol dependence, uncomplicated; R00.0 Tachycardia, unspecified; D73.5 Infarction of spleen; K86.1 Other chronic pancreatitis; I86.4 Gastric varices; K57.30 Diverticulosis of large intestine without perforation or abscess without bleeding

== ENCOUNTER 2025-07-08 21:17 | Inpatient (IN) ==
--- OUTSIDE RECORDS SUMMARY | 2025-07-08 21:29 | EXTERNAL MEDICAL SUMMARY RPT | Continuity of Care Document ---
Author Organization [facility] Address [address] [place] [id number] Phone Allergies and Intolerances date description facility reaction severity 2025-01-18 10:00 [id number]^No Known Drug Allergies^^No Known Drug Allergies^^allergy.id [facility] (no reaction) (no severity) 2025-04-15 10:00 [id number]^No Known Drug Allergies^^No Known Drug Allergies^^allergy.id [facility] (no reaction) (no severity) Problems date description facility 2025-04-15 11:20 Acute pancreatitis w ithout necrosis or infection, unspecified [facility] 2025-04-17 09:22 Acute pancreatitis w ithout necrosis or infection, unspecified [facility] 2025-04-17 09:22 Right upper quadrant pain [facility] 2025-04-17 09:22 Epigastric pain [facility] 2025-04-17 09:22 Unspecified abdominal pain [facility] 2025-04-23 14:11 Unspecified abdominal pain [facility] Results/Labs test date facility value unit notes Result panel 1 NUCLEATED RED BLOOD CELLS AUTO 2025-04-15 08:22 [facility] 0.0 /100wbc (missing) NRBC ABSOLUTE COUNT (AUTO) 2025-04-15 08:22 [facility] 0.00 x10 3/ul (missing) BASOPHILS # (AUTO) 2025-04-15 08:22 [facility] 0.1 10 3/ul (missing) EOSINOPHILS # (AUTO) 2025-04-15 08:22 [facility] 0.1 10 3/ul (missing) BILIRUBIN,TOTAL 2025-04-15 08:22 [facility] 0.4 mg/dl As of January 2023 testing method has changed, this may include reference ranges. CREATININE 2025-04-15 08:22 [facility] 0.9 mg/dl As of January 2023 testing method has changed, this may include reference ranges. MONOCYTES # (AUTO) 2025-04-15 08:22 [facility] 1.1 10 3/ul (missing) MAGNESIUM 2025-04-15 08:22 [facility] 1.3 mg/dl As of January 2023 testing method has changed, this may include reference ranges. ALBUMIN/GLOBULIN RATIO 2025-04-15 08:22 [facility] 1.7 (missing) (missing) CHLORIDE 2025-04-15 08:22 [facility] 100 mmol/l As of January 2023 testing method has changed, this may include reference ranges. LIPASE 2025-04-15 08: [facility] 1090 u/l As of January 2023 testing method has changed, this may include reference ranges. ANION GAP [facility]25-04-15 [facility] 13.0 (missing) (missing) RED CELL DISTRIBUTION WIDTH 2025-04-15 08:22 [facility] 13.8 % (missing) NEUTROPHILS # (AUTO) 2025-04-15 08:22 [facility] 13.9 10 3/ul (missing) SODIUM 2025-04-15 08:22 [facility] 138 mmol/l (missing) HGB - HEMOGLOBIN 2025-04-15 08:22 [facility] 15.2 g/dl (missing) ETOH - ETHANOL 2025-04-15 08:22 [facility] 160.2 mg/dl Blood Alcohol Levels Level Sporadic Drinkers Chronic drinkers == 100 mg/dL Legally intoxicated* Minimal signs 200-250 mg/dL Alertness lost, Effort needed to becoming lethargic maintain emotional and motor control 300-350 mg/dL Stupor to coma Drowsy and slow >500 mg/dL Possible Coma *The legal definition of intoxication varies. This assy is for medical decision making only. As of January 2023 testing method has changed, this may include reference ranges. ALT ALANINE AMINOTRANSFERASE 2025-04-15 08:22 [facility] 17 iu/l As of January 2023 testing method has changed, this may include reference ranges. WHITE BLOOD COUNT 2025-04-15 08: [facility] 18.5 x10 3/ul (missing) LDH - LACTATE DEHYDROGENASE 2025-04-15 08:22 [facility] 181 iu/l As of January 2023 testing method has changed, this may include reference ranges. GLUCOSE 2025-04-15 08:22 [facility] 187 mg/dl As of January 2023 testing method has changed, this may include reference ranges. GLOBULIN 2025-04-15 08:22 [facility] 2.7 g/dl (missing) AST ASPARTATE AMINOTRANSFERASE 2025-04-15 08: [facility] 25 iu/l As of January 2023 testing method has changed, this may include reference ranges. CARBON DIOXIDE - CO2 2025-04-15 08: [facility] 25 mmol/l As of January 2023 testing method has changed, this may include reference ranges. LYMPHOCYTES # (AUTO) 2025-04-15: [facility] 3.3 10 3/ul (missing) POTASSIUM 2025-04-15 08: [facility] 3.8 mmol/l As of January 2023 testing method has changed, this may include reference ranges. MEAN CORPUSCULAR HEMOGLOBIN 2025-04-15: [facility] 31.1 pg (missing) PLT - PLATELET COUNT 2025-04-15 08:22 [facility] 331 10 3/ul (missing) TRIGLYCERIDES 2025-04-15 08:22 [facility] 332 mg/dl Triglyceride Risk Classification <150 mg/dL Normal 150-199 mg/dL Borderline High 200-499 mg/dL High >500 mg/dL Very High MEAN CORPUSCULAR HGB CONC 2025-04-15 08:22 [facility] 34.2 g/dl (missing) ALBUMIN 2025-04-15 08: [facility] 4.5 g/dl As of January 2023 testing method has changed, this may include reference ranges. RED BLOOD COUNT 2025-04-15 08: [facility] 4.88 10 6/ul (missing) HCT - HEMATOCRIT 2025-04-15 08:22 [facility] 44.5 % (missing) TOTAL PROTEIN 2025-04-15 08:22 [facility] 7.2 g/dl As of January 2023 testing method has changed, this may include reference ranges. ALKALINE PHOSPHATASE 2025-04-15 08:22 [facility] 89 iu/l As of January 2023 testing method has changed, this may include reference ranges. BUN - BLOOD UREA NITROGEN 2025-04-15 08:22 [facility] 9 mg/dl As of January 2023 testing method has changed, this may include reference ranges. MEAN PLATELET VOLUME 2025-04-15 08:22 [facility] 9.0 fl (missing) CALCIUM 2025-04-15 08: [facility] 9.1 mg/dl As of January 2023 testing method has changed, this may include reference ranges. GFR - MDRD 2025-04-15 08:22 [facility] 90 (missing) The IDMS-traceable MDRD Study Equation has been validated extensively in and populations between the ages of 18 and 70 with impaired kidney function (eGFR < 60 mL/min/1.73m2) and has shown good performance for patients with all common causes of kidney disease. Although this equation has not been validated for patients older than 70, an MDRD-derived eGFR may still be a useful tool for providers caring for patients older than 70. References: http://www.nkdep.ni h.gov/lab-evaluatio n/gfr/creatinine-st and ardization, last updated September 2011. MEAN CORPUSCULAR VOLUME 2025-04-15 08:22 [facility] 91.2 fl (missing) Social History date description facility
[2025-07-08 21:38] LABS: HCT - HEMATOCRIT 42.8 % (42.0-52.0); HGB - HEMOGLOBIN 14.5 g/dL (14.0-18.0); MEAN PLATELET VOLUME 8.4 fL (7.4-11.4); NRBC ABSOLUTE COUNT (AUTO) 0.00 x10^3/uL; NUCLEATED RED BLOOD CELLS AUTO 0.0 /100WBC; PLT - PLATELET COUNT 337 10^3/uL (130-450); RED CELL DISTRIBUTION WIDTH 14.3 % (12.0-15.0)
--- NOTE | 2025-07-08 21:45 | ED Physician Documentation ---
History of Present Illness Stated complaint Stated Complaint: ABD PX Chief complaint Chief Complaint: Abd Pain History obtained from History obtained from: Patient Additonal information Additional information: Patient comes to the emergency department chief complaint of abdominal pain he states it feels somewhat similar to his pancreatitis but is more in the left lower quadrant as well as the epigastrium this time which is a little bit different than usual. He denies any fevers or chills. He states he has been nauseated on and off. No diarrhea or bowel movement changes. He denies any other complaints at this time. He has a longstanding history of recurrent abdominal pain and his had pancreatitis previously, though this is not always the cause of his abdominal pain. Meds/Allgy Home Medications Ambulatory Orders Medication Instructions Recorded Confirmed propranolol 20 mg tablet 20 mg PO BID Anxiety 2 01/18/25 amlodipine 5 mg tablet 5 mg PO DAILY #30 tabs 02/2601/18/25 pantoprazole 20 mg tablet,delayed 20 mg PO BID [facility] r[facility] 01/05/24 01/18/25 release (Protonix) dppjlj-hrrtjele-kzaykdz(pork)10,000-32,000-42,000 1 ca p PO TID 05/24/24 01/18/25 unit capsule,del rel (Zenpep) trazodone 50 mg tablet 50 mg PO QPM PRN insomnia 01/18/25 acetaminophen 325 mg tablet 325 mg PO Q4H PRN pain 02/1501/18/25 naloxone 4 mg/actuation nasal spray 1 spray intranasal Q3M PRN opioid 07/31/24 01/18/25 overdose ondansetron 4 mg disintegrating 4 mg PO Q6H PRN nausea and 08/01/24 01/18/25 tablet vomiting #20 tabs apixaban 5 mg tablet 5 mg PO BID 01/18/25 5 oxycodone 5 mg tablet 5 mg PO Q4HR PRN Pain 5 to 7 #20 01/20/25 tabs ondansetron 4 mg disintegrating 4 mg PO QID PRN nausea and 04/15/25 tablet vomiting #10 tabs oxycodone 5 mg tablet 5 mg PO QID PRN pain #20 tab s 04/15/25 promethazine 25 mg tablet 25 mg PO QID PRN nausea and 04/15/25 vomiting #20 tabs Allergies Allergies Allergy/AdvReac Type Severity Reaction Status Date / Time No Known Drug Allergies Allergy Verified 07/08/25 21:22 PFSH Active Problems All Active Problems (Updated 07/09/25 @ 01:20 by Selene Bob MD) Pancreatic pseudocyst (Acute) Hypertension (Acute) Current use of [employer] [facility] anticoagulation (Acute) Pancreatitis (Acute) Abdominal pain (Acute) Medical History Medical History (Updated 07/09/25 @ 01:20 by Selene Bob MD) 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 (Date/Year): n/a Number of Years Smoked: 20 How many cigarettes a day do you smoke? (20 cigarettes=1 Pk): 10 Second hand tobacco smoke exposure: Yes Do you dip or chew tobacco?: No Do you vape?: No Patient requests smoking cessation consult: No Initiate information on smoking cessation: No Living arrangement: At home Living Condition: With family Level: Independent Do you feel safe in your home environment?: Yes History of physical, verbal, emotional, or financial abuse?: No Frequency: Occasional Substance Use: denies use Are you sexually active?: Yes POLST Patient has POLST: No Exam Exam Vital Signs: Vital Signs x48h Pulse Resp BP Pulse Ox 07/09/25 01:00 117 H 23 124/67 93 07/08/25 23:24 108 H 23 110/89 98 Constitutional No distress but patient does appear uncomfortable. HENMT normocephalic, head/scalp atraumatic, external nose normal and oral mucous membranes normal Eyes EOMs intact bilaterally Neck/C-Spine visual inspection normal and supple Respiratory breath sounds equal bilaterally, normal respiratory effort and clear to auscultation bilaterally Cardiovascular normal heart rate noted, regular rhythm noted and no edema Gastrointestinal abdomen soft to palpation and nondistended Moderate tenderness palpation epigastrium and mild tenderness in the left lower quadrant. No rebound or guarding. Genitourinary no CVA tenderness Extremities normal to inspection Neurology Alert, grossly intact Psychiatry mental status grossly normal Skin skin color normal Results Vitals Vitals: Vital Signs - 24 hr 07/08/25 21:22 07/08/25 21:54 07/08/25 22:19 Temperature 36.8 C Temperature Source Temporal Artery Scan Pulse Rate 124 H Respiratory Rate 26 H Blood Pressure 181/129 H O2 Saturation 98 O2 Source Room air Pain Intensity 10 9 10 07/08/25 22:25 07/08/25 22:50 07/08/25 22:51 Temperature Temperature Source Pulse Rate Respiratory Rate Blood Pressure O2 Saturation O2 Source Pain Intensity 9 7 7 07/08/25 23:00 07/08/25 23:24 07/08/25 23:55 Temperature Temperature Source Pulse Rate 108 H Respiratory Rate 23 Blood Pressure 110/89 O2 Saturation 98 O2 Source Room air Pain Intensity 7 7 07/09/25 00:38 07/09/25 00:40 07/09/25 01:00 Temperature Temperature Source Pulse Rate 117 H Respiratory Rate 23 Blood Pressure 124/67 O2 Saturation 93 O2 Source Room air Pain Intensity 10 10 4 Oxygen O2 Source Room air Labs Labs: Laboratory Tests 07/08/25 21:29 WBC 14.1 H RBC 4.55 L Hgb 14.5 Hct 42.8 MCV 94.1 H MCH 31.9 H MCHC 33.9 RDW 14.3 Plt Count 337 MPV 8.4 Neut # (Auto) 12.3 H Lymph # (Auto) 1.0 L Mcculloch # (Auto) 0.7 Eos # (Auto) 0.0 Baso # (Auto) 0.0 Absolute Nucleated RBC 0.00 Nucleated RBC % 0.0 Sodium 135 Potassium 4.0 Chloride 96 L Carbon Dioxide 25 Anion Gap 14.0 H BUN 14 Creatinine 0.8 Estimated GFR (MDRD) 103 Glucose 200 H Calcium 9.3 Total Bilirubin 0.9 AST 23 ALT 13 Alkaline Phosphatase 94 Total Protein 7.5 Albumin 4.7 Globulin 2.8 Albumin/Globulin Ratio 1.7 Lipase 337 H PD Medical Decision Making ED course Complexity details: reviewed old records, reviewed results, re-evaluated patient, considered differential and d/w patient ED course: The patient was worked up with labs including CBC and ER abdominal panel. He was given IV fluids and a small dose of Dilaudid and droperidol. CBC showed a white blood cell count of 14 and lipase of 337 with otherwise unremarkable findings. The patient stated he did not have any relief from his initial dose of Dilaudid so was given 1 mg of Dilaudid which did help a little more. However, the patient within an hour began to moan and cry out again stating the pain was worse than it had been. He was given 2 mg and I ordered a CT scan of the abdomen and pelvis, given the patient's pain seem to be escalating and he felt the pain was a bit different location wilhelm than his normal pancreatitis. CT scan showed a finding change since his last CT of inflammation tracking along the body of the stomach with a fluid collection but no free air. The possibility was raised by radiologist of a contained perforation of the gastric ulcer. Pancreas was noted To continue to demonstrate it is chronic and usual contours and findings. I discussed the case with Dr. Villa, who is on-call for surgery and she stated that she felt it was likely that the fluid collection was a pseudocyst, not a perforated gastric ulcer. We discussed whether there was likelihood of the pt needing a scope or surgery or not, and whether the pt could stay here. For now, Dr. Villa stated that if the patient was admitted to medicine, surgery could consult in the morning to determine whether further management was needed from a surgical perspective. As such, I spoke with Dr. Cates, who is on-call for the hospitalist service and she did agree to admit the patient to her service. Pt did require another dose of Dilaudid. He remained mildly tachycardic, but with stable, normal blood pressure. Discharge Plan Discharge Patient Disposition: [facility] DC/Xfer Condition: Serious Clinical Impression: Pancreatitis, Pancreatic pseudocyst Interventions: ED Admission Assessment Last Done: 07/09/25 01:54 Vitals documented within 30 minutes of discharge?: Yes
[2025-07-08 21:50] LABS: ALT ALANINE AMINOTRANSFERASE 13.0 IU/L (10-60); AST ASPARTATE AMINOTRANSFERASE 23.0 IU/L (10-42); BUN - BLOOD UREA NITROGEN 14.0 mg/dL (6-20); CARBON DIOXIDE - CO2 25.0 mmol/L (21-32); CREATININE 0.8 mg/dL (0.6-1.3); GFR - MDRD 103.0 (>89)
[2025-07-08] MEDS: HYDROmorphone 0.5 MG/0.5 ML SYRINGE IVP STA ×2 (21:54→22:50)
[2025-07-08] MEDS: DROPERIDOL 5 MG/2 ML VIAL IVP STA (21:55)
[2025-07-08] MEDS: SODIUM CHLORIDE 0.9% 1,000 ML IV STA (21:58)
[2025-07-08] MEDS: HYDROmorphone 1 MG/ML CARPUJECT IVP STA (22:19)
[2025-07-08] MEDS ORDERED: HYDROmorphone 0.5 MG/0.5 ML SYRINGE ONE (22:47)
[2025-07-08] MEDS: HYDROcod/ACETAM 5/325 MG TABLET PO STA (22:51)
--- NOTE | 2025-07-09 00:16 | CT Report ---
PROCEDURE: CT Abdomen/Pelvis W INDICATIONS: LLQ abd pain CONTRAST: [id number] 100ML TECHNIQUE: After the administration of intravenous contrast, a CT scan of the abdomen and pelvis was performed. Images were recorded and evaluated at appropriate window settings. Reformats: coronal and sagittal. For radiation dose reduction, the following was used: automated exposure control, adjustment of mA and/or kV according to patient size. COMPARISON: None. FINDINGS: Image quality: Diagnostic. Lower chest: Bibasilar atelectasis. Liver: Cysts and additional subcentimeter hypoattenuating liver lesions, too small to characterize by CT. Gallbladder: No radiopaque stones or wall thickening. Biliary tree: No intrahepatic or extrahepatic dilation, accounting for age. Spleen: No splenomegaly. Pancreas: Unchanged irregular dilatation of the pancreatic duct, possibly sequela of chronic pancreatitis. Adrenals: No adrenal nodule. Kidneys and ureters: No hydronephrosis. No renal cystic lesion which requires follow up. No solid mass. Stomach, bowel and peritoneum: Prominent wall thickening and perigastric fluid along the gastric body (4/33), with possible ulceration (2/50). Prominent adjacent inflammatory fat stranding is present. There is mild wall thickening of the transverse and descending colon with associated inflammatory change. Scattered colonic diverticula without evidence of acute diverticulitis. Normal appendix. Small volume pelvic free fluid is present. No free air. Lymph nodes: No central or retroperitoneal adenopathy. Vessels: No infrarenal aortic aneurysm. Patent portal vein. Similar gastric and upper abdominal varicosities related to chronic splenic vein thrombosis. PELVIS Reproductive organs: Unremarkable. Bladder: No abnormal wall thickening. Pelvic lymph nodes: No pelvic adenopathy by size criteria. Bones: No aggressive osseous abnormality. Other: No significant ventral or inguinal hernia. IMPRESSION: Prominent gastric wall thickening, perigastric fluid and inflammatory change centered at the gastric body, concerning for ulcer with contained perforation versus prominent gastritis. No free air or organized fluid collection. Colonic wall thickening and inflammatory change is also present, suggestive of infectious/inflammatory colitis. Chronic irregular dilatation of the pancreatic duct, similar to priors, likely sequela of chronic pancreatitis. Reviewed by: Yayo Doyle MD on 07/09/2025 12:13 AM [facility] Approved by: Yayo Doyle MD on 07/09/2025 12:13 AM PST Station ID: [id number]
[2025-07-09] MEDS: HYDROmorphone 2 MG/ML VIAL IVP STA (00:38)
[2025-07-09] MEDS ORDERED: PROCHLORPERAZINE 10 MG/2 ML VIAL IVP PRN (01:48)
[2025-07-09] MEDS ORDERED: ONDANSETRON 4 MG/2 ML VIAL IVP PRN (01:48)
--- NOTE | 2025-07-09 01:55 | HISTORY & PHYSICAL EXAMINATION ---
Chief Complaint Chief Complaint Chief Complaint: abdominal pain History of Present Illness History Obtained From Exam Limitations: telemedicine History of Present Illness HPI Comment/Other: Mr. Chou is a 49yo M with a h/o chronic pancreatitis, ETOH abuse, portal vein thrombosis, esophageal varices, opiod dependence. He presented to the ED with severe epigastric pain, more left than right. pain persistent but intermittently worse. cramping and stabbing pain that radiates to his back. pain is associated with nausea. He is unable to eat. workup demonstrated a lipase level in bruce 300s, lower than previous levels. CT abdomen demonstrated pancreatic inflammation and fluid collection. this was discussed with the surgeon oncall, who believes collection to be a pseudocyst. It was advised that patient be admitted for further management wiht surgery consultation. patient endorses continued ETOH use, last drink was 2 days ago at the start of the his abdominal pain. He consumed 3-4 vodka based cocktails. he no longer takes pancreatic enzymes for his chronic pancreatitis due to cost. He is not on anticoagulation at this time. This visit was performed using telehealth tools, including phone and live-video. patient provided verbal consent to complete this telemedicine encounter. During the time my interview and evaluation, the patient was located at [facility] in the [facility], I was located in [place]. Review of Systems Status of ROS: 10 or more systems reviewed and unremarkable except as noted in history and below PFSH Active Problems All Active Problems (Updated 07/09/25 @ 01:20 by Selene Bob MD) Pancreatic pseudocyst (Acute) Hypertension (Acute) Current use of [facility] anticoagulation (Acute) Pancreatitis (Acute) Abdominal pain (Acute) Medical History Medical History (Updated 07/09/25 @ 01:20 by Selene Bob MD) Gastric varices without bleeding Portal vein thrombosis Gallstone Surgical History Surgical History History of ERCP Social History Social History Smoking Status: Current every day smoker If you are a former smoker, when did you quit? (Date/Year): n/a Number of Years Smoked: 20 How many cigarettes a day do you smoke? (20 cigarettes=1 Pk): 15 Second hand tobacco smoke exposure: Yes Do you dip or chew tobacco?: Yes Do you vape?: No Patient requests smoking cessation consult: No Initiate information on smoking cessation: No Living arrangement: At home Living Condition: With family Level: Independent Do you feel safe in your home environment?: Yes History of physical, verbal, emotional, or financial abuse?: No Frequency: Occasional Substance Use: denies use Are you sexually active?: Yes POLST Patient has POLST: No Meds/Allgy Home Medications Ambulatory Orders Medication Instructions Recorded Confirmed propranolol 20 mg tablet 20 mg PO BID Anxiety 2 01/18/25 amlodipine 5 mg tablet 5 mg PO DAILY #30 tabs 02/2601/18/25 pantoprazole 20 mg tablet,delayed 20 mg PO BID Heartbu rn 01/05/24 01/18/25 release (Protonix) zquvon-lkbqxmaj-jsyilgl(pork)10,000-32,000-42,000 1 ca p PO TID 05/24/24 01/18/25 unit capsule,del rel (Zenpep) trazodone 50 mg tablet 50 mg PO QPM PRN insomnia 01/18/25 acetaminophen 325 mg tablet 325 mg PO Q4H PRN pain 02/1501/18/25 naloxone 4 mg/actuation nasal spray 1 spray intranasal Q3M PRN opioid 07/31/24 01/18/25 overdose ondansetron 4 mg disintegrating 4 mg PO Q6H PRN nausea and 08/01/24 01/18/25 tablet vomiting #20 tabs apixaban 5 mg tablet 5 mg PO BID 01/18/25 5 oxycodone 5 mg tablet 5 mg PO Q4HR PRN Pain 5 to 7 #20 01/20/25 tabs ondansetron 4 mg disintegrating 4 mg PO QID PRN nausea and 04/15/25 tablet vomiting #10 tabs oxycodone 5 mg tablet 5 mg PO QID PRN pain #20 tab s 04/15/25 promethazine 25 mg tablet 25 mg PO QID PRN nausea and 04/15/25 vomiting #20 tabs Allergies Allergies Allergy/AdvReac Type Severity Reaction Status Date / Time No Known Drug Allergies Allergy Verified 07/08/25 21:22 Exam Exam Vital Signs: Vital Signs x48h Temp Pulse Resp BP Pulse Ox 07/08/25 23:24 108 H 23 110/89 98 07/08/25 21:22 36.8 C 124 H 26 H 181/129 H 98 Examination as recorded is based on patient and staff reported information as well as peripheral observation Constitutional normal general appearance and distress noted Respiratory breath sounds equal bilaterally Cardiovascular heart rate abnormal (tachycardic) and regular rhythm noted Gastrointestinal abdomen normal to inspection, tender to palpation and nondistended Psychiatry oriented x3 Skin skin color normal Conclusion/Plan Problem List (1) Pancreatitis: Plan: CT abdomen and pelvis reviewed: consistent with acute on chronic pancreatitis adn possible pseudocyst -maintain npo for bowel rest -continue IV fluid NS 150cc/hr -pain managment: dilaudid 1mg q3h, toradol prn q6h, monitor for clinical response and adverse effects -antiemetic for nausea and vomitting -protonix 40mg bid (2) Pancreatic pseudocyst: Plan: -as seen on CT abdomen -continue with conservative management, no antibiotics at this time -surgery consulted to assist with managment (3) Alcohol abuse: Plan: drinks heavily on his off days (every other week) -monitor for withdrawal symptoms -thiamine and folate, banana bag replacement -electrolyte replacement Plan Patient will be admitted to the hospitalist service under outpatient-observation status. less than 2 midnights expected for management. Lab Results Lab results reviewed: Yes 07/08/25 21:29 07/08/25 21:29 Core Measures Anticipated LOS I expect patient to be DC'd or transferred within 96 hours.: Yes DVT/VTE - Prophylaxis VTE/DVT Device ordered at admit?: Yes
[2025-07-09] MEDS ORDERED: MULTIVITAMIN 10 ML, THIAMINE INJ 100 MG, FOLIC ACID INJ 1 MG in SODIUM CHLORIDE 0.9% 1,... IV SCH (02:00)
[2025-07-09] MEDS: HYDROmorphone 0.5 MG/0.5 ML SYRINGE IVP PRN (02:03)
[2025-07-09] MEDS: SODIUM CHLORIDE 0.9% 1,000 ML IV SCH (02:05)
[2025-07-09] MEDS: SODIUM CHLORIDE FLUSH 0.9% 10 ML SYRINGE IVP PRN (04:36)
[2025-07-09] MEDS: KETOROLAC 15 MG/ML VIAL IVP PRN (04:36)
[2025-07-09] MEDS ORDERED: MAGNESIUM SULFATE 1 GM/2 ML VIAL IVP STA (06:07)
[2025-07-09] MEDS: MAGNESIUM SULFATE 1 GM in SODIUM CHLORIDE 0.9% 50 ML IV ONE (07:46)
[2025-07-09] MEDS: PANTOPRAZOLE 40 MG VIAL IVP SCH (08:05)
[2025-07-09] MEDS: HEPARIN 5,000 UNIT/ML VIAL SUBQ SCH (08:05)
[2025-07-09] MEDS: SODIUM CHLORIDE FLUSH 0.9% 10 ML SYRINGE IVP SCH (08:05)
[2025-07-09] MEDS ORDERED: MULTIVITAMIN 10 ML, THIAMINE INJ 100 MG, FOLIC ACID INJ 1 MG in SODIUM CHLORIDE 0.9% 1,... IV ONE (09:00)
[2025-07-09] MEDS ORDERED: PANTOPRAZOLE 40 MG in SODIUM CHLORIDE 0.9% 100ML 100 ML IV SCH (09:00)
[2025-07-09 10:54] LABS: ESTIMATED AVERAGE GLUCOSE 134 mg/dL (70-100); HEMOGLOBIN A1c% 6.3 % (4.27-6.07)
--- NOTE | 2025-07-09 11:01 | CONSULTATION NOTE ---
Referring Provider Name of Referring Provider:: Marie Cates Consult Date: 07/09/25 Chief Complaint Chief Complaint Chief Complaint: Abdominal pain History of Present Illness Admitted From Admitted From:: Home History Obtained From Records Reviewed: Yes History obtained from: Patient and chart Exam Limitations: None History of Present Illness HPI Comment/Other: I am evaluating the patient today at the request of Dr. Marie Cates as I took over as a surgeon on-call this morning at [address] Mely Villa. The patient presented to the emergency department last evening with unremitting abdominal pain. He is evaluated in room 2201 at [facility] MedSurg unit. He is a very pleasant 49-year-old male who has had multiple admissions for active and chronic pancreatitis related to alcohol abuse. The records that are available on [facility] record this going back to at least 2019 and when I discussed with the patient it goes back even further. The pain that admitted him to the hospital is more left-sided than right and has progressively gotten worse. It is described as a sharp stabbing and cramping pain that radiates through to his back and is associated with nausea but there is been no vomiting. Vodka is his drink of choice. He has stopped taking his pancreatic enzymes due to cost. Importantly, he has been diagnosed with portal vein thrombosis, esophageal varices, gastric varices, splenic vein thrombosis, and opioid dependence. I personally reviewed the CT scan that was done yesterday evening showing "unchanged irregular dilation of the pancreatic duct possibly the sequela of chronic pancreatitis." Additionally, "prominent wall thickening and perigastric fluid along the gastric body with possible ulceration and prominent adjacent inflammatory fat stranding." There is also mild wall thickening of the transverse and descending colon with associated inflammatory change also seen. Also importantly the portal vein was noted to be open but the splenic vein was still thrombosed. Gastric and esophageal varices were also still seen. PFSH Active Problems All Active Problems (Updated 07/09/25 @ 01:20 by Selene Bob MD) Pancreatic pseudocyst (Acute) Hypertension (Acute) Current use of watermelon inspector anticoagulation (Acute) Pancreatitis (Acute) Abdominal pain (Acute) Medical History Medical History (Updated 07/09/25 @ 01:20 by Selene Bob MD) 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 (Date/Year): n/a Number of Years Smoked: 20 How many cigarettes a day do you smoke? (20 cigarettes=1 Pk): 10 Second hand tobacco smoke exposure: Yes Do you dip or chew tobacco?: No Do you vape?: No Patient requests smoking cessation consult: No Initiate information on smoking cessation: No Living arrangement: At home Living Condition: With family Level: Independent Do you feel safe in your home environment?: Yes History of physical, verbal, emotional, or financial abuse?: No Frequency: Occasional Substance Use: denies use Are you sexually active?: Yes POLST Patient has POLST: No Meds/Allgy Home Medications Ambulatory Orders Medication Instructions Recorded Confirmed propranolol 20 mg tablet 20 mg PO BID Anxiety 2 01/18/25 amlodipine 5 mg tablet 5 mg PO DAILY #30 tabs 02/2601/18/25 pantoprazole 20 mg tablet,delayed 20 mg PO BID Heartbu rn 01/05/24 01/18/25 release (Protonix) kskope-ofciuozm-qcaxkqy(pork)10,000-32,000-42,000 1 ca p PO TID 05/24/24 01/18/25 unit capsule,del rel (Zenpep) trazodone 50 mg tablet 50 mg PO QPM PRN insomnia 01/18/25 acetaminophen 325 mg tablet 325 mg PO Q4H PRN pain 02/1501/18/25 naloxone 4 mg/actuation nasal spray 1 spray intranasal Q3M PRN opioid 07/31/24 01/18/25 overdose ondansetron 4 mg disintegrating 4 mg PO Q6H PRN nausea and 08/01/24 01/18/25 tablet vomiting #20 tabs apixaban 5 mg tablet 5 mg PO BID 01/18/25 5 oxycodone 5 mg tablet 5 mg PO Q4HR PRN Pain 5 to 7 #20 01/20/25 tabs ondansetron 4 mg disintegrating 4 mg PO QID PRN nausea and 04/15/25 tablet vomiting #10 tabs oxycodone 5 mg tablet 5 mg PO QID PRN pain #20 tab s 04/15/25 promethazine 25 mg tablet 25 mg PO QID PRN nausea and 04/15/25 vomiting #20 tabs hydrocodone 5 mg-acetaminophen 325 tab 07/09/25 mg tablet sucralfate 1 gram tablet 07/09/25 Allergies Allergies Allergy/AdvReac Type Severity Reaction Status Date / Time No Known Drug Allergies Allergy Verified 07/08/25 21:22 Results Lab Results Lab results reviewed: Yes 07/08/25 21:29 07/08/25 21:29 Other Lab Results: Lab Results x24hrs 07/09/25 07/08/25 Range/Units 04:54 21:29 WBC 14.1 H (4.8-10.8) x10^3/uL RBC 4.55 L (4.70-6.10) 10^6/uL Hgb 14.5 (14.0-18.0) g/dL Hct 42.8 (42.0-52.0) % MCV 94.1 H (80.0-94.0) fL MCH 31.9 H (27.0-31.0) pg MCHC 33.9 (32.0-36.0) g/dL RDW 14.3 (12.0-15.0) % Plt Count 337 (130-450) 10^3/uL MPV 8.4 (7.4-11.4) fL Neut # (Auto) 12.3 H (1.5-6.6) 10^3/uL Lymph # (Auto) 1.0 L (1.5-3.5) 10^3/uL [place] # (Auto) 0.7 (0.0-1.0) 10^3/uL Eos # (Auto) 0.0 (0.0-0.7) 10^3/uL Baso # (Auto) 0.0 (0.0-0.1) 10^3/uL Absolute Nucleated RBC 0.00 x10^3/uL Nucleated RBC % 0.0 /100WBC Sodium 135 (135-145) mmol/L Potassium 4.0 (3.5-4.5) mmol/L Chloride 96 L (101-111) mmol/L Carbon Dioxide 25 (21-32) mmol/L Anion Gap 14.0 H (6-13) BUN 14 (6-20) mg/dL Creatinine 0.8 (0.6-1.3) mg/dL Estimated GFR (MDRD) 103 (>89) Glucose 200 H (74-104) mg/dL Calcium 9.3 (8.5-10.3) mg/dL Magnesium 1.3 L (1.7-2.3) mg/dL Total Bilirubin 0.9 (0.2-1.0) mg/dL AST 23 (10-42) IU/L ALT 13 (10-60) IU/L Alkaline Phosphatase 94 (42-121) IU/L Total Protein 7.5 (6.4-8.9) g/dL Albumin 4.7 (3.2-5.5) g/dL Globulin 2.8 (2.1-4.2) g/dL Albumin/Globulin Ratio 1.7 (1.0-2.2) Lipase 337 H (11-82) U/L Review of Systems CONSTITUTIONAL: No weight loss, fever, chills, weakness or fatigue. HEENT: Eyes: No visual loss, blurred vision, double vision or yellow sclerae. Ears, Nose, Throat: No hearing loss, sneezing, congestion, runny nose or sore throat. SKIN: No rash or itching. CARDIOVASCULAR: No chest pain, chest pressure or chest discomfort. No palpitations or edema. No change in cardiovascular endurance. RESPIRATORY: No shortness of breath (exertional or resting), cough or sputum. GASTROINTESTINAL: See above. GENITOURINARY: No dysuria, urgency, frequency, nocturia. NEUROLOGICAL: No headache, dizziness, syncope, paralysis, ataxia, numbness or tingling in the extremities. No change in bowel or bladder control. No memory loss. MUSCULOSKELETAL: Some chronic muscle, back pain, joint pain and stiffness. HEMATOLOGIC: No anemia, bleeding or bruising. LYMPHATICS: No enlarged nodes. No history of splenectomy. PSYCHIATRIC: No history of depression or anxiety. ENDOCRINOLOGIC: No reports of sweating, cold or heat intolerance. No polyuria or polydipsia. ALLERGIES: No history of asthma, hives, eczema or rhinitis. Exam Exam Vital Signs: Vital Signs x48h Temp Pulse Pulse Resp BP BP Pulse Ox 12/16/25 07:50 36.5 C 97 16 141/68 H 92 07/09/25 05:32 36.8 C 105 H 18 152/89 H 96 07/09/25 01:55 36.8 C 106 H 20 145/100 H 93 07/09/25 01:54 96 07/09/25 01:00 117 H 23 124/67 93 General: 49-year old male, appears older than stated age, well developed, well nourished HEENT: Normocephalic, atraumatic, extraocular movement intact, mucous membranes pink and moist, sclera anicteric and not injected, tongue midline, Mallampati 2 Neck: Supple without pain on palpation, mass or bruit Cardiac: Regular rate and rhythm without rub, gallop, or murmur Chest: Clear to auscultation bilaterally Abdomen: Soft, slightly decreased bowel sounds, , tender on the left side just slightly superior and lateral to the umbilicus, no peritoneal findings I could not push hard enough to evaluate for hepatomegaly or splenomegaly without causing the patient undue pain Genitourinary: Deferred Rectal: Deferred Extremities: No gross neurovascular problem, no clubbing, cyanosis or edema, excellent bilateral herpetologist strength Gait: Not evaluated as I did not have the patient get out of the bed Psychiatric: Alert and oriented to person place and time, asks and answers questions appropriately, mood and affect appropriate Conclusion/Plan Problem List (1) Pancreatitis: (2) Pancreatic pseudocyst: (3) Alcohol abuse: Plan This patient is an not a surgical candidate at our hospital. We do not have the resources to take care of him if he indeed needs an operation. He certainly can be supported medically and a repeat CT scan should be performed in approximately a week to determine whether or not a pseudocyst has developed. The splenic thrombosis is likely due to his pancreatitis. I explained to him in no uncertain terms that if he does not stop drinking alcohol I do not expect him to survive 5 years. I explained to him the pathophysiology of acute as well as chronic pancreatitis. Additionally I explained what occurs with cirrhosis. He clearly has varices but no ascites and consideration of a TIPS can and likely should be discussed with him. Again, this is not a service that we offer at our hospital. I think that the current therapeutic plan includes: Support with IV fluids as well as pain medication Repeat CT scan to determine whether or not a pseudocyst develops Support and guidance to have the patient's stop drinking alcohol Should this patient require emergent gastric or esophageal surgery the risk of bleeding with the varices and the increased pressures is prohibitive at this hospital Establish care with a formal remedial project manager for treatment options moving forward CPT 83245 Lab Results Lab results reviewed: Yes 07/08/25 21:29 07/08/25 21:29
--- NOTE | 2025-07-09 14:22 | PHARMACY PROGRESS NOTE ---
Best Possible Medication History Admit Date and Time: 07/09/25 0934 Home Medications Medication Instructions Recorded Confirmed Type propranolol 20 mg tablet 20 mg PO BID Anxiety 2 07/09/25 History amlodipine 5 mg tablet 5 mg PO DAILY #30 tabs 02/2607/09/25 Rx pantoprazole 20 mg tablet,delayed 20 mg PO BID Heartbu rn 01/05/24 07/09/25 History release (Protonix) trazodone 50 mg tablet 50 mg PO QPM PRN insomnia 07/09/25 History naloxone 4 mg/actuation nasal spray 1 spray intranasal Q3M PRN opioid 07/31/24 07/09/25 History overdose ondansetron 4 mg disintegrating 4 mg PO Q6H PRN nausea and 08/01/24 07/09/25 Rx tablet vomiting #20 tabs hydrocodone 5 mg-acetaminophen 325 1 tab PO Q4H PRN pa in 07/09/25 07/09/25 History mg tablet sucralfate 1 gram tablet 1 g PO BID 07/09/25 07/09/25 History Processed by: Pharmacy Medications reviewed in ED?: Yes Medication History completed: Yes Patient Interview: Completed Secondary Source(s): Insurance records [facility] Statement: As the person ultimately responsible for medication therapy, providers are able to order a medication from an existing home medication list in [facility] via the "Reconcile Routine" prior to Confirmation of that medication by home support worker. Such practice is discouraged except when the physician, in their clinical judgment, deems that a medical need exists for a medication without regard to previous use.
[2025-07-10 03:53] VITALS: O2SAT 96
[2025-07-10 05:26] LABS: HCT - HEMATOCRIT 35.7 % (42.0-52.0); HGB - HEMOGLOBIN 11.4 g/dL (14.0-18.0); MEAN PLATELET VOLUME 8.6 fL (7.4-11.4); PLT - PLATELET COUNT 168.0 10^3/uL (130-450); RED CELL DISTRIBUTION WIDTH 14.4 % (12.0-15.0)
[2025-07-10 05:47] LABS: ALT ALANINE AMINOTRANSFERASE 8.0 IU/L (10-60); AST ASPARTATE AMINOTRANSFERASE 14.0 IU/L (10-42); BUN - BLOOD UREA NITROGEN 5.0 mg/dL (6-20); CARBON DIOXIDE - CO2 24.0 mmol/L (21-32); CREATININE 0.6 mg/dL (0.6-1.3); GFR - MDRD 143.0 (>89)
--- NOTE | 2025-07-10 07:39 | Discharge Summary ---
"Discharge Summary Admit Date: 07/09/25 Discharge Date: 07/10/25 Discharging Provider: Dr. Sandi Rudolph Primary Care Provider: Chari Bryan Code Status: Attempt Resuscitation Discharge Facility Name: Home, self care DIAGNOSES Discharge Diagnoses with Status of Each Condition: Acute pancreatitis, pancreatic pseudocystpatient presented with acute abdominal pain. CT abdomen/pelvis was read as prominent gastric wall thickening, perigastric fluid inflammatory changes at the gastric body concerning for ulcer with contained perforation versus gastritis. This was reviewed by general surgery, and they believe this was a pancreatic pseudocyst. Patient was started on IV fluids, allowed to have bowel rest, and started on pain control. He was advanced to clear liquids this morning, and tolerated diet well. His abdominal pain had resolved. We discussed staying for 24 hours for closer monitoring versus going home and patient was insistent on going home. He was advised extensively to return if he had any signs of abdominal pain, nausea, vomiting. He was discharged home on his sucralfate, Protonix. He will need close follow- up with general surgery to get a repeat CAT scan to ensure stability and resolution of the pseudocyst. He was also advised extensively to abstain from alcohol, as this will exacerbate and worsen underlying conditions. He has a bottle of naltrexone at home prescribed by his primary care provider, and is willing to try it. He is also willing to look into outpatient alcohol rehabilitation resources, but does not want to go to inpatient rehab at this time. Esophageal varicespatient needs close follow-up with primary care provider as well as alcohol law enforcement agent in the outpatient setting. Chronic alcohol usepatient is willing to look into outpatient alcohol resources at this time. Hypertensioncontinue home amlodipine. HPI History of Present Illness: Per Dr. Marie Cates: Mr. Chou is a 49yo M with a h/o chronic pancreatitis, ETOH abuse, portal vein thrombosis, esophageal varices, opiod dependence. He presented to the ED with severe epigastric pain, more left than right. pain persistent but intermittently worse. cramping and stabbing pain that radiates to his back. pain is associated with nausea. He is unable to eat. workup demonstrated a lipase level in bruce 300s, lower than previous levels. CT abdomen demonstrated pancreatic inflammation and fluid collection. this was discussed with the surgeon oncall, who believes collection to be a pseudocyst. It was advised that patient be admitted for further management wiht surgery consultation. patient endorses continued ETOH use, last drink was 2 days ago at the start of the his abdominal pain. He consumed 3-4 vodka based cocktails. he no longer takes pancreatic enzymes for his chronic pancreatitis due to cost. He is not on anticoagulation at this time. This visit was performed using telehealth tools, including phone and live-video. patient provided verbal consent to complete this telemedicine encounter. During the time my interview and evaluation, the patient was located at [facility] in the [facility], I was located in [place]. CONSULTS | PROCEDURES Consultations: General surgery Procedures: Abdomen/pelvis CTprominent gastric wall thickening, perigastric fluid inflammatory changes at the gastric body, concerning for ulcer with contained perforation versus prominent gastritis. HOSPITAL COURSE Hospital Course: Patient is a 49-year-old male with a history of chronic alcohol use, chronic pancreatitis, portal vein thrombosis who presented with acute abdominal pain. CT abdomen/pelvis was read as prominent gastric wall thickening, perigastric fluid inflammatory changes at the gastric body concerning for ulcer with contained perforation versus gastritis. This was reviewed by general surgery, and they believe this was a pancreatic pseudocyst. Patient was started on IV fluids, allowed to have bowel rest, and started on pain control. He was advanced to clear liquids this morning, and tolerated diet well. His abdominal pain had resolved. We discussed staying for 24 hours for closer monitoring versus going home and patient was insistent on going home. He was advised extensively to return if he had any signs of abdominal pain, nausea, vomiting. He was discharged home on his sucralfate, Protonix. He will need close follow- up with general surgery to get a repeat CAT scan to ensure stability and resolution of the pseudocyst. He was also advised extensively to abstain from alcohol, as this will exacerbate and worsen underlying conditions. He has a bottle of naltrexone at home prescribed by his primary care provider, and is willing to try it. He is also willing to look into outpatient alcohol rehabilitation resources, but does not want to go to inpatient rehab at this time. He was discharged home in stable condition, but will need extensive and close monitoring outpatient with primary care provider and surgical team. ALLERGIES Allergies Allergy/AdvReac Type Severity Reaction Status Date / Time No Known Drug Allergies Allergy Verified 07/08/25 21:22 MEDICATIONS Ambulatory Orders Medication Instructions Recorded Confirmed propranolol 20 mg tablet 20 mg PO BID Anxiety 2 07/09/25 amlodipine 5 mg tablet 5 mg PO DAILY #30 tabs 02/2607/09/25 pantoprazole 20 mg tablet,delayed 20 mg PO BID Heartbu rn 01/05/24 07/09/25 release (Protonix) trazodone 50 mg tablet 50 mg PO QPM PRN insomnia 07/09/25 naloxone 4 mg/actuation nasal spray 1 spray intranasal Q3M PRN opioid 07/31/24 07/09/25 overdose ondansetron 4 mg disintegrating 4 mg PO Q6H PRN nausea and 08/01/24 07/09/25 tablet vomiting #20 tabs hydrocodone 5 mg-acetaminophen 325 1 tab PO Q4H PRN pa in 07/09/25 07/09/25 mg tablet sucralfate 1 gram tablet 1 g PO BID 07/09/25 07/09/25 PHYSICAL EXAM AT DISCHARGE Vital Signs: Vital Signs x48h Temp Pulse Resp BP Pulse Ox 07/10/25 07:45 99.0 F 110 H 18 170/110 H 96 General Appearance: positive No acute distress and Alert; negative Anxious Eyes Bilateral: positive Normal inspection, PERRL and EOMI ENT: positive ENT inspection nml, Pharynx nml and No signs of dehydration Neck: positive Nml inspection, Thyroid nml and No JVD Respiratory: positive Chest non-tender, No respiratory distress and Breath sounds nml Cardiovascular: positive Regular rate & rhythm and No gallop Peripheral Pulses: positive 2+ Abdomen: positive Nml bowel sounds, No distention and Other (Mild tenderness to epigastric region to deep palpation); negative Rebound, Hepatomegaly or Splenomegaly Back: positive Nml inspection; negative CVA tenderness (R) or CVA tenderness (L) Skin: positive Color nml, No rash, Warm and Dry Extremities: positive Non-tender, Full ROM, Nml appearance and No pedal edema Neurologic/Psychiatric: positive Oriented x3, Motor nml and Mood/affect nml LABS 07/10/25 05:21 07/10/25 05:21 DIAGNOSTIC IMAGING Diagnostic Imaging Results: Final report reviewed FOLLOW UP Follow Up: Follow-up with general surgery. Follow-up with primary care provider. TIME SPENT Time Spent in Discharge (Minutes): 35 Discharge Plan Discharge Patient Disposition: Home, Self Care Condition: Stable Prescriptions: Continued propranolol 20 MG tablet 20 mg PO BID Patient Comments: take 1 tablet by mouth twice a day if needed amlodipine 5 MG tablet 5 mg PO DAILY Qty: 30 0RF pantoprazole [Protonix] 20 MG tablet,delayed release (DR/EC) 20 mg PO BID trazodone 50 mg tablet 50 mg PO QPM PRN (Reason: insomnia) naloxone 4 mg/actuation spray,non-aerosol 1 spray INTRANASAL Q3M PRN (Reason: opioid overdose) Patient Comments: CALL 911 ADMINISTER A SINGLE spray INTO ONE NOSTRIL repeat in 3 MINUTES IF NO OR MINIMAL RESPONSE ondansetron 4 mg Tablet,Disintegrating 4 mg PO Q6H PRN (Reason: nausea and vomiting) Qty: 20 0RF hydrocodone-acetaminophen 5-325 mg tablet 1 tab PO Q4H PRN (Reason: pain) sucralfate 1 gram tablet 1 g PO BID Activity Restrictions: Activity as Tolerated Diet: Regular Health Concerns: You were admitted for pancreatitis and a pancreatic pseudocyst formation. You may resume eating as soon as you feel hungry and can tolerate food. Start with small, low-fat meals containing carbohydrates and proteins, gradually increasing the amount over 3-6 days as tolerated. There is no need to start with only clear liquidsyou can eat soft or solid foods right away. Eating helps protect your gut and promotes healing. If you develop diarrhea or oily stools after discharge, contact your doctor, as you may need pancreatic enzyme supplements. I understand these have already been prescribed for you. Pain Management Take pain medications as prescribed. Contact your doctor if pain worsens or is not controlled with your current medications. Activity You may gradually resume normal activities as tolerated. Rest when needed and avoid heavy lifting or strenuous exercise until cleared by your doctor. What to Watch For Seek immediate medical attention if you experience: - Severe or worsening abdominal pain - Persistent nausea or vomiting that prevents eating or drinking - Fever (temperature above 100.4F or 38C) - Yellowing of skin or eyes (jaundice) - Difficulty breathing or chest pain Pancreatic Pseudocyst Monitoring If you have a pancreatic pseudocyst (a fluid collection that can develop after pancreatitis), you will need regular follow-up. Most pseudocysts resolve on their own without treatment. However, contact your doctor if you develop new or worsening symptoms such as pain, inability to eat, fever, or persistent nausea and vomiting, as these may indicate the pseudocyst needs drainage. Follow-Up Care Attend all scheduled follow-up appointments. Your doctor may order blood tests or imaging studies to monitor your recovery and check for complications such as fluid collections or diabetes. I have attached the surgeons number below, Dr. Tran. Please call in the next week to make an appointment. He will then order a follow-up CT scan to ensure that your cyst is healing appropriately. This CT scan should be done in the next 1-2 weeks. Preventing Future Episodes The most important step is addressing what caused your pancreatitis: - If caused by alcohol: Complete abstinence from alcohol is essential. Ask your doctor about alcohol cessation programs and support resources. - Please continue to seek support in the outpatient for alcohol use. We spoke about the medication naltrexone, which I understand you have at home. This can help prevent cravings. Medications Continue all prescribed medications as directed. If you were started on pancreatic enzymes, take them with meals and snacks. Contact your doctor's office for: - Questions about your diet or medications - Persistent diarrhea or oily stools - Weight loss or difficulty maintaining nutrition - Any new or concerning symptoms Emergency Contact If you experience severe symptoms listed above, call 911 or go to the nearest emergency department immediately. Print Language: Mos[place] Patient Instructions: Pancreatitis Acute Dc Stand Alone Forms: PCP List, SBIRT Follow-up Care: Coleman Tran MD [Provider Admit Priv/Credential, Surgery, General] - 1 Week CHARI BRYAN MD [Primary Care Provider, Family Practice] Vitals documented within 30 minutes of discharge?: Yes"
[2025-07-10 08:03] VITALS: BP 170/110; TEMP 99
--- NOTE | 2025-07-10 18:25 | MISCELLANEOUS PROVIDER NOTE ---
Miscellaneous Provider Note - Note: At 6:20 PM, I was informed by charge gang weigher that patient's blood cultures were po sitive for gram-positive cocci in clusters (lab called him). I called the patient immediately, and advised him to return to the ER for IV antibiotics, and further workup and treatment. Patient stated that he was at work, and he was feeling fine, and had no symptoms. He states that he was going to try to come in later that evening or early in the morning. If blood cultures come back as a contaminant, for coagulase-negative staph, I will continue to keep the patient updated. In the meantime, he should be admitted for IV vancomycin until speciation returns.
== END 2025-07-10 07:55 | disposition home or self-care (01) | DRG 439 ==
LOC: MS2 21:17 → ED 21:17 → MS2 07-09 01:54
PROVIDERS: ADMIT Hospitalist; ATTEND Hospitalist

== ENCOUNTER 2025-07-10 22:25 | Inpatient (IN) ==
--- OUTSIDE RECORDS SUMMARY | 2025-07-10 22:57 | EXTERNAL MEDICAL SUMMARY RPT | Continuity of Care Document ---
Author Organization [facility] Address [address] [place] [id number] Phone Allergies and Intolerances date description facility reaction severity 2025-01-18 10:00 [id number]^No Known Drug Allergies^^No Known Drug Allergies^^allergy.id [facility] (no reaction) (no severity) 2025-04-15 10:00 [id number]^No Known Drug Allergies^^No Known Drug Allergies^^allergy.id [facility] (no reaction) (no severity) 2025-07-08 10:00 [id number]^No Known Drug Allergies^^No Known Drug Allergies^^allergy.id [facility] (no reaction) (no severity) Problems date description facility 2025-04-15 11:20 Acute pancreatitis w ithout necrosis or infection, unspecified [facility] 2025-04-17 09:22 Acute pancreatitis w ithout necrosis or infection, unspecified [facility] 2025-04-17 09:22 Right upper quadrant pain [facility] 2025-04-17 09:22 Epigastric pain [facility] 2025-04-17 09:22 Unspecified abdominal pain [facility] [employer] 2025-04-23 14:11 Unspecified abdominal pain [facility] 2025-07-09 01:20 Acute pancreatitis w ithout necrosis or infection, unspecified [facility] 2025-07-09 01:20 Unspecified abdominal pain [facility] 2025-07-09 01:26 Acute pancreatitis w ithout necrosis or infection, unspecified [facility] 2025-07-09 01:26 Unspecified abdominal pain [facility] 2025-07-09 01:49 Acute pancreatitis w ithout necrosis or infection, unspecified [facility] 2025-07-09 01:49 Unspecified abdominal pain [facility] 2025-07-09 01:50 Acute pancreatitis w ithout necrosis or infection, unspecified [facility] 2025-07-09 01:50 Unspecified abdominal pain [facility] 2025-07-09 02:14 Alcohol abuse, uncomplicated [facility] 2025-07-09 02:14 Acute pancreatitis w ithout necrosis or infection, unspecified [facility] 2025-07-09 02:14 Pseudocyst of pancreas [facility] 2025-07-09 02:14 Unspecified abdominal pain [facility] 2025-07-09 09:06 Alcohol abuse, uncomplicated [facility] 2025-07-09 09:06 Acute pancreatitis w ithout necrosis or infection, unspecified [facility] 2025-07-09 09:06 Pseudocyst of pancreas [facility] 2025-07-09 09:06 Unspecified abdominal pain [facility] 2025-07-09 09:32 Alcohol abuse, uncomplicated [facility] 2025-07-09 09:32 Acute pancreatitis w ithout necrosis or infection, unspecified [facility] 2025-07-09 09:32 Pseudocyst of pancreas [facility] 2025-07-09 09:32 Unspecified abdominal pain [facility] 2025-07-09 09:37 Alcohol abuse, uncomplicated [facility] 2025-07-09 09:37 Acute pancreatitis w ithout necrosis or infection, unspecified [facility] 2025-07-09 09:37 Pseudocyst of pancreas [facility] 2025-07-09 09:37 Unspecified abdominal pain [facility] 2025-07-09 11:25 Alcohol abuse, uncomplicated [facility] 2025-07-09 11:25 Acute pancreatitis w ithout necrosis or infection, unspecified [facility] 2025-07-09 11:25 Pseudocyst of pancreas [facility] 2025-07-09 11:25 Unspecified abdominal pain [facility] 2025-07-10 07:39 Alcohol abuse, uncomplicated [facility] 2025-07-10 07:39 Acute pancreatitis w ithout necrosis or infection, unspecified [facility] 2025-07-10 07:39 Pseudocyst of pancreas [facility] 2025-07-10 07:39 Unspecified abdominal pain [facility] 2025-07-10 07:40 [facility], [facility]25-[facility] 07:40 Acute pancreatitis w ithout necrosis or infection, unspecified [facility] 2025-07-10 07:40 Pseudocyst of pancreas [facility] 2025-07-10 07:40 Unspecified abdominal pain [facility] 2025-07-10 07:45 Alcohol abuse, uncomplicated [facility] 2025-07-10 07:45 Acute pancreatitis w ithout necrosis or infection, unspecified [facility] 2025-07-10 07:45 Pseudocyst of pancreas [facility] 2025-07-10 07:45 Unspecified abdominal pain [facility] 2025-07-10 07:47 Alcohol abuse, uncomplicated [facility] 2025-07-10 07:47 Acute pancreatitis w ithout necrosis or infection, unspecified [facility] 2025-07-10 07:47 Pseudocyst of pancreas [facility] 2025-07-10 07:47 Unspecified abdominal pain [facility] 2025-07-10 08:04 Alcohol abuse, uncomplicated [facility] 2025-07-10 08:04 Acute pancreatitis w ithout necrosis or infection, unspecified [facility] 2025-07-10 08:04 Pseudocyst of pancreas [facility] 2025-07-10 08:04 Unspecified abdominal pain [facility] Results/Labs test date facility value unit notes Result panel 1 NUCLEATED RED BLOOD CELLS AUTO 2025-04-15 08:22 [facility] 0.0 /100wbc (missing) NRBC ABSOLUTE COUNT (AUTO) 2025-04-15 08[facility] 0.00 x10 3/ul (missing) BASOPHILS # (AUTO) 2025-04-15 08:22 [facility] 0.1 10 3/ul (missing) EOSINOPHILS # (AUTO) 2025-04-15 08:22 [facility]1 10 3/ul (missing) BILIRUBIN,TOTAL 2025-04-15 08:22 [facility] 0.4 mg/dl As of January 2023 testing method has changed, this may include reference ranges. CREATININE 2025-04-15 08:22 [facility] 0.9 mg/dl As of January 2023 testing method has changed, this may include reference ranges. MONOCYTES # (AUTO) 2025-04-15 08:22 [facility] 1.1 10 3/ul (missing) MAGNESIUM 2025-04-15 08:22 [facility] 1.3 mg/dl As of January 2023 testing method has changed, this may include reference ranges. ALBUMIN/GLOBULIN RATIO 2025-04-15 08:22 [facility] 1.7 (missing) (missing) CHLORIDE 2025-04-15 08:22 [facility] 100 mmol/l As of January 2023 testing method has changed, this may include reference ranges. LIPASE 2025-04-15 08:22 [facility] 1090 u/l As of January 2023 testing method has changed, this may include reference ranges. ANION GAP 2025-04-15 08:22 [facility] 13.0 (missing) (missing) RED CELL DISTRIBUTION WIDTH 2025-04-15 08:22 [facility] 13.8 % (missing) NEUTROPHILS # (AUTO) 2025-04-15 08:22 [facility] 13.9 10 3/ul (missing) SODIUM 2025-04-15 08:22 [facility] 138 mmol/l (missing) HGB - HEMOGLOBIN 2025-04-15 08:22 [facility] 15.2 g/dl (missing) ETOH - ETHANOL 2025-04-15 08:22 [facility] 160.2 mg/dl Blood Alcohol Levels Level [...] reference ranges. ALT ALANINE AMINOTRANSFERASE 2025-04-15 08:22 [facility] 17 iu/l As of January 2023 testing method has changed, this may include reference ranges. WHITE BLOOD COUNT 2025-04-15 08: [facility] 18.5 x10 3/ul (missing) LDH - LACTATE DEHYDROGENASE 2025-04-15 08:22 [facility] 181 iu/l As of January 2023 testing method has changed, this may include reference ranges. GLUCOSE 2025-04-15 08: [facility] 187 mg/dl As of January 2023 testing method has changed, this may include reference ranges. GLOBULIN 2025-04-15 08: [facility] 2.7 g/dl (missing) AST ASPARTATE AMINOTRANSFERASE 2025-04-15 08: [facility] 25 iu/l As of January 2023 testing method has changed, this may include reference ranges. CARBON DIOXIDE - CO2 2025-04-15 08: [facility] 25 mmol/l As of January 2023 testing method has changed, this may include reference ranges. LYMPHOCYTES # (AUTO) 2025-04-15: [facility] 3.3 10 3/ul (missing) POTASSIUM 2025-04-15 08: [facility] 3.8 mmol/l As of January 2023 testing method has changed, this may include reference ranges. MEAN CORPUSCULAR HEMOGLOBIN 2025-04-15: [facility] 31.1 pg (missing) PLT - PLATELET COUNT 2025-04-15 08: [facility] 331 10 3/ul (missing) TRIGLYCERIDES 2025-04-15 08:22 [facility] 332 mg/dl Triglyceride Risk Classification <150 mg/dL Normal 150-199 mg/dL Borderline High 200-499 mg/dL High >500 mg/dL Very High MEAN CORPUSCULAR HGB CONC 2025-04-15 08: [facility] 34.2 g/dl (missing) ALBUMIN 2025-04-15 08: [facility] 4.5 g/dl As of January 2023 testing method has changed, this may include reference ranges. RED BLOOD COUNT 2025-04-15 08: [facility] 4.88 10 6/ul (missing) HCT - HEMATOCRIT 2025-04-15 08:22 [facility] 44.5 % (missing) TOTAL PROTEIN 2025-04-15 08:22 [facility] 7.2 g/dl As of January 2023 testing method has changed, this may include reference ranges. ALKALINE PHOSPHATASE 2025-04-15 08:22 [facility] 89 iu/l As of January 2023 testing method has changed, this may include reference ranges. BUN - BLOOD UREA NITROGEN 2025-04-15 08:22 [facility] 9 mg/dl As of January 2023 testing method has changed, this may include reference ranges. MEAN PLATELET VOLUME 2025-04-15 08: [facility] 9.0 fl (missing) CALCIUM 2025-04-15 08: [facility] 9.1 mg/dl As of January 2023 testing method has changed, this may include reference ranges. GFR - MDRD 2025-04-15 08: [facility] 90 (missing) The IDMS-traceable MDRD Study Equation [...] September 2011. MEAN CORPUSCULAR VOLUME 2025-04-15 08:22 [facility] 91.2 fl (missing) Result panel 2 NUCLEATED RED BLOOD CELLS AUTO 2025-07-08:29 [facility] 0.0 /100wbc (missing) BASOPHILS # (AUTO) 2025-07-08 21:29 [facility] 0.0 10 3/ul (missing) EOSINOPHILS # (AUTO) 2025-07-08 21:29 [facility] 0.0 10 3/ul (missing) NRBC ABSOLUTE COUNT (AUTO) 2025-07-08 21:29 [facility] 0.00 x10 3/ul (missing) MONOCYTES # (AUTO) 2025-07-08 21:29 [facility] 0.7 10 3/ul (missing) CREATININE 2025-07-08 21:29 [facility] 0.8 mg/dl As of January 2023 testing method has changed, this may include reference ranges. BILIRUBIN,TOTAL 2025-07-08 21:29 [facility] 0.9 mg/dl As of January 2023 testing method has changed, this may include reference ranges. LYMPHOCYTES # (AUTO) 2025-07-08 21:29 [facility] 1.0 10 3/ul (missing) ALBUMIN/GLOBULIN RATIO 2025-07-08 21:29 [facility] 1.7 (missing) (missing) GFR - MDRD 2025-07-08 21:29 [facility] 103 (missing) The IDMS-traceable MDRD Study Equation has [...] caring for patients older than 70. References: http://www.nkdep. nih.gov/lab-evalu ation/gfr/creatin ine-stand ardization, last updated September 2011. NEUTROPHILS # (AUTO) 2025-07-08 21:29 [facility] 12.3 10 3/ul (missing) ALT ALANINE AMINOTRANSFERASE 2025-07-08 21:29 [facility] 13 iu/l As of January 2023 testing method has changed, this may include reference ranges. SODIUM 2025-07-08 21:29 [facility] 135 mmol/l (missing) BUN - BLOOD UREA NITROGEN 2025-07-08 21:29 [facility] 14 mg/dl As of January 2023 testing method has changed, this may include reference ranges. ANION GAP 2025-07-08 21:29 [facility] 14.0 (missing) (missing) WHITE BLOOD COUNT 2025-07-08 21:29 [facility] 14.1 x10 3/ul (missing) RED CELL DISTRIBUTION WIDTH 2025-07-08 21:29 [facility] 14.3 % (missing) HGB - HEMOGLOBIN 2025-07-08 21:29 [facility] 14.5 g/dl (missing) GLOBULIN 2025-07-08 21:29 [facility] 2.8 g/dl (missing) GLUCOSE 2025-07-08 21:29 [facility] 200 mg/dl As of January 2023 testing method has changed, this may include reference ranges. AST ASPARTATE AMINOTRANSFERASE 2025-07-08 21:29 [facility] 23 iu/l As of January 2023 testing method has changed, this may include reference ranges. CARBON DIOXIDE - CO2 2025-07-08:29 [facility] 25 mmol/l As of January 2023 testing method has changed, this may include reference ranges. MEAN CORPUSCULAR HEMOGLOBIN 2025-07-08:29 [facility] 31.9 pg (missing) MEAN CORPUSCULAR HGB CONC 2025-07-08:29 [facility] 33.9 g/dl (missing) PLT - PLATELET COUNT 2025-07-08:29 [facility] 337 10 3/ul (missing) LIPASE 2025-07-08 21:29 [facility] 337 u/l As of January 2023 testing method has changed, this may include reference ranges. POTASSIUM 2025-07-08:29 [facility] 4.0 mmol/l As of January 2023 testing method has changed, this may include reference ranges. RED BLOOD COUNT 2025-07-08:29 [facility] 4.55 10 6/ul (missing) ALBUMIN 2025-07-08:29 [facility] 4.7 g/dl As of January 2023 testing method has changed, this may include reference ranges. HCT - HEMATOCRIT 2025-07-08:29 [facility] 42.8 % (missing) TOTAL PROTEIN 2025-07-08:29 [facility] 7.5 g/dl As of January 2023 testing method has changed, this may include reference ranges. MEAN PLATELET VOLUME 2025-07-08 21:29 [facility] 8.4 fl (missing) CALCIUM 2025-07-08:29 [facility] 9.3 mg/dl As of January 2023 testing method has changed, this may include reference ranges. ALKALINE PHOSPHATASE 2025-07-08 21:29 [facility] 94 iu/l As of January 2023 testing method has changed, this may include reference ranges. MEAN CORPUSCULAR VOLUME 2025-07-08 21:29 [facility] 94.1 fl (missing) CHLORIDE 2025-07-08 21:29 [facility] 96 mmol/l As of January 2023 testing method has changed, this may include reference ranges. Result panel 3 MAGNESIUM 2025-07-09 04:54 [facility] 1.3 mg/dl As of January 2023 testing method has changed, this may include reference ranges. ESTIMATED AVERAGE GLUCOSE 2025-07-09 04:54 [facility] 134 mg/dl (missing) HEMOGLOBIN A1c% 2025-07-09 04:54 [facility] 6.3 % The [place] [employer] (ADA) has made the following recommendations: Monitoring HbA1c in Diabetic Patients: A1c (NGSP%) Goal <8 Less Stringent Goal <7 General Goal <6.5 More Stringent Goal Diagnosis of Diabetes: A1c (NGSP%) Goal >6.5 Diabetic 5.7-6.4 Pre-Diabetic <5.7 Non-Diabetic TRIGLYCERIDES 2025-07-09 04:54 [facility] 62 mg/d l Triglyceride Risk Classification <150 mg/dL Normal 150-199 mg/dL Borderline High 200-499 mg/dL High >500 mg/dL Very High Result panel 4 BLOOD CULTURE ID [facility] 2025-07-09 08:14 [facility] (missing) (missing) (missing) BLOOD CULTURE ID [facility] 2025-07-09 08:14 [facility] -See Blood Culture result for susceptibilities. (missing) (missing) BLOOD CULTURE ID [facility] 2025-07-09 08:14 [facility] [id number] (missing) (missing) CULTURE, BLOOD #1 2025-07-09 08:14 [facility] AERAEROBIC BOTTLE (missing) (missing) BLOOD CULTURE ID [facility] 2025-07-09 08:14 [facility] BCCOLCOLLECTION DATE/TIME (missing) (missing) BLOOD CULTURE ID [facility] 2025-07-09 08:14 [facility] [id number] (missing) (missing) CULTURE, BLOOD #1 2025-07-09 08:14 [facility] Blood culture identification by PCR added (missing) (missing) CULTURE, BLOOD #1 2025-07-09 08:14 [facility] COLLECTEDCOLLECTION BY/DATE/TIME (missing) (missing) CULTURE, BLOOD #1 2025-07-09 08:14 [facility] GPCPCLGRAM POSITIVE COCCI IN CLUSTERS (missing) (missing) CULTURE, BLOOD #1 2025-07-09 08:14 [facility] [id number] STAIN (missing) (missing) BLOOD CULTURE ID PCR 2025-07-09 08:14 [facility] [employer] Identification 2 (BCID2) Panel, a multiplexed nucleic acid (missing) (missing) CULTURE, BLOOD #1 2025-07-09 08:14 [facility] [id number] GROWTH AFTER 1 DAY (missing) (missing) CULTURE, BLOOD #1 2025-07-09 08:14 [facility] [id number] (missing) (missing) CULTURE, BLOOD #1 2025-07-09 08:14 [facility] POSPOSITIVE BLOOD CULTURE (missing) (missing) CULTURE, BLOOD #1 2025-07-09 08:14 [facility] RHANRIGHT HAND (missing) (missing) CULTURE, BLOOD #1 2025-07-09 08:14 [facility] SITECOLLECTION SITE (missing) (missing) BLOOD CULTURE ID PCR 2025-07-09 08:14 [facility] STA.AUStaphylococcus aureus (missing) (missing) BLOOD CULTURE ID PCR 2025-07-09 08:14 [facility] Staphylococcus aureus detected by the [employer] Blood Culture (missing) (missing) BLOOD CULTURE ID PCR 2025-07-09 08:14 [facility] [employer] and select genetic determinants associated with (missing) (missing) BLOOD CULTURE ID PCR 2025-07-09 08:14 [facility] [employer] antimicrobial resistance in blood culture. (missing) (missing) BLOOD CULTURE ID PCR 2025-07-09 08:14 [facility] identification of multiple bacterial and yeast nucleic acids (missing) (missing) BLOOD CULTURE ID PCR 2025-07-09 08:14 [facility] test for the simultaneous qualitative detection and (missing) (missing) Result panel 5 CULTURE, BLOOD #2 2025-07-09 08:18 [facility] NG1D NO GROWTH AFTER 1 DAY (missing) (missing) Result panel 6 CREATININE 2025-07-10 05:21 [facility] 0.6 mg/dl As of January 2023 testing method has changed, this may include reference ranges. BILIRUBIN,TOTAL 2025-07-10 05:21 [facility] 0.7 mg/dl As of January 2023 testing method has changed, this may include reference ranges. ALBUMIN/GLOBULIN RATIO 2025-07-10 05:21 [facility] 1.5 (missing) (missing) MAGNESIUM 2025-07-10 05:21 [facility] 1.5 mg/dl As of January 2023 testing method has changed, this may include reference ranges. CHLORIDE 2025-07-10 05:21 [facility] 103 mmol/l As of January 2023 testing method has changed, this may include reference ranges. HGB - HEMOGLOBIN 2025-07-10 05:21 [facility] 11.4 g/dl (missing) SODIUM 2025-07-10 05:21 [facility] 135 mmol/l (missing) AST ASPARTATE AMINOTRANSFERASE 2025-07-10 05:21 [facility] 14 iu/l As of January 2023 testing method has changed, this may include reference ranges. RED CELL DISTRIBUTION WIDTH 2025-07-10 05:21 [facility] 14.4 % (missing) GFR - MDRD 2025-07-10 05:21 [facility] 143 (missing) The IDMS-traceable MDRD Study Equation has [...] caring for patients older than 70. References: http://www.nkdep. nih.gov/lab-evalu ation/gfr/creatin ine-stand ardization, last updated September 2011. PLT - PLATELET COUNT 2025-07-10 05:21 [facility] 168 10 3/ul (missing) GLOBULIN 2025-07-10 05:21 [facility] 2.4 g/dl (missing) CARBON DIOXIDE - CO2 2025-07-10 05:21 [facility] 24 mmol/l As of January 2023 testing method has changed, this may include reference ranges. POTASSIUM 2025-07-10 05:21 [facility] 3.5 mmol/l As of January 2023 testing method has changed, this may include reference ranges. ALBUMIN 2025-07-10 05:21 [facility] 3.6 g/dl As of January 2023 testing method has changed, this may include reference ranges. RED BLOOD COUNT 2025-07-10 05:21 [facility] 3.61 10 6/ul (missing) MEAN CORPUSCULAR HEMOGLOBIN 2025-07-10 05:21 [facility] 31.6 pg (missing) MEAN CORPUSCULAR HGB CONC 2025-07-10 05:21 [facility] 31.9 g/dl (missing) HCT - HEMATOCRIT 2025-07-10 05:21 [facility] 35.7 % (missing) BUN - BLOOD UREA NITROGEN 2025-07-10 05:21 [facility] 5 mg/dl As of January 2023 testing method has changed, this may include reference ranges. TOTAL PROTEIN 2025-07-10 05:21 [facility] 6.0 g/dl As of January 2023 testing method has changed, this may include reference ranges. ALKALINE PHOSPHATASE 2025-07-10 05:21 [facility] 60 iu/l As of January 2023 testing method has changed, this may include reference ranges. ALT ALANINE AMINOTRANSFERASE 2025-07-10 05:21 [facility] 8 iu/l As of January 2023 testing method has changed, this may include reference ranges. ANION GAP 2025-07-10 05:21 [facility] 8.0 (missing) (missing) CALCIUM 2025-07-10 05:21 [facility] 8.1 mg/dl As of January 2023 testing method has changed, this may include reference ranges. MEAN PLATELET VOLUME 2025-07-10 05:21 [facility] 8.6 fl (missing) WHITE BLOOD COUNT 2025-07-10 05:21 [facility] [employer] 9.6 x10 3/ul (missing) GLUCOSE 2025-07-10 05:21 [facility] 92 mg/dl As of January 2023 testing method has changed, this may include reference ranges. MEAN CORPUSCULAR VOLUME 2025-07-10 05:21 [facility] [employer] 98.9 fl (missing) Social History date description facility
[2025-07-10] MEDS: cefTRIAXone 2 GM in SODIUM CHLORIDE 0.9% MINIBAG 100 ML IV STA (23:34)
--- NOTE | 2025-07-10 23:40 | ED Physician Documentation ---
History of Present Illness Stated complaint Stated Complaint: ABNORMAL LABS History obtained from History obtained from: Patient Additonal information Additional information: 49yM presents after being discharged this morning but then being called back for positive blood culture results from 07/09. patient presents for admission for bacteremia Meds/Allgy Home Medications Ambulatory Orders Medication Instructions Recorded Confirmed propranolol 20 mg tablet 20 mg PO BID Anxiety 2 07/09/25 amlodipine 5 mg tablet 5 mg PO DAILY #30 tabs 02/2607/09/25 pantoprazole 20 mg tablet,delayed 20 mg PO BID Heartbu rn 01/05/24 07/09/25 release (Protonix) trazodone 50 mg tablet 50 mg PO QPM PRN insomnia 07/09/25 naloxone 4 mg/actuation nasal spray 1 spray intranasal Q3M PRN opioid 07/31/24 07/09/25 overdose ondansetron 4 mg disintegrating 4 mg PO Q6H PRN nausea and 08/01/24 07/09/25 tablet vomiting #20 tabs hydrocodone 5 mg-acetaminophen 325 1 tab PO Q4H PRN pa in 07/09/25 07/09/25 mg tablet sucralfate 1 gram tablet 1 g PO BID 07/09/25 07/09/25 Allergies Allergies Allergy/AdvReac Type Severity Reaction Status Date / Time No Known Drug Allergies Allergy Verified 07/08/25 21:22 PFSH Active Problems All Active Problems (Updated 07/11/25 @ 00:00 by ) Bacteremia (Acute) Pancreatic pseudocyst (Acute) Hypertension (Acute) 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 (Date/Year): n/a Number of Years Smoked: 20 How many cigarettes a day do you smoke? (20 cigarettes=1 Pk): 10 Second hand tobacco smoke exposure: Yes Do you dip or chew tobacco?: No Do you vape?: No Patient requests smoking cessation consult: No Initiate information on smoking cessation: No Living arrangement: At home Living Condition: With family Level: Independent Do you feel safe in your home environment?: Yes History of physical, verbal, emotional, or financial abuse?: No Frequency: Occasional Substance Use: denies use Are you sexually active?: Yes POLST Patient has POLST: No Exam Constitutional normal general appearance, no apparent distress and average body habitus HENMT normocephalic, head/scalp atraumatic and oropharynx normal Eyes PERRL and EOMs intact bilaterally Neck/C-Spine visual inspection normal Respiratory breath sounds equal bilaterally, normal respiratory effort and clear to auscultation bilaterally Cardiovascular normal heart rate noted and regular rhythm noted Gastrointestinal abdomen normal to inspection and abdomen soft to palpation discomfort diffusely to palpation Results Vitals Vitals: Vital Signs - 24 hr 07/10/25 07:45 O2 Source Room air Pain Intensity 0 Oxygen O2 Source Room air PD Medical Decision Making ED course ED course: 49yM p/w abdominal pain, just discharged this morning from the hospital where he was admitted with possible gastritis vs gastric ulcer with fluid collection, colitis, and chronic pancreatitis, with positive blood cultures from yesterday showing prelim staph aureus. plan for admission for bacteremia. antibiotics and cultures ordered. Discharge Plan Discharge Patient Disposition: 66 [facility] DC/Xfer Condition: Stable Clinical Impression: Bacteremia Prescriptions: No Action propranolol 20 MG tablet 20 mg PO BID Patient Comments: take 1 tablet by mouth twice a day if needed amlodipine 5 MG tablet 5 mg PO DAILY Qty: 30 0RF pantoprazole [Protonix] 20 MG tablet,delayed release (DR/EC) 20 mg PO BID trazodone 50 mg tablet 50 mg PO QPM PRN (Reason: insomnia) naloxone 4 mg/actuation spray,non-aerosol 1 spray INTRANASAL Q3M PRN (Reason: opioid overdose) Patient Comments: CALL 911 ADMINISTER A SINGLE spray INTO ONE NOSTRIL repeat in 3 MINUTES IF NO OR MINIMAL RESPONSE ondansetron 4 mg Tablet,Disintegrating 4 mg PO Q6H PRN (Reason: nausea and vomiting) Qty: 20 0RF hydrocodone-acetaminophen 5-325 mg tablet 1 tab PO Q4H PRN (Reason: pain) sucralfate 1 gram tablet 1 g PO BID Print Language: Amharic
[2025-07-11] MEDS ORDERED: HYDROmorphone 0.5 MG/0.5 ML SYRINGE ONE ×2 (00:50→02:43)
[2025-07-11 04:34] LABS: ALT ALANINE AMINOTRANSFERASE 9.0 IU/L (10-60); AST ASPARTATE AMINOTRANSFERASE 20.0 IU/L (10-42); BUN - BLOOD UREA NITROGEN 4.0 mg/dL (6-20); CARBON DIOXIDE - CO2 24.0 mmol/L (21-32); CREATININE 0.6 mg/dL (0.6-1.3); GFR - MDRD 143.0 (>89)
[2025-07-11 04:39] LABS: HCT - HEMATOCRIT 36.1 % (42.0-52.0); HGB - HEMOGLOBIN 11.9 g/dL (14.0-18.0); MEAN PLATELET VOLUME 9.9 fL (7.4-11.4); NRBC ABSOLUTE COUNT (AUTO) 0.00 x10^3/uL; NUCLEATED RED BLOOD CELLS AUTO 0.0 /100WBC; PLT - PLATELET COUNT 196 10^3/uL (130-450); RED CELL DISTRIBUTION WIDTH 13.9 % (12.0-15.0)
[2025-07-11] MEDS ORDERED: ONDANSETRON ODT 4 MG TABLET PO PRN (05:01)
[2025-07-11] MEDS ORDERED: PETROLATUM WHITE 5 GM PACKET TOP PRN (05:01)
[2025-07-11] MEDS ORDERED: NALOXONE HCL NASAL SPRAY KIT NAS PRN (05:01)
[2025-07-11] MEDS ORDERED: CALAMINE/ZINC OXIDE 177 ML BOTTLE TOP PRN (05:01)
[2025-07-11] MEDS ORDERED: PHENOL THROAT SPRAY 177 ML MM PRN (05:01)
[2025-07-11] MEDS ORDERED: CARBOXYMETHYLCELLULOSE OPHTH DROPS EACHEYE PRN (05:01)
[2025-07-11] MEDS ORDERED: ACETAMINOPHEN 325 MG TABLET PO PRN (05:04)
[2025-07-11] MEDS ORDERED: BENZONATATE 100 MG CAPSULE PO PRN (05:04)
[2025-07-11] MEDS ORDERED: HYDROmorphone 0.5 MG/0.5 ML SYRINGE IVP PRN (05:05)
[2025-07-11] MEDS ORDERED: MELATONIN 3 MG TABLET PO PRN (05:07)
[2025-07-11] MEDS ORDERED: ALBUTEROL 1 PUFF INH PRN (05:07)
[2025-07-11] MEDS ORDERED: ALBUTEROL NEB 2.5 MG/3 ML INH PRN ×2 (05:16→05:17)
[2025-07-11] MEDS: KETOROLAC 15 MG/ML VIAL IVP PRN (05:46)
[2025-07-11] MEDS ORDERED: LACTATED RINGERS 1,000 ML IV SCH (06:00)
[2025-07-11] MEDS: PIPERACILLIN/TAZOBACTAM 3.375 GM in SODIUM CHLORIDE 0.9% MINIBAG 100 ML IV ONE (06:06)
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
[2025-07-11] MEDS ORDERED: SODIUM CHLORIDE 0.9% 0 ML IV ONE (06:59)
[2025-07-11 07:00] LABS: CHOL/HDL RATIO 2.5 (<5.0); LDL/HDL RATIO 1.1 (<3.6); VLDL CHOLESTEROL 22 mg/dL
[2025-07-11] MEDS: LACTATED RINGERS 1,000 ML IV SCH (07:02)
[2025-07-11] MEDS: HYDROmorphone 1 MG/ML CARPUJECT IVP STA (07:02)
[2025-07-11] MEDS: KETOROLAC 15 MG/ML VIAL IVP STA ×2 (07:39→23:53)
[2025-07-11] MEDS: HYDROmorphone 0.5 MG/0.5 ML SYRINGE IVP STA ×2 (07:39→23:52)
[2025-07-11] MEDS: VANCOMYCIN INJ 2 GM in SODIUM CHLORIDE 0.9% 500 ML IV ONE (07:42)
[2025-07-11] MEDS: PANTOPRAZOLE 40 MG TABLET PO SCH (07:54)
[2025-07-11] MEDS: oxyCODONE 5 MG TABLET PO PRN (07:54)
[2025-07-11] MEDS: ACETAMINOPHEN 325 MG TABLET PO PRN (07:55)
[2025-07-11] MEDS: VANCOMYCIN INJ 1.5 GM in SODIUM CHLORIDE 0.9% 500 ML IV ONE (08:05)
[2025-07-11] MEDS: SUCRALFATE 1 GM/10 ML UDC PO SCH (08:40)
[2025-07-11] MEDS: HYDROmorphone 1 MG/ML CARPUJECT IVP PRN (08:40)
[2025-07-11] MEDS: LACTOBACILLUS RHAMNOSUS GG CAPSULE PO SCH (08:40)
[2025-07-11] MEDS: PROPRANOLOL 10 MG TABLET PO SCH (08:40)
[2025-07-11] MEDS: ENOXAPARIN 40 MG/0.4 ML SYRINGE SUBQ SCH (09:12)
[2025-07-11] MEDS: PIPERACILLIN/TAZOBACTAM 3.375 GM in SODIUM CHLORIDE 0.9% MINIBAG 100 ML IV SCH (09:44)
[2025-07-11 11:46] LABS: ESTIMATED AVERAGE GLUCOSE 131 mg/dL (70-100); HEMOGLOBIN A1c% 6.2 % (4.27-6.07)
[2025-07-11] MEDS: POTASSIUM CHLORIDE 20 MEQ TABLET PO ONE (11:48)
[2025-07-11] MEDS ORDERED: VANCOMYCIN INJ 1 GM, VANCOMYCIN INJ 250 MG in SODIUM CHLORIDE 0.9% 250 ML IV SCH (15:00)
--- NOTE | 2025-07-11 16:29 | PHARMACY PROGRESS NOTE ---
Best Possible Medication History Admit Date and Time: 07/11/25 0501 Home Medications Medication Instructions Recorded Confirmed Type propranolol 20 mg tablet 20 mg PO BID Anxiety 2 07/09/25 History amlodipine 5 mg tablet 5 mg PO DAILY #30 tabs 02/2607/11/25 Rx pantoprazole 20 mg tablet,delayed 20 mg PO BID Heartbu rn 01/05/24 07/11/25 History release (Protonix) trazodone 50 mg tablet 50 mg PO QPM PRN insomnia 07/11/25 History naloxone 4 mg/actuation nasal spray 1 spray intranasal Q3M PRN opioid 07/31/24 07/11/25 History overdose ondansetron 4 mg disintegrating 4 mg PO Q6H PRN nausea and 08/01/24 07/11/25 Rx tablet vomiting #20 tabs hydrocodone 5 mg-acetaminophen 325 1 tab PO Q4H PRN pa in 07/09/25 07/11/25 History mg tablet sucralfate 1 gram tablet 1 g PO BID 07/09/25 07/11/25 History Processed by: Pharmacy Medications reviewed in ED?: No Medication History completed: Yes Patient Interview: Pt refused (Was done a couple of days ago by pharmacy) Secondary Source(s): Previous admit records [facility] Statement: As the person ultimately responsible for medication therapy, providers are able to order a medication from an existing home medication list in [facility] via the "Reconcile Routine" prior to Confirmation of that medication by clinical support specialist. Such practice is discouraged except when the physician, in their clinical judgment, deems that a medical need exists for a medication without regard to previous use.
[2025-07-11] MEDS: ONDANSETRON 4 MG/2 ML VIAL IVP PRN (17:03)
--- NOTE | 2025-07-11 23:01 | PROVIDER PROGRESS NOTE ---
Hospitalist Cross-cover Note Cross-Cover Note Cross-Cover Note: per rn " Pt has had uncontrolled pain 03/03 since the beginning of this shift at 1530. Have tried oxycodone and dilaudid. Last dilaudid given at 20:28. Last oxycodone given at 19:49. Pt states he "would like to talk to a provider" because he does not want to continue to have this pain." discussed with rn pt had received dilaudid within an hour of starting her shift and he appeared more comfortable, and since then received oxycodone and dilaudid again, but pain not controlled discussed with patient --> he is unsure as to why the pain has gotten worse as he was tolerating pain at home and also was eating regular food. states he has received dilaudid 1 mg + toradol at the same time and that helps pain mgmt longer. advised pt that will give extra dose dilaudid 1 mg but any excessive doses incur risk of sedation, low bp, decreased breathing, etc, and pain will be controlled as best as possible but not likely to be totally eliminated given the chronicity of his condition (pancreatitis). also, pt has h/o gastritis and and varices so to minimize side effects, toradol was removed, but will give x 1 dose to help with pain. will also give reglan x 1 and protonix IV. will repeat CT abdomen pelvis with contrast to compare with prior study pt agrees with and understands plan and thankful for discussion
[2025-07-11] MEDS: METOCLOPRAMIDE 10 MG/2 ML VIAL IVP STA (23:52)
[2025-07-12] MEDS: PANTOPRAZOLE 40 MG VIAL IVP ONE (00:46)
[2025-07-12 05:45] LABS: HCT - HEMATOCRIT 32.0 % (42.0-52.0); HGB - HEMOGLOBIN 10.8 g/dL (14.0-18.0); MEAN PLATELET VOLUME 9.6 fL (7.4-11.4); NRBC ABSOLUTE COUNT (AUTO) 0.00 x10^3/uL; NUCLEATED RED BLOOD CELLS AUTO 0.0 /100WBC; PLT - PLATELET COUNT 152 10^3/uL (130-450); RED CELL DISTRIBUTION WIDTH 13.5 % (12.0-15.0)
[2025-07-12 06:09] LABS: ALT ALANINE AMINOTRANSFERASE 10.0 IU/L (10-60); AST ASPARTATE AMINOTRANSFERASE 20.0 IU/L (10-42); BUN - BLOOD UREA NITROGEN 9.0 mg/dL (6-20); CARBON DIOXIDE - CO2 22.0 mmol/L (21-32); CREATININE 3.2 mg/dL (0.6-1.3); GFR - MDRD 21.0 (>89)
[2025-07-12] MEDS: LACTATED RINGERS 1,000 ML IV ONE (09:28)
--- NOTE | 2025-07-12 09:28 | CT Report ---
PROCEDURE: CT Abdomen/Pelvis W INDICATIONS: severe pain CONTRAST: 80mL Omni 300 TECHNIQUE: After the administration of intravenous contrast, a CT scan of the abdomen and pelvis was performed. Images were recorded and evaluated at appropriate window settings. Reformats: coronal and sagittal. For radiation dose reduction, the following was used: automated exposure control, adjustment of mA and/or kV according to patient size. COMPARISON: 07/08/2025 chronic 06/06/2023 FINDINGS: Image quality: Diagnostic. Lower chest: Interval development of bibasilar atelectasis and minimal pleural effusions. Normal heart size. Liver: No solid mass. Gallbladder: No calcified stones. Gallbladder is less distended than 4 days ago. Question mild gallbladder wall edema. Biliary tree: No intrahepatic or extrahepatic dilation, accounting for age. Spleen: No splenomegaly. Pancreas: Chronic dilatation of the pancreatic duct without obstructing mass. Uncinate process calcifications consistent with chronic pancreatitis. Adrenals: No adrenal nodule. Kidneys and ureters: No hydronephrosis. No renal cystic lesion which requires follow up. No solid mass. Stomach, bowel and peritoneum: Significant interval progression of a process centered at the stomach. Suspect localized perforated gastritis of the greater curvature of the stomach with rapid interval development of a fluid collection to the left and inferior to the gastric body, measuring approximately 4.3 x 4.9 x 5.1 cm. Reference coronal image 35 of series 4 and axial image 71 of series 2. There is subjacent inflammatory change in the wall of the distal transverse colon, a likely secondary phenomenon. Lymph nodes: No central or retroperitoneal adenopathy. Vessels: No infrarenal aortic aneurysm. Patent portal vein. Suspect chronic splenic vein occlusion with development of perisplenic varicosities. PELVIS Reproductive organs: Unremarkable. Bladder: No abnormal wall thickening. Pelvic lymph nodes: No pelvic adenopathy by size criteria. Bones: No aggressive osseous abnormality. Other: No significant ventral or inguinal hernia. IMPRESSION: 1. Suspect perforated gastritis or gastric ulcer involving the body of the stomach with short interval development of a subjacent fluid collection measuring 5.1 cm in maximum diameter. 2. Chronic pancreatitis, chronic dilatation of the pancreatic duct. 3. Inflammatory change of the distal transverse colon wall is likely a secondary phenomenon related to presumed gastric perforation and fluid collection 4. Question development of gallbladder wall edema. 5. Development of bibasilar atelectasis and minimal pleural fluid. Reviewed by: Jules Dominguez MD on 07/12/2025 9:24 AM PST Approved by: Jules Dominguez MD on 07/12/2025 9:24 AM PST Station ID: [id number]
[2025-07-12] MEDS ORDERED: DIATRIZOATE MEGLU/DIATRIZO SOD 30 ML BOTTLE ONE (10:02)
--- NOTE | 2025-07-12 10:05 | PROVIDER PROGRESS NOTE ---
Subjective Subjective Subjective: Overnight, patient had worsening abdominal pain that was not relieved with Dilaudid. He had one episode of nausea, and vomiting. He then had breakfast, and felt better with intake. He denies any fevers or chills. This morning, when he is seen, his abdominal pain is very minimal. He is passing gas, had a bowel movement this morning as well. CT scan reveals possible gastric ulceration with interval development of fluid collection measuring 5.1 cm. Spoke with general surgery who recommends oral contrast and repeat CAT scan to determine whether this is a pseudocyst versus a ulceration. This has been ordered. If patient will need any surgical intervention, he will need transfer. Current Medications Current Medications Current Medications: Current Medications Generic Name Dose Route Start Last Admin Trade Name Freq PRN Reason Stop Dose Admin Acetaminophen 650 mg 07/11/25 07:44 07/12/25 08:23 Acetaminophen 325 Mg Tablet PO 650 mg Q4HR PRN Administration Pain or Fever > 38C (100.4F) Albuterol 2.5 mg 07/11/25 05:17 Albuterol Neb 2.5 Mg/3 Ml INH Q2H PRN Wheezing, Shortness of breath Amlodipine Besylate 5 mg 07/11/25 09:00 07/12/25 08:25 Amlodipine 5 Mg Tablet PO 5 mg DAILY BENNIE Administration Benzonatate 100 mg 07/11/25 05:04 Benzonatate 100 Mg Capsule PO TID PRN Cough Calamine 1 applic 07/11/25 05:01 Calamine/Zinc Oxide 177 Ml Bottle TOP PRN PRN SKIN CARE Carboxymethylcellulose 1 drops 07/11/25 05:01 Carboxymethylcellulose Ophth Drops EACHEYE PRN PRN Dry Eye Cefazolin Sodium 2 gm 07/12/25 08:00 07/12/25 08:26 Cefazolin 2 Gm Vial IVP 2 gm Q8H BENNIE Administration Enoxaparin Sodium 40 mg 07/11/25 09:00 07/12/25 08:22 Enoxaparin 40 Mg/0.4 Ml Syringe SUBQ 40 mg DAILY BENNIE Administration Hydromorphone HCl 1 mg 07/11/25 06:29 07/12/25 09:28 Hydromorphone 1 Mg/Ml Carpuject IVP 1 mg Q4H PRN Administration Severe Pain (Level 7-10) Lactated Ringer's 1,000 mls @ 75 mls/hr 07/11/25 06:00 07/12/25 05:05 Lr IV 75 mls/hr .[id number] BENNIE Administration Potassium Chloride 10 meq in 100 mls @ 100 mls/hr 07/12/25 09:00 Potassium Chloride IV 07/12/25 12:59 Q1H BENNIE Lactobacillus Rhamnosus 1 cap 07/11/25 09:00 07/12/25 08:26 Lactobacillus Rhamnosus Gg Capsule PO 1 cap DAILY BENNIE Administration Melatonin 3 mg 07/11/25 05:07 Melatonin 3 Mg Tablet PO QPM PRN sleep Ondansetron HCl 4 mg 07/11/25 05:01 Ondansetron Odt 4 Mg Tablet PO Q6H PRN nausea and vomiting Ondansetron HCl 4 mg 07/11/25 05:04 07/11/25 17:03 Ondansetron 4 Mg/2 Ml Vial IVP 4 mg Q8H PRN Administration Nausea / Vomiting Oxycodone HCl 5 mg 07/11/25 07:44 07/12/25 08:24 Oxycodone 5 Mg Tablet PO 5 mg Q4HR PRN Administration Moderate Pain (Level 4-6) Pantoprazole Sodium 40 mg 07/11/25 08:00 07/12/25 07:33 Pantoprazole 40 Mg Tablet PO 40 mg QDAC [facility] Administration Petrolatum 1 applic 07/11/25 05:01 Petrolatum White 5 Gm Packet TOP PRN PRN Dry Lips Phenol/Menthol 2 sprays 07/11/25 05:01 Phenol Throat [employer] 177 Ml MM Q2HR PRN Throat Pain Propranolol HCl 20 mg 07/11/25 09:00 07/12/25 08:25 Propranolol 10 Mg Tablet PO 20 mg BID BENNIE Administration Sucralfate 1 gm 07/11/25 09:00 07/12/25 08:24 Sucralfate 1 Gm/10 Ml Udc PO 1 gm BID [facility] Administration Throat Lozenges 1 lozenge 07/11/25 05:01 Benzocaine/Menthol Lozenge MM Q2HR PRN Throat pain Tramadol HCl 25 mg 07/11/25 05:04 Tramadol 50 Mg Tablet PO Q8H PRN Moderate Pain (Level 4-6) Trazodone HCl 50 mg 07/11/25 05:01 Trazodone 50 Mg Tablet PO QPM PRN Insomnia Objective Vital Signs/Intake & Output Reviewed Vital Signs: Yes Vital Signs: Vital Signs x48h Temp Pulse Pulse Resp BP BP Pulse Ox 07/12/25 08:21 77 142/93 H 07/12/25 07:41 97.9 F 69 16 145/93 H 93 07/12/25 05:10 98.2 F 84 16 142/95 H 94 Intake & Output: Intake & Output 07/09/25 07/10/25 07/11/25 07/12/25 23:59 23:59 23:59 23:59 Intake Total 3060 / 3060 1381 / 1381 Balance 3060 / 3060 1381 / 1381 Weight (kg) 79.5 kg Objective General Appearance: positive No acute distress and Alert; negative Anxious Eyes Bilateral: positive Normal inspection, PERRL and EOMI ENT: positive ENT inspection nml, Pharynx nml and No signs of dehydration Neck: positive Nml inspection, Thyroid nml and No JVD Respiratory: positive Chest non-tender, No respiratory distress and Breath sounds nml; negative Wheezes, Rales or Rhonchi Cardiovascular: positive Regular rate & rhythm, No murmur and No gallop; negative Tachycardia or Systolic murmur Abdomen: positive No organomegaly, No distention and Tenderness (Minimal tenderness to epigastric region. No rebound tenderness. No guarding, no rigidity. Bowel sounds active.); negative Guarding or Splenomegaly Back: positive Nml inspection; negative CVA tenderness (R) or CVA tenderness (L) Skin: positive Color nml, No rash, Warm and Dry Extremities: positive Non-tender, Full ROM, Nml appearance and No pedal edema Neurologic/Psychiatric: positive Oriented x3, Motor nml and Mood/affect nml Lab Results 07/12/25 05:14 07/12/25 05:14 Other Labs: Lab Results x24hrs 07/12/25 07/11/25 07/11/25 Range/Units 05:14 06:12 00:08 WBC 10.5 (4.8-10.8) x10^3/uL RBC 3.33 L (4.70-6.10) 10^6/uL Hgb 10.8 L (14.0-18.0) g/dL Hct 32.0 L (42.0-52.0) % MCV 96.1 H (80.0-94.0) fL MCH 32.4 H (27.0-31.0) pg MCHC 33.8 (32.0-36.0) g/dL RDW 13.5 (12.0-15.0) % Plt Count 152 (130-450) 10^3/uL MPV 9.6 (7.4-11.4) fL Neut # (Auto) 8.0 H (1.5-6.6) 10^3/uL Lymph # (Auto) 1.3 L (1.5-3.5) 10^3/uL [place] # (Auto) 0.9 (0.0-1.0) 10^3/uL Eos # (Auto) 0.1 (0.0-0.7) 10^3/uL Baso # (Auto) 0.0 (0.0-0.1) 10^3/uL Absolute Nucleated RBC 0.00 x10^3/uL Nucleated RBC % 0.0 /100WBC Sodium 136 (135-145) mmol/L Potassium 3.1 L (3.5-4.5) mmol/L Chloride 104 (101-111) mmol/L Carbon Dioxide 22 (21-32) mmol/L Anion Gap 10.0 (6-13) BUN 9 (6-20) mg/dL Creatinine 3.2 H (0.6-1.3) mg/dL Estimated GFR (MDRD) 21 L (>89) Glucose 142 H (74-104) mg/dL Estimat Average Glucose 131 H (70-100) mg/dL Hemoglobin A1c % 6.2 H (4.27-6.07) % Calcium 8.0 L (8.5-10.3) mg/dL Magnesium 1.2 L (1.7-2.3) mg/dL Total Bilirubin 0.5 (0.2-1.0) mg/dL AST 20 (10-42) IU/L ALT 10 (10-60) IU/L Alkaline Phosphatase 55 (42-121) IU/L Total Protein 5.4 L (6.4-8.9) g/dL Albumin 3.2 (3.2-5.5) g/dL Globulin 2.2 (2.1-4.2) g/dL Albumin/Globulin Ratio 1.5 (1.0-2.2) Nasal Screen MRSA (PCR) NEGATIVE (NEGATIVE) Assessment/Plan Problem List (1) MSSA bacteremia: Impression: Initially, patient presented with abdominal pain. CT abdomen/pelvis completed 07/08 showed prominent gastric wall thickening, as well as perigastric fluid and inflammatory changes at the gastric body, concern was for perforated ulcer versus pancreatic pseudocyst. Upon discussion with general surgery, favored the latter. Patient's pain improved, and he was discharged home and advised to follow-up closely for repeat CT scan. Blood cultures were drawn on admission, 07/09. 1 out of 2 positive for Staphylococcus aureus. He was advised to return, and started on IV antibiotics. Staphylococcus aureus is typically not a contaminant. Conditions that favor it being so are the fact that it was present in only 1 out of 2 of the bottles, and that it grew out over 20 hours after being drawn. However, patient's clinical picture with leukocytosis, tachycardia, as well as known pseudocyst suggests the contrary. Susceptibilities indicate MSSA, and patient has been started on cefazolin. He will need a 14-day course of IV antibiotics. Source is likely the pseudocyst. No other signs or symptoms of infection including skin or soft tissue. Repeat blood cultures drawn 07/11 are no growth to date. TTE has been completed, read remains pending. Plan for PICC line placement 07/13. Plan for home infusions, social work is following. (2) Pancreatic pseudocyst: (3) Acute abdominal pain: Impression: CT abdomen/pelvis completed 07/08 showed prominent gastric wall thickening, as well as perigastric fluid and inflammatory changes at the gastric body, concern was for perforated ulcer versus pancreatic pseudocyst. Upon discussion with general surgery, favored the latter. Overnight, on 07/12, patient had increasing abdominal pain. No peritoneal signs noted. Abdomen/pelvis CT was repeated which showed suspected perforated gastritis or ulcer with interval development of fluid collection measuring 5.1 cm in maximum diameter. CT scan was repeated with oral contrast, and no extravasation of the contrast was noted. Discussed with general surgery. Continue clear liquids. 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 No signs of hematemesis or active bleeding noted from varices. (5) Portal vein thrombosis: Impression: Chronic, patient currently not on any anticoagulation. He will need close follow-up with GI. (6) Alcohol use: Impression: Patient continues to drink daily. Continue to monitor off CIWA. Patient is not exhibiting signs of alcohol withdrawal at this time. Continue oral thiamine and folic acid supplementation.
[2025-07-12] MEDS: MAGNESIUM SULFATE 2 GRAM 2 GM/50 ML BAG IV ONE (10:30)
[2025-07-12] MEDS: POTASSIUM CHLOR 10 MEQ/100 ML 10 MEQ/100 ML BAG IV SCH (11:04)
[2025-07-12] MEDS: DIATRIZOATE MEGLU/DIATRIZO SOD 30 ML BOTTLE PO ONE (11:52)
--- NOTE | 2025-07-12 12:25 | CT Report ---
PROCEDURE: CT Abdomen/Pelvis WO INDICATIONS: PO contrast only - thank you TECHNIQUE: A CT scan of the abdomen and pelvis was performed without the use of intravenous contrast. Images were recorded and evaluated at appropriate window settings. Reformats: coronal and sagittal. For radiation dose reduction, the following was used: automated exposure control, adjustment of mA and/or kV according to patient size. COMPARISON: CT abdomen/pelvis with contrast from the same date FINDINGS: Image quality: Diagnostic. Lower chest: Unremarkable. Liver: No contour-deforming mass. Gallbladder: Chronically dilated pancreatic duct. Uncinate process calcifications consistent with chronic pancreatitis. Biliary tree: No intrahepatic or extrahepatic dilation, accounting for age. Spleen: No splenomegaly. Pancreas: No pancreatic ductal dilation. Adrenals: No adrenal nodule. Kidneys and ureters: Contrast is present in both kidneys from the study earlier on today. Kidneys are unchanged in appearance. Prolonged retention of contrast may indicate a component of acute renal compromise. Stomach, bowel and peritoneum: Again noted is a fluid collection subjacent to the greater curvature of the stomach, unchanged. There is no extravasation of oral contrast present. Again noted is subjacent inflammatory change in the wall of the distal transverse colon. Diverticulosis. Lymph nodes: No central or retroperitoneal adenopathy. Vessels: No infrarenal aortic aneurysm. Suspect chronic occlusion of the splenic vein with development of small varicosities. Reproductive organs: Unremarkable. Bladder: No abnormal bladder wall thickening. No calcified bladder stones. Pelvic lymph nodes: No adenopathy by size criteria. Bones: No aggressive osseous abnormality. Other: No significant ventral or inguinal hernia. IMPRESSION: 1. Development of a fluid collection immediately subjacent to the stomach as described previously. 2. No extravasation of oral contrast noted. 3. Suspect possible acute kidney compromise. 4. 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 Reviewed by: Jules Dominguez MD on 07/12/2025 12:21 PM PST Approved by: Jules Dominguez MD on 07/12/2025 12:21 PM PST Station ID: [id number]
[2025-07-12] MEDS: PROCHLORPERAZINE 10 MG/2 ML VIAL IVP PRN (16:43)
[2025-07-12] MEDS: HYDROmorphone 1 MG/ML CARPUJECT IVP PRN (16:56)
[2025-07-13 05:16] LABS: HCT - HEMATOCRIT 31.8 % (42.0-52.0); HGB - HEMOGLOBIN 10.7 g/dL (14.0-18.0); MEAN PLATELET VOLUME 9.8 fL (7.4-11.4); PLT - PLATELET COUNT 167.0 10^3/uL (130-450); RED CELL DISTRIBUTION WIDTH 13.6 % (12.0-15.0)
[2025-07-13 05:27] LABS: ALT ALANINE AMINOTRANSFERASE 6.0 IU/L (10-60); AST ASPARTATE AMINOTRANSFERASE 19.0 IU/L (10-42); BUN - BLOOD UREA NITROGEN 12.0 mg/dL (6-20); CARBON DIOXIDE - CO2 20.0 mmol/L (21-32); CREATININE 5.5 mg/dL (0.6-1.3); GFR - MDRD 11.0 (>89)
--- NOTE | 2025-07-13 07:42 | PROVIDER PROGRESS NOTE ---
Subjective Subjective Subjective: Yesterday, after drinking the oral contrast, patient felt nauseous. He had some increasing abdominal pain after retching. He threw up about 2-3 times. He denies any fevers or chills. He occasionally has some night sweats. He is agreeable to PICC line placement today and training with infusion solutions today. Current Medications Current Medications Current Medications: Current Medications Generic Name Dose Route Start Last Admin Trade Name Freq PRN Reason Stop Dose Admin Acetaminophen 650 mg 07/11/25 07:44 07/12/25 12:58 Acetaminophen 325 Mg Tablet PO 650 mg Q4HR PRN Administration Pain or Fever > 38C (100.4F) Albuterol 2.5 mg 07/11/25 05:17 Albuterol Neb 2.5 Mg/3 Ml INH Q2H PRN Wheezing, Shortness of breath Amlodipine Besylate 5 mg 07/11/25 09:00 07/12/25 08:25 Amlodipine 5 Mg Tablet PO 5 mg DAILY BENNIE Administration Benzonatate 100 mg 07/11/25 05:04 Benzonatate 100 Mg Capsule PO TID PRN Cough Calamine 1 applic 07/11/25 05:01 Calamine/Zinc Oxide 177 Ml Bottle TOP PRN PRN SKIN CARE Carboxymethylcellulose 1 drops 07/11/25 05:01 Carboxymethylcellulose Ophth Drops EACHEYE PRN PRN Dry Eye Cefazolin Sodium 2 gm 07/12/25 18:09 07/13/25 06:28 Cefazolin 2 Gm Vial IVP 2 gm Q12H BENNIE Administration Enoxaparin Sodium 30 mg 07/13/25 09:00 Enoxaparin 30 Mg/0.3 Ml Syringe SUBQ DAILY BENNIE Hydromorphone HCl 1 mg 07/12/25 16:50 07/13/25 06:29 Hydromorphone 1 Mg/Ml Carpuject IVP 1 mg Q2H PRN Administration Severe Pain (Level 7-10) Lactated Ringer's 1,000 mls @ 125 mls/hr 07/11/25 06:00 07/13/25 04:45 Lr IV 150 mls/hr .Q8H BENNIE Infusion Lactobacillus Rhamnosus 1 cap 07/11/25 09:00 07/12/25 08:26 Lactobacillus Rhamnosus Gg Capsule PO 1 cap DAILY BENNIE Administration Melatonin 3 mg 07/11/25 05:07 Melatonin 3 Mg Tablet PO QPM PRN sleep Ondansetron HCl 4 mg 07/11/25 05:01 Ondansetron Odt 4 Mg Tablet PO Q6H PRN nausea and vomiting Ondansetron HCl 4 mg 07/11/25 05:04 07/13/25 01:24 Ondansetron 4 Mg/2 Ml Vial IVP 4 mg Q8H PRN Administration Nausea / Vomiting Oxycodone HCl 5 mg 07/11/25 07:44 07/12/25 12:56 Oxycodone 5 Mg Tablet PO 5 mg Q4HR PRN Administration Moderate Pain (Level 4-6) Pantoprazole Sodium 40 mg 07/11/25 08:00 07/13/25 06:28 Pantoprazole 40 Mg Tablet PO 40 mg QDAC BENNIE Administration Petrolatum 1 applic 07/11/25 05:01 Petrolatum White 5 Gm Packet TOP PRN PRN Dry Lips Phenol/Menthol 2 sprays 07/11/25 05:01 Phenol Throat [place] 177 Ml MM Q2HR PRN Throat Pain Multivit/Folic Acid/Iron 1 tab 07/13/25 08:00 Vitamin Tablet PO DAILYWM BENNIE Prochlorperazine Edisylate 10 mg 07/12/25 15:46 07/13/25 03:11 Prochlorperazine 10 Mg/2 Ml Vial IVP 10 mg Q6HR PRN Administration Nausea / Vomiting Propranolol HCl 20 mg 07/11/25 09:00 07/12/25 20:07 Propranolol 10 Mg Tablet PO 20 mg BID BENNIE Administration Sucralfate 1 gm 07/11/25 09:00 07/12/25 20:07 Sucralfate 1 Gm/10 Ml Udc PO 1 gm BID BENNIE Administration Thiamine HCl 100 mg 07/13/25 09:00 Thiamine 100 Mg Tablet PO DAILY BENNIE Throat Lozenges 1 lozenge 07/11/25 05:01 Benzocaine/Menthol Lozenge MM Q2HR PRN Throat pain Tramadol HCl 25 mg 07/12/25 18:09 Tramadol 50 Mg Tablet PO Q12H PRN Moderate Pain (Level 4-6) Trazodone HCl 50 mg 07/11/25 05:01 Trazodone 50 Mg Tablet PO QPM PRN Insomnia Objective Vital Signs/Intake & Output Reviewed Vital Signs: Yes Vital Signs: Vital Signs x48h Temp Pulse Pulse Resp BP Pulse Ox O2 Flow Rate 07/13/25 05:00 97.7 F 76 18 124/64 95 07/13/25 01:00 97.5 F L 82 22 154/91 H 94 Intake & Output: Intake & Output 07/10/25 07/11/25 07/12/25 07/13/25 23:59 23:59 23:59 23:59 Intake Total 3060 / 3060 4472 / 4472 0 / 0 Output Total 100 / 100 Balance 3060 / 3060 4372 / 4372 0 / 0 Weight (kg) 79.5 kg Objective General Appearance: positive No acute distress and Alert; negative Anxious Eyes Bilateral: positive Normal inspection, PERRL and EOMI ENT: positive ENT inspection nml, Pharynx nml and No signs of dehydration Neck: positive Nml inspection, Thyroid nml and No JVD Respiratory: positive Chest non-tender, No respiratory distress and Breath sounds nml; negative Wheezes, Rales or Rhonchi Cardiovascular: positive Regular rate & rhythm, No murmur and No gallop; negative Tachycardia or Systolic murmur Abdomen: positive No organomegaly, No distention and Tenderness (Minimal tenderness to epigastric region. No rebound tenderness. No guarding, no rigidity. Bowel sounds active.); negative Guarding or Splenomegaly Back: positive Nml inspection; negative CVA tenderness (R) or CVA tenderness (L) Skin: positive Color nml, No rash, Warm and Dry Extremities: positive Non-tender, Full ROM, Nml appearance and No pedal edema Neurologic/Psychiatric: positive Oriented x3, Motor nml and Mood/affect nml Lab Results 07/13/25 04:53 07/13/25 04:53 Other Labs: Lab Results x24hrs 07/13/25 Range/Units 04:53 WBC 13.5 H (4.8-10.8) x10^3/uL RBC 3.32 L (4.70-6.10) 10^6/uL Hgb 10.7 L (14.0-18.0) g/dL Hct 31.8 L (42.0-52.0) % MCV 95.8 H (80.0-94.0) fL MCH 32.2 H (27.0-31.0) pg MCHC 33.6 (32.0-36.0) g/dL RDW 13.6 (12.0-15.0) % Plt Count 167 (130-450) 10^3/uL MPV 9.8 (7.4-11.4) fL Sodium 135 (135-145) mmol/L Potassium 3.4 L (3.5-4.5) mmol/L Chloride 105 (101-111) mmol/L Carbon Dioxide 20 L (21-32) mmol/L Anion Gap 10.0 (6-13) BUN 12 (6-20) mg/dL Creatinine 5.5 H (0.6-1.3) mg/dL Estimated GFR (MDRD) 11 L (>89) Glucose 157 H (74-104) mg/dL Calcium 7.9 L (8.5-10.3) mg/dL Magnesium 1.5 L (1.7-2.3) mg/dL Total Bilirubin 0.2 (0.2-1.0) mg/dL AST 19 (10-42) IU/L ALT 6 L (10-60) IU/L Alkaline Phosphatase 51 (42-121) IU/L Total Protein 5.1 L (6.4-8.9) g/dL Albumin 3.0 L (3.2-5.5) g/dL Globulin 2.1 (2.1-4.2) g/dL Albumin/Globulin Ratio 1.4 (1.0-2.2) Assessment/Plan Problem List (1) MSSA bacteremia: Impression: Initially, patient presented with abdominal pain. CT abdomen/pelvis completed 07/08 showed prominent gastric wall thickening, as well as perigastric fluid and inflammatory changes at the gastric body, concern was for perforated ulcer versus pancreatic pseudocyst. Upon discussion with general surgery, favored the latter. Patient's pain improved, and he was discharged home and advised to follow-up closely for repeat CT scan. Blood cultures were drawn on admission, 07/09. 1 out of 2 positive for Staphylococcus aureus. He was advised to return, and started on IV antibiotics. Staphylococcus aureus is typically not a contaminant. Conditions that favor it being so are the fact that it was present in only 1 out of 2 of the bottles, and that it grew out over 20 hours after being drawn. However, patient's clinical picture with leukocytosis, tachycardia, as well as known pseudocyst suggests the contrary. Susceptibilities indicate MSSA, and patient has been started on cefazolin. He will need a 14-day course of IV antibiotics. Source is likely the pseudocyst. No other signs or symptoms of infection including skin or soft tissue. Repeat blood cultures drawn 07/11 are no growth to date. TTE has been completed, no obvious vegetations noted. Plan for PICC line placement today. Plan for home infusions, social work is following. Slight increase in leukocytosis today, continue to monitor. We discussed if there is any worsening pain, or any worsening signs of sepsis, he may require transfer for GI, infectious disease, interventional radiology consultation. (2) Pancreatic pseudocyst: (3) Acute abdominal pain: Impression: CT abdomen/pelvis completed 07/08 showed prominent gastric wall thickening, as well as perigastric fluid and inflammatory changes at the gastric body, concern was for perforated ulcer versus pancreatic pseudocyst. Upon discussion with general surgery, favored the latter. Overnight, on 07/12, patient had increasing abdominal pain. No peritoneal signs noted. Abdomen/pelvis CT was repeated which showed suspected perforated gastritis or ulcer with interval development of fluid collection measuring 5.1 cm in maximum diameter. CT scan was repeated with oral contrast, and no extravasation of the contrast was noted. Discussed with general surgery. Likely pseudocyst not perforation. Continue clear liquids. 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 No signs of hematemesis or active bleeding noted from varices. (5) Portal vein thrombosis: Impression: Chronic, patient currently not on any anticoagulation. He will need close follow-up with GI. (6) Alcohol use: Impression: Patient continues to drink daily. Continue to monitor off CIWA. Patient is not exhibiting signs of alcohol withdrawal at this time. Continue oral thiamine and folic acid supplementation.
[2025-07-13] MEDS: THIAMINE 100 MG TABLET PO SCH (08:40)
[2025-07-13] MEDS: PRENATAL VITAMIN TABLET PO SCH (08:40)
[2025-07-13] MEDS: ENOXAPARIN 30 MG/0.3 ML SYRINGE SUBQ SCH (08:41)
--- NOTE | 2025-07-13 10:18 | ECHO Report ---
Version: 1 Study ID: [id number] [address] [place] [address] Adult Echocardiogram Report Name: KAELA GODOY Study Date: 07/11/2025, 10: 46 AM BP: 141 / 94 mmHg Patient Location: [facility] [place]^2202^01 HR: 72 bpm : 1975 (MM/DD/YYYY) Gender: Male Height: 69 in Age: 49 Years Weight: 175.267 lb BSA: 1.95 m² Reason For Study: ?vegetation History: Bacteremia - concern for vegetation Interpretation Summary No regional wall motion abnormalities are present. Global left ventricular systolic function is normal. The right ventricle is normal in size and function. No vegetation or concerning cardiac valve disease noted. Left Ventricle: The left ventricle is normal in size. There is normal left ventricular wall thickness. Global left ventricular systolic function is normal. The calculated ejection fraction, as determined by the biplane method of disks, is 57%. The visual left ventricular ejection fraction is estimated at 55 to 60%. No regional wall motion abnormalities are present. The overall diastolic pattern is most consistent with impaired left ventricular relaxation with low to normal filling pressures. Right Ventricle: The right ventricle is normal in size and function. The basal right ventricular diameter measured from a right ventricular focused view is 3.8 cm. Aortic Valve: The aortic valve is trileaflet. The aortic valve is normal in structure and function. Cannot exclude aortic valve vegetation. Trace aortic regurgitation is present. Mitral Valve: The mitral valve leaflets appear thickened, but with normal motion. Cannot exclude mitral valve vegetation. No evidence of mitral stenosis is seen. There is trace mitral regurgitation. Tricuspid Valve: The tricuspid valve is normal in structure and function. Cannot exclude tricuspid valve vegetation. There is no tricuspid stenosis. Trace tricuspid regurgitation present. Pulmonic Valve: The pulmonic valve is normal in structure and function. There is no pulmonic valve vegetation. Trace pulmonic valvular regurgitation is present. Left Atrium: The left atrial size is normal. The left atrial volume indexed to body surface area is 21 ml/m2. This refers to the maximal volume measured prior to mitral valve opening. Right Atrium: Right atrial size is normal. The inferior vena cava is normal in diameter (<2.1cm) but collapse <50% with sniff (estimated right atrial pressure 8 mmHg). Atrial Septum: The interatrial septum appears normal, without evidence of shunt by 2D imaging and color Doppler. Aorta: The ascending aorta is not well seen. The aorta at the sinus of Valsalva measures 3.3cm. Pulmonary Artery: The pulmonary artery systolic pressure is normal. The pulmonary artery systolic pressure, calculated from a peak tricuspid regurgitant velocity in conjunction with an estimated right atrial pressure, is 26mmHg. Pericardium/Pleural Space: There is no pericardial effusion. Left Ventricle IVSd: 0.91 cm LVIDd: 5.2 cm LVPWd: 0.93 cm LVIDs: 3.5 cm EDV(MOD-sp4): 99.3 ml LVLd ap4: 9.3 cm ESV(MOD-sp4): 43.7 ml LVLs ap4: 7.9 cm EDV(MOD-sp2): 72.1 ml ESV(MOD-sp2): 32.4 ml Atria LA dimension: 4.8 cm LAV(MOD-sp4): 36.1 ml LAV(MOD-sp2): 34.3 ml Diastolic Function MV dec time: 0.21 sec MV E max dax: 64.0 cm/sec MV A max dax: 72.1 cm/sec Aortic Valve LV V1 max: 106.8 cm/sec LV V1 max P.6 mmHg Ao max P.7 mmHg Ao V2 max: 147.3 cm/sec Tricuspid Valve TR max P.3 mmHg TR max dax: 214.0 cm/sec TV max P.3 mmHg Aorta Ao root diam: 3.3 cm MMode/2D Measurements & Calculations Ao root diam: 3.3 cm BMI: 25.9 kilograms/m² BSA([place]): 1.98 m² EDV(MOD-sp2): 72.1 ml EDV(MOD-sp4): 99.3 ml EF (est.): 56.0 % EF Mod BP: 56.7 % ESV(MOD-sp2): 32.4 ml ESV(MOD-sp4): 43.7 ml IVSd: 0.91 cm LA A4C-A/L: 16.0 cm² LA dimension: 4.8 cm LA ESV-A/L: 44.5 ml LAV(MOD-sp2): 34.3 ml LAV(MOD-sp4): 36.1 ml LVIDd: 5.2 cm LVIDs: 3.5 cm LVLd ap4: 9.3 cm LVLs ap4: 7.9 cm LVPWd: 0.93 cm Doppler Measurements & Calculations Ao max P.7 mmHg Ao V2 max: 147.3 cm/sec Lat E/e': 5.8 LV V1 max: 106.8 cm/sec LV V1 max P.6 mmHg Med E/e': 9.5 MV A max dax: 72.1 cm/sec MV dec time: 0.21 sec MV DVI-pr: 0.89 MV E max dax: 64.0 cm/sec PA acc slope: 757.0 cm/sec² PA acc time: 0.09 sec PA max P.43 mmHg PA V2 max: 77.9 cm/sec RAP systole: 8.0 mmHg TR max P.3 mmHg TR max dax: 214.0 cm/sec TV max P.3 mmHg Other Measurements & Calculations Ao root area: 8.8 cm² EDV(Teich): 130.0 ml EF(MOD-sp2): 55.1 % EF(MOD-sp4): 56.0 % EF(sp-el): 60.2 % EF(Teich): 62.0 % ESV(Teich): 49.5 ml FS: 33.6 % MV E/A: 0.89 PA pr(Accel): 39.6 mmHg RVSP(TR): 26.3 mmHg SV(MOD-sp4): 55.6 ml Procedure Notes: A complete two-dimensional transthoracic echocardiogram was performed (2D, M- mode, Doppler and color flow Doppler). Indication: Evaluate for endocarditis. The patient was comfortable and cooperative throughout the procedure. The underlying rhythm was sinus. CPT Codes: 96455/[id number]: Transthoracic Echo with Spectral and Color Doppler. MD Yael T Agnani 07/13/2025, 10: 18 AM Ordering Physician: Sandi Rudolph Referring Physician: Bree Moreno Performed By: Renetta Mon RDCS
[2025-07-14] MEDS: BENZOCAINE/MENTHOL LOZENGE MM PRN (03:58)
[2025-07-14 05:09] LABS: HCT - HEMATOCRIT 32.0 % (42.0-52.0); HGB - HEMOGLOBIN 10.7 g/dL (14.0-18.0); MEAN PLATELET VOLUME 9.4 fL (7.4-11.4); PLT - PLATELET COUNT 195.0 10^3/uL (130-450); RED CELL DISTRIBUTION WIDTH 13.6 % (12.0-15.0)
[2025-07-14 05:37] LABS: ALT ALANINE AMINOTRANSFERASE < 3 IU/L (10-60); AST ASPARTATE AMINOTRANSFERASE 11 IU/L (10-42); BUN - BLOOD UREA NITROGEN 15 mg/dL (6-20); CARBON DIOXIDE - CO2 20 mmol/L (21-32); CREATININE 7.1 mg/dL (0.6-1.3); GFR - MDRD 8 (>89)
--- NOTE | 2025-07-14 06:14 | PROVIDER PROGRESS NOTE ---
Hospitalist Cross-cover Note Cross-Cover Note Cross-Cover Note: per rn "Creatinine 7.1 up from 5.5 yesterday. Please advise" cr trending up since admit fortunately, pt states still making clear urine and no flank pain sharon noted on recent ct imaging continue ivf and will give bolus check renal sono lovenox stopped cefazolin dose decreased check urine studies continue close f/u
[2025-07-14] MEDS: LACTATED RINGERS 1,000 ML IV ONE (06:57)
[2025-07-14 07:46] LABS: TOTAL PROTEIN,URINE RANDOM 180.0 mg/dL; TOTAL PROTEIN,URINE TIMED 180.0 mg/dL
[2025-07-14 07:49] LABS: GLUCOSE, URINE (UA) NEGATIVE (NEGATIVE); KETONES,URINE (UA) NEGATIVE (NEGATIVE); OCCULT BLOOD,URINE TRACE-LYSED (NEGATIVE); SQUAMOUS EPITHELIAL CELL,UR RARE Squamous (<= Few)
--- NOTE | 2025-07-14 08:15 | Ultrasound Report ---
PROCEDURE: US Renal (Retroperitoneal) INDICATIONS: JATINDER TECHNIQUE: Real-time scanning was performed of the retroperitoneal organs, with image documentation. COMPARISON: 07/12/2025, 07/11/2025, 07/30/2024 FINDINGS: Kidneys: Kidneys are normal in size, with normal parenchymal echogenicity. Right kidney measures 11.5 cm long; left kidney measures 12.2 cm long. No solid masses. No hydronephrosis. No shadowing stones. No complex renal cystic lesions which require dedicated follow up. Bladder: Pre-void bladder volume is 10.8 mL. Post-void residual was not obtained. Pre-void images demonstrate no intraluminal masses or stones. On pre- void images, only the left ureteral jet can be seen with color Doppler interrogation. (Of note, ureteral jets may not be detectable in up to 25% of cases due to insufficient differences in specific gravity between ureteral and bladder urine). Miscellaneous: No free abdominal fluid. IMPRESSION: No hydronephrosis. Only the left ureteral jet can be seen. Reviewed by: Luis Enrique Torres MD on 07/14/2025 7:12 AM [facility] Approved by: Luis Enrique Torres MD on 07/14/2025 7:12 AM [facility] Station ID: [id number]
--- NOTE | 2025-07-14 08:38 | PROVIDER PROGRESS NOTE ---
Subjective Subjective Subjective: Patient has not thrown up, but is feeling comfortable. He has had some nausea, and bloating. His abdominal pain improved yesterday, but worsens again today. He has had no fevers, but still has some intermittent chills. He is still making good urine, and denies any dysuria, urinary incontinence, urinary frequency. With his worsening acute kidney injury, pancreatic pseudocyst, as well as MSSA bacteremia, patient is becoming increasingly complex, and would benefit from specialty care including nephrology, GI, infectious disease. I have spoken with [facility], and they are working on process for transfer. Current Medications Current Medications Current Medications: Current Medications Generic Name Dose Route Start Last Admin Trade Name Freq PRN Reason Stop Dose Admin Acetaminophen 650 mg 07/11/25 07:44 07/12/25 12:58 Acetaminophen 325 Mg Tablet PO 650 mg Q4HR PRN Administration Pain or Fever > 38C (100.4F) Albuterol 2.5 mg 07/11/25 05:17 Albuterol Neb 2.5 Mg/3 Ml INH Q2H PRN Wheezing, Shortness of breath Amlodipine Besylate 5 mg 07/11/25 09:00 07/14/25 08:29 Amlodipine 5 Mg Tablet PO 5 mg DAILY BENNIE Administration Benzonatate 100 mg 07/11/25 05:04 Benzonatate 100 Mg Capsule PO TID PRN Cough Calamine 1 applic 07/11/25 05:01 Calamine/Zinc Oxide 177 Ml Bottle TOP PRN PRN SKIN CARE Carboxymethylcellulose 1 drops 07/11/25 05:01 Carboxymethylcellulose Ophth Drops EACHEYE PRN PRN Dry Eye Cefazolin Sodium 1 gm 07/15/25 07:00 Cefazolin 1 Gm Vial IVP Q24H BENNIE Hydromorphone HCl 1 mg 07/12/25 16:50 07/14/25 06:57 Hydromorphone 1 Mg/Ml Carpuject IVP 1 mg Q2H PRN Administration Severe Pain (Level 7-10) Lactated Ringer's 1,000 mls @ 125 mls/hr 07/11/25 06:00 07/14/25 05:47 Lr IV 150 mls/hr .Q8H BENNIE Administration Lactobacillus Rhamnosus 1 cap 07/11/25 09:00 07/14/25 08:29 Lactobacillus Rhamnosus Gg Capsule PO 1 cap DAILY BENNIE Administration Melatonin 3 mg 07/11/25 05:07 Melatonin 3 Mg Tablet PO QPM PRN sleep Ondansetron HCl 4 mg 07/11/25 05:01 Ondansetron Odt 4 Mg Tablet PO Q6H PRN nausea and vomiting Ondansetron HCl 4 mg 07/11/25 05:04 07/13/25 19:12 Ondansetron 4 Mg/2 Ml Vial IVP 4 mg Q8H PRN Administration Nausea / Vomiting Oxycodone HCl 5 mg 07/11/25 07:44 07/12/25 12:56 Oxycodone 5 Mg Tablet PO 5 mg Q4HR PRN Administration Moderate Pain (Level 4-6) Pantoprazole Sodium 40 mg 07/11/25 08:00 07/14/25 06:56 Pantoprazole 40 Mg Tablet PO 40 mg QDAC BENNIE Administration Petrolatum 1 applic 07/11/25 05:01 Petrolatum White 5 Gm Packet TOP PRN PRN Dry Lips Phenol/Menthol 2 sprays 07/11/25 05:01 Phenol Throat [place] 177 Ml MM Q2HR PRN Throat Pain Multivit/Folic Acid/Iron 1 tab 07/13/25 08:00 07/14/25 08:29 Vitamin Tablet PO 1 tab DAILYWM BENNIE Administration Prochlorperazine Edisylate 10 mg 07/12/25 15:46 07/14/25 02:10 Prochlorperazine 10 Mg/2 Ml Vial IVP 10 mg Q6HR PRN Administration Nausea / Vomiting Propranolol HCl 20 mg 07/11/25 09:00 07/14/25 08:29 Propranolol 10 Mg Tablet PO 20 mg BID BENNIE Administration Sucralfate 1 gm 07/11/25 09:00 07/14/25 08:29 Sucralfate 1 Gm/10 Ml Udc PO 1 gm BID BENNIE Administration Thiamine HCl 100 mg 07/13/25 09:00 07/14/25 08:29 Thiamine 100 Mg Tablet PO 100 mg DAILY BENNIE Administration Throat Lozenges 1 lozenge 07/11/25 05:01 07/14/25 03:58 Benzocaine/Menthol Lozenge MM 1 lozenge Q2HR PRN Administration Throat pain Tramadol HCl 25 mg 07/12/25 18:09 07/14/25 03:58 Tramadol 50 Mg Tablet PO 25 mg Q12H PRN Administration Moderate Pain (Level 4-6) Trazodone HCl 50 mg 07/11/25 05:01 Trazodone 50 Mg Tablet PO QPM PRN Insomnia Objective Vital Signs/Intake & Output Reviewed Vital Signs: Yes Vital Signs: Vital Signs x48h Temp Pulse Resp BP Pulse Ox 07/14/25 08:27 97.9 F 77 18 169/105 H 96 Intake & Output: Intake & Output 07/11/25 07/12/25 07/13/25 07/14/25 23:59 23:59 23:59 23:59 Intake Total 3060 / 3060 4472 / 4472 2940 / 2940 1999 Output Total 100 / 100 Balance 3060 / 3060 4372 / 4372 2940 / 2940 1999 Weight (kg) 79.5 kg Objective General Appearance: positive No acute distress and Alert; negative Anxious Eyes Bilateral: positive Normal inspection, PERRL and EOMI ENT: positive ENT inspection nml, Pharynx nml and No signs of dehydration Neck: positive Nml inspection, Thyroid nml and No JVD Respiratory: positive Chest non-tender, No respiratory distress and Breath sounds nml; negative Wheezes, Rales or Rhonchi Cardiovascular: positive Regular rate & rhythm, No murmur and No gallop; negative Tachycardia or Systolic murmur Abdomen: positive No organomegaly, No distention and Tenderness (Minimal tenderness to epigastric region. No rebound tenderness. No guarding, no rigidity. Bowel sounds active.); negative Guarding or Splenomegaly Back: positive Nml inspection; negative CVA tenderness (R) or CVA tenderness (L) Skin: positive Color nml, No rash, Warm and Dry Extremities: positive Non-tender, Full ROM, Nml appearance and No pedal edema Neurologic/Psychiatric: positive Oriented x3, Motor nml and Mood/affect nml Lab Results 07/14/25 04:47 07/14/25 04:47 Other Labs: Lab Results x24hrs 07/14/25 07/14/25 07/14/25 Range/Units 06:51 06:45 06:40 WBC (4.8-10.8) x10^3/uL RBC (4.70-6.10) 10^6/uL Hgb (14.0-18.0) g/dL Hct (42.0-52.0) % MCV (80.0-94.0) fL MCH (27.0-31.0) pg MCHC (32.0-36.0) g/dL RDW (12.0-15.0) % Plt Count (130-450) 10^3/uL MPV (7.4-11.4) fL Sodium (135-145) mmol/L Potassium (3.5-4.5) mmol/L Chloride (101-111) mmol/L Carbon Dioxide (21-32) mmol/L Anion Gap (6-13) BUN (6-20) mg/dL Creatinine (0.6-1.3) mg/dL Estimated GFR (MDRD) (>89) Glucose (74-104) mg/dL Calcium (8.5-10.3) mg/dL Magnesium (1.7-2.3) mg/dL Total Bilirubin (0.2-1.0) mg/dL AST (10-42) IU/L ALT (10-60) IU/L Alkaline Phosphatase (42-121) IU/L Total Creatine Kinase 29 L (30-223) IU/L Total Protein (6.4-8.9) g/dL Albumin (3.2-5.5) g/dL Globulin (2.1-4.2) g/dL Albumin/Globulin Ratio (1.0-2.2) Urine Color YELLOW Urine Clarity CLEAR (CLEAR) Urine pH 6.0 (5.0-7.5) PH Ur Specific [place] 1.015 (1.002-1.030) Urine Protein >=300 H (NEGATIVE) mg/dL Urine Glucose (UA) NEGATIVE (NEGATIVE) mg/dL Urine Ketones NEGATIVE (NEGATIVE) mg/dL Urine Occult Blood TRACE-LYSED (NEGATIVE) Urine Nitrite NEGATIVE (NEGATIVE) Urine Bilirubin NEGATIVE (NEGATIVE) Urine Urobilinogen 0.2 (NORMAL) (NORMAL) E.U./dL Ur Leukocyte Esterase NEGATIVE (NEGATIVE) Urine RBC 0-5 (0-5) /HPF Urine WBC 6-10 H (0-3) /HPF Ur Squamous Epith Cells RARE Squamous (<= Few) Urine Bacteria Rare (None Seen) /HPF Urine Culture Comments NOT INDICATED U Random Total Protein 180 mg/dL Urine Creatinine 96.0 mg/dL Ur Total Protein Timed 180 mg/dL Protein/Creatinin Ratio 1.9 H (<=0.2) Urine Sodium 55.8 mmol/L 12//25 Range/Units 04:47 WBC 12.6 H (4.8-10.8) x10^3/uL RBC 3.35 L (4.70-6.10) 10^6/uL Hgb 10.7 L (14.0-18.0) g/dL Hct 32.0 L (42.0-52.0) % MCV 95.5 H (80.0-94.0) fL MCH 31.9 H (27.0-31.0) pg MCHC 33.4 (32.0-36.0) g/dL RDW 13.6 (12.0-15.0) % Plt Count 195 (130-450) 10^3/uL MPV 9.4 (7.4-11.4) fL Sodium 136 (135-145) mmol/L Potassium 3.3 L (3.5-4.5) mmol/L Chloride 104 (101-111) mmol/L Carbon Dioxide 20 L (21-32) mmol/L Anion Gap 12.0 (6-13) BUN 15 (6-20) mg/dL Creatinine 7.1 H* (0.6-1.3) mg/dL Estimated GFR (MDRD) 8 L (>89) Glucose 102 (74-104) mg/dL Calcium 8.1 L (8.5-10.3) mg/dL Magnesium 1.3 L (1.7-2.3) mg/dL Total Bilirubin 0.2 (0.2-1.0) mg/dL AST 11 (10-42) IU/L ALT < 3 L (10-60) IU/L Alkaline Phosphatase 51 (42-121) IU/L Total Creatine Kinase (30-223) IU/L Total Protein 5.3 L (6.4-8.9) g/dL Albumin 3.1 L (3.2-5.5) g/dL Globulin 2.2 (2.1-4.2) g/dL Albumin/Globulin Ratio 1.4 (1.0-2.2) Urine Color Urine Clarity (CLEAR) Urine pH (5.0-7.5) PH Ur Specific [place] (1.002-1.030) Urine Protein (NEGATIVE) mg/dL Urine Glucose (UA) (NEGATIVE) mg/dL Urine Ketones (NEGATIVE) mg/dL Urine Occult Blood (NEGATIVE) Urine Nitrite (NEGATIVE) Urine Bilirubin (NEGATIVE) Urine Urobilinogen (NORMAL) E.U./dL Ur Leukocyte Esterase (NEGATIVE) Urine RBC (0-5) /HPF Urine WBC (0-3) /HPF Ur Squamous Epith Cells (<= Few) Urine Bacteria (None Seen) /HPF Urine Culture Comments U Random Total Protein mg/dL Urine Creatinine mg/dL Ur Total Protein Timed mg/dL Protein/Creatinin Ratio (<=0.2) Urine Sodium mmol/L Assessment/Plan Problem List (1) MSSA bacteremia: Impression: Initially, patient presented with abdominal pain. CT abdomen/pelvis completed 07/08 showed prominent gastric wall thickening, as well as perigastric fluid and inflammatory changes at the gastric body, concern was for perforated ulcer versus pancreatic pseudocyst. Upon discussion with general surgery, favored the latter. Patient's pain improved, and he was discharged home and advised to follow-up closely for repeat CT scan. Blood cultures were drawn on admission, 07/09. 1 out of 2 positive for Staphylococcus aureus. He was advised to return, and started on IV antibiotics. Staphylococcus aureus is typically not a contaminant. Conditions that favor it being so are the fact that it was present in only 1 out of 2 of the bottles, and that it grew out over 20 hours after being drawn. However, patient's clinical picture with leukocytosis, tachycardia, as well as known pseudocyst suggests the contrary. Susceptibilities indicate MSSA, and patient has been started on cefazolin. He will need a 14-day course of IV antibiotics. Source is likely the pseudocyst. No other signs or symptoms of infection including skin or soft tissue. Repeat blood cultures drawn 07/11 are no growth to date. TTE has been completed, no obvious vegetations noted. Plan for PICC line placement today. Plan for home infusions, social work is following. Slight improvement in leukocytosis today, continue to monitor. (2) Pancreatic pseudocyst: (3) Acute abdominal pain: Impression: CT abdomen/pelvis completed 07/08 showed prominent gastric wall thickening, as well as perigastric fluid and inflammatory changes at the gastric body, concern was for perforated ulcer versus pancreatic pseudocyst. Upon discussion with general surgery, favored the latter. Overnight, on 07/12, patient had increasing abdominal pain. No peritoneal signs noted. Abdomen/pelvis CT was repeated which showed suspected perforated gastritis or ulcer with interval development of fluid collection measuring 5.1 cm in maximum diameter. CT scan was repeated with oral contrast, and no extravasation of the contrast was noted. Discussed with general surgery. Likely pseudocyst not perforation. Continue full liquids. (4) Acute kidney injury: Impression: Patient's creatinine has steadily been increasing; this morning it is 7.1. He is still making adequate urine, and there are no electrolyte disturbances. Not retaining urine. Renal ultrasound is unremarkable. Urine electrolytes, urine sodium are ordered, pending. Patient does have proteinuria of 180. Serum albumin is 3.1. He has no edema at this time. Currently, does not meet the diagnostic criteria for nephrotic syndrome. At this time, favor ATN due to sepsis or due to cefazolin versus contrast mediated nephropathy. Continue IV fluid rehydration. Continue to monitor electrolytes. Patient would benefit from nephrology consult and transfer. [facility] has been reached out to regarding this, awaiting callback. Cefazolin is being renally dosed. (5) Gastric varices without bleeding: Impression: Continue propranolol. No signs of hematemesis or active bleeding noted from varices. (6) Portal vein thrombosis: Impression: Chronic, patient currently not on any anticoagulation. He will need close follow-up with GI. (7) Alcohol use: Impression: Patient continues to drink daily. Continue to monitor off CIWA. Patient is not exhibiting signs of alcohol withdrawal at this time. Continue oral thiamine and folic acid supplementation.
[2025-07-14 11:27] LABS: BUN - BLOOD UREA NITROGEN 15.0 mg/dL (6-20); CARBON DIOXIDE - CO2 18.0 mmol/L (21-32); CREATININE 7.2 mg/dL (0.6-1.3); GFR - MDRD 8.0 (>89)
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
[2025-07-14 18:15] LABS: BUN - BLOOD UREA NITROGEN 17.0 mg/dL (6-20); CARBON DIOXIDE - CO2 19.0 mmol/L (21-32); CREATININE 7.6 mg/dL (0.6-1.3); GFR - MDRD 8.0 (>89)
[2025-07-14 21:35] VITALS: BP 161/108; TEMP 97.5; O2SAT 99
== END 2025-07-14 21:22 | disposition short-term general hospital (02) | DRG 871 ==
LOC: ED 22:25 → MS2 22:25
PROVIDERS: ADMIT Student in an Organized Health Care Education/Training Program; ATTEND Student in an Organized Health Care Education/Training Program
DX: I86.4 Gastric varices; I10 Essential (primary) hypertension; K29.70 Gastritis, unspecified, without bleeding; A41.01 Sepsis due to Methicillin susceptible Staphylococcus aureus; N17.0 Acute kidney failure with tubular necrosis; R65.20 Severe sepsis without septic shock; I81 Portal vein thrombosis; F17.210 Nicotine dependence, cigarettes, uncomplicated; K85.90 Acute pancreatitis without necrosis or infection, unspecified; K86.3 Pseudocyst of pancreas; I85.00 Esophageal varices without bleeding